=== PATIENT | female | born 1965 | race Two or more races ===

== ENCOUNTER 2023-08-13 15:07 | Inpatient (IN) | payer MEDICAID ==
[~2023-08-13] VITALS: Ht 162.6 cm; Wt 101.8 kg
[2023-08-13 15:40] VITALS: PULSE 57; RESP 10; O2SAT 96
[2023-08-13 16:00] LABS: Basophils # (auto) 0.1 10 ^3/uL (0-0.2); Eosinophils # (auto) 0.3 10 ^3/uL (0-0.8); Eosinophils % (auto) 2.2 % (0.0-7.0); Hemoglobin 11.3 g/dL (12.2-16.2); Lymphocytes # (auto) 1.8 10 ^3/uL (0.4-5.4); Neutrophils # (auto) 8.6 10 ^3/uL (1.6-8.6); White Blood Cell 11.7 10^3/uL (4.4-10.8)
[2023-08-13 16:01] LABS: Basophils % (auto) 0.9 % (0.0-2.0); Hematocrit 36.9 % (36.0-46.0); Mean Corpuscular Hemoglobin 19.3 pg (28.0-32.0); Mean Corpuscular Hgb Conc. 30.7 g/dL (32.0-36.0); Mean Corpuscular Volume 63.1 fL (80.0-100.0); Monocytes % (auto) 8.8 % (0.0-12.0); Neutrophils % (auto) 73.1 % (37.0-80.0); Red Blood Cells 5.85 10^6/uL (4.0-5.20)
[2023-08-13 16:02] LABS: Red Cell Distribution Width 24.6 % (11.8-14.3)
[2023-08-13 16:11] LABS: Alanine Aminotransferase 12 U/L (7-40); Albumin 4.1 g/dL (3.2-4.8); Alkaline Phosphatase 108 U/L (46-116); Anion Gap 8 (5-15); Aspartate Aminotransferase 16 U/L (13-40); BUN/Creatinine Ratio 25.6 (10.0-20.0); Bilirubin, Total 0.2 mg/dL (0.2-1.0); Blood Urea Nitrogen 40 mg/dL (9-23); Calcium 9.6 mg/dL (8.5-10.1); Carbon Dioxide 28 mmol/L (20-30); Chloride 103 mmol/L (98-107); Glucose 162 mg/dL (74-106); Potassium 3.9 mmol/L (3.5-5.1); Sodium 139 mmol/L (136-145); Total Protein 6.8 g/dL (5.7-8.2)
[2023-08-13 16:20] LABS: Anisocytosis Moderate; Hypochromia Marked; Large Platelets FEW; Platelet Estimate Adequate; Tear Drop Cells FEW
[2023-08-13] MEDS ORDERED: DEXTROSE (50%) 50ML SYRG IV PRN (19:30)
[2023-08-13] MEDS ORDERED: PREG200C36 PO (19:45)
[2023-08-13] MEDS ORDERED: DULO1CAP6 PO (19:45)
[2023-08-13] MEDS ORDERED: NITROGLYCERIN 0.4 MG SL TAB SL PRN (19:45)
[2023-08-13] MEDS ORDERED: FURO40TA4 PO (19:45)
[2023-08-13] MEDS ORDERED: ASPI81CH49 PO (19:45)
[2023-08-13] MEDS ORDERED: AMIO200T13 PO (19:45)
[2023-08-13] MEDS ORDERED: CYCL-611 PO (19:45)
[2023-08-13] MEDS ORDERED: ACETAMINOPHEN 325 MG TAB PO PRN (19:45)
[2023-08-13] MEDS ORDERED: FENO145T27 PO (19:45)
[2023-08-13] MEDS ORDERED: FAMO-12 PO (19:45)
[2023-08-13] MEDS ORDERED: APIX5TAB PO (19:45)
[2023-08-13] MEDS ORDERED: MORPHINE SULFATE INJ 2 MG/ml SYRG IV PRN (19:45)
[2023-08-13] MEDS ORDERED: ATOR40TA52 PO (19:45)
[2023-08-13] MEDS ORDERED: HYDR1TAB97 PO (19:45)
[2023-08-13] MEDS ORDERED: LISI2.5T47 PO (19:45)
[2023-08-13 19:52] LABS: Triglycerides 224 mg/dL (< 150)
[2023-08-13 19:53] LABS: LDL Cholesterol 83 mg/dL (< 100)
[2023-08-13 19:54] LABS: Cholesterol 152 mg/dL (< 200); HDL Cholesterol 41 mg/dL (40-59)
[2023-08-13 20:32] VITALS: PULSE 54; RESP 11; O2SAT 95
[2023-08-13 20:49] VITALS: PULSE 67; RESP 16; O2SAT 100
[2023-08-13 21:20] LABS: Amphetamine Screen, Urine Neg (NEGATIVE); Barbiturate Scree,Urine Neg (NEGATIVE); Benzodiazephine Screen, Urine Neg (NEGATIVE); Cocaine Screen, Urine Neg (NEGATIVE)
[2023-08-13 21:21] LABS: Cannabinoid Screen, Urine Neg (NEGATIVE); Opiate Scree,Urine Neg (NEGATIVE); Phencyclidine Screen, Urine Neg (NEGATIVE)
[2023-08-13] MEDS: SODIUM CHLORIDE 0.9% 1,000 ML IV ONE (21:51)
[2023-08-13] MEDS: SODIUM CHLORIDE 0.9% 1,000 ML IV SCH (21:59)
[2023-08-13] MEDS: PREGABALIN 25 MG CAP PO SCH (22:16)
[2023-08-13] MEDS: PREGABALIN CAPSULE 75 MG CAP PO SCH (22:16)
[2023-08-13] MEDS: AMIODARONE HCL 200 MG TAB PO SCH (22:17)
[2023-08-13] MEDS: APIXABAN 5 MG TAB PO SCH (22:17)
[2023-08-13] MEDS: ACCU-CHEK COMFORT CURVE STRIP VI SCH (22:17)
[2023-08-13] MEDS: InsuLIN REG 1unit/0.01ml Soln (100units/ml) SC SCH (22:18)
[2023-08-13 22:40] VITALS: BP 120/64; PULSE 63; RESP 17; TEMP 97.7; O2SAT 98
[2023-08-14] VITALS (8 sets, daily range): BP systolic 118–152; BP diastolic 70–85; PULSE 61–73; RESP 16–20; TEMP 97.8–98.2; O2SAT 94–97
[2023-08-14 07:12] LABS: Basophils # (auto) 0.1 10 ^3/uL (0-0.2); Eosinophils # (auto) 0.2 10 ^3/uL (0-0.8); Eosinophils % (auto) 2.8 % (0.0-7.0); Hemoglobin 11.1 g/dL (12.2-16.2); Lymphocytes # (auto) 1.3 10 ^3/uL (0.4-5.4); Neutrophils # (auto) 5.1 10 ^3/uL (1.6-8.6)
[2023-08-14 07:14] LABS: Basophils % (auto) 1.2 % (0.0-2.0); Hematocrit 36.4 % (36.0-46.0); Lymphocytes % (auto) 17.6 % (10.0-50.0); Mean Corpuscular Hemoglobin 19.4 pg (28.0-32.0); Mean Corpuscular Hgb Conc. 30.4 g/dL (32.0-36.0); Mean Corpuscular Volume 63.7 fL (80.0-100.0); Monocytes # (auto) 0.6 10 ^3/uL (0-1.3); Monocytes % (auto) 8.7 % (0.0-12.0); Neutrophils % (auto) 69.7 % (37.0-80.0); Nucleated Red Blood Cells % 0.1 %; Red Blood Cells 5.72 10^6/uL (4.0-5.20); White Blood Cell 7.4 10^3/uL (4.4-10.8)
[2023-08-14 07:19] LABS: Alkaline Phosphatase 100 U/L (46-116); Anion Gap 9 (5-15); Aspartate Aminotransferase 18 U/L (13-40); BUN/Creatinine Ratio 19.1 (10.0-20.0); Calcium 9.4 mg/dL (8.5-10.1); Carbon Dioxide 25 mmol/L (20-30); Chloride 106 mmol/L (98-107); Glucose 192 mg/dL (74-106); Potassium 4.2 mmol/L (3.5-5.1); Sodium 140 mmol/L (136-145)
[2023-08-14 07:20] LABS: Bilirubin, Total 0.3 mg/dL (0.2-1.0); Total Protein 6.9 g/dL (5.7-8.2)
[2023-08-14 07:22] LABS: Alanine Aminotransferase 9 U/L (7-40); Blood Urea Nitrogen 25 mg/dL (9-23)
[2023-08-14 07:25] LABS: Red Cell Distribution Width 24.7 % (11.8-14.3)
[2023-08-14] MEDS: ATORVASTATIN 20 MG TAB PO SCH (10:46)
[2023-08-14] MEDS: ASPirin 81 mg TAB PO SCH (10:46)
[2023-08-15] VITALS (9 sets, daily range): BP systolic 126–168; BP diastolic 57–89; PULSE 60–86; RESP 14–20; TEMP 36.8; O2SAT 96–98
[2023-08-15] MEDS: FLECAINIDE ACETATE 50 MG TAB PO ONE (10:31)
[2023-08-15] MEDS ORDERED: FLE50T PO (17:17)
[2023-08-15] MEDS ORDERED: FLECAINIDE ACETATE 50 MG TAB PO SCH (22:00)
== END 2023-08-15 18:40 | disposition home or self-care (01) | DRG 204 ==
LOC: EDBD 15:07 → ER 15:07 → TELE-WESTW 19:43 → TELE 19:43 → TELE-WESTW 23:19
PROVIDERS: ADMIT Nurse Practitioner Family; ATTEND Nurse Practitioner Acute Care
DX: I95.1 Orthostatic hypotension (principal); J96.01 Acute respiratory failure with hypoxia; N17.9 Acute kidney failure, unspecified; I49.5 Sick sinus syndrome; I24.9 Acute ischemic heart disease, unspecified; I48.0 Paroxysmal atrial fibrillation; E11.22 Type 2 diabetes mellitus with diabetic chronic kidney disease; E11.65 Type 2 diabetes mellitus with hyperglycemia; E66.01 Morbid (severe) obesity due to excess calories; E78.5 Hyperlipidemia, unspecified; N18.31 Chronic kidney disease, stage 3a; F17.210 Nicotine dependence, cigarettes, uncomplicated; I12.9 Hypertensive chronic kidney disease with stage 1 through stage 4 chronic kidney disease, or unspecified chronic kidney disease; Z79.4 Long term (current) use of insulin; Z79.82 Long term (current) use of aspirin; Z82.49 Family history of ischemic heart disease and other diseases of the circulatory system; Z86.711 Personal history of pulmonary embolism; Z88.0 Allergy status to penicillin; Z68.38 Body mass index [BMI] 38.0-38.9, adult
CPT/HCPCS: 36415; 71045; 80053; 80061; 80307; 82962; 83036; 83880; 83930; 84443; 84484; 85025; 85379; 86701; 86703; 93005; 93306; 93886; 99291; G0378; J1815

== ENCOUNTER 2023-08-21 19:47 | Emergency (ER) | payer MEDICAID ==
[~2023-08-21] VITALS: Ht 162.6 cm; Wt 100.0 kg
[~2023-08-21 19:47] MED LIST: APIX5TAB PO; ASPI81CH49 PO; ATOR40TA52 PO; CYCL-611 PO; DULO1CAP6 PO; FAMO-12 PO; FENO145T27 PO; FLE50T PO; FURO40TA4 PO; HYDR1TAB97 PO; LISI2.5T47 PO; PREG200C36 PO
[2023-08-21 21:33] LABS: Alanine Aminotransferase 19 U/L (7-40); Albumin 3.9 g/dL (3.2-4.8); Alkaline Phosphatase 108 U/L (46-116); Anion Gap 6 (5-15); Aspartate Aminotransferase 26 U/L (13-40); BUN/Creatinine Ratio 12.9 (10.0-20.0); Blood Urea Nitrogen 22 mg/dL (9-23); Calcium 9.4 mg/dL (8.7-10.4); Carbon Dioxide 31 mmol/L (20-30); Chloride 102 mmol/L (98-107); Glucose 174 mg/dL (74-106); Potassium 3.7 mmol/L (3.5-5.1); Sodium 139 mmol/L (136-145)
[2023-08-21 21:34] LABS: Bilirubin, Total 0.2 mg/dL (0.2-1.0); Total Protein 6.8 g/dL (5.7-8.2)
[2023-08-21 21:41] LABS: Basophils # (auto) 0.1 10 ^3/uL (0-0.2); Eosinophils # (auto) 0.2 10 ^3/uL (0-0.8); Hemoglobin 11.3 g/dL (12.2-16.2); Lymphocytes # (auto) 1.5 10 ^3/uL (0.4-5.4); Mean Corpuscular Volume 64.5 fL (80.0-100.0); White Blood Cell 9.6 10^3/uL (4.4-10.8)
[2023-08-21 21:43] LABS: Basophils % (auto) 1.2 % (0.0-2.0); Lymphocytes % (auto) 15.3 % (10.0-50.0); Mean Corpuscular Hemoglobin 20.2 pg (28.0-32.0); Mean Corpuscular Hgb Conc. 31.3 g/dL (32.0-36.0); Monocytes # (auto) 0.8 10 ^3/uL (0-1.3); Monocytes % (auto) 8.8 % (0.0-12.0); Neutrophils % (auto) 72.7 % (37.0-80.0); Red Blood Cells 5.58 10^6/uL (4.0-5.20)
[2023-08-21 21:49] LABS: Red Cell Distribution Width 25.4 % (11.8-14.3)
[2023-08-21 22:19] LABS: Anisocytosis Moderate; Platelet Estimate Adequate
[2023-08-21 22:20] LABS: Hypochromia Moderate; Ovalocytes FEW
[2023-08-21] MEDS: IOHEXOL 350 MG/ML 100ML IJ ONE (23:47)
[2023-08-22 00:01] VITALS: BP 126/59; PULSE 60; RESP 18; TEMP 98.4; O2SAT 99
== END 2023-08-22 00:05 | disposition home or self-care (01) ==
LOC: ER 19:47
DX: R53.1 Weakness (principal); R06.02 Shortness of breath; R55 Syncope and collapse; E11.22 Type 2 diabetes mellitus with diabetic chronic kidney disease; I12.9 Hypertensive chronic kidney disease with stage 1 through stage 4 chronic kidney disease, or unspecified chronic kidney disease; N18.9 Chronic kidney disease, unspecified; E78.5 Hyperlipidemia, unspecified; F17.210 Nicotine dependence, cigarettes, uncomplicated; F12.10 Cannabis abuse, uncomplicated; Z90.49 Acquired absence of other specified parts of digestive tract; Z88.0 Allergy status to penicillin; Z88.6 Allergy status to analgesic agent
CPT/HCPCS: 36415; 70450; 71045; 71275; 80053; 84484; 85025; 85379; 93005; 99285; Q9967

== ENCOUNTER 2024-06-05 18:18 | Inpatient (IN) | payer MEDICAID ==
[~2024-06-05] VITALS: Ht 193 cm; Wt 100.0 kg
[2024-06-05 19:02] LABS: Basophils # (auto) 0.1 10 ^3/uL (0-0.2); Eosinophils # (auto) 0.4 10 ^3/uL (0-0.8); Eosinophils % (auto) 4.8 % (0.0-7.0); Hemoglobin 12.9 g/dL (12.2-16.2); Lymphocytes % (auto) 13.1 % (10.0-50.0); Mean Corpuscular Hemoglobin 28.1 pg (28.0-32.0); Mean Corpuscular Hgb Conc. 33.1 g/dL (32.0-36.0); Monocytes % (auto) 13.2 % (0.0-12.0); Neutrophils # (auto) 5.2 10 ^3/uL (1.6-8.6); Neutrophils % (auto) 67.9 % (37.0-80.0); Nucleated Red Blood Cells % 0.1 %; Platelet Count (auto) 88 10^3/uL (140-450); Red Blood Cells 4.59 10^6/uL (4.0-5.20); White Blood Cell 7.6 10^3/uL (4.4-10.8)
--- NOTE | 2024-06-05 19:05 | ED.PDOC ---
HPI Comments 58-year-old female that came to the ER for chest pains. Patient has history of hypertension, diabetes, dyslipidemia, chronic kidney failure, CHF, AFib and HIV. Patient is on blood thinners, Eliquis. Patient discharged yesterday at [facility] for left-sided epistaxis. At the both 3:00 a.m. this morning, patient started experiencing sharp, sudden left-sided chest pains, nonradiating with shortness of breath. Upon arrival of paramedics, noted blood pressure of 86/5 mmHg. Saturating 96% on room air. Patient was given IV fluids while en route to the ER. Chief Complaint: Chest Pain Time Seen by MD: 19:05 Primary Care Provider: CANDICE Reviewed Notes: Wheel Blocker Notes Allergies: Coded Allergies: Loperamide (Verified Allergy, Severe, 08/13/23) Nystatin (Verified Allergy, Severe, 08/13/23) Penicillins (Verified Allergy, Severe, 08/13/23) Home Meds Active Scripts Flecainide Acetate (TAMBOCOR TABLET) 50 Mg Tb, 50 MG PO Q12HR for 30 Days, #60 TAB Prov:RAINER DIAZ EMOTIONAL SUPPORT TEACHER 08/15/23 Reported Medications Cyclobenzaprine HCl (Cyclobenzaprine Hydrochlo) 10 Mg Tab, 1 TAB PO BIDPRN PRN 08/13/23 Famotidine (Famotidine) 20 Mg Tab, 1 TAB PO BIDPRN PRN 08/13/23 Furosemide (Furosemide) 40 Mg Tab, 1 TAB PO DAILY 08/13/23 Hydrocodone-Acetaminophen (Hydrocodone/Acetaminophen 5-325 mg) 1 Tab Tab, 2 TAB PO BID 08/13/23 Duloxetine HCl (Duloxetine HCl) 60 Mg Cap, CAP PO 08/13/23 Pregabalin (Pregabalin) 200 Mg Cap, 1 CAP PO TID 08/13/23 Fenofibrate (FENOFIBRATE) 145 Mg Tab, 1 TAB PO 08/13/23 Lisinopril (Lisinopril) 2.5 Mg Tab, 1 TAB PO DAILY 08/13/23 Apixaban Base (ELIQUIS) 5 Mg Tab, 1 TAB PO BID 08/13/23 Aspirin (Aspirin) 81 Mg Chw, 1 TAB PO DAILY 08/13/23 Atorvastatin Calcium (ATORVASTATIN CALCIUM) 40 Mg Tab, 1 TAB PO DAILY 08/13/23 Information Source: Patient, Emergency Med Personnel Mode of Arrival: EMS Severity: Moderate Timing: Hours Duration: Intermittent Prehospital treatment: 12 Lead EKG, IVF, Oxygen Location: Chest (L) Radiation: No Radiation Quality: Sharp Onset: At Rest Cardiac Risk Factors: Hyperlipidemia, HTN, Diabetes PE Risk Factors: None History of: Similar pain in past Modifying Factors: Nothing Associated Signs and Symptoms: SOB Past Medical History PAST MEDICAL HISTORY: AFIB, CKF, DM, High Lipids, HIV, HTN Surgical History: Cholecystectomy, Hernia Repair 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 Pertinent GRADING MACHINE FEEDER History Family History Family History: Family hx of heart shanta Social History Smoker: Non-Smoker Alcohol: Occasionally Drugs: Marijuana Lives In: Home Constitutional: denies: chills, diaphoresis, fatigue, fever, malaise, sweats, weakness, others EENTM: reports: nose bleeding (Left-sided epistaxis); denies: blurred vision, double vision, ear bleeding, ear discharge, ear drainage, ear pain, ear ringing, eye pain, eye redness, hearing loss, mouth pain, mouth swelling, nasal discharge, nose congestion, nose pain, photophobia, tearing, throat pain, throat swelling, voice changes, others Respiratory: reports: shortness of breath; denies: cough, hemoptysis, orthopnea, SOB at rest, SOB with excertion, stridor, wheezing, others Cardiovascular: reports: chest pain Gastrointestinal: denies: abdomen distended, abdominal pain, blood streaked bowels, constipated, diarrhea, dysphagia, difficulty swallowing, hematemesis, melena, nausea, poor appetite, poor fluid intake, rectal bleeding, rectal pain, vomiting, others Genitourinary: denies: abnormal vagina bleeding, burning, dyspareunia, dysuria, flank pain, frequency, hematuria, incontinence, pain, , vagina discharge, urgency, others Neurological: denies: dizziness, fainting, headache, left sided numbness, left sided weakness, numbness, paresthesia, pre-existing deficit, right sided numbness, right sided weakness, seizure, speech problems, tingling, tremors, weakness, others Musculoskeletal: denies: back pain, gout, joint pain, joint swelling, muscle p ain, muscle stiffness, neck pain, others Integumetry: denies: bruises, change in color, change in hair/nails, dryness, laceration, lesions, lumps, rash, wounds, others Allergic/Immunocompromised: denies: Difficulty Healing, Frequent Infections, Hives, Itching, others Hematologic/Lymphatic: denies: anemia, blood clots, easy bleeding, easy bruising, swollen glands, others Endocrine: denies: excessive hunger, excessive sweating, excessive thirst, excessive urination, flushing, intolerance to cold, intolerance to heat, unexplained weight gain, unexplained weight loss, others Psychiatric: denies: anxiety, bipolar disorder, depression, hopeless, panic disorder, schizophrenia, sleepless, suicidal, others Physical Exam General Appearance: Obese HEENT: Normal ENT Inspection, Pharynx Normal, TMs Normal Neck: Full Range of Motion, Non-Tender, Normal, Normal Inspection Respiratory: Chest Non-Tender, Lungs Clear, No Accessory Muscle Use, No Respiratory Distress, Normal Breath Sounds Cardiovascular: No Edema, No JVD, No Murmur, No Gallop, Normal Peripheral Pulses, Regular Rate/Rhythm Breast Exam: Deferred Gastrointestinal: No Organomegaly, Non Tender, No Pulsatile Mass, Normal Bowel Sounds, Soft Genitalia: Deferred Pelvic: Deferred Rectal: Deferred Extremities: No calf tenderness, Normal capillary refill, Normal inspection, Normal range of motion, Non-tender, No pedal edema Musculoskeletal : Apperance: Normal Neurologic: Alert, preflight inspector II-XII nml as Tested, No Motor Deficits, Normal Affect, Normal Mood, No Sensory Deficits Cerebellar Function: Normal Reflexes: Normal Skin: Dry, Normal Color, Warm Lymphatic: No Adenopathy Was a procedure done? Was a procedure done?: No CP Differential Dx Differential Diagnosis: Angina, Anxiety / Panic Attack Differential Diagnosis: CHF Differential Diagnosis: Angina, Chest Wall Pain, Costochondritis, Esophageal reflux/spasm, Gastritis, Myocardial Infarction X-Ray, Labs, Meds, VS Vital Signs Date Time Temp Pulse Resp B/P (MAP) Pulse Ox O2 Delivery O2 Flow Rate FiO2 06/05/24 19:15 53 06/05/24 18:45 53 14 92/48 (63) 94 06/05/24 18:30 99.2 59 18 112/89 (97) 96 06/05/24 18:18 55 Lab Test 06/05/24 19:56 06/05/24 18:58 06/05/24 18:44 Range/Units Troponin I High Sensitivity Pending Pending 4 </=34 ng/L White Blood Count 7.6 4.4-10.8 10^3/uL Red Blood Count 4.59 4.0-5.20 10^6/uL Hemoglobin 12.9 12.2-16.2 g/dL Hematocrit 39.0 36.0-46.0 % Mean Corpuscular Volume 85.0 80.0-100.0 fL Mean Corpuscular Hemoglobin 28.1 28.0-32.0 pg Mean Corpuscular Hemoglobin Concent 33.1 32.0-36.0 g/dL Red Cell Distribution Width 20.3 H 11.8-14.3 % Platelet Count 88 L 140-450 10^3/uL Mean Platelet Volume 10.2 6.9-10.8 fL Neutrophils (%) (Auto) 67.9 37.0-80.0 % Lymphocytes (%) (Auto) 13.1 10.0-50.0 % Monocytes (%) (Auto) 13.2 H 0.0-12.0 % Eosinophils (%) (Auto) 4.8 0.0-7.0 % Basophils (%) (Auto) 1.0 0.0-2.0 % Neutrophils # (Auto) 5.2 1.6-8.6 10 ^3/uL Lymphocytes # (Auto) 1.0 0.4-5.4 10 ^3/uL Monocytes # (Auto) 1.0 0-1.3 10 ^3/uL Eosinophils # (Auto) 0.4 0-0.8 10 ^3/uL Basophils # (Auto) 0.1 0-0.2 10 ^3/uL Nucleated Red Blood Cells 0.1 % Platelet Estimate Decreased Large Platelets Few Anisocytosis (manual) Slight Sodium Level 140 136-145 mmol/L Potassium Level 4.0 3.5-5.1 mmol/L Chloride Level 109 H 98-107 mmol/L Carbon Dioxide Level 25 20-31 mmol/L Anion Gap 6 5-15 Blood Urea Nitrogen 23 9-23 mg/dL Creatinine 1.51 H 0.550-1.02 mg/dL Glomerular Filtration Rate Calc 40 >90 mL/min BUN/Creatinine Ratio 15.2 10.0-20.0 Serum Glucose 59 L 74-106 mg/dL Calcium Level 9.9 8.7-10.4 mg/dL B-Type Natriuretic Peptide 29.91 0-100 pg/mL Current Medications Medications (Trade) Dose Ordered Sig/Uyen Route Start Time Stop Time Status Last Admin Sodium Chloride 1,000 ml @ 1,000 mls/hr Q1H ONCE IV 06/05/24 19:45 06/05/24 20:44 06/05/24 19:58 CHEST RADIOGRAPH Indication: chest pain Technique: Frontal and lateral view of the chest was obtained Comparison: None FINDINGS: Lines and Tubes: None Lungs: Clear Pleura: No effusion. No pneumothorax. Cardiomediastinal contours: Unremarkable Bones: Unremarkable IMPRESSION: 1. No evidence of acute disease. Time of 1ST Reevaluation: 18:58 Reevaluation 1ST: Unchanged Patient Education/Counseling: Diagnosis, Treatment Family Education/Counseling: No Family Present Departure 1 Departure Time of Disposition: 20:18 (Patient presented with chest pain that was conc erning for possible STEMI, ACS, PE, Pneumonia, Muscle Strain, COPD, Dissection. Data: 1. I ordered and reviewed the result of at least 3 labs including a CBC, BMP, and Troponin. 2. I independently interpreted the following tests: EKG which shows atrial fibrillation and Chest X-ray which shows benign chest.Risk:This patient has a high risk of morbidity due to further diagnostic testing or treatment and may suffer from an acute cardiac or respiratory disorder. Workup reveals concern for ACS and patient should be admitted for further workup and possible expert consultation. ) Impression: Primary Impression: Acute chest pain Additional Impressions: Generalized weakness Epistaxis Disposition: ADMITTED INPATIENT Admit to: Med Surg Condition: Serious Critical Care Note Critical Care Time?: Yes Critical care comment: Acute chest pain Authorized and Performed by: Ashwin Griffiths MD Total critical care time: Approximately 34 minutes Due to a high probability of clinically significant, life threatening deterioration, the patient required my highest level of preparedness to intervene emergently and I personally spent this critical care time directly and personally managing the patient. This critical care time included obtaining a history; examining the patient; pulse oximetry; ordering and review of studies; arranging urgent treatment with development of a management plan; evaluation of patient's response to treatment; frequent reassessment; and, discussions with other providers. This critical care time was performed to assess and manage the high probability of imminent, life-threatening deterioration that could result in multi-organ failure. It was exclusive of separately billable procedures and treating other patients and teaching time. Please see my other sections and the rest of the note for further information on patient assessment and treatment. Stability Stability form required: No Heart Score Heart Score: Heart Score Response (Comments) Value History Moderate Suspicious 1 EKG Repolarization Disturb 1 Age 45-64 1 Risk Factors >3 or Hx ASHD 2 Troponin Normal limit 0 Total 5 I personally scribed for ASHWIN GRIFFITHS MD ([facility]IST [facility]) on 06/05/24 at 19:05. Electronically submitted by Adan Arguello ([facility]). I personally scribed for ASHWIN GRIFFITHS MD ([email or web address]) on 06/05/24 at 20:18. Electronically submitted by Adan Arguello ([facility]). ASHWIN GRIFFITHS MD Jun 05, 2024 19:05
[2024-06-05 19:15] LABS: Sodium 140 mmol/L (136-145)
[2024-06-05 19:16] LABS: Anion Gap 6 (5-15); Calcium 9.9 mg/dL (8.7-10.4); Carbon Dioxide 25 mmol/L (20-31)
[2024-06-05 19:20] LABS: Red Cell Distribution Width 20.3 % (11.8-14.3)
[2024-06-05 19:21] LABS: Anisocytosis Slight; BUN/Creatinine Ratio 15.2 (10.0-20.0); Platelet Estimate Decreased
[2024-06-05 19:22] LABS: Blood Urea Nitrogen 23 mg/dL (9-23); Chloride 109 mmol/L (98-107); Glucose 59 mg/dL (74-106); Large Platelets FEW
[2024-06-05] MEDS: SODIUM CHLORIDE 0.9% 1,000 ML IV ONE ×2 (19:58→21:30)
[2024-06-05] MEDS: ASPirin 325 MG TAB PO ONE (19:59)
[2024-06-05 20:00] VITALS: RESP 18; O2SAT 96
--- NOTE | 2024-06-05 20:09 | DVH ---
CHEST RADIOGRAPH Indication: chest pain Technique: Frontal and lateral view of the chest was obtained Comparison: None FINDINGS: Lines and Tubes: None Lungs: Clear Pleura: No effusion. No pneumothorax. Cardiomediastinal contours: Unremarkable Bones: Unremarkable IMPRESSION: 1. No evidence of acute disease.
[2024-06-05] MEDS: ACETAMINOPHEN 325 MG TAB PO ONE (20:36)
[2024-06-05] MEDS: ATROPINE SULF 1 MG/10ml SYR IV ONE (23:30)
[2024-06-05] MEDS: ATROPINE SULF 1 MG/10ml SYR ONE (23:37)
--- NOTE | 2024-06-05 23:42 | DVHHPRES ---
History of Present Illness Resident Creating Document: KAILEE RENTERIA RESIDENT History of Present Illness Patient is a 58-year-old female with past medical history of HIV diagnosed 35 years ago, atrial fibrillation diagnosed 7 months ago, ? CHF, diabetes, CKD 3, hypertension, pulmonary embolism, orthostatic hypotension, who came in due to chest pain. According to the patient, yesterday on 06/05/2024 at 3:00 a.m. she started experiencing a midepigastric chest pain which was sharp and stabbing in character, 10/10 in intensity and constant in nature. Patient notes that she had similar pain symptoms in the past but workup did not reveal anything. Of note, patient sustained a fall few days ago and hurt her left hip. Patient is somnolent and nodded off multiple times during this interview. On review of systems she is complaining of fatigue, fever, dry cough, dyspnea, shortness of breath, palpitations and vomiting. Serial troponins were 4, 4, 4. Chest x-ray showed no acute disease. EKG showed sinus bradycardia. Past Medical History HIV diagnosed 35 years ago, atrial fibrillation diagnosed 7 months ago, ? CHF, diabetes, CKD 3, hypertension, pulmonary embolism, orthostatic hypotension Past Surgical History Right ovarian cyst removal, hernia repair surgery, cholecystectomy Past Social History Smoking: Smokes 5-6 cigarettes per day for the last 45 years Alcohol: rarely Drugs: denies. Review of Systems Constitutional: Yes: Fever, Chills, Weakness, Malaise; No: Sweats, Other Eyes: No: Pain, Vision change, Conjunctivae inflammation, Eyelid inflammation, Other, Redness ENT: Nose discharge; No: Ear pain, Ear discharge, Nose pain, Nose congestion, Mouth pain, Mouth swelling, Throat pain, Throat swelling, Other Respiratory: Cough, Dry, Shortness of breath, Wheezing; No: SOB with excertion, Hemoptysis, Pleuritic Pain, Sputum, Wheezing, Other Cardiovascular: Chest Pain, Palpitations; No: Orthopnea, Paroxysmal Noc. Dyspnea, Edema, Lt Headedness, Other Gastrointestinal: Vomiting, Abdominal Pain; No: Nausea, Diarrhea, Constipation, Melena, Hematochezia, Other Genitourinary: No Dysuria, No Frequency, No Incontinence, No Hematuria, No Retention, No Other Musculoskeletal: No: other, neck pain, shoulder pain, arm pain, back pain, hand pain, leg pain, foot pain Skin: No: Rash, Lesions, Jaundice, Bruising, Other Neurological: No: Weakness, Numbness, Incoordination, Change in speech, Confusion, Seizures, Other Allergies: Coded Allergies: Loperamide (Verified Allergy, Severe, 08/13/23) Nystatin (Verified Allergy, Severe, 08/13/23) Penicillins (Verified Allergy, Severe, 08/13/23) Exam Vital Signs Vital Signs Date Time Temp Pulse Resp B/P (MAP) Pulse Ox O2 Delivery O2 Flow Rate FiO2 06/05/24 21:05 53 06/05/24 18:45 14 92/48 (63) 94 06/05/24 18:30 99.2 Exam Psoriatic patchy rash noted on left elbow General Appearance: Alert, Oriented X3 (Somnolent) HEENT: Atraumatic, PERRLA, EOMI, Mucous membr. moist/pink Respiratory: Other (Trace wheezes) Cardiovascular: Other (Bradycardic) Abdominal: Normal bowel sounds, Other (Generalized tenderness to palpation) Extremities: Other (Stasis dermatitis noted on bilateral lower extremities) Neuro: Normal speech, Strength at 5/5 X4 ext Psych/Mental Status: Mental status NL, Mood NL Labs/Xrays Labs Test 06/05/24 21:40 06/05/24 18:44 Range/Units Troponin I High Sensitivity 5 </=34 ng/L White Blood Count 7.6 4.4-10.8 10^3/uL Red Blood Count 4.59 4.0-5.20 10^6/uL Hemoglobin 12.9 12.2-16.2 g/dL Hematocrit 39.0 36.0-46.0 % Mean Corpuscular Volume 85.0 80.0-100.0 fL Mean Corpuscular Hemoglobin 28.1 28.0-32.0 pg Mean Corpuscular Hemoglobin Concent 33.1 32.0-36.0 g/dL Red Cell Distribution Width 20.3 H 11.8-14.3 % Platelet Count 88 L 140-450 10^3/uL Mean Platelet Volume 10.2 6.9-10.8 fL Neutrophils (%) (Auto) 67.9 37.0-80.0 % Lymphocytes (%) (Auto) 13.1 10.0-50.0 % Monocytes (%) (Auto) 13.2 H 0.0-12.0 % Eosinophils (%) (Auto) 4.8 0.0-7.0 % Basophils (%) (Auto) 1.0 0.0-2.0 % Neutrophils # (Auto) 5.2 1.6-8.6 10 ^3/uL Lymphocytes # (Auto) 1.0 0.4-5.4 10 ^3/uL Monocytes # (Auto) 1.0 0-1.3 10 ^3/uL Eosinophils # (Auto) 0.4 0-0.8 10 ^3/uL Basophils # (Auto) 0.1 0-0.2 10 ^3/uL Nucleated Red Blood Cells 0.1 % Platelet Estimate Decreased Large Platelets Few Anisocytosis (manual) Slight Sodium Level 140 136-145 mmol/L Potassium Level 4.0 3.5-5.1 mmol/L Chloride Level 109 H 98-107 mmol/L Carbon Dioxide Level 25 20-31 mmol/L Anion Gap 6 5-15 Blood Urea Nitrogen 23 9-23 mg/dL Creatinine 1.51 H 0.550-1.02 mg/dL Glomerular Filtration Rate Calc 40 >90 mL/min BUN/Creatinine Ratio 15.2 10.0-20.0 Serum Glucose 59 L 74-106 mg/dL Calcium Level 9.9 8.7-10.4 mg/dL B-Type Natriuretic Peptide 29.91 0-100 pg/mL Assessment/Plan Assessment/Plan Questionable cardiogenic shock Sinus bradycardia Chest pain Atrial fibrillation diagnosed 7 months ago, on amiodarone at home - patient received IV NS 2 L - atropine 1 mg - started on norepinephrine drip, currently on 4 mcg - aspirin 325 mg once - atorvastatin 40 mg - IV Protonix 40 mg once - Carafate 1 g q.i.d. - cardiology consulted s/p mechanical fall - Head CT: No acute intracranial abnormality. Left maxillary sinusitis. - L hip xray: There is no evidence of acute fracture or dislocation. Soft tissues are unremarkable. History of HIV diagnosed 35 years ago - resumed home medication triumeq (abacavir, dolutegravir, lamivudine) TOÑA on CKD stage 3 - monitor Acute intractable abdominal pain - CTAP: 3 mm nonobstructing calculi is seen in the midpole of the right kidney. No hydronephrosis. Normal appendix - CXR: No evidence of acute disease Secondary hypercoagulable state, history of pulmonary embolism and atrial fibrillation - resumed home medication Eliquis 5 mg b.i.d. Goals of care: Full code, discussed for >16 minutes on 11/27/23 Plan discussed with patient Plan discussed with Dr. Sanchez Plan discussed with: Patient, Other (RN) Date of Service: Jun 05, 2024 Billing Provider: EDUARDO SANCHEZ MD Common Visit Codes: [id number] INP/OBS CARE (HIGH) KAILEE RENTERIA RESIDENT Jun 05, 2024 23:42 EDUARDO SANCHEZ MD Jun 06, 2024 09:01
[2024-06-06 00:06] LABS: INR 1.07 (0.9-1.15); Partial Thromboplastin Time 26.8 SEC (24.5-34.5); Prothrombin Time 11.3 sec (9.3-11.8)
[2024-06-06] MEDS: PANTOPRAZOLE 40 MG/10 ML VIAL INJ IV ONE (00:27)
--- NOTE | 2024-06-06 00:27 | DVH ---
CLINICAL INDICATION: s/p fall TECHNIQUE: 4 views of the pelvis and left hip. Comparison: None FINDINGS/IMPRESSION: There is no evidence of acute fracture or dislocation. Soft tissues are unremarkable.
--- NOTE | 2024-06-06 00:29 | DVH ---
EXAM: CT HEAD WITHOUT CONTRAST INDICATION: s/p fall TECHNIQUE: CT of the head without intravenous contrast. Radiation Dose : 1. Head: CT Dose: CTDI volume is 64 mGy. Dose-length product is 1268 mGy*cm The dose indicators for CT are the volume Computed Tomography (CT) Dose Index (CTDIvol) and the Dose Length Product (DLP), and are measured in units of mGy and mGy-cm, respectively. These indicators are not patient dose, but values generated from the CT scanner acquisition factors. The report includes radiation exposure data for exposures received during this examination. COMPARISON: CT HEAD WITHOUT CONTRAST on DOS: 08/21/23 FINDINGS: There is no evidence of acute intracranial hemorrhage, extra-axial collection, mass effect, midline s hift, herniation or hydrocephalus. The ventricles, sulci and cisterns are age appropriate. The jackson-white differentiation is intact. Patchy periventricular and subcortical white matter hypoattenuation is nonspecific but may be related to small vessel ischemic disease. Extensive mucosal thickening of the left maxillary sinus. The surrounding soft tissues and osseous structures are unremarkable. IMPRESSION: 1. No acute intracranial abnormality. 2. Left maxillary sinusitis. Radiation optimization: All CT scans at this facility use at least one of these dose optimization fany hniques: automated exposure control mA and/or kV adjustment per patient size (includes targeted exam s where dose is matched to clinical indication) or iterative reconstruction.
--- NOTE | 2024-06-06 00:43 | DVH ---
Exam: CT CT AB PEL WO CON-NO ORAL OR IV History: acute intractable abdominal pain Comparison Study: None Technique: Multidetector spiral CT of the abdomen was performed from lung bases to pubic symphysis. Imaging was performed without IV contrast. Axial, coronal and sagittal multiplanar reformats were ob tained from the axial data set by the technologist. Radiation Dose : 1. Abdomen/Pelvis: CTDIvol 24 mGy, DLP 1537 mGy*cm. Findings: Evaluation of solid organs is limited due to lack of intravenous contrast use. Lung Bases: No acute or significant lung base finding. Normal heart size. No pleural or pericardial effusion. Liver: The liver is normal in size. No focal lesions. Gallbladder and Biliary Tree: Gallbladder is surgically absent. Spleen: Unremarkable Pancreas: The pancreas is grossly normal in appearance. Adrenal Glands: Unremarkable Kidneys: 3 mm nonobstructing calculi seen in the midpole of the right kidney. No hydronephrosis. Bladder: Grossly unremarkable for degree of distention. Bowel: The stomach is grossly normal in appearance. Small bowel and colon are normal in caliber and d istribution. Normal appendix is visualized in the right lower quadrant without findings of appendici tis. Ascites: Absent Lymphadenopathy: No mesenteric, retroperitoneal or periportal lymphadenopathy. Abdominal Wall and Mesentery: Unremarkable. Vasculature: The visualized abdominal aorta is normal in size and caliber. Evaluation of abdominal a nd pelvic vessels is limited due to lack of intravenous contrast. Pelvic Organs: Unremarkable Musculoskeletal: No aggressive focal bony lesions, acute fractures or dislocation. IMPRESSION: 1. 3 mm nonobstructing calculi is seen in the midpole of the right kidney. No hydronephrosis 2. Normal appendix Radiation optimization: All CT scans at this facility use at least one of these dose optimization fany hniques: automated exposure control mA and/or kV adjustment per patient size (includes targeted exam s where dose is matched to clinical indication) or iterative reconstruction.
[2024-06-06 00:49] LABS: Erythrocyte Sedimentation Rate 25 mm/hr (0-20)
[2024-06-06] MEDS: NOREPINEPHRINE 8 MG/250ML KIT 250 ML IV SCH (01:15)
[2024-06-06 01:16] LABS: Urine Bacteria FEW /hpf (None Seen); Urine Blood 2+ /uL (Negative); Urine Clarity Clear (Clear); Urine Color Light-Yellow (Yellow); Urine Protein, UAD Negative (Negative); Urine Squamous Epithelial Cell FEW /hpf (<5); Urine Urobilinogen Normal (Negative); Urine WBC 2 /hpf (0 - 5); Urine pH 5.5 (5.0-9.0)
[2024-06-06] MEDS: NOREPINEPHRINE 8 MG/250ML KIT 250 ML IV ONE (01:20)
[2024-06-06] MEDS: SUCRALFATE 1 GM/10 ML ORAL SUSP PO SCH (06:22)
--- NOTE | 2024-06-06 07:01 | ECG ---
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
--- NOTE | 2024-06-06 07:01 | ECG ---
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
[2024-06-06 08:07] LABS: Amphetamine Screen, Urine Neg (NEGATIVE); Barbiturate Scree,Urine Neg (NEGATIVE); Benzodiazephine Screen, Urine Neg (NEGATIVE); Cannabinoid Screen, Urine Neg (NEGATIVE); Cocaine Screen, Urine Neg (NEGATIVE); Opiate Scree,Urine Neg (NEGATIVE); Phencyclidine Screen, Urine Neg (NEGATIVE)
[2024-06-06] MEDS: APIXABAN 5 MG TAB PO SCH (10:04)
[2024-06-06] MEDS: TRIUMEQ PO SCH (10:05)
[2024-06-06 10:55] LABS: Basophils # (auto) 0 10 ^3/uL (0-0.2); Basophils % (auto) 0.8 % (0.0-2.0); Eosinophils # (auto) 0.3 10 ^3/uL (0-0.8); Eosinophils % (auto) 4.7 % (0.0-7.0); Hematocrit 38.1 % (36.0-46.0); Hemoglobin 12.6 g/dL (12.2-16.2); Lymphocytes # (auto) 0.6 10 ^3/uL (0.4-5.4); Lymphocytes % (auto) 10.8 % (10.0-50.0); Mean Corpuscular Hemoglobin 28.4 pg (28.0-32.0); Mean Corpuscular Hgb Conc. 32.9 g/dL (32.0-36.0); Mean Corpuscular Volume 86.2 fL (80.0-100.0); Monocytes # (auto) 0.4 10 ^3/uL (0-1.3); Monocytes % (auto) 7.8 % (0.0-12.0); Neutrophils # (auto) 4.2 10 ^3/uL (1.6-8.6); Neutrophils % (auto) 75.9 % (37.0-80.0); Nucleated Red Blood Cells % 0.1 %; Platelet Count (auto) 77 10^3/uL (140-450); Red Blood Cells 4.42 10^6/uL (4.0-5.20); Red Cell Distribution Width 20.7 % (11.8-14.3); White Blood Cell 5.5 10^3/uL (4.4-10.8)
[2024-06-06] MEDS ORDERED: DEXTROSE (50%) 50ML SYRG IV PRN (11:00)
[2024-06-06 11:14] LABS: Alanine Aminotransferase 24 U/L (7-40); Albumin 4.2 g/dL (3.2-4.8); Alkaline Phosphatase 61 U/L (46-116); Anion Gap 6 (5-15); BUN/Creatinine Ratio 15.4 (10.0-20.0); Bilirubin, Total 0.3 mg/dL (0.2-1.0); Blood Urea Nitrogen 22 mg/dL (9-23); Calcium 9.4 mg/dL (8.7-10.4); Carbon Dioxide 26 mmol/L (20-31); Potassium 3.7 mmol/L (3.5-5.1); Sodium 142 mmol/L (136-145); Total Protein 6.8 g/dL (5.7-8.2)
[2024-06-06 11:18] LABS: Aspartate Aminotransferase 42 U/L (13-40); Blood Alcohol < 3.0 mg/dL (<10); Chloride 110 mmol/L (98-107); Glucose 234 mg/dL (74-106)
[2024-06-06] MEDS: ACCU-CHEK COMFORT CURVE STRIP VI SCH (12:20)
[2024-06-06] MEDS: InsuLIN REG 1unit/0.01ml Soln (100units/ml) SC SCH (12:25)
--- NOTE | 2024-06-06 13:09 | DVHINCON2 ---
Date Seen: Jun 06, 2024 Referring Physician MD Denice Reason for Consultation Sinus bradycardia History of Present Illness This is a 58-year-old female who presented to the emergency room via EMS with a chief complaint of chest pain since 299. Describes the chest pain as intermittent, localized to the right inframammary area and radiating to the left-side, sharp/stabbing in nature, worse with inhalation/movement/cough, and associated with SOB, GUILLORY, and PND. Three hundred admission last night the patient developed a systolic blood pressure in the 70s mmHg and a heart rate as low as 37 bpm for which she was medicated with atropine 1 mg IV x1 and placed on a Levophed drip which was turned off earlier today. She underwent multiple 12 lead electrocardiogram revealing a sinus bradycardia rhythm with no evidence of ischemia. Serial troponin levels are negative. 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 Denies undergoing cardiac catheterizations in the past. Significant medical history includes paroxysmal atrial fibrillation on Eliquis and amiodarone therapy, congestive heart failure, history of PE, orthostatic hypotension, chronic kidney disease, insulin-dependent diabetes mellitus, hypertension, dyslipidemia, HIV diagnosed 35 years ago, carpal tunnel syndrome, tobacco use, and morbid obesity. Past Medical History Past medical history reviewed. No other significant than mentioned above. Past Surgical History Right ovarian cyst removal Hernia repair Cholecystectomy Family History: Diabetes mellitus G8 FATHER G8 SISTER Suicide G8 BROTHER Family History Family history reviewed. Social History Denies the use of illicit drugs. Admits to occasional alcohol use. Smokes 5-6 cigarettes per day. Allergies: Coded Allergies: Loperamide (Verified Allergy, Severe, 08/13/23) Nystatin (Verified Allergy, Severe, 08/13/23) Penicillins (Verified Allergy, Severe, 08/13/23) Home Meds Active Scripts Flecainide Acetate (TAMBOCOR TABLET) 50 Mg Tb, 50 MG PO Q12HR for 30 Days, #60 TAB Prov:RAINER DIAZ DOPE SPRAYER 08/15/23 Reported Medications Cyclobenzaprine HCl (Cyclobenzaprine Hydrochlo) 10 Mg Tab, 1 TAB PO BIDPRN PRN 08/13/23 Famotidine (Famotidine) 20 Mg Tab, 1 TAB PO BIDPRN PRN 08/13/23 Furosemide (Furosemide) 40 Mg Tab, 1 TAB PO DAILY 08/13/23 Hydrocodone-Acetaminophen (Hydrocodone/Acetaminophen 5-325 mg) 1 Tab Tab, 2 TAB PO BID 08/13/23 Duloxetine HCl (Duloxetine HCl) 60 Mg Cap, CAP PO 08/13/23 Pregabalin (Pregabalin) 200 Mg Cap, 1 CAP PO TID 08/13/23 Fenofibrate (FENOFIBRATE) 145 Mg Tab, 1 TAB PO 08/13/23 Lisinopril (Lisinopril) 2.5 Mg Tab, 1 TAB PO DAILY 08/13/23 Apixaban Base (ELIQUIS) 5 Mg Tab, 1 TAB PO BID 08/13/23 Aspirin (Aspirin) 81 Mg Chw, 1 TAB PO DAILY 08/13/23 Atorvastatin Calcium (ATORVASTATIN CALCIUM) 40 Mg Tab, 1 TAB PO DAILY 08/13/23 Home Meds Home medications reviewed. Current Medications Current Medications Medications (Trade) Dose Ordered Sig/Uyen Route PRN Reason Start Time Stop Time Status Last Admin Sucralfate (Carafate Susp) 1 gm QID@0600,1130,1700,2200 PO 06/06/24 06:00 06/06/24 11:30 Atorvastatin Calcium (Lipitor) 40 mg HS PO 06/06/24 22:00 Norepinephrine Bitartrate 250 ml @ 3.75 mls/hr Q24H IV 06/06/24 01:00 06/06/24 01:15 Patient Own Medication 1 DAILY PO 06/06/24 10:00 06/06/24 10:05 Apixaban (Eliquis) 5 mg BID PO 06/06/24 10:00 06/06/24 10:04 Diagnostic Test (Pha) (Accu-Chek Comfort Curve T) 1 strip IQ4HR 06/06/24 12:00 06/06/24 12:20 Insulin Human Regular (InsuLIN R) IQ4HR SC 06/06/24 12:00 06/06/24 12:25 Dextrose 50 ml UD PRN IV Blood Sugar LESS THAN 60 06/06/24 11:00 Review of Systems Constitutional: No symptom reported Ears, Nose, & Throat: No symptom reported Eyes: No symptom reported Neurological: No symptoms reported Pulmonary/Respiratory: SOB Cardiovascular: Chest pain Gastrointestinal: No symptom reported Genitourinary: No symptom reported Musculoskeletal: No symptom reported Skin: No symptom reported Psychiatric: No symptom reported Endocrine: No symptom reported Hemotologic/Lymphatic: No symptom reported Vital Signs Vital Signs Date Time Temp Pulse Resp B/P (MAP) Pulse Ox O2 Delivery O2 Flow Rate FiO2 06/06/24 10:45 60 18 109/63 (78) 97 06/05/24 20:00 Room Air* 0 21 06/05/24 18:30 99.2 Physical Exam General Appearance: Cooperative. Well developed. Morbidly obese. In no acute distress Head Exam: Normal inspection Neck Exam: Normal inspection. Non-tender. Normal alignment Pulmonary/Respiratory: Chest tender. Clear bilateral breath sounds Cardiovascular/Chest: Regular rate and rhythm. S1, S2. Sinus bradycardia. No murmurs. No JVD. Peripheral Pulses: 2+ Radial (R). 2+ Radial (L). 2+ Pedal (R). 2+ Pedal (L) Abdominal Exam: Normal bowel sounds. Soft. Ankle Exam: Positive ankle edema, 2+ Lower extremities: Positive lower extremity edema, 2+ Neuro/Mental Status: A&O x3. Coherent but somewhat poor historian Thoughts/Psych: Normal thought pattern. Appropriate mood and affect. Inpatient Appearance: In no acute distress Skin Exam: Normal inspection. Normal color. Warm. Dry Labs/Diagnostic Data Labs Test 06/06/24 12:19 06/06/24 10:35 06/06/24 00:43 06/05/24 21:40 Range/Units POC Glucose 216 H 70-106 mg/dl White Blood Count 5.5 # 4.4-10.8 10^3/uL Red Blood Count 4.42 4.0-5.20 10^6/uL Hemoglobin 12.6 12.2-16.2 g/dL Hematocrit 38.1 36.0-46.0 % Mean Corpuscular Volume 86.2 80.0-100.0 fL Mean Corpuscular Hemoglobin 28.4 28.0-32.0 pg Mean Corpuscular Hemoglobin Concent 32.9 32.0-36.0 g/dL Red Cell Distribution Width 20.7 H 11.8-14.3 % Platelet Count 77 L 140-450 10^3/uL Mean Platelet Volume 10.1 6.9-10.8 fL Neutrophils (%) (Auto) 75.9 37.0-80.0 % Lymphocytes (%) (Auto) 10.8 10.0-50.0 % Monocytes (%) (Auto) 7.8 0.0-12.0 % Eosinophils (%) (Auto) 4.7 0.0-7.0 % Basophils (%) (Auto) 0.8 0.0-2.0 % Neutrophils # (Auto) 4.2 1.6-8.6 10 ^3/uL Lymphocytes # (Auto) 0.6 0.4-5.4 10 ^3/uL Monocytes # (Auto) 0.4 0-1.3 10 ^3/uL Eosinophils # (Auto) 0.3 0-0.8 10 ^3/uL Basophils # (Auto) 0 0-0.2 10 ^3/uL Nucleated Red Blood Cells 0.1 % Sodium Level 142 136-145 mmol/L Potassium Level 3.7 3.5-5.1 mmol/L Chloride Level 110 H 98-107 mmol/L Carbon Dioxide Level 26 20-31 mmol/L Anion Gap 6 5-15 Blood Urea Nitrogen 22 9-23 mg/dL Creatinine 1.43 H 0.550-1.02 mg/dL Glomerular Filtration Rate Calc 42 >90 mL/min BUN/Creatinine Ratio 15.4 10.0-20.0 Serum Glucose 234 H 74-106 mg/dL Hemoglobin A1c 8.5 H <5.7 % A1C Calcium Level 9.4 8.7-10.4 mg/dL Magnesium Level 2.0 1.6-2.6 mg/dL Total Bilirubin 0.3 0.2-1.0 mg/dL Aspartate Amino Transferase (AST) 42 H 13-40 U/L Alanine Aminotransferase (ALT) 24 7-40 U/L Alkaline Phosphatase 61 46-116 U/L Total Protein 6.8 5.7-8.2 g/dL Albumin 4.2 3.2-4.8 g/dL Vitamin B12 Level 334 211-911 pg/mL Thyroid Stimulating Hormone (TSH) 2.09 0.55-4.78 uIU/mL Plasma/Serum Blood Alcohol < 3.0 <10 mg/dL Urine Color Light-yellow Yellow Urine Clarity Clear Clear Urine pH 5.5 5.0-9.0 Urine Specific [place] 1.010 1.001-1.035 Urine Protein Negative Negative Urine Ketones Negative Negative Urine Blood 2+ H Negative /uL Urine Nitrite Negative Negative Urine Bilirubin Negative Negative Urine Urobilinogen Normal Negative mg/dL Urine Leukocyte Esterase Trace Negative /uL Urine RBC 1 0 - 4 /hpf Urine WBC 2 0 - 5 /hpf Urine Squamous Epithelial Cells Few <5 /hpf Urine Bacteria Few H None Seen /hpf Urine Glucose 2+ H Normal mg/dL Urine Opiates Screen Neg NEGATIVE Urine Fentanyl Screen Neg NEGATIVE Urine Barbiturates Screen Neg NEGATIVE Urine Phencyclidine Screen Neg NEGATIVE Urine Amphetamines Screen Neg NEGATIVE Urine Benzodiazepines Screen Neg NEGATIVE Urine Cocaine Screen Neg NEGATIVE Urine Cannabinoids Screen Neg NEGATIVE Prothrombin Time 11.3 9.3-11.8 sec Prothrombin Time INR 1.07 0.9-1.15 Activated Partial Thromboplast Time 26.8 24.5-34.5 SEC Troponin I High Sensitivity 5 </=34 ng/L C-Reactive Protein High Sensitivity 4.75 H <1.0 mg/dL Test 06/05/24 18:44 Range/Units Platelet Estimate Decreased Large Platelets Few Anisocytosis (manual) Slight Erythrocyte Sedimentation Rate 25 H 0-20 mm/hr B-Type Natriuretic Peptide 29.91 0-100 pg/mL Assessment Acute on chronic decompensated HFpEF, NYHA Class III Paroxysmal atrial fibrillation with slow ventricular rate, on Eliquis and amiodarone therapy Insulin-dependent diabetes mellitus Hypertension Dyslipidemia TOÑA on CKD stage 3 Hx of PE + HIV status Tobacco use Morbid obesity Plan/Recommendation (Dr. Guerrero) The patient presents with an acute exacerbation of CHF. We will continue further cardiac evaluation with a transthoracic echocardiogram. Initiate preload reduction at this time and afterload reduction with optimal blood pressures. In the meantime, continue low-dose antiarrhythmic and Eliquis therapy ([id number] VASc score: 5 points). Avoid any other AV larissa blocking agents given transient bradycardia. The patient can benefit from an outpatient event monitor to rule out tachy-ray arrhythmias and need for a possible permanent pacemaker implantation. Highly suspected for hypoxia induced bradycardia as worsening events mostly occur while the patient is asleep. She can benefit from an sleep study and/or CPAP HS per primary care team discretion. Monitor ECG changes closely and notify. Monitor ECG changes and notify. Thank you for allowing us to participate in this patient's care. Please call if you have any questions or concerns. This medical document was created using an electronic medical record system with voice recognition software and computerized dictation system. Although this document has been carefully reviewed, there might still be some phonetic and typographical errors. Occasional wrong-word or ``sound-alike substitutions may have occurred due to the inherent limitations of voice recognition software. These areas are purely typographical due to imperfections of the software programs and do not reflect any compromise in the patient's medical care. Please read the chart carefully and recognize, using context, where these substitutions have occurred. Plan discussed with: Patient, Other NYHA Physical activity limitations: Class3(Marked) ordinary (activity causes symtoms) Date of Service: Jun 06, 2024 Billing Provider: TRISH GUERRERO MD Cardiology Common Codes: [id number] INP/OBS CARE (High) ALBER RUBY RUBBER BLOCK LAYER Jun 06, 2024 13:09
[2024-06-06] MEDS: FUROSEMIDE 20 MG/2 ML VIAL IV ONE (13:40)
[2024-06-06] MEDS: AMIODARONE HCL 200 MG TAB PO ONE (13:41)
[2024-06-06 14:33] LABS: COVID19 ANTIGEN SOFIA FIA NEGATIVE (NEGATIVE); Rapid Influenza A Negative (Negative); Rapid Influenza B Negative (Negative)
--- NOTE | 2024-06-06 16:00 | DVHSR ---
APPROVED REPORT EXAM: Two-dimensional and M-mode echocardiogram with Doppler and color Doppler. Blood Pressure: 99/48 mmHg INDICATION bradycardia RISK FACTORS Obesity: Height: 5'4, Weight: 224 DIMENSIONS LVDd5.1 (3.8-5.7cm)LA (2D)3.8 (1.9-4.0cm)Aortic Root3.8 (2.0-3.7cm) LVDs3.5 (2.5-4.0cm)LA (MM) (1.9-4.0cm)Aortic Cusp Exc2.0 (1.5-2.0cm) EF (%) 60.0 (55-70%)Rt. Atrium2.6 (1.9-4.0cm)Asc. Aorta3.5 cm IVSd1.3 (0.7-1.1cm)RV (D) (1.8-2.4cm) PWd1.0 (0.7-1.1cm) Mitral Valve MitralMitral Stenosis E wave0.77m/sMV Mean GR.mmHg A wave0.93m/sMV Peak GR.mmHg E/A ratio0.82D MVAcm2 DECEL [id number] 1/2 Timems Aortic Valve Aortic ValveAortic Stenosis V11.43m/Amaury Mean GR.9mmHg V21.95m/Amaury Peak GR.15mmHg LVOT Diameter2.5 (1.8-2.4cm)Doppler AVA3.60cm2 Pulmonic Valve V21.37m/s Conclusion lvef 60% normal lv function, grade 1 diastolic dysfunction mild RV enlargement, normal function left atrium enlarged mild no severe valve abnormalities noted trivial pericardial effusion noted
[2024-06-06] MEDS: MORPHINE SULFATE INJ 2 MG/ml SYRG IV ONE (16:10)
--- NOTE | 2024-06-06 16:26 | DVHPNRES ---
Progress Note Date Seen: Jun 06, 2024 Resident Creating Document: SHEILA AVILEZ RESIDENT Medical Necessity Reason Pt with a Central, PICC or Fol: No Subjective Review of Systems Bhargavi Lezama is a 58-year-old female with a PMH of HIV, AFib, CHF, type 2 DM, CKD 3, HTN, PE, orthostatic hypotension presented to the ED with the chief complaints of dizziness and chest pain for past 2 days prior to admission. Per patient yesterday 3:00 a.m. she started having a midepigastric chest pain which was sharp and stabbing in character, 10/10 in intensity and constant in nature. Patient notes that she had similar pain symptoms in the past but workup did not reveal anything. Of note, patient sustained a fall few days ago and hurt her left hip. Patient is somnolent and nodded off multiple times during this interview. On review of systems she is complaining of fatigue, fever, dry cough, dyspnea, shortness of breath, palpitations and vomiting. PMH: HIV diagnosed 35 years ago, atrial fibrillation diagnosed 7 months ago, CHF, type 2 DM, CKD 3, HTN, PE, orthostatic hypotension PSH: Right ovarian cyst removal, hernia repair surgery, cholecystectomy Family history: Reviewed, noncontributory Social History: Lives alone. Smokes 5-6 cigarettes per day for 45 years, social drinker but denies other drug abuse Allergies: loperamide, nystatin, penicillins Patient seen and examined at the bedside. Patient reported improvement in her symptoms, reported no new complaints. Due to low blood pressure patient was on Levophed initially but discontinued after some time. EKG showed sinus bradycardia, no trops elevated.Patient is currently on 2 L oxygen NC Objective vital signs Vital Sign Date Time Temp Pulse Resp B/P (MAP) Pulse Ox O2 Delivery O2 Flow Rate FiO2 06/06/24 14:34 54 18 123/68 (86) 98 06/05/24 20:00 Room Air* 0 21 06/05/24 18:30 99.2 Total Intake and Output 06/05/24 06/05/24 06/06/24 15:00 23:00 07:00 Intake Total 37.5 ml Balance 37.5 ml medications Current Medications Medications Dose Ordered Sig/Uyen Route Start Time Stop Time Status Last Admin Dose Admin Sucralfate 1 gm QID@0600,1130,1700,2200 PO 06/06/24 06:00 06/06/24 11:30 1 GM Atorvastatin Calcium 40 mg HS PO 06/06/24 22:00 Patient Own Medication 1 DAILY PO 06/06/24 10:00 06/06/24 10:05 1 Apixaban 5 mg BID PO 06/06/24 10:00 06/06/24 10:04 5 MG Diagnostic Test (Pha) 1 strip IQ4HR 06/06/24 12:00 06/06/24 12:20 1 STRIP Insulin Human Regular IQ4HR SC 06/06/24 12:00 06/06/24 12:25 4 UNITS Dextrose 50 ml UD PRN IV 06/06/24 11:00 Amiodarone HCl 100 mg DAILY PO 06/07/24 10:00 Furosemide 20 mg BIDD IV 06/06/24 18:00 Examination Pt is lying on bed General Appearance: Alert, Oriented X3, Cooperative, Not in acute distress HEENT: Atraumatic, Mucous membranes moist/pink Respiratory: Clear to auscultation, Normal air movement, No added sounds Cardiovascular: Regular rate, Normal S1, Normal S2, No murmurs, bradycardia Abdominal: Active bowel sounds, Soft, no distention, no tenderness Extremities: No edema, Normal pulses, No tenderness/swelling Skin: Psoriatic patchy rash noted on left elbow, Stasis dermatitis Neuro: Normal speech, sensorimotor deficits none Psych/Mental Status: Mental status NL, Mood NL Nurse was there as sharperone during examination laboratory and microbiology Laboratory Tests 06/06/24 10:35 Test 06/06/24 10:35 Range/Units Serum Glucose 234 H 74-106 mg/dL Labs and/or images reviewed: Labs reviewed by me, Image(s) reviewed by me Problem List/Assessment/Plan Problem List/Assessment/Plan # Rule out ACS # ?? Cardiogenic shock # Afib secondary hypercoagulable state # orthostatic hypotension # ?? acute on chronic HFpEF - EKG showed sinus bradycardia - troponins x3 were negative - patient initially received IVF - patient initially on Levophed but discontinued - atropine for bradycardia, discontinued - currently on amiodarone,Eliquis for AFib, - echocardiogram showed LVEF 60% with grade 1 diastolic dysfunction - currently on Lasix 20 mg - monitor on telemetry unit - pending cardiology evaluation # status post mechanical fall without LOC - head CT no acute abnormalities - left hip x-ray no evidence of fracture # HIV - Resumed home medication triumeq (abacavir, dolutegravir, lamivudine) # controlled type 2 DM with HbA1c 8.5 -continuously monitored and Accu-Cheks # TOÑA on CKD 3 - monitor lab # H/O PE -Continue Eliquis 5mg Protonix for now Eliquis for VTE PPX Cardiac diet Reconciled home meds Goals of care discussed with the patient for more than 21 minutes: Full code status Case discussed with Dr. Contreras, patient and nurse Plan discussed with: Patient My Orders My Orders Orders - SHEILA AVILEZ Procedure Category Date Status Time Pt Request For Service PT 06/06/24 Logged 16:16 Sequential SANJU 06/06/24 In Process Compression Device 16:16 SHEILA AVILEZ RESIDENT Jun 06, 2024 16:26
[2024-06-06] MEDS: FUROSEMIDE 20 MG/2 ML VIAL IV SCH (17:25)
[2024-06-06 20:32] VITALS: RESP 17; O2SAT 100
[2024-06-06] MEDS: ATORVASTATIN 20 MG TAB PO SCH (22:42)
[2024-06-06 22:58] VITALS: BP 119/60; PULSE 64; RESP 18; TEMP 97.9; O2SAT 94
[2024-06-06] MEDS ORDERED: FAMO20TA10 PO (23:24)
[2024-06-06] MEDS ORDERED: CETI10TA2 PO (23:24)
[2024-06-06] MEDS ORDERED: POTA-36 PO (23:24)
[2024-06-06] MEDS ORDERED: CYCL-839 PO (23:24)
[2024-06-06] MEDS ORDERED: FENO145T27 PO (23:24)
[2024-06-06] MEDS ORDERED: DAPA1TAB4 PO (23:24)
[2024-06-06] MEDS ORDERED: METO25TA5 PO (23:24)
[2024-06-07] VITALS (8 sets, daily range): BP systolic 93–116; BP diastolic 44–74; PULSE 50–59; RESP 18–20; TEMP 97.4–98.3; O2SAT 95–100
[2024-06-07 05:00] LABS: Basophils # (auto) 0.1 10 ^3/uL (0-0.2); Eosinophils # (auto) 0.4 10 ^3/uL (0-0.8); Eosinophils % (auto) 7.4 % (0.0-7.0); Hematocrit 37.4 % (36.0-46.0); Hemoglobin 12.3 g/dL (12.2-16.2); Lymphocytes # (auto) 1.1 10 ^3/uL (0.4-5.4); Mean Corpuscular Hemoglobin 28.2 pg (28.0-32.0); Mean Corpuscular Hgb Conc. 32.9 g/dL (32.0-36.0); Mean Corpuscular Volume 85.8 fL (80.0-100.0); Monocytes # (auto) 0.9 10 ^3/uL (0-1.3); Monocytes % (auto) 15.4 % (0.0-12.0); Neutrophils # (auto) 3.3 10 ^3/uL (1.6-8.6); Neutrophils % (auto) 57.2 % (37.0-80.0); Nucleated Red Blood Cells % 0.2 %; Platelet Count (auto) 77 10^3/uL (140-450); Red Blood Cells 4.36 10^6/uL (4.0-5.20); Red Cell Distribution Width 20.4 % (11.8-14.3); White Blood Cell 5.7 10^3/uL (4.4-10.8)
[2024-06-07 05:31] LABS: Anion Gap 6 (5-15); Carbon Dioxide 27 mmol/L (20-31); Chloride 106 mmol/L (98-107); Potassium 3.6 mmol/L (3.5-5.1); Sodium 139 mmol/L (136-145)
[2024-06-07 05:37] LABS: BUN/Creatinine Ratio 13.2 (10.0-20.0); Blood Urea Nitrogen 22 mg/dL (9-23)
[2024-06-07 05:38] LABS: Glucose 161 mg/dL (74-106)
[2024-06-07 07:45] LABS: Anisocytosis Slight; Platelet Estimate Decreased
[2024-06-07] MEDS: AMIODARONE HCL 200 MG TAB PO SCH (11:32)
--- NOTE | 2024-06-07 20:25 | DVHPN2 ---
Changes from previous H/P or p: No Changes Eyes: No Pain, No Vision change, No Conjunctivae inflammation, No Eyelid inflammation, No Other, No Redness ENT: No Ear pain, No Ear discharge, No Nose pain; Nose discharge; No Nose congestion, No Mouth pain, No Mouth swelling, No Throat pain, No Throat swelling, No Other Cardiovascular: Chest Pain, Palpitations; No Orthopnea, No Paroxysmal Noc. Dyspnea, No Edema, No Lt Headedness, No Other Respiratory: Cough, Dry, Shortness of breath; No SOB with excertion; Wheezing; No Hemoptysis, No Pleuritic Pain, No Sputum, No Other Gastrointestinal: No Nausea; Vomiting, Abdominal Pain; No Diarrhea, No Constipation, No Melena, No Hematochezia, No Other Genitourinary: No Dysuria, No Frequency, No Incontinence, No Hematuria, No Retention, No Other Musculoskeletal: No other, No neck pain, No shoulder pain, No arm pain, No back pain, No hand pain, No leg pain, No foot pain Skin: No Rash, No Lesions, No Jaundice, No Bruising, No Other Objective Vitals Vital Signs Date Time Temp Pulse Resp B/P (MAP) Pulse Ox O2 Delivery O2 Flow Rate FiO2 06/07/24 17:43 114/71 06/07/24 16:58 98.3 53 18 95 98.3 06/07/24 08:00 Room Air* 0 21 Intake/Output Intake and Output 06/07/24 05:00 Intake Total 818.75 ml Balance 818.75 ml Intake Oral 800 ml IV Total 18.75 ml # Voids 1 General Appearance: Oriented X3 HEENT: Atraumatic Cardiovascular: Regular rate Medications Current Medications Medications Dose Ordered Sig/Uyen Route Start Time Stop Time Status Last Admin Dose Admin Sucralfate 1 gm QID@0600,1130,1700,2200 PO 06/06/24 06:00 06/07/24 17:43 1 GM Atorvastatin Calcium 40 mg HS PO 06/06/24 22:00 06/06/24 22:42 40 MG Patient Own Medication 1 DAILY PO 06/06/24 10:00 06/06/24 10:05 1 Apixaban 5 mg BID PO 06/06/24 10:00 06/07/24 11:21 5 MG Diagnostic Test (Pha) 1 strip IQ4HR 06/06/24 12:00 06/07/24 20:05 1 STRIP Insulin Human Regular IQ4HR SC 06/06/24 12:00 06/07/24 20:14 3 UNITS Dextrose 50 ml UD PRN IV 06/06/24 11:00 Amiodarone HCl 100 mg DAILY PO 06/07/24 10:00 06/07/24 11:32 100 MG Furosemide 20 mg BIDD IV 06/06/24 18:00 06/07/24 17:43 20 MG Laboratory Results Laboratory Tests 06/07/24 04:33 Chemistry Test 06/07/24 04:33 Calcium Level 10.0 mg/dL (8.7-10.4) Urinalysis Test 06/06/24 00:43 Urine Color Light-yellow (Yellow) Urine Clarity Clear (Clear) Urine pH 5.5 (5.0-9.0) Urine Specific [place] 1.010 (1.001-1.035) Urine Protein Negative (Negative) Urine Ketones Negative (Negative) Urine Blood 2+ /uL (Negative) H Urine Nitrite Negative (Negative) Urine Bilirubin Negative (Negative) Urine Urobilinogen Normal mg/dL (Negative) Urine Leukocyte Esterase Trace /uL (Negative) Urine RBC 1 /hpf (0 - 4) Urine WBC 2 /hpf (0 - 5) Urine Squamous Epithelial Cells Few /hpf (<5) Urine Bacteria Few /hpf (None Seen) H Urine Glucose 2+ mg/dL (Normal) H Assessment/Plan Assessment/Plan # Rule out ACS # ?? Cardiogenic shock # Afib secondary hypercoagulable state # orthostatic hypotension # ?? acute on chronic HFpEF - EKG showed sinus bradycardia - troponins x3 were negative - patient initially received IVF - patient initially on Levophed but discontinued - atropine for bradycardia, discontinued - currently on amiodarone,Eliquis for AFib, - echocardiogram showed LVEF 60% with grade 1 diastolic dysfunction - currently on Lasix 20 mg - monitor on telemetry unit - pending cardiology evaluation # status post mechanical fall without LOC - head CT no acute abnormalities - left hip x-ray no evidence of fracture # HIV - Resumed home medication triumeq (abacavir, dolutegravir, lamivudine) # controlled type 2 DM with HbA1c 8.5 -continuously monitored and Accu-Cheks # TOÑA on CKD 3 - monitor lab # H/O PE -Continue Eliquis 5mg Protonix for now Eliquis for VTE PPX Cardiac diet Reconciled home meds Plan discussed with: Patient Date of Service: Jun 07, 2024 Billing Provider: JOSE MACK MD Common Visit Codes: [id number] INP/OBS CARE(HIGH) JOSE MACK MD Jun 07, 2024 20:25
[2024-06-07] MEDS: ACETAMINOPHEN 325 MG TAB PO PRN (22:42)
[2024-06-07] MEDS: PREGABALIN 25 MG CAP PO ONE (22:43)
[2024-06-08] MEDS: PREGABALIN CAPSULE 75 MG CAP PO ONE (04:04)
[2024-06-08 05:08] VITALS: BP 115/54; PULSE 47; RESP 19; TEMP 97.8; O2SAT 97
[2024-06-08 08:00] VITALS: PULSE 44; PULSE 54; RESP 18
[2024-06-08 09:00] VITALS: BP 125/50; PULSE 54; RESP 18; TEMP 97.5; O2SAT 99
[2024-06-08] MEDS ORDERED: FERR325T20 PO (09:16)
[2024-06-08] MEDS ORDERED: ABAC1TAB3 (09:16)
[2024-06-08] MEDS ORDERED: SITA100T7 (09:16)
[2024-06-08 13:00] VITALS: BP 115/71; PULSE 63; RESP 18; TEMP 97.7; O2SAT 98
[2024-06-08 14:10] VITALS: BP 115/71; PULSE 63; RESP 18; TEMP 97.7; O2SAT 98
--- NOTE | 2024-06-09 09:32 | ECG ---
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
[2024-06-09 10:08] LABS: Hepatitis B Surface Antigen Negative (Negative); Hepatitis C Antibody Negative (Negative)
== END 2024-06-08 15:10 | disposition home or self-care (01) | DRG 194 ==
LOC: EDBD 18:18 → EDUNIT# 18:18 → ER 18:18 → TELE 23:37 → TELE-E-ADS 06-06 21:28
PROVIDERS: ADMIT Hospitalist; ATTEND Hospitalist
DX: I13.0 Hypertensive heart and chronic kidney disease with heart failure and stage 1 through stage 4 chronic kidney disease, or unspecified chronic kidney disease (principal); R57.0 Cardiogenic shock; D68.69 Other thrombophilia; I50.33 Acute on chronic diastolic (congestive) heart failure; N17.9 Acute kidney failure, unspecified; E11.22 Type 2 diabetes mellitus with diabetic chronic kidney disease; R04.0 Epistaxis; Z20.822 Contact with and (suspected) exposure to COVID-19; E78.5 Hyperlipidemia, unspecified; N18.30 Chronic kidney disease, stage 3 unspecified; F17.210 Nicotine dependence, cigarettes, uncomplicated; I95.1 Orthostatic hypotension; E66.01 Morbid (severe) obesity due to excess calories; I48.0 Paroxysmal atrial fibrillation; I25.10 Atherosclerotic heart disease of native coronary artery without angina pectoris; Z90.49 Acquired absence of other specified parts of digestive tract; Z79.01 Long term (current) use of anticoagulants; Z79.4 Long term (current) use of insulin; Z86.711 Personal history of pulmonary embolism; Z83.3 Family history of diabetes mellitus; Z68.26 Body mass index [BMI] 26.0-26.9, adult
CPT/HCPCS: 36415; 70450; 71046; 73502; 74176; 80048; 80053; 80307; 80320; 81001; 82607; 82962; 83036; 83735; 83880; 84443; 84484; 85025; 85610; 85652; 85730; 86141; 86803; 87340; 87426; 87804; 93005; 93306; 97110; 97116; 97163; 97530; 99291; G0378; J1815; J2470

== ENCOUNTER 2024-08-14 01:50 | Emergency (ER) | payer MEDICAID ==
[~2024-08-14] VITALS: Ht 162.6 cm; Wt 95.0 kg
[~2024-08-14 01:50] MED LIST changes: +ABAC1TAB3 PO; +AMIO200T13 PO; +CETI-120 PO; +CETI10TA2 PO; +DAPA1TAB4 PO; +DAPA5TAB2 PO; -DULO1CAP6 PO; +FERR325T20 PO; +INSU100I54 SC; +INSU1INJ19 SC; +METO25TA5 PO; +POTA-36 PO; +SITA100T7
[2024-08-14 02:30] VITALS: PULSE 58; RESP 14; O2SAT 96
--- NOTE | 2024-08-14 02:37 | ED.PDOC ---
History of Present Illness HPI Comments 59 year old female brought in by EMS presents to the ED with a chief complaint of LT arm pain s/p fall. Patient states she was in the shower when she slipped, landed on LT arm. Patient is also experiencing pain on side of tongue s/p bite, wounds on LT great toe and RT heel. EMS states patient's primary complain was hyperglycemia and chest pain. She denies any CP at time of assessment. PMHx HTN, DM, HLD, a-fib, CKF, HIV. Denies LOC, head injury, chest pain, shortness of breath, nausea, vomiting, diarrhea, headache, dizziness. No other symptoms or modifying factors present at this time. 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 SIGNAL REPAIRER 08/15/23 Reported Medications Ferrous Sulfate (Ferosul) 325 Mg Tab, 1 TAB PO DAILY for anemia 06/08/24 Kaipqzgu-Dvljqmuxydrv-Zmywkqzy (Triumeq 600-50-300 mg) 1 Tab Tab, 1 DAILY 06/08/24 Sitagliptin Phosphate (Januvia) 100 Mg Tab, 1 DAILY 06/08/24 Cetirizine Hcl (Kls Aller-Karla) 10 Mg Tab, 10 MG PO DAILY, TAB 06/06/24 Metoprolol Tartrate (Metoprolol Tartrate) 25 Mg Tab, 25 MG PO DAILY for 30 Days, MG 06/06/24 Dapagliflozin Propanediol (Farxiga) 10 Mg Tab, 5 MG PO DAILY, TAB 06/06/24 Fenofibrate (FENOFIBRATE) 145 Mg Tab, 1 TAB PO DAILY, #30 TAB 5 Refills 06/06/24 Potassium Chloride (POTASSIUM CHLORIDE CR) 10 Meq Tb, 1 TAB PO DAILY, #30 TAB 5 Refills 06/06/24 Cyclobenzaprine HCl (Cyclobenzaprine Hydrochlo) 10 Mg Tab, 1 TAB PO BIDPRN PRN 08/13/23 Famotidine (Famotidine) 20 Mg Tab, 1 TAB PO BIDPRN PRN 08/13/23 Furosemide (Furosemide) 40 Mg Tab, 1 TAB PO DAILY 08/13/23 Hydrocodone-Acetaminophen (Hydrocodone/Acetaminophen 5-325 mg) 1 Tab Tab, 2 TAB PO BID 08/13/23 Pregabalin (Pregabalin) 200 Mg Cap, 1 CAP PO TID 08/13/23 Lisinopril (Lisinopril) 2.5 Mg Tab, 1 TAB PO DAILY 08/13/23 Apixaban Base (ELIQUIS) 5 Mg Tab, 1 TAB PO BID 08/13/23 Aspirin (Aspirin) 81 Mg Chw, 1 TAB PO DAILY 08/13/23 Atorvastatin Calcium (ATORVASTATIN CALCIUM) 40 Mg Tab, 1 TAB PO DAILY 08/13/23 Information Source: Patient, Emergency Med Personnel Mode of Arrival: EMS Severity: Moderate Timing: Minutes Duration: Since onset Prehospital treatment: None Past Medical History PAST MEDICAL HISTORY: AFIB, CKF, DM, High Lipids, HIV, HTN Surgical History: Cholecystectomy, Hernia Repair CHEMICAL PROCESS PROJECT ENGINEER History: No Pertinent CHEMICAL PROCESS PROJECT ENGINEER History Family History Family History: Family hx of heart shanta Social History Smoker: Non-Smoker Alcohol: Occasionally Drugs: Marijuana Lives In: Home Constitutional: denies: chills, diaphoresis, fatigue, fever, malaise, sweats, weakness, others EENTM: denies: blurred vision, double vision, ear bleeding, ear discharge, ear drainage, ear pain, ear ringing, eye pain, eye redness, hearing loss, mouth pain, mouth swelling, nasal discharge, nose bleeding, nose congestion, nose pain, photophobia, tearing, throat pain, throat swelling, voice changes, others Respiratory: denies: cough, hemoptysis, orthopnea, SOB at rest, shortness of breath, SOB with excertion, stridor, wheezing, others Cardiovascular: denies: chest pain, dizzy spells, diaphoresis, Dyspnea on exertion, edema, irregular heart beat, left arm pain, lightheadedness, palpitations, PND, syncope, others Gastrointestinal: denies: abdomen distended, abdominal pain, blood streaked bowels, constipated, diarrhea, dysphagia, difficulty swallowing, hematemesis, melena, nausea, poor appetite, poor fluid intake, rectal bleeding, rectal pain, vomiting, others Genitourinary: denies: abnormal vagina bleeding, burning, dyspareunia, dysuria, flank pain, frequency, hematuria, incontinence, pain, , vagina discharge, urgency, others Neurological: denies: dizziness, fainting, headache, left sided numbness, left sided weakness, numbness, paresthesia, pre-existing deficit, right sided numbness, right sided weakness, seizure, speech problems, tingling, tremors, weakness, others Musculoskeletal: reports: others (LT arm pain); denies: back pain, gout, joint pain, joint swelling, muscle pain, muscle stiffness, neck pain Integumetry: reports: wounds (LT toe, RT heel); denies: bruises, change in color, change in hair/nails, dryness, laceration, lesions, lumps, rash, others Allergic/Immunocompromised: denies: Difficulty Healing, Frequent Infections, Hives, Itching, others Hematologic/Lymphatic: denies: anemia, blood clots, easy bleeding, easy bruising, swollen glands, others Endocrine: denies: excessive hunger, excessive sweating, excessive thirst, excessive urination, flushing, intolerance to cold, intolerance to heat, unexplained weight gain, unexplained weight loss, others Psychiatric: denies: anxiety, bipolar disorder, depression, hopeless, panic disorder, schizophrenia, sleepless, suicidal, others All Other Systems: Reviewed and Negative Physical Exam General Appearance: No Apparent Distress, Normal HEENT: Normal ENT Inspection, Pharynx Normal, TMs Normal Neck: Full Range of Motion, Non-Tender, Normal, Normal Inspection Respiratory: Chest Non-Tender, Lungs Clear, No Accessory Muscle Use, No Respiratory Distress, Normal Breath Sounds Cardiovascular: No Edema, No JVD, No Murmur, No Gallop, Normal Peripheral Pulses, Regular Rate/Rhythm Breast Exam: Deferred Gastrointestinal: No Organomegaly, Non Tender, No Pulsatile Mass, Normal Bowel Sounds, Soft Genitalia: Deferred Pelvic: Deferred Rectal: Deferred Extremities: No calf tenderness, Normal capillary refill, Normal inspection, Normal range of motion, Non-tender, No pedal edema Musculoskeletal : Apperance: Normal Neurologic: Alert, platform loader II-XII nml as Tested, No Motor Deficits, Normal Affect, Normal Mood, No Sensory Deficits Cerebellar Function: Normal Reflexes: Normal Skin: Dry, Normal Color, Warm Lymphatic: No Adenopathy Was a procedure done? Was a procedure done?: No Differential Dx Considerations may include: ACS, uncontrolled diabetes, CVA, cellulitis X-Ray, Labs, Meds, VS Vital Signs Date Time Temp Pulse Resp B/P (MAP) Pulse Ox O2 Delivery O2 Flow Rate FiO2 08/14/24 02:30 97.8 58 14 122/68 (86) 96 97.8 08/14/24 02:30 58 14 96 Room Air* 0 21 08/14/24 02:02 56 08/14/24 01:50 98.1 60 18 155/109 (124) 100 98.1 Lab Test 08/14/24 03:41 08/14/24 02:46 Range/Units Troponin I High Sensitivity Pending 4 </=34 ng/L White Blood Count 5.5 4.4-10.8 10^3/uL Red Blood Count 4.29 4.0-5.20 10^6/uL Hemoglobin 11.5 L 12.2-16.2 g/dL Hematocrit 35.1 L 36.0-46.0 % Mean Corpuscular Volume 81.8 80.0-100.0 fL Mean Corpuscular Hemoglobin 26.7 L 28.0-32.0 pg Mean Corpuscular Hemoglobin Concent 32.7 32.0-36.0 g/dL Red Cell Distribution Width 17.3 H 11.8-14.3 % Platelet Count 114 L 140-450 10^3/uL Mean Platelet Volume 9.0 6.9-10.8 fL Neutrophils (%) (Auto) 64.0 37.0-80.0 % Lymphocytes (%) (Auto) 19.6 10.0-50.0 % Monocytes (%) (Auto) 10.5 0.0-12.0 % Eosinophils (%) (Auto) 4.6 0.0-7.0 % Basophils (%) (Auto) 1.3 0.0-2.0 % Neutrophils # (Auto) 3.5 1.6-8.6 10 ^3/uL Lymphocytes # (Auto) 1.1 0.4-5.4 10 ^3/uL Monocytes # (Auto) 0.6 0-1.3 10 ^3/uL Eosinophils # (Auto) 0.3 0-0.8 10 ^3/uL Basophils # (Auto) 0.1 0-0.2 10 ^3/uL Nucleated Red Blood Cells 0.1 % Sodium Level 139 136-145 mmol/L Potassium Level 3.5 3.5-5.1 mmol/L Chloride Level 110 H 98-107 mmol/L Carbon Dioxide Level 22 20-31 mmol/L Anion Gap 7 5-15 Blood Urea Nitrogen 12 9-23 mg/dL Creatinine 1.31 H 0.550-1.02 mg/dL Glomerular Filtration Rate Calc 47 >90 mL/min BUN/Creatinine Ratio 9.2 L 10.0-20.0 Serum Glucose 329 H 74-106 mg/dL Calcium Level 9.2 8.7-10.4 mg/dL Total Bilirubin 0.2 0.2-1.0 mg/dL Aspartate Amino Transferase (AST) 26 13-40 U/L Alanine Aminotransferase (ALT) 21 7-40 U/L Alkaline Phosphatase 69 46-116 U/L B-Type Natriuretic Peptide 38.21 0-100 pg/mL Total Protein 7.0 5.7-8.2 g/dL Albumin 4.2 3.2-4.8 g/dL Current Medications Medications (Trade) Dose Ordered Sig/Uyen Route Start Time Stop Time Status Last Admin Ketorolac Tromethamine (Toradol Injection) 30 mg ONCE ONCE IV 08/14/24 03:45 08/14/24 03:52 DC 08/14/24 04:00 Time of 1ST Reevaluation: 02:46 Reevaluation 1ST: Unchanged Patient Education/Counseling: Diagnosis, Treatment, Prognosis Family Education/Counseling: No Family Present Departure 1 Departure Time of Disposition: 04:04 (Patient presented with chest pain that was concerning for possible STEMI, ACS, PE, Pneumonia, Muscle Strain, COPD, Dissection. Data: 1. I ordered and reviewed the result of at least 3 labs including a CBC, BMP, and Troponin. 2. I independently interpreted the following tests: EKG which shows sinus arrhythmia and Chest X-ray which shows benign chest.Risk:This patient has a high risk of morbidity due to further diagnostic testing or treatment and may suffer from an acute cardiac or respiratory disorder. Workup reveals concern for ACS, uncontrolled diabetes, cellulitis of the lower extremities and patient should be admitted for further workup and possible expert consultation. ) Impression: Primary Impression: Acute chest pain Additional Impressions: Uncontrolled diabetes mellitus Qualified Codes: E11.65 - Type 2 diabetes mellitus with hyperglycemia Foot ulcer Qualified Codes: L97.511 - Non-pressure chronic ulcer of other part of right foot limited to breakdown of skin; L97.521 - Non-pressure chronic ulcer of other part of left foot limited to breakdown of skin Disposition: 09 ADMITTED INPATIENT Admit to: Med Surg Condition: Serious Critical Care Note Critical Care Time?: Yes Critical care comment: Acute chest pain Authorized and Performed by: Ashwin Griffiths MD Total critical care time: Approximately 38 minutes Due to a high probability of clinically significant, life threatening deterioration, the patient required my highest level of preparedness to intervene emergently and I personally spent this critical care time directly and personally managing the patient. This critical care time included obtaining a history; examining the patient; pulse oximetry; ordering and review of studies; arranging urgent treatment with development of a management plan; evaluation of patient's response to treatment; frequent reassessment; and, discussions with other providers. This critical care time was performed to assess and manage the high probability of imminent, life-threatening deterioration that could result in multi-organ failure. It was exclusive of separately billable procedures and treating other patients and teaching time. Please see my other sections and the rest of the note for further information on patient assessment and treatment. Stability Stability form required: No I personally scribed for ASHWIN GRIFFITHS MD ([email or web address]) on 08/14/24 at 02:37. Electronically submitted by Celeste Zimmerman ([email or web address]). ASHWIN GRIFFITHS MD Aug 14, 2024 02:37
[2024-08-14 02:57] LABS: Hemoglobin 11.5 g/dL (12.2-16.2); Neutrophils # (auto) 3.5 10 ^3/uL (1.6-8.6); Nucleated Red Blood Cells % 0.1 %; Red Cell Distribution Width 17.3 % (11.8-14.3); White Blood Cell 5.5 10^3/uL (4.4-10.8)
[2024-08-14 02:59] LABS: Basophils # (auto) 0.1 10 ^3/uL (0-0.2); Basophils % (auto) 1.3 % (0.0-2.0); Eosinophils # (auto) 0.3 10 ^3/uL (0-0.8); Eosinophils % (auto) 4.6 % (0.0-7.0); Hematocrit 35.1 % (36.0-46.0); Lymphocytes # (auto) 1.1 10 ^3/uL (0.4-5.4); Lymphocytes % (auto) 19.6 % (10.0-50.0); Mean Corpuscular Hemoglobin 26.7 pg (28.0-32.0); Mean Corpuscular Hgb Conc. 32.7 g/dL (32.0-36.0); Mean Corpuscular Volume 81.8 fL (80.0-100.0); Monocytes # (auto) 0.6 10 ^3/uL (0-1.3); Monocytes % (auto) 10.5 % (0.0-12.0); Platelet Count (auto) 114 10^3/uL (140-450); Red Blood Cells 4.29 10^6/uL (4.0-5.20)
[2024-08-14 03:14] LABS: Alanine Aminotransferase 21 U/L (7-40); Albumin 4.2 g/dL (3.2-4.8); Alkaline Phosphatase 69 U/L (46-116); Anion Gap 7 (5-15); Aspartate Aminotransferase 26 U/L (13-40); BUN/Creatinine Ratio 9.2 (10.0-20.0); Blood Urea Nitrogen 12 mg/dL (9-23); Calcium 9.2 mg/dL (8.7-10.4); Carbon Dioxide 22 mmol/L (20-31); Sodium 139 mmol/L (136-145)
--- NOTE | 2024-08-14 03:24 | DVH ---
CLINICAL INDICATION: foot sores TECHNIQUE: Left XY L FOOT 2 VIEW XRAY Comparison: None FINDINGS/IMPRESSION: : There is no evidence of acute fracture or dislocation. Plantar and retrocalcaneal enthesopathy and mi ld hallux valgus. Soft tissues are unremarkable.
--- NOTE | 2024-08-14 03:24 | DVH ---
CLINICAL INDICATION: foot sores TECHNIQUE: Right XY R FOOT 2 VIEW XRAY Comparison: None FINDINGS/IMPRESSION: : There is no evidence of acute fracture or dislocation. Retrocalcaneal enthesopathy and mild hallux va lgus. Soft tissues are unremarkable.
--- NOTE | 2024-08-14 03:26 | DVH ---
CHEST RADIOGRAPH Indication: foot sores, weakness Technique: Single frontal view of the chest was obtained Comparison: XY CHEST PORTABLE on DOS: 08/21/23, XY CHEST PORTABLE on DOS: 08/13/23 IMPRESSION: Heart appears prominent in size. The lungs appear clear without focal airspace opacity, effusion, or pneumothorax
--- NOTE | 2024-08-14 03:27 | DVH ---
EXAM: XY L SHOULDER 2+ VIEW XRAY HISTORY: fall COMPARISON: None TECHNIQUE: 2 views of the left shoulder were performed. FINDINGS: No acute fracture or dislocation are identified about the left shoulder. No significant degenerative changes or loss of subacromial space. IMPRESSION: 1. Unremarkable radiographs of the left shoulder.
[2024-08-14 03:29] LABS: Bilirubin, Total 0.2 mg/dL (0.2-1.0); Chloride 110 mmol/L (98-107); Glucose 329 mg/dL (74-106); Potassium 3.5 mmol/L (3.5-5.1)
[2024-08-14] MEDS: KETOROLAC TROMETH 30 MG/ML 1ML VIAL IV ONE (04:00)
[2024-08-14 07:46] VITALS: BP 100/54; PULSE 50; RESP 12; TEMP 98; O2SAT 95
--- NOTE | 2024-08-14 09:13 | ECG ---
[facility] Test Date: 2024-08-14 Test Time: 02:02:43 Pat Name: FELICE COLE Department: ED Room: Gender: F Blueprint Clerk: ER : [id number] Requested By: ASHWIN WARD Order Number: [id number] Reading MD: Stephen Gomez Measurements Intervals [place] Rate: 56 P: 72 NE: 158 QRS: 136 QRSD: 107 T: 50 QT: 484 QTc: 468 Interpretive Statements Sinus rhythm Left posterior fascicular block Abnormal R-wave progression, late transition Baseline wander in lead(s) V6 Electronically Signed On 08-14-2024 14:13:06 PDT by Stephen Gomez Please click the below link to view image of tracing.
== END 2024-08-14 07:47 | disposition left against medical advice (07) ==
LOC: EDBD 01:50 → ER 01:50
DX: E11.65 Type 2 diabetes mellitus with hyperglycemia (principal); E11.621 Type 2 diabetes mellitus with foot ulcer; R07.9 Chest pain, unspecified; M79.602 Pain in left arm; I48.91 Unspecified atrial fibrillation; I10 Essential (primary) hypertension; E78.5 Hyperlipidemia, unspecified; F12.90 Cannabis use, unspecified, uncomplicated; Z79.01 Long term (current) use of anticoagulants; Z79.624 Long term (current) use of inhibitors of nucleotide synthesis; Z79.82 Long term (current) use of aspirin; Z79.84 Long term (current) use of oral hypoglycemic drugs; Z79.899 Other long term (current) drug therapy; Z90.49 Acquired absence of other specified parts of digestive tract; Z98.890 Other specified postprocedural states; Z88.0 Allergy status to penicillin; Z88.8 Allergy status to other drugs, medicaments and biological substances; W18.2XXA Fall in (into) shower or empty bathtub, initial encounter; Y93.E1 Activity, personal bathing and showering; Y92.89 Other specified places as the place of occurrence of the external cause; Y99.8 Other external cause status
CPT/HCPCS: 36415; 71045; 73030; 73620; 80053; 82947; 83880; 84484; 85025; 93005; 96374; 99285; J1885; 82962

== ENCOUNTER 2024-08-15 14:33 | Inpatient (IN) | payer MEDICAID ==
[~2024-08-15] VITALS: Ht 162.6 cm; Wt 101.1 kg
[2024-08-15] MEDS: cloNIDine HCL 0.1 MG TAB PO ONE (15:45)
[2024-08-15] MEDS: SODIUM CHLORIDE 0.9% 1,000 ML IV ONE (15:45)
--- NOTE | 2024-08-15 16:01 | ED.PDOC ---
History of Present Illness HPI Comments 59Y F with PMHx DM, HTN, HLD, CKF, Afib, HIV, and neuropathy presents to ED for chief complaint feet wounds. Pt presents with left great toe and right heel wounds. Additional symptom includes SOB. Pt denies headache and chest pain. Pt was seen at [facility] ER yesterday, 08/15/2024, and was meant to be admitted but pt stated she was unable to stay. No other symptoms/history reported. 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 08/15/23 Reported Medications Ferrous Sulfate (Ferosul) 325 Mg Tab, 1 TAB PO DAILY for anemia 06/08/24 Cgmkwsbr-Xwglziubphcj-Evcpbusk (Triumeq 600-50-300 mg) 1 Tab Tab, 1 DAILY 06/08/24 Sitagliptin Phosphate (Januvia) 100 Mg Tab, 1 DAILY 06/08/24 Cetirizine Hcl (Kls Aller-Karla) 10 Mg Tab, 10 MG PO DAILY, TAB 06/06/24 Metoprolol Tartrate (Metoprolol Tartrate) 25 Mg Tab, 25 MG PO DAILY for 30 Days, MG 06/06/24 Dapagliflozin Propanediol (Farxiga) 10 Mg Tab, 5 MG PO DAILY, TAB 06/06/24 Fenofibrate (FENOFIBRATE) 145 Mg Tab, 1 TAB PO DAILY, #30 TAB 5 Refills 06/06/24 Potassium Chloride (POTASSIUM CHLORIDE CR) 10 Meq Tb, 1 TAB PO DAILY, #30 TAB 5 Refills 06/06/24 Cyclobenzaprine HCl (Cyclobenzaprine Hydrochlo) 10 Mg Tab, 1 TAB PO BIDPRN PRN 08/13/23 Famotidine (Famotidine) 20 Mg Tab, 1 TAB PO BIDPRN PRN 08/13/23 Furosemide (Furosemide) 40 Mg Tab, 1 TAB PO DAILY 08/13/23 Hydrocodone-Acetaminophen (Hydrocodone/Acetaminophen 5-325 mg) 1 Tab Tab, 2 TAB PO BID 08/13/23 Pregabalin (Pregabalin) 200 Mg Cap, 1 CAP PO TID 08/13/23 Lisinopril (Lisinopril) 2.5 Mg Tab, 1 TAB PO DAILY 08/13/23 Apixaban Base (ELIQUIS) 5 Mg Tab, 1 TAB PO BID 08/13/23 Aspirin (Aspirin) 81 Mg Chw, 1 TAB PO DAILY 08/13/23 Atorvastatin Calcium (ATORVASTATIN CALCIUM) 40 Mg Tab, 1 TAB PO DAILY 08/13/23 Information Source: Patient Mode of Arrival: Ambulatory Severity: Mild Timing: Days Duration: Since onset Prehospital treatment: None Past Medical History PAST MEDICAL HISTORY: AFIB, CKF, DM, High Lipids, HIV, HTN Surgical History: Cholecystectomy, Hernia Repair OUTSOLE CASER History: No Pertinent OUTSOLE CASER History Family History Family History: Family hx of heart shanta Social History Smoker: Non-Smoker Alcohol: Occasionally Drugs: Marijuana Lives In: Home Constitutional: denies: chills, diaphoresis, fatigue, fever, malaise, sweats, weakness, others EENTM: denies: blurred vision, double vision, ear bleeding, ear discharge, ear drainage, ear pain, ear ringing, eye pain, eye redness, hearing loss, mouth pain, mouth swelling, nasal discharge, nose bleeding, nose congestion, nose pain , photophobia, tearing, throat pain, throat swelling, voice changes, others Respiratory: reports: shortness of breath; denies: cough, hemoptysis, orthopnea, SOB at rest, SOB with excertion, stridor, wheezing, others Cardiovascular: denies: chest pain, dizzy spells, diaphoresis, Dyspnea on exertion, edema, irregular heart beat, left arm pain, lightheadedness, palpitations, PND, syncope, others Gastrointestinal: denies: abdomen distended, abdominal pain, blood streaked bowels, constipated, diarrhea, dysphagia, difficulty swallowing, hematemesis, melena, nausea, poor appetite, poor fluid intake, rectal bleeding, rectal pain, vomiting, others Genitourinary: denies: abnormal vagina bleeding, burning, dyspareunia, dysuria, flank pain, frequency, hematuria, incontinence, pain, , vagina discharge, urgency, others Neurological: denies: dizziness, fainting, headache, left sided numbness, left sided weakness, numbness, paresthesia, pre-existing deficit, right sided numbness, right sided weakness, seizure, speech problems, tingling, tremors, weakness, others Musculoskeletal: denies: back pain, gout, joint pain, joint swelling, muscle pain, muscle stiffness, neck pain, others Integumetry: reports: wounds (lt great toe, rt heel); denies: bruises, change in color, change in hair/nails, dryness, laceration, lesions, lumps, rash, others Allergic/Immunocompromised: denies: Difficulty Healing, Frequent Infections, Hives, Itching, others Hematologic/Lymphatic: denies: anemia, blood clots, easy bleeding, easy bruising, swollen glands, others Endocrine: denies: excessive hunger, excessive sweating, excessive thirst, excessive urination, flushing, intolerance to cold, intolerance to heat, unexplained weight gain, unexplained weight loss, others Psychiatric: denies: anxiety, bipolar disorder, depression, hopeless, panic disorder, schizophrenia, sleepless, suicidal, others All Other Systems: Reviewed and Negative Physical Exam General Appearance: No Apparent Distress, Normal HEENT: Normal ENT Inspection, Pharynx Normal, TMs Normal Neck: Full Range of Motion, Non-Tender, Normal, Normal Inspection Respiratory: Chest Non-Tender, Lungs Clear, No Accessory Muscle Use, No Respiratory Distress, Normal Breath Sounds Cardiovascular: No Edema, No Murmur, No Gallop, Normal Peripheral Pulses, Regular Rate/Rhythm Breast Exam: Deferred Gastrointestinal: No Organomegaly, Non Tender, Normal Bowel Sounds, Soft Genitalia: Deferred Pelvic: Deferred Rectal: Deferred Extremities: No calf tenderness, Normal capillary refill, Normal inspection, Normal range of motion, Non-tender, No pedal edema Musculoskeletal : Apperance: Normal Neurologic: Alert, line builder II-XII nml as Tested, No Motor Deficits, Normal Affect, Normal Mood, No Sensory Deficits Cerebellar Function: NOT DONE Reflexes: NOT DONE Skin: Dry, Warm, Wounds (lt great toe, rt heel) Lymphatic: NOT DONE Was a procedure done? Was a procedure done?: No EKG EKG : Pulse Rate (adult): 56 Hypertrophy: LAE Comments sinus rhythm probable left atrial enlargement left posterior fascicular block Differential Dx Considerations may include: cellulitis X-Ray, Labs, Meds, VS Vital Signs Date Time Temp Pulse Resp B/P (MAP) Pulse Ox O2 Delivery O2 Flow Rate FiO2 08/15/24 16:10 60 16 108/61 (77) 98 08/15/24 16:08 97.7 57 16 109/57 (74) 98 97.7 08/15/24 16:08 57 16 98 Room Air* 0 21 08/15/24 16:02 56 08/15/24 15:45 109/57 08/15/24 15:20 97.3 60 20 163/141 (148) 100 97.3 188/155 (166) Lab Test 08/15/24 15:53 Range/Units White Blood Count 6.7 4.4-10.8 10^3/uL Red Blood Count 4.72 4.0-5.20 10^6/uL Hemoglobin 12.1 L 12.2-16.2 g/dL Hematocrit 37.9 36.0-46.0 % Mean Corpuscular Volume 80.4 80.0-100.0 fL Mean Corpuscular Hemoglobin 25.8 L 28.0-32.0 pg Mean Corpuscular Hemoglobin Concent 32.0 32.0-36.0 g/dL Red Cell Distribution Width 17.5 H 11.8-14.3 % Platelet Count 134 L 140-450 10^3/uL Mean Platelet Volume 9.4 6.9-10.8 fL Neutrophils (%) (Auto) 72.0 37.0-80.0 % Lymphocytes (%) (Auto) 15.5 10.0-50.0 % Monocytes (%) (Auto) 7.5 0.0-12.0 % Eosinophils (%) (Auto) 3.5 0.0-7.0 % Basophils (%) (Auto) 1.5 0.0-2.0 % Neutrophils # (Auto) 4.8 1.6-8.6 10 ^3/uL Lymphocytes # (Auto) 1.0 0.4-5.4 10 ^3/uL Monocytes # (Auto) 0.5 0-1.3 10 ^3/uL Eosinophils # (Auto) 0.2 0-0.8 10 ^3/uL Basophils # (Auto) 0.1 0-0.2 10 ^3/uL Nucleated Red Blood Cells 0.2 % D-Dimer, Quantitative 0.82 H 0.0-0.49 mg/L FEU Sodium Level 142 136-145 mmol/L Potassium Level 4.1 3.5-5.1 mmol/L Chloride Level 107 98-107 mmol/L Carbon Dioxide Level 27 20-31 mmol/L Anion Gap 8 5-15 Blood Urea Nitrogen 16 9-23 mg/dL Creatinine 1.57 H 0.550-1.02 mg/dL Glomerular Filtration Rate Calc 38 >90 mL/min BUN/Creatinine Ratio 10.2 10.0-20.0 Serum Glucose 134 H 74-106 mg/dL Lactic Acid Level 1.6 0.4-2.0 mmol/L Calcium Level 9.9 8.7-10.4 mg/dL Total Bilirubin 0.3 0.2-1.0 mg/dL Aspartate Amino Transferase (AST) 39 13-40 U/L Alanine Aminotransferase (ALT) 31 7-40 U/L Alkaline Phosphatase 76 46-116 U/L Troponin I High Sensitivity 3 L </=34 ng/L Total Protein 7.3 5.7-8.2 g/dL Albumin 4.5 3.2-4.8 g/dL X-Ray, Labs, Meds, VS Comment This 59-year-old female here for unclear reasons. She states she was going to be admitted yesterday secondary to infection of her toes. However, she does not have any severe lesions. Review of the previous charges there was a concern for ACS. Today, however, there is a he was seen for acute renal failure and elevated D-dimer. I will admit the patient for further workup management of her possible PE and acute renal failure.. Time of 1ST Reevaluation: 16:05 Reevaluation 1ST: Unchanged Patient Education/Counseling: Diagnosis, Treatment Family Education/Counseling: No Family Present Departure 1 Departure Time of Disposition: 17:14 Impression: Primary Impression: Acute chest pain Additional Impressions: Foot ulcer Acute coronary syndrome Uncontrolled diabetes mellitus Renal failure Elevated d-dimer Disposition: ADMITTED INPATIENT Admit to: [facility] Condition: Serious Critical Care Note Critical Care Time?: No Stability Stability form required: No Heart Score Heart Score: Heart Score Response (Comments) Value History N/A 0 EKG N/A 0 Age N/A 0 Risk Factors N/A 0 Troponin N/A 0 Total 0 I personally scribed for ALANNAH WARNER MD ([email or web address]) on 08/15/24 at 16:01. Electronically submitted by Lety Miguel ([email or web address]). I personally scribed for ALANNAH WARNER MD ([email or web address]) on 08/15/24 at 16:02. Electronically submitted by Lety Miguel ([email or web address]). ALANNAH WARNER MD Aug 15, 2024 16:01
[2024-08-15 16:08] VITALS: PULSE 57; RESP 16; O2SAT 98
[2024-08-15 16:37] LABS: Basophils # (auto) 0.1 10 ^3/uL (0-0.2); Basophils % (auto) 1.5 % (0.0-2.0); Eosinophils # (auto) 0.2 10 ^3/uL (0-0.8); Eosinophils % (auto) 3.5 % (0.0-7.0); Hematocrit 37.9 % (36.0-46.0); Hemoglobin 12.1 g/dL (12.2-16.2); Lymphocytes % (auto) 15.5 % (10.0-50.0); Mean Corpuscular Hemoglobin 25.8 pg (28.0-32.0); Mean Corpuscular Volume 80.4 fL (80.0-100.0); Monocytes # (auto) 0.5 10 ^3/uL (0-1.3); Monocytes % (auto) 7.5 % (0.0-12.0); Neutrophils # (auto) 4.8 10 ^3/uL (1.6-8.6); Nucleated Red Blood Cells % 0.2 %; Platelet Count (auto) 134 10^3/uL (140-450); Red Blood Cells 4.72 10^6/uL (4.0-5.20); Red Cell Distribution Width 17.5 % (11.8-14.3); White Blood Cell 6.7 10^3/uL (4.4-10.8)
[2024-08-15 16:58] LABS: Alanine Aminotransferase 31 U/L (7-40); Albumin 4.5 g/dL (3.2-4.8); Alkaline Phosphatase 76 U/L (46-116); Anion Gap 8 (5-15); Aspartate Aminotransferase 39 U/L (13-40); BUN/Creatinine Ratio 10.2 (10.0-20.0); Blood Urea Nitrogen 16 mg/dL (9-23); Calcium 9.9 mg/dL (8.7-10.4); Carbon Dioxide 27 mmol/L (20-31); Potassium 4.1 mmol/L (3.5-5.1); Sodium 142 mmol/L (136-145); Total Protein 7.3 g/dL (5.7-8.2)
[2024-08-15 17:02] LABS: Bilirubin, Total 0.3 mg/dL (0.2-1.0); Chloride 107 mmol/L (98-107); Glucose 134 mg/dL (74-106)
[2024-08-15 18:38] LABS: Urine Bacteria None Seen /hpf (None Seen)
[2024-08-15 18:53] LABS: Urine Blood 2+ /uL (Negative); Urine Clarity Clear (Clear); Urine Color Light-Yellow (Yellow); Urine Protein, UAD Negative (Negative); Urine Specific Gravity 1.012 (1.001-1.035); Urine Squamous Epithelial Cell None Seen /hpf (<5); Urine Urobilinogen Normal (Negative); Urine WBC < 1 /HPF (0-5); Urine pH 5.5 (5.0-9.0)
[2024-08-15] MEDS: HYDROcodone-ACET 5/325MG TAB PO ONE (19:25)
[2024-08-15] MEDS: DEXTROSE (50%) 50ML SYRG IV ONE (23:45)
[2024-08-15] MEDS ORDERED: ACETAMINOPHEN 325 MG TAB PO PRN (23:45)
[2024-08-15] MEDS: InsuLIN REG 1unit/0.01ml Soln (100units/ml) SC ONE (23:45)
[2024-08-15] MEDS: ACCU-CHEK COMFORT CURVE STRIP VI ONE (23:45)
--- NOTE | 2024-08-15 23:45 | DVHHPRES ---
History of Present Illness Resident Creating Document: MARA DACOSTA RESIDENT Reason for Visit: BILATERAL FOOT PAIN AND ULCER History of Present Illness This is a 59-year-old female with significant past medical history which include DM, HTN, HLD, CDK 3 Afib, HIV, and neuropathy presented to the ED with bilateral foot wound. According to the patient, over the past 3 weeks, she has noticed a wound on her left big toe that has been causing her an excruciating whenever she wears her shoes or walks on it. She also has another wound on the right right heel. Patient mentioned that she is sort of homeless. She lives in a hotel where she need to change location every 21 days. Because of this living arrangement, she has not been compliant with her medications. Patient is diabetic does no know her A1c. Patient has subjective fever and chills. She denies chest pain, nausea, vomiting or shortness of breaths. Patient also mentioned that on Sunday ( 08/12/2024) after taking her bath, she accidentally fell on the floor landing on her left side. But she did not hit her head. She complained of left should pain. PMHx:DM, HTN, HLD, CDK 3 Afib, HIV, and neuropathy Past surgical history: Patient had hernia repair and also cholecystectomy Family history noncontributory to her current state Social history: patient is disable, smokes drinks occasionally lives in a hotel Medications : Farxiga, lisinopril,Triumeq ( vexfzbod-Vgjfjtuzptle-Yzsaoqgkus), aspirin Review of Systems Review of Systems Constitutional: Denies fever no chills no feeling of malaise HEENT: Denies headache, ear pain, ear discharges, conjunctivitis, nasal discharge throat pain Cardiovascular: Denies chest pain, palpitation, orthopnea, PND, or pedal edema Respiratory: Denies shortness of breath, cough, sputum production, hemoptysis, GI: Denies abdominal pain, nausea, vomiting, diarrhea, hematemesis, hematochezia, : Denies frequency, urgency, hematuria, Endocrine: Denies unintentional weight gain or weight loss, feeling of hot flashes, Zhao: Denies easy bruising, bleeding disorders, epistaxis Musculoskeletal: Denies joint pains, muscle aches; bilateral leg pains, left sided shoulder pain Psych: No evidence of depression, clayton, suicidal ideation Constitutional: Yes: Fever, Chills Allergies: Coded Allergies: Loperamide (Verified Allergy, Severe, 08/13/23) Nystatin (Verified Allergy, Severe, 08/13/23) Penicillins (Verified Allergy, Severe, 08/13/23) Exam Vital Signs Vital Signs Date Time Temp Pulse Resp B/P (MAP) Pulse Ox O2 Delivery O2 Flow Rate FiO2 08/15/24 21:54 98.3 56 16 116/78 (91) 95 98.3 08/15/24 16:08 Room Air* 0 21 Exam General Appearance: Alert, Oriented X3, Cooperative, No acute distress HEENT: Atraumatic, PERRLA, EOMI, Mucous membrane moist/pink Respiratory: Clear to auscultation, Normal air movement Cardiovascular: Regular rate, Normal S1, Normal S2, No murmurs, no chest wall tenderness Abdominal: Distention, no tenderness, bowel sounds present, no scars noted Extremities: No clubbing, No cyanosis, No edema, Normal pulses, No tenderness/swelling Skin: evidence of stasis dermatitis with possible superimposed cellulitis Neuro: Normal gait, Normal speech, Strength at 5/5 X4 ext, Normal tone, Sensation intact, Cranial nerves 3-12 NL, Reflexes 2+ Psych/Mental Status: Mental status NL, Mood NL Labs/Xrays Labs Test 08/15/24 18:42 08/15/24 17:37 08/15/24 16:26 08/15/24 15:53 Range/Units POC Glucose 117 H 70-106 mg/dl Troponin I High Sensitivity 4 </=34 ng/L Urine Color Light-yellow Yellow Urine Clarity Clear Clear Urine pH 5.5 5.0-9.0 Urine Specific [place] 1.012 1.001-1.035 Urine Protein Negative Negative Urine Ketones Negative Negative Urine Blood 2+ H Negative /uL Urine Nitrite Negative Negative Urine Bilirubin Negative Negative Urine Urobilinogen Normal Negative mg/dL Urine Leukocyte Esterase Negative Negative /uL Urine RBC 1 0 - 4 /hpf Urine Microscopic WBC < 1 0-5 /HPF Urine Squamous Epithelial Cells None seen <5 /hpf Urine Bacteria None seen None Seen /hpf Urine Glucose 3+ H Normal mg/dL White Blood Count 6.7 4.4-10.8 10^3/uL Red Blood Count 4.72 4.0-5.20 10^6/uL Hemoglobin 12.1 L 12.2-16.2 g/dL Hematocrit 37.9 36.0-46.0 % Mean Corpuscular Volume 80.4 80.0-100.0 fL Mean Corpuscular Hemoglobin 25.8 L 28.0-32.0 pg Mean Corpuscular Hemoglobin Concent 32.0 32.0-36.0 g/dL Red Cell Distribution Width 17.5 H 11.8-14.3 % Platelet Count 134 L 140-450 10^3/uL Mean Platelet Volume 9.4 6.9-10.8 fL Neutrophils (%) (Auto) 72.0 37.0-80.0 % Lymphocytes (%) (Auto) 15.5 10.0-50.0 % Monocytes (%) (Auto) 7.5 0.0-12.0 % Eosinophils (%) (Auto) 3.5 0.0-7.0 % Basophils (%) (Auto) 1.5 0.0-2.0 % Neutrophils # (Auto) 4.8 1.6-8.6 10 ^3/uL Lymphocytes # (Auto) 1.0 0.4-5.4 10 ^3/uL Monocytes # (Auto) 0.5 0-1.3 10 ^3/uL Eosinophils # (Auto) 0.2 0-0.8 10 ^3/uL Basophils # (Auto) 0.1 0-0.2 10 ^3/uL Nucleated Red Blood Cells 0.2 % D-Dimer, Quantitative 0.82 H 0.0-0.49 mg/L FEU Sodium Level 142 136-145 mmol/L Potassium Level 4.1 3.5-5.1 mmol/L Chloride Level 107 98-107 mmol/L Carbon Dioxide Level 27 20-31 mmol/L Anion Gap 8 5-15 Blood Urea Nitrogen 16 9-23 mg/dL Creatinine 1.57 H 0.550-1.02 mg/dL Glomerular Filtration Rate Calc 38 >90 mL/min BUN/Creatinine Ratio 10.2 10.0-20.0 Serum Glucose 134 H 74-106 mg/dL Lactic Acid Level 1.6 0.4-2.0 mmol/L Calcium Level 9.9 8.7-10.4 mg/dL Total Bilirubin 0.3 0.2-1.0 mg/dL Aspartate Amino Transferase (AST) 39 13-40 U/L Alanine Aminotransferase (ALT) 31 7-40 U/L Alkaline Phosphatase 76 46-116 U/L Total Protein 7.3 5.7-8.2 g/dL Albumin 4.5 3.2-4.8 g/dL Assessment/Plan Assessment/Plan ASSESSMENT Bilateral venous stasis with superimposed cellulitis Diabetes Mellitus A1C: 8.5 ( 05/2024) HIV Neuropathy Iron deficiency anemia Grade II obesity HFpEF ( Echo 60 % 05/2024) : resume home medication( Farxiga, lasix, lisinopril) CAD TOÑA due to VMN CKD Hyperlipidemia Chronic thrombocytopenia Subacute appearing minimally displaced comminuted fracture of the base of the 3rd proximal phalanx with intra-articular extension to the MTP joint. Polyarticular arthropathy plantar and retrocalcaneal enthesopathy. Mild hallux valgus. Plan Start Vancomycin per pharmacy continue Tirumaq Mild sliding scale pregabalin Morphine for pain relieve Medication non adherence ? Orthopedic consult Physical Therapy Follow up on BMP Prophylaxis: takes eliquis Diet: Diabetic/ renal diet Of care discussed for more than 35 minute: Full code Case and plan discussed with Dr. Cazares Plan discussed with: Patient My Orders Orders - MARA DACOSTA RESIDENT Procedure Category Date Status Time Admit ADMIT 08/15/24 Verified 23:37 Code Status CODE 08/15/24 Verified 23:37 Vital Signs BANNER 08/15/24 Verified 23:37 Review Orders With BANNER 08/15/24 Verified Adm. 23:37 Consistent DIET 08/16/24 Verified Carb(Ccho)Diabetes Breakfast Acetaminophen Tablet PHA 08/15/24 Verified (Tylenol Tablet) 23:45 Notify Of Changes BANNER 08/15/24 Verified From Base 23:37 Advance Directive BANNER 08/15/24 Verified 23:37 Patient Condition ORDERS 08/15/24 Verified 23:37 Allergies BANNER 08/15/24 Verified 23:37 Drug Screen LAB 08/15/24 Verified 23:37 Hemoglobin A1c LAB 08/15/24 Verified 23:37 Morphine 2mg Iv Q4hprn PHA 08/15/24 Verified 23:45 Lizet Taveras Of Changes BANNER 08/15/24 Verified From Base 23:37 Ct R Foot Wo Contrast CT 08/15/24 Verified 23:37 Ct L Foot Wo Contrast CT 08/15/24 Verified 23:37 Glucose Blood PHA 08/15/24 Verified (Accu-Chek Comfort 23:45 Mild Insulin Ss Achs PHA 08/15/24 Verified 23:45 Date of Service: Aug 15, 2024 Billing Provider: EDUARDO CAZARES MD Common Visit Codes: [id number] INP/OBS CARE (HIGH) MARA DACOSTA RESIDENT Aug 15, 2024 23:45 EDUARDO CAZARES MD Aug 17, 2024 09:05
[2024-08-16] VITALS (9 sets, daily range): BP systolic 101–153; BP diastolic 34–85; PULSE 50–63; RESP 12–18; TEMP 97.5–98.1; O2SAT 92–98
[2024-08-16] MEDS: MORPHINE SULFATE INJ 2 MG/ml SYRG IV PRN (00:21)
--- NOTE | 2024-08-16 01:39 | DVH ---
INDICATION: PAIN AND NUMBNESS COMPARISON: None TECHNIQUE: CT of the left foot was performed without contrast. Volume transverse images were obtained and reconstructed in multiple planes using bone and soft tissue algorithms. Radiation Dose Information: CT Dose: CTDI volume is 7.89 mGy. Dose-length product is 174.11 mGy*cm FINDINGS: Mild hallux valgus. The alignment is otherwise normal. Moderate degenerative changes are noted at the posterior talocalcaneal joint, where there is moderate osteophytosis, as well as throughout the midfoot. Plantar and retrocalcaneal enthesopathy noted. Subacute appearing minimally displaced comminuted fracture of the base of the 3rd proximal phalanx wi th intra-articular extension and sclerotic change. No other fractures are identified There is no joint effusion. The soft tissues are normal. IMPRESSION: 1. Subacute appearing minimally displaced comminuted fracture of the base of the 3rd proximal phalanx with intra-articular extension to the MTP joint. 2. Polyarticular arthropathy and plantar and retrocalcaneal enthesopathy. 3. Mild hallux valgus. 4. All CT scans at this medical facility are performed using dose modulation techniques as appropriat e to a performed exam including the following: Automated exposure control was utilized; adjustment of the MA and/or KV according to patient size; and use of iterative reconstruction technique.
[2024-08-16] MEDS ORDERED: VANCOMYCIN PER PHARMACY 0 MG IV SCH ×2 (02:00→06:30)
[2024-08-16] MEDS ORDERED: DEXTROSE (50%) 50ML SYRG IV PRN (02:15)
[2024-08-16] MEDS: VANCOMYCIN 1.5GM/250ML 250 ML IV ONE ×2 (02:30→06:46)
--- NOTE | 2024-08-16 04:21 | DVH ---
INDICATION: PAIN AND NUMBNESS COMPARISON: None TECHNIQUE: CT of the right foot was performed without contrast. Volume transverse images were obtaine d and reconstructed in multiple planes using bone and soft tissue algorithms. Radiation Dose Information: CT Dose: CTDI volume is 7.89 mGy. Dose-length product is 174.11 mGy*cm FINDINGS: The alignment is normal. Degenerative changes at the posterior talocalcaneal joint include marginal osteophytosis. Retrocalcan eal enthesopathy noted. Small cortical fragment noted laterally and inferiorly adjacent to the cuboid, possibly representing an avulsion fracture. There is otherwise no fracture, dislocation or aggressive osseous lesion. There is no joint effusion. The soft tissues are normal. IMPRESSION: 1. Possible small avulsion fracture along the inferolateral margin of the cuboid. 2. Degenerative change. 3. All CT scans at this medical facility are performed using dose modulation techniques as appropriat e to a performed exam including the following: Automated exposure control was utilized; adjustment of the MA and/or KV according to patient size; and use of iterative reconstruction technique.
[2024-08-16] MEDS: InsuLIN REG 1unit/0.01ml Soln (100units/ml) SC SCH (06:23)
[2024-08-16] MEDS: ACCU-CHEK COMFORT CURVE STRIP VI SCH (06:24)
[2024-08-16 06:50] LABS: INR 1.06 (0.9-1.15); Prothrombin Time 11.2 sec (9.3-11.8)
[2024-08-16 06:52] LABS: CRP High Sensitivity 0.75 mg/dL (<1.0)
[2024-08-16 07:01] LABS: Basophils # (auto) 0.1 10 ^3/uL (0-0.2); Eosinophils # (auto) 0.3 10 ^3/uL (0-0.8); Hemoglobin 11.4 g/dL (12.2-16.2); Monocytes # (auto) 0.6 10 ^3/uL (0-1.3); Nucleated Red Blood Cells % 0.1 %; White Blood Cell 5.6 10^3/uL (4.4-10.8)
[2024-08-16 07:02] LABS: Eosinophils % (auto) 5.9 % (0.0-7.0); Hematocrit 35.2 % (36.0-46.0); Lymphocytes # (auto) 1.3 10 ^3/uL (0.4-5.4); Lymphocytes % (auto) 22.8 % (10.0-50.0); Mean Corpuscular Hemoglobin 26.3 pg (28.0-32.0); Mean Corpuscular Hgb Conc. 32.5 g/dL (32.0-36.0); Monocytes % (auto) 9.9 % (0.0-12.0); Neutrophils # (auto) 3.3 10 ^3/uL (1.6-8.6); Neutrophils % (auto) 59.4 % (37.0-80.0); Platelet Count (auto) 114 10^3/uL (140-450); Red Blood Cells 4.34 10^6/uL (4.0-5.20); Red Cell Distribution Width 16.9 % (11.8-14.3)
[2024-08-16 07:14] LABS: Erythrocyte Sedimentation Rate 14 mm/hr (0-20)
[2024-08-16 08:03] LABS: Alanine Aminotransferase 26 U/L (7-40); Albumin 4.1 g/dL (3.2-4.8); Alkaline Phosphatase 70 U/L (46-116); Anion Gap 10 (5-15); BUN/Creatinine Ratio 10.3 (10.0-20.0); Bilirubin, Total 0.3 mg/dL (0.2-1.0); Blood Urea Nitrogen 13 mg/dL (9-23); Calcium 9.5 mg/dL (8.7-10.4); Carbon Dioxide 22 mmol/L (20-31); Potassium 3.5 mmol/L (3.5-5.1); Sodium 141 mmol/L (136-145)
[2024-08-16 08:12] LABS: Aspartate Aminotransferase 42 U/L (13-40); Chloride 109 mmol/L (98-107); Glucose 134 mg/dL (74-106)
[2024-08-16] MEDS: FUROSEMIDE 20 MG/2 ML VIAL IV SCH (10:00)
[2024-08-16] MEDS: PREGABALIN 25 MG CAP PO SCH (14:00)
[2024-08-16] MEDS: SODIUM CHLORIDE 0.9% 1,000 ML IV SCH (16:05)
[2024-08-16] MEDS: DOXYCYCLINE 100MG/100ML 100 ML IV SCH (16:10)
--- NOTE | 2024-08-16 16:14 | DVHPN2 ---
Subjective Feels better. Some shortness of breath Reviewed: Care Plan, H&P, Labs, Medications, Previous Orders, Radiology Changes from previous H/P or p: No Changes Objective Vitals Vital Signs Date Time Temp Pulse Resp B/P (MAP) Pulse Ox O2 Delivery O2 Flow Rate FiO2 08/16/24 13:00 97.8 58 16 101/34 (56) 98 97.8 08/16/24 08:05 Room Air* 0 21 Intake/Output Intake and Output 08/16/24 07:00 Intake Total 600 ml Balance 600 ml Intake Oral 600 ml General Appearance: Alert, Oriented X3, Cooperative, No acute distress HEENT: Atraumatic Lungs: Clear to auscultation Cardiovascular: Regular rate Abdomen: Normal bowel sounds, Soft, No tenderness Extremities: Other (Mild swelling and tenderness in the left 3rd toe. Minimal redness bilateral lower extremity/feet) Medications Current Medications Medications Dose Ordered Sig/Uyen Route Start Time Stop Time Status Last Admin Dose Admin Acetaminophen 650 mg Q6HP PRN PO 08/15/24 23:45 Morphine Sulfate 2 mg Q4HPRN PRN IV 08/15/24 23:45 08/16/24 11:11 2 MG Diagnostic Test (Pha) 1 strip ACHS 08/16/24 07:00 08/16/24 11:25 1 STRIP Insulin Human Regular ACHS SC 08/16/24 07:00 08/16/24 06:23 2 UNITS Dextrose 50 ml UD PRN IV 08/16/24 02:15 Patient Own Medication 1 DAILY PO 08/16/24 10:00 Pregabalin 100 mg TID PO 08/16/24 14:00 Clindamycin Phosphate 50 ml @ 50 mls/hr Q8HR IV 08/16/24 14:00 Doxycycline Hyclate 100 ml @ 50 mls/hr Q12H IV 08/16/24 13:00 Sodium Chloride 1,000 ml @ 100 mls/hr Q10H IV 08/16/24 13:00 Tramadol HCl 50 mg Q6HP PRN PO 08/16/24 13:45 Laboratory Results Laboratory Tests 08/16/24 05:50 Chemistry Test 08/16/24 05:50 Albumin 4.1 g/dL (3.2-4.8) Calcium Level 9.5 mg/dL (8.7-10.4) Total Protein 7.0 g/dL (5.7-8.2) Coagulation Test 08/16/24 05:50 Prothrombin Time 11.2 sec (9.3-11.8) Prothrombin Time INR 1.06 (0.9-1.15) LFT Test 08/16/24 05:50 Alanine Aminotransferase (ALT) 26 U/L (7-40) Alkaline Phosphatase 70 U/L (46-116) Aspartate Amino Transferase (AST) 42 U/L (13-40) H Total Bilirubin 0.3 mg/dL (0.2-1.0) Urinalysis Test 08/15/24 16:26 Urine Color Light-yellow (Yellow) Urine Clarity Clear (Clear) Urine pH 5.5 (5.0-9.0) Urine Specific [place] 1.012 (1.001-1.035) Urine Protein Negative (Negative) Urine Ketones Negative (Negative) Urine Blood 2+ /uL (Negative) H Urine Nitrite Negative (Negative) Urine Bilirubin Negative (Negative) Urine Urobilinogen Normal mg/dL (Negative) Urine Leukocyte Esterase Negative /uL (Negative) Urine RBC 1 /hpf (0 - 4) Urine Microscopic WBC < 1 /HPF (0-5) Urine Squamous Epithelial Cells None seen /hpf (<5) Urine Bacteria None seen /hpf (None Seen) Urine Glucose 3+ mg/dL (Normal) H Microbiology Microbiology Date/Time Source Procedure Growth Status 08/16/24 04:15 Nose MRSA Screen - Final Complete Assessment/Plan Assessment/Plan Left 3rd toe proximal phalanx fracture Mild cellulitis bilateral lower extremities Rhabdomyolysis Questionable right cuboid avulsion fracture Diabetes Diabetic neuropathy Anemia of chronic disease Thrombocytopenia Chronic kidney disease stage 3 Dyslipidemia AFib HIV Polyarthropathy in the feet Shortness of breaths/minimal/we will obtain x-ray Plan: Recheck CPK. Repeat labs CBC and CMP sed rate. Discontinue vancomycin due to the kidney function tests. Start clindamycin and doxycycline. Podiatry consult. Chest x-ray. Further plan per orders Plan discussed with: Patient, Other (Nursing) My Orders Orders - BENIGNO ALAN MD Procedure Category Date Status Time Clindamycin 600mg Iv PHA 08/16/24 In Process (Cleocin Iv) 14:00 Doxycycline PHA 08/16/24 In Process 100mg/100ml 13:00 Sodium Chloride 0.9% PHA 08/16/24 In Process 13:00 Creatine Kinase LAB 08/17/24 Verified 00:57 Creatine Kinase LAB 08/17/24 Verified 12:57 C-Reactive Protein LAB 08/17/24 Verified 05:00 Erythrocyte LAB 08/17/24 Verified Sedimentation Rate 05:00 Comprehensive LAB 08/17/24 Verified Metabolic Panel 06:00 Tramadol Hcl (Ultram) PHA 08/16/24 In Process 13:45 Apply: SANJU 08/16/24 In Process 13:58 Chest Xray 1 View XY 08/16/24 Logged 14:42 Date of Service: Aug 16, 2024 Billing Provider: BENIGNO ALAN MD Common Visit Codes: [id number] INP/OBS CARE(HIGH) BENIGNO ALAN MD Aug 16, 2024 16:14
[2024-08-16] MEDS: traMADol HCL 50 MG TAB PO PRN (16:35)
--- NOTE | 2024-08-16 16:58 | DVH ---
EXAM: XY CHEST XRAY 1 VIEW TECHNIQUE: Single frontal chest radiograph CLINICAL HISTORY: shortnes of breath COMPARISON: XY CHEST PORTABLE on DOS: 08/14/24, XY CHEST PORTABLE on DOS: 08/21/23, XY CHEST PORTABLE on DOS: 08/13/23 Findings/Impression: Frontal chest radiograph demonstrates the patient is rotated to the right. No acute osseous or superf icial soft tissue abnormalities. The trachea is midline. The cardiac silhouette and mediastinum are within normal limits. No pneumothorax, pleural effusions, or consolidations.
[2024-08-16] MEDS: CLINDAMYCIN 600MG IV 50 ML IV SCH (18:34)
[2024-08-16] MEDS ORDERED: VANCOMYCIN 1GM/200ML PM 250 ML IV SCH (20:00)
[2024-08-17] VITALS (9 sets, daily range): BP systolic 122–159; BP diastolic 62–75; PULSE 55–69; RESP 12–19; TEMP 97.5–98.2; O2SAT 92–96
[2024-08-17 06:06] LABS: Basophils # (auto) 0.1 10 ^3/uL (0-0.2); Eosinophils # (auto) 0.2 10 ^3/uL (0-0.8); Eosinophils % (auto) 5.1 % (0.0-7.0); Hematocrit 36.1 % (36.0-46.0); Hemoglobin 11.7 g/dL (12.2-16.2); Lymphocytes # (auto) 0.9 10 ^3/uL (0.4-5.4); Lymphocytes % (auto) 21.9 % (10.0-50.0); Mean Corpuscular Hemoglobin 27.7 pg (28.0-32.0); Mean Corpuscular Hgb Conc. 32.4 g/dL (32.0-36.0); Mean Corpuscular Volume 85.4 fL (80.0-100.0); Monocytes # (auto) 0.5 10 ^3/uL (0-1.3); Monocytes % (auto) 12.3 % (0.0-12.0); Neutrophils # (auto) 2.5 10 ^3/uL (1.6-8.6); Neutrophils % (auto) 58.7 % (37.0-80.0); Nucleated Red Blood Cells % 0.1 %; Platelet Count (auto) 106 10^3/uL (140-450); Red Blood Cells 4.23 10^6/uL (4.0-5.20); Red Cell Distribution Width 17.3 % (11.8-14.3); White Blood Cell 4.2 10^3/uL (4.4-10.8)
[2024-08-17 06:19] LABS: Alanine Aminotransferase 32 U/L (7-40); Albumin 4.1 g/dL (3.2-4.8); Alkaline Phosphatase 71 U/L (46-116); Anion Gap 6 (5-15); BUN/Creatinine Ratio 10.2 (10.0-20.0); Blood Urea Nitrogen 13 mg/dL (9-23); Carbon Dioxide 25 mmol/L (20-31); Chloride 106 mmol/L (98-107); Potassium 4.5 mmol/L (3.5-5.1); Sodium 137 mmol/L (136-145)
[2024-08-17 06:44] LABS: Aspartate Aminotransferase 72 U/L (13-40); Bilirubin, Total 0.3 mg/dL (0.2-1.0); CRP High Sensitivity 1.31 mg/dL (<1.0); Glucose 203 mg/dL (74-106)
--- NOTE | 2024-08-17 10:49 | DVHPN2 ---
Subjective Feels better. Some shortness of breath Reviewed: Care Plan, H&P, Labs, Medications, Previous Orders, Radiology Changes from previous H/P or p: No Changes Objective Vitals Vital Signs Date Time Temp Pulse Resp B/P (MAP) Pulse Ox O2 Delivery O2 Flow Rate FiO2 08/17/24 08:56 97.5 59 19 122/74 (90) 93 97.5 08/16/24 20:00 Room Air* 0 21 Intake/Output Intake and Output 08/17/24 06:59 Intake Total 3640 ml Output Total 2 ml Balance 3638 ml Intake Oral 1940 ml IV Total 1700 ml Output Urine Total 2 ml # Voids 3 # Bowel Movements 1 General Appearance: Alert, Oriented X3, Cooperative, No acute distress HEENT: Atraumatic Lungs: Clear to auscultation Cardiovascular: Regular rate Abdomen: Normal bowel sounds, Soft, No tenderness Extremities: Other (No open wounds in the feet. There is tenderness in the left 1st MTP. No more swelling in the left 3rd toe.) Medications Current Medications Medications Dose Ordered Sig/Uyen Route Start Time Stop Time Status Last Admin Dose Admin Acetaminophen 650 mg Q6HP PRN PO 08/15/24 23:45 Morphine Sulfate 2 mg Q4HPRN PRN IV 08/15/24 23:45 08/16/24 11:11 2 MG Diagnostic Test (Pha) 1 strip ACHS 08/16/24 07:00 08/17/24 05:30 1 STRIP Insulin Human Regular ACHS SC 08/16/24 07:00 08/16/24 06:23 2 UNITS Dextrose 50 ml UD PRN IV 08/16/24 02:15 Patient Own Medication 1 DAILY PO 08/16/24 10:00 Pregabalin 100 mg TID PO 08/16/24 14:00 08/17/24 05:28 100 MG Clindamycin Phosphate 50 ml @ 50 mls/hr Q8HR IV 08/16/24 14:00 08/17/24 05:17 50 MLS/HR Doxycycline Hyclate 100 ml @ 50 mls/hr Q12H IV 08/16/24 13:00 08/17/24 01:00 50 MLS/HR Sodium Chloride 1,000 ml @ 100 mls/hr Q10H IV 08/16/24 13:00 08/17/24 09:18 100 MLS/HR Tramadol HCl 50 mg Q6HP PRN PO 08/16/24 13:45 08/17/24 09:19 50 MG Laboratory Results Laboratory Tests 08/17/24 05:33 Chemistry Test 08/17/24 05:33 Albumin 4.1 g/dL (3.2-4.8) Calcium Level 10.0 mg/dL (8.7-10.4) Total Protein 7.0 g/dL (5.7-8.2) LFT Test 08/17/24 05:33 Alanine Aminotransferase (ALT) 32 U/L (7-40) Alkaline Phosphatase 71 U/L (46-116) Aspartate Amino Transferase (AST) 72 U/L (13-40) H Total Bilirubin 0.3 mg/dL (0.2-1.0) Urinalysis Test 08/15/24 16:26 Urine Color Light-yellow (Yellow) Urine Clarity Clear (Clear) Urine pH 5.5 (5.0-9.0) Urine Specific [place] 1.012 (1.001-1.035) Urine Protein Negative (Negative) Urine Ketones Negative (Negative) Urine Blood 2+ /uL (Negative) H Urine Nitrite Negative (Negative) Urine Bilirubin Negative (Negative) Urine Urobilinogen Normal mg/dL (Negative) Urine Leukocyte Esterase Negative /uL (Negative) Urine RBC 1 /hpf (0 - 4) Urine Microscopic WBC < 1 /HPF (0-5) Urine Squamous Epithelial Cells None seen /hpf (<5) Urine Bacteria None seen /hpf (None Seen) Urine Glucose 3+ mg/dL (Normal) H Microbiology Microbiology Date/Time Source Procedure Growth Status 08/16/24 05:50 Blood Blood Culture - Preliminary NO GROWTH AFTER 24 HOURS OF INCUBATION. Resulted 08/16/24 04:15 Nose MRSA Screen - Final Complete Assessment/Plan Assessment/Plan Left 3rd toe proximal phalanx fracture Mild cellulitis bilateral lower extremities Rhabdomyolysis Questionable right cuboid avulsion fracture Diabetes Diabetic neuropathy Anemia of chronic disease Thrombocytopenia Chronic kidney disease stage 3 Dyslipidemia AFib HIV Polyarthropathy in the feet Shortness of breaths/minimal/we will obtain x-ray Plan: MRI ordered by Podiatry pending. Recheck labs. Further plan per orders Plan discussed with: Patient, Other (Nursing) My Orders Orders - BENIGNO ALAN MD Procedure Category Date Status Time Clindamycin 600mg Iv PHA 08/16/24 In Process (Cleocin Iv) 14:00 Doxycycline PHA 08/16/24 In Process 100mg/100ml 13:00 Sodium Chloride 0.9% PHA 08/16/24 In Process 13:00 Creatine Kinase LAB 08/17/24 Logged 12:57 Erythrocyte LAB 08/17/24 In Process Sedimentation Rate 05:00 Tramadol Hcl (Ultram) PHA 08/16/24 In Process 13:45 Apply: SANJU 08/16/24 In Process 13:58 Chest Xray 1 View XY 08/16/24 Resulted 14:42 Date of Service: Aug 17, 2024 Billing Provider: BENIGNO ALAN MD Common Visit Codes: [id number] INP/OBS CARE(HIGH) BENIGNO ALAN MD Aug 17, 2024 10:49
[2024-08-17 11:10] LABS: Erythrocyte Sedimentation Rate 18 mm/hr (0-20)
--- NOTE | 2024-08-17 14:26 | DVH ---
EXAMINATION: MRI MRI R FOOT WO CONTRAST TECHNIQUE: MRI of the right foot was performed. The following sequences were obtained without contra st: Sagittal PD Sagittal T2 FS Coronal T1 Coronal PD FS Axial PD FS Oblique ACL view HISTORY: R/O OSTEO COMPARISON: CT CT R FOOT WO CONTRAST on DOS: 08/16/24, CT CT L FOOT WO CONTRAST on DOS: 08/16/24 FINDINGS: Markedly abnormal signal is seen in the distal tibial diaphyseal shaft. STIR sagittal images demonstr ate areas of both increased and decreased signal, best seen on image 11, series 8. The CT study of does not demonstrate cortical destructive changes of the distal tibial diaphyseal shaft. Fin dings are most likely related to a bone infarct moderately large. There is a 1 cm cyst in the calcaneus, image 9, series 8. There is mild thinning of the cartilage ove rlying the talar dome . 2 mm subchondral degenerative cystic changes seen of the talar dome slightly medial to midline, image 13, series 8. Mild edematous changes of the tarsal tunnel as well as soft tissues plantar and medial consistent wit h cellulitis. There is an accessory ossicle adjacent to the cuboid. No fracture identified. Retrocalcaneal enthesop athy noted consistent with the prior CT. Degenerative changes of the posterior talocalcaneal joint wi th marginal osteophytosis. No osteomyelitis. No soft tissue abscess. 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
--- NOTE | 2024-08-17 14:58 | DVH ---
EXAMINATION: MRI MRI L FOOT WO CONTRAST TECHNIQUE: MRI of the left foot was performed. The following sequences were obtained without contra st: Axial PD Axial PD FS Coronal T1 Coronal PD FS Coronal Oblique PD FS Sagittal T1 Sagittal T2 HISTORY: R/O OSTEO COMPARISON: CT CT R FOOT WO CONTRAST on DOS: 08/16/24, CT CT L FOOT WO CONTRAST on DOS: 08/16/24 FINDINGS: 1.4 cm cyst seen in the calcaneus. Old fracture seen of the base of the 3rd proximal phalanx with int ra-articular extension into the metatarsophalangeal joint better visualized on the previous CT study. Abnormal signal seen in the distal tibial diaphyseal shaft consistent with old bone infarct. Edematous changes seen in the plantar soft tissues compatible with cellulitis. No osteomyelitis. No a cute fracture. No soft tissue abscess. Moderate degenerative changes seen of the midfoot. IMPRESSION: Cellulitis No osteomyelitis Old fracture seen of the 3rd proximal phalanx consistent with prior CT study. Moderate degenerative changes of the midfoot.
--- NOTE | 2024-08-17 17:19 | MEDREC ---
[facility] Intervention Section I [facility] Intervention: Duplication of therapy (PLEASE CONSIDER D/C CLINDAMYCIN OR DOXYCYCLINE (POTENTIAL DUPLICATE THERAPY) ) BRUNO CORTEZ PHARMACIST Aug 17, 2024 17:19
[2024-08-18] VITALS (8 sets, daily range): BP systolic 125–150; BP diastolic 50–78; PULSE 56–77; RESP 15–20; TEMP 97.9–98.7; O2SAT 93–97
[2024-08-18 06:35] LABS: Basophils # (auto) 0.1 10 ^3/uL (0-0.2); Basophils % (auto) 1.4 % (0.0-2.0); Eosinophils # (auto) 0.2 10 ^3/uL (0-0.8); Eosinophils % (auto) 5.8 % (0.0-7.0); Hematocrit 37.3 % (36.0-46.0); Hemoglobin 11.9 g/dL (12.2-16.2); Lymphocytes # (auto) 0.7 10 ^3/uL (0.4-5.4); Lymphocytes % (auto) 15.7 % (10.0-50.0); Mean Corpuscular Hemoglobin 25.5 pg (28.0-32.0); Mean Corpuscular Hgb Conc. 31.9 g/dL (32.0-36.0); Monocytes # (auto) 0.4 10 ^3/uL (0-1.3); Monocytes % (auto) 10.4 % (0.0-12.0); Neutrophils # (auto) 2.9 10 ^3/uL (1.6-8.6); Neutrophils % (auto) 66.7 % (37.0-80.0); Nucleated Red Blood Cells % 0.1 %; Platelet Count (auto) 103 10^3/uL (140-450); Red Blood Cells 4.66 10^6/uL (4.0-5.20); Red Cell Distribution Width 17.5 % (11.8-14.3); White Blood Cell 4.3 10^3/uL (4.4-10.8)
[2024-08-18 06:52] LABS: Alanine Aminotransferase 38 U/L (7-40); Albumin 4.2 g/dL (3.2-4.8); Alkaline Phosphatase 72 U/L (46-116); Anion Gap 6 (5-15); Blood Urea Nitrogen 14 mg/dL (9-23); Calcium 9.9 mg/dL (8.7-10.4); Carbon Dioxide 24 mmol/L (20-31); Creatine Kinase IFCC 171 U/L (34-145); Potassium 4.3 mmol/L (3.5-5.1); Sodium 140 mmol/L (136-145)
[2024-08-18 06:53] LABS: Aspartate Aminotransferase 78 U/L (13-40); Bilirubin, Total 0.3 mg/dL (0.2-1.0); Chloride 110 mmol/L (98-107); Glucose 210 mg/dL (74-106)
--- NOTE | 2024-08-18 14:45 | DVHPN2 ---
Subjective Patient continues to report having bilateral foot pain Reviewed: Care Plan, H&P, Labs, Medications, Previous Orders, Radiology Changes from previous H/P or p: No Changes General: Per HPI Objective Vitals Vital Signs Date Time Temp Pulse Resp B/P (MAP) Pulse Ox O2 Delivery O2 Flow Rate FiO2 08/18/24 13:00 98.1 65 20 125/77 (93) 97 98.1 08/18/24 08:00 Room Air* 0 21 Intake/Output Intake and Output 08/18/24 07:00 Intake Total 1650 ml Balance 1650 ml Intake Oral 500 ml IV Total 1150 ml # Voids 4 # Bowel Movements 1 General Appearance: Alert, Oriented X3, Cooperative, No acute distress HEENT: Atraumatic Lungs: Clear to auscultation Cardiovascular: Regular rate Abdomen: Normal bowel sounds, Soft, No tenderness Extremities: Other (No open wounds in the feet. There is tenderness in the left 1st MTP. No more swelling in the left 3rd toe.) Skin: Dry, Intact Psych/Mental Status: Mental status NL, Mood NL Medications Current Medications Medications Dose Ordered Sig/Uyen Route Start Time Stop Time Status Last Admin Dose Admin Acetaminophen 650 mg Q6HP PRN PO 08/15/24 23:45 Morphine Sulfate 2 mg Q4HPRN PRN IV 08/15/24 23:45 08/16/24 11:11 2 MG Diagnostic Test (Pha) 1 strip ACHS 08/16/24 07:00 08/18/24 11:32 1 STRIP Insulin Human Regular ACHS SC 08/16/24 07:00 08/16/24 06:23 2 UNITS Dextrose 50 ml UD PRN IV 08/16/24 02:15 Patient Own Medication 1 DAILY PO 08/16/24 10:00 Pregabalin 100 mg TID PO 08/16/24 14:00 08/18/24 14:28 100 MG Clindamycin Phosphate 50 ml @ 50 mls/hr Q8HR IV 08/16/24 14:00 08/18/24 14:28 50 MLS/HR Doxycycline Hyclate 100 ml @ 50 mls/hr Q12H IV 08/16/24 13:00 08/18/24 01:00 50 MLS/HR Sodium Chloride 1,000 ml @ 100 mls/hr Q10H IV 08/16/24 13:00 08/18/24 05:28 100 MLS/HR Tramadol HCl 50 mg Q6HP PRN PO 08/16/24 13:45 08/17/24 09:19 50 MG Laboratory Results Laboratory Tests 08/18/24 06:06 Chemistry Test 08/18/24 06:06 Albumin 4.2 g/dL (3.2-4.8) Calcium Level 9.9 mg/dL (8.7-10.4) Total Protein 7.0 g/dL (5.7-8.2) LFT Test 08/18/24 06:06 Alanine Aminotransferase (ALT) 38 U/L (7-40) Alkaline Phosphatase 72 U/L (46-116) Aspartate Amino Transferase (AST) 78 U/L (13-40) H Total Bilirubin 0.3 mg/dL (0.2-1.0) Urinalysis Test 08/15/24 16:26 Urine Color Light-yellow (Yellow) Urine Clarity Clear (Clear) Urine pH 5.5 (5.0-9.0) Urine Specific [place] 1.012 (1.001-1.035) Urine Protein Negative (Negative) Urine Ketones Negative (Negative) Urine Blood 2+ /uL (Negative) H Urine Nitrite Negative (Negative) Urine Bilirubin Negative (Negative) Urine Urobilinogen Normal mg/dL (Negative) Urine Leukocyte Esterase Negative /uL (Negative) Urine RBC 1 /hpf (0 - 4) Urine Microscopic WBC < 1 /HPF (0-5) Urine Squamous Epithelial Cells None seen /hpf (<5) Urine Bacteria None seen /hpf (None Seen) Urine Glucose 3+ mg/dL (Normal) H Microbiology Microbiology Date/Time Source Procedure Growth Status 08/16/24 05:50 Blood Blood Culture - Preliminary NO GROWTH AFTER 48 HOURS OF INCUBATION. Resulted 08/16/24 04:15 Nose MRSA Screen - Final Complete Labs and/or images reviewed: Labs reviewed by me, Image(s) reviewed by me Assessment/Plan Assessment/Plan Impression: -rule out right foot distal tibial infarct -HIV -obesity -AFib -diabetes mellitus -diabetic nephropathy Plan: -podiatry consultation -continue antibiotic therapy -regular insulin sliding scale -restart antiviral medication -continue anticoagulation Total time spent with patient discussing and formulating plan of care: 35 minutes. This medical document was created using an electronic medical record system with [employer] system. Although this document has been carefully reviewed, there may still be some phonetic and typographical errors. These areas are purely typographical due to imperfections of the software programs, and do not reflect any compromise in the patient's medical care. Plan discussed with: Patient, Other (RN) My Orders Orders - RAINER DIAZ NP Procedure Category Date Status Time *Podiatry Consult CONS 08/18/24 Verified [facility]) 14:39 Lactate Dehydrogenase LAB 08/18/24 Verified 14:39 Date of Service: Aug 18, 2024 Billing Provider: RAINER DIAZ NP Common Visit Codes: [id number] INP/OBS CARE(HIGH) RAINER DIAZ NP Aug 18, 2024 14:45
--- NOTE | 2024-08-18 15:55 | DVHINCON2 ---
Date Seen: Aug 18, 2024 Reason for Consultation Bilateral foot wounds History of Present Illness This is a 59-year-old female with significant past medical history which include DM, HTN, HLD, CDK 3 Afib, HIV, and neuropathy presented to the ED with bilateral foot wound. According to the patient, over the past 3 weeks, she has noticed a wound on her left big toe that has been causing her an excruciating whenever she wears her shoes or walks on it. She also has another wound on the right right heel. Patient mentioned that she is sort of homeless. She lives in a hotel where she need to change location every 21 days. Because of this living arrangement, she has not been compliant with her medications. Patient is diabetic does no know her A1c. Patient has subjective fever and chills. She denies chest pain, nausea, vomiting or shortness of breaths. Patient also mentioned that on Sunday ( 08/12/2024) after taking her bath, she accidentally fell on the floor landing on her left side. But she did not hit her head. She complained of left should pain. 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 08/15/23 Reported Medications Amiodarone HCl (Amiodarone HCl) 200 Mg Tab, 1 TAB PO BID for 90 Days, #180 08/18/24 Insulin Glargine (Basaglar Kwikpen) 100 Unit/Ml Inj, 100 UNITS SC BID for 30 Days, #60 08/18/24 Insulin Lispro (Insulin Lispro Kwikpen) 100 Unit/Ml Inj, 10 UNITS SC DAILY for 100 Days, #15 08/18/24 Cetirizine HCl (Cetirizine Hydrochloride) 10 Mg Tab, 1 TAB PO DAILY for 90 Days, #90 08/18/24 Dapagliflozin Propanediol (Dapagliflozin Propanediol) 5 Mg Tab, 1 TAB PO DAILY for 100 Days, #100 08/18/24 Ferrous Sulfate (Ferosul) 325 Mg Tab, 1 TAB PO DAILY for anemia 06/08/24 Ctjrmggl-Vajryteztoja-Zxeussqm (Triumeq 600-50-300 mg) 1 Tab Tab, 1 TAB PO DAILY for 30 Days, #30 06/08/24 Sitagliptin Phosphate (Januvia) 100 Mg Tab, 1 DAILY for 90 Days, #90 06/08/24 Metoprolol Tartrate (Metoprolol Tartrate) 25 Mg Tab, 25 MG PO DAILY for 90 Days, #90 06/06/24 Fenofibrate (FENOFIBRATE) 145 Mg Tab, 1 TAB PO DAILY for 90 Days, #90 06/06/24 Potassium Chloride (POTASSIUM CHLORIDE CR) 10 Meq Tb, 1 TAB PO DAILY for 30 Days, #30 06/06/24 Cyclobenzaprine HCl (Cyclobenzaprine Hydrochlo) 10 Mg Tab, 1 TAB PO BID PRN for PAIN FOR MUSCLE SPASMS for 30 Days, #15 08/13/23 Famotidine (Famotidine) 20 Mg Tab, 1 TAB PO BID PRN for ACID REFLUX AND ABDOMINAL PAIN for 90 Days, #180 08/13/23 Furosemide (Furosemide) 40 Mg Tab, 1 TAB PO DAILY for 90 Days, #90 08/13/23 Hydrocodone-Acetaminophen (Hydrocodone/Acetaminophen 5-325 mg) 1 Tab Tab, 2 TAB PO BID 08/13/23 Pregabalin (Pregabalin) 200 Mg Cap, 1 CAP PO TID for 30 Days, #90 08/13/23 Lisinopril (Lisinopril) 2.5 Mg Tab, 1 TAB PO DAILY for 90 Days, #90 08/13/23 Apixaban Base (ELIQUIS) 5 Mg Tab, 1 TAB PO BID for 45 Days, #90 08/13/23 Aspirin (Aspirin) 81 Mg Chw, 1 TAB PO DAILY for 90 Days, #90 08/13/23 Atorvastatin Calcium (ATORVASTATIN CALCIUM) 40 Mg Tab, 1 TAB PO DAILY for 90 Days, #90 08/13/23 Discontinued Reported Medications Dapagliflozin Propanediol (Farxiga) 10 Mg Tab, 5 MG PO DAILY, TAB 06/06/24 Vital Signs Vital Signs Date Time Temp Pulse Resp B/P (MAP) Pulse Ox O2 Delivery O2 Flow Rate FiO2 08/18/24 13:00 98.1 65 20 125/77 (93) 97 98.1 08/18/24 08:00 Room Air* 0 21 Physical Exam DERMATOLOGIC EXAM: - Skin is dry and cool to the touch dry bilaterally. - Nails 1-5 of the bilateral foot are thickened, discolored, dystrophic, and tender to palpate with subungual debris - Hair loss noted to bilateral feet - dried callus on the left hallux VASCULAR EXAM: - DP and PT pulses are palpable bilaterally. - MONITORING SPECIALIST is brisk to all digits. - Feet are cool to touch compared to lower legs bilaterally. NEUROLOGIC EXAM: - Normal light touch sensation to the superficial peroneal, deep peroneal, sural, saphenous, and tibial nerve branches. - Protective sensation is diminished as tested with a 5.07 10g [place] bilaterally. MUSCULOSKELETAL EXAM: - No gross deformities - Muscle strength is 5/5 and active motion is pain-free and symmetrical bilaterally - No pain or crepitation with passive range of motion bilaterally to all major pedal joints Labs/Diagnostic Data Labs Test 08/18/24 11:24 08/18/24 06:06 08/17/24 09:29 08/17/24 05:33 Range/Units POC Glucose 296 H 70-106 mg/dl White Blood Count 4.3 L 4.4-10.8 10^3/uL Red Blood Count 4.66 4.0-5.20 10^6/uL Hemoglobin 11.9 L 12.2-16.2 g/dL Hematocrit 37.3 36.0-46.0 % Mean Corpuscular Volume 80.0 # 80.0-100.0 fL Mean Corpuscular Hemoglobin 25.5 L 28.0-32.0 pg Mean Corpuscular Hemoglobin Concent 31.9 L 32.0-36.0 g/dL Red Cell Distribution Width 17.5 H 11.8-14.3 % Platelet Count 103 L 140-450 10^3/uL Mean Platelet Volume 9.5 6.9-10.8 fL Neutrophils (%) (Auto) 66.7 37.0-80.0 % Lymphocytes (%) (Auto) 15.7 10.0-50.0 % Monocytes (%) (Auto) 10.4 0.0-12.0 % Eosinophils (%) (Auto) 5.8 0.0-7.0 % Basophils (%) (Auto) 1.4 0.0-2.0 % Neutrophils # (Auto) 2.9 1.6-8.6 10 ^3/uL Lymphocytes # (Auto) 0.7 0.4-5.4 10 ^3/uL Monocytes # (Auto) 0.4 0-1.3 10 ^3/uL Eosinophils # (Auto) 0.2 0-0.8 10 ^3/uL Basophils # (Auto) 0.1 0-0.2 10 ^3/uL Nucleated Red Blood Cells 0.1 % Sodium Level 140 136-145 mmol/L Potassium Level 4.3 3.5-5.1 mmol/L Chloride Level 110 H 98-107 mmol/L Carbon Dioxide Level 24 20-31 mmol/L Anion Gap 6 5-15 Blood Urea Nitrogen 14 9-23 mg/dL Creatinine 1.17 H 0.550-1.02 mg/dL Glomerular Filtration Rate Calc 53 >90 mL/min BUN/Creatinine Ratio 12.0 10.0-20.0 Serum Glucose 210 H 74-106 mg/dL Calcium Level 9.9 8.7-10.4 mg/dL Total Bilirubin 0.3 0.2-1.0 mg/dL Aspartate Amino Transferase (AST) 78 H 13-40 U/L Alanine Aminotransferase (ALT) 38 7-40 U/L Alkaline Phosphatase 72 46-116 U/L Lactate Dehydrogenase 213 120-246 U/L Creatine Kinase 171 H 34-145 U/L Total Protein 7.0 5.7-8.2 g/dL Albumin 4.2 3.2-4.8 g/dL Vancomycin Level Trough 3.1 L 5-10 ug/mL Erythrocyte Sedimentation Rate 18 0-20 mm/hr C-Reactive Protein High Sensitivity 1.31 H <1.0 mg/dL Test 08/16/24 10:17 08/16/24 05:50 08/15/24 17:37 08/15/24 16:26 Range/Units Prothrombin Time 11.2 9.3-11.8 sec Prothrombin Time INR 1.06 0.9-1.15 Vitamin B12 Level 344 211-911 pg/mL HIV (1&2) Antibody Deferred Negative Troponin I High Sensitivity 4 </=34 ng/L Urine Color Light-yellow Yellow Urine Clarity Clear Clear Urine pH 5.5 5.0-9.0 Urine Specific [place] 1.012 1.001-1.035 Urine Protein Negative Negative Urine Ketones Negative Negative Urine Blood 2+ H Negative /uL Urine Nitrite Negative Negative Urine Bilirubin Negative Negative Urine Urobilinogen Normal Negative mg/dL Urine Leukocyte Esterase Negative Negative /uL Urine RBC 1 0 - 4 /hpf Urine Microscopic WBC < 1 0-5 /HPF Urine Squamous Epithelial Cells None seen <5 /hpf Urine Bacteria None seen None Seen /hpf Urine Glucose 3+ H Normal mg/dL Test 08/15/24 15:53 Range/Units D-Dimer, Quantitative 0.82 H 0.0-0.49 mg/L FEU Lactic Acid Level 1.6 0.4-2.0 mmol/L Microbiology Date/Time Source Procedure Growth Status 08/16/24 05:50 Blood Blood Culture - Preliminary NO GROWTH AFTER 48 HOURS OF INCUBATION. Resulted 08/16/24 04:15 Nose MRSA Screen - Final Complete Problems(with codes): (1) Weakness (2) Epistaxis (3) Generalized weakness (4) Renal failure (5) Elevated d-dimer (6) Foot ulcer (7) Acute coronary syndrome (8) Uncontrolled diabetes mellitus (9) Acute chest pain Plan/Recommendation ASSESSMENT: Patient is a 59-year-old female seen for bilateral foot wounds PLAN: - The patients chart was reviewed, clinical findings were discussed with the patient, the etiologies of the conditions were discussed in detail, and a treatment plan was agreed to at this time, with both oral and written instructions provided. - reviewed advanced imaging - discussed that the wounds appear superficial at this point - patient just needs outpatient foot care - recommend getting an VAZQUEZ before DC - can follow up with me in a week or 2 after discharge - would hold off on treating tibial infarction All questions were answered and concerns addressed to the patient's satisfaction. The patient was given the phone number to the clinic and was told how to make contact with the clinic should any concerns or questions arise. Patient understands that if any questions or concerns arise prior to the next appointment, we should be contacted immediately. FOLLOW-UP: Continue to follow while inpatient Plan discussed with: Patient Date of Service: Aug 18, 2024 Billing Provider: JUAN BILLY DPM Common Visit Codes: CONSULT ONLY Consultation Codes: [id number] CONSULT <80MIN JUAN BILLY DPM Aug 18, 2024 15:55
--- NOTE | 2024-08-18 16:49 | DVH ---
BILATERAL Lower Extremity Arterial Duplex Date: 08/18/2024 04:07 PM Clinical History: BLOOD FLOW Comparison: None Technique: Duplex Doppler evaluation including color Doppler and spectral/pulsed waveform analysis of the lower extremity arteries was performed. Finding: RIGHT: Peak systolic velocities are as follows: EMERGING SOLUTIONS EXECUTIVE 142 cm/s Deep femoral 102 cm/s SFA proximal 165 cm/s SFA mid-portion 158 cm/s SFA distal 180 cm/s Popliteal 76 cm/s Posterior tibial 61 cm/s Anterior tibial : Not imaged Dorsalis pedis 115 cm/s The waveforms are triphasic with diastolic flow. LEFT: Peak systolic velocities are as follows: EMERGING SOLUTIONS EXECUTIVE 134 cm/s Deep femoral 100 cm/s SFA proximal 158 cm/s SFA mid-portion 151 cm/s SFA distal 151 cm/s Popliteal 80 cm/s Posterior tibial 60 cm/s Anterior tibial : Not imaged Dorsalis pedis 54 cm/s The waveforms are triphasic with diastolic flow. IMPRESSION: There is about 30-49% stenosis of bilateral superficial femoral arteries based on peak systolic veloc ities. Elevated velocity within the right dorsalis pedis artery with the right anterior tibial artery not im aged limiting evaluation for peak systolic velocity ratio in the right anterior tibial artery and rig ht dorsalis pedis artery. REFERENCE VALUES, [facility] ([facility]) vascular Imaging Lab Criteria: Peak systolic velocity ranges (in cm/sec) are as follows: <150 cm/s - <20 % stenosis 150-200 cm/s - 20-49% stenosis 200-300 cm/s - 50-75% stenosis >300 cm/s -> 75% stenosis
[2024-08-19 01:00] VITALS: BP 146/54; PULSE 68; RESP 20; TEMP 98.1; O2SAT 94
[2024-08-19 05:00] VITALS: BP 124/50; PULSE 59; RESP 20; TEMP 98.4; O2SAT 97
--- NOTE | 2024-08-19 07:09 | ECG ---
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
[2024-08-19 07:58] VITALS: RESP 19; O2SAT 93
[2024-08-19 09:00] VITALS: BP 130/51; PULSE 66; RESP 16; TEMP 98.6; O2SAT 95
--- NOTE | 2024-08-19 10:58 | DVHDS2 ---
Discharge Summary Date of Admission Aug 15, 2024 at 23:37 Date of Discharge: Aug 19, 2024 Admitting Diagnosis Bilateral foot pain with venous stasis ulcer Labs/Diagnostic Data: Laboratory Results Test 08/19/24 05:31 08/18/24 06:06 08/17/24 09:29 08/17/24 05:33 POC Glucose 203 mg/dl (70-106) White Blood Count 4.3 10^3/uL (4.4-10.8) Red Blood Count 4.66 10^6/uL (4.0-5.20) Hemoglobin 11.9 g/dL (12.2-16.2) Hematocrit 37.3 % (36.0-46.0) Mean Corpuscular Volume 80.0 fL (80.0-100.0) Mean Corpuscular Hemoglobin 25.5 pg (28.0-32.0) Mean Corpuscular Hemoglobin Concent 31.9 g/dL (32.0-36.0) Red Cell Distribution Width 17.5 % (11.8-14.3) Platelet Count 103 10^3/uL (140-450) Mean Platelet Volume 9.5 fL (6.9-10.8) Neutrophils (%) (Auto) 66.7 % (37.0-80.0) Lymphocytes (%) (Auto) 15.7 % (10.0-50.0) Monocytes (%) (Auto) 10.4 % (0.0-12.0) Eosinophils (%) (Auto) 5.8 % (0.0-7.0) Basophils (%) (Auto) 1.4 % (0.0-2.0) Neutrophils # (Auto) 2.9 10 ^3/uL (1.6-8.6) Lymphocytes # (Auto) 0.7 10 ^3/uL (0.4-5.4) Monocytes # (Auto) 0.4 10 ^3/uL (0-1.3) Eosinophils # (Auto) 0.2 10 ^3/uL (0-0.8) Basophils # (Auto) 0.1 10 ^3/uL (0-0.2) Nucleated Red Blood Cells 0.1 % Sodium Level 140 mmol/L (136-145) Potassium Level 4.3 mmol/L (3.5-5.1) Chloride Level 110 mmol/L (98-107) Carbon Dioxide Level 24 mmol/L (20-31) Anion Gap 6 (5-15) Blood Urea Nitrogen 14 mg/dL (9-23) Creatinine 1.17 mg/dL (0.550-1.02) Glomerular Filtration Rate Calc 53 mL/min (>90) BUN/Creatinine Ratio 12.0 (10.0-20.0) Serum Glucose 210 mg/dL (74-106) Calcium Level 9.9 mg/dL (8.7-10.4) Total Bilirubin 0.3 mg/dL (0.2-1.0) Aspartate Amino Transferase (AST) 78 U/L (13-40) Alanine Aminotransferase (ALT) 38 U/L (7-40) Alkaline Phosphatase 72 U/L (46-116) Lactate Dehydrogenase 213 U/L (120-246) Creatine Kinase 171 U/L (34-145) Total Protein 7.0 g/dL (5.7-8.2) Albumin 4.2 g/dL (3.2-4.8) Vancomycin Level Trough 3.1 ug/mL (5-10) Erythrocyte Sedimentation Rate 18 mm/hr (0-20) C-Reactive Protein High Sensitivity 1.31 mg/dL (<1.0) Test 08/16/24 10:17 08/16/24 05:50 08/15/24 17:37 08/15/24 16:26 Prothrombin Time 11.2 sec (9.3-11.8) Prothrombin Time INR 1.06 (0.9-1.15) Vitamin B12 Level 344 pg/mL (211-911) HIV (1&2) Antibody Deferred (Negative) Troponin I High Sensitivity 4 ng/L (</=34) Urine Color Light-yellow (Yellow) Urine Clarity Clear (Clear) Urine pH 5.5 (5.0-9.0) Urine Specific Rogers 1.012 (1.001-1.035) Urine Protein Negative (Negative) Urine Ketones Negative (Negative) Urine Blood 2+ /uL (Negative) Urine Nitrite Negative (Negative) Urine Bilirubin Negative (Negative) Urine Urobilinogen Normal mg/dL (Negative) Urine Leukocyte Esterase Negative /uL (Negative) Urine RBC 1 /hpf (0 - 4) Urine Microscopic WBC < 1 /HPF (0-5) Urine Squamous Epithelial Cells None seen /hpf (<5) Urine Bacteria None seen /hpf (None Seen) Urine Glucose 3+ mg/dL (Normal) Test 08/15/24 15:53 D-Dimer, Quantitative 0.82 mg/L FEU (0.0-0.49) Lactic Acid Level 1.6 mmol/L (0.4-2.0) Other Laboratory Tests 08/18/24 06:06 Brief Hx & Hospital Course: History of Present Illness This is a 59-year-old female with significant past medical history which include DM, HTN, HLD, CDK 3 Afib, HIV, and neuropathy presented to the ED with bilateral foot wound. According to the patient, over the past 3 weeks, she has noticed a wound on her left big toe that has been causing her an excruciating whenever she wears her shoes or walks on it. She also has another wound on the right right heel. Patient mentioned that she is sort of homeless. She lives in a hotel where she need to change location every 21 days. Because of this living arrangement, she has not been compliant with her medications. Patient is diabetic does no know her A1c. Patient has subjective fever and chills. She denies chest pain, nausea, vomiting or shortness of breaths. Patient also mentioned that on Sunday ( 08/12/2024) after taking her bath, she accidentally fell on the floor landing on her left side. But she did not hit her head. She complained of left should pain. Course of hospitalization: CT scans were performed of both feet. Patient also had MRI of both feet which found the following: PATIENT: FELICE COLE ACCT: [id number] UNIT: [id number] : 1965 LOC: CENTRAL ROOM / BED: 0215 / A AGE / SEX: 59 / F ADM STATUS: ADM IN SERVICE 29 ORDERING PHYSICIAN: JUAN BILLY DPM PROCEDURE(s): RFTMR - MRI R FOOT WO CONTRAST REASON: R/O OSTEO ORDER NUMBER(s): [id number], ACCESSION NUMBER(s): [id number] EXAMINATION: MRI MRI R FOOT WO CONTRAST TECHNIQUE: MRI of the right foot was performed. The following sequences were obtained without contrast: Sagittal PD Sagittal T2 FS Coronal T1 Coronal PD FS Axial PD FS Oblique ACL view HISTORY: R/O OSTEO COMPARISON: CT CT R FOOT WO CONTRAST on DOS: 08/16/24, CT CT L FOOT WO CONTRAST on DOS: 08/16/24 FINDINGS: Markedly abnormal signal is seen in the distal tibial diaphyseal shaft. STIR sagittal images demonstrate areas of both increased and decreased signal, best seen on image 11, series 8. The CT study of 08/16/2024 does not demonstrate cortical destructive changes of the distal tibial diaphyseal shaft. Findings are most likely related to a bone infarct moderately large. There is a 1 cm cyst in the calcaneus, image 9, series 8. There is mild thinning of the cartilage overlying the talar dome . 2 mm subchondral degenerative cystic changes seen of the talar dome slightly medial to midline, image 13, series 8. Mild edematous changes of the tarsal tunnel as well as soft tissues plantar and medial consistent with cellulitis. There is an accessory ossicle adjacent to the cuboid. No fracture identified. Retrocalcaneal enthesopathy noted consistent with the prior CT. Degenerative changes of the posterior talocalcaneal joint with marginal osteophytosis. No osteomyelitis. No soft tissue abscess. 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 Degenerative changes consistent with prior CT No osteomyelitis Cellulitis No soft tissue abscess ATED BY: JABARI MARTINEZ MD DICTATED DATE/TIME: 08/17/241423 SIGNED BY: JABARI MARTINEZ MD SIGNED DATE/TIME: 08/17/241423 PATIENT: FELICE COLE ACCT: [id number] UNIT: [id number] : 1965 LOC: CENTRAL ROOM / BED: [facility] / A AGE / SEX: 59 / F ADM STATUS: ADM IN SERVICE 29 ORDERING PHYSICIAN: JUAN BILLY DPM PROCEDURE(s): LFTMR - MRI L FOOT WO CONTRAST REASON: R/O OSTEO ORDER NUMBER(s): [id number], ACCESSION NUMBER(s): [id number] EXAMINATION: MRI MRI L FOOT WO CONTRAST TECHNIQUE: MRI of the left foot was performed. The following sequences were obtained without contrast: Axial PD Axial PD FS Coronal T1 Coronal PD FS Coronal Oblique PD FS Sagittal T1 Sagittal T2 HISTORY: R/O OSTEO COMPARISON: CT CT R FOOT WO CONTRAST on DOS: 08/16/24, CT CT L FOOT WO CONTRAST on DOS: 08/16/24 FINDINGS: 1.4 cm cyst seen in the calcaneus. Old fracture seen of the base of the 3rd proximal phalanx with intra-articular extension into the metatarsophalangeal joint better visualized on the previous CT study. Abnormal signal seen in the distal tibial diaphyseal shaft consistent with old bone infarct. Edematous changes seen in the plantar soft tissues compatible with cellulitis. No osteomyelitis. No acute fracture. No soft tissue abscess. Moderate degenerative changes seen of the midfoot. IMPRESSION: Cellulitis No osteomyelitis Old fracture seen of the 3rd proximal phalanx consistent with prior CT study. Moderate degenerative changes of the midfoot. ATED BY: JABARI MARTINEZ MD DICTATED DATE/TIME: 08/17/241454 SIGNED BY: JABARI MARTINEZ MD SIGNED DATE/TIME: 08/17/241454 Podiatry consultation was obtained. Recommendations reviewed. Given the patient was able to ambulate without any difficulty for the use of DME, patient will be discharged home. She was instructed to be more adherent to controlling her blood sugars, which she states is difficult given that she was homeless. Patient was state that she was living in a motel. Patient was agreeable to be discharged home. Antibiotics will be held given recommendations by Podiatry. She was instructed to off propofol monitor feet, provide follow up proper foot care as well as footing. She will continue all previous home medications. Appointment sodium made for the discharge Clinic as well as with Podiatry as an outpatient in 1-2 weeks. She was agreeable with discharge plan. All questions answered. Physical examination General: Alert and Oriented x3. No acute distress. Well-nourished. Eyes: EOMI. Anicteric. HENT: Moist mucous membranes. Lungs: Clear to auscultation bilaterally. No accessory muscle use. Cardiovascular: Regular rate and rhythm. No murmur. No JVD. Abdomen: Soft, non-tender and non-distended. No palpable masses. Extremities: No edema. Non-tender. Skin: No rashes or lesions. Warm. Neurologic: No focal neurological deficits. CN II-XII grossly intact, but not individually tested. Psychiatric: Cooperative. Appropriate mood and affect. Total time spent with patient discussing and formulating plan of care: 35 minutes. This medical document was created using an electronic medical record system with [employer] system. Although this document has been carefully reviewed, there may still be some phonetic and typographical errors. These areas are purely typographical due to imperfections of the software programs, and do not reflect any compromise in the patient's medical care. Consults/Reason for consult Podiatry: Right distal tibial infarct. Bilateral foot pain. Condition at Discharge: Guarded Final Diagnosis/Problems List Bilateral foot pain with cellulitis Secondary diagnosis: -right foot distal tibial infarct -HIV -obesity -AFib -diabetes mellitus -diabetic nephropathy Discharge Disposition: Home Discharge Instruct/Medications Diet: Consistent carbohydrate Activity: No Restrictions, As Tolerated Follow Up/Referral: Discharge Clinic in one week Podiatry clinic in two weeks Medications: Continue all previous home medications 36 Discharge Statement: "Patient was advised to return to the ER or call 911 if any headaches, dizziness, shortness of breath, chest pain, abdominal pain, bleeding, fevers, or worsening of medical condition. Patient was counseled about treatment plan, medications, possible side effects, patientverbalized understanding. All questions were answered to the best of my ability. This discharge took greater then 30 minutes in planning, reviewing documentation, counseling the patient, and discussing with other team members." ASSESSMENT ASSESSMENT Assessment Bilateral foot pain with cellulitis Date of Service: Aug 19, 2024 Billing Provider: RAINER DIAZ NP Common Visit Codes: 63961-YMA/OBS DISCH DAY >30min Secondary Visit Codes: 57771-[id number] CARE PLAN 30 MINUTES RAINER DIAZ NP Aug 19, 2024 10:58
[2024-08-19 12:35] VITALS: BP 109/57; TEMP 36.9
[2024-08-19 13:00] VITALS: BP 138/72; PULSE 63; RESP 18; TEMP 98.2; O2SAT 97
[2024-08-20 08:08] LABS: HIV 1 Antibody Reactive (Non Reactive); HIV 2 Antibody Non Reactive (Non Reactive); INTERPRETATION HIV-1 Positive (.)
== END 2024-08-19 13:35 | disposition home or self-care (01) | DRG 380 ==
LOC: ER 14:37 → OVERFLOW 23:37 → CENTRAL 08-16 01:26
PROVIDERS: ADMIT Nurse Practitioner Acute Care; ATTEND Nurse Practitioner Acute Care
DX: E11.621 Type 2 diabetes mellitus with foot ulcer (principal); L97.529 Non-pressure chronic ulcer of other part of left foot with unspecified severity; L97.519 Non-pressure chronic ulcer of other part of right foot with unspecified severity; N17.0 Acute kidney failure with tubular necrosis; D69.6 Thrombocytopenia, unspecified; I24.9 Acute ischemic heart disease, unspecified; I50.30 Unspecified diastolic (congestive) heart failure; D63.1 Anemia in chronic kidney disease; L03.115 Cellulitis of right lower limb; N18.30 Chronic kidney disease, stage 3 unspecified; E11.22 Type 2 diabetes mellitus with diabetic chronic kidney disease; D50.9 Iron deficiency anemia, unspecified; M62.82 Rhabdomyolysis; E11.40 Type 2 diabetes mellitus with diabetic neuropathy, unspecified; E78.5 Hyperlipidemia, unspecified; I12.9 Hypertensive chronic kidney disease with stage 1 through stage 4 chronic kidney disease, or unspecified chronic kidney disease; I48.91 Unspecified atrial fibrillation; I87.8 Other specified disorders of veins; S91.301A Unspecified open wound, right foot, initial encounter; S91.302A Unspecified open wound, left foot, initial encounter; X58.XXXA Exposure to other specified factors, initial encounter; L03.116 Cellulitis of left lower limb; M13.0 Polyarthritis, unspecified; E66.9 Obesity, unspecified; S92.512A Displaced fracture of proximal phalanx of left lesser toe(s), initial encounter for closed fracture; I25.10 Atherosclerotic heart disease of native coronary artery without angina pectoris; Z88.0 Allergy status to penicillin; Z88.8 Allergy status to other drugs, medicaments and biological substances; Z79.899 Other long term (current) drug therapy; Z79.1 Long term (current) use of non-steroidal anti-inflammatories (NSAID); Z79.891 Long term (current) use of opiate analgesic; Z79.82 Long term (current) use of aspirin; Z79.01 Long term (current) use of anticoagulants; Z90.49 Acquired absence of other specified parts of digestive tract; Z59.01 Sheltered homelessness; Z91.148 Patient's other noncompliance with medication regimen for other reason; Z83.3 Family history of diabetes mellitus; Y93.89 Activity, other specified; Y92.89 Other specified places as the place of occurrence of the external cause; Y99.8 Other external cause status
CPT/HCPCS: 36415; 71045; 73700; 73718; 80053; 80202; 81001; 82550; 82607; 82962; 83605; 83615; 84484; 85025; 85379; 85610; 85652; 86141; 86703; 87040; 87081; 87389; 93005; 93925; 97110; 97116; 97163; 97530; G0378; J1815; J3490

== ENCOUNTER 2024-09-16 15:22 | Emergency (ER) | payer MEDICAID ==
[~2024-09-16] VITALS: Ht 162.6 cm; Wt 98.4 kg
[~2024-09-16 15:22] MED LIST changes: -CETI10TA2 PO; -DAPA1TAB4 PO
[2024-09-16 16:00] VITALS: BP 120/54; PULSE 102; RESP 16; TEMP 97.8; O2SAT 97
--- NOTE | 2024-09-16 16:24 | ED.PDOC ---
History of Present Illness(SKN HPI Comments 59-year-old female presents to the ER with prior history of HTN, DM, HIV, AFIB, high lipids, neuropathy, and stage III-CKF; SHx of cholecystectomy, hernia repair which all may be associated to the chief complaint of contusion on the left biceps. Patient uses a walker, and reports that she fell in the tub three weeks ago and she left a contusion on her left biceps. Chief Complaint: Fall Injury Time Seen by MD: 16:30 Primary Care Provider: [facility] History of Present Illness: Nurses Notes, Medications, Allergies Allergies: Coded Allergies: Loperamide (Verified Allergy, Severe, 08/13/23) Nystatin (Verified Allergy, Severe, 08/13/23) Penicillins (Verified Allergy, Severe, 08/13/23) Home Meds Active Scripts Flecainide Acetate (TAMBOCOR TABLET) 50 Mg Tb, 50 MG PO Q12HR for 30 Days, #60 TAB Prov:RAINER DIAZ GEOLOGICAL ENGINEER 08/15/23 Reported Medications Amiodarone HCl (Amiodarone HCl) 200 Mg Tab, 1 TAB PO BID for 90 Days, #180 08/18/24 Insulin Glargine (Basaglar Kwikpen) 100 Unit/Ml Inj, 100 UNITS SC BID for 30 Days, #60 08/18/24 Insulin Lispro (Insulin Lispro Kwikpen) 100 Unit/Ml Inj, 10 UNITS SC DAILY for 100 Days, #15 08/18/24 Cetirizine HCl (Cetirizine Hydrochloride) 10 Mg Tab, 1 TAB PO DAILY for 90 Days, #90 08/18/24 Dapagliflozin Propanediol (Dapagliflozin Propanediol) 5 Mg Tab, 1 TAB PO DAILY for 100 Days, #100 08/18/24 Ferrous Sulfate (Ferosul) 325 Mg Tab, 1 TAB PO DAILY for anemia 06/08/24 Xyzrosne-Krqpscilpfwz-Gygfixnd (Triumeq 600-50-300 mg) 1 Tab Tab, 1 TAB PO DAILY for 30 Days, #30 06/08/24 Sitagliptin Phosphate (Januvia) 100 Mg Tab, 1 DAILY for 90 Days, #90 06/08/24 Metoprolol Tartrate (Metoprolol Tartrate) 25 Mg Tab, 25 MG PO DAILY for 90 Days, #90 06/06/24 Fenofibrate (FENOFIBRATE) 145 Mg Tab, 1 TAB PO DAILY for 90 Days, #90 06/06/24 Potassium Chloride (POTASSIUM CHLORIDE CR) 10 Meq Tb, 1 TAB PO DAILY for 30 Days, #30 06/06/24 Cyclobenzaprine HCl (Cyclobenzaprine Hydrochlo) 10 Mg Tab, 1 TAB PO BID PRN for PAIN FOR MUSCLE SPASMS for 30 Days, #15 08/13/23 Famotidine (Famotidine) 20 Mg Tab, 1 TAB PO BID PRN for ACID REFLUX AND ABDOMINAL PAIN for 90 Days, #180 08/13/23 Furosemide (Furosemide) 40 Mg Tab, 1 TAB PO DAILY for 90 Days, #90 08/13/23 Hydrocodone-Acetaminophen (Hydrocodone/Acetaminophen 5-325 mg) 1 Tab Tab, 2 TAB PO BID 08/13/23 Pregabalin (Pregabalin) 200 Mg Cap, 1 CAP PO TID for 30 Days, #90 08/13/23 Lisinopril (Lisinopril) 2.5 Mg Tab, 1 TAB PO DAILY for 90 Days, #90 08/13/23 Apixaban Base (ELIQUIS) 5 Mg Tab, 1 TAB PO BID for 45 Days, #90 08/13/23 Aspirin (Aspirin) 81 Mg Chw, 1 TAB PO DAILY for 90 Days, #90 08/13/23 Atorvastatin Calcium (ATORVASTATIN CALCIUM) 40 Mg Tab, 1 TAB PO DAILY for 90 Days, #90 08/13/23 Information Source: Patient Mode of Arrival: Ambulatory Severity: Moderate Timing: Days Duration: Since onset, Days Prehospital treatment: None Location: Arm (Left biceps) Mechanism: Preceding Wound Object: None Condition of Object: None Retained Foreign Body: No Wound Type: Other (Contusion) History of: HIV Associated Signs and Symptoms: Numbness Past Medical History PAST MEDICAL HISTORY: AFIB, CKF (Stage III), DM, High Lipids, HIV, HTN Past Medical History (Other): Neuropathy Surgical History: Cholecystectomy, Hernia Repair [place] History: No Pertinent [place] History Family History Family History: Reviewed,noncontributory to illness, Unknown, Family hx of heart shanta Social History Smoker: Cigarettes Alcohol: Denies ETOH Use Drugs: Denies Drug Use Lives In: Home Constitutional: denies: chills, diaphoresis, fatigue, fever, malaise, sweats, weakness, others EENTM: denies: blurred vision, double vision, ear bleeding, ear discharge, ear drainage, ear pain, ear ringing, eye pain, eye redness, hearing loss, mouth pain, mouth swelling, nasal discharge, nose bleeding, nose congestion, nose pain, photophobia, tearing, throat pain, throat swelling, voice changes, others Respiratory: denies: cough, hemoptysis, orthopnea, SOB at rest, shortness of breath, SOB with excertion, stridor, wheezing, others Cardiovascular: denies: chest pain, dizzy spells, diaphoresis, Dyspnea on exertion, edema, irregular heart beat, left arm pain, lightheadedness, palpitations, PND, syncope, others Gastrointestinal: denies: abdomen distended, abdominal pain, blood streaked bowels, constipated, diarrhea, dysphagia, difficulty swallowing, hematemesis, melena, nausea, poor appetite, poor fluid intake, rectal bleeding, rectal pain, vomiting, others Genitourinary: denies: abnormal vagina bleeding, burning, dyspareunia, dysuria, flank pain, frequency, hematuria, incontinence, pain, , vagina discharge, urgency, others Neurological: denies: dizziness, fainting, headache, left sided numbness, left sided weakness, numbness, paresthesia, pre-existing deficit, right sided numbness, right sided weakness, seizure, speech problems, tingling, tremors, weakness, others Musculoskeletal: denies: back pain, gout, joint pain, joint swelling, muscle pain, muscle stiffness, neck pain, others Integumetry: reports: bruises, change in color (Purple in color); denies: change in hair/nails, dryness, laceration, lesions, lumps, rash, wounds, others Allergic/Immunocompromised: denies: Difficulty Healing, Frequent Infections, Hives, Itching, others Hematologic/Lymphatic: denies: anemia, blood clots, easy bleeding, easy bruising, swollen glands, others Endocrine: denies: excessive hunger, excessive sweating, excessive thirst, excessive urination, flushing, intolerance to cold, intolerance to heat, unexplained weight gain, unexplained weight loss, others Psychiatric: denies: anxiety, bipolar disorder, depression, hopeless, panic disorder, schizophrenia, sleepless, suicidal, others All Other Systems: Reviewed and Negative Physical Exam General Appearance: No Apparent Distress, Normal HEENT: Normal ENT Inspection, Pharynx Normal, TMs Normal Neck: Full Range of Motion, Non-Tender, Normal, Normal Inspection Respiratory: Chest Non-Tender, Lungs Clear, No Accessory Muscle Use, No Respiratory Distress, Normal Breath Sounds Cardiovascular: No Edema, No JVD, No Murmur, No Gallop, Normal Peripheral Pulses, Regular Rate/Rhythm Breast Exam: Deferred Gastrointestinal: No Organomegaly, Non Tender, No Pulsatile Mass, Normal Bowel Sounds, Soft Genitalia: Deferred Pelvic: Deferred Rectal: Deferred Extremities: No calf tenderness, Normal capillary refill, Normal inspection, Normal range of motion, Non-tender, No pedal edema Musculoskeletal : Apperance: Normal Neurologic: Alert, director account management II-XII nml as Tested, No Motor Deficits, Normal Affect, Normal Mood, No Sensory Deficits Cerebellar Function: Normal Reflexes: Normal Skin: Dry, Normal Color, Warm Lymphatic: No Adenopathy Was a procedure done? Was a procedure done?: No Images 1 - 3 x 3 contusion. No swelling. No TTP. Full ROM of the shoulder and elbow. Differential Diagnosis (INTG) Differential Diagnosis: Contusion X-Ray, Labs, Meds, VS Vital Signs Date Time Temp Pulse Resp B/P (MAP) Pulse Ox O2 Delivery O2 Flow Rate FiO2 09/16/24 16:00 97.8 102 17 120/54 (76) 97 97.8 09/16/24 16:00 102 16 97 Room Air 09/16/24 15:47 98.0 75 18 128/67 (87) 97 98.0 X-Ray, Labs, Meds, VS Comment 59-year-old female presents to the ER with prior history of HTN, DM, HIV, AFIB, high lipids, neuropathy, and stage III-CKF; SHx of cholecystectomy, hernia repair which all may be associated to the chief complaint of contusion on the left biceps. Patient arrives alert and oriented, ABC's intact, afebrile, vital signs stable, saturating well in room air After ROS and physical examination, differentials considered but not limited to: Contusion, sprain Reassurance provided. Return precautions discussed Additional MDM Review of External, Non-ED records: External records reviewed. August 15, 2024 Discussion with independent historian (EMS, family) history obtained from the patient at bedside Chronic conditions affecting care: HTN, HIV, AFib, high lipids, DM, CKF of stage III, neuropathy, cholecystectomy, hernia repair Social determinants of health affecting care: Tobacco use Consideration of admission (observation or admission): I considered escalation of care to admission for this patient, however given the reassuring workup, the patient is safe for outpatient management. Discussion with the Radiology: No Time of 1ST Reevaluation: 16:15 Reevaluation 1ST: Improved Patient Education/Counseling: Diagnosis, Treatment Family Education/Counseling: Diagnosis, Treatment Departure 1 Departure Time of Disposition: 16:24 Impression: Primary Impression: Contusion of upper arm, left Qualified Codes: S40.022A - Contusion of left upper arm, initial encounter Additional Impression: Encounter for smoking cessation counseling Disposition: HOME / SELF CARE / HOMELESS Condition: Stable Critical Care Note Critical Care Time?: No Stability Stability form required: No Heart Score Heart Score: Heart Score Response (Comments) Value History N/A 0 EKG N/A 0 Age N/A 0 Risk Factors N/A 0 Troponin N/A 0 Total 0 I personally scribed for BRANDON GOLDMAN NP ([facility]) on 09/16/24 at 16:24. Electronically submitted by Bob Almeida ([employer]). I personally scribed for BRANDON GOLDMAN NP (GRECIAOMA) on 09/16/24 at 16:33. Electronically submitted by Bob Almeida ([employer]). BRANDON GOLDMAN NP Sep 16, 2024 16:24
== END 2024-09-16 16:30 | disposition home or self-care (01) ==
LOC: ER 15:26
DX: S40.022A Contusion of left upper arm, initial encounter (principal); I12.9 Hypertensive chronic kidney disease with stage 1 through stage 4 chronic kidney disease, or unspecified chronic kidney disease; E11.22 Type 2 diabetes mellitus with diabetic chronic kidney disease; N18.30 Chronic kidney disease, stage 3 unspecified; I48.91 Unspecified atrial fibrillation; F17.210 Nicotine dependence, cigarettes, uncomplicated; Z98.890 Other specified postprocedural states; Z90.49 Acquired absence of other specified parts of digestive tract; Z88.0 Allergy status to penicillin; Z71.6 Tobacco abuse counseling; Z79.899 Other long term (current) drug therapy; Z88.1 Allergy status to other antibiotic agents; Z79.84 Long term (current) use of oral hypoglycemic drugs; Z79.82 Long term (current) use of aspirin; Z79.4 Long term (current) use of insulin; Z79.01 Long term (current) use of anticoagulants; W18.2XXA Fall in (into) shower or empty bathtub, initial encounter; Y93.89 Activity, other specified; Y92.89 Other specified places as the place of occurrence of the external cause; Y99.8 Other external cause status

== ENCOUNTER 2024-09-23 18:26 | Emergency (ER) | payer MEDICAID ==
[~2024-09-23] VITALS: Ht 162.6 cm; Wt 81.8 kg
--- NOTE | 2024-09-23 19:20 | ED.PDOC ---
History of Present Illness HPI Comments 59-year-old female patient ARIC came in due to tremors x today. Patient reports she has feeling "shakey" all day and does "not feel like herself". No visible tremors during triage and assessment. Patient was seen at her primary care provider's office yesterday for itchy skin. Chief Complaint: Tremors Time Seen by MD: 18:57 Primary Care Provider: UNKNOWN Reviewed Notes: Medications, Allergies Allergies: Coded Allergies: Loperamide (Verified Allergy, Severe, 08/13/23) Nystatin (Verified Allergy, Severe, 08/13/23) Penicillins (Verified Allergy, Severe, 08/13/23) Diphenhydramine (Verified Allergy, Unknown, 09/23/24) Home Meds Active Scripts Flecainide Acetate (TAMBOCOR TABLET) 50 Mg Tb, 50 MG PO Q12HR for 30 Days, #60 TAB Prov:RAINER DIAZ [employer]ATE 08/15/23 Reported Medications Amiodarone HCl (Amiodarone HCl) 200 Mg Tab, 1 TAB PO BID for 90 Days, #180 08/18/24 Insulin Glargine (Basaglar Kwikpen) 100 Unit/Ml Inj, 100 UNITS SC BID for 30 Days, #60 08/18/24 Insulin Lispro (Insulin Lispro Kwikpen) 100 Unit/Ml Inj, 10 UNITS SC DAILY for 100 Days, #15 08/18/24 Cetirizine HCl (Cetirizine Hydrochloride) 10 Mg Tab, 1 TAB PO DAILY for 90 Days, #90 08/18/24 Dapagliflozin Propanediol (Dapagliflozin Propanediol) 5 Mg Tab, 1 TAB PO DAILY for 100 Days, #100 08/18/24 Ferrous Sulfate (Ferosul) 325 Mg Tab, 1 TAB PO DAILY for anemia 06/08/24 Xzzibnyy-Riytfunoeurg-Ailwtwnm (Triumeq 600-50-300 mg) 1 Tab Tab, 1 TAB PO DAILY for 30 Days, #30 06/08/24 Sitagliptin Phosphate (Januvia) 100 Mg Tab, 1 DAILY for 90 Days, #90 06/08/24 Metoprolol Tartrate (Metoprolol Tartrate) 25 Mg Tab, 25 MG PO DAILY for 90 Days, #90 06/06/24 Fenofibrate (FENOFIBRATE) 145 Mg Tab, 1 TAB PO DAILY for 90 Days, #90 06/06/24 Potassium Chloride (POTASSIUM CHLORIDE CR) 10 Meq Tb, 1 TAB PO DAILY for 30 Days, #30 06/06/24 Cyclobenzaprine HCl (Cyclobenzaprine Hydrochlo) 10 Mg Tab, 1 TAB PO BID PRN for PAIN FOR MUSCLE SPASMS for 30 Days, #15 08/13/23 Famotidine (Famotidine) 20 Mg Tab, 1 TAB PO BID PRN for ACID REFLUX AND ABDOMINAL PAIN for 90 Days, #180 08/13/23 Furosemide (Furosemide) 40 Mg Tab, 1 TAB PO DAILY for 90 Days, #90 08/13/23 Hydrocodone-Acetaminophen (Hydrocodone/Acetaminophen 5-325 mg) 1 Tab Tab, 2 TAB PO BID 08/13/23 Pregabalin (Pregabalin) 200 Mg Cap, 1 CAP PO TID for 30 Days, #90 08/13/23 Lisinopril (Lisinopril) 2.5 Mg Tab, 1 TAB PO DAILY for 90 Days, #90 08/13/23 Apixaban Base (ELIQUIS) 5 Mg Tab, 1 TAB PO BID for 45 Days, #90 08/13/23 Aspirin (Aspirin) 81 Mg Chw, 1 TAB PO DAILY for 90 Days, #90 08/13/23 Atorvastatin Calcium (ATORVASTATIN CALCIUM) 40 Mg Tab, 1 TAB PO DAILY for 90 Days, #90 08/13/23 Information Source: Patient Mode of Arrival: EMS Severity: Moderate Timing: Hours Duration: Since onset Prehospital treatment: Senior Vice President Vital Signs Vital Signs Date Time Temp Pulse Resp B/P (MAP) Pulse Ox O2 Delivery O2 Flow Rate FiO2 09/24/24 00:07 71 20 97 Room Air 09/23/24 23:10 99.3 106/60 (75) 99.3 Physical Exam General: Awake, alert and oriented. No acute distress. Skin: Skin in warm, dry and intact. Appropriate color for ethnicity. HEENT: The head is normocephalic and atraumatic. Conjunctivae are clear without exudates or hemorrhage. Sclera is non-icteric. EOM are intact. No signs of nystagmus. Eyelids are normal in appearance without swelling or lesions. Oral mucosa is pink and moist Neck: The neck is supple with normal range of motion. No JVD. Cardiac: Heart rate and rhythm are normal. No murmurs, gallops, or rubs are auscultated. Respiratory: No signs of respiratory distress. Lung sounds are clear in all lobes bilaterally without rales, rhonchi, or wheezes. Abdominal: Abdomen is soft, non-tender without distention. Bowel sounds are present and normoactive in all four quadrants. Extremities: Upper and lower extremities are atraumatic in appearance without deformity or edema. Neurological: The patient is awake, alert and oriented to person, place, and time with normal speech. Speech is clear. There is no facial asymmetry. Normal pusvpf-ch-ansh test. No upper or lower extremity drift. Psychiatric: Appropriate mood and affect. Good judgement and insight. Review of Systems: REVIEW OF SYSTEMS: Positive fever, no chills, or fatigue HEENT: No sore throat, no earache, no congestion, no neck pain. Chronic dysphagia, positive rhinorrhea Cardiac: Positive chest pain. Positive palpitations. Lungs: Positive shortness of breath, no cough. GI: Positive nausea, no vomiting, no diarrhea, no positive constipation, positive abdominal pain : No dysuria, frequency, or urgency. No hematuria. Musculoskeletal: Positive joint pain , cause joint swelling, no extremity edema. Positive body aches, positive back pain Skin: No rash, positive itching. 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 Was a procedure done?: No EKG EKG : Pulse Rate (adult): 76 [place]: Normal Cardiac Rhythm: NSR Block: None Hypertrophy: RVH ST: Normal Comments No STEMI Differential Dx Considerations may include: Electrolyte imbalance, essential tremor, dehydration, urinary tract infection, other infection, brain mass, other X-Ray, Labs, Meds, VS Vital Signs Date Time Temp Pulse Resp B/P (MAP) Pulse Ox O2 Delivery O2 Flow Rate FiO2 09/24/24 00:07 71 20 97 Room Air 09/23/24 23:10 99.3 71 16 106/60 (75) 97 99.3 09/23/24 22:32 76 09/23/24 22:10 76 09/23/24 18:39 100.0 78 16 130/79 (96) 99 100.0 Lab Test 09/24/24 02:23 09/23/24 23:33 09/23/24 20:50 09/23/24 19:56 Range/Units Urine Color Light-yellow Yellow Urine Clarity Clear Clear Urine pH 5.5 5.0-9.0 Urine Specific [place] 1.023 1.001-1.035 Urine Protein Trace H Negative Urine Ketones Negative Negative Urine Blood Negative Negative /uL Urine Nitrite Negative Negative Urine Bilirubin Negative Negative Urine Urobilinogen Normal Negative mg/dL Urine Leukocyte Esterase Negative Negative /uL Urine RBC 1 0 - 4 /hpf Urine Microscopic WBC 2 0-5 /HPF Urine Squamous Epithelial Cells Few <5 /hpf Urine Bacteria Few H None Seen /hpf Urine Glucose 4+ H Normal mg/dL Urine Opiates Screen Neg NEGATIVE Urine Fentanyl Screen Neg NEGATIVE Urine Barbiturates Screen Neg NEGATIVE Urine Phencyclidine Screen Neg NEGATIVE Urine Amphetamines Screen Neg NEGATIVE Urine Benzodiazepines Screen Neg NEGATIVE Urine Cocaine Screen Neg NEGATIVE Urine Cannabinoids Screen Neg NEGATIVE Influenza Type A Antigen Negative Negative Influenza Type B Antigen Negative Negative SARS-CoV-2 Antigen (Rapid) Negative NEGATIVE Troponin I High Sensitivity 4 5 </=34 ng/L White Blood Count 7.2 4.4-10.8 10^3/uL Red Blood Count 5.23 H 4.0-5.20 10^6/uL Hemoglobin 12.7 12.2-16.2 g/dL Hematocrit 39.0 36.0-46.0 % Mean Corpuscular Volume 74.5 L 80.0-100.0 fL Mean Corpuscular Hemoglobin 24.3 L 28.0-32.0 pg Mean Corpuscular Hemoglobin Concent 32.6 32.0-36.0 g/dL Red Cell Distribution Width 17.6 H 11.8-14.3 % Platelet Count 179 140-450 10^3/uL Mean Platelet Volume 9.0 6.9-10.8 fL Neutrophils (%) (Auto) 71.4 37.0-80.0 % Lymphocytes (%) (Auto) 10.9 10.0-50.0 % Monocytes (%) (Auto) 14.5 H 0.0-12.0 % Eosinophils (%) (Auto) 1.9 0.0-7.0 % Basophils (%) (Auto) 1.3 0.0-2.0 % Neutrophils # (Auto) 5.1 1.6-8.6 10 ^3/uL Lymphocytes # (Auto) 0.8 0.4-5.4 10 ^3/uL Monocytes # (Auto) 1.0 0-1.3 10 ^3/uL Eosinophils # (Auto) 0.1 0-0.8 10 ^3/uL Basophils # (Auto) 0.1 0-0.2 10 ^3/uL Nucleated Red Blood Cells 0.2 % Sodium Level 140 136-145 mmol/L Potassium Level 4.3 3.5-5.1 mmol/L Chloride Level 109 H 98-107 mmol/L Carbon Dioxide Level 26 20-31 mmol/L Anion Gap 5 5-15 Blood Urea Nitrogen 20 9-23 mg/dL Creatinine 1.48 H 0.550-1.02 mg/dL Glomerular Filtration Rate Calc 40 >90 mL/min BUN/Creatinine Ratio 13.5 10.0-20.0 Serum Glucose 182 H 74-106 mg/dL Lactic Acid Level 1.9 0.4-2.0 mmol/L Calcium Level 10.1 8.7-10.4 mg/dL Magnesium Level 2.4 1.6-2.6 mg/dL Total Bilirubin 0.3 0.2-1.0 mg/dL Aspartate Amino Transferase (AST) 50 H 13-40 U/L Alanine Aminotransferase (ALT) 32 7-40 U/L Alkaline Phosphatase 72 46-116 U/L B-Type Natriuretic Peptide 53.01 0-100 pg/mL Total Protein 7.3 5.7-8.2 g/dL Albumin 4.5 3.2-4.8 g/dL Lipase 86 H 12-53 U/L Thyroid Stimulating Hormone (TSH) 1.15 0.55-4.78 uIU/mL Plasma/Serum Blood Alcohol 3.7 <10 mg/dL Current Medications Medications (Trade) Dose Ordered Sig/Uyen Route Start Time Stop Time Status Last Admin Sodium Chloride 1,000 ml @ 1,000 mls/hr Q1H ONCE IV 09/23/24 19:30 09/23/24 20:29 DC 09/24/24 00:45 PATIENT: KELSEYFELICE ACCT: [id number] UNIT: [id number] : 1965 LOC: ER ROOM / BED: / AGE / SEX: 59 / F ADM STATUS: REG ER SERVICE 18 ORDERING PHYSICIAN: DESIRAE WAYNE MD PROCEDURE(s): CXR1 - CHEST XRAY 1 VIEW REASON: Chest pain, shortness of breath ORDER NUMBER(s): [id number], ACCESSION NUMBER(s): [id number] EXAM: XY CHEST XRAY 1 VIEW REASON FOR EXAM: Chest pain, shortness of breath TECHNIQUE: 1 view of the chest COMPARISON: XY CHEST XRAY 1 VIEW on DOS: 08/16/24 FINDINGS/IMPRESSION: LUNGS: No pleural effusion, consolidation, or pneumothorax MEDIASTINUM: Unremarkable BONES: No acute osseous abnormality OTHER: None ATED BY: MELISSA MCKINLEY MD DICTATED DATE/TIME: 09/23/242035 SIGNED BY: MELISSA MCKINLEY MD SIGNED DATE/TIME: 09/23/242035 CC: PATIENT: FELICE COLE ACCT: [id number] UNIT: [id number] : 1965 LOC: ER ROOM / BED: / AGE / SEX: 59 / F ADM STATUS: REG ER SERVICE 18 ORDERING PHYSICIAN: DESIRAE WAYNE MD PROCEDURE(s): HWOCT - HEAD WITHOUT CONTRAST REASON: Tremor, headache ORDER NUMBER(s): [id number], ACCESSION NUMBER(s): [id number] CT HEAD WITHOUT CONTRAST INDICATION: Tremor, headache COMPARISON: CT HEAD WITHOUT CONTRAST on DOS: 06/06/24 TECHNIQUE: CT of the head without intravenous contrast. RADIATION DOSE: CTDIvol: 58.55 mGy, DLP: 1036.68 mGy*cm FINDINGS: There is no evidence of hemorrhage, acute infarct, extra-axial collection, mass effect, midline shift, herniation or hydrocephalus. Very small old infract noted in right posteromedial cerebellum and mild chronic white matter microvascular ischemic change. The ventricles, sulci and cisterns are normal. T he jackson-white differentiation is intact. Visualized paranasal sinuses and mastoid air cells are clear. Soft tissues and osseous structures are unremarkable. IMPRESSION: No acute intracranial abnormality identified. No appreciable change compared to the prior CT scan from May 2024. ATED BY: JASON RICHARDSON MD DICTATED DATE/TIME: 09/23/242013 SIGNED BY: JASON RICHARDSON MD SIGNED DATE/TIME: 09/23/242013 CC: Time of 1ST Reevaluation: 19:27 Reevaluation 1ST: Unchanged Patient Education/Counseling: Need For Follow Up Family Education/Counseling: No Family Present Departure 1 Departure Time of Disposition: 21:47 Impression: Primary Impression: Occasional tremors Disposition: HOME / SELF CARE / HOMELESS Condition: Stable Additional Instructions: ED DISCHARGE INSTRUCTIONS Instructions: Please read all instructions provided in this packet carefully. Although you have been discharged from the Emergency Department, this does not mean that you have a "clean bill of health". No definitive diagnosis for your symptoms has been made today. It is possible that you are in the process of developing a serious illness. This is why you must return to the ED without fail if any new or worsening symptoms (especially if your symptoms include chest pain, trouble breathing, abdominal pain, fever, headache, confusion, trouble seeing, or trouble walking) It is also very important that you see a primary care doctor within the next 3-5 days to follow up. If you are unable to get an appointment, return to the ED for re-evaluation. Comments 59-year-old female who presented to the emergency department with tremors and headache. Patient is well-appearing, nontoxic. No focal neuro deficit, no tremor noted during the ED observation. Patient's symptoms improved during the ED observation. Vital signs stable. Lab and imaging results reviewed and are not urgently actionable. Patient is felt stable for discharge home. Patient advised to follow up with primary care provider promptly and return to the emergency department with any new, worsening or concerning symptoms. - I reviewed the following notes from the pt's past medical encounters: 09/16/2024 for contusion of the arm The following tests were ordered, and results were reviewed by me: (See diagnostic results section) The following test were independently interpreted by me: EKG Additional information was gathered from interviewing the following independent historians: N/A I reviewed and agreed with the following test results read by other providers: N/A I discussed treatments and results with patient Decision regarding hospitalization or escalation of hospital level of care: Risks and benefits of admission for further treatment of patient's condition was considered however due to patient's stable condition patient will be discharged to follow up closely or return to care for worsening of condition or inability to follow up. Critical Care Note Critical Care Time?: No Stability Stability form required: No Heart Score Heart Score: Heart Score Response (Comments) Value History N/A 0 EKG N/A 0 Age N/A 0 Risk Factors N/A 0 Troponin N/A 0 Total 0 I personally scribed for DESIRAE WAYNE MD ([email or web address]) on 09/23/24 at 19:20. Electronically submitted by Tre Yoon ([email or web address]). I personally scribed for DESIRAE WAYNE MD ([email or web address]) on 09/23/24 at 22:32. Electronically submitted by Tre Yoon ([email or web address]). DESIRAE WAYNE MD September 23, 2024 19:20
[2024-09-23 20:05] LABS: Basophils # (auto) 0.1 10 ^3/uL (0-0.2); Basophils % (auto) 1.3 % (0.0-2.0); Eosinophils # (auto) 0.1 10 ^3/uL (0-0.8); Eosinophils % (auto) 1.9 % (0.0-7.0); Hemoglobin 12.7 g/dL (12.2-16.2); Lymphocytes # (auto) 0.8 10 ^3/uL (0.4-5.4); Lymphocytes % (auto) 10.9 % (10.0-50.0); Mean Corpuscular Hemoglobin 24.3 pg (28.0-32.0); Mean Corpuscular Hgb Conc. 32.6 g/dL (32.0-36.0); Mean Corpuscular Volume 74.5 fL (80.0-100.0); Monocytes % (auto) 14.5 % (0.0-12.0); Neutrophils # (auto) 5.1 10 ^3/uL (1.6-8.6); Neutrophils % (auto) 71.4 % (37.0-80.0); Nucleated Red Blood Cells % 0.2 %; Platelet Count (auto) 179 10^3/uL (140-450); Red Blood Cells 5.23 10^6/uL (4.0-5.20); Red Cell Distribution Width 17.6 % (11.8-14.3); White Blood Cell 7.2 10^3/uL (4.4-10.8)
--- NOTE | 2024-09-23 20:16 | DVH ---
CT HEAD WITHOUT CONTRAST INDICATION: Tremor, headache COMPARISON: CT HEAD WITHOUT CONTRAST on DOS: 06/06/24 TECHNIQUE: CT of the head without intravenous contrast. RADIATION DOSE: CTDIvol: 58.55 mGy, DLP: 1036.68 mGy*cm FINDINGS: There is no evidence of hemorrhage, acute infarct, extra-axial collection, mass effect, midline patrick ft, herniation or hydrocephalus. Very small old infract noted in right posteromedial cerebellum and m ild chronic white matter microvascular ischemic change. The ventricles, sulci and cisterns are normal . The jackson-white differentiation is intact. Visualized paranasal sinuses and mastoid air cells are cl ear. Soft tissues and osseous structures are unremarkable. IMPRESSION: No acute intracranial abnormality identified. No appreciable change compared to the prior CT scan from May 2024.
[2024-09-23 20:35] LABS: Alanine Aminotransferase 32 U/L (7-40); Albumin 4.5 g/dL (3.2-4.8); Alkaline Phosphatase 72 U/L (46-116); Anion Gap 5 (5-15); BUN/Creatinine Ratio 13.5 (10.0-20.0); Bilirubin, Total 0.3 mg/dL (0.2-1.0); Blood Alcohol 3.7 mg/dL (<10); Blood Urea Nitrogen 20 mg/dL (9-23); Calcium 10.1 mg/dL (8.7-10.4); Carbon Dioxide 26 mmol/L (20-31); Magnesium 2.4 mg/dL (1.6-2.6); Potassium 4.3 mmol/L (3.5-5.1); Sodium 140 mmol/L (136-145); Total Protein 7.3 g/dL (5.7-8.2)
--- NOTE | 2024-09-23 20:38 | DVH ---
EXAM: XY CHEST XRAY 1 VIEW REASON FOR EXAM: Chest pain, shortness of breath TECHNIQUE: 1 view of the chest COMPARISON: XY CHEST XRAY 1 VIEW on DOS: 08/16/24 FINDINGS/IMPRESSION: LUNGS: No pleural effusion, consolidation, or pneumothorax MEDIASTINUM: Unremarkable BONES: No acute osseous abnormality OTHER: None
[2024-09-23 21:07] LABS: Aspartate Aminotransferase 50 U/L (13-40); Chloride 109 mmol/L (98-107); Glucose 182 mg/dL (74-106)
[2024-09-23 21:10] LABS: Lipase 86 U/L (12-53)
--- NOTE | 2024-09-23 22:11 | ECG ---
[facility] Test Date: 2024-09-23 Test Time: 22:10:20 Pat Name: FELICE COLE Department: ED Room: Gender: F Clinical Trials Data Coordinator: RADHA : 1965 Requested By: DESIRAE WAYNE Order Number: [id number] Reading MD: Stephen Gomez Measurements Intervals [place] Rate: 76 P: 66 RI: 150 QRS: 162 QRSD: 96 T: 36 QT: 418 QTc: 471 Interpretive Statements Sinus rhythm Consider right ventricular hypertrophy Electronically Signed On 09-25-2024 21:14:06 PDT by Stephen Gomez Please click the below link to view image of tracing.
[2024-09-23 23:10] VITALS: BP 106/60; TEMP 99.3
[2024-09-24 00:07] VITALS: PULSE 71; RESP 20; O2SAT 97
[2024-09-24 00:21] LABS: COVID19 ANTIGEN SOFIA FIA NEGATIVE (NEGATIVE); Rapid Influenza A Negative (Negative); Rapid Influenza B Negative (Negative)
[2024-09-24] MEDS: SODIUM CHLORIDE 0.9% 1,000 ML IV ONE (00:45)
[2024-09-24 02:37] LABS: Urine Bacteria FEW /hpf (None Seen); Urine Blood Negative /uL (Negative); Urine Clarity Clear (Clear); Urine Color Light-Yellow (Yellow); Urine Protein, UAD TRACE (Negative); Urine Specific Gravity 1.023 (1.001-1.035); Urine Squamous Epithelial Cell FEW /hpf (<5); Urine Urobilinogen Normal (Negative); Urine WBC 2 /HPF (0-5); Urine pH 5.5 (5.0-9.0)
[2024-09-24 03:32] LABS: Amphetamine Screen, Urine Neg (NEGATIVE); Barbiturate Scree,Urine Neg (NEGATIVE); Benzodiazephine Screen, Urine Neg (NEGATIVE); Cannabinoid Screen, Urine Neg (NEGATIVE); Cocaine Screen, Urine Neg (NEGATIVE); Opiate Scree,Urine Neg (NEGATIVE); Phencyclidine Screen, Urine Neg (NEGATIVE)
== END 2024-09-24 02:08 | disposition home or self-care (01) ==
LOC: ER 18:26 → EDBD 18:26 → ER 09-24 02:08
DX: R25.1 Tremor, unspecified (principal); I12.9 Hypertensive chronic kidney disease with stage 1 through stage 4 chronic kidney disease, or unspecified chronic kidney disease; E11.22 Type 2 diabetes mellitus with diabetic chronic kidney disease; N18.9 Chronic kidney disease, unspecified; F17.210 Nicotine dependence, cigarettes, uncomplicated; I48.91 Unspecified atrial fibrillation; R06.02 Shortness of breath; Z20.822 Contact with and (suspected) exposure to COVID-19; Z79.82 Long term (current) use of aspirin; Z79.84 Long term (current) use of oral hypoglycemic drugs; Z79.899 Other long term (current) drug therapy; Z90.49 Acquired absence of other specified parts of digestive tract; Z98.890 Other specified postprocedural states; Z88.0 Allergy status to penicillin; Z88.1 Allergy status to other antibiotic agents
CPT/HCPCS: 36415; 70450; 71045; 80053; 80307; 80320; 81001; 83605; 83690; 83735; 83880; 84443; 84484; 85025; 87426; 87804; 93005; 96360; 99285; J7030

== ENCOUNTER 2024-10-17 12:36 | Inpatient (IN) | payer MEDICAID ==
[~2024-10-17] VITALS: Ht 162.6 cm; Wt 107.6 kg
[2024-10-17 14:15] LABS: Basophils # (auto) 0.1 10 ^3/uL (0-0.2); Basophils % (auto) 1.3 % (0.0-2.0); Eosinophils # (auto) 0.3 10 ^3/uL (0-0.8); Eosinophils % (auto) 3.6 % (0.0-7.0); Hematocrit 37.1 % (36.0-46.0); Hemoglobin 11.8 g/dL (12.2-16.2); Lymphocytes # (auto) 1.1 10 ^3/uL (0.4-5.4); Lymphocytes % (auto) 13.2 % (10.0-50.0); Mean Corpuscular Hemoglobin 23.2 pg (28.0-32.0); Mean Corpuscular Hgb Conc. 31.8 g/dL (32.0-36.0); Mean Corpuscular Volume 73.1 fL (80.0-100.0); Monocytes # (auto) 0.6 10 ^3/uL (0-1.3); Monocytes % (auto) 6.9 % (0.0-12.0); Neutrophils # (auto) 6.2 10 ^3/uL (1.6-8.6); Nucleated Red Blood Cells % 0.1 %; Platelet Count (auto) 135 10^3/uL (140-450); Red Blood Cells 5.08 10^6/uL (4.0-5.20); Red Cell Distribution Width 18.2 % (11.8-14.3); White Blood Cell 8.3 10^3/uL (4.4-10.8)
--- NOTE | 2024-10-17 14:22 | DVH ---
INDICATION: Gangrenous 2nd toe COMPARISON: MRI MRI R FOOT WO CONTRAST on DOS: 08/17/24, MRI MRI L FOOT WO CONTRAST on DOS: 08/17/24, C T CT R FOOT WO CONTRAST on DOS: 08/16/24 TECHNIQUE: CT of the right was performed without contrast. Volume transverse images were obtained and reconstructed in multiple planes using bone and soft tissue algorithms. CONTRAST: None Radiation Dose Information: CT Dose: CTDI volume is 7.75 mGy. Dose-length product is 205.11 mGy*cm FINDINGS: The alignment is normal. The joint spaces are normal. There is no fracture, dislocation, or focal osseous lesions. 11-12 mm cystic area in the calcaneus The soft tissues are normal. IMPRESSION: 1. No lytic bony lesions. 2. No gas in the soft tissues. 3. All CT scans at this medical facility are performed using dose modulation techniques as appropriat e to a performed exam including the following: Automated exposure control was utilized; adjustment of the MA and/or KV according to patient size; and use of iterative reconstruction technique.
[2024-10-17 14:33] LABS: Alanine Aminotransferase 40 U/L (7-40); Alkaline Phosphatase 76 U/L (46-116); Anion Gap 7 (5-15); BUN/Creatinine Ratio 13.7 (10.0-20.0); Blood Urea Nitrogen 22 mg/dL (9-23); Calcium 9.9 mg/dL (8.7-10.4); Carbon Dioxide 27 mmol/L (20-31); Magnesium 2.1 mg/dL (1.6-2.6); Potassium 4.1 mmol/L (3.5-5.1); Sodium 142 mmol/L (136-145); Total Protein 7.4 g/dL (5.7-8.2)
[2024-10-17 14:34] LABS: Albumin 4.5 g/dL (3.2-4.8); Aspartate Aminotransferase 56 U/L (13-40); Bilirubin, Total 0.4 mg/dL (0.2-1.0); Chloride 108 mmol/L (98-107); Glucose 143 mg/dL (74-106)
--- NOTE | 2024-10-17 14:37 | ED.PDOC ---
Musculoskeletal HPI Comments 59F BIBA w/ prior MHx of HIV, DM, Kidney Failure Stage 3, Sz;Cholecystectomy, Carpal tunnel, Hernia repair, Eyes Sx, Thyroidectomy and the c/c of Toe Piain. EMS reports on the pt having right 2nd toe pain w/ ecchymosis for the past 3 days. Pt reports that she bent down to pcik something up when she heard and felt a "pop". Denies chills, fever, N/V/D, SOB, CP. Denies any other associated symptom's, modifiers, or recent injuries or sick contact at this time. 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 CONSTRUCTION RIGGER 08/15/23 Reported Medications Amiodarone HCl (Amiodarone HCl) 200 Mg Tab, 1 TAB PO BID for 90 Days, #180 08/18/24 Insulin Glargine (Basaglar Kwikpen) 100 Unit/Ml Inj, 100 UNITS SC BID for 30 Days, #60 08/18/24 Insulin Lispro (Insulin Lispro Kwikpen) 100 Unit/Ml Inj, 10 UNITS SC DAILY for 100 Days, #15 08/18/24 Cetirizine HCl (Cetirizine Hydrochloride) 10 Mg Tab, 1 TAB PO DAILY for 90 Days, #90 08/18/24 Dapagliflozin Propanediol (Dapagliflozin Propanediol) 5 Mg Tab, 1 TAB PO DAILY for 100 Days, #100 08/18/24 Ferrous Sulfate (Ferosul) 325 Mg Tab, 1 TAB PO DAILY for anemia 06/08/24 Iehrxjfs-Wvtyqcdwsikb-Jzgksfte (Triumeq 600-50-300 mg) 1 Tab Tab, 1 TAB PO DAILY for 30 Days, #30 06/08/24 Sitagliptin Phosphate (Januvia) 100 Mg Tab, 1 DAILY for 90 Days, #90 06/08/24 Metoprolol Tartrate (Metoprolol Tartrate) 25 Mg Tab, 25 MG PO DAILY for 90 Days, #90 06/06/24 Fenofibrate (FENOFIBRATE) 145 Mg Tab, 1 TAB PO DAILY for 90 Days, #90 06/06/24 Potassium Chloride (POTASSIUM CHLORIDE CR) 10 Meq Tb, 1 TAB PO DAILY for 30 Days, #30 06/06/24 Cyclobenzaprine HCl (Cyclobenzaprine Hydrochlo) 10 Mg Tab, 1 TAB PO BID PRN for PAIN FOR MUSCLE SPASMS for 30 Days, #15 08/13/23 Famotidine (Famotidine) 20 Mg Tab, 1 TAB PO BID PRN for ACID REFLUX AND ABDOMINAL PAIN for 90 Days, #180 08/13/23 Furosemide (Furosemide) 40 Mg Tab, 1 TAB PO DAILY for 90 Days, #90 08/13/23 Hydrocodone-Acetaminophen (Hydrocodone/Acetaminophen 5-325 mg) 1 Tab Tab, 2 TAB PO BID 08/13/23 Pregabalin (Pregabalin) 200 Mg Cap, 1 CAP PO TID for 30 Days, #90 08/13/23 Lisinopril (Lisinopril) 2.5 Mg Tab, 1 TAB PO DAILY for 90 Days, #90 08/13/23 Apixaban Base (ELIQUIS) 5 Mg Tab, 1 TAB PO BID for 45 Days, #90 08/13/23 Aspirin (Aspirin) 81 Mg Chw, 1 TAB PO DAILY for 90 Days, #90 08/13/23 Atorvastatin Calcium (ATORVASTATIN CALCIUM) 40 Mg Tab, 1 TAB PO DAILY for 90 Days, #90 08/13/23 Information Source: Patient, Emergency Med Personnel Mode of Arrival: EMS Location: Right Extremity Location: Toe 2 Timing: Days Prehospital treatment: None Severity: Moderate Able to Move Extremity: Yes Bear Weight: Limited Pain: Moderate Hand Dominance: Right Mechanism: Spontaneous Circumstances: Spontaneous Onset of Symptoms: Spontaneous Symptoms: Pain DVT Risk Factors: NONE Last Tetanus: Unknown Associated signs and symptoms: None Past Medical History PAST MEDICAL HISTORY: CKF (stage 3), DM, HIV, Seizures Surgical History: Cholecystectomy, Hernia Repair, Thyroidectomy Surgical History (Other): eye sx, carpal tunnel MOUNTER History: No Pertinent MOUNTER History Family History Family History: Reviewed,noncontributory to illness, Unknown Social History Smoker: Cigarettes Alcohol: Denies ETOH Use Drugs: Denies Drug Use Lives In: Home Constitutional: reports: others (toe pain); denies: chills, diaphoresis, fatigue, fever, malaise, sweats, weakness EENTM: denies: blurred vision, double vision, ear bleeding, ear discharge, ear drainage, ear pain, ear ringing, eye pain, eye redness, hearing loss, mouth pain , mouth swelling, nasal discharge, nose bleeding, nose congestion, nose pain, photophobia, tearing, throat pain, throat swelling, voice changes, others Respiratory: denies: cough, hemoptysis, orthopnea, SOB at rest, shortness of breath, SOB with excertion, stridor, wheezing, others Cardiovascular: denies: chest pain, dizzy spells, diaphoresis, Dyspnea on exertion, edema, irregular heart beat, left arm pain, lightheadedness, palpitations, PND, syncope, others Gastrointestinal: denies: abdomen distended, abdominal pain, blood streaked bowels, constipated, diarrhea, dysphagia, difficulty swallowing, hematemesis, melena, nausea, poor appetite, poor fluid intake, rectal bleeding, rectal pain, vomiting, others Genitourinary: denies: abnormal vagina bleeding, burning, dyspareunia, dysuria, flank pain, frequency, hematuria, incontinence, pain, , vagina discharge, urgency, others Neurological: denies: dizziness, fainting, headache, left sided numbness, left sided weakness, numbness, paresthesia, pre-existing deficit, right sided numbness, right sided weakness, seizure, speech problems, tingling, tremors, weakness, others Musculoskeletal: denies: back pain, gout, joint pain, joint swelling, muscle pain, muscle stiffness, neck pain, others Integumetry: denies: bruises, change in color, change in hair/nails, dryness, laceration, lesions, lumps, rash, wounds, others Allergic/Immunocompromised: denies: Difficulty Healing, Frequent Infections, Hives, Itching, others Hematologic/Lymphatic: denies: anemia, blood clots, easy bleeding, easy bruising, swollen glands, others Endocrine: denies: excessive hunger, excessive sweating, excessive thirst, excessive urination, flushing, intolerance to cold, intolerance to heat, unexplained weight gain, unexplained weight loss, others Psychiatric: denies: anxiety, bipolar disorder, depression, hopeless, panic disorder, schizophrenia, sleepless, suicidal, others All Other Systems: Reviewed and Negative Physical Exam General Appearance: Moderate Distress, Obese HEENT: Normal ENT Inspection, PERRL/EOMI, Pharynx Normal, TMs Normal Neck: Full Range of Motion, Non-Tender, Normal, Normal Inspection Respiratory: Chest Non-Tender, Lungs Clear, No Accessory Muscle Use, No Respiratory Distress, Normal Breath Sounds Cardiovascular: No Edema, No JVD, No Murmur, No Gallop, Normal Peripheral Pulses, Regular Rate/Rhythm Breast Exam: Deferred Gastrointestinal: No Organomegaly, Non Tender, No Pulsatile Mass, Normal Bowel Sounds, Soft, Tenderness (Morbid obesity) Genitalia: Deferred Pelvic: Deferred Rectal: Deferred Extremities: No calf tenderness, Normal capillary refill, Normal inspection, Normal range of motion, Non-tender, No pedal edema Musculoskeletal : Location: Right Extremity Location: Toe 2 Apperance: Swelling, Limited ROM, Tenderness: Moderate, Other (Early gangrene) Neurologic: Alert, hand inserter operator II-XII nml as Tested, No Motor Deficits, Normal Affect, Normal Mood, No Sensory Deficits, Speech Problem Cerebellar Function: NOT DONE Reflexes: NOT DONE Skin: Dry, Normal Color, Warm Peripheral Pulses: 1+ carotid (R), 1+ carotid (L) Lymphatic: No Adenopathy Was a procedure done? Was a procedure done?: No Differential Diagnosis EXT Differential Diagnosis: Cellulitis, Septic, Other (Early gangrene) X-Ray, Labs, Meds, VS Vital Signs Date Time Temp Pulse Resp B/P (MAP) Pulse Ox O2 Delivery O2 Flow Rate FiO2 10/17/24 12:47 98.6 77 18 113/64 (80) 95 98.6 Lab Test 10/17/24 14:04 Range/Units White Blood Count 8.3 4.4-10.8 10^3/uL Red Blood Count 5.08 4.0-5.20 10^6/uL Hemoglobin 11.8 L 12.2-16.2 g/dL Hematocrit 37.1 36.0-46.0 % Mean Corpuscular Volume 73.1 L 80.0-100.0 fL Mean Corpuscular Hemoglobin 23.2 L 28.0-32.0 pg Mean Corpuscular Hemoglobin Concent 31.8 L 32.0-36.0 g/dL Red Cell Distribution Width 18.2 H 11.8-14.3 % Platelet Count 135 L 140-450 10^3/uL Mean Platelet Volume 9.8 6.9-10.8 fL Neutrophils (%) (Auto) 75.0 37.0-80.0 % Lymphocytes (%) (Auto) 13.2 10.0-50.0 % Monocytes (%) (Auto) 6.9 0.0-12.0 % Eosinophils (%) (Auto) 3.6 0.0-7.0 % Basophils (%) (Auto) 1.3 0.0-2.0 % Neutrophils # (Auto) 6.2 1.6-8.6 10 ^3/uL Lymphocytes # (Auto) 1.1 0.4-5.4 10 ^3/uL Monocytes # (Auto) 0.6 0-1.3 10 ^3/uL Eosinophils # (Auto) 0.3 0-0.8 10 ^3/uL Basophils # (Auto) 0.1 0-0.2 10 ^3/uL Nucleated Red Blood Cells 0.1 % Sodium Level 142 136-145 mmol/L Potassium Level 4.1 3.5-5.1 mmol/L Chloride Level 108 H 98-107 mmol/L Carbon Dioxide Level 27 20-31 mmol/L Anion Gap 7 5-15 Blood Urea Nitrogen 22 9-23 mg/dL Creatinine 1.61 H 0.550-1.02 mg/dL Glomerular Filtration Rate Calc 36 >90 mL/min BUN/Creatinine Ratio 13.7 10.0-20.0 Serum Glucose 143 H 74-106 mg/dL Calcium Level 9.9 8.7-10.4 mg/dL Magnesium Level 2.1 1.6-2.6 mg/dL Total Bilirubin 0.4 0.2-1.0 mg/dL Aspartate Amino Transferase (AST) 56 H 13-40 U/L Alanine Aminotransferase (ALT) 40 7-40 U/L Alkaline Phosphatase 76 46-116 U/L Total Protein 7.4 5.7-8.2 g/dL Albumin 4.5 3.2-4.8 g/dL X-Ray, Labs, Meds, VS Comment Course in the emergency department eventful patient came in complaining of pain to his to her 2nd toe on the right side patient has a history of hypertension GERD diameter insulin dependent she is on Eliquis The CT of the foot shows no gas in the soft tissue and no lytic lesion in the bones CBC 8300 with 75% neutrophils H&H 11.8 and 37 with a microcytosis CMP GFR is at 36 blood sugar 143 Magnesium 2.1 Patient will be admitted for IV antibiotics Time of 1ST Reevaluation: 14:00 Reevaluation 1ST: Unchanged Patient Education/Counseling: Diagnosis, Treatment, Prognosis Family Education/Counseling: No Family Present Departure 1 Departure Time of Disposition: 15:49 Impression: Primary Impression: Generalized weakness Additional Impressions: Cellulitis of second toe, right Diabetic nephropathy associated with diabetes mellitus due to underlying condition Anemia in chronic kidney disease (CKD) Disposition: ADMITTED INPATIENT Admit to: Med Surg Condition: Serious Critical Care Note Critical Care Time?: No Stability Stability form required: Yes Unstable for transfer: Requires medication (Requires Med for stabilization) Heart Score Heart Score: Heart Score Response (Comments) Value History N/A 0 EKG N/A 0 Age 45-64 1 Risk Factors 1 or 2 risk factors 1 Troponin N/A 0 Total 2 I personally scribed for J CARLOS WRIGHT MD ([email or web address]) on 10/17/24 at 14:37. Electronically submitted by Bob Almeida ([email or web address]). J CARLOS WRIGHT MD October 17, 2024 14:37
[2024-10-17] MEDS: CLINDAMYCIN 900MG IV 50 ML IV ONE (17:06)
[2024-10-17 17:25] VITALS: PULSE 61; RESP 14; O2SAT 97
[2024-10-17] MEDS: SODIUM CHLORIDE 0.9% 1,000 ML IV ONE (17:55)
[2024-10-17 19:01] LABS: Base Excess 2.3 mmol/L (-2.0-3.0)
[2024-10-17] MEDS ORDERED: DEXTROSE (50%) 50ML SYRG IV PRN (21:15)
[2024-10-17] MEDS ORDERED: ACETAMINOPHEN 325 MG TAB PO PRN (21:15)
[2024-10-17] MEDS ORDERED: ENOXAPARIN SOD 40 MG/0.4 ML SYRINGE SC SCH (22:00)
--- NOTE | 2024-10-17 22:06 | DVH ---
CHEST RADIOGRAPH Indication: chf Technique: Single frontal view of the chest was obtained Comparison: XY CHEST XRAY 1 VIEW on DOS: 09/23/24, XY CHEST XRAY 1 VIEW on DOS: 08/16/24, XY CHEST RAFA BLE on DOS: 08/14/24 FINDINGS: Lines and Tubes: None Lungs: Mildly prominent pulmonary vascularity Pleura: No effusion. No pneumothorax. Cardiomediastinal contours: Cardiac size is at the upper limits of normal Bones: No acute osseous abnormality. IMPRESSION: 1. Questionable radiographic findings suggesting congestive failure correlate with the clinical setti ng.
[2024-10-17] MEDS: ACCU-CHEK COMFORT CURVE STRIP VI SCH (22:11)
[2024-10-17] MEDS: InsuLIN REG 1unit/0.01ml Soln (100units/ml) SC SCH (22:12)
[2024-10-17] MEDS: cefTRIAXone 1GM/50ML D5W 50 ML IV SCH (22:57)
[2024-10-17 23:29] VITALS: BP 113/52; PULSE 48; RESP 15; TEMP 96.5; O2SAT 98
[2024-10-18] VITALS (8 sets, daily range): BP systolic 104–143; BP diastolic 54–85; PULSE 47–62; RESP 15–18; TEMP 97.3–97.9; O2SAT 96–100
[2024-10-18] MEDS: SODIUM CHLORIDE 0.9% 250 ML IV ONE
[2024-10-18] MEDS: CLINDAMYCIN 600MG IV 50 ML IV SCH (00:03)
--- NOTE | 2024-10-18 05:56 | DVHHP2 ---
History of Present Illness Reason for Visit: cellulitis History of Present Illness 59-year-old female with past medical history of HIV (on antiretrovirals with undetectable viral load), DM type 2 insulin-dependent, CKD stage 3, hypertension, GERD, chronic respiratory failure, history of AFib on Eliquis,presents with right 2nd toe pain with associated ecchymosis for the past 3 days. She states she bent down to pick something up when she heard and felt a "pop" in the toe. She denies trauma, fever, chills, nausea, vomiting, shortness of breath, chest pain, recent illness, or sick contacts. Review of Systems: Negative for fever, chills, nausea, vomiting, diarrhea, cough, chest pain, shortness of breath, and urinary symptoms. Positive for localized toe pain. Review of Systems Allergies: Coded Allergies: Loperamide (Verified Allergy, Severe, 08/13/23) Nystatin (Verified Allergy, Severe, 08/13/23) Penicillins (Verified Allergy, Severe, 08/13/23) Diphenhydramine (Verified Allergy, Unknown, 09/23/24) Medications Current Medications Medications Dose Ordered Sig/Uyen Route Start Time Stop Time Status Last Admin Dose Admin Enoxaparin Sodium 80 mg BID SC 10/17/24 22:00 UNV Ceftriaxone Sodium 50 ml @ 100 mls/hr DAILY@09 IV 10/17/24 21:15 10/17/24 22:57 100 MLS/HR Clindamycin Phosphate 50 ml @ 50 mls/hr Q8H IV 10/18/24 00:00 10/18/24 00:03 50 MLS/HR Patient Own Medication 1 DAILY PO 10/18/24 10:00 UNV Diagnostic Test (Pha) 1 strip ACHS 10/17/24 22:00 10/17/24 22:11 1 STRIP Insulin Human Regular ACHS SC 10/17/24 22:00 10/17/24 22:12 4 UNITS Dextrose 50 ml UD PRN IV 10/17/24 21:15 Acetaminophen/ Hydrocodone Bitart 1 tab Q4HPRN PRN PO 10/17/24 21:15 Acetaminophen 325 mg Q4HP PRN PO 10/17/24 21:15 Exam Vital Signs Vital Signs Date Time Temp Pulse Resp B/P (MAP) Pulse Ox O2 Delivery O2 Flow Rate FiO2 10/18/24 05:00 97.8 47 17 136/74 (94) 100 97.8 10/17/24 23:29 Nasal Cannula* 2 28 Exam General: Obese female, in no acute distress Vitals: Stable on admission Cardiovascular: RRR, no murmur Pulmonary: Clear to auscultation bilaterally GI: Soft, non-tender Neuro: Grossly intact Extremities: Right 2nd toe with tenderness and ecchymosis; no open wounds or purulence Skin: No rashes or ulcers noted except at affected toe Labs/Xrays Labs Test 10/17/24 20:27 10/17/24 18:56 10/17/24 14:04 Range/Units POC Glucose 152 H 70-106 mg/dl Blood Gas Specimen Type Arterial Blood Gas Sample Site Right radial Blood Gas Patient Temperature 37.0 Arterial Blood Date Drawn [id number] Arterial Blood pH 7.472 H 7.350-7.450 Arterial Blood Partial Pressure CO2 36.0 32.0-45.0 mmHg Arterial Blood Partial Pressure O2 94.1 83.0-108.0 mmHg Arterial Blood HCO3 25.7 21.0-28.0 mmol/L Arterial Blood Oxygen Saturation 97.3 94.0-98.0 % Arterial Blood Base Excess 2.3 -2.0-3.0 mmol/L Arterial Blood Oxyhemoglobin 93.6 L 94.0-98.0 % Arterial Blood Carboxyhemoglobin 3.4 H 0.5-1.5 % Arterial Blood Methemoglobin 0.4 0.0-1.5 % Anish Test Yes Blood Gas Total Hemoglobin 12.00 12.0-16.0 g/dL Blood Gas Liter Flow 2.00 Blood Gas Modality Nasal cannula FiO2 % 28.0 White Blood Count 8.3 4.4-10.8 10^3/uL Red Blood Count 5.08 4.0-5.20 10^6/uL Hemoglobin 11.8 L 12.2-16.2 g/dL Hematocrit 37.1 36.0-46.0 % Mean Corpuscular Volume 73.1 L 80.0-100.0 fL Mean Corpuscular Hemoglobin 23.2 L 28.0-32.0 pg Mean Corpuscular Hemoglobin Concent 31.8 L 32.0-36.0 g/dL Red Cell Distribution Width 18.2 H 11.8-14.3 % Platelet Count 135 L 140-450 10^3/uL Mean Platelet Volume 9.8 6.9-10.8 fL Neutrophils (%) (Auto) 75.0 37.0-80.0 % Lymphocytes (%) (Auto) 13.2 10.0-50.0 % Monocytes (%) (Auto) 6.9 0.0-12.0 % Eosinophils (%) (Auto) 3.6 0.0-7.0 % Basophils (%) (Auto) 1.3 0.0-2.0 % Neutrophils # (Auto) 6.2 1.6-8.6 10 ^3/uL Lymphocytes # (Auto) 1.1 0.4-5.4 10 ^3/uL Monocytes # (Auto) 0.6 0-1.3 10 ^3/uL Eosinophils # (Auto) 0.3 0-0.8 10 ^3/uL Basophils # (Auto) 0.1 0-0.2 10 ^3/uL Nucleated Red Blood Cells 0.1 % Sodium Level 142 136-145 mmol/L Potassium Level 4.1 3.5-5.1 mmol/L Chloride Level 108 H 98-107 mmol/L Carbon Dioxide Level 27 20-31 mmol/L Anion Gap 7 5-15 Blood Urea Nitrogen 22 9-23 mg/dL Creatinine 1.61 H 0.550-1.02 mg/dL Glomerular Filtration Rate Calc 36 >90 mL/min BUN/Creatinine Ratio 13.7 10.0-20.0 Serum Glucose 143 H 74-106 mg/dL Calcium Level 9.9 8.7-10.4 mg/dL Magnesium Level 2.1 1.6-2.6 mg/dL Total Bilirubin 0.4 0.2-1.0 mg/dL Aspartate Amino Transferase (AST) 56 H 13-40 U/L Alanine Aminotransferase (ALT) 40 7-40 U/L Alkaline Phosphatase 76 46-116 U/L B-Type Natriuretic Peptide 42.15 0-100 pg/mL Total Protein 7.4 5.7-8.2 g/dL Albumin 4.5 3.2-4.8 g/dL Assessment/Plan Assessment/Plan #sp mechanical fall #Sepsis? #cellulitis in the 2 toe of right foot #Fracture ruled out #HIV on antiretrovirals #Undetectable viral load #TOÑA due to VMN on CKD stage 3 #H/o of Atrial fibrillation on eliquis #Diabetes mellitus type 2 #Chronic respiratory failure #Hyperintensive heart disease with diastolic dysfunction, stable #Peripheral arterial disease Admit Telemetry Diabetic diet Ceftriaxone + Clindamycin [place] PRN for pain Protonix IV Enoxaparin 80 mg BID SC Hold on BPs meds, amiodarone and BB due to possible sepsis and low HR Wound culture and wound consult IV fluids given conservative due to HF Mild ISS Triumeq POM (antiretroviral) daily Case discussed with Dr Sanchez Full code Plan discussed with: Patient, Other My Orders Orders - FELICE BELL RESIDENT Procedure Category Date Status Time Admit ADMIT 10/17/24 Transmitted 21:15 Code Status CODE 10/17/24 Transmitted 21:15 Vital Signs SANJU 10/17/24 In Process 21:15 Review Orders With SANJU 10/17/24 In Process Adm. 21:15 Consistent DIET 10/18/24 Transmitted Carb(Ccho)Diabetes Breakfast Notify Md Of Changes SANJU 10/17/24 In Process From Base 21:15 Advance Directive SANJU 10/17/24 In Process 21:15 Patient Condition ORDERS 10/17/24 Transmitted 21:15 Allergies SANJU 10/17/24 In Process 21:15 Enoxaparin Sodium PHA 10/17/24 Pending (Lovenox) 22:00 Ceftriaxone 1gm/50ml PHA 10/17/24 In Process D5w (Rocephin) 21:15 Chest Xray 1 View XY 10/17/24 Resulted 21:15 Patients Own PHA 10/18/24 Pending Medication 10:00 Glucose Blood PHA 10/17/24 In Process (Accu-Chek Comfort 22:00 Insulin R (Human) PHA 10/17/24 In Process (Insulin R) 22:00 Dextrose 50% Syringe PHA 10/17/24 In Process 21:15 Hydrocodone-Acet PHA 10/17/24 In Process 5/325mg Tab ([place] 21:15 Acetaminophen Tablet PHA 10/17/24 In Process (Tylenol Tablet) 21:15 * Wound Consult CONS 10/17/24 Transmitted Wound Culture W/ Gs CRISTIAN 10/17/24 Logged 21:15 Urinalysis LAB 10/17/24 Logged 21:22 Drug Screen LAB 10/17/24 Logged 21:22 Blood Culture CRISTIAN 10/17/24 In Process 21:59 Bilat Low Ext Art US 10/17/24 Taken Duplex 21:59 Clindamycin 600mg Iv PHA 10/18/24 In Process (Cleocin Iv) 00:00 Hepatitis B Surface LAB 10/18/24 Logged Antigen 04:00 Hepatitis C Antibody LAB 10/18/24 Logged 04:00 * Raw Hide Trimmer CONS 10/17/24 Transmitted Consult Education - Smoking SANJU 10/17/24 In Process Cessation 23:42 Mrsa Screen CRISTIAN 10/17/24 Uncollected 23:42 Complete Blood Count LAB 10/18/24 Logged 05:07 Comprehensive LAB 10/18/24 Logged Metabolic Panel 05:07 Thyroid Stimulating LAB 10/18/24 Logged Hormone 05:07 Hemoglobin A1c LAB 10/18/24 Logged 05:07 Date of Service: October 17, 2024 Billing Provider: EDUARDO SANCHEZ MD Common Visit Codes: 88713-LYZUNRE INP/OBS CARE (HIGH) Secondary Visit Codes: 81479-BKHLSTOL CARE PLAN 30 MINUTES FELICE BELL RESIDENT October 18, 2024 05:56
[2024-10-18 06:42] LABS: Basophils # (auto) 0.1 10 ^3/uL (0-0.2); Eosinophils # (auto) 0.3 10 ^3/uL (0-0.8); Hemoglobin 10.6 g/dL (12.2-16.2); Lymphocytes # (auto) 0.9 10 ^3/uL (0.4-5.4); Nucleated Red Blood Cells % 0.1 %; White Blood Cell 4.8 10^3/uL (4.4-10.8)
[2024-10-18 06:45] LABS: Basophils % (auto) 1.8 % (0.0-2.0); Eosinophils % (auto) 5.4 % (0.0-7.0); Hematocrit 33.5 % (36.0-46.0); Lymphocytes % (auto) 18.8 % (10.0-50.0); Mean Corpuscular Hgb Conc. 31.7 g/dL (32.0-36.0); Mean Corpuscular Volume 72.7 fL (80.0-100.0); Monocytes # (auto) 0.6 10 ^3/uL (0-1.3); Monocytes % (auto) 12.2 % (0.0-12.0); Neutrophils % (auto) 61.8 % (37.0-80.0); Platelet Count (auto) 97 10^3/uL (140-450); Red Blood Cells 4.61 10^6/uL (4.0-5.20); Red Cell Distribution Width 18.4 % (11.8-14.3)
[2024-10-18 07:02] LABS: Alanine Aminotransferase 32 U/L (7-40); Alkaline Phosphatase 68 U/L (46-116); Anion Gap 6 (5-15); BUN/Creatinine Ratio 11.4 (10.0-20.0); Blood Urea Nitrogen 19 mg/dL (9-23); Calcium 9.8 mg/dL (8.7-10.4); Carbon Dioxide 30 mmol/L (20-31); Potassium 3.8 mmol/L (3.5-5.1); Sodium 143 mmol/L (136-145)
[2024-10-18 07:03] LABS: Albumin 4.1 g/dL (3.2-4.8); Aspartate Aminotransferase 38 U/L (13-40); Bilirubin, Total 0.3 mg/dL (0.2-1.0)
[2024-10-18 07:04] LABS: Chloride 107 mmol/L (98-107); Glucose 196 mg/dL (74-106)
--- NOTE | 2024-10-18 07:53 | DVH ---
CLINICAL HISTORY: Peripheral arterial disease. TECHNIQUE: Bilateral lower extremity arterial duplex exam was performed. Grayscale, color Doppler, an d spectral waveform analysis was performed. COMPARISON: US BILAT LOW EXT ART DUPLEX on DOS: 08/18/24 FINDINGS: Right Lower Extremity: Scattered moderate atherosclerotic plaque. Biphasic waveforms seen in the righ t posterior tibial artery. Otherwise triphasic waveforms throughout the right lower extremity. [place] cristopher peak systolic velocity in the distal right SFA as described below, corresponding to the 50-75% st enosis category. There is a fluid collection in the right popliteal fossa measuring up to 5 cm, likely popliteal cyst. Left Lower Extremity: Scattered moderate atherosclerotic plaque. There are biphasic waveforms through out the left lower extremity. There is elevated peak systolic velocity in the mid SFA corresponding t o the 30-49% stenosis category. EXAMINATION DATA: RIGHT PSV (cm/sec) SKATING RINK ICE MAKER 133 Profunda 125 SFA Prox 107 SFA Mid 147 SFA Dist 247 POP A 91 JUNIOR JAVA DEVELOPER 66 DPA 78 LEFT PSV (cm/sec) SKATING RINK ICE MAKER 116 Profunda 148 SFA Prox 87 SFA Mid 173 SFA Dist 67 POP A 71 JUNIOR JAVA DEVELOPER 57 DPA 34 IMPRESSION: 1. Peripheral arterial disease with stenoses in the distal right SFA and mid left SFA as described a blanca. 2. Fluid collection in the right popliteal fossa, likely popliteal cyst.
[2024-10-18] MEDS: TRIUMEQ PO SCH (10:00)
[2024-10-18 14:27] LABS: Urine Bacteria FEW /hpf (None Seen); Urine Blood Negative /uL (Negative); Urine Clarity Clear (Clear); Urine Color Light-Yellow (Yellow); Urine Protein, UAD Negative (Negative); Urine Squamous Epithelial Cell FEW /hpf (<5); Urine Urobilinogen Normal (Negative); Urine WBC 1 /HPF (0-5); Urine pH 6.5 (5.0-9.0)
[2024-10-18 14:39] LABS: Amphetamine Screen, Urine Neg (NEGATIVE); Barbiturate Scree,Urine Neg (NEGATIVE); Benzodiazephine Screen, Urine Neg (NEGATIVE); Cannabinoid Screen, Urine Neg (NEGATIVE); Cocaine Screen, Urine Neg (NEGATIVE); Opiate Scree,Urine Neg (NEGATIVE); Phencyclidine Screen, Urine Neg (NEGATIVE)
[2024-10-18] MEDS ORDERED: METOPROLOL TARTRATE 25 MG TAB PO ONE (14:45)
[2024-10-18] MEDS: INSULIN LANTUS (GLARGINE) 1 /0.01ml (100units/ml) SC ONE (15:00)
--- NOTE | 2024-10-18 15:15 | DVHPNRES ---
Progress Note Date Seen: October 18, 2024 Resident Creating Document: ROGERIO BRYANT RESIDENT Medical Necessity Reason Pt with a Central, PICC or Fol: No Subjective Review of Systems HPI 59-year-old female with past medical history of HIV (on antiretrovirals with undetectable viral load), DM type 2 insulin-dependent, CKD stage 3, hypertension, GERD, chronic respiratory failure, history of AFib on Eliquis,presents with right 2nd toe pain with associated ecchymosis for the past 3 days. She states she bent down to pick something up when she heard and felt a "pop" in the toe. She denies trauma, fever, chills, nausea, vomiting, shortness of breath, chest pain, recent illness, or sick contacts. Review of Systems: Negative for fever, chills, nausea, vomiting, diarrhea, cough, chest pain, shortness of breath, and urinary symptoms. Positive for localized toe pain. Objective vital signs Vital Sign Date Time Temp Pulse Resp B/P (MAP) Pulse Ox O2 Delivery O2 Flow Rate FiO2 10/18/24 13:28 97.3 61 18 137/66 (89) 99 97.3 10/18/24 08:00 Nasal Cannula* 2 28 Total Intake and Output 10/17/24 10/17/24 10/18/24 15:00 23:00 07:00 Intake Total 750 ml 50 ml Balance 750 ml 50 ml medications Current Medications Medications Dose Ordered Sig/Uyen Route Start Time Stop Time Status Last Admin Dose Admin Enoxaparin Sodium 80 mg BID SC 10/17/24 22:00 UNV Ceftriaxone Sodium 50 ml @ 100 mls/hr DAILY@09 IV 10/17/24 21:15 10/18/24 10:04 100 MLS/HR Clindamycin Phosphate 50 ml @ 50 mls/hr Q8H IV 10/18/24 00:00 10/18/24 08:30 50 MLS/HR Patient Own Medication 1 DAILY PO 10/18/24 10:00 Diagnostic Test (Pha) 1 strip ACHS 10/17/24 22:00 10/18/24 06:19 1 STRIP Insulin Human Regular ACHS SC 10/17/24 22:00 10/18/24 06:16 3 UNITS Dextrose 50 ml UD PRN IV 10/17/24 21:15 Acetaminophen/ Hydrocodone Bitart 1 tab Q4HPRN PRN PO 10/17/24 21:15 Acetaminophen 325 mg Q4HP PRN PO 10/17/24 21:15 Apixaban 5 mg BID PO 10/18/24 22:00 Examination Gen - no pallor, no icterus, no cyanosis, no clubbing, no LAD, no edema . Morbidly obese Skin - Patients skin is warm and dry. HEENT - normocephalic, atraumatic, moist mucous membranes. Neck - full ROM, no LAD, no JVD Pulmonary - B/L equal breath sounds, no crackles, no wheezing, no stridor. cardiovascular - S1,S2 heard, no added sounds, no murmurs heard. peripheral pulses normal radial 2+, pedal 2+. capillary refill normal <2 secs. GI - soft, nontender abdomen. no hepatosplenomegaly. Bowel sounds normoactive Extremities- right 2nd toe swollen and tender to touch Neurological - Patient is A/O X 3 . Bilateral upper extremity strength 5/5, bilateral lower extremity strength 5/5, no facial droop, normal speech, no tremor, no focal deficits. laboratory and microbiology Laboratory Tests 10/18/24 05:56 Test 10/18/24 05:56 Range/Units Serum Glucose 196 H 74-106 mg/dL Microbiology Date/Time Source Procedure Growth Status 10/18/24 06:15 Nose MRSA Screen - Final Complete Labs and/or images reviewed: Labs reviewed by me, Image(s) reviewed by me Problem List/Assessment/Plan Problem List/Assessment/Plan Cellulitis of right 2nd toe Bilateral superficial femoral artery stenosis - foot CT showed no acute fracture, dislocation, no lytic bony lesions and no gas in the soft tissues - IV antibiotics clindamycin and ceftriaxone - podiatry consulted - wound culture pending - aspirin Paroxysmal atrial fibrillation Hypertensive heart disease with diastolic dysfunction - continued on Eliquis 5 mg b.i.d. and amiodarone 200 mg b.i.d. - Lasix 40 mg daily, - lisinopril and metoprolol tartrate Uncontrolled Insulin dependent Type 2 diabetes mellitus - HbA1c 9.3% - insulin Lantus 25 b.i.d. ( at home patient is on insulin Lantus 40 units b.i.d.) HIV - continued on Triumeq PUD prophylaxis: Famotidine DVT prophylaxis: On Eliquis Goals of care discussed with the patient for 20 minutes. Full code Plan discussed with Dr. Bajwa Plan discussed with: Patient, Other (RN) My Orders My Orders Orders - ROGERIO BRYANT RESIDENT Procedure Category Date Status Time *Podiatry Consult CONS 10/18/24 Transmitted Latoyaon([facility]) 12:02 Apply: SANJU 10/18/24 In Process 14:25 Addendum Addendum Addendum I was physically present for the johnston portions of the service provided to patient by THE RESIDENT. I have reviewed the documentation, discussed the case with resident and agree with the resident's documentation except as noted. Also the patient's clinical case was discussed with the patient's nurse. This medical document was created using an electronic medical record system with computerized dictation system. Although this document has been carefully reviewed, there might still be some phonetic and typographical errors. These areas are purely typographical due to imperfections of the software programs, and do not reflect any compromise in the patient's medical care. Late signature. Date of Service: October 18, 2024 Billing Provider: SUNI BAJWA MD Common Visit Codes: [id number] INP/OBS CARE(HIGH) Secondary Visit Codes: [id number] CARE PLAN 30 MINUTES (20 minutes) ROGERIO BRYANT RESIDENT October 18, 2024 15:15 SUNI BAJWA MD Oct 19, 2024 11:27
[2024-10-18] MEDS: APIXABAN 5 MG TAB PO ONE (17:12)
[2024-10-18] MEDS: HYDROcodone-ACET 5/325MG TAB PO PRN (17:13)
[2024-10-18] MEDS: PREGABALIN 25 MG CAP PO SCH (21:02)
[2024-10-18] MEDS: ATORVASTATIN 20 MG TAB PO SCH (21:02)
[2024-10-18] MEDS: APIXABAN 5 MG TAB PO SCH (21:03)
[2024-10-18] MEDS: AMIODARONE HCL 200 MG TAB PO SCH (21:03)
[2024-10-18] MEDS: METOPROLOL TARTRATE 25 MG TAB PO SCH (21:04)
[2024-10-18] MEDS: CYCLOBENZAPRINE HCL 10 MG TAB PO SCH (21:06)
[2024-10-18] MEDS: INSULIN LANTUS (GLARGINE) 1 /0.01ml (100units/ml) SC SCH (21:08)
[2024-10-19] VITALS (8 sets, daily range): BP systolic 113–133; BP diastolic 60–80; PULSE 56–64; RESP 15–18; TEMP 97.6–98.2; O2SAT 96–98
[2024-10-19 06:24] LABS: Basophils # (auto) 0.1 10 ^3/uL (0-0.2); Basophils % (auto) 1.4 % (0.0-2.0); Eosinophils # (auto) 0.3 10 ^3/uL (0-0.8); Eosinophils % (auto) 6.8 % (0.0-7.0); Hematocrit 33.3 % (36.0-46.0); Hemoglobin 10.5 g/dL (12.2-16.2); Lymphocytes # (auto) 0.7 10 ^3/uL (0.4-5.4); Lymphocytes % (auto) 15.8 % (10.0-50.0); Mean Corpuscular Hemoglobin 22.9 pg (28.0-32.0); Mean Corpuscular Hgb Conc. 31.6 g/dL (32.0-36.0); Mean Corpuscular Volume 72.4 fL (80.0-100.0); Monocytes # (auto) 0.4 10 ^3/uL (0-1.3); Monocytes % (auto) 8.7 % (0.0-12.0); Neutrophils % (auto) 67.3 % (37.0-80.0); Platelet Count (auto) 95 10^3/uL (140-450); Red Blood Cells 4.59 10^6/uL (4.0-5.20); Red Cell Distribution Width 18.5 % (11.8-14.3); White Blood Cell 4.4 10^3/uL (4.4-10.8)
[2024-10-19 06:26] LABS: Anion Gap 6 (5-15); Carbon Dioxide 27 mmol/L (20-31); Potassium 3.7 mmol/L (3.5-5.1); Sodium 142 mmol/L (136-145)
[2024-10-19 06:32] LABS: BUN/Creatinine Ratio 13.3 (10.0-20.0); Blood Urea Nitrogen 17 mg/dL (9-23); Chloride 109 mmol/L (98-107); Glucose 166 mg/dL (74-106)
[2024-10-19] MEDS: JANUVIA 100MG TABLET PO SCH (09:58)
[2024-10-19] MEDS: FAMOTIDINE 20 MG TAB PO SCH (09:59)
[2024-10-19] MEDS: FUROSEMIDE 20 MG TAB PO SCH (09:59)
[2024-10-19] MEDS: ASPirin 81 mg TAB PO SCH (10:00)
--- NOTE | 2024-10-19 19:10 | DVHPNRES ---
Progress Note Date Seen: Oct 19, 2024 Resident Creating Document: CECI ACOSTA RESIDENT Medical Necessity Reason Pt with a Central, PICC or Fol: No Subjective Review of Systems Patient seen and examined at bedside Continued to have right toe erythema and swelling with pain Generalized weakness On oxygen via nasal cannula 2-3 L / min No any other new complaints Objective vital signs Vital Sign Date Time Temp Pulse Resp B/P (MAP) Pulse Ox O2 Delivery O2 Flow Rate FiO2 10/19/24 16:49 97.9 58 18 133/75 (94) 98 97.9 10/19/24 08:00 Nasal Cannula* 2 28 Total Intake and Output 10/18/24 10/18/24 10/19/24 15:00 23:00 07:00 Intake Total 100 ml 1440 ml 350 ml Balance 100 ml 1440 ml 350 ml medications Current Medications Medications Dose Ordered Sig/Uyen Route Start Time Stop Time Status Last Admin Dose Admin Enoxaparin Sodium 80 mg BID SC 10/17/24 22:00 UNV Ceftriaxone Sodium 50 ml @ 100 mls/hr DAILY@09 IV 10/17/24 21:15 10/19/24 09:57 100 MLS/HR Clindamycin Phosphate 50 ml @ 50 mls/hr Q8H IV 10/18/24 00:00 10/19/24 16:15 50 MLS/HR Patient Own Medication 1 DAILY PO 10/18/24 10:00 10/19/24 09:57 1 Diagnostic Test (Pha) 1 strip ACHS 10/17/24 22:00 10/19/24 17:00 1 STRIP Insulin Human Regular ACHS SC 10/17/24 22:00 10/18/24 06:16 3 UNITS Dextrose 50 ml UD PRN IV 10/17/24 21:15 Acetaminophen/ Hydrocodone Bitart 1 tab Q4HPRN PRN PO 10/17/24 21:15 10/19/24 10:13 1 TAB Acetaminophen 325 mg Q4HP PRN PO 10/17/24 21:15 Apixaban 5 mg BID PO 10/18/24 22:00 10/19/24 09:59 5 MG Patient Own Medication 1 DAILY PO 10/19/24 10:00 10/19/24 09:58 1 Famotidine 20 mg DAILY PO 10/19/24 10:00 10/19/24 09:59 20 MG Furosemide 40 mg DAILY PO 10/19/24 10:00 10/19/24 09:59 40 MG Cyclobenzaprine HCl 10 mg BID PO 10/18/24 22:00 10/19/24 09:59 10 MG Amiodarone HCl 200 mg Q12HR PO 10/18/24 22:00 10/19/24 09:59 200 MG Patient Own Medication 1 DAILY PO 10/19/24 10:00 10/19/24 09:57 1 Aspirin 81 mg DAILY PO 10/19/24 10:00 Atorvastatin Calcium 40 mg HS PO 10/18/24 22:00 10/18/24 21:02 40 MG Pregabalin 100 mg TID PO 10/18/24 22:00 10/19/24 14:41 100 MG Lisinopril 2.5 mg DAILY PO 10/19/24 22:00 Insulin Glargine 25 units HS SC 10/18/24 22:00 10/18/24 21:08 25 UNITS Examination Gen - no pallor, no icterus, no cyanosis, no clubbing, no LAD, no edema . Morbidly obese Skin - Patients skin is warm and dry. HEENT - normocephalic, atraumatic, moist mucous membranes. Neck - full ROM, no LAD, no JVD Pulmonary - B/L equal breath sounds, no crackles, no wheezing, no stridor. cardiovascular - S1,S2 heard, no added sounds, no murmurs heard. peripheral pulses normal radial 2+, pedal 2+. capillary refill normal <2 secs. GI - soft, nontender abdomen. no hepatosplenomegaly. Bowel sounds normoactive Extremities- right 2nd toe swollen and tender to touch Neurological - Patient is A/O X 3 . Bilateral upper extremity strength 5/5, bilateral lower extremity strength 5/5, no facial droop, normal speech, no tremor, no focal deficits. laboratory and microbiology Laboratory Tests 10/19/24 05:33 Test 10/19/24 05:33 Range/Units Serum Glucose 166 H 74-106 mg/dL Microbiology Date/Time Source Procedure Growth Status 10/18/24 06:15 Nose MRSA Screen - Final Complete 10/17/24 22:49 Blood Blood Culture - Preliminary NO GROWTH AFTER 24 HOURS OF INCUBATION. Resulted Labs and/or images reviewed: Labs reviewed by me, Image(s) reviewed by me Problem List/Assessment/Plan Problem List/Assessment/Plan Cellulitis of right 2nd toe Bilateral superficial femoral artery stenosis - foot CT showed no acute fracture, dislocation, no lytic bony lesions and no gas in the soft tissues - IV antibiotics clindamycin - podiatry consulted - wound culture pending - aspirin Paroxysmal atrial fibrillation Hypertensive heart disease with diastolic dysfunction - continued on Eliquis 5 mg b.i.d. and amiodarone 200 mg b.i.d. - Lasix 40 mg daily, - lisinopril and metoprolol tartrate Uncontrolled Insulin dependent Type 2 diabetes mellitus - HbA1c 9.3% - insulin Lantus 25 b.i.d. ( at home patient is on insulin Lantus 40 units b.i.d.) HIV - continued on Triumeq PUD prophylaxis: Famotidine DVT prophylaxis: On Eliquis Full code Plan discussed with Dr. Bajwa Plan discussed with: Patient, Other (RN) Addendum Addendum Addendum I was physically present for the johnston portions of the service provided to patient by THE RESIDENT. I have reviewed the documentation, discussed the case with resident and agree with the resident's documentation except as noted. Also the patient's clinical case was discussed with the patient's nurse. This medical document was created using an electronic medical record system with computerized dictation system. Although this document has been carefully reviewed, there might still be some phonetic and typographical errors. These areas are purely typographical due to imperfections of the software programs, and do not reflect any compromise in the patient's medical care. Late signature. Date of Service: Oct 19, 2024 Billing Provider: SUNI BAJWA MD Common Visit Codes: [id number] INP/OBS CARE(HIGH) CECI ACOSTA RESIDENT Oct 19, 2024 19:10 SUNI BAJWA MD Oct 20, 2024 05:42
[2024-10-19] MEDS: LISINOPRIL 5 MG TAB PO SCH (22:26)
[2024-10-20 01:00] VITALS: BP 124/72; PULSE 56; RESP 15; TEMP 98; O2SAT 98
[2024-10-20 05:00] VITALS: BP 151/80; PULSE 58; RESP 16; TEMP 98.1; O2SAT 100
[2024-10-20 08:43] VITALS: BP 120/75; PULSE 60; RESP 17; TEMP 97; O2SAT 100
[2024-10-20 11:59] LABS: Hepatitis B Surface Antigen Negative (Negative); Hepatitis C Antibody Negative (Negative)
[2024-10-20 13:00] VITALS: BP 102/56; PULSE 64; RESP 18; TEMP 96.3; O2SAT 97
--- NOTE | 2024-10-20 15:17 | DVHINCON2 ---
Date Seen: Oct 20, 2024 Reason for Consultation Right 2nd toe pain History of Present Illness 59-year-old female with past medical history of HIV (on antiretrovirals with undetectable viral load), DM type 2 insulin-dependent, CKD stage 3, hypertension, GERD, chronic respiratory failure, history of AFib on Eliquis,pres ents with right 2nd toe pain with associated ecchymosis for the past 3 days. She states she bent down to pick something up when she heard and felt a "pop" in the toe. She denies trauma, fever, chills, nausea, vomiting, shortness of breath, chest pain, recent illness, or sick contacts. Past Medical History See H&P Past Surgical History See H&P Family History: Cardiovascular disease G8 FATHER Diabetes mellitus G8 SISTER Suicide G8 BROTHER Allergies: Coded Allergies: Loperamide (Verified Allergy, Severe, 08/13/23) Nystatin (Verified Allergy, Severe, 08/13/23) Penicillins (Verified Allergy, Severe, 08/13/23) Diphenhydramine (Verified Allergy, Unknown, 09/23/24) Home Meds Active Scripts Flecainide Acetate (TAMBOCOR TABLET) 50 Mg Tb, 50 MG PO Q12HR for 30 Days, #60 TAB Prov:RAINER DIAZ WIRE BENDER 08/15/23 Reported Medications Amiodarone HCl (Amiodarone HCl) 200 Mg Tab, 1 TAB PO BID for 90 Days, #180 08/18/24 Insulin Glargine (Basaglar Kwikpen) 100 Unit/Ml Inj, 100 UNITS SC BID for 30 Days, #60 08/18/24 Insulin Lispro (Insulin Lispro Kwikpen) 100 Unit/Ml Inj, 10 UNITS SC DAILY for 100 Days, #15 08/18/24 Cetirizine HCl (Cetirizine Hydrochloride) 10 Mg Tab, 1 TAB PO DAILY for 90 Days, #90 08/18/24 Dapagliflozin Propanediol (Dapagliflozin Propanediol) 5 Mg Tab, 1 TAB PO DAILY for 100 Days, #100 08/18/24 Ferrous Sulfate (Ferosul) 325 Mg Tab, 1 TAB PO DAILY for anemia 06/08/24 Pjvjstra-Jvceyszicsxc-Gjdaacjk (Triumeq 600-50-300 mg) 1 Tab Tab, 1 TAB PO DAILY for 30 Days, #30 06/08/24 Sitagliptin Phosphate (Januvia) 100 Mg Tab, 1 DAILY for 90 Days, #90 06/08/24 Metoprolol Tartrate (Metoprolol Tartrate) 25 Mg Tab, 25 MG PO DAILY for 90 Days, #90 06/06/24 Fenofibrate (FENOFIBRATE) 145 Mg Tab, 1 TAB PO DAILY for 90 Days, #90 06/06/24 Potassium Chloride (POTASSIUM CHLORIDE CR) 10 Meq Tb, 1 TAB PO DAILY for 30 Days, #30 06/06/24 Cyclobenzaprine HCl (Cyclobenzaprine Hydrochlo) 10 Mg Tab, 1 TAB PO BID PRN for PAIN FOR MUSCLE SPASMS for 30 Days, #15 08/13/23 Famotidine (Famotidine) 20 Mg Tab, 1 TAB PO BID PRN for ACID REFLUX AND ABDOMINAL PAIN for 90 Days, #180 08/13/23 Furosemide (Furosemide) 40 Mg Tab, 1 TAB PO DAILY for 90 Days, #90 08/13/23 Hydrocodone-Acetaminophen (Hydrocodone/Acetaminophen 5-325 mg) 1 Tab Tab, 2 TAB PO BID 08/13/23 Pregabalin (Pregabalin) 200 Mg Cap, 1 CAP PO TID for 30 Days, #90 08/13/23 Lisinopril (Lisinopril) 2.5 Mg Tab, 1 TAB PO DAILY for 90 Days, #90 08/13/23 Apixaban Base (ELIQUIS) 5 Mg Tab, 1 TAB PO BID for 45 Days, #90 08/13/23 Aspirin (Aspirin) 81 Mg Chw, 1 TAB PO DAILY for 90 Days, #90 08/13/23 Atorvastatin Calcium (ATORVASTATIN CALCIUM) 40 Mg Tab, 1 TAB PO DAILY for 90 Days, #90 08/13/23 Current Medications Current Medications Medications (Trade) Dose Ordered Sig/Uyen Route PRN Reason Start Time Stop Time Status Last Admin Lisinopril (Zestril Tablet) 2.5 mg DAILY PO 10/19/24 22:00 10/20/24 09:07 Vital Signs Vital Signs Date Time Temp Pulse Resp B/P (MAP) Pulse Ox O2 Delivery O2 Flow Rate FiO2 10/20/24 09:07 116/69 10/20/24 08:43 97.0 60 17 100 97.0 10/20/24 08:00 Room Air* 0 21 Physical Exam Dermatological: Skin is dry with mild erythema and some maceration around the wound site No gross deformities noted Mild non-pitting edema present bilaterally Blister right 2nd toe Vascular: Dorsalis pedis and posterior tibial pulses are 1+ bilaterally Capillary refill is under 2 seconds Skin temperature is warm bilaterally Neurologic: Protective sensation is absent on the plantar forefoot bilaterally Monofilament testing reveals decreased sensation in multiple plantar sites Musculoskeletal: Range of motion at the ankle and MTP joints is within normal limits. Strength is 5/5 in all tested muscle groups. Gait is antalgic due to offloading of the affected limb. Labs/Diagnostic Data Labs Test 10/20/24 12:08 10/19/24 05:33 10/18/24 14:15 10/18/24 05:56 Range/Units POC Glucose 152 H 70-106 mg/dl White Blood Count 4.4 4.4-10.8 10^3/uL Red Blood Count 4.59 4.0-5.20 10^6/uL Hemoglobin 10.5 L 12.2-16.2 g/dL Hematocrit 33.3 L 36.0-46.0 % Mean Corpuscular Volume 72.4 L 80.0-100.0 fL Mean Corpuscular Hemoglobin 22.9 L 28.0-32.0 pg Mean Corpuscular Hemoglobin Concent 31.6 L 32.0-36.0 g/dL Red Cell Distribution Width 18.5 H 11.8-14.3 % Platelet Count 95 L 140-450 10^3/uL Mean Platelet Volume 10.3 6.9-10.8 fL Neutrophils (%) (Auto) 67.3 37.0-80.0 % Lymphocytes (%) (Auto) 15.8 10.0-50.0 % Monocytes (%) (Auto) 8.7 0.0-12.0 % Eosinophils (%) (Auto) 6.8 0.0-7.0 % Basophils (%) (Auto) 1.4 0.0-2.0 % Neutrophils # (Auto) 3.0 1.6-8.6 10 ^3/uL Lymphocytes # (Auto) 0.7 0.4-5.4 10 ^3/uL Monocytes # (Auto) 0.4 0-1.3 10 ^3/uL Eosinophils # (Auto) 0.3 0-0.8 10 ^3/uL Basophils # (Auto) 0.1 0-0.2 10 ^3/uL Nucleated Red Blood Cells 0.0 % Sodium Level 142 136-145 mmol/L Potassium Level 3.7 3.5-5.1 mmol/L Chloride Level 109 H 98-107 mmol/L Carbon Dioxide Level 27 20-31 mmol/L Anion Gap 6 5-15 Blood Urea Nitrogen 17 9-23 mg/dL Creatinine 1.28 H 0.550-1.02 mg/dL Glomerular Filtration Rate Calc 48 >90 mL/min BUN/Creatinine Ratio 13.3 10.0-20.0 Serum Glucose 166 H 74-106 mg/dL Calcium Level 10.0 8.7-10.4 mg/dL Urine Color Light-yellow Yellow Urine Clarity Clear Clear Urine pH 6.5 5.0-9.0 Urine Specific [place] 1.020 1.001-1.035 Urine Protein Negative Negative Urine Ketones Negative Negative Urine Blood Negative Negative /uL Urine Nitrite Negative Negative Urine Bilirubin Negative Negative Urine Urobilinogen Normal Negative mg/dL Urine Leukocyte Esterase Negative Negative /uL Urine RBC <1 0 - 4 /hpf Urine Microscopic WBC 1 0-5 /HPF Urine Squamous Epithelial Cells Few <5 /hpf Urine Bacteria Few H None Seen /hpf Urine Glucose 4+ H Normal mg/dL Urine Opiates Screen Neg NEGATIVE Urine Fentanyl Screen Neg NEGATIVE Urine Barbiturates Screen Neg NEGATIVE Urine Phencyclidine Screen Neg NEGATIVE Urine Amphetamines Screen Neg NEGATIVE Urine Benzodiazepines Screen Neg NEGATIVE Urine Cocaine Screen Neg NEGATIVE Urine Cannabinoids Screen Neg NEGATIVE Hemoglobin A1c 9.3 H <5.7 % A1C Total Bilirubin 0.3 0.2-1.0 mg/dL Aspartate Amino Transferase (AST) 38 13-40 U/L Alanine Aminotransferase (ALT) 32 7-40 U/L Alkaline Phosphatase 68 46-116 U/L Total Protein 7.0 5.7-8.2 g/dL Albumin 4.1 3.2-4.8 g/dL Thyroid Stimulating Hormone (TSH) 1.19 0.55-4.78 uIU/mL Hepatitis B Surface Antigen Negative Negative Hepatitis C Antibody Negative Negative Test 10/17/24 18:56 10/17/24 14:04 Range/Units Blood Gas Specimen Type Arterial Blood Gas Sample Site Right radial Blood Gas Patient Temperature 37.0 Arterial Blood Date Drawn [id number] Arterial Blood pH 7.472 H 7.350-7.450 Arterial Blood Partial Pressure CO2 36.0 32.0-45.0 mmHg Arterial Blood Partial Pressure O2 94.1 83.0-108.0 mmHg Arterial Blood HCO3 25.7 21.0-28.0 mmol/L Arterial Blood Oxygen Saturation 97.3 94.0-98.0 % Arterial Blood Base Excess 2.3 -2.0-3.0 mmol/L Arterial Blood Oxyhemoglobin 93.6 L 94.0-98.0 % Arterial Blood Carboxyhemoglobin 3.4 H 0.5-1.5 % Arterial Blood Methemoglobin 0.4 0.0-1.5 % Anish Test Yes Blood Gas Total Hemoglobin 12.00 12.0-16.0 g/dL Blood Gas Liter Flow 2.00 Blood Gas Modality Nasal cannula FiO2 % 28.0 Magnesium Level 2.1 1.6-2.6 mg/dL B-Type Natriuretic Peptide 42.15 0-100 pg/mL Microbiology Date/Time Source Procedure Growth Status 10/18/24 06:15 Nose MRSA Screen - Final Complete 10/17/24 22:49 Blood Blood Culture - Preliminary NO GROWTH AFTER 48 HOURS OF INCUBATION. Resulted Problems(with codes): (1) Renal failure (2) Elevated d-dimer (3) Foot ulcer (4) Acute coronary syndrome (5) Uncontrolled diabetes mellitus (6) Acute chest pain (7) Epistaxis (8) Weakness (9) Encounter for smoking cessation counseling (10) Contusion of upper arm, left (11) Occasional tremors (12) Cellulitis of second toe, right (13) Anemia in chronic kidney disease (CKD) (14) Diabetic nephropathy associated with diabetes mellitus due to underlying condition (15) Generalized weakness Plan/Recommendation ASSESSMENT: Patient is a 5-year-old seen for a right 2nd toe blister PLAN: - The patients chart was reviewed, clinical findings were discussed with the patient, the etiologies of the conditions were discussed in detail, and a treatment plan was agreed to at this time, with both oral and written instructions provided. - reviewed advanced imaging - discussed it appears to be a fracture blister - discussed no need to be on antibiotics or to pop the blister - no dressings needed at this point - can follow up with me as an outpatient in 1-2 weeks All questions were answered and concerns addressed to the patient's satisfaction. The patient was given the phone number to the clinic and was told how to make contact with the clinic should any concerns or questions arise. Patient understands that if any questions or concerns arise prior to the next appointment, we should be contacted immediately. FOLLOW-UP: Continue to follow while inpatient Plan discussed with: Patient Date of Service: Oct 20, 2024 Billing Provider: JUAN BILLY DPM Common Visit Codes: CONSULT ONLY Consultation Codes: [id number] CONSULT <80MIN JUAN BILLY DPM Oct 20, 2024 15:17
[2024-10-20 16:16] VITALS: BP 102/56; PULSE 64; RESP 18; TEMP 96.3; O2SAT 97
--- NOTE | 2024-10-20 23:48 | DVHDSRES ---
Discharge Summary Date of Admission Resident Creating Document: FELICE BELL RESIDENT October 17, 2024 at 21:15 Date of Discharge: Oct 20, 2024 Admitting Diagnosis #sp mechanical fall Labs/Diagnostic Data: Laboratory Results Test 10/20/24 12:08 10/19/24 05:33 10/18/24 14:15 10/18/24 05:56 POC Glucose 152 mg/dl (70-106) White Blood Count 4.4 10^3/uL (4.4-10.8) Red Blood Count 4.59 10^6/uL (4.0-5.20) Hemoglobin 10.5 g/dL (12.2-16.2) Hematocrit 33.3 % (36.0-46.0) Mean Corpuscular Volume 72.4 fL (80.0-100.0) Mean Corpuscular Hemoglobin 22.9 pg (28.0-32.0) Mean Corpuscular Hemoglobin Concent 31.6 g/dL (32.0-36.0) Red Cell Distribution Width 18.5 % (11.8-14.3) Platelet Count 95 10^3/uL (140-450) Mean Platelet Volume 10.3 fL (6.9-10.8) Neutrophils (%) (Auto) 67.3 % (37.0-80.0) Lymphocytes (%) (Auto) 15.8 % (10.0-50.0) Monocytes (%) (Auto) 8.7 % (0.0-12.0) Eosinophils (%) (Auto) 6.8 % (0.0-7.0) Basophils (%) (Auto) 1.4 % (0.0-2.0) Neutrophils # (Auto) 3.0 10 ^3/uL (1.6-8.6) Lymphocytes # (Auto) 0.7 10 ^3/uL (0.4-5.4) Monocytes # (Auto) 0.4 10 ^3/uL (0-1.3) Eosinophils # (Auto) 0.3 10 ^3/uL (0-0.8) Basophils # (Auto) 0.1 10 ^3/uL (0-0.2) Nucleated Red Blood Cells 0.0 % Sodium Level 142 mmol/L (136-145) Potassium Level 3.7 mmol/L (3.5-5.1) Chloride Level 109 mmol/L (98-107) Carbon Dioxide Level 27 mmol/L (20-31) Anion Gap 6 (5-15) Blood Urea Nitrogen 17 mg/dL (9-23) Creatinine 1.28 mg/dL (0.550-1.02) Glomerular Filtration Rate Calc 48 mL/min (>90) BUN/Creatinine Ratio 13.3 (10.0-20.0) Serum Glucose 166 mg/dL (74-106) Calcium Level 10.0 mg/dL (8.7-10.4) Urine Color Light-yellow (Yellow) Urine Clarity Clear (Clear) Urine pH 6.5 (5.0-9.0) Urine Specific [place] 1.020 (1.001-1.035) Urine Protein Negative (Negative) Urine Ketones Negative (Negative) Urine Blood Negative /uL (Negative) Urine Nitrite Negative (Negative) Urine Bilirubin Negative (Negative) Urine Urobilinogen Normal mg/dL (Negative) Urine Leukocyte Esterase Negative /uL (Negative) Urine RBC <1 /hpf (0 - 4) Urine Microscopic WBC 1 /HPF (0-5) Urine Squamous Epithelial Cells Few /hpf (<5) Urine Bacteria Few /hpf (None Seen) Urine Glucose 4+ mg/dL (Normal) Urine Opiates Screen Neg (NEGATIVE) Urine Fentanyl Screen Neg (NEGATIVE) Urine Barbiturates Screen Neg (NEGATIVE) Urine Phencyclidine Screen Neg (NEGATIVE) Urine Amphetamines Screen Neg (NEGATIVE) Urine Benzodiazepines Screen Neg (NEGATIVE) Urine Cocaine Screen Neg (NEGATIVE) Urine Cannabinoids Screen Neg (NEGATIVE) Hemoglobin A1c 9.3 % A1C (<5.7) Total Bilirubin 0.3 mg/dL (0.2-1.0) Aspartate Amino Transferase (AST) 38 U/L (13-40) Alanine Aminotransferase (ALT) 32 U/L (7-40) Alkaline Phosphatase 68 U/L (46-116) Total Protein 7.0 g/dL (5.7-8.2) Albumin 4.1 g/dL (3.2-4.8) Thyroid Stimulating Hormone (TSH) 1.19 uIU/mL (0.55-4.78) Hepatitis B Surface Antigen Negative (Negative) Hepatitis C Antibody Negative (Negative) Test 10/17/24 18:56 10/17/24 14:04 Blood Gas Specimen Type Arterial Blood Gas Sample Site Right radial Blood Gas Patient Temperature 37.0 Arterial Blood Date Drawn [id number] Arterial Blood pH 7.472 (7.350-7.450) Arterial Blood Partial Pressure CO2 36.0 mmHg (32.0-45.0) Arterial Blood Partial Pressure O2 94.1 mmHg (83.0-108.0) Arterial Blood HCO3 25.7 mmol/L (21.0-28.0) Arterial Blood Oxygen Saturation 97.3 % (94.0-98.0) Arterial Blood Base Excess 2.3 mmol/L (-2.0-3.0) Arterial Blood Oxyhemoglobin 93.6 % (94.0-98.0) Arterial Blood Carboxyhemoglobin 3.4 % (0.5-1.5) Arterial Blood Methemoglobin 0.4 % (0.0-1.5) Anish Test Yes Blood Gas Total Hemoglobin 12.00 g/dL (12.0-16.0) Blood Gas Liter Flow 2.00 Blood Gas Modality Nasal cannula FiO2 % 28.0 Magnesium Level 2.1 mg/dL (1.6-2.6) B-Type Natriuretic Peptide 42.15 pg/mL (0-100) Other Laboratory Tests 10/19/24 05:33 Brief Hx & Hospital Course: Reason for Admission: Right second toe pain with ecchymosis and concern for cellulitis in the setting of multiple comorbidities. History of Present Illness: 59-year-old female with a history of HIV on antiretrovirals with undetectable viral load, DM type 2 insulin-dependent, CKD stage 3, hypertension, chronic respiratory failure, GERD, atrial fibrillation on Eliquis, and heart failure with preserved EF presented with 3-day history of right second toe pain with associated ecchymosis. She reported stepping down and hearing a pop before the onset of pain. She denied trauma, fever, or systemic symptoms. Hospital Course: Patient was admitted for suspected cellulitis. She was started on Ceftriaxone and Clindamycin with improvement. Sepsis and fracture were ruled out. Toe was evaluated by podiatry, who assessed the lesion as a fracture blister requiring no antibiotics or wound care. No debridement was needed. Patient remained afebrile, hemodynamically stable, and oxygen requirements remained stable on nasal cannula at 2L. Enoxaparin was held during initial days due to concern for low HR and sepsis but was later resumed. Blood pressure medications were held initially and then resumed as tolerated. Glycemic control was managed with sliding scale insulin. Renal function remained stable. No signs of heart failure exacerbation were noted. Patient tolerated oral intake and ambulated with assistance. Discharge Condition: Stable. Tolerating oral intake. Pain controlled. No signs of active infection or systemic symptoms. Gen - no pallor, no icterus, no cyanosis, no clubbing, no LAD, no edema . Morbidly obese Skin - Patients skin is warm and dry. HEENT - normocephalic, atraumatic, moist mucous membranes. Neck - full ROM, no LAD, no JVD Pulmonary - B/L equal breath sounds, no crackles, no wheezing, no stridor. cardiovascular - S1,S2 heard, no added sounds, no murmurs heard. peripheral pulses normal radial 2+, pedal 2+. capillary refill normal <2 secs. GI - soft, nontender abdomen. no hepatosplenomegaly. Bowel sounds normoactive Extremities- right 2nd toe swollen and tender to touch Neurological - Patient is A/O X 3 . Bilateral upper extremity strength 5/5, bilateral lower extremity strength 5/5, no facial droop, normal speech, no tremor, no focal deficits. Case discussed with Dr Henson full code Consults/Reason for consult warp hanger due to toe trauma Condition at Discharge: Stable Final Diagnosis/Problems List #sp mechanical fall #Sepsis? #cellulitis in the 2 toe of right foot #Fracture blister, stable #Fracture ruled out #HIV on antiretrovirals #Undetectable viral load #TOÑA due to VMN on CKD stage 3 #H/o of Atrial fibrillation on eliquis #Diabetes mellitus type 2 #Chronic respiratory failure #Hyperintensive heart disease with diastolic dysfunction, stable #Peripheral arterial disease Discharge Disposition: Home Discharge Instruct/Medications Diet: Consistent carbohydrate Activity: Light activity Follow Up/Referral: fu with pcp in 1 week, fu with Dr Kirby warp hanger in 1 week Medications: resume home meds Discharge Statement: "Patient was advised to return to the ER or call 911 if any headaches, dizziness, shortness of breath, chest pain, abdominal pain, bleeding, fevers, or worsening of medical condition. Patient was counseled about treatment plan, medications, possible side effects, patientverbalized understanding. All questions were answered to the best of my ability. This discharge took greater then 30 minutes in planning, reviewing documentation, counseling the patient, and discussing with other team members." ASSESSMENT ASSESSMENT Assessment leg foot trauma Date of Service: Oct 20, 2024 Billing Provider: LUCRECIA HENSON MD Common Visit Codes: 00617-SIC/OBS DISCH DAY >30min FELICE BELL RESIDENT Oct 20, 2024 23:48 LUCRECIA HENSON MD Oct 21, 2024 09:26
== END 2024-10-20 17:42 | disposition home or self-care (01) | DRG 720 ==
LOC: EDBD 12:36 → ER 12:39 → OVERFLOW 21:15 → WEST WING 21:22
PROVIDERS: ADMIT Student in an Organized Health Care Education/Training Program; ATTEND Emergency Medicine
DX: A41.9 Sepsis, unspecified organism (principal); N17.0 Acute kidney failure with tubular necrosis; J96.10 Chronic respiratory failure, unspecified whether with hypoxia or hypercapnia; D63.1 Anemia in chronic kidney disease; E11.22 Type 2 diabetes mellitus with diabetic chronic kidney disease; L03.031 Cellulitis of right toe; E11.51 Type 2 diabetes mellitus with diabetic peripheral angiopathy without gangrene; N18.30 Chronic kidney disease, stage 3 unspecified; I77.1 Stricture of artery; I12.9 Hypertensive chronic kidney disease with stage 1 through stage 4 chronic kidney disease, or unspecified chronic kidney disease; I48.91 Unspecified atrial fibrillation; F17.210 Nicotine dependence, cigarettes, uncomplicated; S90.424A Blister (nonthermal), right lesser toe(s), initial encounter; Z79.4 Long term (current) use of insulin; I48.0 Paroxysmal atrial fibrillation; I50.32 Chronic diastolic (congestive) heart failure; K21.9 Gastro-esophageal reflux disease without esophagitis; Z90.49 Acquired absence of other specified parts of digestive tract; Z83.3 Family history of diabetes mellitus; Z82.49 Family history of ischemic heart disease and other diseases of the circulatory system; Z79.899 Other long term (current) drug therapy; Z79.01 Long term (current) use of anticoagulants; Z88.0 Allergy status to penicillin; W18.39XA Other fall on same level, initial encounter; Y93.89 Activity, other specified; Y92.89 Other specified places as the place of occurrence of the external cause; Y99.8 Other external cause status
CPT/HCPCS: 36415; 36600; 71045; 73700; 80048; 80053; 80307; 81001; 82805; 82962; 83036; 83735; 83880; 84443; 85025; 86803; 87040; 87081; 87340; 93925; 96365; G0378; J1815; J3490

== ENCOUNTER 2024-11-08 21:10 | Inpatient (IN) | payer MEDICAID ==
[~2024-11-08] VITALS: Ht 160 cm; Wt 106.0 kg
[~2024-11-08 21:10] MED LIST changes: -FLE50T PO
--- NOTE | 2024-11-08 21:31 | ED.PDOC ---
History of Present Illness HPI Comments 59-year-old female comes to ER by EMS with shortness of breath and chest pain concerns since yesterday. Patient has multiple comorbidities including a history of HIV on antiretrovirals with undetectable viral load, DM type 2 insulin-dependent, CKD stage 3, hypertension, chronic respiratory failure, GERD, atrial fibrillation on Eliquis, and congestive heart failure. Complaining of dizziness, chest discomfort and shortness a breath for the past hour prior to coming here. Patient is a very poor historian. Vital signs were stable on arrival. Chief Complaint: Shortness of Breath Time Seen by MD: 21:30 Primary Care Provider: unknown Reviewed Notes: Nurses Notes, Bell [employer]inner Sousaphones Notes Allergies: Coded Allergies: Loperamide (Verified Allergy, Severe, 08/13/23) Nystatin (Verified Allergy, Severe, 08/13/23) Penicillins (Verified Allergy, Severe, 08/13/23) Diphenhydramine (Verified Allergy, Unknown, 09/23/24) Home Meds Reported Medications Amiodarone HCl (Amiodarone HCl) 200 Mg Tab, 1 TAB PO BID for 90 Days, #180 08/18/24 Insulin Glargine (Basaglar Kwikpen) 100 Unit/Ml Inj, 100 UNITS SC BID for 30 Days, #60 08/18/24 Insulin Lispro (Insulin Lispro Kwikpen) 100 Unit/Ml Inj, 10 UNITS SC DAILY for 100 Days, #15 08/18/24 Cetirizine HCl (Cetirizine Hydrochloride) 10 Mg Tab, 1 TAB PO DAILY for 90 Days, #90 08/18/24 Dapagliflozin Propanediol (Dapagliflozin Propanediol) 5 Mg Tab, 1 TAB PO DAILY for 100 Days, #100 08/18/24 Ferrous Sulfate (Ferosul) 325 Mg Tab, 1 TAB PO DAILY for anemia 06/08/24 Hiscbwpg-Ehdwqrwwtgki-Jgwrbtqg (Triumeq 600-50-300 mg) 1 Tab Tab, 1 TAB PO DAILY for 30 Days, #30 06/08/24 Sitagliptin Phosphate (Januvia) 100 Mg Tab, 1 DAILY for 90 Days, #90 06/08/24 Metoprolol Tartrate (Metoprolol Tartrate) 25 Mg Tab, 25 MG PO DAILY for 90 Days, #90 06/06/24 Fenofibrate (FENOFIBRATE) 145 Mg Tab, 1 TAB PO DAILY for 90 Days, #90 06/06/24 Potassium Chloride (POTASSIUM CHLORIDE CR) 10 Meq Tb, 1 TAB PO DAILY for 30 Days, #30 06/06/24 Cyclobenzaprine HCl (Cyclobenzaprine Hydrochlo) 10 Mg Tab, 1 TAB PO BID PRN for PAIN FOR MUSCLE SPASMS for 30 Days, #15 08/13/23 Famotidine (Famotidine) 20 Mg Tab, 1 TAB PO BID PRN for ACID REFLUX AND ABDOMINAL PAIN for 90 Days, #180 08/13/23 Furosemide (Furosemide) 40 Mg Tab, 1 TAB PO DAILY for 90 Days, #90 08/13/23 Hydrocodone-Acetaminophen (Hydrocodone/Acetaminophen 5-325 mg) 1 Tab Tab, 2 TAB PO BID 08/13/23 Pregabalin (Pregabalin) 200 Mg Cap, 1 CAP PO TID for 30 Days, #90 08/13/23 Lisinopril (Lisinopril) 2.5 Mg Tab, 1 TAB PO DAILY for 90 Days, #90 08/13/23 Apixaban Base (ELIQUIS) 5 Mg Tab, 1 TAB PO BID for 45 Days, #90 08/13/23 Aspirin (Aspirin) 81 Mg Chw, 1 TAB PO DAILY for 90 Days, #90 08/13/23 Atorvastatin Calcium (ATORVASTATIN CALCIUM) 40 Mg Tab, 1 TAB PO DAILY for 90 Days, #90 08/13/23 Information Source: Patient, Emergency Med Personnel Mode of Arrival: EMS Severity: Moderate Timing: Hours Duration: Since onset Prehospital treatment: Oxygen Past Medical History PAST MEDICAL HISTORY: CHF, CKF, DM, HIV, HTN, Seizures Surgical History: Cholecystectomy, Hernia Repair, Thyroidectomy PATHOLOGY SPECIALIST History: No Pertinent PATHOLOGY SPECIALIST History Family History Family History: Reviewed,noncontributory to illness, Unknown Social History Smoker: Cigarettes Alcohol: Denies ETOH Use Drugs: Denies Drug Use Lives In: Home Constitutional: reports: weakness; denies: chills, diaphoresis, fatigue, fever, malaise, sweats, others EENTM: denies: blurred vision, double vision, ear bleeding, ear discharge, ear drainage, ear pain, ear ringing, eye pain, eye redness, hearing loss, mouth pain, mouth swelling, nasal discharge, nose bleeding, nose congestion, nose pain, photophobia, tearing, throat pain, throat swelling, voice changes, others Respiratory: reports: SOB at rest, shortness of breath; denies: cough, h emoptysis, orthopnea, SOB with excertion, stridor, wheezing, others Cardiovascular: reports: chest pain; denies: dizzy spells, diaphoresis, Dyspnea on exertion, edema, irregular heart beat, left arm pain, lightheadedness, palpitations, PND, syncope, others Gastrointestinal: denies: abdomen distended, abdominal pain, blood streaked bowels, constipated, diarrhea, dysphagia, difficulty swallowing, hematemesis, melena, nausea, poor appetite, poor fluid intake, rectal bleeding, rectal pain, vomiting, others Genitourinary: denies: abnormal vagina bleeding, burning, dyspareunia, dysuria, flank pain, frequency, hematuria, incontinence, pain, , vagina discharge, urgency, others Neurological: denies: dizziness, fainting, headache, left sided numbness, left sided weakness, numbness, paresthesia, pre-existing deficit, right sided numbness, right sided weakness, seizure, speech problems, tingling, tremors, weakness, others Musculoskeletal: denies: back pain, gout, joint pain, joint swelling, muscle pain, muscle stiffness, neck pain, others Integumetry: denies: bruises, change in color, change in hair/nails, dryness, laceration, lesions, lumps, rash, wounds, others Allergic/Immunocompromised: denies: Difficulty Healing, Frequent Infections, Hives, Itching, others Hematologic/Lymphatic: denies: anemia, blood clots, easy bleeding, easy bruising, swollen glands, others Endocrine: denies: excessive hunger, excessive sweating, excessive thirst, excessive urination, flushing, intolerance to cold, intolerance to heat, unexplained weight gain, unexplained weight loss, others Psychiatric: denies: anxiety, bipolar disorder, depression, hopeless, panic disorder, schizophrenia, sleepless, suicidal, others Physical Exam General Appearance: Moderate Distress (Moderate distress due to chest pain and shortness a breath concerns.), Normal HEENT: Normal ENT Inspection, Pharynx Normal, TMs Normal Neck: Full Range of Motion, Non-Tender, Normal, Normal Inspection Respiratory: No Accessory Muscle Use, No Respiratory Distress, Other (Patchy rhonchi appreciated in bilateral lung porter. No accessory muscle use. Patient complains of tenderness to palpation in the inferior substernal region. No signs of trauma.) Cardiovascular: No Edema, No JVD, No Murmur, No Gallop, Normal Peripheral Pulses, Regular Rate/Rhythm Breast Exam: Deferred Gastrointestinal: No Organomegaly, Non Tender, No Pulsatile Mass, Normal Bowel Sounds, Soft Genitalia: Deferred Pelvic: Deferred Rectal: Deferred Extremities: No calf tenderness, Normal capillary refill, Normal inspection, Normal range of motion, Non-tender, No pedal edema Musculoskeletal : Apperance: Normal Neurologic: Alert, No Motor Deficits, Normal Affect, Normal Mood, No Sensory Deficits Cerebellar Function: Normal Reflexes: Normal Skin: Dry, Normal Color, Warm Lymphatic: No Adenopathy Was a procedure done? Was a procedure done?: No Differential Dx Considerations may include: Anemia, electrolyte imbalance, CHF, COPD, pneumonia, HIV, sepsis, acute coronary syndrome, lung neoplasm, anxiety X-Ray, Labs, Meds, VS Vital Signs Date Time Temp Pulse Resp B/P (MAP) Pulse Ox O2 Delivery O2 Flow Rate FiO2 11/08/24 23:26 55 20 100 Room Air 11/08/24 23:26 98.0 55 20 100/64 (76) 100 98.0 11/08/24 21:26 98.0 62 20 115/73 (87) 99 98.0 11/08/24 21:13 62 Lab Test 11/08/24 23:20 11/08/24 22:10 11/08/24 21:20 Range/Units Lactic Acid Level 2.4 *H 3.9 *H 0.4-2.0 mmol/L Troponin I High Sensitivity 3 L 3 L </=34 ng/L White Blood Count 6.7 4.4-10.8 10^3/uL Red Blood Count 5.38 H 4.0-5.20 10^6/uL Hemoglobin 13.0 12.2-16.2 g/dL Hematocrit 40.1 36.0-46.0 % Mean Corpuscular Volume 74.6 L 80.0-100.0 fL Mean Corpuscular Hemoglobin 24.1 L 28.0-32.0 pg Mean Corpuscular Hemoglobin Concent 32.4 32.0-36.0 g/dL Red Cell Distribution Width 22.4 H 11.8-14.3 % Platelet Count 142 140-450 10^3/uL Mean Platelet Volume 9.6 6.9-10.8 fL Neutrophils (%) (Auto) 78.3 37.0-80.0 % Lymphocytes (%) (Auto) 11.2 10.0-50.0 % Monocytes (%) (Auto) 5.9 0.0-12.0 % Eosinophils (%) (Auto) 3.3 0.0-7.0 % Basophils (%) (Auto) 1.3 0.0-2.0 % Neutrophils # (Auto) 5.2 1.6-8.6 10 ^3/uL Lymphocytes # (Auto) 0.8 0.4-5.4 10 ^3/uL Monocytes # (Auto) 0.4 0-1.3 10 ^3/uL Eosinophils # (Auto) 0.2 0-0.8 10 ^3/uL Basophils # (Auto) 0.1 0-0.2 10 ^3/uL Nucleated Red Blood Cells 0.1 % Sodium Level 137 136-145 mmol/L Potassium Level 3.2 L 3.5-5.1 mmol/L Chloride Level 102 98-107 mmol/L Carbon Dioxide Level 22 20-31 mmol/L Anion Gap 13 5-15 Blood Urea Nitrogen 20 9-23 mg/dL Creatinine 1.51 H 0.550-1.02 mg/dL Glomerular Filtration Rate Calc 39 >90 mL/min BUN/Creatinine Ratio 13.2 10.0-20.0 Serum Glucose 291 H 74-106 mg/dL Calcium Level 9.5 8.7-10.4 mg/dL Total Bilirubin 0.3 0.2-1.0 mg/dL Aspartate Amino Transferase (AST) 55 H <34 U/L Alanine Aminotransferase (ALT) 44 H 7-40 U/L Alkaline Phosphatase 78 46-116 U/L Total Protein 7.5 5.7-8.2 g/dL Albumin 4.6 3.2-4.8 g/dL Lipase 87 H 12-53 U/L Current Medications Medications (Trade) Dose Ordered Sig/Uyen Route Start Time Stop Time Status Last Admin Meclizine HCl (Antivert Tablet) 25 mg ONCE ONCE PO 11/08/24 21:30 11/08/24 21:31 DC 11/08/24 23:30 Ketorolac Tromethamine (Toradol Injection) 30 mg ONCE ONCE IV 11/08/24 21:30 11/08/24 21:31 DC 11/08/24 23:31 Ondansetron HCl (Zofran) 4 mg ONCE ONCE IV 11/08/24 21:30 11/08/24 21:31 DC 11/08/24 23:31 Potassium Bicarbonate (Klor-Con/Ef) 25 meq ONCE ONCE PO 11/08/24 22:30 11/08/24 22:31 DC 11/08/24 23:31 Sodium Chloride 1,000 ml @ 1,000 mls/hr Q1H ONCE IV 11/08/24 22:30 11/08/24 23:29 DC 11/08/24 23:30 X-Ray, Labs, Meds, VS Comment All studies performed the ED were evaluated by me personally. Serum studies revealed an elevated lipase indicative of a pancreatitis, transaminitis, elevated lactic acid, hyperglycemia and hypokalemia. EKG was remarkable for a sinus rhythm with a rate of 62. Possible posterior fascicular block, abnormal R-wave progression and minimal ST elevation in anterior leads. WA interval of 170 and QT interval of 452. Chest x-ray revealed an increased bronchovascular markings in both lungs indicative of her COPD condition. Patient will be admitted for management of her pancreatitis as well as possible cardiac evaluation as the patient continued to display bradycardia. Patient may have sick sinus syndrome and cardiac evaluation for possible pacemaker is needed. Time of 1ST Reevaluation: 00:18 Reevaluation 1ST: Improved Consultation: PCP Patient Education/Counseling: Diagnosis, Treatment Family Education/Counseling: Diagnosis, Treatment, No Family Present SEPSIS Sepsis Screen Recent Procedure: No On Antibiotic Therapy: No Respiratory Rate >20: No Heart Rate >90: No Temp<36 C (96.8 F) or >38.3 C: No SBP <90 or MAP <65 mmHG: No New Acute Mental Status Change: No Is the patient on CPAP, BIPAP,: No Physician Orders Heplock Iv (11/08/24 ) Blood Culture (11/08/24 21:18) Troponin-I Hs (11/09/24 00:18) Electrocardigram (11/08/24 21:18) Electrocardigram (11/08/24 22:18) Electrocardigram (11/09/24 00:18) Chest Portable (11/08/24 21:18) Heplock Iv (11/08/24 ) Potassium Chl 20meq/100ml (11/08/24 22:30) Vital Signs Date Time Temp Pulse Resp B/P (MAP) Pulse Ox O2 Delivery O2 Flow Rate FiO2 11/08/24 23:26 55 20 100 Room Air 11/08/24 23:26 98.0 55 20 100/64 (76) 100 98.0 11/08/24 21: 98.0 62 20 115/73 (87) 99 98.0 11/08/24 21:13 62 Laboratory Tests Test 11/08/24 21:20 11/08/24 23:20 Lactic Acid Level 3.9 mmol/L (0.4-2.0) *H 2.4 mmol/L (0.4-2.0) *H White Blood Count 6.7 10^3/uL (4.4-10.8) Medications Medications Dose Ordered Sig/Uyen Route Start Time Stop Time Status Last Admin Dose Admin Ketorolac Tromethamine 30 mg ONCE ONCE IV 11/08/24 21:30 11/08/24 21:31 DC 11/08/24 23:31 Meclizine HCl 25 mg ONCE ONCE PO 11/08/24 21:30 11/08/24 21:31 DC 11/08/24 23:30 Ondansetron HCl 4 mg ONCE ONCE IV 11/08/24 21:30 11/08/24 21:31 DC 11/08/24 23:31 Potassium Bicarbonate 25 meq ONCE ONCE PO 11/08/24 22:30 11/08/24 22:31 DC 11/08/24 23:31 Sodium Chloride 1,000 ml @ 1,000 mls/hr Q1H ONCE IV 11/08/24 22:30 11/08/24 23:29 DC 11/08/24 23:30 Departure 1 Departure Time of Disposition: 00:19 Impression: Primary Impression: Pancreatitis Additional Impressions: Transaminitis Elevated lactic acid level Hyperglycemia due to diabetes mellitus Hypokalemia Bradycardia Disposition: ADMITTED INPATIENT Condition: Fair Discharged With: Self Critical Care Note Critical Care Time?: No Stability Stability form required: No Heart Score Heart Score: Heart Score Response (Comments) Value History Slightly Suspicious 0 EKG Repolarization Disturb 1 Age 45-64 1 Risk Factors >3 or Hx ASHD 2 Troponin Normal limit 0 Total 4 I personally scribed for NI,NATALEE B PAC ([email or web address]) on 11/08/24 at 21:31. Electronically submitted by Adan Arguello ([facility]). NATALEE DAN PAC Nov 08, 2024 21:31
[2024-11-08 21:48] LABS: Eosinophils # (auto) 0.2 10 ^3/uL (0-0.8); Lymphocytes # (auto) 0.8 10 ^3/uL (0.4-5.4); Mean Corpuscular Volume 74.6 fL (80.0-100.0); Monocytes # (auto) 0.4 10 ^3/uL (0-1.3); Nucleated Red Blood Cells % 0.1 %
[2024-11-08 21:51] LABS: Basophils # (auto) 0.1 10 ^3/uL (0-0.2); Basophils % (auto) 1.3 % (0.0-2.0); Eosinophils % (auto) 3.3 % (0.0-7.0); Hematocrit 40.1 % (36.0-46.0); Lymphocytes % (auto) 11.2 % (10.0-50.0); Mean Corpuscular Hemoglobin 24.1 pg (28.0-32.0); Mean Corpuscular Hgb Conc. 32.4 g/dL (32.0-36.0); Monocytes % (auto) 5.9 % (0.0-12.0); Neutrophils # (auto) 5.2 10 ^3/uL (1.6-8.6); Neutrophils % (auto) 78.3 % (37.0-80.0); Platelet Count (auto) 142 10^3/uL (140-450); Red Blood Cells 5.38 10^6/uL (4.0-5.20); White Blood Cell 6.7 10^3/uL (4.4-10.8)
--- NOTE | 2024-11-08 21:59 | DVH ---
CHEST RADIOGRAPH Indication: Chest pain Technique: Single frontal view of the chest was obtained Comparison: XY CHEST XRAY 1 VIEW on DOS: 10/17/24, XY CHEST XRAY 1 VIEW on DOS: 09/23/24, XY CHEST XRAY 1 VIEW on DOS: 08/16/24 FINDINGS: Lines and Tubes: None Lungs: Prominent bronchovascular markings in both bases may represent atelectasis or developing infil trate Pleura: No effusion. No pneumothorax. Cardiomediastinal contours: Unremarkable Bones: No acute osseous abnormality. IMPRESSION: 1. Increased bronchovascular markings in both lung bases may represent atelectasis or developing airs pace disease. HS:Y
[2024-11-08 22:03] LABS: Albumin 4.6 g/dL (3.2-4.8); Alkaline Phosphatase 78 U/L (46-116); Anion Gap 13 (5-15); BUN/Creatinine Ratio 13.2 (10.0-20.0); Blood Urea Nitrogen 20 mg/dL (9-23); Calcium 9.5 mg/dL (8.7-10.4); Carbon Dioxide 22 mmol/L (20-31); Chloride 102 mmol/L (98-107); Sodium 137 mmol/L (136-145); Total Protein 7.5 g/dL (5.7-8.2)
[2024-11-08 22:07] LABS: Red Cell Distribution Width 22.4 % (11.8-14.3)
[2024-11-08 22:10] LABS: Alanine Aminotransferase 44 U/L (7-40); Aspartate Aminotransferase 55 U/L (<34); Bilirubin, Total 0.3 mg/dL (0.2-1.0); Glucose 291 mg/dL (74-106); Lipase 87 U/L (12-53); Potassium 3.2 mmol/L (3.5-5.1)
[2024-11-08 22:15] LABS: Lactic Acid w/Reflex 3.9 mmol/L (0.4-2.0)
[2024-11-08] MEDS: POTASSIUM CHL 20MEQ/100ML 100 ML IV SCH (23:29)
[2024-11-08] MEDS: MECLIZINE HCL 25 MG TAB PO ONE (23:30)
[2024-11-08] MEDS: SODIUM CHLORIDE 0.9% 1,000 ML IV ONE (23:30)
[2024-11-08] MEDS: KETOROLAC TROMETH 30 MG/ML 1ML VIAL IV ONE (23:31)
[2024-11-08] MEDS: POTASSIUM EFFERVESENT TAB 25 MEQ PO ONE (23:31)
[2024-11-08] MEDS: ONDANSETRON HCL 4 MG/2 ML VIAL IV ONE (23:31)
[2024-11-09] MEDS ORDERED: ACETAMINOPHEN 325 MG TAB PO PRN (06:45)
[2024-11-09] MEDS ORDERED: NITROGLYCERIN 0.4 MG SL TAB SL PRN (06:45)
--- NOTE | 2024-11-09 06:57 | DVHHP2 ---
History of Present Illness History of Present Illness 59-year-old female comes to ER by EMS with nausea, shortness of breath and chest pain concerns since yesterday. Patient has multiple comorbidities including a history of HIV on antiretrovirals with undetectable viral load, DM type 2 insulin-dependent, CKD stage 3, hypertension, chronic respiratory failure, GERD, atrial fibrillation on Eliquis, and congestive heart failure. Patient had recent onset nausea and then associated chest pain and shortness of breath. Chest pain localized to substernal retrosternal described as sharp. She has dry heaving but no vomiting. Complaining of dizziness, chest discomfort and shortness a breath for the past hour prior to coming here. Patient is a very poor historian. Vital signs were stable on arrival. Review of Systems Allergies: Coded Allergies: Loperamide (Verified Allergy, Severe, 08/13/23) Nystatin (Verified Allergy, Severe, 08/13/23) Penicillins (Verified Allergy, Severe, 08/13/23) Diphenhydramine (Verified Allergy, Unknown, 09/23/24) Medications Current Medications Medications Dose Ordered Sig/Uyen Route Start Time Stop Time Status Last Admin Dose Admin Acetaminophen/ Hydrocodone Bitart 1 tab Q4HP PRN PO 11/09/24 06:45 UNV Ondansetron HCl 4 mg Q4HP PRN IV 11/09/24 06:45 UNV Enoxaparin Sodium 40 mg DAILY SC 11/09/24 10:00 UNV Acetaminophen 650 mg Q6HP PRN PO 11/09/24 06:45 UNV Morphine Sulfate 2 mg Q4HPRN PRN IV 11/09/24 06:45 UNV Nitroglycerin 0.4 mg Q5MINP PRN SL 11/09/24 06:45 UNV Exam Vital Signs Vital Signs Date Time Temp Pulse Resp B/P (MAP) Pulse Ox O2 Delivery O2 Flow Rate FiO2 11/09/24 00:20 56 18 119/54 (75) 95 11/08/24 23:26 Room Air 11/08/24 23:26 98.0 98.0 Exam GEN: Healthy appearing, well-developed, NAD. HEENT: NC/AT; MMM. CV: RRR, no m/r/g. LUNGS: CTAB, no w/r/c. ABD: Tender epigastrium, no bowel sounds present, EXT: skin Warm, well perfused. no rashes. No clubbing, cyanosis, or edema. NEURO: Ambulating with no limitations. No focal deficits. Labs/Xrays Labs Test 11/09/24 00:15 11/08/24 23:20 11/08/24 21:20 Range/Units Troponin I High Sensitivity 5 </=34 ng/L Lactic Acid Level 2.4 *H 0.4-2.0 mmol/L White Blood Count 6.7 4.4-10.8 10^3/uL Red Blood Count 5.38 H 4.0-5.20 10^6/uL Hemoglobin 13.0 12.2-16.2 g/dL Hematocrit 40.1 36.0-46.0 % Mean Corpuscular Volume 74.6 L 80.0-100.0 fL Mean Corpuscular Hemoglobin 24.1 L 28.0-32.0 pg Mean Corpuscular Hemoglobin Concent 32.4 32.0-36.0 g/dL Red Cell Distribution Width 22.4 H 11.8-14.3 % Platelet Count 142 140-450 10^3/uL Mean Platelet Volume 9.6 6.9-10.8 fL Neutrophils (%) (Auto) 78.3 37.0-80.0 % Lymphocytes (%) (Auto) 11.2 10.0-50.0 % Monocytes (%) (Auto) 5.9 0.0-12.0 % Eosinophils (%) (Auto) 3.3 0.0-7.0 % Basophils (%) (Auto) 1.3 0.0-2.0 % Neutrophils # (Auto) 5.2 1.6-8.6 10 ^3/uL Lymphocytes # (Auto) 0.8 0.4-5.4 10 ^3/uL Monocytes # (Auto) 0.4 0-1.3 10 ^3/uL Eosinophils # (Auto) 0.2 0-0.8 10 ^3/uL Basophils # (Auto) 0.1 0-0.2 10 ^3/uL Nucleated Red Blood Cells 0.1 % Sodium Level 137 136-145 mmol/L Potassium Level 3.2 L 3.5-5.1 mmol/L Chloride Level 102 98-107 mmol/L Carbon Dioxide Level 22 20-31 mmol/L Anion Gap 13 5-15 Blood Urea Nitrogen 20 9-23 mg/dL Creatinine 1.51 H 0.550-1.02 mg/dL Glomerular Filtration Rate Calc 39 >90 mL/min BUN/Creatinine Ratio 13.2 10.0-20.0 Serum Glucose 291 H 74-106 mg/dL Calcium Level 9.5 8.7-10.4 mg/dL Total Bilirubin 0.3 0.2-1.0 mg/dL Aspartate Amino Transferase (AST) 55 H <34 U/L Alanine Aminotransferase (ALT) 44 H 7-40 U/L Alkaline Phosphatase 78 46-116 U/L Total Protein 7.5 5.7-8.2 g/dL Albumin 4.6 3.2-4.8 g/dL Lipase 87 H 12-53 U/L Assessment/Plan Assessment/Plan 59-year-old female comes to ER by EMS with nausea, shortness of breath and chest pain concerns since yesterday. Patient has multiple comorbidities including a history of HIV on antiretrovirals with undetectable viral load, DM type 2 insulin-dependent, CKD stage 3, hypertension, chronic respiratory failure, GERD, atrial fibrillation on Eliquis, and congestive heart failure. Patient had recent onset nausea and then associated chest pain and shortness of breath. Chest pain localized to substernal retrosternal described as sharp. She has dry heaving but no vomiting. Complaining of dizziness, chest discomfort and shortness a breath for the past hour prior to coming here. Patient is a very poor historian. Vital signs were stable on arrival. Under admission labs she has hyperkalemia, lactic acidosis, lipase elevated due to nausea and vomiting, mild transaminitis. This is possible gastroenteritis. She has no abdominal bowel sounds which could be from gastroenteritis but we will we will get CT abdomen to rule out SBO. Diagnosis: Gastroenteritis, infectious etiology likely Pneumonia possible, Gram-negative Gram-positive likely Rule out SBO Lactic acidosis Intractable nausea and vomiting Transaminitis Mild pancreatitis Hypokalemia Chest pain HIV on antiretrovirals with undetectable viral load DM type 2 insulin-dependent CKD stage 3 hypertension chronic respiratory failure GERD atrial fibrillation on Eliquis congestive heart failure Plan: - NPO - iv abx (anasyn, azithro) - p.r.n. antiemetics - Prn analgesia, Tylenol, [place], morphine - CT abdomen - rule out SBO - flu COVID ruled out - we will continue home meds amiodarone, Eliquis, metoprolol - replace HIV Triumeq, continue aspirin Lipitor, - hold lisinopril for patient dehydrated possible low BP, - patient hypokalemic we will continue daily potassium,, continue pregabalin home dose -hold oral diabetic medication and start SSI. NPO GI PPI IV daily DVT-Lovenox Tele Full code Plan discussed with: Patient My Orders Orders - MATILDA VILLA MD Procedure Category Date Status Time Admit ADMIT 11/09/24 Transmitted 06:35 Code Status CODE 11/09/24 Transmitted 06:35 Hydrocodone-Acet PHA 11/09/24 Transmitted 5/325mg Tab ([place] 06:45 Ondansetron Hcl PHA 11/09/24 Transmitted (Zofran) 06:45 Enoxaparin Sodium PHA 11/09/24 Transmitted (Lovenox) 10:00 Complete Blood Count LAB 11/10/24 Verified 04:00 Comprehensive LAB 11/10/24 Verified Metabolic Panel 04:00 Npo (Nothing By DIET 11/09/24 Transmitted Mouth) Diet Breakfast Acetaminophen Tablet PHA 11/09/24 Transmitted (Tylenol Tablet) 06:45 Morphine Sulfate PHA 11/09/24 Transmitted Injection 06:45 Nitroglycerin PHA 11/09/24 Transmitted Sublingual (Ntrostat 06:45 Stat Ekg For Chest SANJU 11/09/24 Transmitted Pain 06:35 Notify Md Of Changes [facility] 11/09/24 Transmitted From Base 06:35 Hotel Services Supervisor For [facility] 11/09/24 Transmitted 24 Hours 06:35 Emergency Dysrhythmia [facility] 11/09/24 Transmitted Protocol 06:35 Rhythm Strips Once SANJU 11/09/24 Transmitted Every Shift 06:35 Oxygen By Nasal RT 11/09/24 Transmitted Cannula 06:35 Date of Service: Nov 09, 2024 Billing Provider: MATILDA VILLA MD Common Visit Codes: [id number] INP/OBS CARE (HIGH) Secondary Visit Codes: [id number] CARE PLAN 30 MINUTES MATILDA VILLA MD Nov 09, 2024 06:57
[2024-11-09] MEDS ORDERED: AMPICILLIN & SULBACTAM SODIUM 3 GM in SODIUM CHL 0.9% 100 ML IV SCH (08:45)
--- NOTE | 2024-11-09 09:15 | DVH ---
Exam: CT CT AB PEL WO CON-NO ORAL OR IV History: intract abd pain. r/o sbo. r/o acute abdomen Comparison Study: CT CT AB PEL WO CON-NO ORAL OR IV on DOS: 06/06/24 Technique: Multidetector spiral CT of the abdomen was performed from lung bases to pubic symphysis. Imaging was performed without IV contrast. Axial, coronal and sagittal multiplanar reformats were ob tained from the axial data set by the technologist. Radiation Dose : 1. Abdomen/Pelvis: CTDIvol 24.63 mGy, DLP 1355.38 mGy*cm. Findings: Evaluation of solid organs is limited due to lack of intravenous contrast use. Lung Bases: No acute or significant lung base finding. Normal heart size. No pleural or pericardial effusion. Liver: The liver is normal in size. No focal lesions. Gallbladder and Biliary Tree: Gallbladder is surgically absent. Spleen: Unremarkable Pancreas: The pancreas is grossly normal in appearance. Adrenal Glands: Unremarkable Kidneys: Stable 3 mm nonobstructing calculi seen in the midpole of the right kidney. No significant h ydronephrosis. Bladder: Grossly unremarkable for degree of distention. Bowel: The stomach is grossly normal in appearance. Small bowel and colon are normal in caliber and d istribution. Normal appendix is visualized in the right lower quadrant without findings of appendici tis. Moderate colonic stool burden. Ascites: Absent Lymphadenopathy: No mesenteric, retroperitoneal or periportal lymphadenopathy. Abdominal Wall and Mesentery: Diastasis recti is seen in the lower abdomen.. Vasculature: The visualized abdominal aorta is normal in size and caliber. Evaluation of abdominal a nd pelvic vessels is limited due to lack of intravenous contrast. Pelvic Organs: Unremarkable Musculoskeletal: No aggressive focal bony lesions, acute fractures or dislocation. Degenerative reeder es are seen throughout the thoracic and lumbar spine. IMPRESSION: 1. No evidence of small-bowel obstruction. 2. Right renal nephrolithiasis without hydronephrosis. 3. Moderate colonic stool burden. Radiation optimization: All CT scans at this facility use at least one of these dose optimization fany hniques: automated exposure control mA and/or kV adjustment per patient size (includes targeted exam s where dose is matched to clinical indication) or iterative reconstruction.
[2024-11-09] MEDS ORDERED: AZITHROMYCIN 500MG/ 250ML 250 ML IV SCH (10:00)
[2024-11-09] MEDS: ASPirin 81 mg TAB PO SCH (10:00)
[2024-11-09] MEDS: AMIODARONE HCL 200 MG TAB PO SCH (10:00)
[2024-11-09] MEDS: APIXABAN 5 MG TAB PO SCH (10:00)
[2024-11-09] MEDS: ENOXAPARIN SOD 40 MG/0.4 ML SYRINGE SC SCH (10:00)
[2024-11-09] MEDS: METOPROLOL TARTRATE 25 MG TAB PO SCH (10:00)
[2024-11-09] MEDS: ABACAVIR DOLUTEGRAVIR LAMIVUDI PO SCH (10:00)
[2024-11-09] MEDS: POTASSIUM CHL 10 Meq TABLET PO SCH (10:00)
[2024-11-09 10:43] LABS: COVID19 ANTIGEN SOFIA FIA NEGATIVE (NEGATIVE)
[2024-11-09 10:44] LABS: Rapid Influenza A Negative (Negative); Rapid Influenza B Negative (Negative)
[2024-11-09 10:53] LABS: Urine Bacteria FEW /hpf (None Seen); Urine Blood Negative /uL (Negative); Urine Clarity Clear (Clear); Urine Color Light-Yellow (Yellow); Urine Protein, UAD Negative (Negative); Urine Squamous Epithelial Cell FEW /hpf (<5); Urine Urobilinogen Normal (Negative); Urine WBC 1 /HPF (0-5)
[2024-11-09] MEDS ORDERED: DEXTROSE (50%) 50ML SYRG IV PRN (12:00)
[2024-11-09 12:15] VITALS: BP 117/56; PULSE 53; RESP 18; TEMP 98.1; O2SAT 98
[2024-11-09 12:23] VITALS: BP 117/56; PULSE 53; RESP 18; TEMP 98.1; O2SAT 98
[2024-11-09] MEDS: MORPHINE SULFATE INJ 2 MG/ml SYRG IV PRN (13:18)
[2024-11-09] MEDS: PREGABALIN 25 MG CAP PO SCH (14:41)
[2024-11-09] MEDS: ACCU-CHEK COMFORT CURVE STRIP VI SCH (17:14)
[2024-11-09] MEDS: InsuLIN REG 1unit/0.01ml Soln (100units/ml) SC SCH (17:16)
[2024-11-09] MEDS ORDERED: levoFLOXacin 500MG 100 ML IV ONE (18:14)
[2024-11-09] MEDS ORDERED: metroNIDAZOLE 500MG/100ML 100 ML IV ONE (18:15)
[2024-11-09 20:00] VITALS: BP 119/75; PULSE 55; PULSE 56; RESP 17; RESP 18; TEMP 97.8; O2SAT 97
[2024-11-09] MEDS: levoFLOXacin 500MG 100 ML IV ONE (20:12)
[2024-11-09 21:00] VITALS: BP 119/75; PULSE 56; RESP 18; TEMP 97.8; O2SAT 97
[2024-11-09] MEDS: ATORVASTATIN 20 MG TAB PO SCH (22:00)
[2024-11-09] MEDS: metroNIDAZOLE 500MG/100ML 100 ML IV ONE (22:15)
[2024-11-10] VITALS (7 sets, daily range): BP systolic 131–142; BP diastolic 42–80; PULSE 50–65; RESP 16–19; TEMP 98.1–98.8; O2SAT 96–100
[2024-11-10] MEDS: metroNIDAZOLE 500MG/100ML 100 ML IV SCH (05:01)
[2024-11-10 06:49] LABS: Basophils # (auto) 0 10 ^3/uL (0-0.2); Basophils % (auto) 0.2 % (0.0-2.0); Eosinophils # (auto) 0.3 10 ^3/uL (0-0.8); Eosinophils % (auto) 6.1 % (0.0-7.0); Hemoglobin 11.9 g/dL (12.2-16.2); Lymphocytes # (auto) 0.7 10 ^3/uL (0.4-5.4); Mean Corpuscular Hemoglobin 24.2 pg (28.0-32.0); Mean Corpuscular Hgb Conc. 32.1 g/dL (32.0-36.0); Mean Corpuscular Volume 75.2 fL (80.0-100.0); Monocytes # (auto) 0.4 10 ^3/uL (0-1.3); Monocytes % (auto) 8.7 % (0.0-12.0); Neutrophils # (auto) 2.9 10 ^3/uL (1.6-8.6); Nucleated Red Blood Cells % 0.3 %; Platelet Count (auto) 112 10^3/uL (140-450); Red Blood Cells 4.92 10^6/uL (4.0-5.20); Red Cell Distribution Width 23.1 % (11.8-14.3); White Blood Cell 4.2 10^3/uL (4.4-10.8)
[2024-11-10 07:09] LABS: Alanine Aminotransferase 28 U/L (7-40); Alkaline Phosphatase 65 U/L (46-116); Anion Gap 9 (5-15); BUN/Creatinine Ratio 14.9 (10.0-20.0); Blood Urea Nitrogen 20 mg/dL (9-23); Calcium 9.8 mg/dL (8.7-10.4); Carbon Dioxide 27 mmol/L (20-31); Chloride 106 mmol/L (98-107); Potassium 4.6 mmol/L (3.5-5.1); Sodium 142 mmol/L (136-145); Total Protein 6.3 g/dL (5.7-8.2)
[2024-11-10 07:12] LABS: Aspartate Aminotransferase 42 U/L (<34); Bilirubin, Total 0.2 mg/dL (0.2-1.0); Glucose 260 mg/dL (74-106)
--- NOTE | 2024-11-10 13:36 | DVHPN2 ---
Reviewed: Care Plan, H&P, Labs, Medications, Previous Orders Changes from previous H/P or p: No Changes General: Per HPI Objective Vitals Vital Signs Date Time Temp Pulse Resp B/P (MAP) Pulse Ox O2 Delivery O2 Flow Rate FiO2 11/10/24 10:00 56 142/72 11/10/24 09:00 98.1 18 100 98.1 11/10/24 08:10 Room Air* 0 21 Intake/Output Intake and Output 11/10/24 07:00 Intake Total 580 ml Balance 580 ml Intake Oral 480 ml IV Total 100 ml # Voids 6 General Appearance: Alert, Oriented X3, Cooperative Cardiovascular: Regular rate, Normal S1, Normal S2 Neuro: Normal gait, Normal speech Medications Current Medications Medications Dose Ordered Sig/Uyen Route Start Time Stop Time Status Last Admin Dose Admin Acetaminophen/ Hydrocodone Bitart 1 tab Q4HP PRN PO 11/09/24 06:45 Ondansetron HCl 4 mg Q4HP PRN IV 11/09/24 06:45 Enoxaparin Sodium 40 mg DAILY SC 11/09/24 10:00 Hold Acetaminophen 650 mg Q6HP PRN PO 11/09/24 06:45 Morphine Sulfate 2 mg Q4HPRN PRN IV 11/09/24 06:45 11/09/24 17:01 2 MG Nitroglycerin 0.4 mg Q5MINP PRN SL 11/09/24 06:45 Amiodarone HCl 200 mg BID PO 11/09/24 10:00 Apixaban 5 mg BID PO 11/09/24 10:00 11/10/24 10:29 5 MG Metoprolol Tartrate 25 mg DAILY PO 11/09/24 10:00 Patient Own Medication 1 tab DAILY PO 11/09/24 10:00 11/10/24 10:00 1 TAB Aspirin 81 mg DAILY PO 11/09/24 10:00 11/10/24 10:29 81 MG Atorvastatin Calcium 40 mg HS PO 11/09/24 22:00 Potassium Chloride 10 meq DAILY PO 11/09/24 10:00 Pregabalin 200 mg TID PO 11/09/24 14:00 11/09/24 14:41 200 MG Ampicillin Sodium/ Sulbactam Sodium 3 gm/Sodium Chloride 100 ml @ 100 mls/hr Q6H IV 11/09/24 08:45 UNV Azithromycin 250 ml @ 125 mls/hr DAILY IV 11/09/24 10:00 UNV Diagnostic Test (Pha) 1 strip ACHS 11/09/24 17:00 11/10/24 12:07 1 STRIP Insulin Human Regular ACHS SC 11/09/24 17:00 11/10/24 12:07 4 UNITS Dextrose 50 ml UD PRN IV 11/09/24 12:00 Metronidazole 100 ml @ 100 mls/hr Q8HR IV 11/10/24 06:00 11/10/24 05:01 100 MLS/HR Levofloxacin/ Dextrose 100 ml @ 100 mls/hr Q48H IV 11/10/24 18:00 Laboratory Results Laboratory Tests 11/10/24 06:28 Chemistry Test 11/10/24 06:28 Albumin 4.0 g/dL (3.2-4.8) Calcium Level 9.8 mg/dL (8.7-10.4) Total Protein 6.3 g/dL (5.7-8.2) LFT Test 11/10/24 06:28 Alanine Aminotransferase (ALT) 28 U/L (7-40) Alkaline Phosphatase 65 U/L (46-116) Aspartate Amino Transferase (AST) 42 U/L (<34) H Total Bilirubin 0.2 mg/dL (0.2-1.0) Urinalysis Test 11/09/24 10:12 Urine Color Light-yellow (Yellow) Urine Clarity Clear (Clear) Urine pH 5.0 (5.0-9.0) Urine Specific [place] 1.030 (1.001-1.035) Urine Protein Negative (Negative) Urine Ketones Negative (Negative) Urine Blood Negative /uL (Negative) Urine Nitrite Negative (Negative) Urine Bilirubin Negative (Negative) Urine Urobilinogen Normal mg/dL (Negative) Urine Leukocyte Esterase Negative /uL (Negative) Urine RBC <1 /hpf (0 - 4) Urine Microscopic WBC 1 /HPF (0-5) Urine Squamous Epithelial Cells Few /hpf (<5) Urine Bacteria Few /hpf (None Seen) H Urine Glucose 4+ mg/dL (Normal) H Microbiology Microbiology Date/Time Source Procedure Growth Status 11/08/24 21:25 Blood Blood Culture - Preliminary NO GROWTH AFTER 24 HOURS OF INCUBATION. Resulted Assessment/Plan Assessment/Plan 59-year-old female comes to ER by EMS with nausea, shortness of breath and chest pain concerns since yesterday. Patient has multiple comorbidities including a history of HIV on antiretrovirals with undetectable viral load, DM type 2 insulin-dependent, CKD stage 3, hypertension, chronic respiratory failure, GERD, atrial fibrillation on Eliquis, and congestive heart failure. Patient had recent onset nausea and then associated chest pain and shortness of breath. Chest pain localized to substernal retrosternal described as sharp. She has dry heaving but no vomiting. Complaining of dizziness, chest discomfort and shortness a breath for the past hour prior to coming here. Patient is a very poor historian. Vital signs were stable on arrival. Gastroenteritis, infectious etiology likely Pneumonia possible, Gram-negative Gram-positive likely Rule out SBO Lactic acidosis Intractable nausea and vomiting Transaminitis Mild pancreatitis, ruled in Hypokalemia Chest pain HIV on antiretrovirals with undetectable viral load DM type 2 insulin-dependent TOÑA/CKD stage 3 (vasomotor neprhopathy) hypertension chronic respiratory failure GERD atrial fibrillation on Eliquis congestive heart failure DM type II with hyperglycemia Plan discussed with: Patient Date of Service: Nov 10, 2024 Billing Provider: BETHANY JEFF DO Common Visit Codes: [id number] INP/OBS CARE(HIGH) BETHANY JEFF DO Nov 10, 2024 13:36
[2024-11-10] MEDS: levoFLOXacin 500MG 100 ML IV SCH (17:53)
[2024-11-11] VITALS (7 sets, daily range): BP systolic 119–158; BP diastolic 55–85; PULSE 51–64; RESP 16–20; TEMP 97.7–98.4; O2SAT 95–100
[2024-11-11] MEDS: HYDROcodone-ACET 5/325MG TAB PO PRN (03:02)
[2024-11-11] MEDS: MORPHINE SULFATE 4 MG/ML SYR/VIAL IV PRN (08:26)
--- NOTE | 2024-11-11 11:57 | ECG ---
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
--- NOTE | 2024-11-11 13:56 | ECG ---
[facility] Test Date: 2024-11-08 Test Time: 21:13:17 Pat Name: FELICE COLE [facility] F Oil Tester: MAGALI : 1965 Requested By: NATALEE DAN Order Number: [id number] Reading MD: Stephen Gomez Measurements Intervals [place] Rate: 62 P: 67 ID: [id number] QRS: 132 QRSD: 104 T: 43 QT: 452 QTc: 459 Interpretive Statements Sinus rhythm Left posterior fascicular block Abnormal R-wave progression, late transition Minimal ST elevation, anterior leads Electronically Signed On 11-11-2024 22:44:36 PDT by Stephen Gomez Please click the below link to view image of tracing.
[2024-11-11] MEDS ORDERED: DEXTROSE (50%) 50ML SYRG IV PRN (14:30)
[2024-11-11] MEDS ORDERED: MORPHINE SULFATE INJ 2 MG/ml SYRG IV PRN (14:30)
--- NOTE | 2024-11-11 14:31 | DVHPN2 ---
Reviewed: Care Plan, H&P, Labs, Medications, Previous Orders Changes from previous H/P or p: No Changes General: Per HPI Objective Vitals Vital Signs Date Time Temp Pulse Resp B/P (MAP) Pulse Ox O2 Delivery O2 Flow Rate FiO2 11/11/24 11:21 66 146/82 11/11/24 08:56 18 11/11/24 08:30 97.7 99 97.7 11/11/24 08:10 Room Air* 0 21 Intake/Output Intake and Output 11/11/24 06:59 Intake Total 2380 ml Balance 2380 ml Intake Oral 2180 ml IV Total 200 ml # Voids 3 General Appearance: Alert, Cooperative HEENT: Atraumatic Cardiovascular: Regular rate, Normal S1, Normal S2 Abdomen: Normal bowel sounds, Soft Extremities: No clubbing, No cyanosis Medications Current Medications Medications Dose Ordered Sig/Uyen Route Start Time Stop Time Status Last Admin Dose Admin Acetaminophen/ Hydrocodone Bitart 1 tab Q4HP PRN PO 11/09/24 06:45 11/11/24 03:02 1 TAB Ondansetron HCl 4 mg Q4HP PRN IV 11/09/24 06:45 Enoxaparin Sodium 40 mg DAILY SC 11/09/24 10:00 Hold Acetaminophen 650 mg Q6HP PRN PO 11/09/24 06:45 Nitroglycerin 0.4 mg Q5MINP PRN SL 11/09/24 06:45 Amiodarone HCl 200 mg BID PO 11/09/24 10:00 11/11/24 10:22 200 MG Apixaban 5 mg BID PO 11/09/24 10:00 11/11/24 10:21 5 MG Metoprolol Tartrate 25 mg DAILY PO 11/09/24 10:00 11/11/24 10:21 25 MG Patient Own Medication 1 tab DAILY PO 11/09/24 10:00 11/11/24 10:22 1 TAB Aspirin 81 mg DAILY PO 11/09/24 10:00 11/11/24 10:22 81 MG Atorvastatin Calcium 40 mg HS PO 11/09/24 22:00 11/10/24 22:05 40 MG Potassium Chloride 10 meq DAILY PO 11/09/24 10:00 Pregabalin 200 mg TID PO 11/09/24 14:00 11/11/24 13:56 200 MG Ampicillin Sodium/ Sulbactam Sodium 3 gm/Sodium Chloride 100 ml @ 100 mls/hr Q6H IV 11/09/24 08:45 UNV Azithromycin 250 ml @ 125 mls/hr DAILY IV 11/09/24 10:00 UNV Diagnostic Test (Pha) 1 strip ACHS 11/09/24 17:00 11/11/24 11:30 1 STRIP Insulin Human Regular ACHS SC 11/09/24 17:00 11/11/24 11:36 10 UNITS Dextrose 50 ml UD PRN IV 11/09/24 12:00 Metronidazole 100 ml @ 100 mls/hr Q8HR IV 11/10/24 06:00 11/11/24 13:56 100 MLS/HR Levofloxacin/ Dextrose 100 ml @ 100 mls/hr DAILY@1800 IV 11/10/24 18:00 11/10/24 17:53 100 MLS/HR Morphine Sulfate 2 mg Q4HPRN PRN IV 11/11/24 08:15 11/11/24 08:26 2 MG Laboratory Results Laboratory Tests 11/10/24 06:28 Urinalysis Test 11/09/24 10:12 Urine Color Light-yellow (Yellow) Urine Clarity Clear (Clear) Urine pH 5.0 (5.0-9.0) Urine Specific [place] 1.030 (1.001-1.035) Urine Protein Negative (Negative) Urine Ketones Negative (Negative) Urine Blood Negative /uL (Negative) Urine Nitrite Negative (Negative) Urine Bilirubin Negative (Negative) Urine Urobilinogen Normal mg/dL (Negative) Urine Leukocyte Esterase Negative /uL (Negative) Urine RBC <1 /hpf (0 - 4) Urine Microscopic WBC 1 /HPF (0-5) Urine Squamous Epithelial Cells Few /hpf (<5) Urine Bacteria Few /hpf (None Seen) H Urine Glucose 4+ mg/dL (Normal) H Microbiology Microbiology Date/Time Source Procedure Growth Status 11/08/24 21:25 Blood Blood Culture - Preliminary NO GROWTH AFTER 48 HOURS OF INCUBATION. Resulted Labs and/or images reviewed: Labs reviewed by me, Image(s) reviewed by me Assessment/Plan Assessment/Plan 59-year-old female comes to ER by EMS with nausea, shortness of breath and chest pain concerns since yesterday. Patient has multiple comorbidities including a history of HIV on antiretrovirals with undetectable viral load, DM type 2 insulin-dependent, CKD stage 3, hypertension, chronic respiratory failure, GERD, atrial fibrillation on Eliquis, and congestive heart failure. Patient had recent onset nausea and then associated chest pain and shortness of breath. Chest pain localized to substernal retrosternal described as sharp. She has dry heaving but no vomiting. Complaining of dizziness, chest discomfort and shortness a breath for the past hour prior to coming here. Patient is a very poor historian. Vital signs were stable on arrival. Gastroenteritis, infectious etiology likely Pneumonia possible, Gram-negative Gram-positive likely Rule out SBO Lactic acidosis Intractable nausea and vomiting Transaminitis Mild pancreatitis, ruled in Hypokalemia Chest pain HIV on antiretrovirals with undetectable viral load DM type 2 insulin-dependent TOÑA/CKD stage 3 (vasomotor neprhopathy) hypertension chronic respiratory failure GERD atrial fibrillation on Eliquis congestive heart failure DM type II with hyperglycemia -- pt is homeless -- requested case management to assist with finding placement Plan discussed with: Patient My Orders Orders - BETHANY JEFF DO Procedure Category Date Status Time Morphine Sulfate PHA 11/11/24 Verified Injection 14:30 Lactulose Oral PHA 11/11/24 Verified 14:30 Glucose Blood PHA 11/11/24 Verified (Accu-Chek Comfort 18:00 Moderate Insulin Ss PHA 11/11/24 Verified 18:00 Dextrose 50% Syringe PHA 11/11/24 Verified 14:30 Date of Service: Nov 11, 2024 Billing Provider: BETHANY JEFF DO Common Visit Codes: [id number] INP/OBS CARE(HIGH) BETHANY JEFF DO Nov 11, 2024 14:31
[2024-11-11] MEDS: InsuLIN REG 1unit/0.01ml Soln (100units/ml) SC SCH (17:55)
[2024-11-11] MEDS: ACCU-CHEK COMFORT CURVE STRIP VI SCH (17:56)
[2024-11-11] MEDS: LACTULOSE 20Gm/30ML SOLN PO PRN (18:45)
[2024-11-12] VITALS (8 sets, daily range): BP systolic 118–151; BP diastolic 48–79; PULSE 49–65; RESP 18–20; TEMP 97.7–98.4; O2SAT 93–100
[2024-11-13] VITALS (8 sets, daily range): BP systolic 103–144; BP diastolic 44–84; PULSE 48–60; RESP 17–20; TEMP 97.8–98.8; O2SAT 95–100
[2024-11-13] MEDS ORDERED: DEXTROSE (50%) 50ML SYRG IV PRN
[2024-11-13] MEDS: InsuLIN REG 1unit/0.01ml Soln (100units/ml) SC SCH
[2024-11-13] MEDS: ACCU-CHEK COMFORT CURVE STRIP VI SCH (00:42)
[2024-11-13] MEDS: PREGABALIN 25 MG CAP PO SCH (08:35)
[2024-11-13] MEDS: INSULIN LANTUS (GLARGINE) 1 /0.01ml (100units/ml) SC SCH (21:27)
[2024-11-14] VITALS (9 sets, daily range): BP systolic 105–147; BP diastolic 50–79; PULSE 48–60; RESP 16–19; TEMP 97.6–99.2; O2SAT 96–100
--- NOTE | 2024-11-14 11:45 | DVHPN2 ---
Reviewed: Care Plan, H&P, Labs, Medications, Previous Orders Changes from previous H/P or p: No Changes General: Per HPI Objective Vitals Vital Signs Date Time Temp Pulse Resp B/P (MAP) Pulse Ox O2 Delivery O2 Flow Rate FiO2 11/14/24 09:10 60 147/69 11/14/24 09:00 99.2 18 98 99.2 11/14/24 07:50 Room Air* 0 21 Intake/Output Intake and Output 11/14/24 07:00 Intake Total 2140 ml Balance 2140 ml Intake Oral 1940 ml IV Total 200 ml # Voids 4 # Bowel Movements 2 General Appearance: Alert, Oriented X3, Cooperative HEENT: Atraumatic Lungs: Clear to auscultation Cardiovascular: Regular rate, Normal S1, Normal S2 Neuro: Normal gait, Normal speech Medications Current Medications Medications Dose Ordered Sig/Uyen Route Start Time Stop Time Status Last Admin Dose Admin Acetaminophen/ Hydrocodone Bitart 1 tab Q4HP PRN PO 11/09/24 06:45 11/13/24 20:01 1 TAB Ondansetron HCl 4 mg Q4HP PRN IV 11/09/24 06:45 Enoxaparin Sodium 40 mg DAILY SC 11/09/24 10:00 Hold Acetaminophen 650 mg Q6HP PRN PO 11/09/24 06:45 Nitroglycerin 0.4 mg Q5MINP PRN SL 11/09/24 06:45 Amiodarone HCl 200 mg BID PO 11/09/24 10:00 11/14/24 09:04 200 MG Apixaban 5 mg BID PO 11/09/24 10:00 11/14/24 09:04 5 MG Metoprolol Tartrate 25 mg DAILY PO 11/09/24 10:00 11/14/24 09:10 25 MG Patient Own Medication 1 tab DAILY PO 11/09/24 10:00 11/14/24 09:11 1 TAB Aspirin 81 mg DAILY PO 11/09/24 10:00 11/14/24 09:04 81 MG Atorvastatin Calcium 40 mg HS PO 11/09/24 22:00 11/13/24 21:21 40 MG Potassium Chloride 10 meq DAILY PO 11/09/24 10:00 Ampicillin Sodium/ Sulbactam Sodium 3 gm/Sodium Chloride 100 ml @ 100 mls/hr Q6H IV 11/09/24 08:45 UNV Azithromycin 250 ml @ 125 mls/hr DAILY IV 11/09/24 10:00 UNV Metronidazole 100 ml @ 100 mls/hr Q8HR IV 11/10/24 06:00 11/14/24 05:29 100 MLS/HR Levofloxacin/ Dextrose 100 ml @ 100 mls/hr DAILY@1800 IV 11/10/24 18:00 11/13/24 16:57 100 MLS/HR Morphine Sulfate 2 mg Q4HPRN PRN IV 11/11/24 08:15 11/13/24 01:04 2 MG Morphine Sulfate 1 mg Q4HP PRN IV 11/11/24 14:30 Lactulose 30 ml Q6HPRN PRN PO 11/11/24 14:30 11/11/24 18:45 30 ML Diagnostic Test (Pha) 1 strip IQ4HR 11/13/24 00:00 11/14/24 09:05 1 STRIP Insulin Human Regular IQ4HR SC 11/13/24 00:00 11/14/24 09:17 6 UNITS Dextrose 50 ml UD PRN IV 11/13/24 00:00 Pregabalin 200 mg TID PO 11/13/24 08:00 11/14/24 05:37 200 MG Insulin Glargine 10 units BID@0700,2200 SC 11/13/24 22:00 11/14/24 05:37 10 UNITS Laboratory Results Laboratory Tests 11/10/24 06:28 Urinalysis Test 11/09/24 10:12 Urine Color Light-yellow (Yellow) Urine Clarity Clear (Clear) Urine pH 5.0 (5.0-9.0) Urine Specific [place] 1.030 (1.001-1.035) Urine Protein Negative (Negative) Urine Ketones Negative (Negative) Urine Blood Negative /uL (Negative) Urine Nitrite Negative (Negative) Urine Bilirubin Negative (Negative) Urine Urobilinogen Normal mg/dL (Negative) Urine Leukocyte Esterase Negative /uL (Negative) Urine RBC <1 /hpf (0 - 4) Urine Microscopic WBC 1 /HPF (0-5) Urine Squamous Epithelial Cells Few /hpf (<5) Urine Bacteria Few /hpf (None Seen) H Urine Glucose 4+ mg/dL (Normal) H Microbiology Microbiology Date/Time Source Procedure Growth Status 11/08/24 21:25 Blood Blood Culture - Final NO GROWTH AFTER 5 DAYS OF INCUBATION. Complete Labs and/or images reviewed: Labs reviewed by me, Image(s) reviewed by me Assessment/Plan Assessment/Plan 59-year-old female comes to ER by EMS with nausea, shortness of breath and chest pain concerns since yesterday. Patient has multiple comorbidities including a history of HIV on antiretrovirals with undetectable viral load, DM type 2 insulin-dependent, CKD stage 3, hypertension, chronic respiratory failure, GERD, atrial fibrillation on Eliquis, and congestive heart failure. Patient had recent onset nausea and then associated chest pain and shortness of breath. Chest pain localized to substernal retrosternal described as sharp. She has dry heaving but no vomiting. Complaining of dizziness, chest discomfort and shortness a breath for the past hour prior to coming here. Patient is a very poor historian. Vital signs were stable on arrival. Gastroenteritis, infectious etiology likely Pneumonia possible, Gram-negative Gram-positive likely Rule out SBO Lactic acidosis Intractable nausea and vomiting Transaminitis Mild pancreatitis, ruled in Hypokalemia Chest pain HIV on antiretrovirals with undetectable viral load DM type 2 insulin-dependent TOÑA/CKD stage 3 (vasomotor neprhopathy) hypertension chronic respiratory failure GERD atrial fibrillation on Eliquis congestive heart failure DM type II with hyperglycemia -- pt is homeless -- requested case management to assist with finding placement Plan discussed with: Patient My Orders Orders - BETHANY JEFF DO Procedure Category Date Status Time Insulin Lantus PHA 11/13/24 In Process (Glargine) (Lantus) 22:00 Pt Request For Service PT 11/13/24 Logged 23:40 Podiatry Consult CONS 11/14/24 Verified 11:44 Date of Service: Nov 12, 2024 Billing Provider: BETHANY JEFF DO Common Visit Codes: [id number] INP/OBS CARE(HIGH) BETHANY JEFF DO Nov 14, 2024 11:45
--- NOTE | 2024-11-14 11:46 | DVHPN2 ---
Reviewed: Care Plan, H&P, Labs, Medications, Previous Orders General: Per HPI Objective Vitals Vital Signs Date Time Temp Pulse Resp B/P (MAP) Pulse Ox O2 Delivery O2 Flow Rate FiO2 11/14/24 09:10 60 147/69 11/14/24 09:00 99.2 18 98 99.2 11/14/24 07:50 Room Air* 0 21 Intake/Output Intake and Output 11/14/24 07:00 Intake Total 2140 ml Balance 2140 ml Intake Oral 1940 ml IV Total 200 ml # Voids 4 # Bowel Movements 2 Medications Current Medications Medications Dose Ordered Sig/Uyen Route Start Time Stop Time Status Last Admin Dose Admin Acetaminophen/ Hydrocodone Bitart 1 tab Q4HP PRN PO 11/09/24 06:45 11/13/24 20:01 1 TAB Ondansetron HCl 4 mg Q4HP PRN IV 11/09/24 06:45 Enoxaparin Sodium 40 mg DAILY SC 11/09/24 10:00 Hold Acetaminophen 650 mg Q6HP PRN PO 11/09/24 06:45 Nitroglycerin 0.4 mg Q5MINP PRN SL 11/09/24 06:45 Amiodarone HCl 200 mg BID PO 11/09/24 10:00 11/14/24 09:04 200 MG Apixaban 5 mg BID PO 11/09/24 10:00 11/14/24 09:04 5 MG Metoprolol Tartrate 25 mg DAILY PO 11/09/24 10:00 11/14/24 09:10 25 MG Patient Own Medication 1 tab DAILY PO 11/09/24 10:00 11/14/24 09:11 1 TAB Aspirin 81 mg DAILY PO 11/09/24 10:00 11/14/24 09:04 81 MG Atorvastatin Calcium 40 mg HS PO 11/09/24 22:00 11/13/24 21:21 40 MG Potassium Chloride 10 meq DAILY PO 11/09/24 10:00 Ampicillin Sodium/ Sulbactam Sodium 3 gm/Sodium Chloride 100 ml @ 100 mls/hr Q6H IV 11/09/24 08:45 UNV Azithromycin 250 ml @ 125 mls/hr DAILY IV 11/09/24 10:00 UNV Metronidazole 100 ml @ 100 mls/hr Q8HR IV 11/10/24 06:00 11/14/24 05:29 100 MLS/HR Levofloxacin/ Dextrose 100 ml @ 100 mls/hr DAILY@1800 IV 11/10/24 18:00 11/13/24 16:57 100 MLS/HR Morphine Sulfate 2 mg Q4HPRN PRN IV 11/11/24 08:15 11/13/24 01:04 2 MG Morphine Sulfate 1 mg Q4HP PRN IV 11/11/24 14:30 Lactulose 30 ml Q6HPRN PRN PO 11/11/24 14:30 11/11/24 18:45 30 ML Diagnostic Test (Pha) 1 strip IQ4HR 11/13/24 00:00 11/14/24 09:05 1 STRIP Insulin Human Regular IQ4HR SC 11/13/24 00:00 11/14/24 09:17 6 UNITS Dextrose 50 ml UD PRN IV 11/13/24 00:00 Pregabalin 200 mg TID PO 11/13/24 08:00 11/14/24 05:37 200 MG Insulin Glargine 10 units BID@0700,2200 SC 11/13/24 22:00 11/14/24 05:37 10 UNITS Laboratory Results Laboratory Tests 11/10/24 06:28 Urinalysis Test 11/09/24 10:12 Urine Color Light-yellow (Yellow) Urine Clarity Clear (Clear) Urine pH 5.0 (5.0-9.0) Urine Specific [place] 1.030 (1.001-1.035) Urine Protein Negative (Negative) Urine Ketones Negative (Negative) Urine Blood Negative /uL (Negative) Urine Nitrite Negative (Negative) Urine Bilirubin Negative (Negative) Urine Urobilinogen Normal mg/dL (Negative) Urine Leukocyte Esterase Negative /uL (Negative) Urine RBC <1 /hpf (0 - 4) Urine Microscopic WBC 1 /HPF (0-5) Urine Squamous Epithelial Cells Few /hpf (<5) Urine Bacteria Few /hpf (None Seen) H Urine Glucose 4+ mg/dL (Normal) H Microbiology Microbiology Date/Time Source Procedure Growth Status 11/08/24 21:25 Blood Blood Culture - Final NO GROWTH AFTER 5 DAYS OF INCUBATION. Complete Assessment/Plan Assessment/Plan 59-year-old female comes to ER by EMS with nausea, shortness of breath and chest pain concerns since yesterday. Patient has multiple comorbidities including a history of HIV on antiretrovirals with undetectable viral load, DM type 2 insulin-dependent, CKD stage 3, hypertension, chronic respiratory failure, GERD, atrial fibrillation on Eliquis, and congestive heart failure. Patient had recent onset nausea and then associated chest pain and shortness of breath. Chest pain localized to substernal retrosternal described as sharp. She has dry heaving but no vomiting. Complaining of dizziness, chest discomfort and shortness a breath for the past hour prior to coming here. Patient is a very poor historian. Vital signs were stable on arrival. My Orders Orders - BETHANY JEFF DO Procedure Category Date Status Time Insulin Lantus PHA 11/13/24 In Process (Glargine) (Lantus) 22:00 Pt Request For Service PT 11/13/24 Logged 23:40 Podiatry Consult CONS 11/14/24 Verified 11:44 Date of Service: Nov 14, 2024 Billing Provider: BETHANY JEFF DO Common Visit Codes: [id number] INP/OBS CARE(HIGH) BETHANY JEFF DO Nov 14, 2024 11:46
--- NOTE | 2024-11-14 12:23 | DVHINCON2 ---
Date Seen: Nov 14, 2024 Reason for Consultation It 2nd toe wound History of Present Illness 59-year-old female comes to ER by EMS with nausea, shortness of breath and chest pain concerns since yesterday. Patient has multiple comorbidities including a history of HIV on antiretrovirals with undetectable viral load, DM type 2 insulin-dependent, CKD stage 3, hypertension, chronic respiratory failure, GERD, atrial fibrillation on Eliquis, and congestive heart failure. Patient had recent onset nausea and then associated chest pain and shortness of breath. Chest pain localized to substernal retrosternal described as sharp. She has dry heaving but no vomiting. Complaining of dizziness, chest discomfort and shortness a breath for the past hour prior to coming here. Patient is a very poor historian. Vital signs were stable on arrival. Past Medical History See H&P Past Surgical History See H&P Family History: Cardiovascular disease G8 FATHER Diabetes mellitus G8 SISTER Suicide G8 BROTHER Allergies: Coded Allergies: Loperamide (Verified Allergy, Severe, 08/13/23) Nystatin (Verified Allergy, Severe, 08/13/23) Penicillins (Verified Allergy, Severe, 08/13/23) Diphenhydramine (Verified Allergy, Unknown, 09/23/24) Home Meds Reported Medications Amiodarone HCl (Amiodarone HCl) 200 Mg Tab, 1 TAB PO BID for 90 Days, #180 08/18/24 Insulin Glargine (Basaglar Kwikpen) 100 Unit/Ml Inj, 100 UNITS SC BID for 30 Days, #60 08/18/24 Insulin Lispro (Insulin Lispro Kwikpen) 100 Unit/Ml Inj, 10 UNITS SC DAILY for 100 Days, #15 08/18/24 Cetirizine HCl (Cetirizine Hydrochloride) 10 Mg Tab, 1 TAB PO DAILY for 90 Days, #90 08/18/24 Dapagliflozin Propanediol (Dapagliflozin Propanediol) 5 Mg Tab, 1 TAB PO DAILY for 100 Days, #100 08/18/24 Ferrous Sulfate (Ferosul) 325 Mg Tab, 1 TAB PO DAILY for anemia 06/08/24 Nvrzbbjv-Hwtxvmnvgjfy-Ibwrlwkj (Triumeq 600-50-300 mg) 1 Tab Tab, 1 TAB PO DAILY for 30 Days, #30 06/08/24 Sitagliptin Phosphate (Januvia) 100 Mg Tab, 1 DAILY for 90 Days, #90 06/08/24 Metoprolol Tartrate (Metoprolol Tartrate) 25 Mg Tab, 25 MG PO DAILY for 90 Days, #90 06/06/24 Fenofibrate (FENOFIBRATE) 145 Mg Tab, 1 TAB PO DAILY for 90 Days, #90 06/06/24 Potassium Chloride (POTASSIUM CHLORIDE CR) 10 Meq Tb, 1 TAB PO DAILY for 30 Days, #30 06/06/24 Cyclobenzaprine HCl (Cyclobenzaprine Hydrochlo) 10 Mg Tab, 1 TAB PO BID PRN for PAIN FOR MUSCLE SPASMS for 30 Days, #15 08/13/23 Famotidine (Famotidine) 20 Mg Tab, 1 TAB PO BID PRN for ACID REFLUX AND ABDOMINAL PAIN for 90 Days, #180 08/13/23 Furosemide (Furosemide) 40 Mg Tab, 1 TAB PO DAILY for 90 Days, #90 08/13/23 Hydrocodone-Acetaminophen (Hydrocodone/Acetaminophen 5-325 mg) 1 Tab Tab, 2 TAB PO BID 08/13/23 Pregabalin (Pregabalin) 200 Mg Cap, 1 CAP PO TID for 30 Days, #90 08/13/23 Lisinopril (Lisinopril) 2.5 Mg Tab, 1 TAB PO DAILY for 90 Days, #90 08/13/23 Apixaban Base (ELIQUIS) 5 Mg Tab, 1 TAB PO BID for 45 Days, #90 08/13/23 Aspirin (Aspirin) 81 Mg Chw, 1 TAB PO DAILY for 90 Days, #90 08/13/23 Atorvastatin Calcium (ATORVASTATIN CALCIUM) 40 Mg Tab, 1 TAB PO DAILY for 90 Days, #90 08/13/23 Current Medications Current Medications Medications (Trade) Dose Ordered Sig/Uyen Route PRN Reason Start Time Stop Time Status Last Admin Insulin Glargine (Lantus) 10 units BID@0700,2200 SC 11/13/24 22:00 11/14/24 11:47 DC 11/14/24 05:37 Insulin Glargine (Lantus) 15 units BID@0700,2200 SC 11/14/24 12:00 UNV Vital Signs Vital Signs Date Time Temp Pulse Resp B/P (MAP) Pulse Ox O2 Delivery O2 Flow Rate FiO2 11/14/24 09:10 60 147/69 11/14/24 09:00 99.2 18 98 99.2 11/14/24 07:50 Room Air* 0 21 Physical Exam Dermatological: Skin is dry with mild erythema and some maceration around the wound site No gross deformities noted Mild non-pitting edema present bilaterally Right 2nd toe eschar Vascular: Dorsalis pedis and posterior tibial pulses are 1+ bilaterally Capillary refill is under 2 seconds Skin temperature is warm bilaterally Neurologic: Protective sensation is absent on the plantar forefoot bilaterally Monofilament testing reveals decreased sensation in multiple plantar sites Musculoskeletal: Range of motion at the ankle and MTP joints is within normal limits. Strength is 5/5 in all tested muscle groups. Gait is antalgic due to offloading of the affected limb. Labs/Diagnostic Data Labs Test 11/14/24 12:03 11/10/24 06:28 11/09/24 10:12 11/09/24 08:48 Range/Units POC Glucose 291 H 70-106 mg/dl White Blood Count 4.2 #L 4.4-10.8 10^3/uL Red Blood Count 4.92 4.0-5.20 10^6/uL Hemoglobin 11.9 L 12.2-16.2 g/dL Hematocrit 37.0 36.0-46.0 % Mean Corpuscular Volume 75.2 L 80.0-100.0 fL Mean Corpuscular Hemoglobin 24.2 L 28.0-32.0 pg Mean Corpuscular Hemoglobin Concent 32.1 32.0-36.0 g/dL Red Cell Distribution Width 23.1 H 11.8-14.3 % Platelet Count 112 L 140-450 10^3/uL Mean Platelet Volume 10.3 6.9-10.8 fL Neutrophils (%) (Auto) 69.0 37.0-80.0 % Lymphocytes (%) (Auto) 16.0 10.0-50.0 % Monocytes (%) (Auto) 8.7 0.0-12.0 % Eosinophils (%) (Auto) 6.1 0.0-7.0 % Basophils (%) (Auto) 0.2 0.0-2.0 % Neutrophils # (Auto) 2.9 1.6-8.6 10 ^3/uL Lymphocytes # (Auto) 0.7 0.4-5.4 10 ^3/uL Monocytes # (Auto) 0.4 0-1.3 10 ^3/uL Eosinophils # (Auto) 0.3 0-0.8 10 ^3/uL Basophils # (Auto) 0 0-0.2 10 ^3/uL Nucleated Red Blood Cells 0.3 % Sodium Level 142 # 136-145 mmol/L Potassium Level 4.6 3.5-5.1 mmol/L Chloride Level 106 98-107 mmol/L Carbon Dioxide Level 27 20-31 mmol/L Anion Gap 9 5-15 Blood Urea Nitrogen 20 9-23 mg/dL Creatinine 1.34 H 0.550-1.02 mg/dL Glomerular Filtration Rate Calc 45 >90 mL/min BUN/Creatinine Ratio 14.9 10.0-20.0 Serum Glucose 260 H 74-106 mg/dL Calcium Level 9.8 8.7-10.4 mg/dL Total Bilirubin 0.2 0.2-1.0 mg/dL Aspartate Amino Transferase (AST) 42 H <34 U/L Alanine Aminotransferase (ALT) 28 7-40 U/L Alkaline Phosphatase 65 46-116 U/L Total Protein 6.3 5.7-8.2 g/dL Albumin 4.0 3.2-4.8 g/dL Urine Color Light-yellow Yellow Urine Clarity Clear Clear Urine pH 5.0 5.0-9.0 Urine Specific [place] 1.030 1.001-1.035 Urine Protein Negative Negative Urine Ketones Negative Negative Urine Blood Negative Negative /uL Urine Nitrite Negative Negative Urine Bilirubin Negative Negative Urine Urobilinogen Normal Negative mg/dL Urine Leukocyte Esterase Negative Negative /uL Urine RBC <1 0 - 4 /hpf Urine Microscopic WBC 1 0-5 /HPF Urine Squamous Epithelial Cells Few <5 /hpf Urine Bacteria Few H None Seen /hpf Urine Glucose 4+ H Normal mg/dL Influenza Type A Antigen Negative Negative Influenza Type B Antigen Negative Negative SARS-CoV-2 Antigen (Rapid) Negative NEGATIVE Test 11/09/24 00:15 11/08/24 23:20 11/08/24 21:20 Range/Units Troponin I High Sensitivity 5 </=34 ng/L Lactic Acid Level 2.4 *H 0.4-2.0 mmol/L Lipase 87 H 12-53 U/L Microbiology Date/Time Source Procedure Growth Status 11/08/24 21:25 Blood Blood Culture - Final NO GROWTH AFTER 5 DAYS OF INCUBATION. Complete Problems(with codes): (1) Cellulitis of second toe, right (2) Anemia in chronic kidney disease (CKD) (3) Diabetic nephropathy associated with diabetes mellitus due to underlying condition (4) Generalized weakness (5) Epistaxis (6) Renal failure (7) Foot ulcer (8) Weakness (9) Acute coronary syndrome (10) Uncontrolled diabetes mellitus (11) Acute chest pain (12) Contusion of upper arm, left (13) Occasional tremors (14) Elevated d-dimer (15) Encounter for smoking cessation counseling (16) Hypokalemia (17) Bradycardia (18) Pancreatitis (19) Transaminitis (20) Elevated lactic acid level (21) Hyperglycemia due to diabetes mellitus Plan/Recommendation ASSESSMENT: Patient is a 59 year old seen on the floor for a worsening ulcer PLAN: - The patients chart was reviewed, clinical findings were discussed with the patient, the etiologies of the conditions were discussed in detail, and a treatment plan was agreed to at this time, with both oral and written instructi ons provided. - discussed that the wound appears to be stable - no advanced imaging required - no dressings at this time - allow eschar to heal - follow up with me after discharge All questions were answered and concerns addressed to the patient's satisfa ction. The patient was given the phone number to the clinic and was told how to make contact with the clinic should any concerns or questions arise. Patient understands that if any questions or concerns arise prior to the next appointment, we should be contacted immediately. FOLLOW-UP: Continue to follow while inpatient Plan discussed with: Patient Date of Service: Nov 14, 2024 Billing Provider: JUAN BILLY DPM Common Visit Codes: CONSULT ONLY Consultation Codes: [id number] CONSULT <80MIN JUAN BILLY DPM Nov 14, 2024 12:23
[2024-11-14] MEDS: INSULIN LANTUS (GLARGINE) 1 /0.01ml (100units/ml) SC ONE (14:12)
[2024-11-14] MEDS ORDERED: LORazepam 2MG/ML-1ML VIAL IV PRN (18:00)
[2024-11-14] MEDS: INSULIN LANTUS (GLARGINE) 1 /0.01ml (100units/ml) SC SCH (21:16)
[2024-11-15] VITALS (7 sets, daily range): BP systolic 119–140; BP diastolic 58–79; PULSE 52–66; RESP 18–20; TEMP 97.9–99.1; O2SAT 97–100
[2024-11-16] VITALS (8 sets, daily range): BP systolic 124–154; BP diastolic 55–85; PULSE 48–58; RESP 18–20; TEMP 97.1–98.7; O2SAT 97–100
[2024-11-17 01:00] VITALS: BP 120/63; PULSE 53; RESP 18; TEMP 97.9; O2SAT 95
[2024-11-17 05:00] VITALS: BP 156/80; PULSE 55; RESP 18; TEMP 98; O2SAT 98
[2024-11-17] MEDS: ONDANSETRON HCL 4 MG/2 ML VIAL IV PRN (06:35)
[2024-11-17 08:00] VITALS: PULSE 55; RESP 18; O2SAT 98
[2024-11-17 09:00] VITALS: BP 134/91; PULSE 55; RESP 17; TEMP 97.6; O2SAT 96
[2024-11-17 13:00] VITALS: BP 106/47; PULSE 57; RESP 18; TEMP 97.8; O2SAT 97
[2024-11-17] MEDS ORDERED: INSLANTI SC (13:33)
--- NOTE | 2024-11-17 13:34 | DVHPN2 ---
Reviewed: Care Plan, H&P, Labs, Medications, Previous Orders Changes from previous H/P or p: No Changes General: Per HPI Objective Vitals Vital Signs Date Time Temp Pulse Resp B/P (MAP) Pulse Ox O2 Delivery O2 Flow Rate FiO2 11/17/24 13:00 97.8 57 18 106/47 (66) 97 97.8 11/17/24 08:00 Room Air* 0 21 Intake/Output Intake and Output 11/17/24 07:00 Intake Total 1100 ml Balance 1100 ml Intake Oral 700 ml IV Total 400 ml # Voids 4 # Bowel Movements 1 Medications Current Medications Medications Dose Ordered Sig/Uyen Route Start Time Stop Time Status Last Admin Dose Admin Acetaminophen/ Hydrocodone Bitart 1 tab Q4HP PRN PO 11/09/24 06:45 11/16/24 15:51 1 TAB Ondansetron HCl 4 mg Q4HP PRN IV 11/09/24 06:45 11/17/24 06:35 4 MG Enoxaparin Sodium 40 mg DAILY SC 11/09/24 10:00 Hold Acetaminophen 650 mg Q6HP PRN PO 11/09/24 06:45 Nitroglycerin 0.4 mg Q5MINP PRN SL 11/09/24 06:45 Amiodarone HCl 200 mg BID PO 11/09/24 10:00 11/17/24 09:51 200 MG Apixaban 5 mg BID PO 11/09/24 10:00 11/17/24 09:52 5 MG Metoprolol Tartrate 25 mg DAILY PO 11/09/24 10:00 11/17/24 09:52 25 MG Patient Own Medication 1 tab DAILY PO 11/09/24 10:00 11/17/24 09:52 1 TAB Aspirin 81 mg DAILY PO 11/09/24 10:00 11/17/24 09:52 81 MG Atorvastatin Calcium 40 mg HS PO 11/09/24 22:00 11/16/24 21:57 40 MG Potassium Chloride 10 meq DAILY PO 11/09/24 10:00 11/17/24 09:51 10 MEQ Ampicillin Sodium/ Sulbactam Sodium 3 gm/Sodium Chloride 100 ml @ 100 mls/hr Q6H IV 11/09/24 08:45 UNV Azithromycin 250 ml @ 125 mls/hr DAILY IV 11/09/24 10:00 UNV Metronidazole 100 ml @ 100 mls/hr Q8HR IV 11/10/24 06:00 11/17/24 05:59 100 MLS/HR Levofloxacin/ Dextrose 100 ml @ 100 mls/hr DAILY@1800 IV 11/10/24 18:00 11/16/24 17:08 100 MLS/HR Morphine Sulfate 2 mg Q4HPRN PRN IV 11/11/24 08:15 11/13/24 01:04 2 MG Morphine Sulfate 1 mg Q4HP PRN IV 11/11/24 14:30 Lactulose 30 ml Q6HPRN PRN PO 11/11/24 14:30 11/11/24 18:45 30 ML Diagnostic Test (Pha) 1 strip IQ4HR 11/13/24 00:00 11/17/24 11:56 1 STRIP Insulin Human Regular IQ4HR SC 11/13/24 00:00 11/17/24 12:07 9 UNITS Dextrose 50 ml UD PRN IV 11/13/24 00:00 Pregabalin 200 mg TID PO 11/13/24 08:00 11/17/24 05:54 200 MG Insulin Glargine 15 units BID@0700,2200 SC 11/14/24 22:00 11/17/24 06:35 15 UNITS Lorazepam 2 mg Q5MINP PRN IV 11/14/24 18:00 Laboratory Results Laboratory Tests 11/10/24 06:28 Urinalysis Test 11/09/24 10:12 Urine Color Light-yellow (Yellow) Urine Clarity Clear (Clear) Urine pH 5.0 (5.0-9.0) Urine Specific [place] 1.030 (1.001-1.035) Urine Protein Negative (Negative) Urine Ketones Negative (Negative) Urine Blood Negative /uL (Negative) Urine Nitrite Negative (Negative) Urine Bilirubin Negative (Negative) Urine Urobilinogen Normal mg/dL (Negative) Urine Leukocyte Esterase Negative /uL (Negative) Urine RBC <1 /hpf (0 - 4) Urine Microscopic WBC 1 /HPF (0-5) Urine Squamous Epithelial Cells Few /hpf (<5) Urine Bacteria Few /hpf (None Seen) H Urine Glucose 4+ mg/dL (Normal) H Microbiology Microbiology Date/Time Source Procedure Growth Status 11/08/24 21:25 Blood Blood Culture - Final NO GROWTH AFTER 5 DAYS OF INCUBATION. Complete Assessment/Plan Assessment/Plan 59-year-old female comes to ER by EMS with nausea, shortness of breath and chest pain concerns since yesterday. Patient has multiple comorbidities including a history of HIV on antiretrovirals with undetectable viral load, DM type 2 insulin-dependent, CKD stage 3, hypertension, chronic respiratory failure, GERD, atrial fibrillation on Eliquis, and congestive heart failure. Patient had recent onset nausea and then associated chest pain and shortness of breath. Chest pain localized to substernal retrosternal described as sharp. She has dry heaving but no vomiting. Complaining of dizziness, chest discomfort and shortness a breath for the past hour prior to coming here. Patient is a very poor historian. Vital signs were stable on arrival. My Orders Orders - BETHANY JEFF DO Procedure Category Date Status Time Consistent DIET 11/16/24 Transmitted Carb(Ccho)Diabetes Dinner * Hand Ironer CONS 11/17/24 Transmitted Consult 09:48 Date of Service: Nov 16, 2024 Billing Provider: BETHANY JEFF DO Common Visit Codes: [id number] INP/OBS CARE(HIGH) BETHANY JEFF DO Nov 17, 2024 13:34
--- NOTE | 2024-11-17 13:34 | DVHDS2 ---
Discharge Summary Date of Admission Nov 09, 2024 at 06:35 Date of Discharge: Nov 17, 2024 Labs/Diagnostic Data: Laboratory Results Test 11/17/24 11:53 11/10/24 06:28 11/09/24 10:12 11/09/24 08:48 POC Glucose 259 mg/dl (70-106) White Blood Count 4.2 10^3/uL (4.4-10.8) Red Blood Count 4.92 10^6/uL (4.0-5.20) Hemoglobin 11.9 g/dL (12.2-16.2) Hematocrit 37.0 % (36.0-46.0) Mean Corpuscular Volume 75.2 fL (80.0-100.0) Mean Corpuscular Hemoglobin 24.2 pg (28.0-32.0) Mean Corpuscular Hemoglobin Concent 32.1 g/dL (32.0-36.0) Red Cell Distribution Width 23.1 % (11.8-14.3) Platelet Count 112 10^3/uL (140-450) Mean Platelet Volume 10.3 fL (6.9-10.8) Neutrophils (%) (Auto) 69.0 % (37.0-80.0) Lymphocytes (%) (Auto) 16.0 % (10.0-50.0) Monocytes (%) (Auto) 8.7 % (0.0-12.0) Eosinophils (%) (Auto) 6.1 % (0.0-7.0) Basophils (%) (Auto) 0.2 % (0.0-2.0) Neutrophils # (Auto) 2.9 10 ^3/uL (1.6-8.6) Lymphocytes # (Auto) 0.7 10 ^3/uL (0.4-5.4) Monocytes # (Auto) 0.4 10 ^3/uL (0-1.3) Eosinophils # (Auto) 0.3 10 ^3/uL (0-0.8) Basophils # (Auto) 0 10 ^3/uL (0-0.2) Nucleated Red Blood Cells 0.3 % Sodium Level 142 mmol/L (136-145) Potassium Level 4.6 mmol/L (3.5-5.1) Chloride Level 106 mmol/L (98-107) Carbon Dioxide Level 27 mmol/L (20-31) Anion Gap 9 (5-15) Blood Urea Nitrogen 20 mg/dL (9-23) Creatinine 1.34 mg/dL (0.550-1.02) Glomerular Filtration Rate Calc 45 mL/min (>90) BUN/Creatinine Ratio 14.9 (10.0-20.0) Serum Glucose 260 mg/dL (74-106) Calcium Level 9.8 mg/dL (8.7-10.4) Total Bilirubin 0.2 mg/dL (0.2-1.0) Aspartate Amino Transferase (AST) 42 U/L (<34) Alanine Aminotransferase (ALT) 28 U/L (7-40) Alkaline Phosphatase 65 U/L (46-116) Total Protein 6.3 g/dL (5.7-8.2) Albumin 4.0 g/dL (3.2-4.8) Urine Color Light-yellow (Yellow) Urine Clarity Clear (Clear) Urine pH 5.0 (5.0-9.0) Urine Specific [place] 1.030 (1.001-1.035) Urine Protein Negative (Negative) Urine Ketones Negative (Negative) Urine Blood Negative /uL (Negative) Urine Nitrite Negative (Negative) Urine Bilirubin Negative (Negative) Urine Urobilinogen Normal mg/dL (Negative) Urine Leukocyte Esterase Negative /uL (Negative) Urine RBC <1 /hpf (0 - 4) Urine Microscopic WBC 1 /HPF (0-5) Urine Squamous Epithelial Cells Few /hpf (<5) Urine Bacteria Few /hpf (None Seen) Urine Glucose 4+ mg/dL (Normal) Influenza Type A Antigen Negative (Negative) Influenza Type B Antigen Negative (Negative) SARS-CoV-2 Antigen (Rapid) Negative (NEGATIVE) Test 11/09/24 00:15 11/08/24 23:20 11/08/24 21:20 Troponin I High Sensitivity 5 ng/L (</=34) Lactic Acid Level 2.4 mmol/L (0.4-2.0) Lipase 87 U/L (12-53) Other Laboratory Tests 11/10/24 06:28 Discharge Disposition: Home with Health Services Discharge Instruct/Medications Diet: Cardiac 2g Na,low cholest Activity: No Restrictions, As Tolerated Discharge Statement: "Patient was advised to return to the ER or call 911 if any headaches, dizziness, shortness of breath, chest pain, abdominal pain, bleeding, fevers, or worsening of medical condition. Patient was counseled about treatment plan, medications, possible side effects, patientverbalized understanding. All questions were answered to the best of my ability. This discharge took greater then 30 minutes in planning, reviewing documentation, counseling the patient, and discussing with other team members." ASSESSMENT ASSESSMENT Assessment Date of Service: Nov 17, 2024 Billing Provider: BETHANY JEFF DO Common Visit Codes: 71724-FRI/OBS DISCH DAY >30min BETHANY JEFF DO Nov 17, 2024 13:34
--- NOTE | 2024-11-18 14:48 | DVHPN2 ---
Reviewed: Care Plan, H&P, Labs, Medications, Previous Orders Changes from previous H/P or p: No Changes General: Per HPI Objective Vitals Vital Signs Date Time Temp Pulse Resp B/P (MAP) Pulse Ox O2 Delivery O2 Flow Rate FiO2 11/17/24 13:00 97.8 57 18 106/47 (66) 97 97.8 11/17/24 08:00 Room Air* 0 21 Intake/Output Intake and Output 11/18/24 07:00 Intake Total 100 ml Balance 100 ml IV Total 100 ml General Appearance: Alert, Oriented X3, Cooperative HEENT: Atraumatic Lungs: Clear to auscultation Cardiovascular: Regular rate, Normal S1, Normal S2 Abdomen: Normal bowel sounds, Soft Extremities: No clubbing, No cyanosis Neuro: Normal gait, Normal speech Medications Current Medications Medications Dose Ordered Sig/Uyen Route Start Time Stop Time Status Last Admin Dose Admin Ampicillin Sodium/ Sulbactam Sodium 3 gm/Sodium Chloride 100 ml @ 100 mls/hr Q6H IV 11/09/24 08:45 UNV Azithromycin 250 ml @ 125 mls/hr DAILY IV 11/09/24 10:00 UNV Laboratory Results Laboratory Tests 11/10/24 06:28 Urinalysis Test 11/09/24 10:12 Urine Color Light-yellow (Yellow) Urine Clarity Clear (Clear) Urine pH 5.0 (5.0-9.0) Urine Specific [place] 1.030 (1.001-1.035) Urine Protein Negative (Negative) Urine Ketones Negative (Negative) Urine Blood Negative /uL (Negative) Urine Nitrite Negative (Negative) Urine Bilirubin Negative (Negative) Urine Urobilinogen Normal mg/dL (Negative) Urine Leukocyte Esterase Negative /uL (Negative) Urine RBC <1 /hpf (0 - 4) Urine Microscopic WBC 1 /HPF (0-5) Urine Squamous Epithelial Cells Few /hpf (<5) Urine Bacteria Few /hpf (None Seen) H Urine Glucose 4+ mg/dL (Normal) H Microbiology Microbiology Date/Time Source Procedure Growth Status 11/08/24 21:25 Blood Blood Culture - Final NO GROWTH AFTER 5 DAYS OF INCUBATION. Complete Assessment/Plan Assessment/Plan 59-year-old female comes to ER by EMS with nausea, shortness of breath and chest pain concerns since yesterday. Patient has multiple comorbidities including a history of HIV on antiretrovirals with undetectable viral load, DM type 2 insulin-dependent, CKD stage 3, hypertension, chronic respiratory failure, GERD, atrial fibrillation on Eliquis, and congestive heart failure. Patient had recent onset nausea and then associated chest pain and shortness of breath. Chest pain localized to substernal retrosternal described as sharp. She has dry heaving but no vomiting. Complaining of dizziness, chest discomfort and shortness a breath for the past hour prior to coming here. Patient is a very poor historian. Vital signs were stable on arrival. Gastroenteritis, infectious etiology likely Pneumonia possible, Gram-negative Gram-positive likely Rule out SBO Lactic acidosis Intractable nausea and vomiting Transaminitis Mild pancreatitis, ruled in Hypokalemia Chest pain HIV on antiretrovirals with undetectable viral load DM type 2 insulin-dependent TOÑA/CKD stage 3 (vasomotor neprhopathy) hypertension chronic respiratory failure GERD atrial fibrillation on Eliquis congestive heart failure DM type II with hyperglycemia -- pt is homeless -- requested case management to assist with finding placement Plan discussed with: Patient Date of Service: Nov 17, 2024 Billing Provider: BETHANY JEFF DO Common Visit Codes: [id number] INP/OBS CARE(HIGH) BETHANY JEFF DO Nov 18, 2024 14:48
== END 2024-11-17 16:34 | disposition home or self-care (01) | DRG 282 ==
LOC: ER 21:10 → EDBD 21:10 → OVERFLOW 11-09 06:35 → TELE-WESTW 11-09 18:57
PROVIDERS: ADMIT Internal Medicine; ATTEND Internal Medicine
DX: K85.90 Acute pancreatitis without necrosis or infection, unspecified (principal); J15.69 Pneumonia due to other Gram-negative bacteria; E87.20 Acidosis, unspecified; I13.0 Hypertensive heart and chronic kidney disease with heart failure and stage 1 through stage 4 chronic kidney disease, or unspecified chronic kidney disease; J15.9 Unspecified bacterial pneumonia; J96.10 Chronic respiratory failure, unspecified whether with hypoxia or hypercapnia; I50.9 Heart failure, unspecified; E11.22 Type 2 diabetes mellitus with diabetic chronic kidney disease; A09 Infectious gastroenteritis and colitis, unspecified; E89.0 Postprocedural hypothyroidism; E11.65 Type 2 diabetes mellitus with hyperglycemia; N18.30 Chronic kidney disease, stage 3 unspecified; Z20.822 Contact with and (suspected) exposure to COVID-19; K21.9 Gastro-esophageal reflux disease without esophagitis; E87.6 Hypokalemia; I48.91 Unspecified atrial fibrillation; F17.210 Nicotine dependence, cigarettes, uncomplicated; E87.5 Hyperkalemia; R00.1 Bradycardia, unspecified; R74.01 Elevation of levels of liver transaminase levels; Z88.0 Allergy status to penicillin; Z83.3 Family history of diabetes mellitus; Z82.49 Family history of ischemic heart disease and other diseases of the circulatory system; Z79.899 Other long term (current) drug therapy; Z79.4 Long term (current) use of insulin; Z79.01 Long term (current) use of anticoagulants
CPT/HCPCS: 36415; 71045; 74176; 80053; 81001; 82962; 83605; 83690; 84484; 85025; 87040; 87426; 87804; 93005; 96361; 96374; 96375; 97110; 97116; 97163; 97530; G0378; J1815; J1885; J1956; J2405; J3490

== ENCOUNTER 2024-12-03 23:45 | Inpatient (IN) | payer MEDICAID ==
[~2024-12-03] VITALS: Ht 165.1 cm; Wt 97.5 kg
[~2024-12-03 23:45] MED LIST changes: +INSLANTI SC
[2024-12-04] VITALS (7 sets, daily range): BP systolic 126–143; BP diastolic 71–89; PULSE 47–55; RESP 14–18; TEMP 97.6–97.7; O2SAT 97–100
--- NOTE | 2024-12-04 00:12 | ED.PDOC ---
History of Present Illness HPI Comments 59 year old female presents to the ED via EMS with a chief complaint of dizziness onset today (12/04/24). Per EMS, patient initially called 911 due to LT foot bleeding, upon EMS arrival, bleeding was controlled, dressing was changed. Right after EMS left patient began experiencing dizziness, called 911 requesting to be taken to a hospital. Patient is currently experiencing headache, chills, dizziness. Patient is currently on Eliquis. BS was 197, BP was 173/98. PMHx DM, a-fib, HTN, HIV, seizures, CKF. Denies fevers, chills, cough, congestion, chest pain, shortness of breath, dysuria, hematuria. No other symptoms or modifying factors present a this time. Patient's blood sugar noted to be low with EMS. Patient reports having just taken her insulin prior to arrival. Patient reports the bleeding in her foot has stopped. Patient does have discoloration of the right lower extremity ongoing for over a month secondary to foot injury 1 month ago. Chief Complaint: Dizziness Time Seen by MD: 00:00 Primary Care Provider: unknown Reviewed Notes: Medications, Allergies Allergies: Coded Allergies: Loperamide (Verified Allergy, Severe, 08/13/23) Nystatin (Verified Allergy, Severe, 08/13/23) Penicillins (Verified Allergy, Severe, 08/13/23) Diphenhydramine (Verified Allergy, Unknown, 09/23/24) Home Meds Active Scripts Insulin Glargine (Lantus) 100 Unit/Ml Inj, 15 UNITS SC BID@0700,2200 for 30 Days, #90 INJ 1 Refill Prov:BETHANY JEFF DO 11/17/24 Reported Medications Amiodarone HCl (Amiodarone HCl) 200 Mg Tab, 1 TAB PO BID for 90 Days, #180 08/18/24 Insulin Glargine (Basaglar Kwikpen) 100 Unit/Ml Inj, 100 UNITS SC BID for 30 Days, #60 08/18/24 Insulin Lispro (Insulin Lispro Kwikpen) 100 Unit/Ml Inj, 10 UNITS SC DAILY for 100 Days, #15 08/18/24 Cetirizine HCl (Cetirizine Hydrochloride) 10 Mg Tab, 1 TAB PO DAILY for 90 Days, #90 08/18/24 Dapagliflozin Propanediol (Dapagliflozin Propanediol) 5 Mg Tab, 1 TAB PO DAILY for 100 Days, #100 08/18/24 Ferrous Sulfate (Ferosul) 325 Mg Tab, 1 TAB PO DAILY for anemia 06/08/24 Jkvwltiq-Bvicafkfzggn-Sawmflja (Triumeq 600-50-300 mg) 1 Tab Tab, 1 TAB PO DAILY for 30 Days, #30 06/08/24 Sitagliptin Phosphate (Januvia) 100 Mg Tab, 1 DAILY for 90 Days, #90 06/08/24 Metoprolol Tartrate (Metoprolol Tartrate) 25 Mg Tab, 25 MG PO DAILY for 90 Days, #90 06/06/24 Fenofibrate (FENOFIBRATE) 145 Mg Tab, 1 TAB PO DAILY for 90 Days, #90 06/06/24 Potassium Chloride (POTASSIUM CHLORIDE CR) 10 Meq Tb, 1 TAB PO DAILY for 30 Days, #30 06/06/24 Cyclobenzaprine HCl (Cyclobenzaprine Hydrochlo) 10 Mg Tab, 1 TAB PO BID PRN for PAIN FOR MUSCLE SPASMS for 30 Days, #15 08/13/23 Famotidine (Famotidine) 20 Mg Tab, 1 TAB PO BID PRN for ACID REFLUX AND ABDOMINAL PAIN for 90 Days, #180 08/13/23 Furosemide (Furosemide) 40 Mg Tab, 1 TAB PO DAILY for 90 Days, #90 08/13/23 Hydrocodone-Acetaminophen (Hydrocodone/Acetaminophen 5-325 mg) 1 Tab Tab, 2 TAB PO BID 08/13/23 Pregabalin (Pregabalin) 200 Mg Cap, 1 CAP PO TID for 30 Days, #90 08/13/23 Lisinopril (Lisinopril) 2.5 Mg Tab, 1 TAB PO DAILY for 90 Days, #90 08/13/23 Apixaban Base (ELIQUIS) 5 Mg Tab, 1 TAB PO BID for 45 Days, #90 08/13/23 Aspirin (Aspirin) 81 Mg Chw, 1 TAB PO DAILY for 90 Days, #90 08/13/23 Atorvastatin Calcium (ATORVASTATIN CALCIUM) 40 Mg Tab, 1 TAB PO DAILY for 90 Days, #90 08/13/23 Information Source: Patient, Emergency Med Personnel Mode of Arrival: EMS Severity: Moderate Timing: Hours Duration: Since onset Prehospital treatment: None Vital Signs Vital Signs Date Time Temp Pulse Resp B/P (MAP) Pulse Ox O2 Delivery O2 Flow Rate FiO2 12/04/24 00:46 66 12/03/24 23:45 98.2 18 179/93 (121) 98 98.2 Physical Exam PHYSICAL EXAM: General: Awake, alert and oriented. No acute distress. Skin: Skin in warm, dry and intact. Appropriate color for ethnicity. HEENT: The head is normocephalic and atraumatic. Conjunctivae are clear without exudates or hemorrhage. Sclera is non-icteric. EOM are intact. No signs of nystagmus. Eyelids are normal in appearance without swelling or lesions. Oral mucosa is pink and moist Neck: The neck is supple with normal range of motion. No JVD. Cardiac: Heart rate and rhythm are normal. No murmurs, gallops, or rubs are auscultated. Respiratory: No signs of respiratory distress. Lung sounds are clear in all lobes bilaterally without rales, rhonchi, or wheezes. Abdominal: Abdomen is soft, with generalized tenderness without distention, guarding or rigidity. Bowel sounds are present and normoactive in all four quadrants. Extremities: Left lower extremity with dressing in place. Right lower extremity good DP pulse, positive varicose veins in purplish discoloration of the right foot. Neurological: The patient is awake, alert and oriented to person, place, and time with normal speech. Speech is clear. There is no facial asymmetry. Review of Systems: REVIEW OF SYSTEMS: General: No fever, no chills, or fatigue HEENT: No sore throat, no earache, no congestion, no neck pain. Cardiac: No chest pain. No palpitations. Lungs: No shortness of breath, no cough. GI: No nausea, no vomiting, no diarrhea, no constipation, no abdominal pain : No dysuria, frequency, or urgency. No hematuria. Musculoskeletal: No joint pain , no joint swelling, no extremity edema. Skin: No rash, no itching. Neuro: No headache, no dizziness, no weakness Past Medical History PAST MEDICAL HISTORY: CHF, CKF, DM, HIV, HTN, Seizures Surgical History: Cholecystectomy, Hernia Repair, Thyroidectomy [employer] DRUM CONTINUOUS PROCESS History: No Pertinent [employer]AN[employer]OT[employer] DRUM CONTINUOUS PROCESS History Family History Family History: Reviewed,noncontributory to illness, Unknown Social History Smoker: Cigarettes Alcohol: Denies ETOH Use Drugs: Denies Drug Use Lives In: Home Was a procedure done? Was a procedure done?: No EKG EKG : Pulse Rate (adult): 66 Cardiac Rhythm: NSR Comments No STEMI Differential Dx Considerations may include: Differential diagnoses considered include but are not limited to cardiac structural disease, arrhythmia, acute coronary syndrome, orthostasis, pulmonary embolism, dissection, seizure, basilar stroke, other. X-Ray, Labs, Meds, VS Vital Signs Date Time Temp Pulse Resp B/P (MAP) Pulse Ox O2 Delivery O2 Flow Rate FiO2 12/04/24 00:46 66 12/03/24 23:45 98.2 72 18 179/93 (121) 98 98.2 Lab Test 12/04/24 01:24 12/04/24 00:23 Range/Units Troponin I High Sensitivity 4 3 L </=34 ng/L White Blood Count 6.2 4.4-10.8 10^3/uL Red Blood Count 5.56 H 4.0-5.20 10^6/uL Hemoglobin 14.2 12.2-16.2 g/dL Hematocrit 43.8 36.0-46.0 % Mean Corpuscular Volume 78.7 L 80.0-100.0 fL Mean Corpuscular Hemoglobin 25.6 L 28.0-32.0 pg Mean Corpuscular Hemoglobin Concent 32.5 32.0-36.0 g/dL Red Cell Distribution Width 25.5 H 11.8-14.3 % Platelet Count 173 140-450 10^3/uL Mean Platelet Volume 9.0 6.9-10.8 fL Neutrophils (%) (Auto) 69.2 37.0-80.0 % Lymphocytes (%) (Auto) 16.9 10.0-50.0 % Monocytes (%) (Auto) 9.6 0.0-12.0 % Eosinophils (%) (Auto) 3.3 0.0-7.0 % Basophils (%) (Auto) 1.0 0.0-2.0 % Neutrophils # (Auto) 4.3 1.6-8.6 10 ^3/uL Lymphocytes # (Auto) 1.1 0.4-5.4 10 ^3/uL Monocytes # (Auto) 0.6 0-1.3 10 ^3/uL Eosinophils # (Auto) 0.2 0-0.8 10 ^3/uL Basophils # (Auto) 0.1 0-0.2 10 ^3/uL Nucleated Red Blood Cells 0.1 % Platelet Estimate Adequate Anisocytosis (manual) Slight Microcytosis Slight Sodium Level 143 136-145 mmol/L Potassium Level 3.0 L 3.5-5.1 mmol/L Chloride Level 108 H 98-107 mmol/L Carbon Dioxide Level 26 20-31 mmol/L Anion Gap 9 5-15 Blood Urea Nitrogen 21 9-23 mg/dL Creatinine 1.47 H 0.550-1.02 mg/dL Glomerular Filtration Rate Calc 41 >90 mL/min BUN/Creatinine Ratio 14.3 10.0-20.0 Serum Glucose 60 L 74-106 mg/dL Calcium Level 10.7 H 8.7-10.4 mg/dL B-Type Natriuretic Peptide 22.39 0-100 pg/mL CHEST RADIOGRAPH Indication: cp Technique: Single frontal view of the chest was obtained COMPARISON: XY CHEST PORTABLE on DOS: 11/08/24, XY CHEST XRAY 1 VIEW on DOS: 10/17/24, XY CHEST XRAY 1 VIEW on DOS: 09/23/24, XY CHEST XRAY 1 VIEW on DOS: 08/16/24, XY CHEST PORTABLE on DOS: 08/14/24 FINDINGS: Lines and Tubes: None Lungs: Clear Pleura: No effusion. No pneumothorax. Cardiomediastinal contours: Unremarkable Bones: Unremarkable IMPRESSION: 1. No acute disease. ATED BY: SABAS BARRERA MD DICTATED DATE/TIME: 12/04/24131 SIGNED BY: SABAS BARRERA MD SIGNED DATE/TIME: 12/04/24131 CC: Time of 1ST Reevaluation: 00:30 Reevaluation 1ST: Unchanged Patient Education/Counseling: Need For Follow Up Family Education/Counseling: No Family Present SEPSIS Sepsis Screen Date sepsis recognized/suspect: Dec 04, 2024 Time Sepsis recognized/suspect: 2344 Recent Procedure: No On Antibiotic Therapy: No Respiratory Rate >20: No Heart Rate >90: No Temp<36 C (96.8 F) or >38.3 C: No SBP <90 or MAP <65 mmHG: No New Acute Mental Status Change: No Is the patient on CPAP, BIPAP,: No Physician Orders Electrocardigram (12/04/24 00:16) Chest Xray 1 View (12/04/24 00:16) Vital Signs Q1HR (12/04/24 00:16) Electrocardigram (12/04/24 01:16) Electrocardigram (12/04/24 03:16) Blood Glucose Assessment (12/04/24 02:19) Saline Lock (12/04/24 02:43) Vital Signs Date Time Temp Pulse Resp B/P (MAP) Pulse Ox O2 Delivery O2 Flow Rate FiO2 12/04/24 00:46 66 12/03/24 23:45 98.2 72 18 179/93 (121) 98 98.2 Laboratory Tests Test 12/04/24 00:23 White Blood Count 6.2 10^3/uL (4.4-10.8) Departure 1 Departure Time of Disposition: 02:44 Impression: Primary Impression: Dizziness Additional Impressions: Hypokalemia Hypoglycemia Disposition: ADMITTED INPATIENT Condition: Stable Comments MDM: Patient admitted to hospitalist service for further treatment, evaluation and monitoring. Extensive evaluation was performed in attempt to identify or rule out: (See differential diagnosis section) The following tests were ordered, and results were reviewed by me and discussed with patient: (See diagnostic results section) The following test were independently interpreted by me: EKG I reviewed and agreed with the following test results read by other providers: Chest x-ray I reviewed the following notes from the pt's past medical encounters: N/A Additional information was gathered from interviewing the following independent historians: EMS personnel Discussion of management or test interpretation with external physician/other qualified health reservoir caretaker: N/A Addressed an acute or chronic illness that poses a threat to life or bodily function: Hyperglycemia, hypokalemia, dizziness Decision regarding hospitalization or escalation of hospital level of care: Risk and benefits of admission for further treatment of patient's condition was considered. Due to patient's current clinical condition, high risk of decline and poor outcome if discharged and need for further inpatient management and monitoring, patient will be admitted to the hospital. Critical Care Note Critical Care Time?: No Stability Stability form required: No I personally scribed for DESIRAE WAYNE MD ([email or web address]) on 12/04/24 at 00:12. Electronically submitted by Celeste Zimmerman ([email or web address]). I personally scribed for DESIRAE WAYNE MD ([email or web address]) on 12/04/24 at 00:46. Electronically submitted by Celeste Zimmerman ([email or web address]). DESIRAE WAYNE MD Dec 04, 2024 00:12
[2024-12-04 00:35] LABS: Nucleated Red Blood Cells % 0.1 %
[2024-12-04 00:37] LABS: Hematocrit 43.8 % (36.0-46.0); Hemoglobin 14.2 g/dL (12.2-16.2); Mean Corpuscular Hemoglobin 25.6 pg (28.0-32.0); Mean Corpuscular Volume 78.7 fL (80.0-100.0)
[2024-12-04 01:21] LABS: Anisocytosis Slight
--- NOTE | 2024-12-04 01:35 | DVH ---
CHEST RADIOGRAPH Indication: cp Technique: Single frontal view of the chest was obtained COMPARISON: XY CHEST PORTABLE on DOS: 11/08/24, XY CHEST XRAY 1 VIEW on DOS: 10/17/24, XY CHEST XRAY 1 VIEW on DOS: 09/23/24, XY CHEST XRAY 1 VIEW on DOS: 08/16/24, XY CHEST PORTABLE on DOS: 08/14/24 FINDINGS: Lines and Tubes: None Lungs: Clear Pleura: No effusion. No pneumothorax. Cardiomediastinal contours: Unremarkable Bones: Unremarkable IMPRESSION: 1. No acute disease.
[2024-12-04 02:00] LABS: Sodium 143 mmol/L (136-145)
[2024-12-04 02:01] LABS: Anion Gap 9 (5-15); Carbon Dioxide 26 mmol/L (20-31)
[2024-12-04 02:02] LABS: Calcium 10.7 mg/dL (8.7-10.4); Chloride 108 mmol/L (98-107); Potassium 3.0 mmol/L (3.5-5.1)
[2024-12-04 02:06] LABS: BUN/Creatinine Ratio 14.3 (10.0-20.0); Blood Urea Nitrogen 21 mg/dL (9-23)
[2024-12-04 02:08] LABS: Glucose 60 mg/dL (74-106)
[2024-12-04] MEDS: GLUCAGON EMERG KIT 1mg/1ml IM ONE (02:53)
[2024-12-04] MEDS: POTASSIUM CHL 20 Meq TABLET PO ONE (03:04)
[2024-12-04] MEDS: SODIUM CHLORIDE 0.9% 500 ML IV ONE (04:37)
[2024-12-04] MEDS: ACETAMINOPHEN 500 MG TAB or CAP PO ONE (05:50)
[2024-12-04] MEDS ORDERED: MORPHINE SULFATE INJ 2 MG/ml SYRG IV PRN (08:30)
[2024-12-04] MEDS ORDERED: NITROGLYCERIN 0.4 MG SL TAB SL PRN ×2 (08:30)
[2024-12-04] MEDS ORDERED: ACETAMINOPHEN 325 MG TAB PO PRN (08:30)
--- NOTE | 2024-12-04 08:39 | DVHHP2 ---
History of Present Illness Reason for Visit: Chest pain with dizziness and left lower extremity bleeding History of Present Illness Bhargavi Lezama is a 59-year-old female with past medical history of seizures, CHF, AFib on Eliquis, diabetes, HIV on Triumeq, CKD 3, respiratory failure, GERD, obesity, cholecystectomy, hernia repair, thyroidectomy, right foot surgery, and bilateral carpal tunnel surgery who presents to the ED with chest pain that started yesterday and left lower extremity bleeding. Patient states that she was perked yesterday when she was using her wheelchair. She points to the medial aspect of her ankle on the left side. She also complains that her pain in her chest is 10/10 stabbing like and constant. She states that there are no triggering or alleviating factors. Patient was called initially and saw her outside smoking. Patient denies shortness of breath, fever, chills, lightheadedness, weakness, dizziness, abdominal pain, nausea, vomiting, diarrhea, urinary symptoms, recent sick contacts, recent travels, or recent ingestion of spoiled food. Patient reports that she is compliant with her medications. 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: Seizure GI: GERD Infectious disease: HIV Renal/: Chronic renal insuff Endocrine: Diabetes Past Medical History Respiratory failure Past Surgical History: Cholecystectomy, Hernia Repair, Other (Thyroidectomy, right foot surgery, and bilateral carpal tunnel surgery) Family History: None Smoke: <1 pack per day ALCOHOL: none Drugs: None Lives: Other Domestic Violence: Neg Review of Systems Skin: Other (Left lower extremity bleeding) Allergies: Coded Allergies: Loperamide (Verified Allergy, Severe, 08/13/23) Nystatin (Verified Allergy, Severe, 08/13/23) Penicillins (Verified Allergy, Severe, 08/13/23) Diphenhydramine (Verified Allergy, Unknown, 09/23/24) Medications Current Medications Medications Dose Ordered Sig/Uyen Route Start Time Stop Time Status Last Admin Dose Admin Aspirin 81 mg DAILY PO 12/04/24 10:00 UNV Atorvastatin Calcium 40 mg HS PO 12/04/24 22:00 UNV Morphine Sulfate 2 mg Q30MP PRN IV 12/04/24 08:30 UNV Acetaminophen 650 mg Q6HP PRN PO 12/04/24 08:30 UNV Nitroglycerin 0.4 mg Q5MINP PRN SL 12/04/24 08:30 UNV Nitroglycerin 0.4 mg Q5MINP PRN SL 12/04/24 08:30 UNV Morphine Sulfate 2 mg Q30M PRN IV 12/04/24 08:30 UNV Amiodarone HCl 200 mg BID PO 12/04/24 10:00 UNV Apixaban 5 mg BID PO 12/04/24 10:00 UNV Metoprolol Tartrate 25 mg DAILY PO 12/04/24 10:00 UNV Patient Own Medication 1 tab DAILY PO 12/04/24 10:00 UNV Patient Own Medication 1 tab DAILY PO 12/04/24 10:00 UNV Patient Own Medication 1 tab DAILY PO 12/04/24 10:00 UNV Patient Own Medication 1 tab DAILY PO 12/04/24 10:00 UNV Patient Own Medication 1 tab DAILY PO 12/04/24 10:00 UNV Patient Own Medication 1 cap TID PO 12/04/24 14:00 UNV Exam Vital Signs Vital Signs Date Time Temp Pulse Resp B/P (MAP) Pulse Ox O2 Delivery O2 Flow Rate FiO2 12/04/24 05:31 55 13 125/55 (78) 98 12/04/24 04:10 97.5 97.5 General Appearance: Alert, Oriented X3, Cooperative, No acute distress HEENT: Atraumatic, PERRLA, EOMI, Mucous membr. moist/pink Respiratory: Normal air movement Cardiovascular: Normal S1, Normal S2 Abdominal: Normal bowel sounds, Soft Extremities: No cyanosis Neuro: Normal speech, Normal tone, Sensation intact Psych/Mental Status: Mental status NL, Mood NL Labs/Xrays Labs Test 12/04/24 06:57 12/04/24 05:18 12/04/24 00:23 Range/Units Troponin I High Sensitivity 4 </=34 ng/L POC Glucose 135 H 70-106 mg/dl White Blood Count 6.2 4.4-10.8 10^3/uL Red Blood Count 5.56 H 4.0-5.20 10^6/uL Hemoglobin 14.2 12.2-16.2 g/dL Hematocrit 43.8 36.0-46.0 % Mean Corpuscular Volume 78.7 L 80.0-100.0 fL Mean Corpuscular Hemoglobin 25.6 L 28.0-32.0 pg Mean Corpuscular Hemoglobin Concent 32.5 32.0-36.0 g/dL Red Cell Distribution Width 25.5 H 11.8-14.3 % Platelet Count 173 140-450 10^3/uL Mean Platelet Volume 9.0 6.9-10.8 fL Neutrophils (%) (Auto) 69.2 37.0-80.0 % Lymphocytes (%) (Auto) 16.9 10.0-50.0 % Monocytes (%) (Auto) 9.6 0.0-12.0 % Eosinophils (%) (Auto) 3.3 0.0-7.0 % Basophils (%) (Auto) 1.0 0.0-2.0 % Neutrophils # (Auto) 4.3 1.6-8.6 10 ^3/uL Lymphocytes # (Auto) 1.1 0.4-5.4 10 ^3/uL Monocytes # (Auto) 0.6 0-1.3 10 ^3/uL Eosinophils # (Auto) 0.2 0-0.8 10 ^3/uL Basophils # (Auto) 0.1 0-0.2 10 ^3/uL Nucleated Red Blood Cells 0.1 % Platelet Estimate Adequate Anisocytosis (manual) Slight Microcytosis Slight Sodium Level 143 136-145 mmol/L Potassium Level 3.0 L 3.5-5.1 mmol/L Chloride Level 108 H 98-107 mmol/L Carbon Dioxide Level 26 20-31 mmol/L Anion Gap 9 5-15 Blood Urea Nitrogen 21 9-23 mg/dL Creatinine 1.47 H 0.550-1.02 mg/dL Glomerular Filtration Rate Calc 41 >90 mL/min BUN/Creatinine Ratio 14.3 10.0-20.0 Serum Glucose 60 L 74-106 mg/dL Calcium Level 10.7 H 8.7-10.4 mg/dL B-Type Natriuretic Peptide 22.39 0-100 pg/mL CHEST RADIOGRAPH Indication: cp Technique: Single frontal view of the chest was obtained COMPARISON: XY CHEST PORTABLE on DOS: 11/08/24, XY CHEST XRAY 1 VIEW on DOS: 10/17/24, XY CHEST XRAY 1 VIEW on DOS: 09/23/24, XY CHEST XRAY 1 VIEW on DOS: 08/16/24, XY CHEST PORTABLE on DOS: 08/14/24 FINDINGS: Lines and Tubes: None Lungs: Clear Pleura: No effusion. No pneumothorax. Cardiomediastinal contours: Unremarkable Bones: Unremarkable IMPRESSION: 1. No acute disease. SEPSIS Sepsis Screen Date sepsis recognized/suspect: Dec 04, 2024 Time Sepsis recognized/suspect: 2344 Recent Procedure: No On Antibiotic Therapy: No Respiratory Rate >20: No Heart Rate >90: No Temp<36 C (96.8 F) or >38.3 C: No SBP <90 or MAP <65 mmHG: No New Acute Mental Status Change: No Is the patient on CPAP, BIPAP,: No Physician Orders Blood Glucose Assessment (12/04/24 02:19) Saline Lock (12/04/24 02:43) Stat Ekg For Chest Pain (12/04/24 04:48) Admit (12/04/24 08:23) Code Status (12/04/24 08:23) Physical Science Aide (12/04/24 08:23) Cardiac Diet-2gna,Lofat,Lochol (12/04/24 Breakfast) Aspirin Tablet (12/04/24 10:00) Atorvastatin (Lipitor) (12/04/24 22:00) Morphine Sulfate Injection (12/04/24 08:30) Acetaminophen Tablet (Tylenol Tablet) (12/04/24 08:30) Complete Blood Count (12/05/24 04:00) Basic Metabolic Panel (12/05/24 04:00) Magnesium (12/05/24 04:00) Lipid Panel (12/05/24 04:00) Echo 2d Mode Cardiac Dop (12/04/24 08:23) Nitroglycerin Sublingual (Ntrostat Subli (12/04/24 08:30) Electrocardigram (12/05/24 04:00) Troponin-I Hs (12/04/24 08:23) Cardiac Rehabilitation - Outpa (12/04/24 ) Nitroglycerin Sublingual (Ntrostat Subli (12/04/24 08:30) Morphine Sulfate Injection (12/04/24 08:30) Notify Of Changes From Base (12/04/24 08:23) Steward/Stewardess Wine For 24 Hours (12/04/24 08:23) Emergency Dysrhythmia Protocol (12/04/24 08:23) Rhythm Strips Once Every Shift (12/04/24 08:23) Oxygen By Nasal Cannula (12/04/24 08:23) Urinalysis (12/04/24 08:23) Drug Screen (12/04/24 08:23) * Wound Consult (12/04/24 ) Free T4 (Free Thyroxine) (12/04/24 08:23) Thyroid Stimulating Hormone (12/04/24 08:23) Amiodarone Tablet (Cordarone Tablet) (12/04/24 10:00) Apixaban (Eliquis) (12/04/24 10:00) Metoprolol Tartrate Tablet (Lopressor Ta (12/04/24 10:00) (Nf) Qyhixtfk-Jrchptxgefrc-Rnykkpeq (Tri (12/04/24 10:00) (Nf) Aspirin (12/04/24 10:00) (Nf) Atorvastatin Calcium (12/04/24 10:00) (Nf) Fenofibrate (12/04/24 10:00) (Nf) Ferrous Sulfate (Ferosul) (12/04/24 10:00) (Nf) Pregabalin (12/04/24 14:00) * Tail Trimmer Consult (12/04/24 ) Glucose Blood (Accu-Chek Comfort Curve T (12/04/24 11:30) Mild Sliding Scale (12/04/24 11:30) Dextrose 50% Syringe (12/04/24 08:45) Hemoglobin A1c (12/04/24 08:37) Vital Signs Date Time Temp Pulse Resp B/P (MAP) Pulse Ox O2 Delivery O2 Flow Rate FiO2 12/04/24 05:31 55 13 125/55 (78) 98 12/04/24 04:55 52 12/04/24 04:10 97.5 55 16 102/52 (69) 98 97.5 12/04/24 00:46 66 Laboratory Tests Test 12/04/24 00:23 White Blood Count 6.2 10^3/uL (4.4-10.8) Medications Medications Dose Ordered Sig/Uyen Route Start Time Stop Time Status Last Admin Dose Admin Aspirin 324 mg ONCE ONCE PO 12/04/24 05:30 12/04/24 05:31 DC 12/04/24 05:50 324 MG Potassium Chloride 40 meq ONCE ONCE PO 12/04/24 02:30 12/04/24 02:31 DC 12/04/24 03:04 40 MEQ Sodium Chloride 500 ml @ 500 mls/hr Q1H ONCE IV 12/04/24 04:30 12/04/24 05:29 DC 12/04/24 04:37 500 MLS/HR Assessment/Plan Assessment/Plan Assessment Chest pain rule out ACS Left lower extremity bleeding likely due to trauma Autonomic imbalance Hypokalemia Hypertension TOÑA Obesity ?PVD Tobacco use History of AFib on Eliquis History of CHF History of diabetes History of HIV on Triumeq History of CKD 3 History of respiratory failure History of GERD History of cholecystectomy History of hernia repair History of thyroidectomy History of right foot surgery History of bilateral carpal tunnel surgery History of seizures Plan Admit to tele Antiemetics Pain management Aspirin +statin Replete lytes Troponin noted Strict I&Os Daily weight EKG Chest x-ray BNP UA UDS Mag level Lipid Echo ordered Free T4 TSH Wound consult Hemoglobin A1c ISS and Accu-Cheks Bilateral extremity venous ultrasound ordered to rule out DVT Orthostatics Diet Home medications reconciled DVT prophylaxis-patient on Eliquis PUD prophylaxis-PPIs Discussed plan of care with patient nurse Social work-patient from recuperative care Counseled patient on lifestyle modifications, diet, and exercise Counseled patient on cessation of tobacco use [id number] Behavior change smoking greater than 10 minutes about use of other options also gave option of nicotine patch [id number] Preventive counseling healthy eating habits, physical activity, and regular checkups Plan discussed with: Patient My Orders Orders - 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 Procedure Category Date Status Time Admit ADMIT 12/04/24 Transmitted 08:23 Code Status CODE 12/04/24 Transmitted 08:23 Physical Science Aide SANJU 12/04/24 In Process 08:23 Cardiac DIET 12/04/24 Transmitted Diet-2gna,Lofat,Lochol Breakfast Aspirin Tablet PHA 12/04/24 Logged 10:00 Atorvastatin (Lipitor) PHA 12/04/24 Logged 22:00 Morphine Sulfate PHA 12/04/24 Logged Injection 08:30 Acetaminophen Tablet PHA 12/04/24 Logged (Tylenol Tablet) 08:30 Complete Blood Count LAB 12/05/24 Verified 04:00 Basic Metabolic Panel LAB 12/05/24 Verified 04:00 Magnesium LAB 12/05/24 Verified 04:00 Lipid Panel LAB 12/05/24 Verified 04:00 Echo 2d Mode Cardiac US 12/04/24 Logged DOP 08:23 Nitroglycerin PHA 12/04/24 Logged Sublingual (Ntrostat 08:30 Electrocardigram EKG 12/05/24 Logged 04:00 Troponin-I Hs LAB 12/04/24 Logged 08:23 Cardiac [facility] 12/04/24 In Process Rehabilitation - Outpa Nitroglycerin PHA 12/04/24 Logged Sublingual (Ntrostat 08:30 Morphine Sulfate PHA 12/04/24 Logged Injection 08:30 Notify Of Changes [facility] 12/04/24 In Process From Base 08:23 Steward/Stewardess Wine For [facility] 12/04/24 In Process 24 Hours 08:23 Emergency Dysrhythmia [facility] 12/04/24 In Process Protocol 08:23 Rhythm Strips Once [facility] 12/04/24 In Process Every Shift 08:23 Oxygen By Nasal RT 12/04/24 Transmitted Cannula 08:23 Urinalysis LAB 12/04/24 Logged 08:23 Drug Screen LAB 12/04/24 Logged 08:23 * Wound Consult CONS 12/04/24 Transmitted Free T4 (Free LAB 12/04/24 Logged Thyroxine) 08:23 Thyroid Stimulating LAB 12/04/24 Logged Hormone 08:23 Amiodarone Tablet PHA 12/04/24 Logged (Cordarone Tablet) 10:00 Apixaban (Eliquis) PHA 12/04/24 Logged 10:00 Metoprolol Tartrate PHA 12/04/24 Logged Tablet (Lopressor Ta 10:00 (NF) PHA 12/04/24 Logged Gxawsupe-Apeidmvacoqv-Nxhnkstp 10:00 (Nf) Aspirin PHA 12/04/24 Logged 10:00 (Nf) Atorvastatin PHA 12/04/24 Logged Calcium 10:00 (Nf) Fenofibrate PHA 12/04/24 Logged 10:00 (Nf) Ferrous Sulfate PHA 12/04/24 Logged (Ferosul) 10:00 (Nf) Pregabalin PHA 12/04/24 Logged 14:00 * Tail Trimmer CONS 12/04/24 Transmitted Consult Glucose Blood PHA 12/04/24 Transmitted (Accu-Chek Comfort 11:30 Mild Sliding Scale PHA 12/04/24 Transmitted 11:30 Dextrose 50% Syringe PHA 12/04/24 Transmitted 08:45 Hemoglobin A1c LAB 12/04/24 Transmitted 08:37 Date of Service: Dec 04, 2024 Billing Provider: BEAU JOSHI Common Visit Codes: 11332-[id number] INP/OBS CARE (HIGH) Secondary Visit Codes: 78968-[id number] COUNSELING IND, 05501-UWLND CHNG SMOKING >10MIN BEAU JOSHI Dec 04, 2024 08:39
[2024-12-04] MEDS ORDERED: DEXTROSE (50%) 50ML SYRG IV PRN (08:45)
[2024-12-04 09:22] LABS: Urine Protein, UAD TRACE (Negative)
[2024-12-04] MEDS: APIXABAN 5 MG TAB PO SCH (09:30)
[2024-12-04] MEDS: FERROUS SULFATE 325mg EC TAB PO SCH (09:30)
[2024-12-04] MEDS: METOPROLOL TARTRATE 25 MG TAB PO SCH (09:30)
[2024-12-04] MEDS: ONDANSETRON HCL 4 MG/2 ML VIAL IV PRN (09:38)
[2024-12-04] MEDS: MORPHINE SULFATE 4 MG/ML SYR/VIAL IV PRN (09:39)
[2024-12-04 09:42] LABS: Amphetamine Screen, Urine Neg (NEGATIVE); Barbiturate Scree,Urine Neg (NEGATIVE); Benzodiazephine Screen, Urine Neg (NEGATIVE); Cannabinoid Screen, Urine Neg (NEGATIVE); Cocaine Screen, Urine Neg (NEGATIVE); Opiate Scree,Urine Neg (NEGATIVE); Phencyclidine Screen, Urine Neg (NEGATIVE)
--- NOTE | 2024-12-04 09:55 | ECG ---
[facility] Test Date: 2024-12-04 Test Time: 00:01:51 Pat Name: FELICE COLE Department: ED Room: 0290T Gender: F Pole Framer Machine: ANAHY : 1965 Requested By: DESIRAE WAYNE Order Number: [id number] Reading MD: Stephen Gomez Measurements Intervals [place] Rate: 66 P: 49 MN: 162 QRS: 167 QRSD: 107 T: 34 QT: 489 QTc: 513 Interpretive Statements Sinus rhythm Probable left atrial enlargement Left posterior fascicular block Abnormal R-wave progression, late transition Prolonged QT interval Electronically Signed On 12-10-2024 15:33:56 PDT by Stephen Gomez Please click the below link to view image of tracing.
[2024-12-04] MEDS ORDERED: PATIENTS OWN MEDICATION (Aspirin 1 TAB) PO SCH (10:00)
[2024-12-04] MEDS: ABACAVIR DOLUTEGRAVIR LAMIVUDI PO SCH (10:00)
[2024-12-04] MEDS ORDERED: PATIENTS OWN MEDICATION (Atorvastatin Calcium 1 TAB) PO SCH (10:00)
[2024-12-04] MEDS: AMIODARONE HCL 200 MG TAB PO SCH (10:00)
[2024-12-04] MEDS: InsuLIN REG 1unit/0.01ml Soln (100units/ml) SC SCH (11:45)
[2024-12-04] MEDS: ACCU-CHEK COMFORT CURVE STRIP VI SCH (11:51)
[2024-12-04] MEDS ORDERED: PREGABALIN 25 MG CAP PO SCH (14:00)
[2024-12-04] MEDS: PREGABALIN CAPSULE 75 MG CAP PO SCH (14:45)
[2024-12-04] MEDS: PREGABALIN 25 MG CAP PO SCH (14:45)
[2024-12-04] MEDS: PANTOPRAZOLE 40 MG/10 ML VIAL INJ IV SCH (17:41)
--- NOTE | 2024-12-04 17:48 | DVH ---
EXAM: US BILAT LOWER DVT Clinical History: r/o dvt Comparison: None Technique: Duplex Doppler evaluation of the deep venous systems of both lower extremities from the common femora l veins to the popliteal veins including color Doppler and spectral/pulsed waveform analysis was perf ormed. Findings: No visible intraluminal venous thrombus. No evidence of incompressibility or abnormal color or spectr al Doppler flow visualized in the deep bilateral lower extremity veins. Proximal greater saphenous ve ins are grossly unremarkable. 4.8 cm right Monae's cyst. 3.6 cm benign-appearing lymph node in the left groin. Impression: 1. No sonographic evidence of deep venous thrombosis throughout the bilateral lower extremities from the popliteal veins to the common femoral veins.
[2024-12-04] MEDS ORDERED: ATORVASTATIN 20 MG TAB PO SCH (22:00)
[2024-12-05 01:00] VITALS: BP 123/70; PULSE 49; RESP 18; TEMP 97.8; O2SAT 97
[2024-12-05 05:00] VITALS: BP_SYST 101; BP_SYST 111; BP_SYST 118; BP_DIAS 46; BP_DIAS 68; BP_DIAS 73; PULSE 49; PULSE 54; PULSE 56; RESP 18; TEMP 97.6; O2SAT 94; O2SAT 96; O2SAT 98
[2024-12-05 06:18] LABS: Hematocrit 41.2 % (36.0-46.0); Hemoglobin 13.5 g/dL (12.2-16.2); Mean Corpuscular Hemoglobin 25.8 pg (28.0-32.0); Mean Corpuscular Volume 78.7 fL (80.0-100.0); Nucleated Red Blood Cells % 0.2 %
[2024-12-05 06:24] LABS: Anion Gap 6 (5-15); Carbon Dioxide 26 mmol/L (20-31); Potassium 4.4 mmol/L (3.5-5.1); Sodium 140 mmol/L (136-145)
[2024-12-05 06:30] LABS: BUN/Creatinine Ratio 13.7 (10.0-20.0); Blood Urea Nitrogen 19 mg/dL (9-23); Magnesium 2.3 mg/dL (1.6-2.6)
[2024-12-05 06:32] LABS: Cholesterol 155 mg/dL (< 200)
[2024-12-05 06:37] LABS: Calcium 10.6 mg/dL (8.7-10.4); Chloride 108 mmol/L (98-107); Glucose 169 mg/dL (74-106); HDL Cholesterol 38 mg/dL (40-59); Triglycerides 282 mg/dL (< 150)
[2024-12-05 08:00] VITALS: PULSE 50
[2024-12-05 09:00] VITALS: BP 124/60; PULSE 49; RESP 19; TEMP 97.5; O2SAT 92
[2024-12-05 13:00] VITALS: BP 127/74; PULSE 56; RESP 18; TEMP 97; O2SAT 97
[2024-12-05 17:07] VITALS: BP 134/74; PULSE 60; RESP 18; TEMP 98.4; O2SAT 95
--- NOTE | 2024-12-06 15:45 | DVHSR ---
APPROVED REPORT EXAM: Two-dimensional and M-mode echocardiogram with Doppler and color Doppler. Blood Pressure: 125/55 mmHg INDICATION Chest Pain RISK FACTORS Obesity: Height: 5'5", Weight: 209 DIMENSIONS LVDd4.6 (3.8-5.7cm)LA (2D)4.7 (1.9-4.0cm)Aortic Root3.6 (2.0-3.7cm) LVDs3.1 (2.5-4.0cm)LA (MM) (1.9-4.0cm)Aortic Cusp Exc1.9 (1.5-2.0cm) EF (%) 60.0 (55-70%)Rt. Atrium3.9 (1.9-4.0cm)Asc. Aorta cm IVSd1.2 (0.7-1.1cm)RV (D) (1.8-2.4cm) PWd1.2 (0.7-1.1cm) Mitral Valve MitralMitral Stenosis E wave0.78m/sMV Mean GR.mmHg A wave0.97m/sMV Peak GR.mmHg E/A ratio0.82D MVAcm2 DECEL [id number] 1/2 [place] Aortic Valve Aortic ValveAortic Stenosis V11.22m/[place] Mean GR.4mmHg V21.46m/[place] Peak GR.9mmHg LVOT Diameter2.3 (1.8-2.4cm)Doppler AVA3.47cm2 Pulmonic Valve V20.81m/s Other Information Quality : Technically LimitedRhythm : Technically limited study due to body habitus. Conclusion LVEF 55-60%, mild LVH, diastolic dysfunction RV size and function normal Left atrium mildly dilated
--- NOTE | 2024-12-10 15:39 | ECG ---
[facility] Test Date: 2024-12-04 Test Time: 04:55:02 Pat Name: FELICE COLE Department: ED Room: 0290T Gender: F Psych Specialist: andrea : 1965 Requested By: BEAU JOSHI Order Number: [id number] Reading MD: Stephen Gomez Measurements Intervals [place] Rate: 52 P: 51 TN: 163 QRS: 136 QRSD: 101 T: 60 QT: 531 QTc: 494 Interpretive Statements Sinus rhythm Left posterior fascicular block Abnormal R-wave progression, late transition Borderline prolonged QT interval Electronically Signed On 12-10-2024 15:38:59 PDT by Stephen Gomez Please click the below link to view image of tracing.
== END 2024-12-05 17:00 | disposition home or self-care (01) | DRG 198 ==
LOC: ER 23:45 → EDUNIT# 23:45 → OVERFLOW 12-04 08:23 → TELE-WESTW 12-04 15:24
PROVIDERS: ADMIT Hospitalist; ATTEND Hospitalist
DX: I24.9 Acute ischemic heart disease, unspecified (principal); G90.89 Other disorders of autonomic nervous system; N17.9 Acute kidney failure, unspecified; E11.51 Type 2 diabetes mellitus with diabetic peripheral angiopathy without gangrene; E11.22 Type 2 diabetes mellitus with diabetic chronic kidney disease; I48.91 Unspecified atrial fibrillation; E66.9 Obesity, unspecified; E87.6 Hypokalemia; K21.9 Gastro-esophageal reflux disease without esophagitis; I50.9 Heart failure, unspecified; E89.0 Postprocedural hypothyroidism; I13.0 Hypertensive heart and chronic kidney disease with heart failure and stage 1 through stage 4 chronic kidney disease, or unspecified chronic kidney disease; Z68.34 Body mass index [BMI] 34.0-34.9, adult; G56.03 Carpal tunnel syndrome, bilateral upper limbs; F17.210 Nicotine dependence, cigarettes, uncomplicated; R42 Dizziness and giddiness; N18.30 Chronic kidney disease, stage 3 unspecified; Z90.49 Acquired absence of other specified parts of digestive tract; Z88.0 Allergy status to penicillin; Z88.8 Allergy status to other drugs, medicaments and biological substances; Z79.01 Long term (current) use of anticoagulants; Z79.899 Other long term (current) drug therapy; Z79.4 Long term (current) use of insulin; Z79.82 Long term (current) use of aspirin; Z79.02 Long term (current) use of antithrombotics/antiplatelets
CPT/HCPCS: 36415; 71045; 80048; 80061; 80307; 81001; 82962; 83036; 83735; 83880; 84439; 84443; 84484; 85025; 87081; 93005; 93306; 93970; 96374; 96375; G0378; J1815; J2405; J2470

== ENCOUNTER 2024-12-21 20:50 | Emergency (ER) | payer MEDICAID ==
[~2024-12-21] VITALS: Ht 170.2 cm; Wt 90.7 kg
[2024-12-21 21:03] VITALS: BP 131/63; PULSE 65; RESP 17; TEMP 97.6; O2SAT 98
--- NOTE | 2024-12-21 23:26 | DVH ---
COMPUTERIZED TOMOGRAPHY OF THE HEAD WITHOUT CONTRAST REASON FOR STUDY: Left-sided trauma COMPARISON: CT HEAD WITHOUT CONTRAST on DOS: 09/23/24, CT HEAD WITHOUT CONTRAST on DOS: 06/06/24, CT HEA D WITHOUT CONTRAST on DOS: 08/21/23, US CAROTID DUPLX W COLOR DOP on DOS: 08/14/23 TECHNIQUE: Helical tomographic scans were obtained through the brain. 2-D coronal and sagittal refor matted images are provided. Radiation optimization: All CT scans at this facility use at least one of these dose optimization techniques: Automated exposure control mA and/or kV adjustment per patient s ize (includes targeted exams where dose is matched to clinical indication) or iterative reconstructio n. RADIATION DOSE: CTDI: 54.74 mGy DLP: 877.58 mGy-cm FINDINGS: No suspicious intracranial hyperdensity to suggest acute blood. There is no mass effect n or midline shift. There is no hydrocephalus. The suprasellar cistern is intact. The calvarium is inta ct. The visualized paranasal sinuses are clear. There is trace fluid in the right mastoid. The left mastoid is clear. IMPRESSION: No acute intracranial abnormality. Trace fluid in the right mastoid. Correlate clinically for acute mastoiditis.
--- NOTE | 2024-12-22 00:23 | ED.PDOC ---
History of Present Illness HPI Comments Patient is a morbidly obese 59-year-old female who arrives to the ED today via EMS for evaluation of left-sided head pain and blurred vision status post head trauma three days ago. Patient states at that time she fell off her bed and landed on the left side of her head. Patient denies any loss of consciousness or blood loss. Patient states that subsequent to that time, she has a fullness feeling in her head as well as some blurred vision. Patient denies any fever nausea or vomiting. Vital signs were stable at arrival. Chief Complaint: Headache Time Seen by MD: 22:49 Primary Care Provider: unknown Reviewed Notes: Nurses Notes Allergies: Coded Allergies: Loperamide (Verified Allergy, Severe, 08/13/23) Nystatin (Verified Allergy, Severe, 08/13/23) Penicillins (Verified Allergy, Severe, 08/13/23) Diphenhydramine (Verified Allergy, Unknown, 09/23/24) Home Meds Active Scripts Insulin Glargine (Lantus) 100 Unit/Ml Inj, 15 UNITS SC BID@0700,2200 for 30 Days, #90 INJ 1 Refill Prov:BETHANY JEFF DO 11/17/24 Reported Medications Amiodarone HCl (Amiodarone HCl) 200 Mg Tab, 1 TAB PO BID for 90 Days, #180 08/18/24 Insulin Glargine (Basaglar Kwikpen) 100 Unit/Ml Inj, 100 UNITS SC BID for 30 Days, #60 08/18/24 Insulin Lispro (Insulin Lispro Kwikpen) 100 Unit/Ml Inj, 10 UNITS SC DAILY for 100 Days, #15 08/18/24 Cetirizine HCl (Cetirizine Hydrochloride) 10 Mg Tab, 1 TAB PO DAILY for 90 Days, #90 08/18/24 Dapagliflozin Propanediol (Dapagliflozin Propanediol) 5 Mg Tab, 1 TAB PO DAILY for 100 Days, #100 08/18/24 Ferrous Sulfate (Ferosul) 325 Mg Tab, 1 TAB PO DAILY for anemia 06/08/24 Ebpkaaid-Loregqmjfdtc-Atnvwdvk (Triumeq 600-50-300 mg) 1 Tab Tab, 1 TAB PO DAILY for 30 Days, #30 06/08/24 Sitagliptin Phosphate (Januvia) 100 Mg Tab, 1 DAILY for 90 Days, #90 06/08/24 Metoprolol Tartrate (Metoprolol Tartrate) 25 Mg Tab, 25 MG PO DAILY for 90 Days, #90 06/06/24 Fenofibrate (FENOFIBRATE) 145 Mg Tab, 1 TAB PO DAILY for 90 Days, #90 06/06/24 Potassium Chloride (POTASSIUM CHLORIDE CR) 10 Meq Tb, 1 TAB PO DAILY for 30 Days, #30 06/06/24 Cyclobenzaprine HCl (Cyclobenzaprine Hydrochlo) 10 Mg Tab, 1 TAB PO BID PRN for PAIN FOR MUSCLE SPASMS for 30 Days, #15 08/13/23 Famotidine (Famotidine) 20 Mg Tab, 1 TAB PO BID PRN for ACID REFLUX AND ABDOMINAL PAIN for 90 Days, #180 08/13/23 Furosemide (Furosemide) 40 Mg Tab, 1 TAB PO DAILY for 90 Days, #90 08/13/23 Hydrocodone-Acetaminophen (Hydrocodone/Acetaminophen 5-325 mg) 1 Tab Tab, 2 TAB PO BID 08/13/23 Pregabalin (Pregabalin) 200 Mg Cap, 1 CAP PO TID for 30 Days, #90 08/13/23 Lisinopril (Lisinopril) 2.5 Mg Tab, 1 TAB PO DAILY for 90 Days, #90 08/13/23 Apixaban Base (ELIQUIS) 5 Mg Tab, 1 TAB PO BID for 45 Days, #90 08/13/23 Aspirin (Aspirin) 81 Mg Chw, 1 TAB PO DAILY for 90 Days, #90 08/13/23 Atorvastatin Calcium (ATORVASTATIN CALCIUM) 40 Mg Tab, 1 TAB PO DAILY for 90 Days, #90 08/13/23 Information Source: Patient Mode of Arrival: EMS Severity: Moderate Timing: Days Duration: Since onset Prehospital treatment: Pain Meds Past Medical History PAST MEDICAL HISTORY: CHF, CKF, DM, HIV, HTN, Seizures Surgical History: Cholecystectomy, Hernia Repair, Thyroidectomy 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 History Family History Family History: Reviewed,noncontributory to illness, Unknown Social History Smoker: Cigarettes Alcohol: Denies ETOH Use Drugs: Denies Drug Use Lives In: Home Constitutional: denies: chills, diaphoresis, fatigue, fever, malaise, sweats, weakness, others EENTM: reports: others (Left-sided head pain with blurred vision); denies: blurred vision, double vision, ear bleeding, ear discharge, ear drainage, ear pain, ear ringing, eye pain, eye redness, hearing loss, mouth pain, mouth swelling, nasal discharge, nose bleeding, nose congestion, nose pain, photophobia, tearing, throat pain, throat swelling, voice changes Respiratory: denies: cough, hemoptysis, orthopnea, SOB at rest, shortness of breath, SOB with excertion, stridor, wheezing, others Cardiovascular: denies: chest pain, dizzy spells, diaphoresis, Dyspnea on exertion, edema, irregular heart beat, left arm pain, lightheadedness, palpitations, PND, syncope, others Gastrointestinal: denies: abdomen distended, abdominal pain, blood streaked bowels, constipated, diarrhea, dysphagia, difficulty swallowing, hematemesis, melena, nausea, poor appetite, poor fluid intake, rectal bleeding, rectal pain, vomiting, others Genitourinary: denies: abnormal vagina bleeding, burning, dyspareunia, dysuria, flank pain, frequency, hematuria, incontinence, pain, , vagina discharge, urgency, others Neurological: denies: dizziness, fainting, headache, left sided numbness, left sided weakness, numbness, paresthesia, pre-existing deficit, right sided numbness, right sided weakness, seizure, speech problems, tingling, tremors, weakness, others Musculoskeletal: denies: back pain, gout, joint pain, joint swelling, muscle pain, muscle stiffness, neck pain, others Integumetry: denies: bruises, change in color, change in hair/nails, dryness, laceration, lesions, lumps, rash, wounds, others Allergic/Immunocompromised: denies: Difficulty Healing, Frequent Infections, Hives, Itching, others Hematologic/Lymphatic: denies: anemia, blood clots, easy bleeding, easy bruising, swollen glands, others Endocrine: denies: excessive hunger, excessive sweating, excessive thirst, excessive urination, flushing, intolerance to cold, intolerance to heat, unexplained weight gain, unexplained weight loss, others Psychiatric: denies: anxiety, bipolar disorder, depression, hopeless, panic disorder, schizophrenia, sleepless, suicidal, others Physical Exam General Appearance: Moderate Distress (Npxj-yr-mzvzejkq distress pain and vision concerns.), Obese HEENT: Head (Diffuse left-sided tenderness to palpation. No skull depressions or deformity. No signs of trauma.), Normal ENT Inspection, Pharynx Normal, TMs Normal, Other (Unremarkable evaluation of bilateral globes. Unable to appreciate any trauma or unusual anatomy.) Neck: Full Range of Motion, Non-Tender, Normal, Normal Inspection Respiratory: Chest Non-Tender, Lungs Clear, No Accessory Muscle Use, No Respiratory Distress, Normal Breath Sounds Cardiovascular: No Edema, No JVD, No Murmur, No Gallop, Normal Peripheral Pulses, Regular Rate/Rhythm Breast Exam: Deferred Gastrointestinal: No Organomegaly, Non Tender, No Pulsatile Mass, Normal Bowel Sounds, Soft Genitalia: Deferred Pelvic: Deferred Rectal: Deferred Extremities: Normal capillary refill, No pedal edema Neurologic: Alert Cerebellar Function: NOT DONE Reflexes: NOT DONE Skin: Dry, Normal Color, Warm Lymphatic: No Adenopathy Was a procedure done? Was a procedure done?: No Differential Dx Considerations may include: Subarachnoid hemorrhage, subdural hematoma, skull fracture, blurred vision X-Ray, Labs, Meds, VS Vital Signs Date Time Temp Pulse Resp B/P (MAP) Pulse Ox O2 Delivery O2 Flow Rate FiO2 12/21/24 21:03 97.6 65 17 131/63 98 97.6 X-Ray, Labs, Meds, VS Comment All studies performed the ED were evaluated by me personally. CT studies of the head was unremarkable for any acute intracranial concerns. Advised patient to findings and additionally, advised patient follow up with primary care provider and senior systems administrator for evaluation of blurred vision concerns. Time of 1ST Reevaluation: 00:21 Reevaluation 1ST: Improved Consultation: PCP Patient Education/Counseling: Diagnosis, Treatment Family Education/Counseling: Diagnosis, Treatment SEPSIS Sepsis Screen Date sepsis recognized/suspect: Dec 21, 2024 Time Sepsis recognized/suspect: 2104 Recent Procedure: No On Antibiotic Therapy: No Respiratory Rate >20: No Heart Rate >90: No Temp<36 C (96.8 F) or >38.3 C: No SBP <90 or MAP <65 mmHG: No New Acute Mental Status Change: No Is the patient on CPAP, BIPAP,: No Physician Orders Head Without Contrast (12/21/24 22:52) Vital Signs Date Time Temp Pulse Resp B/P (MAP) Pulse Ox O2 Delivery O2 Flow Rate FiO2 12/21/24 21:03 97.6 65 17 131/63 98 97.6 Departure 1 Departure Time of Disposition: 00:25 Impression: Primary Impression: Head trauma Additional Impression: Headache Disposition: HOME / SELF CARE / HOMELESS Condition: Stable Additional Instructions: Advised patient utilize Tylenol and or Motrin as needed for pain relief. If symptoms continue, patient will need to follow up with the primary care provider for continued evaluation and management. Discharged With: Self, Friend Critical Care Note Critical Care Time?: No Stability Stability form required: No Heart Score Heart Score: Heart Score Response (Comments) Value History N/A 0 EKG N/A 0 Age N/A 0 Risk Factors N/A 0 Troponin N/A 0 Total 0 NATALEE DAN PAC Dec 22, 2024 00:23
[2024-12-22] MEDS: HYDROcodone-ACET 10/325MG TAB PO ONE (01:59)
== END 2024-12-22 02:00 | disposition home or self-care (01) ==
LOC: EDBD 20:50 → ER 20:50
DX: S09.90XA Unspecified injury of head, initial encounter (principal); R51.9 Headache, unspecified; Z98.890 Other specified postprocedural states; E11.9 Type 2 diabetes mellitus without complications; F17.210 Nicotine dependence, cigarettes, uncomplicated; I11.0 Hypertensive heart disease with heart failure; I50.9 Heart failure, unspecified; Z88.1 Allergy status to other antibiotic agents; Z88.0 Allergy status to penicillin; Z79.899 Other long term (current) drug therapy; Z90.49 Acquired absence of other specified parts of digestive tract; Z90.89 Acquired absence of other organs; W06.XXXA Fall from bed, initial encounter; Y93.89 Activity, other specified; Y92.89 Other specified places as the place of occurrence of the external cause; Y99.8 Other external cause status
CPT/HCPCS: 70450

== ENCOUNTER 2024-12-28 12:59 | Inpatient (IN) | payer MEDICAID ==
[~2024-12-28] VITALS: Ht 162.6 cm; Wt 96.2 kg
--- NOTE | 2024-12-28 13:34 | ECG ---
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
[2024-12-28 14:21] VITALS: PULSE 51; RESP 17; O2SAT 97
--- NOTE | 2024-12-28 16:52 | ED.PDOC ---
History of Present Illness HPI Comments 59-year-old female brought by paramedics because of syncope witnessed by family member. He went to the bathroom this morning when he passed out later again an hour later he passed out nares bed. Two syncopal episodes prior to coming to the ER. His heart rate was 52 on arrival blood sugar 119. Does have a history of CVA atrial fibrillation seizure. Denies any other symptoms. Chief Complaint: General Weakness Time Seen by MD: 13:26 Primary Care Provider: unknown Reviewed Notes: Nurses Notes, Medications, Allergies Allergies: Coded Allergies: Loperamide (Verified Allergy, Severe, 08/13/23) Nystatin (Verified Allergy, Severe, 08/13/23) Penicillins (Verified Allergy, Severe, 08/13/23) Diphenhydramine (Verified Allergy, Unknown, 09/23/24) Home Meds Active Scripts Insulin Glargine (Lantus) 100 Unit/Ml Inj, 15 UNITS SC BID@0700,2200 for 30 Days, #90 INJ 1 Refill Prov:BETHANY JEFF DO 11/17/24 Reported Medications Amiodarone HCl (Amiodarone HCl) 200 Mg Tab, 1 TAB PO BID for 90 Days, #180 08/18/24 Insulin Glargine (Basaglar Kwikpen) 100 Unit/Ml Inj, 100 UNITS SC BID for 30 Days, #60 08/18/24 Insulin Lispro (Insulin Lispro Kwikpen) 100 Unit/Ml Inj, 10 UNITS SC DAILY for 100 Days, #15 08/18/24 Cetirizine HCl (Cetirizine Hydrochloride) 10 Mg Tab, 1 TAB PO DAILY for 90 Days, #90 08/18/24 Dapagliflozin Propanediol (Dapagliflozin Propanediol) 5 Mg Tab, 1 TAB PO DAILY for 100 Days, #100 08/18/24 Ferrous Sulfate (Ferosul) 325 Mg Tab, 1 TAB PO DAILY for anemia 06/08/24 Fplhethq-Xuhjwemtayif-Fjvdvofg (Triumeq 600-50-300 mg) 1 Tab Tab, 1 TAB PO DAILY for 30 Days, #30 06/08/24 Sitagliptin Phosphate (Januvia) 100 Mg Tab, 1 DAILY for 90 Days, #90 06/08/24 Metoprolol Tartrate (Metoprolol Tartrate) 25 Mg Tab, 25 MG PO DAILY for 90 Days, #90 06/06/24 Fenofibrate (FENOFIBRATE) 145 Mg Tab, 1 TAB PO DAILY for 90 Days, #90 06/06/24 Potassium Chloride (POTASSIUM CHLORIDE CR) 10 Meq Tb, 1 TAB PO DAILY for 30 Days, #30 06/06/24 Cyclobenzaprine HCl (Cyclobenzaprine Hydrochlo) 10 Mg Tab, 1 TAB PO BID PRN for PAIN FOR MUSCLE SPASMS for 30 Days, #15 08/13/23 Famotidine (Famotidine) 20 Mg Tab, 1 TAB PO BID PRN for ACID REFLUX AND ABDOMINAL PAIN for 90 Days, #180 08/13/23 Furosemide (Furosemide) 40 Mg Tab, 1 TAB PO DAILY for 90 Days, #90 08/13/23 Hydrocodone-Acetaminophen (Hydrocodone/Acetaminophen 5-325 mg) 1 Tab Tab, 2 TAB PO BID 08/13/23 Pregabalin (Pregabalin) 200 Mg Cap, 1 CAP PO TID for 30 Days, #90 08/13/23 Lisinopril (Lisinopril) 2.5 Mg Tab, 1 TAB PO DAILY for 90 Days, #90 08/13/23 Apixaban Base (ELIQUIS) 5 Mg Tab, 1 TAB PO BID for 45 Days, #90 08/13/23 Aspirin (Aspirin) 81 Mg Chw, 1 TAB PO DAILY for 90 Days, #90 08/13/23 Atorvastatin Calcium (ATORVASTATIN CALCIUM) 40 Mg Tab, 1 TAB PO DAILY for 90 Days, #90 08/13/23 Information Source: Patient, Emergency Med Personnel Mode of Arrival: EMS Severity: Moderate Timing: Hours Duration: Since onset Past Medical History PAST MEDICAL HISTORY: AFIB, CHF, CKF, DM, HIV, HTN, Seizures Surgical History: Cholecystectomy, Hernia Repair, Thyroidectomy 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 History Family History Family History: Reviewed,noncontributory to illness, Unknown Social History Smoker: Cigarettes Alcohol: Denies ETOH Use Drugs: Denies Drug Use Lives In: Home Constitutional: denies: chills, diaphoresis, fatigue, fever, malaise, sweats, weakness, others Respiratory: denies: cough, hemoptysis, orthopnea, SOB at rest, shortness of breath, SOB with excertion, stridor, wheezing, others Cardiovascular: reports: syncope; denies: chest pain, dizzy spells, diaphoresis, Dyspnea on exertion, edema, irregular heart beat, left arm pain, lightheadedness, palpitations, PND, others Gastrointestinal: denies: abdomen distended, abdominal pain, blood streaked bowels, constipated, diarrhea, dysphagia, difficulty swallowing, hematemesis, melena, nausea, poor appetite, poor fluid intake, rectal bleeding, rectal pain, vomiting, others Genitourinary: denies: abnormal vagina bleeding, burning, dyspareunia, dysuria, flank pain, frequency, hematuria, incontinence, pain, , vagina discharge, urgency, others Neurological: denies: dizziness, fainting, headache, left sided numbness, left sided weakness, numbness, paresthesia, pre-existing deficit, right sided numbness, right sided weakness, seizure, speech problems, tingling, tremors, weakness, others Musculoskeletal: denies: back pain, gout, joint pain, joint swelling, muscle pain, muscle stiffness, neck pain, others Integumetry: denies: bruises, change in color, change in hair/nails, dryness, laceration, lesions, lumps, rash, wounds, others Allergic/Immunocompromised: denies: Difficulty Healing, Frequent Infections, Hives, Itching, others Hematologic/Lymphatic: denies: anemia, blood clots, easy bleeding, easy bruising, swollen glands, others Endocrine: denies: excessive hunger, excessive sweating, excessive thirst, excessive urination, flushing, intolerance to cold, intolerance to heat, unexplained weight gain, unexplained weight loss, others Psychiatric: denies: anxiety, bipolar disorder, depression, hopeless, panic disorder, schizophrenia, sleepless, suicidal, others Physical Exam General Appearance: Moderate Distress HEENT: Normal ENT Inspection, Pharynx Normal, TMs Normal Neck: Full Range of Motion, Non-Tender, Normal, Normal Inspection Respiratory: Chest Non-Tender, Lungs Clear, No Accessory Muscle Use, No Respiratory Distress, Normal Breath Sounds Cardiovascular: Bradycardia, No Edema, No JVD, No Murmur, No Gallop, Normal Peripheral Pulses Breast Exam: Deferred Gastrointestinal: No Organomegaly, Non Tender, No Pulsatile Mass, Normal Bowel Sounds, Soft Genitalia: Deferred Pelvic: Deferred Rectal: Deferred Extremities: No calf tenderness, Normal capillary refill, No pedal edema Musculoskeletal : Apperance: Normal Neurologic: Alert, stiff leg operator II-XII nml as Tested, No Motor Deficits, Normal Affect, Normal Mood, No Sensory Deficits Cerebellar Function: NOT DONE Reflexes: NOT DONE Skin: Dry, Normal Color, Warm Peripheral Pulses: 3+ Radial (R), 3+ Radial (L) Lymphatic: No Adenopathy Was a procedure done? Was a procedure done?: No Differential Dx Considerations may include: Syncope Electrolyte imbalance X-Ray, Labs, Meds, VS Vital Signs Date Time Temp Pulse Resp B/P (MAP) Pulse Ox O2 Delivery O2 Flow Rate FiO2 12/28/24 14:26 97 Room Air* 0 21 12/28/24 14:21 51 17 97 Room Air* 0 21 12/28/24 14:00 98.1 51 14 106/45 (65) 97 98.1 12/28/24 13:30 52 12/28/24 13:10 98.0 56 24 75/48 98 98.0 Lab Test 12/28/24 17:48 12/28/24 16:53 12/28/24 14:17 Range/Units Troponin I High Sensitivity Pending 3 L </=34 ng/L White Blood Count 8.9 4.4-10.8 10^3/uL Red Blood Count 5.12 4.0-5.20 10^6/uL Hemoglobin 13.9 12.2-16.2 g/dL Hematocrit 42.0 36.0-46.0 % Mean Corpuscular Volume 82.1 80.0-100.0 fL Mean Corpuscular Hemoglobin 27.2 L 28.0-32.0 pg Mean Corpuscular Hemoglobin Concent 33.1 32.0-36.0 g/dL Red Cell Distribution Width 24.4 H 11.8-14.3 % Platelet Count 138 L 140-450 10^3/uL Mean Platelet Volume 9.1 6.9-10.8 fL Neutrophils (%) (Auto) 75.1 37.0-80.0 % Lymphocytes (%) (Auto) 13.3 10.0-50.0 % Monocytes (%) (Auto) 9.3 0.0-12.0 % Eosinophils (%) (Auto) 1.6 0.0-7.0 % Basophils (%) (Auto) 0.7 0.0-2.0 % Neutrophils # (Auto) 6.7 1.6-8.6 10 ^3/uL Lymphocytes # (Auto) 1.2 0.4-5.4 10 ^3/uL Monocytes # (Auto) 0.8 0-1.3 10 ^3/uL Eosinophils # (Auto) 0.1 0-0.8 10 ^3/uL Basophils # (Auto) 0.1 0-0.2 10 ^3/uL Nucleated Red Blood Cells 0.0 % Sodium Level 146 H 136-145 mmol/L Potassium Level 4.1 3.5-5.1 mmol/L Chloride Level 110 H 98-107 mmol/L Carbon Dioxide Level 29 20-31 mmol/L Anion Gap 7 5-15 Blood Urea Nitrogen 23 9-23 mg/dL Creatinine 1.63 H 0.550-1.02 mg/dL Glomerular Filtration Rate Calc 36 >90 mL/min BUN/Creatinine Ratio 14.1 10.0-20.0 Serum Glucose 135 H 74-106 mg/dL Calcium Level 9.2 8.7-10.4 mg/dL POC Glucose 114 H 70-106 mg/dl Current Medications Medications (Trade) Dose Ordered Sig/Uyen Route Start Time Stop Time Status Last Admin Sodium Chloride 1,000 ml @ 1,000 mls/hr Q1H ONCE IV 12/28/24 17:00 12/28/24 17:59 12/28/24 17:27 Sodium Chloride 1,000 ml @ 150 mls/hr Q6H40M ONCE IV 12/28/24 17:00 12/28/24 23:39 12/28/24 17:27 Patient alert. Syncopal episode. Answering questions. Saturation pristine on room air. Blood pressure on the low side. Establish intravenous access. Was given fluids. EKG reviewed does show bradycardia. Possible urosepsis. Dunn catheter. Explained to the patient. Continue monitoring. Time of 1ST Reevaluation: 16:50 Reevaluation 1ST: Unchanged Patient Education/Counseling: Diagnosis, Treatment, Prognosis Family Education/Counseling: No Family Present SEPSIS Sepsis Screen Date sepsis recognized/suspect: Dec 28, 2024 Time Sepsis recognized/suspect: 1424 Recent Procedure: No On Antibiotic Therapy: No Respiratory Rate >20: No Heart Rate >90: No Temp<36 C (96.8 F) or >38.3 C: No SBP <90 or MAP <65 mmHG: No New Acute Mental Status Change: No Is the patient on CPAP, BIPAP,: No Physician Orders Chest Portable (12/28/24 16:47) Urinalysis (12/28/24 16:47) Sodium Chloride 0.9% (12/28/24 17:00) Sodium Chloride 0.9% (12/28/24 17:00) Troponin-I Hs (12/28/24 17:47) Troponin-I Hs (12/28/24 19:47) Head Without Contrast (12/28/24 16:52) Vital Signs Date Time Temp Pulse Resp B/P (MAP) Pulse Ox O2 Delivery O2 Flow Rate FiO2 12/28/24 14:26 97 Room Air* 0 21 12/28/24 14:21 51 17 97 Room Air* 0 21 12/28/24 14:00 98.1 51 14 106/45 (65) 97 98.1 12/28/24 13:30 52 12/28/24 13:10 98.0 56 24 75/48 98 98.0 Laboratory Tests Test 12/28/24 16:53 White Blood Count 8.9 10^3/uL (4.4-10.8) Medications Medications Dose Ordered Sig/Uyen Route Start Time Stop Time Status Last Admin Dose Admin Sodium Chloride 1,000 ml @ 150 mls/hr Q6H40M ONCE IV 12/28/24 17:00 12/28/24 23:39 12/28/24 17:27 Sodium Chloride 1,000 ml @ 1,000 mls/hr Q1H ONCE IV 12/28/24 17:00 12/28/24 17:59 12/28/24 17:27 Departure 1 Departure Time of Disposition: 16:51 Impression: Primary Impression: Symptomatic bradycardia Additional Impressions: Syncope Qualified Codes: R55 - Syncope and collapse Hypotension Qualified Codes: I95.9 - Hypotension, unspecified Disposition: 09 ADMITTED INPATIENT Admit to: Med Surg Condition: Guarded Critical Care Note Critical Care Time?: Yes (90 min-critical care time only) Stability Stability form required: No Heart Score Heart Score: Heart Score Response (Comments) Value History Slightly Suspicious 0 EKG Normal 0 Age 45-64 1 Risk Factors >3 or Hx ASHD 2 Troponin Normal limit 0 Total 3 BLAIR KOCH MD Dec 28, 2024 16:52
[2024-12-28 17:17] LABS: Potassium 4.1 mmol/L (3.5-5.1)
[2024-12-28 17:18] LABS: Anion Gap 7 (5-15); Calcium 9.2 mg/dL (8.7-10.4); Carbon Dioxide 29 mmol/L (20-31)
[2024-12-28 17:20] LABS: Chloride 110 mmol/L (98-107); Sodium 146 mmol/L (136-145)
[2024-12-28 17:23] LABS: BUN/Creatinine Ratio 14.1 (10.0-20.0); Blood Urea Nitrogen 23 mg/dL (9-23); Glucose 135 mg/dL (74-106)
[2024-12-28 17:25] LABS: Hematocrit 42.0 % (36.0-46.0); Hemoglobin 13.9 g/dL (12.2-16.2); Mean Corpuscular Hemoglobin 27.2 pg (28.0-32.0); Mean Corpuscular Volume 82.1 fL (80.0-100.0); Nucleated Red Blood Cells % 0.0 %
--- NOTE | 2024-12-28 17:25 | DVH ---
EXAM: CT HEAD WITHOUT CONTRAST INDICATION: syncope TECHNIQUE: CT of the head without intravenous contrast. Radiation Dose Information: CT Dose: CTDI volume is 62.96 mGy. Dose-length product is 1114.34 mGy*cm The dose indicators for CT are the volume Computed Tomography (CT) Dose Index (CTDIvol) and the Dose Length Product (DLP), and are measured in units of mGy and mGy-cm, respectively. These indicators are not patient dose, but values generated from the CT scanner acquisition factors. The report includes radiation exposure data for exposures received during this examination. COMPARISON: CT HEAD WITHOUT CONTRAST on DOS: 12/21/24, CT HEAD WITHOUT CONTRAST on DOS: 09/23/24, CT HEAD WITHOUT CONTRAST on DOS: 06/06/24 FINDINGS: There is no evidence of acute intracranial hemorrhage, extra-axial collection, mass effect, midline s hift, herniation or hydrocephalus. The ventricles, sulci and cisterns are age appropriate. The jackson-white differentiation is intact. Patchy periventricular and subcortical white matter hypoattenuation is nonspecific but may be related to small vessel ischemic disease. The visualized paranasal sinuses and mastoid air cells are clear. The surrounding soft tissues and osseous structures are unremarkable. IMPRESSION: 1. No acute intracranial abnormality.
[2024-12-28] MEDS: SODIUM CHLORIDE 0.9% 1,000 ML IV ONE ×2 (17:27)
--- NOTE | 2024-12-28 17:27 | DVH ---
CHEST RADIOGRAPH Indication: sob Technique: Single frontal view of the chest was obtained Comparison: XY CHEST XRAY 1 VIEW on DOS: 12/04/24, XY CHEST PORTABLE on DOS: 11/08/24, XY CHEST XRAY 1 VIEW on DOS: 10/17/24 FINDINGS: Lines and Tubes: None Lungs: Breast tissue versus airspace disease right lower lung field. Pleura: No effusion. No pneumothorax. Cardiomediastinal contours: Unremarkable Bones: No acute osseous abnormality. IMPRESSION: 1. Breast tissue density versus right lower lung airspace disease.
[2024-12-28] MEDS ORDERED: MORPHINE SULFATE INJ 2 MG/ml SYRG IV PRN (20:00)
[2024-12-28] MEDS ORDERED: DEXTROSE (50%) 50ML SYRG IV PRN (20:00)
[2024-12-28] MEDS ORDERED: ONDANSETRON HCL 4 MG/2 ML VIAL IV PRN (20:00)
[2024-12-28] MEDS ORDERED: NITROGLYCERIN 0.4 MG SL TAB SL PRN (20:00)
[2024-12-28] MEDS ORDERED: ACETAMINOPHEN 325 MG TAB PO PRN (20:00)
[2024-12-28 20:36] LABS: Urine Protein, UAD Negative (Negative)
[2024-12-28] MEDS: LISINOPRIL 5 MG TAB PO ONE (20:53)
[2024-12-28] MEDS: ACCU-CHEK COMFORT CURVE STRIP VI SCH (22:00)
[2024-12-28 23:39] VITALS: BP 125/75; PULSE 50; PULSE 52; RESP 18; RESP 19; TEMP 98.2; O2SAT 96
[2024-12-28] MEDS: APIXABAN 5 MG TAB PO SCH (23:55)
[2024-12-28] MEDS: ATORVASTATIN 20 MG TAB PO SCH (23:55)
[2024-12-29] VITALS (8 sets, daily range): BP systolic 106–140; BP diastolic 61–79; PULSE 19–64; RESP 17–19; TEMP 97.4–98.6; O2SAT 92–98
[2024-12-29] MEDS: InsuLIN REG 1unit/0.01ml Soln (100units/ml) SC SCH (00:13)
--- NOTE | 2024-12-29 04:28 | DVHHP2 ---
History of Present Illness Reason for Visit: Generalized weakness History of Present Illness 59-year-old female presents for evaluation of generalized weakness. Patient reports feeling fatigued with dizziness and having a near syncopal episode. On assessment patient was noted to be bradycardic with blood pressure in the 70s. Patient denies chest pain, palpitations or shortness for breath. Past Medical History Chronic kidney disease, diabetes mellitus, HIV, hypertension, atrial fibrillation, CHF Past Surgical History Hernia repair, thyroidectomy, cholecystectomy Family History Noncontributory Smoke: <1 pack per day ALCOHOL: none Drugs: None Review of Systems Review of Systems Review of systems are currently negative otherwise addressed in HPI. Allergies: Coded Allergies: Loperamide (Verified Allergy, Severe, 08/13/23) Nystatin (Verified Allergy, Severe, 08/13/23) Penicillins (Verified Allergy, Severe, 08/13/23) Diphenhydramine (Verified Allergy, Unknown, 09/23/24) Medications Current Medications Medications Dose Ordered Sig/Uyen Route Start Time Stop Time Status Last Admin Dose Admin Lisinopril 5 mg DAILY PO 12/29/24 10:00 Furosemide 40 mg DAILY PO 12/29/24 10:00 Apixaban 5 mg BID PO 12/28/24 22:00 12/28/24 23:55 5 MG Atorvastatin Calcium 40 mg HS PO 12/28/24 22:00 12/28/24 23:55 40 MG Patient Own Medication 1 tab DAILY PO 12/29/24 10:00 UNV Diagnostic Test (Pha) 1 strip ACHS 12/28/24 22:00 12/28/24 22:00 1 STRIP Insulin Human Regular ACHS SC 12/28/24 22:00 12/29/24 00:13 3 UNITS Dextrose 50 ml UD PRN IV 12/28/24 20:00 Ondansetron HCl 4 mg Q4HP PRN IV 12/28/24 20:00 Acetaminophen 650 mg Q6HP PRN PO 12/28/24 20:00 Nitroglycerin 0.4 mg Q5MINP PRN SL 12/28/24 20:00 Morphine Sulfate 2 mg Q30M PRN IV 12/28/24 20:00 Exam Vital Signs Vital Signs Date Time Temp Pulse Resp B/P (MAP) Pulse Ox O2 Delivery O2 Flow Rate FiO2 12/29/24 01:00 98.4 49 18 117/79 (92) 98 98.4 12/28/24 23:39 Room Air* 0 21 Exam Gen: 59-year-old female in mild distress. Skin: Warm, dry, normal color and texture, no rash. HEENT: Normocephalic atraumatic, mucous membranes moist and pink. Neck: Cervical and supraclavicular nodes normal without enlargement, trachea is midline, thyroid gland is normal without masses. Pulmonary: Clear to auscultation and percussion bilaterally. Cardiac: Regular rate and rhythm. No murmur Abdomen: Soft, nontender, nondistended, bowel sounds present all 4 quadrants, no guarding, no rigidity, no organomegaly. Extremities: No cyanosis, clubbing, no edema Neuro: Cranial nerves II through XII grossly intact, normal affect and speech, no focal motor deficits. Labs/Xrays ORDERING PHYSICIAN: BLAIR KOCH MD PROCEDURE(s): CXRP - CHEST PORTABLE REASON: sob ORDER NUMBER(s): [id number], ACCESSION NUMBER(s): [id number] CHEST RADIOGRAPH Indication: sob Technique: Single frontal view of the chest was obtained Comparison: XY CHEST XRAY 1 VIEW on DOS: 12/04/24, XY CHEST PORTABLE on DOS: 11/08/24, XY CHEST XRAY 1 VIEW on DOS: 10/17/24 FINDINGS: Lines and Tubes: None Lungs: Breast tissue versus airspace disease right lower lung field. Pleura: No effusion. No pneumothorax. Cardiomediastinal contours: Unremarkable Bones: No acute osseous abnormality. IMPRESSION: 1. Breast tissue density versus right lower lung airspace disease. RING PHYSICIAN: BLAIR KOCH MD PROCEDURE(s): HWOCT - HEAD WITHOUT CONTRAST REASON: syncope ORDER NUMBER(s): [id number], ACCESSION NUMBER(s): [id number] EXAM: CT HEAD WITHOUT CONTRAST INDICATION: syncope TECHNIQUE: CT of the head without intravenous contrast. Radiation Dose Information: CT Dose: CTDI volume is 62.96 mGy. Dose-length product is 1114.34 mGy*cm The dose indicators for CT are the volume Computed Tomography (CT) Dose Index (CTDIvol) and the Dose Length Product (DLP), and are measured in units of mGy and mGy-cm, respectively. These indicators are not patient dose, but values generated from the CT scanner acquisition factors. The report includes radiation exposure data for exposures received during this examination. COMPARISON: CT HEAD WITHOUT CONTRAST on DOS: 12/21/24, CT HEAD WITHOUT CONTRAST on DOS: 09/23/24, CT HEAD WITHOUT CONTRAST on DOS: 06/06/24 FINDINGS: There is no evidence of acute intracranial hemorrhage, extra-axial collection, mass effect, midline shift, herniation or hydrocephalus. The ventricles, sulci and cisterns are age appropriate. The jackson-white differentiation is intact. Patchy periventricular and subcortical white matter hypoattenuation is nonspecific but may be related to small vessel ischemic disease. The visualized paranasal sinuses and mastoid air cells are clear. The surrounding soft tissues and osseous structures are unremarkable. IMPRESSION: 1. No acute intracranial abnormality. Labs Test 12/29/24 00:03 12/28/24 19:35 12/28/24 17:48 12/28/24 16:53 Range/Units POC Glucose 176 H 70-106 mg/dl Urine Color Light-yellow Yellow Urine Clarity Turbid H Clear Urine pH 5.5 5.0-9.0 Urine Specific [place] 1.012 1.001-1.035 Urine Protein Negative Negative Urine Ketones Negative Negative Urine Blood Negative Negative /uL Urine Nitrite Negative Negative Urine Bilirubin Negative Negative Urine Urobilinogen Normal Negative mg/dL Urine Leukocyte Esterase 3+ Negative /uL Urine Glucose 3+ H Normal mg/dL Troponin I High Sensitivity 4 </=34 ng/L Thyroid Stimulating Hormone (TSH) 0.94 0.55-4.78 uIU/mL White Blood Count 8.9 4.4-10.8 10^3/uL Red Blood Count 5.12 4.0-5.20 10^6/uL Hemoglobin 13.9 12.2-16.2 g/dL Hematocrit 42.0 36.0-46.0 % Mean Corpuscular Volume 82.1 80.0-100.0 fL Mean Corpuscular Hemoglobin 27.2 L 28.0-32.0 pg Mean Corpuscular Hemoglobin Concent 33.1 32.0-36.0 g/dL Red Cell Distribution Width 24.4 H 11.8-14.3 % Platelet Count 138 L 140-450 10^3/uL Mean Platelet Volume 9.1 6.9-10.8 fL Neutrophils (%) (Auto) 75.1 37.0-80.0 % Lymphocytes (%) (Auto) 13.3 10.0-50.0 % Monocytes (%) (Auto) 9.3 0.0-12.0 % Eosinophils (%) (Auto) 1.6 0.0-7.0 % Basophils (%) (Auto) 0.7 0.0-2.0 % Neutrophils # (Auto) 6.7 1.6-8.6 10 ^3/uL Lymphocytes # (Auto) 1.2 0.4-5.4 10 ^3/uL Monocytes # (Auto) 0.8 0-1.3 10 ^3/uL Eosinophils # (Auto) 0.1 0-0.8 10 ^3/uL Basophils # (Auto) 0.1 0-0.2 10 ^3/uL Nucleated Red Blood Cells 0.0 % Sodium Level 146 H 136-145 mmol/L Potassium Level 4.1 3.5-5.1 mmol/L Chloride Level 110 H 98-107 mmol/L Carbon Dioxide Level 29 20-31 mmol/L Anion Gap 7 5-15 Blood Urea Nitrogen 23 9-23 mg/dL Creatinine 1.63 H 0.550-1.02 mg/dL Glomerular Filtration Rate Calc 36 >90 mL/min BUN/Creatinine Ratio 14.1 10.0-20.0 Serum Glucose 135 H 74-106 mg/dL Calcium Level 9.2 8.7-10.4 mg/dL SEPSIS Sepsis Screen Date sepsis recognized/suspect: Dec 28, 2024 Time Sepsis recognized/suspect: 1424 Recent Procedure: No On Antibiotic Therapy: No Respiratory Rate >20: No Heart Rate >90: No Temp<36 C (96.8 F) or >38.3 C: No SBP <90 or MAP <65 mmHG: No New Acute Mental Status Change: No Is the patient on CPAP, BIPAP,: No Physician Orders * Cardiology Consult (12/28/24 23:24) Vital Signs Date Time Temp Pulse Resp B/P (MAP) Pulse Ox O2 Delivery O2 Flow Rate FiO2 12/29/24 01:00 98.4 49 18 117/79 (92) 98 98.4 12/28/24 23:39 52 18 96 Room Air* 0 21 12/28/24 23:39 98.2 50 19 125/75 (92) 96 98.2 12/28/24 21:01 98.2 55 18 121/58 (79) 99 98.2 12/28/24 20:53 118/56 12/28/24 20:50 98.4 66 20 118/56 (76) 96 98.4 Laboratory Tests Test 12/28/24 16:53 White Blood Count 8.9 10^3/uL (4.4-10.8) Medications Medications Dose Ordered Sig/Uyen Route Start Time Stop Time Status Last Admin Dose Admin Apixaban 5 mg BID PO 12/28/24 22:00 12/28/24 23:55 5 MG Atorvastatin Calcium 40 mg HS PO 12/28/24 22:00 12/28/24 23:55 40 MG Diagnostic Test (Pha) 1 strip ACHS 12/28/24 22:00 12/28/24 22:00 1 STRIP Insulin Human Regular ACHS SC 12/28/24 22:00 12/29/24 00:13 3 UNITS Lisinopril 5 mg ONCE ONCE PO 12/28/24 20:00 12/28/24 20:03 DC 12/28/24 20:53 5 MG Sodium Chloride 1,000 ml @ 150 mls/hr Q6H40M ONCE IV 12/28/24 17:00 12/28/24 23:39 DC 12/28/24 17:27 150 MLS/HR Sodium Chloride 1,000 ml @ 1,000 mls/hr Q1H ONCE IV 12/28/24 17:00 12/28/24 17:59 DC 12/28/24 17:27 1,000 MLS/HR Assessment/Plan Assessment/Plan Assessment Symptomatic hypotension Bradycardia Diabetes mellitus HIV Plan Admit the patient to telemetry to the hospitalist Cardiology consultation Echocardiogram pending Resume home medications Hold metoprolol and amiodarone Continue treatment per orders. Plan discussed with: Patient My Orders Orders - MONICA WENCNHansel Procedure Category Date Status Time Lisinopril Tablet PHA 12/29/24 In Process (Zestril Tablet) 10:00 Furosemide Tablet PHA 12/29/24 In Process (Lasix Tablet) 10:00 Apixaban (Eliquis) PHA 12/28/24 In Process 22:00 Atorvastatin (Lipitor) PHA 12/28/24 In Process 22:00 (Nf) Triumeq 600-50-30 PHA 12/29/24 Pending 10:00 Basic Metabolic Panel LAB 12/29/24 Logged 04:00 Glucose Blood PHA 12/28/24 In Process (Accu-Chek Comfort 22:00 Insulin R (Human) PHA 12/28/24 In Process (Insulin R) 22:00 Dextrose 50% Syringe PHA 12/28/24 In Process 20:00 Admit ADMIT 12/28/24 Transmitted 19:46 Ondansetron Hcl PHA 12/28/24 In Process (Zofran) 20:00 Cardiac DIET 12/29/24 Transmitted Diet-2gna,Lofat,Lochol Breakfast Echo 2d Mode Cardiac US 12/28/24 Logged DOP 19:46 Condition: Fair SANJU 12/28/24 In Process 19:46 Acetaminophen Tablet PHA 12/28/24 In Process (Tylenol Tablet) 20:00 Bedrest With Bathroom SANJU 12/28/24 In Process Privileg 19:46 Nitroglycerin [facility] 12/28/24 In Process Sublingual (Ntrostat 20:00 Morphine Sulfate PHA 12/28/24 In Process Injection 20:00 Stat Ekg For Chest [facility] 12/28/24 In Process Pain 19:46 Notify Of Changes [facility] 12/28/24 In Process From Base 19:46 Pipe Line Gauger For [facility] 12/28/24 In Process 24 Hours 19:46 Emergency Dysrhythmia [facility] 12/28/24 In Process Protocol 19:46 Rhythm Strips Once [facility] 12/28/24 In Process Every Shift 19:46 Oxygen By Nasal RT 12/28/24 Transmitted Cannula 19:46 * Cardiology Consult CONS 12/28/24 Transmitted 23:24 Date of Service: Dec 28, 2024 Billing Provider: MONICA WEN Common Visit Codes: [id number] INP/OBS CARE (HIGH) MONICA WEN Dec 29, 2024 04:28
[2024-12-29 06:52] LABS: Anion Gap 8 (5-15); Carbon Dioxide 27 mmol/L (20-31); Potassium 3.8 mmol/L (3.5-5.1); Sodium 144 mmol/L (136-145)
[2024-12-29 06:53] LABS: Calcium 9.2 mg/dL (8.7-10.4)
[2024-12-29 06:58] LABS: BUN/Creatinine Ratio 16.0 (10.0-20.0); Blood Urea Nitrogen 20 mg/dL (9-23)
[2024-12-29 07:03] LABS: Chloride 109 mmol/L (98-107); Glucose 157 mg/dL (74-106)
[2024-12-29] MEDS: TRIUMEQ PO SCH (09:38)
[2024-12-29] MEDS: FUROSEMIDE 40 MG TAB PO SCH (09:38)
[2024-12-29] MEDS: LISINOPRIL 5 MG TAB PO SCH (09:38)
[2024-12-29 12:32] LABS: Alanine Aminotransferase 31.0 U/L (7-40); Albumin 4.3 g/dL (3.2-4.8); Alkaline Phosphatase 53.0 U/L (46-116); Bilirubin, Direct 0.1 mg/dL (<0.3); Bilirubin, Total 0.4 mg/dL (0.2-1.0); Cholesterol 188.0 mg/dL (< 200); HDL Cholesterol 46.0 mg/dL (40-59); Total Protein 6.8 g/dL (5.7-8.2); Triglycerides 292.0 mg/dL (< 150)
--- NOTE | 2024-12-29 14:47 | DVHINCON2 ---
[facility] 12/29/24 1447: Date Seen: Dec 29, 2024 Referring Physician BENJIE Del Rio Reason for Consultation Syncope, bradycardia History of Present Illness This is a 59-year-old female who presented to the emergency room via EMS with a chief complaint of a near-syncopal event as witnessed by a family member. Per patient she was in the bathroom when she felt a sudden onset of dizziness, generalized weakness and lightheadedness causing a fall injury onto her left- sided body. Upon EMS arrival she was found to be hypotensive undergoing a blood sugar level of 119 ng/L. Upon arrival to the emergency room she was found with a blood pressure of 75/48 mmHg with an associated heart rate of 56 bpm. She underwent a 12 lead electrocardiogram revealing a sinus bradycardia rhythm at 52 bpm and no evidence of ischemia. roofing layer reviewed revealing intermittent sinus bradycardia with a HR as low as 48 bpm mostly at rest and no evidence of sinus pauses, atrioventricular blocks, or cardiac arrhythmias. She takes amiodarone 200 mg b.i.d. and metoprolol 25 mg q.d.. States she is cardiac asymptomatic and is able to ambulate for smoke breaks without any symptoms. Denies following up in the outpatient setting with the primary wiring mechanic. Significant medical history includes paroxysmal atrial fibrillation on Eliquis/amiodarone/BB therapy, congestive heart failure with preserved LV function, history of PE, orthostatic hypotension, chronic kidney disease, insulin-dependent diabetes mellitus, hypertension, dyslipidemia, HIV diagnosed 35 years ago, carpal tunnel syndrome, tobacco use, and morbid obesity. Past Medical History Past medical history reviewed. No other significant than mentioned above. Past Surgical History Right ovarian cyst removal Hernia repair Cholecystectomy Family History: Cardiovascular disease G8 FATHER Diabetes mellitus G8 SISTER Suicide G8 BROTHER Family History Family history reviewed. Social History Admits to tobacco use, one pack q4d. She has a 24.5 pack-years history. Denies the use of illicit drugs or alcohol. Allergies: Coded Allergies: Loperamide (Verified Allergy, Severe, 08/13/23) Nystatin (Verified Allergy, Severe, 08/13/23) Penicillins (Verified Allergy, Severe, 08/13/23) Diphenhydramine (Verified Allergy, Unknown, 09/23/24) Home Meds Active Scripts Insulin Glargine (Lantus) 100 Unit/Ml Inj, 15 UNITS SC BID@0700,2200 for 30 Days, #90 INJ 1 Refill Prov:BETHANY JEFF DO 11/17/24 Reported Medications Amiodarone HCl (Amiodarone HCl) 200 Mg Tab, 1 TAB PO BID for 90 Days, #180 08/18/24 Insulin Glargine (Basaglar Kwikpen) 100 Unit/Ml Inj, 100 UNITS SC BID for 30 Days, #60 08/18/24 Insulin Lispro (Insulin Lispro Kwikpen) 100 Unit/Ml Inj, 10 UNITS SC DAILY for 100 Days, #15 08/18/24 Cetirizine HCl (Cetirizine Hydrochloride) 10 Mg Tab, 1 TAB PO DAILY for 90 Days, #90 08/18/24 Dapagliflozin Propanediol (Dapagliflozin Propanediol) 5 Mg Tab, 1 TAB PO DAILY for 100 Days, #100 08/18/24 Ferrous Sulfate (Ferosul) 325 Mg Tab, 1 TAB PO DAILY for anemia 06/08/24 Lrmymnlv-Aktskkwgnzwh-Bbvccusy (Triumeq 600-50-300 mg) 1 Tab Tab, 1 TAB PO DAILY for 30 Days, #30 06/08/24 Sitagliptin Phosphate (Januvia) 100 Mg Tab, 1 DAILY for 90 Days, #90 06/08/24 Metoprolol Tartrate (Metoprolol Tartrate) 25 Mg Tab, 25 MG PO DAILY for 90 Days, #90 06/06/24 Fenofibrate (FENOFIBRATE) 145 Mg Tab, 1 TAB PO DAILY for 90 Days, #90 06/06/24 Potassium Chloride (POTASSIUM CHLORIDE CR) 10 Meq Tb, 1 TAB PO DAILY for 30 Days, #30 06/06/24 Cyclobenzaprine HCl (Cyclobenzaprine Hydrochlo) 10 Mg Tab, 1 TAB PO BID PRN for PAIN FOR MUSCLE SPASMS for 30 Days, #15 08/13/23 Famotidine (Famotidine) 20 Mg Tab, 1 TAB PO BID PRN for ACID REFLUX AND ABDOMINAL PAIN for 90 Days, #180 08/13/23 Furosemide (Furosemide) 40 Mg Tab, 1 TAB PO DAILY for 90 Days, #90 08/13/23 Hydrocodone-Acetaminophen (Hydrocodone/Acetaminophen 5-325 mg) 1 Tab Tab, 2 TAB PO BID 08/13/23 Pregabalin (Pregabalin) 200 Mg Cap, 1 CAP PO TID for 30 Days, #90 08/13/23 Lisinopril (Lisinopril) 2.5 Mg Tab, 1 TAB PO DAILY for 90 Days, #90 08/13/23 Apixaban Base (ELIQUIS) 5 Mg Tab, 1 TAB PO BID for 45 Days, #90 08/13/23 Aspirin (Aspirin) 81 Mg Chw, 1 TAB PO DAILY for 90 Days, #90 08/13/23 Atorvastatin Calcium (ATORVASTATIN CALCIUM) 40 Mg Tab, 1 TAB PO DAILY for 90 Days, #90 08/13/23 Home Meds Home medications reviewed. Current Medications Current Medications Medications (Trade) Dose Ordered Sig/Uyen Route PRN Reason Start Time Stop Time Status Last Admin Lisinopril (Zestril Tablet) 5 mg DAILY PO 12/29/24 10:00 12/29/24 09:38 Furosemide (Lasix Tablet) 40 mg DAILY PO 12/29/24 10:00 12/29/24 09:38 Apixaban (Eliquis) 5 mg BID PO 12/28/24 22:00 12/29/24 09:38 Atorvastatin Calcium (Lipitor) 40 mg HS PO 12/28/24 22:00 12/28/24 23:55 Patient Own Medication 1 tab DAILY PO 12/29/24 10:00 Diagnostic Test (Pha) (Accu-Chek Comfort Curve T) 1 strip ACHS 12/28/24 22:00 12/29/24 11:35 Insulin Human Regular (InsuLIN R) ACHS SC 12/28/24 22:00 12/29/24 11:39 Dextrose 50 ml UD PRN IV Blood Sugar LESS THAN 60 12/28/24 20:00 Ondansetron HCl (Zofran) 4 mg Q4HP PRN IV NAUSEA / VOMITING 12/28/24 20:00 Acetaminophen (Tylenol Tablet) 650 mg Q6HP PRN PO PAIN SCALE 1-3 OR TEMP>100.4 12/28/24 20:00 Nitroglycerin (Ntrostat Sublingual) 0.4 mg Q5MINP PRN SL FOR CHEST PAIN 12/28/24 20:00 Morphine Sulfate 2 mg Q30M PRN IV FOR CHEST PAIN 12/28/24 20:00 Review of Systems Constitutional: No symptom reported Ears, Nose, & Throat: No symptom reported Eyes: No symptom reported Neurological: Dizziness, lightheadedness Pulmonary/Respiratory: No symptom reported Cardiovascular: No symptom reported Gastrointestinal: No symptom reported Genitourinary: No symptom reported Musculoskeletal: No symptom reported Skin: No symptom reported Psychiatric: No symptom reported Endocrine: No symptom reported Hemotologic/Lymphatic: No symptom reported Vital Signs Vital Signs Date Time Temp Pulse Resp B/P (MAP) Pulse Ox O2 Delivery O2 Flow Rate FiO2 12/29/24 13:14 98.2 53 19 118/70 (86) 96 98.2 60 140/68 (92) 64 106/69 (81) 12/29/24 08:00 Room Air* 0 21 Physical Exam General Appearance: Cooperative. Well developed. Obese. In no acute distress Head Exam: Normal inspection Neck Exam: Normal inspection. Non-tender. Normal alignment Pulmonary/Respiratory: Chest non-tender. Clear bilateral breath sounds Cardiovascular/Chest: Regular rate and rhythm. S1, S2. Sinus rhythm with intermittent bradycardia. No murmurs. No JVD. Peripheral Pulses: 2+ Radial (R). 2+ Radial (L). 1+ Pedal (R). 1+ Pedal (L) Abdominal Exam: Normal bowel sounds. Soft. Nontender. Ankle Exam: Negative ankle edema Lower extremities: Negative lower extremity edema Neuro/Mental Status: A&O x4. Coherent Thoughts/Psych: Normal thought pattern. Appropriate mood and affect. Good judgement and insight Appearance: In no acute distress Skin Exam: Hyperpigmentation to bilateral lower extremities Labs/Diagnostic Data Labs Test 12/29/24 11:52 12/29/24 11:34 12/29/24 05:42 12/28/24 19:35 Range/Units Lactic Acid Level 1.4 0.4-2.0 mmol/L Total Bilirubin 0.4 0.2-1.0 mg/dL Direct Bilirubin 0.1 <0.3 mg/dL Aspartate Amino Transferase (AST) 28 13-40 U/L Alanine Aminotransferase (ALT) 31 7-40 U/L Alkaline Phosphatase 53 46-116 U/L Total Protein 6.8 5.7-8.2 g/dL Albumin 4.3 3.2-4.8 g/dL Triglycerides Level 292 H < 150 mg/dL Cholesterol Level 188 < 200 mg/dL LDL Cholesterol 110 H < 100 mg/dL HDL Cholesterol 46 40-59 mg/dL POC Glucose 208 H 70-106 mg/dl Sodium Level 144 136-145 mmol/L Potassium Level 3.8 3.5-5.1 mmol/L Chloride Level 109 H 98-107 mmol/L Carbon Dioxide Level 27 20-31 mmol/L Anion Gap 8 5-15 Blood Urea Nitrogen 20 9-23 mg/dL Creatinine 1.25 H 0.550-1.02 mg/dL Glomerular Filtration Rate Calc 49 >90 mL/min BUN/Creatinine Ratio 16.0 10.0-20.0 Serum Glucose 157 H 74-106 mg/dL Calcium Level 9.2 8.7-10.4 mg/dL Urine Color Light-yellow Yellow Urine Clarity Turbid H Clear Urine pH 5.5 5.0-9.0 Urine Specific [place] 1.012 1.001-1.035 Urine Protein Negative Negative Urine Ketones Negative Negative Urine Blood Negative Negative /uL Urine Nitrite Negative Negative Urine Bilirubin Negative Negative Urine Urobilinogen Normal Negative mg/dL Urine Leukocyte Esterase 3+ Negative /uL Urine Glucose 3+ H Normal mg/dL Test 12/28/24 17:48 12/28/24 16:53 Range/Units Troponin I High Sensitivity 4 </=34 ng/L Thyroid Stimulating Hormone (TSH) 0.94 0.55-4.78 uIU/mL Mean Platelet Volume 9.1 6.9-10.8 fL Neutrophils # (Auto) 6.7 1.6-8.6 10 ^3/uL Lymphocytes # (Auto) 1.2 0.4-5.4 10 ^3/uL Monocytes # (Auto) 0.8 0-1.3 10 ^3/uL Eosinophils # (Auto) 0.1 0-0.8 10 ^3/uL Basophils # (Auto) 0.1 0-0.2 10 ^3/uL Assessment Near-syncope in the setting of hypotension (SBP 70s) Paroxysmal atrial fibrillation with intermittent slow ventricular rate (on amiodarone/Eliquis therapy) Chronic compensated HRpEF Hx of orthostatic hypotension Hypertension Hyperlipidemia History of pulmonary embolism Insulin-dependent type 2 diabetes mellitus + HIV status Tobacco use Morbid obesity Plan/Recommendation (Dr. Guerrero) A recent transthoracic echocardiogram revealed an LVEF of 55-60% with mild LVH and diastolic dysfunction. Syncopal event likely secondary to hypotension. The patient continues with intermittent episodes of sinus bradycardia and is cardiac asymptomatic. Continue low-dose antiarrhythmic at 100mg BID with parameters to hold if HR <60 bpm and Eliquis therapy ([id number] VASc score: 5 points). Avoid any other AV larissa blocking agents given transient bradycardic events. She can benefit from an outpatient event monitor as outpatient to rule out tachy-ray arrhythmias and need for a possible permanent pacemaker implantation. An event monitor has been recommended in the past, somehow the patient has failed to follow-up with a primary wiring mechanic in 4 years. Monitor ECG changes and notify. Initiate a blood pressure log at home. Kindly call if in need to re- consult. Thank you for allowing us to participate in this patient's care. This medical document was created using an electronic medical record system with voice recognition software and computerized dictation system. Although this document has been carefully reviewed, there might still be some phonetic and typographical errors. Occasional wrong-word or ``sound-alike substitutions may have occurred due to the inherent limitations of voice recognition software. These areas are purely typographical due to imperfections of the software programs and do not reflect any compromise in the patient's medical care. Please read the chart carefully and recognize, using context, where these substitutions have occurred. Plan discussed with: Patient, Other NYHA Physical activity limitations: NA Date of Service: Dec 29, 2024 Billing Provider: [facility] Cardiology Common Codes: [id number] INP/OBS CARE (High) TRISH GUERRERO MD 12/29/24 1839: Family History: Cardiovascular disease G8 FATHER Diabetes mellitus G8 SISTER Suicide G8 BROTHER Allergies: Coded Allergies: Loperamide (Verified Allergy, Severe, 08/13/23) Nystatin (Verified Allergy, Severe, 08/13/23) Penicillins (Verified Allergy, Severe, 08/13/23) Diphenhydramine (Verified Allergy, Unknown, 09/23/24) Home Meds Active Scripts Insulin Glargine (Lantus) 100 Unit/Ml Inj, 15 UNITS SC BID@0700,2200 for 30 Days, #90 INJ 1 Refill Prov:BETHANY JEFF DO 11/17/24 Reported Medications Amiodarone HCl (Amiodarone HCl) 200 Mg Tab, 1 TAB PO BID for 90 Days, #180 08/18/24 Insulin Glargine (Basaglar Kwikpen) 100 Unit/Ml Inj, 100 UNITS SC BID for 30 Days, #60 08/18/24 Insulin Lispro (Insulin Lispro Kwikpen) 100 Unit/Ml Inj, 10 UNITS SC DAILY for 100 Days, #15 08/18/24 Cetirizine HCl (Cetirizine Hydrochloride) 10 Mg Tab, 1 TAB PO DAILY for 90 Days, #90 08/18/24 Dapagliflozin Propanediol (Dapagliflozin Propanediol) 5 Mg Tab, 1 TAB PO DAILY for 100 Days, #100 08/18/24 Ferrous Sulfate (Ferosul) 325 Mg Tab, 1 TAB PO DAILY for anemia 06/08/24 Nlvccztp-Icplsdhsvlhr-Xhofrmrp (Triumeq 600-50-300 mg) 1 Tab Tab, 1 TAB PO DAILY for 30 Days, #30 06/08/24 Sitagliptin Phosphate (Januvia) 100 Mg Tab, 1 DAILY for 90 Days, #90 06/08/24 Metoprolol Tartrate (Metoprolol Tartrate) 25 Mg Tab, 25 MG PO DAILY for 90 Days, #90 06/06/24 Fenofibrate (FENOFIBRATE) 145 Mg Tab, 1 TAB PO DAILY for 90 Days, #90 06/06/24 Potassium Chloride (POTASSIUM CHLORIDE CR) 10 Meq Tb, 1 TAB PO DAILY for 30 Days, #30 06/06/24 Cyclobenzaprine HCl (Cyclobenzaprine Hydrochlo) 10 Mg Tab, 1 TAB PO BID PRN for PAIN FOR MUSCLE SPASMS for 30 Days, #15 08/13/23 Famotidine (Famotidine) 20 Mg Tab, 1 TAB PO BID PRN for ACID REFLUX AND ABDOMINAL PAIN for 90 Days, #180 08/13/23 Furosemide (Furosemide) 40 Mg Tab, 1 TAB PO DAILY for 90 Days, #90 08/13/23 Hydrocodone-Acetaminophen (Hydrocodone/Acetaminophen 5-325 mg) 1 Tab Tab, 2 TAB PO BID 08/13/23 Pregabalin (Pregabalin) 200 Mg Cap, 1 CAP PO TID for 30 Days, #90 08/13/23 Lisinopril (Lisinopril) 2.5 Mg Tab, 1 TAB PO DAILY for 90 Days, #90 08/13/23 Apixaban Base (ELIQUIS) 5 Mg Tab, 1 TAB PO BID for 45 Days, #90 08/13/23 Aspirin (Aspirin) 81 Mg Chw, 1 TAB PO DAILY for 90 Days, #90 08/13/23 Atorvastatin Calcium (ATORVASTATIN CALCIUM) 40 Mg Tab, 1 TAB PO DAILY for 90 Days, #90 08/13/23 Plan/Recommendation agree with FAMILY LAW LEGAL ASSISTANT assessment and plan cut down amio dose in fact, pt may not need it in future, she needs care home follow up with her MD to decide ongoing Sinus rhythm not folliwng up can lead to worsened outcome and toxicity pt is aware [facility] Dec 29, 2024 14:47 TRISH GUERRERO MD Dec 29, 2024 18:39
[2024-12-29] MEDS ORDERED: FAMOTIDINE 20 MG TAB PO PRN (15:30)
--- NOTE | 2024-12-29 16:06 | DVH ---
X-ray left hip Technique: AP and frog-leg views REASON FOR EXAM: hip pain chronic INDICATION: hip pain chronic FINDINGS: No fractures or dislocations. No erosions or periosteal reaction. Articular surfaces are sm ooth. IMPRESSION: 1. No acute bony pathology
--- NOTE | 2024-12-29 16:07 | DVH ---
X-ray right hip AP and frog-leg views REASON FOR EXAM: hip pain acute on chronic INDICATION: hip pain acute on chronic FINDINGS: Examination limited due to overlying hernia containing loops of bowel. No definite fracture s are present e smooth. IMPRESSION: 1. Limited exam due to overlying hernia containing bowel. No definite fracture.
--- NOTE | 2024-12-29 17:02 | DVHPNRES ---
Progress Note Date Seen: Dec 29, 2024 Resident Creating Document: BRENDON LAKHANI RESIDENT Medical Necessity Reason Pt with a Central, PICC or Fol: No Subjective Review of Systems A 59-year-old female with past medical history of stage 3 Chronic kidney disease (CKD),Type 2 Diabetes mellitus (DM),Human immunodeficiency virus (HIV), Hypertension (HTN), Atrial fibrillation (AFib),Congestive heart failure (CHF) was brought to the Emergency Department by paramedics after experiencing two witnessed syncopal episodes earlier in the day. The first occurred while she was in the bathroom, and the second approximately one hour later while she was in bed. Both episodes were witnessed by a family member. She also reported generalized weakness, fatigue, dizziness, and a near-syncopal episode prior to arrival. On initial evaluation, the patient was bradycardic with a heart rate of 52 bpm and hypotensive with blood pressure in the 70s. Blood glucose was 119 mg/dL. She denies chest pain, palpitations, shortness of breath, or other associated symptoms. PMHx:stage 3 Chronic kidney disease (CKD),Type 2 Diabetes mellitus (DM),Human immunodeficiency virus (HIV), Hypertension (HTN), Atrial fibrillation (AFib),Congestive heart failure (CHF) PSHx: Hernia repair, thyroidectomy, cholecystectomy, carpal tunnel surgery Family history: Noncontributory Social history: Smokes less than 1 pack of cigarettes per day for 50 years denies alcohol and drug abuse Home medication: Lisinopril, furosemide, apixaban, atorvastatin, amiodarone, aspirin, basaglar insulin, cetirizine, insulin lispro, cyclobenzaprine, famotidine, Forxiga, fenofibrate, Januvia, metoprolol, pregabalin, trumeq Allergic history: Loperamide, nystatin, penicillin, diphenhydramine General: patient denies fever, fatigue, weaknes, sweating, any recent changes in appetite and weight HEENT: No headaches, visiual changes, hearing loss, tinnitus, nasal congestion and discharge, and sore throat. Cardiovascular: Denies chest pain, palpitations, dyspnea on exertion, orthopnea, or claudication. Respiratory: No cough, and wheezing. Gastrointestinal: Denies nausea, vomiting, dysphagia, odynophagia, heartburn, abdominal pain, flatulence, bloating, diarrhea, constipation, change in stool, or blood in stool. Genitourinary: No dysuria, hematuria, discharge, frequency, urgency, nocturia, incontinence, and urinary retention. Endocrine: No heat or cold intolerance, polydipsia, polyuria, and polyphagia. Neurological: No dizziness, extremity weakness and numbness, tremors, gait disturbance, seizures, and memory impairment. Psychiatric: Denies depression, anxiety,or insomnia. Musculoskeletal: Complains of back pain, Denies neck pain, stiffness and swelling, muscle weakness, joint pain, stiffness, swelling, or limited range of motion. Skin: No rashes, itching, skin lesion, changes in hair, nail, skin texture and breast. Hematologic/Lymphatic: Denies easy bruising, bleeding tendencies, or lymph node enlargement. Objective vital signs Vital Sign Date Time Temp Pulse Resp B/P (MAP) Pulse Ox O2 Delivery O2 Flow Rate FiO2 12/29/24 13:14 98.2 53 19 118/70 (86) 96 98.2 60 140/68 (92) 64 106/69 (81) 12/29/24 08:00 Room Air* 0 21 Total Intake and Output 12/28/24 12/28/24 12/29/24 15:00 23:00 07:00 Intake Total 200 ml Balance 200 ml medications Current Medications Medications Dose Ordered Sig/Uyen Route Start Time Stop Time Status Last Admin Dose Admin Lisinopril 5 mg DAILY PO 12/29/24 10:00 12/29/24 09:38 5 MG Furosemide 40 mg DAILY PO 12/29/24 10:00 12/29/24 09:38 40 MG Apixaban 5 mg BID PO 12/28/24 22:00 12/29/24 09:38 5 MG Atorvastatin Calcium 40 mg HS PO 12/28/24 22:00 12/28/24 23:55 40 MG Patient Own Medication 1 tab DAILY PO 12/29/24 10:00 Diagnostic Test (Pha) 1 strip ACHS 12/28/24 22:00 12/29/24 11:35 1 STRIP Insulin Human Regular ACHS SC 12/28/24 22:00 12/29/24 11:39 4 UNITS Dextrose 50 ml UD PRN IV 12/28/24 20:00 Ondansetron HCl 4 mg Q4HP PRN IV 12/28/24 20:00 Acetaminophen 650 mg Q6HP PRN PO 12/28/24 20:00 Nitroglycerin 0.4 mg Q5MINP PRN SL 12/28/24 20:00 Morphine Sulfate 2 mg Q30M PRN IV 12/28/24 20:00 Examination General Appearance: Alert, Oriented X3, Cooperative, No acute distress HEENT: Atraumatic, PERRLA, EOMI, Mucous membrane moist/pink Respiratory: Clear to auscultation, Normal air movement Cardiovascular: Regular rate, Normal S1, Normal S2, No murmurs, no chest wall tenderness Abdominal: Normal bowel sounds, Soft, No tenderness, No hepatospenomegaly, No masses Extremities: Tenderness in the iliofemoral area, No clubbing, No cyanosis, No edema, Normal pulses, Skin: No rashes, No breakdown, No significant lesion Neuro: Normal gait, Normal speech, Strength at 5/5 X4 ext, Normal tone, Sensation intact, Cranial nerves 3-12 NL, Reflexes 2+ Psych/Mental Status: Mental status NL, Mood NL laboratory and microbiology Laboratory Tests 12/29/24 05:42 Test 12/29/24 05:42 Range/Units Serum Glucose 157 H 74-106 mg/dL Problem List/Assessment/Plan Problem List/Assessment/Plan Possible orthostatic hypotension due to hypovolemia Given IV fluids Essential hypertension Lisinopril, metoprolol To rule out other infections COVID-19 antigen, rapid influenza, urinalysis asymptomatic HIV On Trumeq CD4/CD8 ratio Type 2 Diabetes mellitus Insulin Basaglar, insulin lispro, Farxiga, Januvia Stage 3 chronic kidney disease Congestive heart failure- heart failure with preserved ejection fraction On furosemide Atrial fibrillation Apixaban DIET: Cardiac diet DVT PROPHYLAXIS: Eliquis CODE STATUS: Goal of care discussed for more than 21 minutes, DNI/DNR DISPOSITION: Med/surge RECONCILED HOME MEDS:Lisinopril, furosemide, apixaban, atorvastatin, amiodarone, aspirin, basaglar insulin, cetirizine, insulin lispro, cyclobenzaprine, famotidine, Forxiga, fenofibrate, Januvia, metoprolol, pregabalin, trumeq Patient's status and plan discussed with the patient. Case discussed with Dr. Henson Plan discussed with: Patient Date of Service: Dec 29, 2024 Billing Provider: LUCRECIA HENSON MD Common Visit Codes: [id number] INP/OBS CARE(HIGH) BRENDON LAKHANI RESIDENT Dec 29, 2024 14:39 LUCRECIA HENSON MD Jan 02, 2025 22:01
[2024-12-29] MEDS: CYCLOBENZAPRINE HCL 10 MG TAB PO PRN (17:42)
[2024-12-29 21:23] LABS: COVID19 ANTIGEN SOFIA FIA NEGATIVE (NEGATIVE)
[2024-12-29] MEDS: AMIODARONE HCL 200 MG TAB PO SCH (21:24)
[2024-12-29] MEDS: APIXABAN 5 MG TAB PO SCH (21:24)
[2024-12-29] MEDS: HYDROcodone-ACET 5/325MG TAB PO SCH (21:25)
[2024-12-30 01:00] VITALS: BP 115/69; PULSE 65; RESP 17; TEMP 98.2; O2SAT 96
[2024-12-30 05:00] VITALS: BP_SYST 103; BP_SYST 104; BP_SYST 119; BP_DIAS 59; BP_DIAS 62; PULSE 53; PULSE 55; PULSE 57; RESP 17; TEMP 98; O2SAT 95
[2024-12-30 07:35] LABS: Urine Protein, UAD Negative (Negative)
[2024-12-30 08:00] VITALS: PULSE 49
[2024-12-30] MEDS: FUROSEMIDE 40 MG TAB PO SCH (08:42)
[2024-12-30 09:10] VITALS: BP 101/63; PULSE 100; PULSE 51; RESP 18; TEMP 96.8; O2SAT 100
[2024-12-30 11:07] LABS: CD4/CD8 Ratio 2.34 (0.92-3.72)
[2024-12-30 12:07] LABS: Hematocrit 43.4 % (34.0-46.6); Hemoglobin 13.7 g/dL (11.1-15.9); MCH 27.6 pg (26.6-33.0); MCHC 31.6 g/dL (31.5-35.7); MCV 87 fL (79-97); RBC 4.97 x10E6/uL (3.77-5.28); RDW 22.1 % (11.7-15.4); WBC 7.6 x10E3/uL (3.4-10.8)
[2024-12-30 13:28] VITALS: BP 108/63; PULSE 61; RESP 18; TEMP 36; O2SAT 98
[2024-12-30 13:30] VITALS: BP 111/65; PULSE 51; RESP 19; TEMP 97.1; O2SAT 99
[2024-12-30] MEDS ORDERED: AMIO200T13 PO (13:47)
[2024-12-30] MEDS ORDERED: FURO1TAB33 PO (13:47)
--- NOTE | 2024-12-30 16:10 | DVHDSRES ---
Discharge Summary Date of Admission Resident Creating Document: BRENDON LAKHANI RESIDENT Dec 28, 2024 at 19:46 Date of Discharge: Dec 30, 2024 Admitting Diagnosis Hypotensive presyncope Labs/Diagnostic Data: Laboratory Results Test 12/30/24 07:14 12/30/24 05:18 12/29/24 20:00 12/29/24 11:52 Urine Color Light-yellow (Yellow) Urine Clarity Clear (Clear) Urine pH 5.5 (5.0-9.0) Urine Specific [place] 1.024 (1.001-1.035) Urine Protein Negative (Negative) Urine Ketones Negative (Negative) Urine Blood Negative /uL (Negative) Urine Nitrite Negative (Negative) Urine Bilirubin Negative (Negative) Urine Urobilinogen Normal mg/dL (Negative) Urine Leukocyte Esterase Negative /uL (Negative) Urine RBC 1 /hpf (0 - 4) Urine Microscopic WBC 2 /HPF (0-5) Urine Squamous Epithelial Cells Few /hpf (<5) Urine Bacteria Few /hpf (None Seen) Urine Hyaline Casts Few /lpf (0 - 2) Urine Glucose 4+ mg/dL (Normal) POC Glucose 189 mg/dl (70-106) Influenza Type A Antigen Negative (Negative) Influenza Type B Antigen Negative (Negative) SARS-CoV-2 Antigen (Rapid) Negative (NEGATIVE) White Blood Count 7.6 x10E3/uL (3.4-10.8) Red Blood Count 4.97 x10E6/uL (3.77-5.28) Hemoglobin 13.7 g/dL (11.1-15.9) Hematocrit 43.4 % (34.0-46.6) Mean Corpuscular Volume 87 fL (79-97) Mean Corpuscular Hemoglobin 27.6 pg (26.6-33.0) Mean Corpuscular Hemoglobin Concent 31.6 g/dL (31.5-35.7) Red Cell Distribution Width 22.1 % (11.7-15.4) Platelet Count 156 x10E3/uL (150-450) Neutrophils (%) (Auto) 75 % (Not Estab.) Lymphocytes (%) (Auto) 13 % (Not Estab.) Monocytes (%) (Auto) 9 % (Not Estab.) Eosinophils (%) (Auto) 1 % (Not Estab.) Basophils (%) (Auto) 1 % (Not Estab.) Absolute Neutrophils (auto) 5.7 x10E3/uL (1.4-7.0) Absolute Lymphocytes (auto) 1.0 x10E3/uL (0.7-3.1) Absolute Monocytes (auto) 0.7 x10E3/uL (0.1-0.9) Absolute Eosinophils (auto) 0.1 x10E3/uL (0.0-0.4) Absolute Basophils (auto) 0.1 x10E3/uL (0.0-0.2) Immature Granulocytes % 1 % (Not Estab.) Immature Granulocytes # 0.1 x10E3/uL (0.0-0.1) Nucleated Red Blood Cells (.) Immature Blood Cells (.) Hematology Comments Note: (.) Lactic Acid Level 1.4 mmol/L (0.4-2.0) Total Bilirubin 0.4 mg/dL (0.2-1.0) Direct Bilirubin 0.1 mg/dL (<0.3) Aspartate Amino Transferase (AST) 28 U/L (13-40) Alanine Aminotransferase (ALT) 31 U/L (7-40) Alkaline Phosphatase 53 U/L (46-116) Total Protein 6.8 g/dL (5.7-8.2) Albumin 4.3 g/dL (3.2-4.8) Triglycerides Level 292 mg/dL (< 150) Cholesterol Level 188 mg/dL (< 200) LDL Cholesterol 110 mg/dL (< 100) HDL Cholesterol 46 mg/dL (40-59) Percent CD4 Cells 53.2 % (30.8-58.5) Absolute CD4 Count 532 /uL (359-1519) T-Lymphocyte CD4/CD8 Ratio 2.34 (0.92-3.72) Percent CD8 Cells 22.7 % (12.0-35.5) Absolute CD8 Count 227 /uL (109-897) Test 12/29/24 05:42 12/28/24 17:48 12/28/24 16:53 Sodium Level 144 mmol/L (136-145) Potassium Level 3.8 mmol/L (3.5-5.1) Chloride Level 109 mmol/L (98-107) Carbon Dioxide Level 27 mmol/L (20-31) Anion Gap 8 (5-15) Blood Urea Nitrogen 20 mg/dL (9-23) Creatinine 1.25 mg/dL (0.550-1.02) Glomerular Filtration Rate Calc 49 mL/min (>90) BUN/Creatinine Ratio 16.0 (10.0-20.0) Serum Glucose 157 mg/dL (74-106) Calcium Level 9.2 mg/dL (8.7-10.4) Troponin I High Sensitivity 4 ng/L (</=34) Thyroid Stimulating Hormone (TSH) 0.94 uIU/mL (0.55-4.78) Mean Platelet Volume 9.1 fL (6.9-10.8) Neutrophils # (Auto) 6.7 10 ^3/uL (1.6-8.6) Lymphocytes # (Auto) 1.2 10 ^3/uL (0.4-5.4) Monocytes # (Auto) 0.8 10 ^3/uL (0-1.3) Eosinophils # (Auto) 0.1 10 ^3/uL (0-0.8) Basophils # (Auto) 0.1 10 ^3/uL (0-0.2) Other Laboratory Tests 12/29/24 11:52 12/29/24 05:42 Brief Hx & Hospital Course: The patient is a 59-year-old female with a complex medical history including stage 3 chronic kidney disease, type 2 diabetes mellitus, HIV, hypertension, atrial fibrillation, and congestive heart failure. She was brought to the Emergency Department by paramedics following two witnessed syncopal episodes earlier in the day. The first episode occurred while she was in the bathroom, and the second approximately one hour later while she was in bed. Both events were witnessed by a family member. Prior to arrival, she also reported generalized weakness, fatigue, dizziness, and a near-syncopal episode. On initial evaluation, she was found to be bradycardic with a heart rate of 52 beats per minute and hypotensive with systolic blood pressure in the 70s. Her blood glucose was 119 mg/dL. She denied chest pain, palpitations, shortness of breath, or other associated symptoms. Cardiology was consulted and reviewed a recent transthoracic echocardiogram, which showed a left ventricular ejection fraction of 5560% with mild left ventricular hypertrophy and diastolic dysfunction. Head CT showed no intracranial abnormalities. Bilateral hip x-rays were normal, done to rule out any fractures, since the patient complained of pain in the hip area The syncopal episodes were thought to be secondary to hypotension. During her hospital stay, the patient continued to experience intermittent episodes of sinus bradycardia but remained cardiac asymptomatic. She was monitored closely and remained hemodynamically stable. Condition at Discharge: Fair Final Diagnosis/Problems List Hypotensive presyncope due to hypovolemia HIV on chronic suppressive drugs A fib with rvr chronic HFpEF Essential HTN Grade II obesity Dyslipidemia Stage 3 CKD Discharge Disposition: Home Discharge Instruct/Medications Diet: Cardiac 2g Na,low cholest Activity: No Restrictions, As Tolerated Follow Up/Referral: Follow up with PCP in 7 days Follow up with discharge clinic within 14 days on Sunday AM with Dr Henson. Medications: As per EHR Stop lisinopril Change of dose Lasix now 20mg oral daily and Amiodarone 100 mg oral twice daily Scheduled Lbcdcztb-Reucqkqkypdm-Dzrsdgdp (Triumeq 600-50-300 mg), 1 TAB PO DAILY, (Reported) Amiodarone HCl (Amiodarone HCl), 100 MG PO BID Apixaban Base (Eliquis), 1 TAB PO BID, (Reported) Aspirin (Aspirin), 1 TAB PO DAILY, (Reported) Atorvastatin Calcium (Atorvastatin Calcium), 1 TAB PO DAILY, (Reported) Cetirizine HCl (Cetirizine Hydrochloride), 1 TAB PO DAILY, (Reported) Dapagliflozin Propanediol (Dapagliflozin Propanediol), 1 TAB PO DAILY, (Reported) Fenofibrate (Fenofibrate), 1 TAB PO DAILY, (Reported) Ferrous Sulfate (Ferosul), 1 TAB PO DAILY, (Reported) Furosemide (Lasix), 1 TAB PO DAILY Hydrocodone-Acetaminophen (Hydrocodone/Acetaminophen 5-325 mg), 2 TAB PO BID, (Reported) Insulin Glargine (Basaglar Kwikpen), 100 UNITS SC BID, (Reported) Insulin Glargine (Lantus), 15 UNITS SC BID@0700,2200 Insulin Lispro (Insulin Lispro Kwikpen), 10 UNITS SC DAILY, (Reported) Pregabalin (Pregabalin), 1 CAP PO TID, (Reported) Sitagliptin Phosphate (Januvia), 1 DAILY, (Reported) Scheduled PRN Cyclobenzaprine HCl (Cyclobenzaprine Hydrochlo), 1 TAB PO BID PRN for PAIN FOR MUSCLE SPASMS, (Reported) Famotidine (Famotidine), 1 TAB PO BID PRN for ACID REFLUX AND ABDOMINAL PAIN, (Reported) Discontinued Medications Amiodarone HCl (Amiodarone HCl), 1 TAB PO BID, (Reported) Furosemide (Furosemide), 1 TAB PO DAILY, (Reported) Lisinopril (Lisinopril), 1 TAB PO DAILY, (Reported) Metoprolol Tartrate (Metoprolol Tartrate), 25 MG PO DAILY, (Reported) Potassium Chloride (Potassium Chloride Cr), 1 TAB PO DAILY, (Reported) Discharge Statement: "Patient was advised to return to the ER or call 911 if any headaches, dizziness, shortness of breath, chest pain, abdominal pain, bleeding, fevers, or worsening of medical condition. Patient was counseled about treatment plan, medications, possible side effects, patientverbalized understanding. All questions were answered to the best of my ability. This discharge took greater then 30 minutes in planning, reviewing documentation, counseling the patient, and discussing with other team members." ASSESSMENT ASSESSMENT Assessment Hypotensive presyncope HIV on chronic suppressive drugs A fib with rvr HFpEF HTN Grade II obesity Dyslipidemia CKD Date of Service: Dec 30, 2024 Billing Provider: LUCRECIA HENSON MD Common Visit Codes: 63815-XTG/OBS DISCH DAY >30min BRENDON LAKHANI RESIDENT Dec 30, 2024 16:04 LUCRECIA HENSON MD Jan 02, 2025 22:18
== END 2024-12-30 14:30 | disposition home or self-care (01) | DRG 422 ==
LOC: EDBD 12:59 → ER 13:04 → OVERFLOW 19:46 → TELE-CENTR 23:26
PROVIDERS: ADMIT Student in an Organized Health Care Education/Training Program; ATTEND Student in an Organized Health Care Education/Training Program
DX: E86.1 Hypovolemia (principal); I13.0 Hypertensive heart and chronic kidney disease with heart failure and stage 1 through stage 4 chronic kidney disease, or unspecified chronic kidney disease; I95.9 Hypotension, unspecified; E11.22 Type 2 diabetes mellitus with diabetic chronic kidney disease; I50.42 Chronic combined systolic (congestive) and diastolic (congestive) heart failure; E78.5 Hyperlipidemia, unspecified; E66.01 Morbid (severe) obesity due to excess calories; I48.0 Paroxysmal atrial fibrillation; F17.210 Nicotine dependence, cigarettes, uncomplicated; N18.30 Chronic kidney disease, stage 3 unspecified; Z88.0 Allergy status to penicillin; Z88.8 Allergy status to other drugs, medicaments and biological substances; Z86.73 Personal history of transient ischemic attack (TIA), and cerebral infarction without residual deficits; Z79.4 Long term (current) use of insulin; Z79.899 Other long term (current) drug therapy; Z90.49 Acquired absence of other specified parts of digestive tract; Z83.3 Family history of diabetes mellitus; Z82.49 Family history of ischemic heart disease and other diseases of the circulatory system; Z86.711 Personal history of pulmonary embolism; Z79.01 Long term (current) use of anticoagulants; Z68.36 Body mass index [BMI] 36.0-36.9, adult; Z79.84 Long term (current) use of oral hypoglycemic drugs
CPT/HCPCS: 36415; 70450; 71045; 73502; 80048; 80061; 80076; 81001; 81003; 82962; 83605; 84443; 84484; 85025; 86360; 87426; 87804; 93005; 96360; 99291; 99292; G0378; J1815

== ENCOUNTER 2025-01-02 15:07 | Inpatient (IN) | payer MEDICAID ==
[~2025-01-02] VITALS: Ht 162.6 cm; Wt 100.0 kg
[~2025-01-02 15:07] MED LIST changes: +FURO1TAB33 PO; -FURO40TA4 PO; -LISI2.5T47 PO; -METO25TA5 PO; -POTA-36 PO
--- NOTE | 2025-01-02 15:44 | ED.PDOC ---
HPI Comments This is a 59 year old female SYMONEA presenting to the ED with chief complaint of chest pain. Patient reports that she has been experiencing left sided, stabbing chest pain with associated headache all day today. Patient relays that her BP was noted to be elevated at home. Patient is worried she may be having a stroke due to some left sided facial droop, however, she has has previous deficits due to a previous CVA in the past. Patient denies any SOB, dizziness, N/V, abdominal pain, or fever. Patient was hypotensive and bradycardic at arrival. Chief Complaint: General Weakness Time Seen by MD: 15:41 Primary Care Provider: unknown Reviewed Notes: Nurses Notes, Russian Language Professor Notes, Medications, Allergies Allergies: Coded Allergies: Loperamide (Verified Allergy, Severe, 08/13/23) Nystatin (Verified Allergy, Severe, 08/13/23) Penicillins (Verified Allergy, Severe, 08/13/23) Diphenhydramine (Verified Allergy, Unknown, 09/23/24) Home Meds Active Scripts Furosemide (Lasix) 20 Mg Tb, 1 TAB PO DAILY for 30 Days, #30 TAB 1 Refill Prov:LISA OAKES RESIDENT 12/30/24 Amiodarone HCl (Amiodarone HCl) 200 Mg Tab, 100 MG PO BID for 30 Days, #30 TAB please hold if heart rate remains below 50 / min Prov:LISA OAKES RESIDENT 12/30/24 Insulin Glargine (Lantus) 100 Unit/Ml Inj, 15 UNITS SC BID@0700,2200 for 30 Days, #90 INJ 1 Refill Prov:BETHANY JEFF DO 11/17/24 Reported Medications Insulin Glargine (Basaglar Kwikpen) 100 Unit/Ml Inj, 100 UNITS SC BID for 30 Days, #60 08/18/24 Insulin Lispro (Insulin Lispro Kwikpen) 100 Unit/Ml Inj, 10 UNITS SC DAILY for 100 Days, #15 08/18/24 Cetirizine HCl (Cetirizine Hydrochloride) 10 Mg Tab, 1 TAB PO DAILY for 90 Days, #90 08/18/24 Dapagliflozin Propanediol (Dapagliflozin Propanediol) 5 Mg Tab, 1 TAB PO DAILY for 100 Days, #100 08/18/24 Ferrous Sulfate (Ferosul) 325 Mg Tab, 1 TAB PO DAILY for anemia 06/08/24 Gbvjtbkm-Tzincralqgwn-Giglyhgn (Triumeq 600-50-300 mg) 1 Tab Tab, 1 TAB PO DAILY for 30 Days, #30 06/08/24 Sitagliptin Phosphate (Januvia) 100 Mg Tab, 1 DAILY for 90 Days, #90 06/08/24 Fenofibrate (FENOFIBRATE) 145 Mg Tab, 1 TAB PO DAILY for 90 Days, #90 06/06/24 Cyclobenzaprine HCl (Cyclobenzaprine Hydrochlo) 10 Mg Tab, 1 TAB PO BID PRN for PAIN FOR MUSCLE SPASMS for 30 Days, #15 08/13/23 Famotidine (Famotidine) 20 Mg Tab, 1 TAB PO BID PRN for ACID REFLUX AND ABDOMINAL PAIN for 90 Days, #180 08/13/23 Hydrocodone-Acetaminophen (Hydrocodone/Acetaminophen 5-325 mg) 1 Tab Tab, 2 TAB PO BID 08/13/23 Pregabalin (Pregabalin) 200 Mg Cap, 1 CAP PO TID for 30 Days, #90 08/13/23 Apixaban Base (ELIQUIS) 5 Mg Tab, 1 TAB PO BID for 45 Days, #90 08/13/23 Aspirin (Aspirin) 81 Mg Chw, 1 TAB PO DAILY for 90 Days, #90 08/13/23 Atorvastatin Calcium (ATORVASTATIN CALCIUM) 40 Mg Tab, 1 TAB PO DAILY for 90 Days, #90 08/13/23 Discontinued Reported Medications Amiodarone HCl (Amiodarone HCl) 200 Mg Tab, 1 TAB PO BID for 90 Days, #180 08/18/24 Metoprolol Tartrate (Metoprolol Tartrate) 25 Mg Tab, 25 MG PO DAILY for 90 Days, #90 06/06/24 Potassium Chloride (POTASSIUM CHLORIDE CR) 10 Meq Tb, 1 TAB PO DAILY for 30 Days, #30 06/06/24 Furosemide (Furosemide) 40 Mg Tab, 1 TAB PO DAILY for 90 Days, #90 08/13/23 Lisinopril (Lisinopril) 2.5 Mg Tab, 1 TAB PO DAILY for 90 Days, #90 08/13/23 Information Source: Patient, Emergency Med Personnel Mode of Arrival: EMS Severity: Moderate Timing: Hours Duration: Since onset Prehospital treatment: None Location: Chest (L) Radiation: No Radiation Quality: Stabbing Onset: At Rest Cardiac Risk Factors: HTN, Diabetes PE Risk Factors: None History of: Similar pain in past Past Medical History PAST MEDICAL HISTORY: AFIB, CHF, CKF, CVA, DM, HIV, HTN, Seizures Surgical History: Cholecystectomy, Hernia Repair, Thyroidectomy HAND [employer] CLE[employer]ER History: No Pertinent HAND [employer]ER History Family History Family History: Reviewed,noncontributory to illness, Unknown Social History Smoker: Cigarettes Alcohol: Denies ETOH Use Drugs: Denies Drug Use Lives In: Home Constitutional: reports: weakness; denies: chills, diaphoresis, fatigue, fever, malaise, sweats, others EENTM: denies: blurred vision, double vision, ear bleeding, ear discharge, ear drainage, ear pain, ear ringing, eye pain, eye redness, hearing loss, mouth pain, mouth swelling, nasal discharge, nose bleeding, nose congestion, nose pain, photophobia, tearing, throat pain, throat swelling, voice changes, others Respiratory: denies: cough, hemoptysis, orthopnea, SOB at rest, shortness of breath, SOB with excertion, stridor, wheezing, others Cardiovascular: reports: chest pain; denies: dizzy spells, diaphoresis, Dyspnea on exertion, edema, irregular heart beat, left arm pain, lightheadedness, palpitations, PND, syncope, others Gastrointestinal: denies: abdomen distended, abdominal pain, blood streaked bowels, constipated, diarrhea, dysphagia, difficulty swallowing, hematemesis, melena, nausea, poor appetite, poor fluid intake, rectal bleeding, rectal pain, vomiting, others Genitourinary: denies: abnormal vagina bleeding, burning, dyspareunia, dysuria, flank pain, frequency, hematuria, incontinence, pain, , vagina discharge, urgency, others Neurological: reports: headache; denies: dizziness, fainting, left sided nu mbness, left sided weakness, numbness, paresthesia, pre-existing deficit, right sided numbness, right sided weakness, seizure, speech problems, tingling, tremors, weakness, others Musculoskeletal: denies: back pain, gout, joint pain, joint swelling, muscle pain, muscle stiffness, neck pain, others Integumetry: denies: bruises, change in color, change in hair/nails, dryness, laceration, lesions, lumps, rash, wounds, others Allergic/Immunocompromised: denies: Difficulty Healing, Frequent Infections, Hives, Itching, others Hematologic/Lymphatic: denies: anemia, blood clots, easy bleeding, easy bruising, swollen glands, others Endocrine: denies: excessive hunger, excessive sweating, excessive thirst, excessive urination, flushing, intolerance to cold, intolerance to heat, unexpla ined weight gain, unexplained weight loss, others Psychiatric: denies: anxiety, bipolar disorder, depression, hopeless, panic disorder, schizophrenia, sleepless, suicidal, others All Other Systems: Reviewed and Negative Physical Exam General Appearance: Mild Distress (Patient is in mild distress due to some discomfort, but patient's speech pattern is unusual and she is slow to recall medical history. Patient appears to be in poor overall health.), Normal HEENT: Head (Unremarkable cranial evaluation. No signs of trauma. No skull depressions or deformities.), Normal ENT Inspection, Pharynx Normal, TMs Normal Neck: Full Range of Motion, Non-Tender, Normal, Normal Inspection Respiratory: Chest Non-Tender, Lungs Clear, No Accessory Muscle Use, No Respiratory Distress, Normal Breath Sounds Cardiovascular: Bradycardia, No JVD, No Murmur, No Gallop, Normal Peripheral Pulses Breast Exam: Deferred Gastrointestinal: No Organomegaly, Non Tender, No Pulsatile Mass, Normal Bowel Sounds, Soft Genitalia: Deferred Pelvic: Deferred Rectal: Deferred Extremities: Leg edema, Normal capillary refill, Normal range of motion Neurologic: Other (Patient is a alert and conversational, but I can not tell with the patient has worsening slurred speech and or worsening medical recall.) Cerebellar Function: NOT DONE Reflexes: NOT DONE Skin: Dry, Normal Color, Warm Lymphatic: No Adenopathy Was a procedure done? Was a procedure done?: No CP Differential Dx Differential Diagnosis: A-fib, Anxiety / Panic Attack, Atrial Dysrhythmia, SC Differential Diagnosis: CHF Differential Diagnosis: Angina, Chest Wall Pain, Pneumonia, Pulmonary Embolus X-Ray, Labs, Meds, VS Vital Signs Date Time Temp Pulse Resp B/P (MAP) Pulse Ox O2 Delivery O2 Flow Rate FiO2 01/02/25 18:00 48 10 107/70 (82) 92 01/02/25 16:21 52 52 94 Room Air* 0 21 01/02/25 15:38 97.5 92 14 98/52 (67) 92 97.5 01/02/25 15:30 98.4 53 55 100/62 100 98.4 01/02/25 15:13 52 Lab Test 01/02/25 17:56 01/02/25 16:21 Range/Units Troponin I High Sensitivity Pending < 3 L </=34 ng/L White Blood Count 7.2 4.4-10.8 10^3/uL Red Blood Count 5.09 4.0-5.20 10^6/uL Hemoglobin 14.2 12.2-16.2 g/dL Hematocrit 42.4 36.0-46.0 % Mean Corpuscular Volume 83.4 80.0-100.0 fL Mean Corpuscular Hemoglobin 27.8 L 28.0-32.0 pg Mean Corpuscular Hemoglobin Concent 33.4 32.0-36.0 g/dL Red Cell Distribution Width 23.9 H 11.8-14.3 % Platelet Count 141 140-450 10^3/uL Mean Platelet Volume 9.2 6.9-10.8 fL Neutrophils (%) (Auto) 69.3 37.0-80.0 % Lymphocytes (%) (Auto) 17.6 10.0-50.0 % Monocytes (%) (Auto) 9.5 0.0-12.0 % Eosinophils (%) (Auto) 2.6 0.0-7.0 % Basophils (%) (Auto) 1.0 0.0-2.0 % Neutrophils # (Auto) 5.0 1.6-8.6 10 ^3/uL Lymphocytes # (Auto) 1.3 0.4-5.4 10 ^3/uL Monocytes # (Auto) 0.7 0-1.3 10 ^3/uL Eosinophils # (Auto) 0.2 0-0.8 10 ^3/uL Basophils # (Auto) 0.1 0-0.2 10 ^3/uL Nucleated Red Blood Cells 0.3 % Prothrombin Time 10.5 9.3-11.8 sec Prothrombin Time INR 0.99 0.9-1.15 Activated Partial Thromboplast Time 27.0 24.5-34.5 SEC D-Dimer, Quantitative 1.06 H 0.0-0.49 mg/L FEU Sodium Level 138 # 136-145 mmol/L Potassium Level 3.9 3.5-5.1 mmol/L Chloride Level 105 98-107 mmol/L Carbon Dioxide Level 26 20-31 mmol/L Anion Gap 7 5-15 Blood Urea Nitrogen 27 H 9-23 mg/dL Creatinine 1.70 #H 0.550-1.02 mg/dL Glomerular Filtration Rate Calc 34 >90 mL/min BUN/Creatinine Ratio 15.9 10.0-20.0 Serum Glucose 246 H 74-106 mg/dL Calcium Level 8.9 8.7-10.4 mg/dL Total Bilirubin 0.2 0.2-1.0 mg/dL Aspartate Amino Transferase (AST) 36 13-40 U/L Alanine Aminotransferase (ALT) 33 7-40 U/L Alkaline Phosphatase 60 46-116 U/L B-Type Natriuretic Peptide 34.74 0-100 pg/mL Total Protein 6.4 5.7-8.2 g/dL Albumin 4.2 3.2-4.8 g/dL Current Medications Medications (Trade) Dose Ordered Sig/Uyen Route Start Time Stop Time Status Last Admin Aspirin 325 mg ONCE ONCE PO 01/02/25 15:45 01/02/25 15:46 DC 01/02/25 16:26 Acetaminophen/ Hydrocodone Bitart ([place] 10/325MG Tab) 1 tab ONCE ONCE PO 01/02/25 15:45 01/02/25 15:46 DC 01/02/25 16:26 X-Ray, Labs, Meds, VS Comment All studies performed the ED were evaluated by me personally. Serum laboratories revealed what appears to be an acute renal injury, moderate hyperglycemic state and elevated D-dimer. Due to renal disease, patient may require a V/Q scan tomorrow. Additionally, patient was hypotensive and bradycardic throughout her stay. EKG revealed a sinus rhythm of 52. Right axis deviation with low voltage in precordial leads and possible old inferior injury. KS interval 156 and QT interval 480. Cardiac markers were unremarkable for any acute concerns. Chest x-ray revealed a as increased interstitial prominence which may represent vascular congestion and or viral pneumonia. Patient will be admitted for neuro evaluation as well as possible nephrology evaluation. Additionally, patient will require a cardiology consult. Time of 1ST Reevaluation: 18:30 Reevaluation 1ST: Improved Consultation: PCP, Cardiology, Neurology Patient Education/Counseling: Diagnosis, Treatment Family Education/Counseling: Diagnosis, Treatment, No Family Present SEPSIS Sepsis Screen Recent Procedure: No On Antibiotic Therapy: No Respiratory Rate >20: Yes Heart Rate >90: No Temp<36 C (96.8 F) or >38.3 C: No SBP <90 or MAP <65 mmHG: No New Acute Mental Status Change: Yes Is the patient on CPAP, BIPAP,: No IV fluid challenge completed?: No Physician Orders Chest Portable (01/02/25 15:40) Urinalysis (01/02/25 15:40) Heplock Iv (01/02/25 15:40) Infection Preventionist (01/02/25 15:40) Electrocardigram (01/02/25 15:40) Troponin-I Hs (01/02/25 16:40) Troponin-I Hs (01/02/25 18:40) Head Without Contrast (01/02/25 15:40) Heplock Iv (01/02/25 ) *Consult Dr. Jane Bach (01/02/25 18:22) Vital Signs Date Time Temp Pulse Resp B/P (MAP) Pulse Ox O2 Delivery O2 Flow Rate FiO2 01/02/25 18:00 48 10 107/70 (82) 92 01/02/25 16:21 52 52 94 Room Air* 0 21 01/02/25 15:38 97.5 92 14 98/52 (67) 92 97.5 01/02/25 15:30 98.4 53 55 100/62 100 98.4 01/02/25 15:13 52 Laboratory Tests Test 01/02/25 16:21 White Blood Count 7.2 10^3/uL (4.4-10.8) Medications Medications Dose Ordered Sig/Uyen Route Start Time Stop Time Status Last Admin Dose Admin Acetaminophen/ Hydrocodone Bitart 1 tab ONCE ONCE PO 01/02/25 15:45 01/02/25 15:46 DC 01/02/25 16:26 Aspirin 325 mg ONCE ONCE PO 01/02/25 15:45 01/02/25 15:46 DC 01/02/25 16:26 Departure 1 Departure Time of Disposition: 18:32 Impression: Primary Impression: Hypotension Additional Impressions: Bradycardia Altered mental status Acute renal injury Hyperglycemia Elevated d-dimer Disposition: ADMITTED INPATIENT Condition: Fair Discharged With: Self Critical Care Note Critical Care Time?: No Stability Stability form required: No Heart Score Heart Score: Heart Score Response (Comments) Value History Slightly Suspicious 0 EKG Repolarization Disturb 1 Age 45-64 1 Risk Factors >3 or Hx ASHD 2 Troponin Normal limit 0 Total 4 I personally scribed for NATALEE DAN PAC ([email or web address]) on 01/02/25 at 15:44. Electronically submitted by Murali Moses ([email or web address]). NATALEE DAN PAC Jan 02, 2025 15:44
[2025-01-02 16:21] VITALS: PULSE 52; RESP 52; O2SAT 94
--- NOTE | 2025-01-02 16:25 | DVH ---
CHEST RADIOGRAPH Indication: Shortness of breath Technique: Single frontal view of the chest was obtained COMPARISON: XY CHEST PORTABLE on DOS: 12/28/24, XY CHEST XRAY 1 VIEW on DOS: 12/04/24, XY CHEST PORTABL E on DOS: 11/08/24, XY CHEST XRAY 1 VIEW on DOS: 10/17/24, XY CHEST XRAY 1 VIEW on DOS: 09/23/24 FINDINGS: Lines and Tubes: None Lungs: Congestion Pleura: No effusion. No pneumothorax. Cardiomediastinal contours: Cardiomegaly Bones: Unremarkable IMPRESSION: Increased interstital prominence. This may represent pulmonary vascular congestion and/or viral pneum onia. Clinical correlation advised.
[2025-01-02] MEDS: HYDROcodone-ACET 10/325MG TAB PO ONE (16:26)
--- NOTE | 2025-01-02 16:26 | DVH ---
EXAM: CT HEAD WITHOUT CONTRAST INDICATION: Altered mental status TECHNIQUE: CT of the head without intravenous contrast. Radiation Dose Information: CT Dose: CTDI volume is 51.77 mGy. Dose-length product is 863.9 mGy*cm The dose indicators for CT are the volume Computed Tomography (CT) Dose Index (CTDIvol) and the Dose Length Product (DLP), and are measured in units of mGy and mGy-cm, respectively. These indicators are not patient dose, but values generated from the CT scanner acquisition factors. The report includes radiation exposure data for exposures received during this examination. COMPARISON: CT HEAD WITHOUT CONTRAST on DOS: 12/28/24, CT HEAD WITHOUT CONTRAST on DOS: 12/21/24, CT HEA D WITHOUT CONTRAST on DOS: 09/23/24 FINDINGS: There is no evidence of acute intracranial hemorrhage, extra-axial collection, mass effect, midline s hift, herniation or hydrocephalus. The ventricles, sulci and cisterns are age appropriate. The jackson-white differentiation is intact. Patchy periventricular and subcortical white matter hypoattenuation is nonspecific but may be related to small vessel ischemic disease. The visualized paranasal sinuses and mastoid air cells are clear. The surrounding soft tissues and osseous structures are unremarkable. IMPRESSION: 1. No acute intracranial abnormality. HS:Y
[2025-01-02 16:39] LABS: Hematocrit 42.4 % (36.0-46.0); Hemoglobin 14.2 g/dL (12.2-16.2); Mean Corpuscular Hemoglobin 27.8 pg (28.0-32.0); Mean Corpuscular Volume 83.4 fL (80.0-100.0); Nucleated Red Blood Cells % 0.3 %
[2025-01-02 16:53] LABS: Alanine Aminotransferase 33 U/L (7-40); Albumin 4.2 g/dL (3.2-4.8); Alkaline Phosphatase 60 U/L (46-116); Anion Gap 7 (5-15); BUN/Creatinine Ratio 15.9 (10.0-20.0); Calcium 8.9 mg/dL (8.7-10.4); Carbon Dioxide 26 mmol/L (20-31); Chloride 105 mmol/L (98-107); Potassium 3.9 mmol/L (3.5-5.1); Sodium 138 mmol/L (136-145); Total Protein 6.4 g/dL (5.7-8.2)
[2025-01-02 16:58] LABS: Bilirubin, Total 0.2 mg/dL (0.2-1.0); Blood Urea Nitrogen 27 mg/dL (9-23); Glucose 246 mg/dL (74-106)
[2025-01-02 17:00] LABS: INR 0.99 (0.9-1.15); Partial Thromboplastin Time 27.0 SEC (24.5-34.5); Prothrombin Time 10.5 sec (9.3-11.8)
--- NOTE | 2025-01-02 19:10 | ECG ---
[facility] Test Date: 2025-01-02 Test Time: 15:13:41 Pat Name: FELICE COLE Department: ED Room: 0221T Gender: F [employer] Professional: SARAI : [id number] Requested By: NATALEE DAN Order Number: [id number] Reading MD: Stephen Gomez Measurements Intervals [place] Rate: 52 P: 63 RI: 156 QRS: 125 QRSD: 104 T: 70 QT: 480 QTc: 447 Interpretive Statements Sinus rhythm Right axis deviation Low voltage, precordial leads ST elevation, consider inferior injury Electronically Signed On 01-05-2025 22:50:51 PDT by Stephen Gomez Please click the below link to view image of tracing.
[2025-01-02 19:30] VITALS: PULSE 51; RESP 12; O2SAT 88
[2025-01-02] MEDS ORDERED: DEXTROSE (50%) 50ML SYRG IV PRN (21:00)
[2025-01-02] MEDS ORDERED: ACETAMINOPHEN 325 MG TAB PO PRN (21:00)
[2025-01-02] MEDS ORDERED: DOCUSATE SOD 100 MG CAP PO PRN (21:00)
[2025-01-02] MEDS ORDERED: ONDANSETRON HCL 4 MG/2 ML VIAL IV PRN (21:00)
[2025-01-02] MEDS ORDERED: NITROGLYCERIN 0.4 MG SL TAB SL PRN (21:45)
[2025-01-02] MEDS ORDERED: MORPHINE SULFATE INJ 2 MG/ml SYRG IV PRN (21:45)
--- NOTE | 2025-01-02 21:49 | DVHHP2 ---
History of Present Illness Reason for Visit: Generalized weakness History of Present Illness The patient is a 59-year-old female with multiple past medical history including AFib, CHF, seizures, and hypertension who presented to [facility] ED with complaint of chest pain. Patient reports she has been experiencing left- sided chest pain, stabbing in nature, associated with headache, left-sided facial droop, getting worse that prompted this visit. Patient has previous deficit due to previous CVA in the past. Patient was seen and evaluated in the ED, laboratory data shows WBC 7.2, platelets 141, sodium 138, potassium 3.9, BUN 27, creatinine 1.70, glucose 246, calcium 8.9, BNP 34.74, troponin three, D- dimer 1.06, blood pressure 109/70, heart rate 52, temperature 97.5 F, O2 saturation 97% on oxygen. CT Angiography showed no pulmonary emboli. Head CT showed no acute intracranial abnormality. Chest x-ray revealing increased interstitial prominence, this may represent pulmonary vascular congestion and/or viral pneumonia. Patient was started on IV antibiotic regimen azithromycin, please see medication orders section in the computer. On my assessment, patient denies chest pain at this moment, no headache, no dizziness, no diaphoresis, currently on oxygen, no abdominal pain, no nausea, no vomiting, no fever, no chills. Patient was admitted for further evaluation and medical management. Past Medical History AFIB, CHF, CKF, CVA, DM, HIV, HTN, Seizures Past Surgical History Cholecystectomy, Hernia Repair, Thyroidectomy Family History Reviewed, noncontributory to the management of this case. Past Social History The patient lives at home, denies smoking, alcohol or illicit drugs abuse. Review of Systems Constitutional: Yes: Weakness; No: Fever, Chills, Sweats, Malaise, Other Eyes: No: Pain, Vision change, Conjunctivae inflammation, Eyelid inflammation, Other, Redness ENT: No: Ear pain, Ear discharge, Nose pain, Nose discharge, Nose congestion, Mouth pain, Mouth swelling, Throat pain, Throat swelling, Other Respiratory: No: Cough, Dry, Shortness of breath, SOB with excertion, Wheezing, Hemoptysis, Pleuritic Pain, Sputum, Wheezing, Other Cardiovascular: Chest Pain; No: Palpitations, Orthopnea, Paroxysmal Noc. Dyspnea, Edema, Lt Headedness, Other Gastrointestinal: No: Nausea, Vomiting, Abdominal Pain, Diarrhea, Constipation, Melena, Hematochezia, Other Genitourinary: No Dysuria, No Frequency, No Incontinence, No Hematuria, No Retention, No Other Musculoskeletal: No: other, neck pain, shoulder pain, arm pain, back pain, hand pain, leg pain, foot pain Skin: No: Rash, Lesions, Jaundice, Bruising, Other Neurological: Numbness (Facial droops), Other (Headache); No: Weakness, Incoordination, Change in speech, Confusion, Seizures Allergies: Coded Allergies: Loperamide (Verified Allergy, Severe, 08/13/23) Nystatin (Verified Allergy, Severe, 08/13/23) Penicillins (Verified Allergy, Severe, 08/13/23) Diphenhydramine (Verified Allergy, Unknown, 09/23/24) Medications Current Medications Medications Dose Ordered Sig/Uyen Route Start Time Stop Time Status Last Admin Dose Admin Aspirin 81 mg DAILY PO 01/03/25 10:00 Atorvastatin Calcium 20 mg HS PO 01/02/25 22:00 Famotidine 20 mg Q12HR IV 01/02/25 22:00 Azithromycin 250 ml @ 125 mls/hr DAILY IV 01/03/25 10:00 Apixaban 5 mg BID PO 01/02/25 22:00 Diagnostic Test (Pha) 1 strip IQ4HR 01/03/25 00:00 Insulin Human Regular IQ4HR SC 01/03/25 00:00 Dextrose 50 ml UD PRN IV 01/02/25 21:00 Sodium Chloride 1,000 ml @ 60 mls/hr [id number] IV 01/02/25 21:00 Acetaminophen/ Hydrocodone Bitart 1 tab Q4HP PRN PO 01/02/25 21:00 Ondansetron HCl 4 mg Q4HP PRN IV 01/02/25 21:00 Docusate Sodium 100 mg BIDPRN PRN PO 01/02/25 21:00 Acetaminophen 650 mg Q6HP PRN PO 01/02/25 21:00 Exam Vital Signs Vital Signs Date Time Temp Pulse Resp B/P (MAP) Pulse Ox O2 Delivery O2 Flow Rate FiO2 01/02/25 19:30 98.0 51 12 95/63 (74) 88 98.0 01/02/25 19:30 Room Air* 0 21 General Appearance: Alert, Oriented X3, Cooperative, No acute distress HEENT: Atraumatic, PERRLA, EOMI, Mucous membr. moist/pink Respiratory: Normal air movement Cardiovascular: Normal S1, Normal S2, No murmurs, Other (Bradycardia) Abdominal: Normal bowel sounds, Soft, No tenderness, No hepatospenomegaly, No masses Extremities: No clubbing, No cyanosis, No edema, Normal pulses, No tenderness/swelling Skin: No rashes, No breakdown, No significant lesion Neuro: Normal speech, Normal tone, Sensation intact, Cranial nerves 3-12 NL, Reflexes 2+, Other (Generalized weakness) Psych/Mental Status: Mood NL, Other (Altered mental status) Labs/Xrays Labs Test 01/02/25 17:56 01/02/25 16:21 Range/Units Troponin I High Sensitivity 3 L </=34 ng/L White Blood Count 7.2 4.4-10.8 10^3/uL Red Blood Count 5.09 4.0-5.20 10^6/uL Hemoglobin 14.2 12.2-16.2 g/dL Hematocrit 42.4 36.0-46.0 % Mean Corpuscular Volume 83.4 80.0-100.0 fL Mean Corpuscular Hemoglobin 27.8 L 28.0-32.0 pg Mean Corpuscular Hemoglobin Concent 33.4 32.0-36.0 g/dL Red Cell Distribution Width 23.9 H 11.8-14.3 % Platelet Count 141 140-450 10^3/uL Mean Platelet Volume 9.2 6.9-10.8 fL Neutrophils (%) (Auto) 69.3 37.0-80.0 % Lymphocytes (%) (Auto) 17.6 10.0-50.0 % Monocytes (%) (Auto) 9.5 0.0-12.0 % Eosinophils (%) (Auto) 2.6 0.0-7.0 % Basophils (%) (Auto) 1.0 0.0-2.0 % Neutrophils # (Auto) 5.0 1.6-8.6 10 ^3/uL Lymphocytes # (Auto) 1.3 0.4-5.4 10 ^3/uL Monocytes # (Auto) 0.7 0-1.3 10 ^3/uL Eosinophils # (Auto) 0.2 0-0.8 10 ^3/uL Basophils # (Auto) 0.1 0-0.2 10 ^3/uL Nucleated Red Blood Cells 0.3 % Prothrombin Time 10.5 9.3-11.8 sec Prothrombin Time INR 0.99 0.9-1.15 Activated Partial Thromboplast Time 27.0 24.5-34.5 SEC D-Dimer, Quantitative 1.06 H 0.0-0.49 mg/L FEU Sodium Level 138 # 136-145 mmol/L Potassium Level 3.9 3.5-5.1 mmol/L Chloride Level 105 98-107 mmol/L Carbon Dioxide Level 26 20-31 mmol/L Anion Gap 7 5-15 Blood Urea Nitrogen 27 H 9-23 mg/dL Creatinine 1.70 #H 0.550-1.02 mg/dL Glomerular Filtration Rate Calc 34 >90 mL/min BUN/Creatinine Ratio 15.9 10.0-20.0 Serum Glucose 246 H 74-106 mg/dL Calcium Level 8.9 8.7-10.4 mg/dL Total Bilirubin 0.2 0.2-1.0 mg/dL Aspartate Amino Transferase (AST) 36 13-40 U/L Alanine Aminotransferase (ALT) 33 7-40 U/L Alkaline Phosphatase 60 46-116 U/L B-Type Natriuretic Peptide 34.74 0-100 pg/mL Total Protein 6.4 5.7-8.2 g/dL Albumin 4.2 3.2-4.8 g/dL PATIENT: FELICE COLEINEACCT: [id number] UNIT: [id number] : 1965 LOC: ER ROOM / BED: / AGE / SEX: 59 / F ADM STATUS: REG ER SERVICE 1540 ORDERING PHYSICIAN: NATALEE DAN PAC PROCEDURE(s): HWOCT - HEAD WITHOUT CONTRAST REASON: Altered mental status ORDER NUMBER(s): [id number], ACCESSION NUMBER(s): [id number] EXAM: CT HEAD WITHOUT CONTRAST INDICATION: Altered mental status TECHNIQUE: CT of the head without intravenous contrast. Radiation Dose Information: CT Dose: CTDI volume is 51.77 mGy. Dose-length product is 863.9 mGy*cm The dose indicators for CT are the volume Computed Tomography (CT) Dose Index (CTDIvol) and the Dose Length Product (DLP), and are measured in units of mGy and mGy-cm, respectively. These indicators are not patient dose, but values generated from the CT scanner acquisition factors. The report includes radiation exposure data for exposures received during this examination. COMPARISON: CT HEAD WITHOUT CONTRAST on DOS: 12/28/24, CT HEAD WITHOUT CONTRAST on DOS: 12/21/24, CT HEAD WITHOUT CONTRAST on DOS: 09/23/24 FINDINGS: There is no evidence of acute intracranial hemorrhage, extra-axial collection, mass effect, midline shift, herniation or hydrocephalus. The ventricles, sulci and cisterns are age appropriate. The jackson-white differentiation is intact. Patchy periventricular and subcortical white matter hypoattenuation is nonspecific but may be related to small vessel ischemic disease. The visualized paranasal sinuses and mastoid air cells are clear. The surrounding soft tissues and osseous structures are unremarkable. IMPRESSION: 1. No acute intracranial abnormality. ORDERING PHYSICIAN: NATALEE DAN PAC PROCEDURE(s): CXRP - CHEST PORTABLE REASON: Shortness of breath ORDER NUMBER(s): [id number], ACCESSION NUMBER(s): [id number] CHEST RADIOGRAPH Indication: Shortness of breath Technique: Single frontal view of the chest was obtained COMPARISON: XY CHEST PORTABLE on DOS: 12/28/24, XY CHEST XRAY 1 VIEW on DOS: 12/04/24, XY CHEST PORTABLE on DOS: 11/08/24, XY CHEST XRAY 1 VIEW on DOS: 10/17/24, XY CHEST XRAY 1 VIEW on DOS: 09/23/24 FINDINGS: Lines and Tubes: None Lungs: Congestion Pleura: No effusion. No pneumothorax. Cardiomediastinal contours: Cardiomegaly Bones: Unremarkable IMPRESSION: Increased interstital prominence. This may represent pulmonary vascular congestion and/or viral pneumonia. Clinical correlation advised. ORDERING PHYSICIAN: NOVA HERNÁNDEZ [facility] PROCEDURE(s): CTACH - CT ANGIO CHEST CONTRAST REASON: Rule out pulmonary embolism ORDER NUMBER(s): [id number], ACCESSION NUMBER(s): [id number] STUDY: CT CT ANGIO CHEST CONTRAST Indication: Rule out pulmonary embolism TECHNIQUE: Axial images were obtained through the chest with reformat images post intravenous contrast. Reconstruction processing of 3D angiographic images of the vessels was obtained. 80 mL of omnipaque 35mg/dl was administered. DLP: 2452 FINDINGS: PULMONARY ARTERIES: No evidence of pulmonary embolism. LUNGS AND PLEURA: No focal consolidations. mild pulmonary edema. No mass or nodule. No pleural effusion. No pneumothorax. MEDIASTINUM: No lymphadenopathy or mass. mild cardiomegaly. mild coronary atherosclerosis. The aorta shows no acute findings. The pulmonary trunk, and branches of the vessels in the mediastinum are within normal limits. SUPRACLAVICULAR AND AXILLARY: No abnormalities seen in these regions. No mass or significant lymphadenopathy. UPPER ABDOMEN: gallbladder is surgically removed. BONES AND SOFT TISSUES: The ribs are unremarkable. The visualized spine shows no significant acute findings. No focal bony mass lesions noted. The subcutaneous soft tissues are unremarkable. left thyroid not well seen. IMPRESSION: 1. No acute pulmonary emboli. 2. No focal consolidations. 3. mild pulmonary edema. SEPSIS Sepsis Screen Date sepsis recognized/suspect: Jan 02, 2025 Time Sepsis recognized/suspect: 1902 Recent Procedure: No On Antibiotic Therapy: No Respiratory Rate >20: No Heart Rate >90: No Temp<36 C (96.8 F) or >38.3 C: No SBP <90 or MAP <65 mmHG: No New Acute Mental Status Change: No Is the patient on CPAP, BIPAP,: No IV fluid challenge completed?: No Physician Orders Chest Portable (01/02/25 15:40) Urinalysis (01/02/25 15:40) Heplock Iv (01/02/25 15:40) Corporate Compliance Manager (01/02/25 15:40) Head Without Contrast (01/02/25 15:40) Heplock Iv (01/02/25 ) *Consult Dr. Jane Bach (01/02/25 18:22) Aspirin Tablet (01/03/25 10:00) Atorvastatin (Lipitor) (01/02/25 22:00) Famotidine Injection (Pepcid Injection) (01/02/25 22:00) Azithromycin 500mg/ 250ml (Zithromax 50 (01/03/25 10:00) Azithromycin 500mg/ 250ml (Zithromax 50 (01/02/25 20:45) Apixaban (Eliquis) (01/02/25 22:00) Glucose Blood (Accu-Chek Comfort Curve T (01/03/25 00:00) Insulin R (Human) (Insulin R) (01/03/25 00:00) Dextrose 50% Syringe (01/02/25 21:00) Allergies (01/02/25 20:50) Code Status (01/02/25 20:50) Sodium Chloride 0.9% (01/02/25 21:00) Oxygen Per Hour (01/02/25 20:50) Hydrocodone-Acet 5/325mg Tab ([place] 5/32 (01/02/25 21:00) Ondansetron Hcl (Zofran) (01/02/25 21:00) Docusate Sodium Capsule (Colace Capsule) (01/02/25 21:00) Complete Blood Count (01/03/25 04:00) Comprehensive Metabolic Panel (01/03/25 04:00) Condition: Serious (01/02/25 20:50) Acetaminophen Tablet (Tylenol Tablet) (01/02/25 21:00) Bedrest With Bathroom Privileg (01/02/25 20:50) Sequential Compression Device (01/02/25 ) Consistent Carb(Ccho)Diabetes (01/03/25 Breakfast) Ct Angio Chest Contrast (01/02/25 20:50) Admit (01/02/25 21:38) Nitroglycerin Sublingual (Ntrostat Subli (01/02/25 21:45) Morphine Sulfate Injection (01/02/25 21:45) Stat Ekg For Chest Pain (01/02/25 21:38) Notify Md Of Changes From Base (01/02/25 21:38) Sausage Cooker For 24 Hours (01/02/25 21:38) Emergency Dysrhythmia Protocol (01/02/25 21:38) Rhythm Strips Once Every Shift (01/02/25 21:38) Oxygen By Nasal Cannula (01/02/25 21:38) Vital Signs Date Time Temp Pulse Resp B/P (MAP) Pulse Ox O2 Delivery O2 Flow Rate FiO2 01/02/25 19:30 98.0 51 12 95/63 (74) 88 98.0 01/02/25 19:30 51 12 88 Room Air* 0 21 01/02/25 18:49 97 Nasal Cannula* 2 28 01/02/25 18:00 48 10 107/70 (82) 92 01/02/25 16:21 52 52 94 Room Air* 0 21 01/02/25 15:38 97.5 92 14 98/52 (67) 92 97.5 01/02/25 15:30 98.4 53 55 100/62 100 98.4 01/02/25 15:13 52 Laboratory Tests Test 01/02/25 16:21 White Blood Count 7.2 10^3/uL (4.4-10.8) Medications Medications Dose Ordered Sig/Uyen Route Start Time Stop Time Status Last Admin Dose Admin Acetaminophen/ Hydrocodone Bitart 1 tab ONCE ONCE PO 01/02/25 15:45 01/02/25 15:46 DC 01/02/25 16:26 1 TAB Aspirin 325 mg ONCE ONCE PO 01/02/25 15:45 01/02/25 15:46 DC 01/02/25 16:26 325 MG Assessment/Plan Assessment/Plan Hypotension Bradycardia Altered mental status Acute renal injury Elevated d-dimer Diabetes mellitus with hyperglycemia Pneumonia, unspecified organism Plan 1. Admit to telemetry unit 2. Breathing treatment 3. Pain control management 4. IV antibiotic management 5. Management of fluids and electrolytes 6. Consultation for Cardiology/neurology 7. Diagnostic test CT angiography 8. DVT prophylaxis-on aspirin 9. Repeat labs CBC, CMP in a.m. 10. Home medication reviewed and reconciled 11. Continue with current medical management 12. Treatment plan discussed with patient and RN. Patient verbalized understanding. Plan discussed with: Patient, Other (RN) My Orders Orders - NOVA HERNÁNDEZ DNP Procedure Category Date Status Time Aspirin Tablet PHA 01/03/25 In Process 10:00 Atorvastatin (Lipitor) PHA 01/02/25 In Process 22:00 Famotidine Injection PHA 01/02/25 In Process (Pepcid Injection) 22:00 Azithromycin 500mg/ PHA 01/03/25 In Process 250ml (Zithromax 50 10:00 Azithromycin 500mg/ PHA 01/02/25 In Process 250ml (Zithromax 50 20:45 Apixaban (Eliquis) PHA 01/02/25 In Process 22:00 Glucose Blood PHA 01/03/25 In Process (Accu-Chek Comfort 00:00 Insulin R (Human) PHA 01/03/25 In Process (Insulin R) 00:00 Dextrose 50% Syringe PHA 01/02/25 In Process 21:00 Allergies SANJU 01/02/25 Transmitted 20:50 Code Status CODE 01/02/25 Transmitted 20:50 Sodium Chloride 0.9% PHA 01/02/25 In Process 21:00 Oxygen Per Hour RT 01/02/25 Transmitted 20:50 Hydrocodone-Acet PHA 01/02/25 In Process 5/325mg Tab ([place] 21:00 Ondansetron Hcl PHA 01/02/25 In Process (Zofran) 21:00 Docusate Sodium PHA 01/02/25 In Process Capsule (Colace 21:00 Complete Blood Count LAB 01/03/25 Verified 04:00 Comprehensive LAB 01/03/25 Verified Metabolic Panel 04:00 Condition: Serious SANJU 01/02/25 In Process 20:50 Acetaminophen Tablet PHA 01/02/25 In Process (Tylenol Tablet) 21:00 Bedrest With Bathroom SANJU 01/02/25 In Process Privileg 20:50 Sequential SANJU 01/02/25 In Process Compression Device Consistent DIET 01/03/25 Transmitted Carb(Ccho)Diabetes Breakfast Ct Angio Chest CT 01/02/25 Logged Contrast 20:50 Admit ADMIT 01/02/25 Transmitted 21:38 Nitroglycerin PHA 01/02/25 Logged Sublingual (Ntrostat 21:45 Morphine Sulfate PHA 01/02/25 Logged Injection 21:45 Stat Ekg For Chest SANJU 01/02/25 In Process Pain 21:38 Notify Of Changes SANJU 01/02/25 In Process From Base 21:38 Sausage Cooker For [facility] 01/02/25 In Process 24 Hours 21:38 Emergency Dysrhythmia [facility] 01/02/25 In Process Protocol 21:38 Rhythm Strips Once [facility] 01/02/25 In Process Every Shift 21:38 Oxygen By Nasal RT 01/02/25 Transmitted Cannula 21:38 Problem List: (1) Hypotension (2) Bradycardia (3) Altered mental status (4) Elevated d-dimer (5) Acute renal injury (6) Diabetes mellitus with hyperglycemia (7) Pneumonia, unspecified organism Date of Service: Jan 02, 2025 Billing Provider: NOVA HERNÁNDEZ DNP Common Visit Codes: [id number] INP/OBS CARE (HIGH) NOVA HERNNÁDEZ DNP Jan 02, 2025 21:49
[2025-01-02] MEDS: AZITHROMYCIN 500MG/ 250ML 250 ML IV ONE (22:28)
[2025-01-02] MEDS: APIXABAN 5 MG TAB PO SCH (22:37)
[2025-01-02] MEDS: ATORVASTATIN 20 MG TAB PO SCH (22:37)
[2025-01-02] MEDS: FAMOTIDINE (10MG/ML) 2ML VL IV SCH (22:45)
[2025-01-02] MEDS: IOHEXOL 350 MG/ML 100ML IJ ONE (22:45)
[2025-01-02] MEDS: SODIUM CHLORIDE 0.9% 1,000 ML IV SCH (22:47)
--- NOTE | 2025-01-02 23:12 | DVH ---
STUDY: CT CT ANGIO CHEST CONTRAST Indication: Rule out pulmonary embolism TECHNIQUE: Axial images were obtained through the chest with reformat images post intravenous contr ast. Reconstruction processing of 3D angiographic images of the vessels was obtained. 80 mL of omnipaque 35mg/dl was administered. DLP: 2452 FINDINGS: PULMONARY ARTERIES: No evidence of pulmonary embolism. LUNGS AND PLEURA: No focal consolidations. mild pulmonary edema. No mass or nodule. No pleural effusion. No pneumothora x. MEDIASTINUM: No lymphadenopathy or mass. mild cardiomegaly. mild coronary atherosclerosis. The aorta shows no acute findings. The pulmonary trunk, and branches of the vessels in the mediastinu m are within normal limits. SUPRACLAVICULAR AND AXILLARY: No abnormalities seen in these regions. No mass or significant lymphadenopathy. UPPER ABDOMEN: gallbladder is surgically removed. BONES AND SOFT TISSUES: The ribs are unremarkable. The visualized spine shows no significant acute findings. No focal bony mass lesions noted. The subcutaneous soft tissues are unremarkable. left thyroid not well seen. IMPRESSION: 1. No acute pulmonary emboli. 2. No focal consolidations. 3. mild pulmonary edema.
[2025-01-02 23:33] VITALS: BP 135/75; PULSE 47; RESP 16; TEMP 97.9; O2SAT 96
[2025-01-02 23:34] VITALS: BP 135/75; PULSE 47; RESP 16; TEMP 97.9; O2SAT 96
[2025-01-03] VITALS (9 sets, daily range): BP systolic 106–154; BP diastolic 50–84; PULSE 46–56; RESP 16–18; TEMP 96.4–98; O2SAT 95–99
[2025-01-03 00:33] LABS: Urine Protein, UAD Negative (Negative)
[2025-01-03] MEDS: ACCU-CHEK COMFORT CURVE STRIP VI SCH (00:42)
[2025-01-03] MEDS: InsuLIN REG 1unit/0.01ml Soln (100units/ml) SC SCH (00:48)
[2025-01-03 06:50] LABS: Hematocrit 39.2 % (36.0-46.0); Hemoglobin 13.2 g/dL (12.2-16.2); Mean Corpuscular Hemoglobin 28.1 pg (28.0-32.0); Mean Corpuscular Volume 83.3 fL (80.0-100.0); Nucleated Red Blood Cells % 0.2 %
[2025-01-03 07:09] LABS: Alanine Aminotransferase 35 U/L (7-40); Alkaline Phosphatase 55 U/L (46-116); Anion Gap 6 (5-15); BUN/Creatinine Ratio 13.9 (10.0-20.0); Blood Urea Nitrogen 22 mg/dL (9-23); Calcium 9.0 mg/dL (8.7-10.4); Carbon Dioxide 28 mmol/L (20-31); Chloride 106 mmol/L (98-107); Potassium 3.9 mmol/L (3.5-5.1); Sodium 140 mmol/L (136-145); Total Protein 6.6 g/dL (5.7-8.2)
[2025-01-03 07:10] LABS: Albumin 4.1 g/dL (3.2-4.8)
[2025-01-03 07:15] LABS: Bilirubin, Total 0.3 mg/dL (0.2-1.0); Glucose 152 mg/dL (74-106)
[2025-01-03] MEDS: AZITHROMYCIN 500MG/ 250ML 250 ML IV SCH (08:50)
--- NOTE | 2025-01-03 10:24 | DVHPN2 ---
Reviewed: Care Plan, H&P, Labs, Medications, Previous Orders, Radiology Changes from previous H/P or p: No Changes Eyes: No Pain, No Vision change, No Conjunctivae inflammation, No Eyelid inflammation, No Other, No Redness ENT: No Ear pain, No Ear discharge, No Nose pain, No Nose discharge, No Nose congestion, No Mouth pain, No Mouth swelling, No Throat pain, No Throat swelling, No Other Cardiovascular: Chest Pain; No Palpitations, No Orthopnea, No Paroxysmal Noc. Dyspnea, No Edema, No Lt Headedness, No Other Respiratory: No Cough, No Dry, No Shortness of breath, No SOB with excertion, No Wheezing, No Hemoptysis, No Pleuritic Pain, No Sputum, No Other Gastrointestinal: No Nausea, No Vomiting, No Abdominal Pain, No Diarrhea, No Constipation, No Melena, No Hematochezia, No Other Genitourinary: No Dysuria, No Frequency, No Incontinence, No Hematuria, No Retention, No Other Musculoskeletal: No other, No neck pain, No shoulder pain, No arm pain, No back pain, No hand pain, No leg pain, No foot pain Skin: No Rash, No Lesions, No Jaundice, No Bruising, No Other Objective Vitals Vital Signs Date Time Temp Pulse Resp B/P (MAP) Pulse Ox O2 Delivery O2 Flow Rate FiO2 01/03/25 08:42 96.4 46 18 138/69 (92) 95 96.4 01/03/25 08:00 Nasal Cannula* 2 28 Intake/Output Intake and Output 01/03/25 07:00 Intake Total 800 ml Balance 800 ml Intake Oral 800 ml Medications Current Medications Medications Dose Ordered Sig/Uyen Route Start Time Stop Time Status Last Admin Dose Admin Aspirin 81 mg DAILY PO 01/03/25 10:00 01/03/25 08:52 81 MG Atorvastatin Calcium 20 mg HS PO 01/02/25 22:00 01/02/25 22:37 20 MG Famotidine 20 mg Q12HR IV 01/02/25 22:00 01/03/25 08:50 20 MG Azithromycin 250 ml @ 125 mls/hr DAILY IV 01/03/25 10:00 01/03/25 08:50 125 MLS/HR Apixaban 5 mg BID PO 01/02/25 22:00 01/03/25 08:50 5 MG Diagnostic Test (Pha) 1 strip IQ4HR 01/03/25 00:00 01/03/25 08:00 1 STRIP Insulin Human Regular IQ4HR SC 01/03/25 00:00 01/03/25 08:50 2 UNITS Dextrose 50 ml UD PRN IV 01/02/25 21:00 Sodium Chloride 1,000 ml @ 60 mls/hr [id number] IV 01/02/25 21:00 01/03/25 09:11 60 MLS/HR Acetaminophen/ Hydrocodone Bitart 1 tab Q4HP PRN PO 01/02/25 21:00 Ondansetron HCl 4 mg Q4HP PRN IV 01/02/25 21:00 Docusate Sodium 100 mg BIDPRN PRN PO 01/02/25 21:00 Acetaminophen 650 mg Q6HP PRN PO 01/02/25 21:00 Nitroglycerin 0.4 mg Q5MINP PRN SL 01/02/25 21:45 Morphine Sulfate 2 mg Q30M PRN IV 01/02/25 21:45 Laboratory Results Laboratory Tests 01/03/25 06:10 Chemistry Test 01/02/25 16:21 01/03/25 06:10 Albumin 4.2 g/dL (3.2-4.8) 4.1 g/dL (3.2-4.8) Calcium Level 8.9 mg/dL (8.7-10.4) 9.0 mg/dL (8.7-10.4) Total Protein 6.4 g/dL (5.7-8.2) 6.6 g/dL (5.7-8.2) Coagulation Test 01/02/25 16: Prothrombin Time 10.5 sec (9.3-11.8) Prothrombin Time INR 0.99 (0.9-1.15) Activated Partial Thromboplast Time 27.0 SEC (24.5-34.5) D-Dimer, Quantitative 1.06 mg/L FEU (0.0-0.49) H Cardiac Markers Test 01/02/25 16:21 B-Type Natriuretic Peptide 34.74 pg/mL (0-100) LFT Test 01/02/25 16:21 01/03/25 06:10 Alanine Aminotransferase (ALT) 33 U/L (7-40) 35 U/L (7-40) Alkaline Phosphatase 60 U/L (46-116) 55 U/L (46-116) Aspartate Amino Transferase (AST) 36 U/L (13-40) 64 U/L (13-40) H Total Bilirubin 0.2 mg/dL (0.2-1.0) 0.3 mg/dL (0.2-1.0) Urinalysis Test 01/03/25 00:00 Urine Color Light-yellow (Yellow) Urine Clarity Turbid (Clear) H Urine pH 5.5 (5.0-9.0) Urine Specific [place] 1.040 (1.001-1.035) Urine Protein Negative (Negative) Urine Ketones Negative (Negative) Urine Blood Negative /uL (Negative) Urine Nitrite Negative (Negative) Urine Bilirubin Negative (Negative) Urine Urobilinogen Normal mg/dL (Negative) Urine Leukocyte Esterase Trace /uL (Negative) Urine RBC 2 /hpf (0 - 4) Urine Microscopic WBC 11 /HPF (0-5) H Urine Squamous Epithelial Cells Mod /hpf (<5) Urine Bacteria Few /hpf (None Seen) H Urine Glucose 4+ mg/dL (Normal) H Labs and/or images reviewed: Labs reviewed by me, Image(s) reviewed by me Assessment/Plan Assessment/Plan Acute chest pain troponin negative, cardiology consult for Dr. Chaves Possible community-acquired pneumonia Gram-positive versus Gram-negative Azithromycin, Thu test and rapid flu test pending Acute Hypotension: IV fluids Bradycardia Altered mental status Acute kidney injury Elevated d-dimer PE ruled out Diabetes mellitus with hyperglycemia Pneumonia, unspecified organism AFib on Eliquis Acute on chronic CHF exacerbation History of CVA Diabetes HIV Hypertension History of seizures Time spent 70 minutes Advanced care planning time 20 minutes Patient is full code Plan discussed with: Patient Date of Service: Jan 03, 2025 Billing Provider: VERITO MORENO MD Common Visit Codes: [id number] CARE 30-74 MIN VERITO MORENO MD Jan 03, 2025 10:24
--- NOTE | 2025-01-03 11:54 | DVHINCON2 ---
Date Seen: Jan 03, 2025 Referring Physician BENJIE Ordaz Reason for Consultation Bradycardia History of Present Illness A 59-year-old female with history of paroxysmal AFib on Eliquis (CHADS-VASc score 5), CHF with preserved EF, prior PE, orthostatic hypotension, CKD, DM two, hypertension, dyslipidemia, HIV, tobacco use, and morbid obesity, presents to the ED via EMS for evaluation of chest pain. The patient reports that yesterday she developed slurred speech followed by sharp vimug-elw-zvsw sided chest pain, worse with exertion and deep inspiration. In the ED, she was noted to have hypotension, acute renal failure, pneumonia, elevated D-dimer, and bradycardia. Initial 12 lead ECG revealed sinus bradycardia without acute ischemic changes. Serial troponins were negative. CT chest showed pulmonary edema, negative for PE. Overnight telemetry reviewed: Sinus bradycardia in 40-50s, no pauses, av blocks, or tachyarrhythmias noted. Patient was admitted last week for near- syncope and bradycardia, at which time she was advised outpatient cardiology follow-up with event monitoring to rule out tachy-ray syndrome. Recent echocardiogram: EF 55-60%, Mild LVH, diastolic dysfunction. Past Medical History As stated in HPI Past Surgical History Denies Family History: Cardiovascular disease G8 FATHER Diabetes mellitus G8 SISTER Suicide G8 BROTHER Family History Reviewed, non-contributory to the management of this case. Social History The patient lives at home, denies smoking, alcohol or illicit drugs abuse. Allergies: Coded Allergies: Loperamide (Verified Allergy, Severe, 08/13/23) Nystatin (Verified Allergy, Severe, 08/13/23) Penicillins (Verified Allergy, Severe, 08/13/23) Diphenhydramine (Verified Allergy, Unknown, 09/23/24) Home Meds Active Scripts Furosemide (Lasix) 20 Mg Tb, 1 TAB PO DAILY for 30 Days, #30 TAB 1 Refill Prov:LISA OAKES RESIDENT 12/30/24 Amiodarone HCl (Amiodarone HCl) 200 Mg Tab, 100 MG PO BID for 30 Days, #30 TAB please hold if heart rate remains below 50 / min Prov:LISA OAKES RESIDENT 12/30/24 Insulin Glargine (Lantus) 100 Unit/Ml Inj, 15 UNITS SC BID@0700,2200 for 30 Days, #90 INJ 1 Refill Prov:BETHANY JEFF DO 11/17/24 Reported Medications Insulin Glargine (Basaglar Kwikpen) 100 Unit/Ml Inj, 100 UNITS SC BID for 30 Days, #60 08/18/24 Insulin Lispro (Insulin Lispro Kwikpen) 100 Unit/Ml Inj, 10 UNITS SC DAILY for 100 Days, #15 08/18/24 Cetirizine HCl (Cetirizine Hydrochloride) 10 Mg Tab, 1 TAB PO DAILY for 90 Days, #90 08/18/24 Dapagliflozin Propanediol (Dapagliflozin Propanediol) 5 Mg Tab, 1 TAB PO DAILY for 100 Days, #100 08/18/24 Ferrous Sulfate (Ferosul) 325 Mg Tab, 1 TAB PO DAILY for anemia 06/08/24 Sitagliptin Phosphate (Januvia) 100 Mg Tab, 1 DAILY for 90 Days, #90 06/08/24 Fenofibrate (FENOFIBRATE) 145 Mg Tab, 1 TAB PO DAILY for 90 Days, #90 06/06/24 Cyclobenzaprine HCl (Cyclobenzaprine Hydrochlo) 10 Mg Tab, 1 TAB PO BID PRN for PAIN FOR MUSCLE SPASMS for 30 Days, #15 08/13/23 Famotidine (Famotidine) 20 Mg Tab, 1 TAB PO BID PRN for ACID REFLUX AND ABDOMINA L PAIN for 90 Days, #180 08/13/23 Hydrocodone-Acetaminophen (Hydrocodone/Acetaminophen 5-325 mg) 1 Tab Tab, 2 TAB PO BID 08/13/23 Pregabalin (Pregabalin) 200 Mg Cap, 1 CAP PO TID for 30 Days, #90 08/13/23 Apixaban Base (ELIQUIS) 5 Mg Tab, 1 TAB PO BID for 45 Days, #90 08/13/23 Aspirin (Aspirin) 81 Mg Chw, 1 TAB PO DAILY for 90 Days, #90 08/13/23 Atorvastatin Calcium (ATORVASTATIN CALCIUM) 40 Mg Tab, 1 TAB PO DAILY for 90 Days, #90 08/13/23 Discontinued Reported Medications Amiodarone HCl (Amiodarone HCl) 200 Mg Tab, 1 TAB PO BID for 90 Days, #180 08/18/24 Metoprolol Tartrate (Metoprolol Tartrate) 25 Mg Tab, 25 MG PO DAILY for 90 Days, #90 06/06/24 Potassium Chloride (POTASSIUM CHLORIDE CR) 10 Meq Tb, 1 TAB PO DAILY for 30 Days, #30 06/06/24 Furosemide (Furosemide) 40 Mg Tab, 1 TAB PO DAILY for 90 Days, #90 08/13/23 Lisinopril (Lisinopril) 2.5 Mg Tab, 1 TAB PO DAILY for 90 Days, #90 08/13/23 Current Medications Current Medications Medications (Trade) Dose Ordered Sig/Uyen Route PRN Reason Start Time Stop Time Status Last Admin Aspirin 81 mg DAILY PO 01/03/25 10:00 01/03/25 08:52 Atorvastatin Calcium (Lipitor) 20 mg HS PO 01/02/25 22:00 01/02/25 22:37 Famotidine (Pepcid Injection) 20 mg Q12HR IV 01/02/25 22:00 01/03/25 08:50 Azithromycin 250 ml @ 125 mls/hr DAILY IV 01/03/25 10:00 01/03/25 08:50 Apixaban (Eliquis) 5 mg BID PO 01/02/25 22:00 01/03/25 08:50 Diagnostic Test (Pha) (Accu-Chek Comfort Curve T) 1 strip IQ4HR 01/03/25 00:00 01/03/25 08:00 Insulin Human Regular (InsuLIN R) IQ4HR SC 01/03/25 00:00 01/03/25 08:50 Dextrose 50 ml UD PRN IV Blood Sugar LESS THAN 60 01/02/25 21:00 Sodium Chloride 1,000 ml @ 60 mls/hr [id number] IV 01/02/25 21:00 01/03/25 09:11 Acetaminophen/ Hydrocodone Bitart ([place] 5/325MG Tab) 1 tab Q4HP PRN PO MODERATE PAIN (4-6 PAIN SCALE) 01/02/25 21:00 Ondansetron HCl (Zofran) 4 mg Q4HP PRN IV NAUSEA / VOMITING 01/02/25 21:00 Docusate Sodium (Colace Capsule) 100 mg BIDPRN PRN PO FOR CONSTIPATION 01/02/25 21:00 Acetaminophen (Tylenol Tablet) 650 mg Q6HP PRN PO PAIN SCALE 1-3 OR TEMP>100.4 01/02/25 21:00 Nitroglycerin (Ntrostat Sublingual) 0.4 mg Q5MINP PRN SL FOR CHEST PAIN 01/02/25 21:45 Morphine Sulfate 2 mg Q30M PRN IV FOR CHEST PAIN 01/02/25 21:45 Review of Systems Constitutional: No symptom reported Ears, Nose, & Throat: No symptom reported Eyes: No symptom reported Neurological: Slurred speech reported yesterday, no focal weakness Pulmonary/Respiratory: No symptom reported Cardiovascular: Reports chest pain, denies palpitation or syncope Gastrointestinal: No symptom reported Genitourinary: No symptom reported Musculoskeletal: No symptom reported Skin: No symptom reported Psychiatric: No symptom reported Endocrine: No symptom reported Hematologic/Lymphatic: No symptom reported Vital Signs Vital Signs Date Time Temp Pulse Resp B/P (MAP) Pulse Ox O2 Delivery O2 Flow Rate FiO2 01/03/25 08:42 96.4 46 18 138/69 (92) 95 96.4 01/03/25 08:00 Nasal Cannula* 2 28 Physical Exam INITIAL VITAL SIGNS: Reviewed by me GENERAL: Alert and interactive. No acute distress. HEAD: Head is normocephalic and atraumatic. EYES: EOMI, PERRL. No scleral icterus. No conjunctival injection. ENT: Moist mucous membranes. NECK: Supple, No masses, Full range of motion. RESPIRATORY: Diminished breath sounds, scattered crackles consistent with pulmonary edema CV: Bradycardic, regular rhythm, no murmurs. No edema GI/: Active bowel sounds, soft, nondistended, nontender. No guarding. No rebound. No masses. No CVA tenderness. INTEGUMENTARY: Warm and dry. No obvious rashes. NEUROLOGIC: Alert and oriented. Face is symmetric. Speech is normal. Moves all extremities equally. Labs/Diagnostic Data Labs Test 01/03/25 08:38 01/03/25 06:10 01/03/25 00:00 01/02/25 17:56 Range/Units POC Glucose 148 H 70-106 mg/dl White Blood Count 7.0 4.4-10.8 10^3/uL Red Blood Count 4.70 4.0-5.20 10^6/uL Hemoglobin 13.2 12.2-16.2 g/dL Hematocrit 39.2 36.0-46.0 % Mean Corpuscular Volume 83.3 80.0-100.0 fL Mean Corpuscular Hemoglobin 28.1 28.0-32.0 pg Mean Corpuscular Hemoglobin Concent 33.7 32.0-36.0 g/dL Red Cell Distribution Width 23.2 H 11.8-14.3 % Platelet Count 116 L 140-450 10^3/uL Mean Platelet Volume 9.9 6.9-10.8 fL Neutrophils (%) (Auto) 72.4 37.0-80.0 % Lymphocytes (%) (Auto) 11.8 10.0-50.0 % Monocytes (%) (Auto) 12.1 H 0.0-12.0 % Eosinophils (%) (Auto) 2.6 0.0-7.0 % Basophils (%) (Auto) 1.1 0.0-2.0 % Neutrophils # (Auto) 5.0 1.6-8.6 10 ^3/uL Lymphocytes # (Auto) 0.8 0.4-5.4 10 ^3/uL Monocytes # (Auto) 0.8 0-1.3 10 ^3/uL Eosinophils # (Auto) 0.2 0-0.8 10 ^3/uL Basophils # (Auto) 0.1 0-0.2 10 ^3/uL Nucleated Red Blood Cells 0.2 % Sodium Level 140 136-145 mmol/L Potassium Level 3.9 3.5-5.1 mmol/L Chloride Level 106 98-107 mmol/L Carbon Dioxide Level 28 20-31 mmol/L Anion Gap 6 5-15 Blood Urea Nitrogen 22 9-23 mg/dL Creatinine 1.58 H 0.550-1.02 mg/dL Glomerular Filtration Rate Calc 37 >90 mL/min BUN/Creatinine Ratio 13.9 10.0-20.0 Serum Glucose 152 H 74-106 mg/dL Calcium Level 9.0 8.7-10.4 mg/dL Total Bilirubin 0.3 0.2-1.0 mg/dL Aspartate Amino Transferase (AST) 64 H 13-40 U/L Alanine Aminotransferase (ALT) 35 7-40 U/L Alkaline Phosphatase 55 46-116 U/L Total Protein 6.6 5.7-8.2 g/dL Albumin 4.1 3.2-4.8 g/dL Urine Color Light-yellow Yellow Urine Clarity Turbid H Clear Urine pH 5.5 5.0-9.0 Urine Specific [place] 1.040 H 1.001-1.035 Urine Protein Negative Negative Urine Ketones Negative Negative Urine Blood Negative Negative /uL Urine Nitrite Negative Negative Urine Bilirubin Negative Negative Urine Urobilinogen Normal Negative mg/dL Urine Leukocyte Esterase Trace Negative /uL Urine RBC 2 0 - 4 /hpf Urine Microscopic WBC 11 H 0-5 /HPF Urine Squamous Epithelial Cells Mod <5 /hpf Urine Bacteria Few H None Seen /hpf Urine Glucose 4+ H Normal mg/dL Troponin I High Sensitivity 3 L </=34 ng/L Test 01/02/25 16:21 Range/Units Prothrombin Time 10.5 9.3-11.8 sec Prothrombin Time INR 0.99 0.9-1.15 Activated Partial Thromboplast Time 27.0 24.5-34.5 SEC D-Dimer, Quantitative 1.06 H 0.0-0.49 mg/L FEU B-Type Natriuretic Peptide 34.74 0-100 pg/mL PROCEDURE(s): CTACH - CT ANGIO CHEST CONTRAST REASON: Rule out pulmonary embolism ORDER NUMBER(s): [id number], ACCESSION NUMBER(s): [id number] STUDY: CT CT ANGIO CHEST CONTRAST Indication: Rule out pulmonary embolism TECHNIQUE: Axial images were obtained through the chest with reformat images post intravenous contrast. Reconstruction processing of 3D angiographic images of the vessels was obtained. 80 mL of omnipaque 35mg/dl was administered. DLP: [id number] FINDINGS: PULMONARY ARTERIES: No evidence of pulmonary embolism. LUNGS AND PLEURA: No focal consolidations. mild pulmonary edema. No mass or nodule. No pleural effusion. No pneumothorax. MEDIASTINUM: No lymphadenopathy or mass. mild cardiomegaly. mild coronary atherosclerosis. The aorta shows no acute findings. The pulmonary trunk, and branches of the vessels in the mediastinum are within normal limits. SUPRACLAVICULAR AND AXILLARY: No abnormalities seen in these regions. No mass or significant lymphadenopathy. UPPER ABDOMEN: gallbladder is surgically removed. BONES AND SOFT TISSUES: The ribs are unremarkable. The visualized spine shows no significant acute findings. No focal bony mass lesions noted. The subcutaneous soft tissues are unremarkable. left thyroid not well seen. IMPRESSION: 1. No acute pulmonary emboli. 2. No focal consolidations. 3. mild pulmonary edema. Assessment Sinus bradycardia, possible tachy-ray syndrome Paroxysmal atrial fibrillation with intermittent slow ventricular rate (on Eliquis therapy) Chest pain, to rule out CAD Chronic compensated HRpEF Mild Pulmonary edema Elevated DDimer- PE ruled out TOÑA on CKD Hx of orthostatic hypotension Hypertension Hyperlipidemia History of pulmonary embolism Insulin-dependent type 2 diabetes mellitus + HIV status Tobacco use Morbid obesity Plan/Recommendation (Dr. Chaves ): Multiple comorbidities admitted for hypotension, TOÑA, pneumonia, pulmonary edema, and sinus bradycardia. No evidence of acute coronary syndrome, negative troponins, no acute ischemia on ECG, but given episodes of Chest pain with comorbidities, we will schedule the patient for adenosine stress test . Telemetry shows persistent sinus bradycardia 40-50s without pauses or AV block. Given history of paroxysmal AFib, prior near-syncope, and current bradycardia, possible tachy-ray syndrome remains a concern. Recent echo with preserved EF. * Continue to monitor on telemetry * Adenosine stress test * No indication for pacing at this time as patient is hemodynamically stable and no significant pauses/blocks noted * Avoid AV larissa blocking agents given bradycardia * Ordered magnesium. Monitor electrolytes and replete as needed * Continue with anticoagulation with Eliquis (CHADS-VASc score 5, HAS-BLED score 1) * Arrange outpatient event monitoring to evaluate for tachy-ray syndrome once acute illness resolves * Continue management of sepsis/pneumonia per primary team * Optimize comorbid conditions * Cardiology to follow and Close cardiac monitoring This medical document was created using an electronic medical record system with voice recognition software and computerized dictation system. Although this document has been carefully reviewed, there might still be some phonetic and typographical errors. Occasional wrong-word or ``sound-alike substitutions may have occurred due to the inherent limitations of voice recognition software. These areas are purely typographical due to imperfections of the software programs and do not reflect any compromise in the patient's medical care. Please read the chart carefully and recognize, using context, where these substitutions have occurred. Plan discussed with: Patient Plan discussed with: Patient NYHA Physical activity limitations: Class1(None)absent sob, Date of Service: Jan 03, 2025 Billing Provider: DARRELL CHAVES MD Cardiology Common Codes: CONSULT ONLY Cardiology Consultation Codes: [id number] CONSULT <45MIN [facility] Jan 03, 2025 11:54
[2025-01-03 13:00] LABS: COVID19 ANTIGEN SOFIA FIA NEGATIVE (NEGATIVE)
[2025-01-03] MEDS: HYDROcodone-ACET 5/325MG TAB PO PRN (16:23)
--- NOTE | 2025-01-03 23:26 | DVHINCON2 ---
Date Seen: Jan 03, 2025 Referring Physician BENJIE Ordaz Reason for Consultation Bradycardia History of Present Illness This is a 59-year-old female with a history of paroxysmal AFib on Eliquis (CHADS-VASc score 5), CHF with preserved EF, prior PE, orthostatic hypotension, CKD, DM two, hypertension, dyslipidemia, HIV, tobacco use, and morbid obesity, presents to the ED via EMS for a complaint of chest pain. The patient reports that yesterday she developed slurred speech followed by sharp flonx-kfu-rtwq sided chest pain, worse with exertion and deep inspiration. In the ED, she was noted to have hypotension, acute renal failure, pneumonia, elevated D-dimer, and bradycardia. Initial 12 lead ECG revealed sinus bradycardia without acute ischemic changes. Serial troponins were negative. CT chest showed pulmonary edema, negative for PE. Overnight telemetry reviewed: sinus bradycardia in 40- 50s, no pauses, av blocks, or tachyarrhythmias noted. Patient was admitted last week for near-syncope and bradycardia, at which time she was advised outpatient cardiology follow-up with event monitoring to rule out tachy-ray syndrome. Recent echocardiogram: EF 55-60%, Mild LVH, diastolic dysfunction. Patient was admitted to the hospital. I am asked to consult on this patient. Past Medical History As stated in HPI Past Surgical History Denies Family History: Cardiovascular disease G8 FATHER Diabetes mellitus G8 SISTER Suicide G8 BROTHER Allergies: Coded Allergies: Loperamide (Verified Allergy, Severe, 08/13/23) Nystatin (Verified Allergy, Severe, 08/13/23) Penicillins (Verified Allergy, Severe, 08/13/23) Diphenhydramine (Verified Allergy, Unknown, 09/23/24) Home Meds Active Scripts Furosemide (Lasix) 20 Mg Tb, 1 TAB PO DAILY for 30 Days, #30 TAB 1 Refill Prov:LISA OAKES RESIDENT 12/30/24 Amiodarone HCl (Amiodarone HCl) 200 Mg Tab, 100 MG PO BID for 30 Days, #30 TAB please hold if heart rate remains below 50 / min Prov:LISA OAKES RESIDENT 12/30/24 Insulin Glargine (Lantus) 100 Unit/Ml Inj, 15 UNITS SC BID@0700,2200 for 30 Days, #90 INJ 1 Refill Prov:BETHANY JEFF DO 11/17/24 Reported Medications Insulin Glargine (Basaglar Kwikpen) 100 Unit/Ml Inj, 100 UNITS SC BID for 30 Days, #60 08/18/24 Insulin Lispro (Insulin Lispro Kwikpen) 100 Unit/Ml Inj, 10 UNITS SC DAILY for 100 Days, #15 08/18/24 Cetirizine HCl (Cetirizine Hydrochloride) 10 Mg Tab, 1 TAB PO DAILY for 90 Days, #90 08/18/24 Dapagliflozin Propanediol (Dapagliflozin Propanediol) 5 Mg Tab, 1 TAB PO DAILY for 100 Days, #100 08/18/24 Ferrous Sulfate (Ferosul) 325 Mg Tab, 1 TAB PO DAILY for anemia 06/08/24 Sitagliptin Phosphate (Januvia) 100 Mg Tab, 1 DAILY for 90 Days, #90 06/08/24 Fenofibrate (FENOFIBRATE) 145 Mg Tab, 1 TAB PO DAILY for 90 Days, #90 06/06/24 Cyclobenzaprine HCl (Cyclobenzaprine Hydrochlo) 10 Mg Tab, 1 TAB PO BID PRN for PAIN FOR MUSCLE SPASMS for 30 Days, #15 08/13/23 Famotidine (Famotidine) 20 Mg Tab, 1 TAB PO BID PRN for ACID REFLUX AND ABDOMIN AL PAIN for 90 Days, #180 08/13/23 Hydrocodone-Acetaminophen (Hydrocodone/Acetaminophen 5-325 mg) 1 Tab Tab, 2 TAB PO BID 08/13/23 Pregabalin (Pregabalin) 200 Mg Cap, 1 CAP PO TID for 30 Days, #90 08/13/23 Apixaban Base (ELIQUIS) 5 Mg Tab, 1 TAB PO BID for 45 Days, #90 08/13/23 Aspirin (Aspirin) 81 Mg Chw, 1 TAB PO DAILY for 90 Days, #90 08/13/23 Atorvastatin Calcium (ATORVASTATIN CALCIUM) 40 Mg Tab, 1 TAB PO DAILY for 90 Days, #90 08/13/23 Discontinued Reported Medications Amiodarone HCl (Amiodarone HCl) 200 Mg Tab, 1 TAB PO BID for 90 Days, #180 08/18/24 Metoprolol Tartrate (Metoprolol Tartrate) 25 Mg Tab, 25 MG PO DAILY for 90 Days, #90 06/06/24 Potassium Chloride (POTASSIUM CHLORIDE CR) 10 Meq Tb, 1 TAB PO DAILY for 30 Days, #30 06/06/24 Furosemide (Furosemide) 40 Mg Tab, 1 TAB PO DAILY for 90 Days, #90 08/13/23 Lisinopril (Lisinopril) 2.5 Mg Tab, 1 TAB PO DAILY for 90 Days, #90 08/13/23 Current Medications Current Medications Medications (Trade) Dose Ordered Sig/Uyen Route PRN Reason Start Time Stop Time Status Last Admin Aspirin 81 mg DAILY PO 01/03/25 10:00 01/03/25 08:52 Atorvastatin Calcium (Lipitor) 20 mg HS PO 01/02/25 22:00 01/02/25 22:37 Famotidine (Pepcid Injection) 20 mg Q12HR IV 01/02/25 22:00 01/03/25 08:50 Azithromycin 250 ml @ 125 mls/hr DAILY IV 01/03/25 10:00 01/03/25 08:50 Apixaban (Eliquis) 5 mg BID PO 01/02/25 22:00 01/03/25 08:50 Diagnostic Test (Pha) (Accu-Chek Comfort Curve T) 1 strip IQ4HR 01/03/25 00:00 01/03/25 12:00 Insulin Human Regular (InsuLIN R) IQ4HR SC 01/03/25 00:00 01/03/25 12:36 Dextrose 50 ml UD PRN IV Blood Sugar LESS THAN 60 01/02/25 21:00 Sodium Chloride 1,000 ml @ 60 mls/hr [id number] IV 01/02/25 21:00 01/03/25 09:11 Acetaminophen/ Hydrocodone Bitart ([place] 5/325MG Tab) 1 tab Q4HP PRN PO MODERATE PAIN (4-6 PAIN SCALE) 01/02/25 21:00 Ondansetron HCl (Zofran) 4 mg Q4HP PRN IV NAUSEA / VOMITING 01/02/25 21:00 Docusate Sodium (Colace Capsule) 100 mg BIDPRN PRN PO FOR CONSTIPATION 01/02/25 21:00 Acetaminophen (Tylenol Tablet) 650 mg Q6HP PRN PO PAIN SCALE 1-3 OR TEMP>100.4 01/02/25 21:00 Nitroglycerin (Ntrostat Sublingual) 0.4 mg Q5MINP PRN SL FOR CHEST PAIN 01/02/25 21:45 Morphine Sulfate 2 mg Q30M PRN IV FOR CHEST PAIN 01/02/25 21:45 Review of Systems Constitutional: No symptom reported Ears, Nose, & Throat: No symptom reported Eyes: No symptom reported Neurological: Slurred speech reported yesterday, no focal weakness Pulmonary/Respiratory: No symptom reported Cardiovascular: Reports chest pain, denies palpitation or syncope Gastrointestinal: No symptom reported Genitourinary: No symptom reported Musculoskeletal: No symptom reported Skin: No symptom reported Psychiatric: No symptom reported Endocrine: No symptom reported Hematologic/Lymphatic: No symptom reported Vital Signs Vital Signs Date Time Temp Pulse Resp B/P (MAP) Pulse Ox O2 Delivery O2 Flow Rate FiO2 01/03/25 12:42 97.2 49 16 106/50 (68) 99 97.2 01/03/25 08:00 Nasal Cannula* 2 28 Physical Exam GENERAL: Alert and oriented x 3. No acute distress. EYES: PERRL, EOMI. Anicteric. HENT: Moist mucous membranes. LUNGS: Diminished breath sounds. CARDIOVASCULAR: Regular rate and rhythm. ABDOMEN: Soft, nontender and nondistended. EXTREMITIES: No edema. NEUROLOGIC: No focal neurological deficits. SKIN: Warm, dry. Labs/Diagnostic Data Labs Test 01/03/25 12:14 01/03/25 12:10 01/03/25 06:10 01/03/25 00:00 Range/Units POC Glucose 201 H 70-106 mg/dl Influenza Type A Antigen Negative Negative Influenza Type B Antigen Negative Negative SARS-CoV-2 Antigen (Rapid) Negative NEGATIVE White Blood Count 7.0 4.4-10.8 10^3/uL Red Blood Count 4.70 4.0-5.20 10^6/uL Hemoglobin 13.2 12.2-16.2 g/dL Hematocrit 39.2 36.0-46.0 % Mean Corpuscular Volume 83.3 80.0-100.0 fL Mean Corpuscular Hemoglobin 28.1 28.0-32.0 pg Mean Corpuscular Hemoglobin Concent 33.7 32.0-36.0 g/dL Red Cell Distribution Width 23.2 H 11.8-14.3 % Platelet Count 116 L 140-450 10^3/uL Mean Platelet Volume 9.9 6.9-10.8 fL Neutrophils (%) (Auto) 72.4 37.0-80.0 % Lymphocytes (%) (Auto) 11.8 10.0-50.0 % Monocytes (%) (Auto) 12.1 H 0.0-12.0 % Eosinophils (%) (Auto) 2.6 0.0-7.0 % Basophils (%) (Auto) 1.1 0.0-2.0 % Neutrophils # (Auto) 5.0 1.6-8.6 10 ^3/uL Lymphocytes # (Auto) 0.8 0.4-5.4 10 ^3/uL Monocytes # (Auto) 0.8 0-1.3 10 ^3/uL Eosinophils # (Auto) 0.2 0-0.8 10 ^3/uL Basophils # (Auto) 0.1 0-0.2 10 ^3/uL Nucleated Red Blood Cells 0.2 % Sodium Level 140 136-145 mmol/L Potassium Level 3.9 3.5-5.1 mmol/L Chloride Level 106 98-107 mmol/L Carbon Dioxide Level 28 20-31 mmol/L Anion Gap 6 5-15 Blood Urea Nitrogen 22 9-23 mg/dL Creatinine 1.58 H 0.550-1.02 mg/dL Glomerular Filtration Rate Calc 37 >90 mL/min BUN/Creatinine Ratio 13.9 10.0-20.0 Serum Glucose 152 H 74-106 mg/dL Calcium Level 9.0 8.7-10.4 mg/dL Magnesium Level 2.3 1.6-2.6 mg/dL Total Bilirubin 0.3 0.2-1.0 mg/dL Aspartate Amino Transferase (AST) 64 H 13-40 U/L Alanine Aminotransferase (ALT) 35 7-40 U/L Alkaline Phosphatase 55 46-116 U/L Total Protein 6.6 5.7-8.2 g/dL Albumin 4.1 3.2-4.8 g/dL Urine Color Light-yellow Yellow Urine Clarity Turbid H Clear Urine pH 5.5 5.0-9.0 Urine Specific [place] 1.040 H 1.001-1.035 Urine Protein Negative Negative Urine Ketones Negative Negative Urine Blood Negative Negative /uL Urine Nitrite Negative Negative Urine Bilirubin Negative Negative Urine Urobilinogen Normal Negative mg/dL Urine Leukocyte Esterase Trace Negative /uL Urine RBC 2 0 - 4 /hpf Urine Microscopic WBC 11 H 0-5 /HPF Urine Squamous Epithelial Cells Mod <5 /hpf Urine Bacteria Few H None Seen /hpf Urine Glucose 4+ H Normal mg/dL Test 01/02/25 17:56 01/02/25 16:21 Range/Units Troponin I High Sensitivity 3 L </=34 ng/L Prothrombin Time 10.5 9.3-11.8 sec Prothrombin Time INR 0.99 0.9-1.15 Activated Partial Thromboplast Time 27.0 24.5-34.5 SEC D-Dimer, Quantitative 1.06 H 0.0-0.49 mg/L FEU B-Type Natriuretic Peptide 34.74 0-100 pg/mL Assessment Sinus bradycardia, possible tachy-ray syndrome. Paroxysmal atrial fibrillation with intermittent slow ventricular rate (on Eliquis therapy). Chest pain, likely noncardiac negative troponins. Chronic compensated HRpEF. Mild Pulmonary edema. Elevated DDimer- PE ruled out. TOÑA on CKD. History of orthostatic hypotension. Hypertension. Hyperlipidemia. History of pulmonary embolism. Insulin-dependent type 2 diabetes mellitus. + HIV status. Tobacco use. Morbid obesity. Plan/Recommendation I agree with your ongoing assessment and care of plan. Patient has been seen by Dianna Jaimes NP on my behalf, her and I discussed the plan with the patient. Multiple comorbidities admitted for hypotension, TOÑA, pneumonia, pulmonary edema, and sinus bradycardia. No evidence of acute coronary syndrome (negative troponins, no acute ischemia on ECG). Telemetry shows persistent sinus bradycardia 40-50s without pauses or AV block. Given history of paroxysmal AFib, prior near-syncope, and current bradycardia, possible tachy-ray syndrome remains a concern. Recent echo with preserved EF. Continue to monitor on telemetry. No indication for pacing at this time as patient is hemodynamically stable and no significant pauses/blocks noted. Avoid AV larissa blocking agents given bradycardia. Ordered magnesium. Monitor electrolytes and replete as needed. Continue with anticoagulation with Eliquis (CHADS-VASc score 5, HAS-BLED score 1). Arrange outpatient event monitoring to evaluate for tachy-ray syndrome once acute illness resolves. Continue management of sepsis/pneumonia per primary team. Optimize comorbid conditions. Cardiology to follow and Close cardiac monitoring. Additional plan as per the hospital course. Plan discussed with: Patient NYHA Physical activity limitations: Class1(None)absent sob, Date of Service: Jan 03, 2025 Billing Provider: DARRELL SIN MD Cardiology Common Codes: 01064-[id number] INP/OBS CARE (High) Cardiology Consultation Codes: [id number] CONSULT <45MIN DARRELL SIN MD Jan 03, 2025 13:38
[2025-01-04] VITALS (8 sets, daily range): BP systolic 118–143; BP diastolic 55–81; PULSE 48–52; RESP 17–20; TEMP 97.4–98; O2SAT 94–100
--- NOTE | 2025-01-04 08:49 | DVHPN2 ---
Subjective No cardiac event reported Remained sinus rhythm sinus ray Reviewed: Care Plan, H&P, Labs, Medications, Previous Orders, Radiology Changes from previous H/P or p: No Changes Eyes: No Pain, No Vision change, No Conjunctivae inflammation, No Eyelid inflammation, No Other, No Redness ENT: No Ear pain, No Ear discharge, No Nose pain, No Nose discharge, No Nose congestion, No Mouth pain, No Mouth swelling, No Throat pain, No Throat swelling, No Other Cardiovascular: Chest Pain; No Palpitations, No Orthopnea, No Paroxysmal Noc. Dyspnea, No Edema, No Lt Headedness, No Other Respiratory: No Cough, No Dry, No Shortness of breath, No SOB with excertion, No Wheezing, No Hemoptysis, No Pleuritic Pain, No Sputum, No Other Gastrointestinal: No Nausea, No Vomiting, No Abdominal Pain, No Diarrhea, No Constipation, No Melena, No Hematochezia, No Other Genitourinary: No Dysuria, No Frequency, No Incontinence, No Hematuria, No Retention, No Other Musculoskeletal: No other, No neck pain, No shoulder pain, No arm pain, No back pain, No hand pain, No leg pain, No foot pain Skin: No Rash, No Lesions, No Jaundice, No Bruising, No Other Objective Vitals Vital Signs Date Time Temp Pulse Resp B/P (MAP) Pulse Ox O2 Delivery O2 Flow Rate FiO2 01/04/25 05:00 97.6 49 18 143/73 (96) 94 97.6 01/03/25 20:00 Room Air* 0 21 Intake/Output Intake and Output 01/04/25 07:00 Intake Total 2625 ml Output Total 600 ml Balance 2025 ml Intake Oral 1375 ml IV Total 1250 ml Output Urine Total 600 ml # Voids 1 Medications Current Medications Medications Dose Ordered Sig/Uyen Route Start Time Stop Time Status Last Admin Dose Admin Aspirin 81 mg DAILY PO 01/03/25 10:00 01/04/25 08:41 81 MG Atorvastatin Calcium 20 mg HS PO 01/02/25 22:00 01/03/25 21:40 20 MG Famotidine 20 mg Q12HR IV 01/02/25 22:00 01/04/25 08:41 20 MG Azithromycin 250 ml @ 125 mls/hr DAILY IV 01/03/25 10:00 01/04/25 08:41 125 MLS/HR Apixaban 5 mg BID PO 01/02/25 22:00 01/03/25 21:40 5 MG Diagnostic Test (Pha) 1 strip IQ4HR 01/03/25 00:00 01/04/25 08:26 1 STRIP Insulin Human Regular IQ4HR SC 01/03/25 00:00 01/04/25 08:41 3 UNITS Dextrose 50 ml UD PRN IV 01/02/25 21:00 Sodium Chloride 1,000 ml @ 60 mls/hr [id number] IV 01/02/25 21:00 01/03/25 09:11 60 MLS/HR Acetaminophen/ Hydrocodone Bitart 1 tab Q4HP PRN PO 01/02/25 21:00 01/03/25 21:41 1 TAB Ondansetron HCl 4 mg Q4HP PRN IV 01/02/25 21:00 Docusate Sodium 100 mg BIDPRN PRN PO 01/02/25 21:00 Acetaminophen 650 mg Q6HP PRN PO 01/02/25 21:00 Nitroglycerin 0.4 mg Q5MINP PRN SL 01/02/25 21:45 Morphine Sulfate 2 mg Q30M PRN IV 01/02/25 21:45 Laboratory Results Laboratory Tests 01/03/25 06:10 Urinalysis Test 01/03/25 00:00 Urine Color Light-yellow (Yellow) Urine Clarity Turbid (Clear) H Urine pH 5.5 (5.0-9.0) Urine Specific [place] 1.040 (1.001-1.035) Urine Protein Negative (Negative) Urine Ketones Negative (Negative) Urine Blood Negative /uL (Negative) Urine Nitrite Negative (Negative) Urine Bilirubin Negative (Negative) Urine Urobilinogen Normal mg/dL (Negative) Urine Leukocyte Esterase Trace /uL (Negative) Urine RBC 2 /hpf (0 - 4) Urine Microscopic WBC 11 /HPF (0-5) H Urine Squamous Epithelial Cells Mod /hpf (<5) Urine Bacteria Few /hpf (None Seen) H Urine Glucose 4+ mg/dL (Normal) H Microbiology Microbiology Date/Time Source Procedure Growth Status 01/03/25 01:35 Nose MRSA Screen - Final Complete Assessment/Plan Assessment/Plan Sinus bradycardia, possible tachy-ray syndrome Paroxysmal atrial fibrillation with intermittent slow ventricular rate (on Eliquis therapy) Chest pain, to rule out CAD Chronic compensated HRpEF Mild Pulmonary edema Elevated DDimer- PE ruled out TOÑA on CKD Hx of orthostatic hypotension Hypertension Hyperlipidemia History of pulmonary embolism Insulin-dependent type 2 diabetes mellitus + HIV status Tobacco use Morbid obesity Plan/Recommendation (Dr. Sin ): Multiple comorbidities admitted for hypotension, TOÑA, pneumonia, pulmonary edema, and sinus bradycardia. No evidence of acute coronary syndrome, negative troponins, no acute ischemia on ECG, but given episodes of Chest pain with comorbidities, we will schedule the patient for adenosine stress test . Telemetry shows persistent sinus bradycardia 40-50s without pauses or AV block. Given history of paroxysmal AFib, prior near-syncope, and current bradycardia, possible tachy-ray syndrome remains a concern. Recent echo with preserved EF. * Continue to monitor on telemetry * Adenosine stress test * No indication for pacing at this time as patient is hemodynamically stable and no significant pauses/blocks noted * Avoid AV larissa blocking agents given bradycardia * Ordered magnesium. Monitor electrolytes and replete as needed * Continue with anticoagulation with Eliquis (CHADS-VASc score 5, HAS-BLED score 1) * Arrange outpatient event monitoring to evaluate for tachy-ray syndrome once acute illness resolves * Continue management of sepsis/pneumonia per primary team * Optimize comorbid conditions Plan discussed with: Patient My Orders Orders - MICHELLE NEGRO Procedure Category Date Status Time Electrocardigram EKG 01/03/25 Logged 14:00 Cardiolite Multiple NM 01/03/25 Logged 17:42 Date of Service: Jan 04, 2025 Billing Provider: DARRELL SIN MD Common Visit Codes: CONSULT ONLY Consultation Codes: [id number] CONSULT <45MIN MICHELLE NEGRO Jan 04, 2025 08:49
--- NOTE | 2025-01-04 09:59 | DVHPN2 ---
Reviewed: Care Plan, H&P, Labs, Medications, Previous Orders, Radiology Changes from previous H/P or p: No Changes Eyes: No Pain, No Vision change, No Conjunctivae inflammation, No Eyelid inflammation, No Other, No Redness ENT: No Ear pain, No Ear discharge, No Nose pain, No Nose discharge, No Nose congestion, No Mouth pain, No Mouth swelling, No Throat pain, No Throat swelling, No Other Cardiovascular: Chest Pain; No Palpitations, No Orthopnea, No Paroxysmal Noc. Dyspnea, No Edema, No Lt Headedness, No Other Respiratory: No Cough, No Dry, No Shortness of breath, No SOB with excertion, No Wheezing, No Hemoptysis, No Pleuritic Pain, No Sputum, No Other Gastrointestinal: No Nausea, No Vomiting, No Abdominal Pain, No Diarrhea, No Constipation, No Melena, No Hematochezia, No Other Genitourinary: No Dysuria, No Frequency, No Incontinence, No Hematuria, No Retention, No Other Musculoskeletal: No other, No neck pain, No shoulder pain, No arm pain, No back pain, No hand pain, No leg pain, No foot pain Skin: No Rash, No Lesions, No Jaundice, No Bruising, No Other Objective Vitals Vital Signs Date Time Temp Pulse Resp B/P (MAP) Pulse Ox O2 Delivery O2 Flow Rate FiO2 01/04/25 09:00 98.0 49 18 126/55 (78) 97 98.0 01/03/25 20:00 Room Air* 0 21 Intake/Output Intake and Output 01/04/25 07:00 Intake Total 2625 ml Output Total 600 ml Balance 2025 ml Intake Oral 1375 ml IV Total 1250 ml Output Urine Total 600 ml # Voids 1 Medications Current Medications Medications Dose Ordered Sig/Uyen Route Start Time Stop Time Status Last Admin Dose Admin Aspirin 81 mg DAILY PO 01/03/25 10:00 01/04/25 08:41 81 MG Atorvastatin Calcium 20 mg HS PO 01/02/25 22:00 01/03/25 21:40 20 MG Famotidine 20 mg Q12HR IV 01/02/25 22:00 01/04/25 08:41 20 MG Azithromycin 250 ml @ 125 mls/hr DAILY IV 01/03/25 10:00 01/04/25 08:41 125 MLS/HR Diagnostic Test (Pha) 1 strip IQ4HR 01/03/25 00:00 01/04/25 08:26 1 STRIP Insulin Human Regular IQ4HR SC 01/03/25 00:00 01/04/25 08:41 3 UNITS Dextrose 50 ml UD PRN IV 01/02/25 21:00 Sodium Chloride 1,000 ml @ 60 mls/hr [id number] IV 01/02/25 21:00 01/03/25 09:11 60 MLS/HR Acetaminophen/ Hydrocodone Bitart 1 tab Q4HP PRN PO 01/02/25 21:00 01/03/25 21:41 1 TAB Ondansetron HCl 4 mg Q4HP PRN IV 01/02/25 21:00 Docusate Sodium 100 mg BIDPRN PRN PO 01/02/25 21:00 Acetaminophen 650 mg Q6HP PRN PO 01/02/25 21:00 Nitroglycerin 0.4 mg Q5MINP PRN SL 01/02/25 21:45 Morphine Sulfate 2 mg Q30M PRN IV 01/02/25 21:45 Enoxaparin Sodium 100 mg Q12HR SC 01/04/25 22:00 Laboratory Results Laboratory Tests 01/03/25 06:10 Urinalysis Test 01/03/25 00:00 Urine Color Light-yellow (Yellow) Urine Clarity Turbid (Clear) H Urine pH 5.5 (5.0-9.0) Urine Specific [place] 1.040 (1.001-1.035) Urine Protein Negative (Negative) Urine Ketones Negative (Negative) Urine Blood Negative /uL (Negative) Urine Nitrite Negative (Negative) Urine Bilirubin Negative (Negative) Urine Urobilinogen Normal mg/dL (Negative) Urine Leukocyte Esterase Trace /uL (Negative) Urine RBC 2 /hpf (0 - 4) Urine Microscopic WBC 11 /HPF (0-5) H Urine Squamous Epithelial Cells Mod /hpf (<5) Urine Bacteria Few /hpf (None Seen) H Urine Glucose 4+ mg/dL (Normal) H Microbiology Microbiology Date/Time Source Procedure Growth Status 01/03/25 01:35 Nose MRSA Screen - Final Complete Labs and/or images reviewed: Labs reviewed by me, Image(s) reviewed by me Assessment/Plan Assessment/Plan Acute chest pain troponin negative, cardiology consult for Dr. Chaves appreciated waiting for stress test Possible community-acquired pneumonia Gram-positive versus Gram-negative Azithromycin, Thu test negative, flu test negative Acute Hypotension: IV fluids Bradycardia Altered mental status Acute kidney injury Elevated d-dimer PE ruled out Diabetes mellitus with hyperglycemia Community-acquired Pneumonia, Gram-positive versus Gram-negative AFib on Eliquis Acute on chronic CHF exacerbation Chronic current smoker: Counseling 20 minutes History of CVA Diabetes HIV Hypertension History of seizures Time spent 65 minutes Advanced care planning time 20 minutes Patient is full code Plan discussed with: Patient My Orders Orders - VERITO MORENO MD Procedure Category Date Status Time * Cardiology Consult CONS 01/03/25 Transmitted 10:24 Date of Service: Jan 04, 2025 Billing Provider: VERITO MORENO MD Common Visit Codes: [id number] CARE 30-74 MIN Secondary Visit Codes: [id number] CHNG SMOKING >10MIN VERITO MORENO MD Jan 04, 2025 09:59
--- NOTE | 2025-01-04 10:56 | ECG ---
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
--- NOTE | 2025-01-04 20:58 | DVHINCON2 ---
Date of service: Jan 04, 2025 Referring Physician Henry Reason for Consultation Altered mental status History of Present Illness Ms. Lezama is a 59 years old right-handed female with a history of hypertension, diabetes, congestive heart failure, atrial fibrillation, chronic kidney failure, nonepileptic seizure, obesity, she was taken to the [facility] on 01/02/2025 with a chief complaint of general weakness, hypotension (she does not remember the reading) She denies, but ER note mentioned general weakness, slurred speech, left-sided weakness, history of stroke with left-sided weakness, She refused a gone in the ER, but this note also mentioned the patient was AO(4) (ER note 01/02/2025 1530) She does not know if he snores, her sleep is refreshing, and she has good energy throughout the day Since 2002, the patient has periodic event where she has shaking all over body, eyes rolling back, with altered loss of consciousness, the patient's have up to 20 seizures in the role, with the last attack in 11/2024, typically the events were triggered by stress, and 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 He denies a history of anxiety Her home medications may include: Lipitor 40 mg daily, aspirin 81 mg daily, Eliquis 5 mg b.i.d., Cymbalta, Flexeril, UDS, 01/03/2025: WBC: 11, urine leukocyte esterase: Trace CBC, 01/03/2025: Unremarkable CMP, 01/03/2025: Unremarkable Chest x-ray, 01/02/2025: 1. No acute pulmonary emboli. 2. No focal consolidations. 3. mild pulmonary edema. CT head, 01/02/2025: No acute intracranial abnormality CTA chest, 01/02/2025: 1. No acute pulmonary emboli. 2. No focal consolidations. 3. mild pulmonary edema MRI, right foot, 08/07/2024: Cellulitis No osteomyelitis Old fracture seen of the 3rd proximal phalanx consistent with prior CT study. Moderate degenerative changes of the midfoot. Past Medical History Hypertension, diabetes, congestive heart failure, AFib, chronic kidney failure, nonepileptic seizure, he denied a history of anxiety, stroke (ER note 01/02/2025 1530: PATIENT DOES HAVE PMHX OF CVA WITH LEFT SIDED DEFECITS) Past Surgical History Cholecystectomy, hernia repair, thyroidectomy Family History: Cardiovascular disease G8 FATHER Diabetes mellitus G8 SISTER Suicide G8 BROTHER Family History Hypertension, diabetes, heart disease, anxiety Social History She smokes, but no history of alcohol or drug abuse Allergies: Coded Allergies: Loperamide (Verified Allergy, Severe, 08/13/23) Nystatin (Verified Allergy, Severe, 08/13/23) Penicillins (Verified Allergy, Severe, 08/13/23) Diphenhydramine (Verified Allergy, Unknown, 09/23/24) Home Meds Active Scripts Furosemide (Lasix) 20 Mg Tb, 1 TAB PO DAILY for 30 Days, #30 TAB 1 Refill Prov:LISA OAKES 12/30/24 Amiodarone HCl (Amiodarone HCl) 200 Mg Tab, 100 MG PO BID for 30 Days, #30 TAB please hold if heart rate remains below 50 / min Prov:LISA OAKES 12/30/24 Insulin Glargine (Lantus) 100 Unit/Ml Inj, 15 UNITS SC BID@0700,2200 for 30 Days, #90 INJ 1 Refill Prov:BETHANY JEFF DO 11/17/24 Reported Medications Insulin Glargine (Basaglar Kwikpen) 100 Unit/Ml Inj, 100 UNITS SC BID for 30 Days, #60 08/18/24 Insulin Lispro (Insulin Lispro Kwikpen) 100 Unit/Ml Inj, 10 UNITS SC DAILY for 1 00 Days, #15 08/18/24 Cetirizine HCl (Cetirizine Hydrochloride) 10 Mg Tab, 1 TAB PO DAILY for 90 Days, #90 08/18/24 Dapagliflozin Propanediol (Dapagliflozin Propanediol) 5 Mg Tab, 1 TAB PO DAILY for 100 Days, #100 08/18/24 Ferrous Sulfate (Ferosul) 325 Mg Tab, 1 TAB PO DAILY for anemia 06/08/24 Sitagliptin Phosphate (Januvia) 100 Mg Tab, 1 DAILY for 90 Days, #90 06/08/24 Fenofibrate (FENOFIBRATE) 145 Mg Tab, 1 TAB PO DAILY for 90 Days, #90 06/06/24 Cyclobenzaprine HCl (Cyclobenzaprine Hydrochlo) 10 Mg Tab, 1 TAB PO BID PRN for PAIN FOR MUSCLE SPASMS for 30 Days, #15 08/13/23 Famotidine (Famotidine) 20 Mg Tab, 1 TAB PO BID PRN for ACID REFLUX AND ABDOMINAL PAIN for 90 Days, #180 08/13/23 Hydrocodone-Acetaminophen (Hydrocodone/Acetaminophen 5-325 mg) 1 Tab Tab, 2 TAB PO BID 08/13/23 Pregabalin (Pregabalin) 200 Mg Cap, 1 CAP PO TID for 30 Days, #90 08/13/23 Apixaban Base (ELIQUIS) 5 Mg Tab, 1 TAB PO BID for 45 Days, #90 08/13/23 Aspirin (Aspirin) 81 Mg Chw, 1 TAB PO DAILY for 90 Days, #90 08/13/23 Atorvastatin Calcium (ATORVASTATIN CALCIUM) 40 Mg Tab, 1 TAB PO DAILY for 90 Days, #90 08/13/23 Discontinued Reported Medications Amiodarone HCl (Amiodarone HCl) 200 Mg Tab, 1 TAB PO BID for 90 Days, #180 08/18/24 Metoprolol Tartrate (Metoprolol Tartrate) 25 Mg Tab, 25 MG PO DAILY for 90 Days, #90 06/06/24 Potassium Chloride (POTASSIUM CHLORIDE CR) 10 Meq Tb, 1 TAB PO DAILY for 30 Days, #30 06/06/24 Furosemide (Furosemide) 40 Mg Tab, 1 TAB PO DAILY for 90 Days, #90 08/13/23 Lisinopril (Lisinopril) 2.5 Mg Tab, 1 TAB PO DAILY for 90 Days, #90 08/13/23 Current Medications Current Medications Medications (Trade) Dose Ordered Sig/Uyen Route PRN Reason Start Time Stop Time Status Last Admin Enoxaparin Sodium (Lovenox) 100 mg Q12HR SC 01/04/25 22:00 Review of Systems As above, the other systems are negative Vital Signs Vital Signs Date Time Temp Pulse Resp B/P (MAP) Pulse Ox O2 Delivery O2 Flow Rate FiO2 01/04/25 17:00 97.8 52 18 123/58 (79) 98 97.8 01/04/25 08:00 Room Air* 0 21 Physical Exam GENERAL EXAM: General: the patient is well developed and nourished. No acute distress. HEENT: Normocephalic, neck is supple, no carotid bruits. No mass. The throat is Mallampati grade RESPIRATORY: Normal respiratory effort with symmetrical lung expansion. Lungs clear to auscultation. CARDIOVASCULAR: Regular rate and rhythm with no murmurs. S1, S2. ABDOMEN: Soft, nontender, normal bowel sound NEUROLOGICAL: MENTAL STATUS: Awake and alert. Oriented to person, place, time and general circumstances. Able to give personal history. SPEECH, LANGUAGE, HIGHER CORTICAL FUNCTION: no aphasia or dysathria. CRANIAL NERVES: #2: Intact visual porter to confrontation. The optic discs were sharp. #3,4,6: Pupils are equal, round and reactive. EOMs full and conjugate. #5: Facial sensation intact in all three divisions bilaterally. Mandibular strength intact. #7: Facial muscles symmetrical and strength intact. #8: Hearing grossly normal to voice. #9,10: Uvula and soft palate rise in the midline. Swallow and voice are normal. #11: Trapezius and sternomastoid strength intact bilaterally. #12: Tongue midline. No fasciculations or atrophy. SENSATION: Sensation to touch and pinprick is normal. MOTOR: Normal tone in the upper and lower extremity. Normal muscle bulk. No fasciculations. No abnormal movements or posturing. Muscle strength of the major groups in the upper extremities is 5/5. Muscle strength of the major groups in the lower extremities is 5/5. REFLEXES: Deep tendon reflexes are symmetrical. No pathological reflexes. CEREBELLAR/COORDINATION: Finger to nose and heel to lowry are normal bilaterally. GAIT/STATION: deferred Labs/Diagnostic Data Labs Test 01/04/25 20:12 01/03/25 12:10 01/03/25 06:10 01/03/25 00:00 Range/Units POC Glucose 211 H 70-106 mg/dl Influenza Type A Antigen Negative Negative Influenza Type B Antigen Negative Negative SARS-CoV-2 Antigen (Rapid) Negative NEGATIVE White Blood Count 7.0 4.4-10.8 10^3/uL Red Blood Count 4.70 4.0-5.20 10^6/uL Hemoglobin 13.2 12.2-16.2 g/dL Hematocrit 39.2 36.0-46.0 % Mean Corpuscular Volume 83.3 80.0-100.0 fL Mean Corpuscular Hemoglobin 28.1 28.0-32.0 pg Mean Corpuscular Hemoglobin Concent 33.7 32.0-36.0 g/dL Red Cell Distribution Width 23.2 H 11.8-14.3 % Platelet Count 116 L 140-450 10^3/uL Mean Platelet Volume 9.9 6.9-10.8 fL Neutrophils (%) (Auto) 72.4 37.0-80.0 % Lymphocytes (%) (Auto) 11.8 10.0-50.0 % Monocytes (%) (Auto) 12.1 H 0.0-12.0 % Eosinophils (%) (Auto) 2.6 0.0-7.0 % Basophils (%) (Auto) 1.1 0.0-2.0 % Neutrophils # (Auto) 5.0 1.6-8.6 10 ^3/uL Lymphocytes # (Auto) 0.8 0.4-5.4 10 ^3/uL Monocytes # (Auto) 0.8 0-1.3 10 ^3/uL Eosinophils # (Auto) 0.2 0-0.8 10 ^3/uL Basophils # (Auto) 0.1 0-0.2 10 ^3/uL Nucleated Red Blood Cells 0.2 % Sodium Level 140 136-145 mmol/L Potassium Level 3.9 3.5-5.1 mmol/L Chloride Level 106 98-107 mmol/L Carbon Dioxide Level 28 20-31 mmol/L Anion Gap 6 5-15 Blood Urea Nitrogen 22 9-23 mg/dL Creatinine 1.58 H 0.550-1.02 mg/dL Glomerular Filtration Rate Calc 37 >90 mL/min BUN/Creatinine Ratio 13.9 10.0-20.0 Serum Glucose 152 H 74-106 mg/dL Calcium Level 9.0 8.7-10.4 mg/dL Magnesium Level 2.3 1.6-2.6 mg/dL Total Bilirubin 0.3 0.2-1.0 mg/dL Aspartate Amino Transferase (AST) 64 H 13-40 U/L Alanine Aminotransferase (ALT) 35 7-40 U/L Alkaline Phosphatase 55 46-116 U/L Total Protein 6.6 5.7-8.2 g/dL Albumin 4.1 3.2-4.8 g/dL Urine Color Light-yellow Yellow Urine Clarity Turbid H Clear Urine pH 5.5 5.0-9.0 Urine Specific [place] 1.040 H 1.001-1.035 Urine Protein Negative Negative Urine Ketones Negative Negative Urine Blood Negative Negative /uL Urine Nitrite Negative Negative Urine Bilirubin Negative Negative Urine Urobilinogen Normal Negative mg/dL Urine Leukocyte Esterase Trace Negative /uL Urine RBC 2 0 - 4 /hpf Urine Microscopic WBC 11 H 0-5 /HPF Urine Squamous Epithelial Cells Mod <5 /hpf Urine Bacteria Few H None Seen /hpf Urine Glucose 4+ H Normal mg/dL Test 01/02/25 17:56 01/02/25 16:21 Range/Units Troponin I High Sensitivity 3 L </=34 ng/L Prothrombin Time 10.5 9.3-11.8 sec Prothrombin Time INR 0.99 0.9-1.15 Activated Partial Thromboplast Time 27.0 24.5-34.5 SEC D-Dimer, Quantitative 1.06 H 0.0-0.49 mg/L FEU B-Type Natriuretic Peptide 34.74 0-100 pg/mL Microbiology Date/Time Source Procedure Growth Status 01/03/25 01:35 Nose MRSA Screen - Final Complete Assessment Reported confusion/altered mental status in ER note Reported left-sided weakness in ER note Reported chronic stroke, but not confirmed with her Psychogenic seizure Atrial fibrillation Plan/Recommendation Monitoring Supportive treatment Telemetry MRI brain scan Lovenox 100 mg subQ b.i.d. Lipitor 20 mg q.d. She has been advised to monitor her sleep symptoms More recommendation per clinical course Prognosis: Poor This medical document was created using an electronic medical record system with [employer] dictation system. Although this document has been carefully reviewed, there may still be some phonetic and typographical errors. These areas are purely typographical due to imperfections of the software programs, and do not reflect any compromise in the patient's medical care. Plan discussed with: Patient, Other SHAN RUSSELL MD Jan 04, 2025 20:58
[2025-01-04] MEDS ORDERED: LORazepam 2MG/ML-1ML VIAL IV PRN (21:45)
[2025-01-04] MEDS: ENOXAPARIN SOD 100 MG/1 ML SYRINGE SC SCH (22:30)
--- NOTE | 2025-01-04 23:43 | DVHPN2 ---
Consult Progress Note Subjective Other Systems: Patient was seen and evaluated in follow up. No cardiac events reported. Patient remains in sinus rhythm/sinus bradycardia on the property assessment monitor. GLUC 239. Telemetry reviewed. Objective vital signs Vital Sign Date Time Temp Pulse Resp B/P (MAP) Pulse Ox O2 Delivery O2 Flow Rate FiO2 01/04/25 13:00 97.4 52 20 118/73 (88) 98 97.4 01/04/25 08:00 Room Air* 0 21 Total Intake and Output 01/03/25 01/03/25 01/04/25 15:00 23:00 07:00 Intake Total 1250 ml 650 ml 725 ml Output Total 600 ml Balance 1250 ml 50 ml 725 ml medications Current Medications Medications Dose Ordered Sig/Uyen Route Start Time Stop Time Status Last Admin Dose Admin Aspirin 81 mg DAILY PO 01/03/25 10:00 01/04/25 08:41 81 MG Atorvastatin Calcium 20 mg HS PO 01/02/25 22:00 01/03/25 21:40 20 MG Famotidine 20 mg Q12HR IV 01/02/25 22:00 01/04/25 08:41 20 MG Azithromycin 250 ml @ 125 mls/hr DAILY IV 01/03/25 10:00 01/04/25 08:41 125 MLS/HR Diagnostic Test (Pha) 1 strip IQ4HR 01/03/25 00:00 01/04/25 11:43 1 STRIP Insulin Human Regular IQ4HR SC 01/03/25 00:00 01/04/25 11:54 6 UNITS Dextrose 50 ml UD PRN IV 01/02/25 21:00 Sodium Chloride 1,000 ml @ 60 mls/hr [id number] IV 01/02/25 21:00 01/03/25 09:11 60 MLS/HR Acetaminophen/ Hydrocodone Bitart 1 tab Q4HP PRN PO 01/02/25 21:00 01/03/25 21:41 1 TAB Ondansetron HCl 4 mg Q4HP PRN IV 01/02/25 21:00 Docusate Sodium 100 mg BIDPRN PRN PO 01/02/25 21:00 Acetaminophen 650 mg Q6HP PRN PO 01/02/25 21:00 Nitroglycerin 0.4 mg Q5MINP PRN SL 01/02/25 21:45 Morphine Sulfate 2 mg Q30M PRN IV 01/02/25 21:45 Enoxaparin Sodium 100 mg Q12HR SC 01/04/25 22:00 Examination: GENERAL:Normal, HEENT:Normal, NECK:Normal, LUNGS:Normal, CVS:Normal, ABDOMEN:Normal, SKIN:Normal laboratory and microbiology Laboratory Tests 01/03/25 06:10 Test 01/03/25 06:10 Range/Units Serum Glucose 152 H 74-106 mg/dL Problem List/Assessment/Plan Problem List/Assessment/Plan Assessment Sinus bradycardia, possible tachy-ray syndrome. Paroxysmal atrial fibrillation with intermittent slow ventricular rate (on Eliquis therapy). Chest pain, to rule out CAD. Chronic compensated HRpEF. Mild Pulmonary edema. Elevated DDimer- PE ruled out. TOÑA on CKD. History of orthostatic hypotension. Hypertension. Hyperlipidemia. History of pulmonary embolism. Insulin-dependent type 2 diabetes mellitus. + HIV status. Tobacco use. Morbid obesity. Plan/Recommendation I agree with your ongoing assessment and care of plan. Patient has been seen by Dianna Jaimes NP on my behalf, her and I discussed the plan with the patient. Multiple comorbidities admitted for hypotension, TOÑA, pneumonia, pulmonary edema, and sinus bradycardia. No evidence of acute coronary syndrome, negative troponins, no acute ischemia on ECG, but given episodes of Chest pain with comorbidities, we will schedule the patient for adenosine stress test . Telemetry shows persistent sinus bradycardia 40-50s without pauses or AV block. Given history of paroxysmal AFib, prior near-syncope, and current bradycardia, possible tachy-ray syndrome remains a concern. Recent echo with preserved EF. Continue to monitor on telemetry. Adenosine stress test. No indication for pacing at this time as patient is hemodynamically stable and no significant pauses/blocks noted. Avoid AV larissa blocking agents given bradycardia. Ordered magnesium. Monitor electrolytes and replete as needed. Continue with anticoagulation with Eliquis (CHADS-VASc score 5, HAS-BLED score 1). Arrange outpatient event monitoring to evaluate for tachy-ray syndrome once acute illness resolves. Continue management of sepsis/pneumonia per primary team. Optimize comorbid conditions. Additional plan as per the hospital course. Plan discussed with: Patient Date of Service: Jan 04, 2025 Billing Provider: DARRELL SIN MD Cardiology Common Codes: [id number](High Cardiology Consultation Codes: [id number] CONSULT <45MIN DARRELL SIN MD Jan 04, 2025 13:56
[2025-01-05 01:00] VITALS: BP 142/69; PULSE 50; RESP 17; TEMP 97.8; O2SAT 97
[2025-01-05 05:00] VITALS: BP 154/58; PULSE 52; RESP 17; TEMP 98.4; O2SAT 96
[2025-01-05 08:00] VITALS: PULSE 55
--- NOTE | 2025-01-05 08:18 | DVH ---
MRI BRAIN HEAD WO CONTRAST INDICATION: CVA EXAM DATE: 01/05/2025 07:32 AM COMPARISON: CT HEAD WITHOUT CONTRAST on DOS: 01/02/25, CT HEAD WITHOUT CONTRAST on DOS: 12/28/24, CT HE AD WITHOUT CONTRAST on DOS: 12/21/24 PROCEDURE: Using a 1.5 Lulu scanner, multisequence multiplanar imaging of the brain was obtained. FINDINGS: The brainshows normal morphology and signal characteristics. No abnormal T2 hyperintensity, diffusion restriction, or susceptibility hypointensity is present. The ventricles are normal in size . The midline structures are intact. The major intracranial flow voids are present. The aerated space s are normal. The orbital contents and extracranial soft tissues appear normal. IMPRESSION: No acute abnormal MRI findings of the brain.
[2025-01-05 08:48] VITALS: BP 135/59; PULSE 52; RESP 19; TEMP 97.7; O2SAT 98
--- NOTE | 2025-01-05 09:36 | DVHPN2 ---
Reviewed: Care Plan, H&P, Labs, Medications, Previous Orders, Radiology Changes from previous H/P or p: No Changes Eyes: No Pain, No Vision change, No Conjunctivae inflammation, No Eyelid inflammation, No Other, No Redness ENT: No Ear pain, No Ear discharge, No Nose pain, No Nose discharge, No Nose congestion, No Mouth pain, No Mouth swelling, No Throat pain, No Throat swelling, No Other Cardiovascular: Chest Pain; No Palpitations, No Orthopnea, No Paroxysmal Noc. Dyspnea, No Edema, No Lt Headedness, No Other Respiratory: No Cough, No Dry, No Shortness of breath, No SOB with excertion, No Wheezing, No Hemoptysis, No Pleuritic Pain, No Sputum, No Other Gastrointestinal: No Nausea, No Vomiting, No Abdominal Pain, No Diarrhea, No Constipation, No Melena, No Hematochezia, No Other Genitourinary: No Dysuria, No Frequency, No Incontinence, No Hematuria, No Retention, No Other Musculoskeletal: No other, No neck pain, No shoulder pain, No arm pain, No back pain, No hand pain, No leg pain, No foot pain Skin: No Rash, No Lesions, No Jaundice, No Bruising, No Other Objective Vitals Vital Signs Date Time Temp Pulse Resp B/P (MAP) Pulse Ox O2 Delivery O2 Flow Rate FiO2 01/05/25 08:48 97.7 52 19 135/59 (84) 98 97.7 01/04/25 20:00 Room Air* 0 21 Intake/Output Intake and Output 01/05/25 07:00 Intake Total 2110 ml Balance 2110 ml Intake Oral 1860 ml IV Total 250 ml # Voids 5 Medications Current Medications Medications Dose Ordered Sig/Uyen Route Start Time Stop Time Status Last Admin Dose Admin Aspirin 81 mg DAILY PO 01/03/25 10:00 01/04/25 08:41 81 MG Atorvastatin Calcium 20 mg HS PO 01/02/25 22:00 01/04/25 22:29 20 MG Famotidine 20 mg Q12HR IV 01/02/25 22:00 01/04/25 22:30 20 MG Azithromycin 250 ml @ 125 mls/hr DAILY IV 01/03/25 10:00 01/04/25 08:41 125 MLS/HR Diagnostic Test (Pha) 1 strip IQ4HR 01/03/25 00:00 01/05/25 08:01 1 STRIP Insulin Human Regular IQ4HR SC 01/03/25 00:00 01/05/25 04:35 3 UNITS Dextrose 50 ml UD PRN IV 01/02/25 21:00 Sodium Chloride 1,000 ml @ 60 mls/hr [id number] IV 01/02/25 21:00 01/03/25 09:11 60 MLS/HR Acetaminophen/ Hydrocodone Bitart 1 tab Q4HP PRN PO 01/02/25 21:00 01/04/25 16:06 1 TAB Ondansetron HCl 4 mg Q4HP PRN IV 01/02/25 21:00 Docusate Sodium 100 mg BIDPRN PRN PO 01/02/25 21:00 Acetaminophen 650 mg Q6HP PRN PO 01/02/25 21:00 Nitroglycerin 0.4 mg Q5MINP PRN SL 01/02/25 21:45 Morphine Sulfate 2 mg Q30M PRN IV 01/02/25 21:45 Enoxaparin Sodium 100 mg Q12HR SC 01/04/25 22:00 01/04/25 22:30 100 MG Lorazepam 1 mg ONCE PRN IV 01/04/25 21:45 Laboratory Results Laboratory Tests 01/03/25 06:10 Urinalysis Test 01/03/25 00:00 Urine Color Light-yellow (Yellow) Urine Clarity Turbid (Clear) H Urine pH 5.5 (5.0-9.0) Urine Specific [place] 1.040 (1.001-1.035) Urine Protein Negative (Negative) Urine Ketones Negative (Negative) Urine Blood Negative /uL (Negative) Urine Nitrite Negative (Negative) Urine Bilirubin Negative (Negative) Urine Urobilinogen Normal mg/dL (Negative) Urine Leukocyte Esterase Trace /uL (Negative) Urine RBC 2 /hpf (0 - 4) Urine Microscopic WBC 11 /HPF (0-5) H Urine Squamous Epithelial Cells Mod /hpf (<5) Urine Bacteria Few /hpf (None Seen) H Urine Glucose 4+ mg/dL (Normal) H Microbiology Microbiology Date/Time Source Procedure Growth Status 01/03/25 01:35 Nose MRSA Screen - Final Complete Labs and/or images reviewed: Labs reviewed by me, Image(s) reviewed by me Assessment/Plan Assessment/Plan Acute chest pain troponin negative, cardiology consult for Dr. Chaves appreciated , patient getting stress test today Possible community-acquired pneumonia Gram-positive versus Gram-negative Azithromycin, Thu test negative, flu test negative Acute Hypotension: IV fluids Bradycardia Altered mental status Acute kidney injury Elevated d-dimer PE ruled out Diabetes mellitus with hyperglycemia Community-acquired Pneumonia, Gram-positive versus Gram-negative AFib on Eliquis Acute on chronic CHF exacerbation Chronic current smoker: Counseling 20 minutes History of CVA Diabetes HIV Hypertension History of seizures Time spent 65 minutes Advanced care planning time 20 minutes Patient is full code Plan discussed with: Patient Date of Service: Jan 05, 2025 Billing Provider: VERITO MORENO MD Common Visit Codes: [id number] INP/OBS CARE(HIGH) VERITO MORENO MD Jan 05, 2025 09:36
[2025-01-05] MEDS: REGADENOSON 0.4 MG/5 ML SYRG IV ONE ×2 (10:50)
[2025-01-05 12:49] VITALS: BP 149/48; PULSE 63; RESP 20; TEMP 97.8; O2SAT 99
--- NOTE | 2025-01-05 13:48 | DVHSR ---
APPROVED REPORT Exam: Nuclear Stress Test BMI: 0 Stress Test Details HR Max Heart Rate (APMHR): 160.818933 bpm Target HR (85% APMHR): 136.796457 bpm BP ECG Stress ECG Conclusion lvef 57% no severe stress induced ischemia noted NM EXAM: Myocardial Perfusion REST/STRESS Imaging Protocol: Rest Tc-99m/Stress Tc-99m 1 day Resting Data Rest SPECT myocardial perfusion imaging was performed in supine position 60 minutes following the int ravenous injection of 10.2 mCi of Tc-99m Sestamibi. Time of rest injection: 08:20 Date: 01/05/2025 Time of rest imagin:20 Date: 01/05/2025 Administration Route: IV Administration Site: Left Arm Pharmacologic Stress Pharmacologic stress test was performed by injecting Regadenoson 0.4 mg IV push followed by the intra venous injection of 33.0 mCi of Tc-99m Sestamibi. Time of stress injection: 10:48 Date: 01/05/2025 Time of stress imagin:48 Date: 01/05/2025 Gated Stress SPECT was performed 60 minutes after stress injection. The images were gated to evaluate regional wall motion and calculate left ventricular ejection fracti on. Stress only was performed in the Supine position. Nuclear Conclusion Nuclear Findings: negative for ischemia lvef 57% no severe stress induced ischemia noted
--- NOTE | 2025-01-05 15:33 | DVHPN2 ---
Consult Progress Note Date Seen: Jan 05, 2025 Subjective Review of Systems: CVS:Normal, RESPIRATORY:Normal, NEURO:Normal Objective vital signs Vital Sign Date Time Temp Pulse Resp B/P (MAP) Pulse Ox O2 Delivery O2 Flow Rate FiO2 01/05/25 12:49 97.8 63 20 149/48 (81) 99 97.8 01/05/25 08:00 Room Air* 0 21 Total Intake and Output 01/04/25 01/04/25 01/05/25 15:00 23:00 07:00 Intake Total 250 ml 1060 ml 800 ml Balance 250 ml 1060 ml 800 ml medications Current Medications Medications Dose Ordered Sig/Uyen Route Start Time Stop Time Status Last Admin Dose Admin Aspirin 81 mg DAILY PO 01/03/25 10:00 01/05/25 12:17 81 MG Atorvastatin Calcium 20 mg HS PO 01/02/25 22:00 01/04/25 22:29 20 MG Famotidine 20 mg Q12HR IV 01/02/25 22:00 01/05/25 12:16 20 MG Azithromycin 250 ml @ 125 mls/hr DAILY IV 01/03/25 10:00 01/05/25 12:17 125 MLS/HR Diagnostic Test (Pha) 1 strip IQ4HR 01/03/25 00:00 01/05/25 12:07 1 STRIP Insulin Human Regular IQ4HR SC 01/03/25 00:00 01/05/25 12:19 6 UNITS Dextrose 50 ml UD PRN IV 01/02/25 21:00 Sodium Chloride 1,000 ml @ 60 mls/hr [id number] IV 01/02/25 21:00 01/03/25 09:11 60 MLS/HR Acetaminophen/ Hydrocodone Bitart 1 tab Q4HP PRN PO 01/02/25 21:00 01/04/25 16:06 1 TAB Ondansetron HCl 4 mg Q4HP PRN IV 01/02/25 21:00 Docusate Sodium 100 mg BIDPRN PRN PO 01/02/25 21:00 Acetaminophen 650 mg Q6HP PRN PO 01/02/25 21:00 Nitroglycerin 0.4 mg Q5MINP PRN SL 01/02/25 21:45 Morphine Sulfate 2 mg Q30M PRN IV 01/02/25 21:45 Enoxaparin Sodium 100 mg Q12HR SC 01/04/25 22:00 01/05/25 12:17 100 MG Lorazepam 1 mg ONCE PRN IV 01/04/25 21:45 Examination: LUNGS:Normal, CVS:Normal, NEURO:Normal laboratory and microbiology Laboratory Tests 01/03/25 06:10 Test 01/03/25 06:10 Range/Units Serum Glucose 152 H 74-106 mg/dL Problem List/Assessment/Plan Problem List/Assessment/Plan Chest pain rule out coronary artery disease Sinus bradycardia, asymptomatic Paroxysmal atrial fibrillation with intermittent slow ventricular rate (on Eliquis therapy) Chronic compensated HRpEF TOÑA on CKD Hypertension Hyperlipidemia History of pulmonary embolism, PE ruled out Insulin-dependent type 2 diabetes mellitus + HIV status Tobacco use Morbid obesity Plan/Recommendation (Dr. Chaves ) * Recent transthoracic echocardiogram revealed an LVEF of 55-60% * Mild LVH and diastolic dysfunction * Non-ischemic cardiolite stress test * Avoid AV larissa blocking agents given bradycardia * Monitor electrolytes and replete as needed * Continue with anticoagulation with Eliquis * CHADS-VASc score 5, HAS-BLED score 1 * Outpatient event monitoring to evaluate for tachy-ray syndrome events Telemetry shows persistent sinus bradycardia 40-50s bpm without pauses or atrioventricular blocks. She has been recommended for an outpatient event monitor on multiple admissions as she reports a history of AF. ALL twelve lead ECGs from all admission reviewed revealing only a sinus rhythm and no evidence of atrial fibrillation. Highly suspected for transient atrial fibrillation in the past. She is strongly advised for an event monitor to rule out tachyarrhythmias with subsequent discontinuation of NOACs if unnecessary. We will sign off at this time. Kindly call with any questions or concerns. Thank you for allowing us to participate in this patient's care. This medical document was created using an electronic medical record system with voice recognition software and computerized dictation system. Although this document has been carefully reviewed, there might still be some phonetic and typographical errors. Occasional wrong-word or ``sound-alike substitutions may have occurred due to the inherent limitations of voice recognition software. These areas are purely typographical due to imperfections of the software programs and do not reflect any compromise in the patient's medical care. Please read the chart carefully and recognize, using context, where these substitutions have occurred. Plan discussed with: Patient, Other Date of Service: Jan 05, 2025 Billing Provider: ALBER RUBY Cardiology Common Codes: [id number] INP/OBS CARE(Mod) ALBER RUBY Jan 05, 2025 15:33
[2025-01-05 16:57] VITALS: BP 124/74; PULSE 63; RESP 19; TEMP 98.3; O2SAT 100
--- NOTE | 2025-01-05 20:48 | DVHPN2 ---
Progress Note - Dictate Date Seen: Jan 05, 2025 Medical Necessity Reason Pt with a Central, PICC or Fol: No Subjective Ms. Lezama is a 59 years old right-handed female with a history of hypertension, diabetes, congestive heart failure, atrial fibrillation, chronic kidney failure, nonepileptic seizure, obesity, she was taken to the [facility] on 01[facility]02[facility]2025 with a chief complaint of general weakness, hypotension (she does not remember the reading) I have seen and examined the patient, she reports doing fine, no new complaints, he is alert and oriented x4 He was about have stress tests, I have reviewed her MRI brain films UDS, 01/03/2025: WBC: 11, urine leukocyte esterase: Trace CBC, 01/03/2025: Unremarkable CMP, 01/03/2025: Unremarkable Chest x-ray, 01/02/2025: 1. No acute pulmonary emboli. 2. No focal consolidations. 3. mild pulmonary edema. CT head, 01/02/2025: No acute intracranial abnormality CTA chest, 01/02/2025: 1. No acute pulmonary emboli. 2. No focal consolidations. 3. mild pulmonary edema MRI, right foot, 08/07/2024: Cellulitis No osteomyelitis Old fracture seen of the 3rd proximal phalanx consistent with prior CT study. Moderate degenerative changes of the midfoot MRI head, 01/05/2025: No acute abnormal MRI findings of the brain vital signs Vital Sign Date Time Temp Pulse Resp B/P (MAP) Pulse Ox O2 Delivery O2 Flow Rate FiO2 01/05/25 16:57 98.3 63 19 124/74 (91) 100 98.3 01/05/25 08:00 Room Air* 0 21 Total Intake and Output 01/04/25 01/04/25 01/05/25 15:00 23:00 07:00 Intake Total 250 ml 1060 ml 800 ml Balance 250 ml 1060 ml 800 ml objective General: the patient is well developed and nourished. No acute distress. MENTAL STATUS: Awake and alert. Oriented to person, place, time and general circumstances. Able to give personal history. SPEECH, LANGUAGE, HIGHER CORTICAL FUNCTION: no aphasia or dysathria. CRANIAL NERVES: Pupils are equal, round and reactive. EOMs full and conjugate. Facial sensation intact in all three divisions bilaterally. Mandibular strength intact. Facial muscles symmetrical and strength intact. Tongue midline. No fasciculations or atrophy. SENSATION: Sensation to touch and pinprick is normal. MOTOR: Normal tone in the upper and lower extremity. Normal muscle bulk. No fasciculations. No abnormal movements or posturing. Muscle strength of the major groups in the extremities is 5/5. REFLEXES: Deep tendon reflexes are symmetrical. No pathological reflexes. CEREBELLAR/COORDINATION: Finger to nose and heel to lowry are normal bilaterally. GAIT/STATION: deferred laboratory and microbiology Laboratory Tests 01/03/25 06:10 Test 01/03/25 06:10 Range/Units Serum Glucose 152 H 74-106 mg/dL Problem List Reported confusion/altered mental status in ER note Reported left-sided weakness in ER note Reported chronic stroke, but not confirmed with her Psychogenic seizure Atrial fibrillation Assessment/Plan Monitoring Supportive treatment Telemetry MRI brain scan (seizure reports) Lovenox 100 mg subQ b.i.d. Lipitor 20 mg q.d. She has been advised to monitor her sleep symptoms More recommendation per clinical course This medical document was created using an electronic medical record system with Penana dictation system. Although this document has been carefully reviewed, there may still be some phonetic and typographical errors. These areas are purely typographical due to imperfections of the software programs, and do not reflect any compromise in the patient's medical care. Prognosis poor Dietary Evaluation Review Comments: CCHO-60 Cardiac Diet Wt management upon D/C Expected Outcomes/Goals: controlled DM, gradual wt loss Plan discussed with: Patient SHAN RUSSELL MD Jan 05, 2025 20:48
--- NOTE | 2025-01-05 23:39 | DVHPN2 ---
Consult Progress Note Date Seen: Jan 05, 2025 Subjective Other Systems: Patient was seen and evaluated in follow up. Telemetry shows persistent sinus bradycardia 40-50s bpm without pauses or atrioventricular blocks. She has been recommended for an outpatient event monitor on multiple admissions as she reports a history of AF. ALL twelve lead ECGs from all admission reviewed revealing only a sinus rhythm and no evidence of atrial fibrillation. Highly suspected for transient atrial fibrillation in the past. She is strongly advised for an event monitor to rule out tachyarrhythmias with subsequent discontinuation of NOACs if unnecessary. Telemetry reviewed. Objective vital signs Vital Sign Date Time Temp Pulse Resp B/P (MAP) Pulse Ox O2 Delivery O2 Flow Rate FiO2 01/05/25 16:57 98.3 63 19 124/74 (91) 100 98.3 01/05/25 08:00 Room Air* 0 21 Total Intake and Output 01/04/25 01/04/25 01/05/25 15:00 23:00 07:00 Intake Total 250 ml 1060 ml 800 ml Balance 250 ml 1060 ml 800 ml Examination: GENERAL:Normal, HEENT:Normal, NECK:Normal, LUNGS:Normal, CVS:Normal, ABDOMEN:Normal, MSK:Normal, SKIN:Normal, NEURO:Normal laboratory and microbiology Laboratory Tests 01/03/25 06:10 Test 01/03/25 06:10 Range/Units Serum Glucose 152 H 74-106 mg/dL Problem List/Assessment/Plan Problem List/Assessment/Plan Assessment Chest pain rule out coronary artery disease. Sinus bradycardia, asymptomatic. Paroxysmal atrial fibrillation with intermittent slow ventricular rate (on Eliquis therapy). Chronic compensated HRpEF. TOÑA on CKD. Hypertension. Hyperlipidemia. History of pulmonary embolism, PE ruled out. Insulin-dependent type 2 diabetes mellitus. + HIV status. Tobacco use. Morbid obesity. Plan/Recommendation Continued all current supportive medical care. Recent transthoracic echocardiogram revealed an LVEF of 55-60%. Mild LVH and diastolic dysfunction. Non-ischemic cardiolite stress test. Avoid AV larissa blocking agents given bradycardia. Monitor electrolytes and replete as needed. Continue with anticoagulation with Eliquis. CHADS-VASc score 5, HAS-BLED score 1. Outpatient event monitoring to evaluate for tachy-ray syndrome events. Additional plan as per the hospital course. Plan discussed with: Patient Dietary Evaluation Review Comments[facility] Wt management upon D/C Expected Outcomes/Goals: controlled DM, gradual wt loss Date of Service: Jan 05, 2025 Billing Provider: DARRELL SIN MD Cardiology Common Codes: [id number] HOSP CARE(High DARRELL SIN MD Jan 05, 2025 23:39
--- NOTE | 2025-01-06 08:35 | DVHDS2 ---
Discharge Summary Date of Admission Jan 02, 2025 at 21:38 Date of Discharge: Jan 05, 2025 Admitting Diagnosis Shortness of breath and bradycardia Wounds: Cardiolite stress test Labs/Diagnostic Data: Laboratory Results Test 01/05/25 16:31 01/03/25 12:10 01/03/25 06:10 01/03/25 00:00 POC Glucose 207 mg/dl (70-106) Influenza Type A Antigen Negative (Negative) Influenza Type B Antigen Negative (Negative) SARS-CoV-2 Antigen (Rapid) Negative (NEGATIVE) White Blood Count 7.0 10^3/uL (4.4-10.8) Red Blood Count 4.70 10^6/uL (4.0-5.20) Hemoglobin 13.2 g/dL (12.2-16.2) Hematocrit 39.2 % (36.0-46.0) Mean Corpuscular Volume 83.3 fL (80.0-100.0) Mean Corpuscular Hemoglobin 28.1 pg (28.0-32.0) Mean Corpuscular Hemoglobin Concent 33.7 g/dL (32.0-36.0) Red Cell Distribution Width 23.2 % (11.8-14.3) Platelet Count 116 10^3/uL (140-450) Mean Platelet Volume 9.9 fL (6.9-10.8) Neutrophils (%) (Auto) 72.4 % (37.0-80.0) Lymphocytes (%) (Auto) 11.8 % (10.0-50.0) Monocytes (%) (Auto) 12.1 % (0.0-12.0) Eosinophils (%) (Auto) 2.6 % (0.0-7.0) Basophils (%) (Auto) 1.1 % (0.0-2.0) Neutrophils # (Auto) 5.0 10 ^3/uL (1.6-8.6) Lymphocytes # (Auto) 0.8 10 ^3/uL (0.4-5.4) Monocytes # (Auto) 0.8 10 ^3/uL (0-1.3) Eosinophils # (Auto) 0.2 10 ^3/uL (0-0.8) Basophils # (Auto) 0.1 10 ^3/uL (0-0.2) Nucleated Red Blood Cells 0.2 % Sodium Level 140 mmol/L (136-145) Potassium Level 3.9 mmol/L (3.5-5.1) Chloride Level 106 mmol/L (98-107) Carbon Dioxide Level 28 mmol/L (20-31) Anion Gap 6 (5-15) Blood Urea Nitrogen 22 mg/dL (9-23) Creatinine 1.58 mg/dL (0.550-1.02) Glomerular Filtration Rate Calc 37 mL/min (>90) BUN/Creatinine Ratio 13.9 (10.0-20.0) Serum Glucose 152 mg/dL (74-106) Calcium Level 9.0 mg/dL (8.7-10.4) Magnesium Level 2.3 mg/dL (1.6-2.6) Total Bilirubin 0.3 mg/dL (0.2-1.0) Aspartate Amino Transferase (AST) 64 U/L (13-40) Alanine Aminotransferase (ALT) 35 U/L (7-40) Alkaline Phosphatase 55 U/L (46-116) Total Protein 6.6 g/dL (5.7-8.2) Albumin 4.1 g/dL (3.2-4.8) Urine Color Light-yellow (Yellow) Urine Clarity Turbid (Clear) Urine pH 5.5 (5.0-9.0) Urine Specific [place] 1.040 (1.001-1.035) Urine Protein Negative (Negative) Urine Ketones Negative (Negative) Urine Blood Negative /uL (Negative) Urine Nitrite Negative (Negative) Urine Bilirubin Negative (Negative) Urine Urobilinogen Normal mg/dL (Negative) Urine Leukocyte Esterase Trace /uL (Negative) Urine RBC 2 /hpf (0 - 4) Urine Microscopic WBC 11 /HPF (0-5) Urine Squamous Epithelial Cells Mod /hpf (<5) Urine Bacteria Few /hpf (None Seen) Urine Glucose 4+ mg/dL (Normal) Test 01/02/25 17:56 01/02/25 16:21 Troponin I High Sensitivity 3 ng/L (</=34) Prothrombin Time 10.5 sec (9.3-11.8) Prothrombin Time INR 0.99 (0.9-1.15) Activated Partial Thromboplast Time 27.0 SEC (24.5-34.5) D-Dimer, Quantitative 1.06 mg/L FEU (0.0-0.49) B-Type Natriuretic Peptide 34.74 pg/mL (0-100) Other Laboratory Tests 01/03/25 06:10 Brief Hx & Hospital Course: 59-year-old female with a multiple medical history including diabetes AFib on Eliquis CHF chronic current smoker history of CVA HIV hypertension history of seizures came in for altered mental status and confusion found to be in hypotension given IV fluids he was symptomatic bradycardia CT seen by Cardiology Dr. Chaves Cardiolite stress test negative community-acquired pneumonia treated with the azithromycin. Patient feels better and wants to go home as the stress test is negative. Discharged home and she will continue all her home medication follow up with the PCP and orthopedic rn Consults/Reason for consult Cardiology Dr. Chaves Operations or Procedures Cardiolite stress test Condition at Discharge: Fair Final Diagnosis/Problems List Acute chest pain troponin negative, cardiology consult for Dr. Chaves appreciated , Cardiolite stress test negative Possible community-acquired pneumonia Gram-positive versus Gram-negative Azithromycin, Thu test negative, flu test negative Acute Hypotension: IV fluids Bradycardia Altered mental status Acute kidney injury Elevated d-dimer PE ruled out Diabetes mellitus with hyperglycemia Community-acquired Pneumonia, Gram-positive versus Gram-negative AFib on Eliquis Acute on chronic CHF exacerbation Chronic current smoker: Counseling 20 minutes History of CVA Diabetes HIV Hypertension History of seizures Discharge Disposition: Home Discharge Instruct/Medications Diet: Consistent carbohydrate Activity: No Restrictions, As Tolerated Medications: continue all home medications. Follow -up with pcp in 1 week. Follow up with the Cardiology Dr. Chaves in two weeks Scheduled Amiodarone HCl (Amiodarone HCl), 100 MG PO BID Apixaban Base (Eliquis), 1 TAB PO BID, (Reported) Aspirin (Aspirin), 1 TAB PO DAILY, (Reported) Atorvastatin Calcium (Atorvastatin Calcium), 1 TAB PO DAILY, (Reported) Cetirizine HCl (Cetirizine Hydrochloride), 1 TAB PO DAILY, (Reported) Dapagliflozin Propanediol (Dapagliflozin Propanediol), 1 TAB PO DAILY, (Reported) Fenofibrate (Fenofibrate), 1 TAB PO DAILY, (Reported) Ferrous Sulfate (Ferosul), 1 TAB PO DAILY, (Reported) Furosemide (Lasix), 1 TAB PO DAILY Hydrocodone-Acetaminophen (Hydrocodone/Acetaminophen 5-325 mg), 2 TAB PO BID, (Reported) Insulin Glargine (Basaglar Kwikpen), 100 UNITS SC BID, (Reported) Insulin Glargine (Lantus), 15 UNITS SC BID@0700,2200 Insulin Lispro (Insulin Lispro Kwikpen), 10 UNITS SC DAILY, (Reported) Pregabalin (Pregabalin), 1 CAP PO TID, (Reported) Sitagliptin Phosphate (Januvia), 1 DAILY, (Reported) Scheduled PRN Cyclobenzaprine HCl (Cyclobenzaprine Hydrochlo), 1 TAB PO BID PRN for PAIN FOR MUSCLE SPASMS, (Reported) Famotidine (Famotidine), 1 TAB PO BID PRN for ACID REFLUX AND ABDOMINAL PAIN, (Reported) Discontinued Medications Amiodarone HCl (Amiodarone HCl), 1 TAB PO BID, (Reported) Furosemide (Furosemide), 1 TAB PO DAILY, (Reported) Lisinopril (Lisinopril), 1 TAB PO DAILY, (Reported) Metoprolol Tartrate (Metoprolol Tartrate), 25 MG PO DAILY, (Reported) Potassium Chloride (Potassium Chloride Cr), 1 TAB PO DAILY, (Reported) 35 (Time taken for discharge summary 35 minutes) Discharge Statement: "Patient was advised to return to the ER or call 911 if any headaches, dizziness, shortness of breath, chest pain, abdominal pain, bleeding, fevers, or worsening of medical condition. Patient was counseled about treatment plan, medications, possible side effects, patientverbalized understanding. All questions were answered to the best of my ability. This discharge took greater then 30 minutes in planning, reviewing documentation, counseling the patient, and discussing with other team members." ASSESSMENT ASSESSMENT Assessment Acute chest pain troponin negative, cardiology consult for Dr. Chaves appreciated , Cardiolite stress test negative Possible community-acquired pneumonia Gram-positive versus Gram-negative Azithromycin, Thu test negative, flu test negative Acute Hypotension: IV fluids Bradycardia Altered mental status Acute kidney injury Elevated d-dimer PE ruled out Diabetes mellitus with hyperglycemia Community-acquired Pneumonia, Gram-positive versus Gram-negative AFib on Eliquis Acute on chronic CHF exacerbation Chronic current smoker: Counseling 20 minutes History of CVA Diabetes HIV Hypertension History of seizures Date of Service: Jan 06, 2025 Billing Provider: VERITO MORENO MD Common Visit Codes: 50101-AVZ/OBS DISCH DAY >30min VERITO MORENO MD Jan 06, 2025 08:35
== END 2025-01-05 18:15 | disposition home or self-care (01) | DRG 137 ==
LOC: ER 15:07 → EDBD 15:07 → OVERFLOW 21:38 → TELE-CENTR 21:40
PROVIDERS: ADMIT Family Medicine; ATTEND Family Medicine
DX: J15.69 Pneumonia due to other Gram-negative bacteria (principal); I50.33 Acute on chronic diastolic (congestive) heart failure; G93.41 Metabolic encephalopathy; N17.9 Acute kidney failure, unspecified; I13.0 Hypertensive heart and chronic kidney disease with heart failure and stage 1 through stage 4 chronic kidney disease, or unspecified chronic kidney disease; I95.9 Hypotension, unspecified; I69.354 Hemiplegia and hemiparesis following cerebral infarction affecting left non-dominant side; E11.22 Type 2 diabetes mellitus with diabetic chronic kidney disease; Z20.822 Contact with and (suspected) exposure to COVID-19; E11.65 Type 2 diabetes mellitus with hyperglycemia; E66.01 Morbid (severe) obesity due to excess calories; E78.5 Hyperlipidemia, unspecified; N18.9 Chronic kidney disease, unspecified; I48.0 Paroxysmal atrial fibrillation; E89.0 Postprocedural hypothyroidism; J15.9 Unspecified bacterial pneumonia; F17.210 Nicotine dependence, cigarettes, uncomplicated; Z68.37 Body mass index [BMI] 37.0-37.9, adult; Z79.01 Long term (current) use of anticoagulants; Z88.0 Allergy status to penicillin; Z88.8 Allergy status to other drugs, medicaments and biological substances; Z90.49 Acquired absence of other specified parts of digestive tract; Z82.49 Family history of ischemic heart disease and other diseases of the circulatory system; Z83.3 Family history of diabetes mellitus; Z79.4 Long term (current) use of insulin; Z86.711 Personal history of pulmonary embolism; Z71.6 Tobacco abuse counseling
CPT/HCPCS: 36415; 70450; 70551; 71045; 71275; 78452; 80053; 81001; 82962; 83735; 83880; 84484; 85025; 85379; 85610; 85730; 87081; 87426; 87804; 93005; 93017; 96365; G0378; J1815; J3490

== ENCOUNTER 2025-01-08 19:18 | Inpatient (IN) | payer MEDICAID ==
[~2025-01-08] VITALS: Ht 162.6 cm; Wt 98.8 kg
[~2025-01-08 19:18] MED LIST changes: -ABAC1TAB3 PO
[2025-01-08 20:52] LABS: Hematocrit 42.3 % (36.0-46.0); Hemoglobin 13.9 g/dL (12.2-16.2); Mean Corpuscular Hemoglobin 27.5 pg (28.0-32.0); Mean Corpuscular Volume 83.8 fL (80.0-100.0); Nucleated Red Blood Cells % 0.0 %
[2025-01-08 21:03] LABS: Alanine Aminotransferase 36 U/L (7-40); Albumin 4.3 g/dL (3.2-4.8); Alkaline Phosphatase 68 U/L (46-116); Anion Gap 7 (5-15); BUN/Creatinine Ratio 19.8 (10.0-20.0); Calcium 9.3 mg/dL (8.7-10.4); Carbon Dioxide 28 mmol/L (20-31); Potassium 3.8 mmol/L (3.5-5.1); Sodium 143 mmol/L (136-145); Total Protein 6.6 g/dL (5.7-8.2)
--- NOTE | 2025-01-08 21:11 | ED.PDOC ---
Back pain HPI HPI Comments HPI: 59-year-old female came to ER via EMS due to fall injury. Patient has chronic left hip pain, had a ground level fall earlier, as her left leg gave way and she fell on her left hip. Claims her left hip hurts more now. Denies any head trauma or loss of consciousness. She does take Eliquis for her Afib Patient was discharged here last Jan 06 and with a Final Diagnosis/Problems List Acute chest pain troponin negative, cardiology consult for Dr. Chaves appreciated , Cardiolite stress test negative Possible community-acquired pneumonia Gram-positive versus Gram-negative Azithromycin, Thu test negative, flu test negative Acute Hypotension: IV fluids Bradycardia Altered mental status Acute kidney injury Elevated d-dimer PE ruled out Diabetes mellitus with hyperglycemia Community-acquired Pneumonia, Gram-positive versus Gram-negative AFib on Eliquis Acute on chronic CHF exacerbation Chronic current smoker: Counseling 20 minutes History of CVA Diabetes HIV Hypertension History of seizures Initial Vitals BP: 103/65 HR: 55 RR: 16 O2: 96 % Temp: 98.5 Past Medical History: Hypertension, diabetes, CVA, CHF, Afib, HIV Past Surgical History: Social History: Denies ETOH, (+)smoking, and drug use. Medications: Allergies: KELSEY: HPI: Poor Historian. Patient has chronic left hip pain. Patient has chronic weakness ambulates with a walker. She fell when she was standing without her walker because her leg gave out. She was unable to get up again because he said when she tried the floor was slippery. REVIEW OF SYSTEMS: CONSTITUTIONAL: Denies acute: fever, diaphoresis, chills, generalized weakness. HEAD: Denies acute: headache, photophobia Eyes: Denies acute: Double vision, vision loss, eye pain, eye discharge. EARS: Denies acute: tinnitus, hearing loss, ear discharge, ear pain, THROAT: Denies acute: sore throat, swelling, difficulty swallowing , pain with swa llowing, change in voice. NECK: Denies acute: neck pain, neck swelling, stiff neck. HEART: Denies acute : chest pain, palpitations, LUNGS: Denies acute: SOB, wheezing, cough, hemoptysis ABDOMEN: Denies acute: abdominal pain, Nausea, Vomiting, diarrhea, melena , hematemesis, hematochezia SKIN: Denies acute: rash, redness, lesions, itchiness. EXTREMITIES: Denies acute: calf pain, numbness, tingling, weakness, denies pain in extremity. Neuro: Denies acute: focal neurological deficit, motor or sensory focal neurological deficit, tremors, seizure like activity, confusion, dizziness, change in mental status, loss of bowel or bladder function, cauda equina like symptoms. : Denies acute: dysuria, hematuria, flank pain, increase in urinary frequency. PSYCH: Denies acute: hallucination, suicidal ideation, homicidal ideation. FEMALE: Denies acute: abnormal vaginal bleeding, foul odor, unusual discharge. PHYSICAL EXAM: General: ---mild-----acute distress, awake and alert. Head: normocephalic, atraumatic. Neck: supple, trachea is midline, no swelling. Throat: Normal phonation. Eyes:, no erythema, no purulent discharge, no proptosis, no icterus. Heart: regular rate, regular rhythm, no significant murmur appreciated. Lungs: no apparent respiratory distress, Able to speak in full sentences. No wheezing, no rhonchi, no crackles. No stridors Clear to auscultation bilaterally. Abdomen: non tender to palpation, non distended, soft, no guarding, no rebound, + bowel sounds. Obese Neuro: Awake, Alert, oriented to name, self, situation, follows commands GCS=15. Speech is normal. Skin: no petechia, no purpura, no cyanosis, non-pale, not jaundice. Lower extremities: --trace b/l- Pitting edema no deformity, no focal swelling, no calf TTP. Patient is neurovascularly intact in the affected left lower extremity where her left hip pain is. Makes eye contact. moves all four extremities. Face: no apparent facial droop. Evaluation of the area of complaint: Patient points to her acute on chronic pain on her left hip region involving the left buttock as well as the left iliac crest and left lumbosacral area. ED COURSE: DISCLAIMER: This medical document was created using an electronic medical record system with voice recognition software and computerized dictation system. Although this document has been carefully reviewed, there might still be some phonetic and typographical errors. Occasional wrong-word or "sound-alike" substitutions may have occurred due to the inherent limitations of voice recognition software. These areas are purely typographical due to imperfections of the software programs and do not reflect any compromise in the patient's medical care. Please read the chart carefully and recognize, using context, where these substitutions have occurred. Chief Complaint: Fall Injury Time Seen by MD: 21:10 Primary Care Provider: unknown Reviewed Notes: Manager Icu Notes Allergies: Coded Allergies: Loperamide (Verified Allergy, Severe, 08/13/23) Nystatin (Verified Allergy, Severe, 08/13/23) Penicillins (Verified Allergy, Severe, 08/13/23) Diphenhydramine (Verified Allergy, Unknown, 09/23/24) Home Meds Active Scripts Furosemide (Lasix) 20 Mg Tb, 1 TAB PO DAILY for 30 Days, #30 TAB 1 Refill Prov:LISA OAKES 12/30/24 Amiodarone HCl (Amiodarone HCl) 200 Mg Tab, 100 MG PO BID for 30 Days, #30 TAB please hold if heart rate remains below 50 / min Prov:LISA OAKES 12/30/24 Insulin Glargine (Lantus) 100 Unit/Ml Inj, 15 UNITS SC BID@0700,2200 for 30 Days, #90 INJ 1 Refill Prov:BETHANY JEFF DO 11/17/24 Reported Medications Insulin Glargine (Basaglar Kwikpen) 100 Unit/Ml Inj, 100 UNITS SC BID for 30 Days, #60 08/18/24 Insulin Lispro (Insulin Lispro Kwikpen) 100 Unit/Ml Inj, 10 UNITS SC DAILY for 100 Days, #15 08/18/24 Cetirizine HCl (Cetirizine Hydrochloride) 10 Mg Tab, 1 TAB PO DAILY for 90 Days, #90 08/18/24 Dapagliflozin Propanediol (Dapagliflozin Propanediol) 5 Mg Tab, 1 TAB PO DAILY for 100 Days, #100 08/18/24 Ferrous Sulfate (Ferosul) 325 Mg Tab, 1 TAB PO DAILY for anemia 06/08/24 Sitagliptin Phosphate (Januvia) 100 Mg Tab, 1 DAILY for 90 Days, #90 06/08/24 Fenofibrate (FENOFIBRATE) 145 Mg Tab, 1 TAB PO DAILY for 90 Days, #90 06/06/24 Cyclobenzaprine HCl (Cyclobenzaprine Hydrochlo) 10 Mg Tab, 1 TAB PO BID PRN for PAIN FOR MUSCLE SPASMS for 30 Days, #15 08/13/23 Famotidine (Famotidine) 20 Mg Tab, 1 TAB PO BID PRN for ACID REFLUX AND ABDOMINAL PAIN for 90 Days, #180 08/13/23 Hydrocodone-Acetaminophen (Hydrocodone/Acetaminophen 5-325 mg) 1 Tab Tab, 2 TAB PO BID 08/13/23 Pregabalin (Pregabalin) 200 Mg Cap, 1 CAP PO TID for 30 Days, #90 08/13/23 Apixaban Base (ELIQUIS) 5 Mg Tab, 1 TAB PO BID for 45 Days, #90 08/13/23 Aspirin (Aspirin) 81 Mg Chw, 1 TAB PO DAILY for 90 Days, #90 08/13/23 Atorvastatin Calcium (ATORVASTATIN CALCIUM) 40 Mg Tab, 1 TAB PO DAILY for 90 Days, #90 08/13/23 Information Source: Patient Mode of Arrival: EMS Past Medical History PAST MEDICAL HISTORY: AFIB, CHF, CKF, CVA, DM, HIV, HTN, Seizures Surgical History: Cholecystectomy, Hernia Repair, Thyroidectomy [employer] ADVIS[employer] History: No Pertinent [employer] History Family History Family History: Reviewed,noncontributory to illness, Unknown Social History Smoker: Cigarettes Alcohol: Denies ETOH Use Drugs: Denies Drug Use Lives In: Home Was a procedure done? Was a procedure done?: No X-Ray, Labs, Meds, VS Vital Signs Date Time Temp Pulse Resp B/P (MAP) Pulse Ox O2 Delivery O2 Flow Rate FiO2 01/08/25 19:39 52 01/08/25 19:25 98.5 55 16 103/65 96 98.5 Lab Test 01/08/25 20:29 Range/Units White Blood Count 7.7 4.4-10.8 10^3/uL Red Blood Count 5.05 4.0-5.20 10^6/uL Hemoglobin 13.9 12.2-16.2 g/dL Hematocrit 42.3 36.0-46.0 % Mean Corpuscular Volume 83.8 80.0-100.0 fL Mean Corpuscular Hemoglobin 27.5 L 28.0-32.0 pg Mean Corpuscular Hemoglobin Concent 32.8 32.0-36.0 g/dL Red Cell Distribution Width 22.6 H 11.8-14.3 % Platelet Count 134 L 140-450 10^3/uL Mean Platelet Volume 10.0 6.9-10.8 fL Neutrophils (%) (Auto) 73.6 37.0-80.0 % Lymphocytes (%) (Auto) 13.8 10.0-50.0 % Monocytes (%) (Auto) 8.6 0.0-12.0 % Eosinophils (%) (Auto) 3.0 0.0-7.0 % Basophils (%) (Auto) 1.0 0.0-2.0 % Neutrophils # (Auto) 5.7 1.6-8.6 10 ^3/uL Lymphocytes # (Auto) 1.1 0.4-5.4 10 ^3/uL Monocytes # (Auto) 0.7 0-1.3 10 ^3/uL Eosinophils # (Auto) 0.2 0-0.8 10 ^3/uL Basophils # (Auto) 0.1 0-0.2 10 ^3/uL Nucleated Red Blood Cells 0.0 % Sodium Level 143 136-145 mmol/L Potassium Level 3.8 3.5-5.1 mmol/L Chloride Level 108 H 98-107 mmol/L Carbon Dioxide Level 28 20-31 mmol/L Anion Gap 7 5-15 Blood Urea Nitrogen 33 H 9-23 mg/dL Creatinine 1.67 H 0.550-1.02 mg/dL Glomerular Filtration Rate Calc 35 >90 mL/min BUN/Creatinine Ratio 19.8 10.0-20.0 Serum Glucose 164 H 74-106 mg/dL Calcium Level 9.3 8.7-10.4 mg/dL Total Bilirubin 0.3 0.2-1.0 mg/dL Aspartate Amino Transferase (AST) 48 H 13-40 U/L Alanine Aminotransferase (ALT) 36 7-40 U/L Alkaline Phosphatase 68 46-116 U/L Total Protein 6.6 5.7-8.2 g/dL Albumin 4.3 3.2-4.8 g/dL [facility] [id number] [place] [id number] Ph: [phone] DIAGNOSTIC IMAGING Diagnostic Imaging Report : [id number] Signed PATIENT: [facility]EL[facility]LEAnders [facility] [id number] UNIT: [id number] : 1965 LOC: ER ROOM / BED: / AGE / SEX: 59 / F ADM STATUS: REG ER SERVICE 04 ORDERING PHYSICIAN: BRIANNA MASON DO PROCEDURE(s): ABPL - CT AB PEL WO CON-NO ORAL OR IV REASON: fall, hip pain ORDER NUMBER(s): [id number], ACCESSION NUMBER(s): [id number] Exam: CT CT AB PEL WO CON-NO ORAL OR IV History: fall, hip pain Comparison Study: CT CT AB PEL WO CON-NO ORAL OR IV on DOS: 11/09/24, CT CT AB PEL WO CON-NO ORAL OR IV on DOS: 06/06/24 TECHNIQUE: Multidetector CT of the abdomen and pelvis was performed from lung bases to pubic symphysis. Imaging was performed without IV contrast. Axial, coronal, and sagittal multiplanar reformats were obtained from the axial data set by the technologist. RADIATION DOSE: CTDI vol 26.25 mGy. DLP 1548.51 mGy.cm Findings: Limited evaluation of the solid organs in the absence of IV contrast. Liver: Unremarkable. Spleen: Unremarkable. Pancreas: Unremarkable. Gallbladder: Prior cholecystectomy. Adrenals: Unremarkable Kidneys: Bilateral nephrolithiasis. No hydronephrosis. Bilateral renal cortical scarring. Pelvic Viscera: Unremarkable. Vasculature: Mild atherosclerotic aortoiliac calcifications. Retroperitoneum: Shotty retroperitoneal nodes. No ascites. Bowel: Colonic diverticulosis without CT evidence of diverticulitis. No bowel obstruction. The appendix is normal. Musculoskeletal: Acute displaced fractures of the left L1 through L4 transverse processes. Possible acute nondisplaced fracture of the left posterior 12th rib. Mild scoliosis. Soft tissues: Unremarkable Lungs: The lung bases are clear. Impression: 1. Acute displaced fractures of the left L1 through L4 transverse processes. Possible acute nondisplaced fracture of the left posterior 12th rib. 2. Additional findings as detailed. ATED BY: MELISSA MCKINLEY MD DICTATED DATE/TIME: 01/08/252157 SIGNED BY: MELISSA MCKINLEY MD SIGNED DATE/TIME: 01/08/252157 CC: Time of 1ST Reevaluation: 21:10 Reevaluation 1ST: Unchanged Patient Education/Counseling: Diagnosis, Treatment Family Education/Counseling: No Family Present SEPSIS Sepsis Screen Date sepsis recognized/suspect: Jan 08, 2025 Time Sepsis recognized/suspect: 1924 Recent Procedure: No On Antibiotic Therapy: No Respiratory Rate >20: No Heart Rate >90: No Temp<36 C (96.8 F) or >38.3 C: No SBP <90 or MAP <65 mmHG: No New Acute Mental Status Change: No Is the patient on CPAP, BIPAP,: No Physician Orders Electrocardigram (01/08/25 19:53) Ct Ab Pel Wo Con-No Oral Or Iv (01/08/25 20:05) Vital Signs Date Time Temp Pulse Resp B/P (MAP) Pulse Ox O2 Delivery O2 Flow Rate FiO2 01/08/25 19:39 52 01/08/25 19:25 98.5 55 16 103/65 96 98.5 Laboratory Tests Test 01/08/25 20:29 White Blood Count 7.7 10^3/uL (4.4-10.8) Departure 1 Departure Time of Disposition: 22:29 Impression: Primary Impression: Lumbar transverse process fracture Additional Impressions: Rib fracture Fall Unsteady gait Disposition: ADMITTED INPATIENT Admit to: [facility] Condition: Guarded Discharged With: Self Critical Care Note Critical Care Time?: No I personally scribed for BRIANNA MASON DO ([email or web address]) on 01/08/25 at 21:11. Electronically submitted by Adan Arguello ([employer]). I personally scribed for BRIANNA MASON DO ([email or web address]) on 01/08/25 at 22:42. Electronically submitted by Adan Arguello ([employer]). I personally scribed for BRIANNA MASON DO ([email or web address]) on 01/09/25 at 00:45. Electronically submitted by Adan Arguello ([employer]). BRIANNA MASON DO Jan 08, 2025 21:11
[2025-01-08 21:57] LABS: Bilirubin, Total 0.3 mg/dL (0.2-1.0); Blood Urea Nitrogen 33 mg/dL (9-23); Chloride 108 mmol/L (98-107); Glucose 164 mg/dL (74-106)
--- NOTE | 2025-01-08 22:01 | DVH ---
Exam: CT CT AB PEL WO CON-NO ORAL OR IV History: fall, hip pain Comparison Study: CT CT AB PEL WO CON-NO ORAL OR IV on DOS: 11/09/24, CT CT AB PEL WO CON-NO ORAL OR I V on DOS: 06/06/24 TECHNIQUE: Multidetector CT of the abdomen and pelvis was performed from lung bases to pubic symphysi s. Imaging was performed without IV contrast. Axial, coronal, and sagittal multiplanar reformats were obtained from the axial data set by the technologist. RADIATION DOSE: CTDI vol 26.25 mGy. DLP 1548.51 mGy.cm Findings: Limited evaluation of the solid organs in the absence of IV contrast. Liver: Unremarkable. Spleen: Unremarkable. Pancreas: Unremarkable. Gallbladder: Prior cholecystectomy. Adrenals: Unremarkable Kidneys: Bilateral nephrolithiasis. No hydronephrosis. Bilateral renal cortical scarring. Pelvic Viscera: Unremarkable. Vasculature: Mild atherosclerotic aortoiliac calcifications. Retroperitoneum: Shotty retroperitoneal nodes. No ascites. Bowel: Colonic diverticulosis without CT evidence of diverticulitis. No bowel obstruction. The appen shanta is normal. Musculoskeletal: Acute displaced fractures of the left L1 through L4 transverse processes. Possible a cute nondisplaced fracture of the left posterior 12th rib. Mild scoliosis. Soft tissues: Unremarkable Lungs: The lung bases are clear. Impression: 1. Acute displaced fractures of the left L1 through L4 transverse processes. Possible acute nondispla elsa fracture of the left posterior 12th rib. 2. Additional findings as detailed.
[2025-01-09] MEDS ORDERED: MORPHINE SULFATE INJ 2 MG/ml SYRG IV PRN (05:00)
--- NOTE | 2025-01-09 05:19 | DVHHPRES ---
History of Present Illness Resident Creating Document: FELICE FIGUEREDO RESIDENT History of Present Illness 59-year-old female with previous history of type 2 diabetes mellitus, hypertension, AFib on apixaban presents to the ER with a history of fall. She reports standing by the patio door and she suddenly fell down. He did not lose consciousness or was not dizzy before the fall episode. She hit her head on the right side and she had a left-sided hip and back pain. Her right toes are also turning blue for 1 month which progressively increasing since 2 or 3 days. She also reports having a central chest pain, no relation with breathing or movement, 5/10 in intensity,not associated with diaphoresis or vomiting or nausea. The patient reports having reproducible exertional leg pain, which relieved by rest. She denies any shortness of breaths, fever, abdominal pain, vomiting, or any other complaints. Past medical history: Hypertension, diabetes mellitus, atrial fibrillation, questionable peripheral arterial disease Past surgical history: None Medications: Amiodarone, sitagliptin, apixaban, aspirin, atorvastatin Smoking history: 13 pack years. 5 cigarettes a day for last 50 years Allergies: Imodium, nystatin, Benadryl, penicillin PCP: None Code status: DNR DNI Review of Systems Cardiovascular: Chest Pain Musculoskeletal: other (Left hip pain), back pain Allergies: Coded Allergies: Loperamide (Verified Allergy, Severe, 08/13/23) Nystatin (Verified Allergy, Severe, 08/13/23) Penicillins (Verified Allergy, Severe, 08/13/23) Diphenhydramine (Verified Allergy, Unknown, 09/23/24) Medications Current Medications Medications Dose Ordered Sig/Uyen Route Start Time Stop Time Status Last Admin Dose Admin Sodium Chloride 1,000 ml @ 60 mls/hr [id number] IV 01/09/25 05:00 Morphine Sulfate 2 mg Q4HPRN PRN IV 01/09/25 05:00 Exam Vital Signs Vital Signs Date Time Temp Pulse Resp B/P (MAP) Pulse Ox O2 Delivery O2 Flow Rate FiO2 01/09/25 04:34 97.6 62 16 113/62 (79) 97 97.6 Exam Pt is lying on bed General Appearance: Alert, Oriented X3, Cooperative, Mild distress HEENT: Atraumatic, Mucous membranes moist/pink Respiratory: Clear to auscultation, Normal air movement, No added sounds Cardiovascular: Regular rate, Normal S1, Normal S2, No murmurs Abdominal/ : Active bowel sounds, Soft, no distention, mild tenderness in epigastric and periumbilical region Extremities: No edema, Normal pulses, arteria dorsalis pedis palpable, No tenderness/swelling Skin: No Significant rash, except past surgical scars Neuro: Normal speech, sensorimotor deficits none Psych/Mental Status: Mental status NL, Mood NL Nurse was there as operations mgr during examination Labs/Xrays Labs Test 01/08/25 20:29 Range/Units White Blood Count 7.7 4.4-10.8 10^3/uL Red Blood Count 5.05 4.0-5.20 10^6/uL Hemoglobin 13.9 12.2-16.2 g/dL Hematocrit 42.3 36.0-46.0 % Mean Corpuscular Volume 83.8 80.0-100.0 fL Mean Corpuscular Hemoglobin 27.5 L 28.0-32.0 pg Mean Corpuscular Hemoglobin Concent 32.8 32.0-36.0 g/dL Red Cell Distribution Width 22.6 H 11.8-14.3 % Platelet Count 134 L 140-450 10^3/uL Mean Platelet Volume 10.0 6.9-10.8 fL Neutrophils (%) (Auto) 73.6 37.0-80.0 % Lymphocytes (%) (Auto) 13.8 10.0-50.0 % Monocytes (%) (Auto) 8.6 0.0-12.0 % Eosinophils (%) (Auto) 3.0 0.0-7.0 % Basophils (%) (Auto) 1.0 0.0-2.0 % Neutrophils # (Auto) 5.7 1.6-8.6 10 ^3/uL Lymphocytes # (Auto) 1.1 0.4-5.4 10 ^3/uL Monocytes # (Auto) 0.7 0-1.3 10 ^3/uL Eosinophils # (Auto) 0.2 0-0.8 10 ^3/uL Basophils # (Auto) 0.1 0-0.2 10 ^3/uL Nucleated Red Blood Cells 0.0 % Sodium Level 143 136-145 mmol/L Potassium Level 3.8 3.5-5.1 mmol/L Chloride Level 108 H 98-107 mmol/L Carbon Dioxide Level 28 20-31 mmol/L Anion Gap 7 5-15 Blood Urea Nitrogen 33 H 9-23 mg/dL Creatinine 1.67 H 0.550-1.02 mg/dL Glomerular Filtration Rate Calc 35 >90 mL/min BUN/Creatinine Ratio 19.8 10.0-20.0 Serum Glucose 164 H 74-106 mg/dL Calcium Level 9.3 8.7-10.4 mg/dL Total Bilirubin 0.3 0.2-1.0 mg/dL Aspartate Amino Transferase (AST) 48 H 13-40 U/L Alanine Aminotransferase (ALT) 36 7-40 U/L Alkaline Phosphatase 68 46-116 U/L Total Protein 6.6 5.7-8.2 g/dL Albumin 4.3 3.2-4.8 g/dL SEPSIS Sepsis Screen Date sepsis recognized/suspect: Jan 08, 2025 Time Sepsis recognized/suspect: 1924 Recent Procedure: No On Antibiotic Therapy: No Respiratory Rate >20: No Heart Rate >90: No Temp<36 C (96.8 F) or >38.3 C: No SBP <90 or MAP <65 mmHG: No New Acute Mental Status Change: No Is the patient on CPAP, BIPAP,: No Physician Orders Allergies (01/09/25 04:46) Sodium Chloride 0.9% (01/09/25 05:00) Oxygen Per Hour (01/09/25 04:46) Complete Blood Count (01/10/25 04:00) Comprehensive Metabolic Panel (01/10/25 04:00) Npo (Nothing By Mouth) Diet (01/09/25 Breakfast) Morphine Sulfate Injection (01/09/25 05:00) Admit (01/09/25 04:46) Notify Of Changes From Base (01/09/25 04:46) Disintegrator Feeder For 24 Hours (01/09/25 04:46) Troponin-I Hs (01/09/25 04:53) Troponin-I Hs (01/09/25 05:53) Troponin-I Hs (01/09/25 07:53) * Orthopedic Consult (01/09/25 05:12) Vital Signs Date Time Temp Pulse Resp B/P (MAP) Pulse Ox O2 Delivery O2 Flow Rate FiO2 01/09/25 04:34 97.6 62 16 113/62 (79) 97 97.6 Laboratory Tests Test 01/08/25 20:29 White Blood Count 7.7 10^3/uL (4.4-10.8) Assessment/Plan Assessment/Plan Back pain left hip pain and headache followed by fall -CT abdomen and pelvis: Acute displaced fracture of the left L1 through L4 transverse processes, possible acute nondisplaced fracture of the left posterior 12th rib -pain management and IV fluid -orthopedics consult done TOÑA likely due to VMN Creatinine 1.67 BUN 33 IV fluids ? CAD Atrial fibrillation Apixaban 5 mg 1 tablet p.o. b.i.d. Amiodarone 200 mg p.o. b.i.d. Aspirin 81 mg daily ?PAD Atorvastatin 40 mg Diabetes mellitus Insulin glargine 100 units subcutaneous b.i.d. Sitagliptin 100 mg 1 daily Hypertension GI prophylaxis: Pantoprazole DVT prophylaxis: Apixaban Diet: NPO until orthopedics consult Goals of care discussed with the patient for more than 27 minutes: Full code status Case discussed with Dr. Sanchez, patient and RN Plan discussed with: Patient, Other (RN) My Orders Orders - FELICE FIGUEREDO RESIDENT Procedure Category Date Status Time Allergies SANJU 01/09/25 In Process 04:46 Sodium Chloride 0.9% PHA 01/09/25 In Process 05:00 Oxygen Per Hour RT 01/09/25 Transmitted 04:46 Complete Blood Count LAB 01/10/25 Verified 04:00 Comprehensive LAB 01/10/25 Verified Metabolic Panel 04:00 Npo (Nothing By DIET 01/09/25 Transmitted Mouth) Diet Breakfast Morphine Sulfate PHA 01/09/25 In Process Injection 05:00 Admit ADMIT 01/09/25 Transmitted 04:46 Notify Of Changes SANJU 01/09/25 In Process From Base 04:46 Disintegrator Feeder For SANJU 01/09/25 In Process 24 Hours 04:46 Troponin-I Hs LAB 01/09/25 Logged 04:53 Troponin-I Hs LAB 01/09/25 Logged 05:53 Troponin-I Hs LAB 01/09/25 Logged 07:53 * Orthopedic Consult CONS 01/09/25 Transmitted 05:12 Date of Service: Jan 09, 2025 Billing Provider: EDUARDO ASNCHEZ MD Common Visit Codes: [id number] INP/OBS CARE (HIGH) BEA,FELICE HEMPHILL Jan 09, 2025 05:19 EDUARDO SANCHEZ MD Jan 10, 2025 13:52
[2025-01-09] MEDS: SODIUM CHLORIDE 0.9% 1,000 ML IV SCH (05:53)
--- NOTE | 2025-01-09 06:47 | ECG ---
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
[2025-01-09] MEDS ORDERED: ACETAMINOPHEN 500 MG TAB or CAP PO PRN (08:15)
[2025-01-09] MEDS ORDERED: DEXTROSE (50%) 50ML SYRG IV PRN (08:15)
--- NOTE | 2025-01-09 09:17 | DVH ---
CHEST RADIOGRAPH Indication: pre op/pain Technique: Single frontal view of the chest was obtained Comparison: CT CT ANGIO CHEST CONTRAST on DOS: 01/02/25, XY CHEST PORTABLE on DOS: 01/02/25, XY CHEST P ORTABLE on DOS: 12/28/24, XY CHEST XRAY 1 VIEW on DOS: 12/04/24, XY CHEST PORTABLE on DOS: 11/08/24 FINDINGS: Lines and Tubes: None Lungs: No focal consolidation. Pleura: No effusion. No pneumothorax. Cardiomediastinal contours: Unremarkable Bones: No acute osseous abnormality. IMPRESSION: No acute cardiopulmonary disease.
[2025-01-09 09:39] LABS: Magnesium 2.2 mg/dL (1.6-2.6)
[2025-01-09 09:43] LABS: INR 1.0 (0.9-1.15); Partial Thromboplastin Time 24.5 SEC (24.5-34.5); Prothrombin Time 10.6 sec (9.3-11.8)
[2025-01-09 09:47] LABS: Creatine Kinase IFCC 684.0 U/L (34-145)
--- NOTE | 2025-01-09 11:10 | DVHPNRES ---
Progress Note Date Seen: Jan 09, 2025 Resident Creating Document: GERRI LINTON RESIDENT Has the PT tested + for MRSA If YES, has PT been informed?: No Medical Necessity Reason Pt with a Central, PICC or Fol: No Subjective Review of Systems Patient is a 59-year-old female with past history of insulin dependent type 2 diabetes, hypertension, AFib on apixaban, HIV diagnosed in 1997, CKD, history of fall, presented to the ED with a fall and left hip pain. She states that she was standing by the patio when she suddenly fell backward due to her left leg giving away. She states that she did not feel dizzy, did not lose consciousness, but did hit her head after she fell she developed left-sided 10/10 hip pain and back pain which is nonradiating. She also states she has stabbing, dull, pain in her chest, is not radiating She also states that she has hemorrhoids which bleed all the time, also states she intermittently chokes when drinking water or eating. Patient is shows her last seizure episode was 2 weeks ago but did not lose consciousness, or confused after and just felt tired. Surgical history: Hernia surgery, cholecystectomy, carpal tunnel surgery Personal history: Smokes cigarettes a day stairs, denies alcohol use or drug use Code status: DNR, DNI confirmed with patient 01/09/2025 Patient is seen in the ER. She is alert x3, in moderate distress, says she has 8/10 , constant pain in the left hip and lower back, nonradiating. She also states that she has a headache. Patient states that she has also bleeding from her hemorrhoids. She had past history of fall and broke her thumbs when she was with physical therapy. She lives in a facility, states that her left leg gave out due to peripheral neuropathy and she fell back in hit her head but did not lose consciousness. She denies any nausea, vomiting, dizziness, diarrhea. She does have constipation. Spinal surgeon was consulted. , denies fever pending CT abdomen and pelvis showed Acute displaced fracture of the left L1 through L4 transverse processes, possible acute nondisplaced fracture of the left posterior 12th rib. Left hip X-ray showed Moderate to severe degenerative changes of bilateral hips. Constitutional: Denies weight loss, fever and chills. HEENT: Denies changes in vision and hearing. Respiratory: Denies shortness of breath and cough Cardiovascular: Denies chest discomfort or palpitations GI: Mild abdominal distention, reports improvement on abdominal discomfort. : Denies dysuria and urinary frequency. Musculoskeletal: Denies myalgias and joint pain Skin: Denies rash and pruritus. Neurological: Denies dizziness, headache, vision or hearing problems Objective vital signs Vital Sign Date Time Temp Pulse Resp B/P (MAP) Pulse Ox O2 Delivery O2 Flow Rate FiO2 01/09/25 09:39 97.8 48 14 134/66 (88) 97 97.8 medications Current Medications Medications Dose Ordered Sig/Uyen Route Start Time Stop Time Status Last Admin Dose Admin Sodium Chloride 1,000 ml @ 60 mls/hr [id number] IV 01/09/25 05:00 Morphine Sulfate 2 mg Q4HPRN PRN IV 01/09/25 05:00 Diagnostic Test (Pha) 1 strip Q6HR 01/09/25 12:00 Insulin Human Regular Q6HR SC 01/09/25 12:00 Dextrose 50 ml UD PRN IV 01/09/25 08:15 Acetaminophen 500 mg Q4HPRN PRN PO 01/09/25 08:15 Acetaminophen/ Hydrocodone Bitart 1 tab Q4HPRN PRN PO 01/09/25 08:15 Examination General: Patient alert and oriented in person, place and time. Patient following commands. HEENT: Normocephalic, atraumatic, moist mucous membranes Respiratory/pulmonary: Clear lungs bilaterally, vesicular murmurs present in almost all lung porter, no associated crackles or wheezes. Cardiovascular: Normal heart sounds S1 and S2 with no associated murmurs Abdomen: Lower back tenderness, left hip tenderness Extremities: Mild Bilateral pitting edema Peripheral Pulses: 3+ Radial (R). 3+ Radial (L). 3+ Dorsalis pedis (R). 3+ Dorsalis pedis(L) Skin: No rashes or pruritus, there is no sacral edema present at this time. 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 - hip x-ray showed Moderate to severe degenerative changes of bilateral hips. - orthopedics consult done, pending #Likely rhabdomyolysis # TOÑA on CKD 3b likely due to VMN - IV fluids # Sinus bradycardia, asymptomatic #Paroxysmal atrial fibrillation with intermittent slow ventricular rate #Chronic compensated HRpEF - LVEF 55-60%, mild LVH, diastolic dysfunction on last echo - currently in sinus - resume amiodarone - switched apixaban to Lovenox 90 mg # Uncontrolled Diabetes mellitus [id number] - Insulin glargine 10units subcutaneous b.i.d. # history of HIV # Hypertension - continue home meds # hyperlipidemia - atorvastatin #Tobacco use # Vit.D deficiency - given vitamin-D 90402 units per week GI prophylaxis: Pantoprazole DVT prophylaxis: Lovenox Diet: Cardiac diet Goals of care addressed with the patient for more than 27 minutes: DNR/DNI confirmed with patient Case discussed with , patient and nurse Plan discussed with: Patient, Other (RN) My Orders My Orders Orders - GERRI LINTON RESIDENT Procedure Category Date Status Time Urinalysis LAB 01/09/25 Logged 07:57 Date of Service: Jan 09, 2025 Billing Provider: MATILDA VILLA MD Common Visit Codes: [id number] INP/OBS CARE(HIGH) GERRI LINTON Jan 09, 2025 11:10 MATILDA VILLA MD Jan 11, 2025 16:59
[2025-01-09 11:12] VITALS: PULSE 50; RESP 16; O2SAT 97
[2025-01-09] MEDS: ERGOCALCIFEROL 50,000 UNIT(1.25MG) CAP PO SCH (11:15)
[2025-01-09] MEDS: ACCU-CHEK COMFORT CURVE STRIP VI SCH (12:00)
[2025-01-09] MEDS: InsuLIN REG 1unit/0.01ml Soln (100units/ml) SC SCH (12:00)
--- NOTE | 2025-01-09 14:18 | DVH ---
CLINICAL INDICATION: fall and pain TECHNIQUE: XY L HIP COMPLETE XRAY, XY R HIP COMPLETE XRAY Comparison: XY L HIP COMPLETE XRAY on DOS: 12/29/24, XY R HIP COMPLETE XRAY on DOS: 12/29/24, XY L HIP COMPLETE XRAY on DOS: 06/06/24 FINDINGS/IMPRESSION: : There is no evidence of acute fracture or dislocation. Soft tissues are unremarkable. Moderate to severe degenerative changes of bilateral hips.
[2025-01-09 14:41] VITALS: BP 121/56; PULSE 50; RESP 20; TEMP 98; O2SAT 98
[2025-01-09] MEDS: HYDROcodone-ACET 10/325MG TAB PO PRN (15:44)
[2025-01-09 16:08] VITALS: PULSE 47; O2SAT 98
[2025-01-09 16:32] VITALS: BP 148/70; PULSE 50; RESP 20; TEMP 98.7; O2SAT 98
[2025-01-09 20:00] VITALS: PULSE 53; PULSE 56; RESP 18; O2SAT 99
[2025-01-09 21:00] VITALS: BP 119/67; PULSE 56; RESP 18; TEMP 97.6; O2SAT 99
[2025-01-09] MEDS: ATORVASTATIN 20 MG TAB PO SCH (21:31)
[2025-01-09] MEDS: ENOXAPARIN SOD 100 MG/1 ML SYRINGE SC SCH (21:32)
[2025-01-10] VITALS (8 sets, daily range): BP systolic 105–135; BP diastolic 47–82; PULSE 47–54; RESP 16–18; TEMP 96.3–97.7; O2SAT 97–100
[2025-01-10 07:31] LABS: Hematocrit 41.4 % (36.0-46.0); Hemoglobin 13.8 g/dL (12.2-16.2); Mean Corpuscular Hemoglobin 27.9 pg (28.0-32.0); Mean Corpuscular Volume 83.4 fL (80.0-100.0); Nucleated Red Blood Cells % 0.1 %
[2025-01-10 07:50] LABS: Alanine Aminotransferase 35 U/L (7-40); Albumin 4.1 g/dL (3.2-4.8); Alkaline Phosphatase 67 U/L (46-116); Anion Gap 8 (5-15); BUN/Creatinine Ratio 14.9 (10.0-20.0); Bilirubin, Total 0.4 mg/dL (0.2-1.0); Blood Urea Nitrogen 20 mg/dL (9-23); Calcium 9.5 mg/dL (8.7-10.4); Carbon Dioxide 27 mmol/L (20-31); Chloride 106 mmol/L (98-107); Potassium 3.7 mmol/L (3.5-5.1); Sodium 141 mmol/L (136-145); Total Protein 6.6 g/dL (5.7-8.2)
[2025-01-10 07:59] LABS: Glucose 128 mg/dL (74-106)
--- NOTE | 2025-01-10 10:23 | DVHPNRES ---
Progress Note Date Seen: Jan 10, 2025 Resident Creating Document: GERRI LINTON RESIDENT Has the PT tested + for MRSA If YES, has PT been informed?: No Medical Necessity Reason Pt with a Central, PICC or Fol: No Subjective Review of Systems Patient is a 59-year-old female with past history of insulin dependent type 2 diabetes, hypertension, AFib on apixaban, HIV diagnosed in 1997, CKD, history of fall, presented to the ED with a fall and left hip pain. She states that she was standing by the patio when she suddenly fell backward due to her left leg giving away. She states that she did not feel dizzy, did not lose consciousness, but did hit her head after she fell she developed left-sided 10/10 hip pain and back pain which is nonradiating. She also states she has stabbing, dull, pain in her chest, is not radiating She also states that she has hemorrhoids which bleed all the time, also states she intermittently chokes when drinking water or eating. Patient is shows her last seizure episode was 2 weeks ago but did not lose consciousness, or confused after and just felt tired. Surgical history: Hernia surgery, cholecystectomy, carpal tunnel surgery Personal history: Smokes cigarettes a day stairs, denies alcohol use or drug use Code status: DNR, DNI confirmed with patient 01/09/2025 Patient is seen in the ER. She is alert x3, in moderate distress, says she has 8/10 , constant pain in the left hip and lower back, nonradiating. She also states that she has a headache. Patient states that she has also bleeding from her hemorrhoids. She had past history of fall and broke her thumbs when she was with physical therapy. She lives in a facility, states that her left leg gave out due to peripheral neuropathy and she fell back in hit her head but did not lose consciousness. She denies any nausea, vomiting, dizziness, diarrhea. She does have constipation. Spinal surgeon was consulted. , pending. CT abdomen and pelvis showed Acute displaced fracture of the left L1 through L4 transverse processes, possible acute nondisplaced fracture of the left posterior 12th rib. Left hip X-ray showed Moderate to severe degenerative changes of bilateral hips. 01/10/2025 Patient seen at bedside she is alert x3, in moderate distress, says she has the same pain which is constant in the left hip and lower back. She also states a mild headache. Spinal surgeon consulted and stated for PT to evaluate and provide treatment recommendations for safe discharge and treatment recommendations, Muscle relaxers to reduce spasms to the fractured areas transverse process 1-4 in the left. There are no barriers to discharge from a spine surgery perspective. Patient given cyclobenzaprine 10 mg p.o. t.i.d. p ossible discharge tomorrow Objective vital signs Vital Sign Date Time Temp Pulse Resp B/P (MAP) Pulse Ox O2 Delivery O2 Flow Rate FiO2 01/10/25 08:11 96.5 50 16 135/73 (93) 100 96.5 01/10/25 08:00 Room Air* 0 21 Total Intake and Output 01/09/25 01/09/25 01/10/25 15:00 23:00 07:00 Intake Total 0 ml 250 ml 477 ml Balance 0 ml 250 ml 477 ml medications Current Medications Medications Dose Ordered Sig/Uyen Route Start Time Stop Time Status Last Admin Dose Admin Sodium Chloride 1,000 ml @ 60 mls/hr [id number] IV 01/09/25 05:00 Morphine Sulfate 2 mg Q4HPRN PRN IV 01/09/25 05:00 Diagnostic Test (Pha) 1 strip Q6HR 01/09/25 12:00 01/10/25 05:41 1 STRIP Insulin Human Regular Q6HR SC 01/09/25 12:00 01/10/25 05:41 2 UNITS Dextrose 50 ml UD PRN IV 01/09/25 08:15 Acetaminophen 500 mg Q4HPRN PRN PO 01/09/25 08:15 Acetaminophen/ Hydrocodone Bitart 1 tab Q4HPRN PRN PO 01/09/25 08:15 01/10/25 08:58 1 TAB Ergocalciferol 50,000 unit Q7D PO 01/09/25 11:15 Enoxaparin Sodium 90 mg BID SC 01/09/25 22:00 01/10/25 09:37 90 MG Atorvastatin Calcium 40 mg HS PO 01/09/25 22:00 01/09/25 21:31 40 MG Examination General: Patient alert and oriented in person, place and time. Patient following commands. HEENT: Normocephalic, atraumatic, moist mucous membranes Respiratory/pulmonary: Clear lungs bilaterally, vesicular murmurs present in almost all lung porter, no associated crackles or wheezes. Cardiovascular: Normal heart sounds S1 and S2 with no associated murmurs Abdomen: Lower back tenderness, left hip tenderness Extremities: Mild Bilateral pitting edema Peripheral Pulses: 3+ Radial (R). 3+ Radial (L). 3+ Dorsalis pedis (R). 3+ Dorsalis pedis(L) Skin: No rashes or pruritus, there is no sacral edema present at this time. 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 - hip x-ray showed Moderate to severe degenerative changes of bilateral hips. - orthopedics consult done, stated PT to evaluate and provide treatment recommendations for safe discharge and treatment recommendations, Muscle relaxers to reduce spasms #Likely rhabdomyolysis # TOÑA on CKD 3b likely due to VMN - IV fluids # Sinus bradycardia, asymptomatic #Paroxysmal atrial fibrillation with intermittent slow ventricular rate #Chronic compensated HRpEF - LVEF 55-60%, mild LVH, diastolic dysfunction on last echo - currently in sinus - resume amiodarone - switched apixaban to Lovenox 90 mg # Uncontrolled Diabetes mellitus [id number]-3.1 - Insulin glargine 10units subcutaneous b.i.d. # history of HIV # Hypertension - continue home meds # hyperlipidemia - atorvastatin #Tobacco use # Vit.D deficiency - given vitamin-D 60691 units per week GI prophylaxis: Pantoprazole DVT prophylaxis: Lovenox Diet: Cardiac diet Goals of care addressed with the patient for more than 27 minutes: DNR/DNI confirmed with patient Case discussed with , patient and nurse Plan discussed with: Patient My Orders My Orders Orders - GERRI LINTON RESIDENT Procedure Category Date Status Time Ergocalciferol PHA 01/09/25 In Process (Vitamin D 50,000 11:15 Dietary Evaluation Review Recommendations by RD: Dietary education by RD Comments: 1) Add 45g CCHO restriction to cardiac diet 2) Encourage optimal PO intake 3) Refer to outpatient RD/CD[facility] for diabetes education 4) Follow-up with cardiology 5) Continue to monitor I&O, labs, and skin integrity Expected Outcomes/Goals: 1) appetite and labs to improve 2) wound to improve 3) gradual wt loss 4) f/u in 3-5 days Date of Service: Jan 10, 2025 Billing Provider: JENNYFER MCDANIEL MD Common Visit Codes: [id number] INP/OBS CARE(HIGH) GERRI LINTON RESIDENT Jan 10, 2025 10:23 JENNYFER MCDANIEL MD Jan 11, 2025 21:05
--- NOTE | 2025-01-10 11:50 | DVHINCON2 ---
Consultation - Spinal Surgery Date Seen: Jan 10, 2025 Referring Physician Referring Physician Attending Doctor: Zhao Barboza Resident Reason for Consultation Acute TP fractures History of Present Illness History of Present Illness History of Present Illness 59-year-old female with previous history of type 2 diabetes mellitus, hypertension, AFib on apixaban presents to the ER with a history of fall. She reports standing by the patio door and she suddenly fell down. He did not lose consciousness or was not dizzy before the fall episode. She hit her head on the right side and she had a left-sided hip and back pain. Her right toes are also turning blue for 1 month which progressively increasing since 2 or 3 days. She also reports having a central chest pain, no relation with breathing or movement, 5/10 in intensity,not associated with diaphoresis or vomiting or nausea. The patient reports having reproducible exertional leg pain, which relieved by rest. She denies any shortness of breaths, fever, abdominal pain, vomiting, or any other complaints. Spine surgery H&P Patient has been having low back pain for a while, however she does get around with a walker and is considered very independent. She lost her footing when her left leg gave out on her while she was in the restroom causing her fall which br ought her into the emergency room. Patient does have diabetic neuropathies. However she is having left hip and low back pain. She has had no prior surgeries of the spine. Past Medical/Surgical History Past Medical/Surgical History Past medical history: Hypertension, diabetes mellitus, atrial fibrillation, questionable peripheral arterial disease Past surgical history: None Family and Social History Family and Social History Medications: Amiodarone, sitagliptin, apixaban, aspirin, atorvastatin Smoking history: 13 pack years. 5 cigarettes a day for last 50 years Allergies: Imodium, nystatin, Benadryl, penicillin PCP: None Code status: DNR DNI Allergies and medications Allergies: Coded Allergies: Loperamide (Verified Allergy, Severe, 08/13/23) Nystatin (Verified Allergy, Severe, 08/13/23) Penicillins (Verified Allergy, Severe, 08/13/23) Diphenhydramine (Verified Allergy, Unknown, 09/23/24) Home Meds Active Scripts Furosemide (Lasix) 20 Mg Tb, 1 TAB PO DAILY for 30 Days, #30 TAB 1 Refill Prov:LISA OAKES RESIDENT 12/30/24 Amiodarone HCl (Amiodarone HCl) 200 Mg Tab, 100 MG PO BID for 30 Days, #30 TAB please hold if heart rate remains below 50 / min Prov:LISA OAKES RESIDENT 12/30/24 Insulin Glargine (Lantus) 100 Unit/Ml Inj, 15 UNITS SC BID@0700,2200 for 30 Days, #90 INJ 1 Refill Prov:JEFFBETHANY Andersen Laura DO 11/17/24 Reported Medications Insulin Glargine (Basaglar Kwikpen) 100 Unit/Ml Inj, 100 UNITS SC BID for 30 Days, #60 08/18/24 Insulin Lispro (Insulin Lispro Kwikpen) 100 Unit/Ml Inj, 10 UNITS SC DAILY for 100 Days, #15 08/18/24 Cetirizine HCl (Cetirizine Hydrochloride) 10 Mg Tab, 1 TAB PO DAILY for 90 Days, #90 08/18/24 Dapagliflozin Propanediol (Dapagliflozin Propanediol) 5 Mg Tab, 1 TAB PO DAILY for 100 Days, #100 08/18/24 Ferrous Sulfate (Ferosul) 325 Mg Tab, 1 TAB PO DAILY for anemia 06/08/24 Sitagliptin Phosphate (Januvia) 100 Mg Tab, 1 DAILY for 90 Days, #90 06/08/24 Fenofibrate (FENOFIBRATE) 145 Mg Tab, 1 TAB PO DAILY for 90 Days, #90 06/06/24 Cyclobenzaprine HCl (Cyclobenzaprine Hydrochlo) 10 Mg Tab, 1 TAB PO BID PRN for PAIN FOR MUSCLE SPASMS for 30 Days, #15 08/13/23 Famotidine (Famotidine) 20 Mg Tab, 1 TAB PO BID PRN for ACID REFLUX AND ABDOMINAL PAIN for 90 Days, #180 08/13/23 Hydrocodone-Acetaminophen (Hydrocodone/Acetaminophen 5-325 mg) 1 Tab Tab, 2 TAB PO BID 08/13/23 Pregabalin (Pregabalin) 200 Mg Cap, 1 CAP PO TID for 30 Days, #90 08/13/23 Apixaban Base (ELIQUIS) 5 Mg Tab, 1 TAB PO BID for 45 Days, #90 08/13/23 Aspirin (Aspirin) 81 Mg Chw, 1 TAB PO DAILY for 90 Days, #90 08/13/23 Atorvastatin Calcium (ATORVASTATIN CALCIUM) 40 Mg Tab, 1 TAB PO DAILY for 90 Days, #90 08/13/23 Review of systems Review of Systems: MSK:Abnormal (low back pain ), NEURO:Normal (Sensation is intact to all extremities bilateral lower extremities are 5/5, she does have some mild pain generated with a left knee raise to resistance however still strong) Examination Vital signs imaging Exam: CT CT AB PEL WO CON-NO ORAL OR IV History: fall, hip pain Comparison Study: CT CT AB PEL WO CON-NO ORAL OR IV on DOS: 11/09/24, CT CT AB PEL WO CON-NO ORAL OR IV on DOS: 06/06/24 TECHNIQUE: Multidetector CT of the abdomen and pelvis was performed from lung bases to pubic symphysis. Imaging was performed without IV contrast. Axial, coronal, and sagittal multiplanar reformats were obtained from the axial data set by the technologist. RADIATION DOSE: CTDI vol 26.25 mGy. DLP 1548.51 mGy.cm Findings: Limited evaluation of the solid organs in the absence of IV contrast. Liver: Unremarkable. Spleen: Unremarkable. Pancreas: Unremarkable. Gallbladder: Prior cholecystectomy. Adrenals: Unremarkable Kidneys: Bilateral nephrolithiasis. No hydronephrosis. Bilateral renal cortical scarring. Pelvic Viscera: Unremarkable. Vasculature: Mild atherosclerotic aortoiliac calcifications. Retroperitoneum: Shotty retroperitoneal nodes. No ascites. Bowel: Colonic diverticulosis without CT evidence of diverticulitis. No bowel obstruction. The appendix is normal. Musculoskeletal: Acute displaced fractures of the left L1 through L4 transverse processes. Possible acute nondisplaced fracture of the left posterior 12th rib. Mild scoliosis. Soft tissues: Unremarkable Lungs: The lung bases are clear. Impression: 1. Acute displaced fractures of the left L1 through L4 transverse processes. Possible acute nondisplaced fracture of the left posterior 12th rib. 2. Additional findings as detailed. ATED BY: MELISSA MCKINLEY MD DICTATED DATE/TIME: 01/08/25 2158 Vital Signs Date Time Temp Pulse Resp B/P (MAP) Pulse Ox O2 Delivery O2 Flow Rate FiO2 01/10/25 08:11 96.5 50 16 135/73 (93) 100 96.5 01/10/25 08:00 Room Air* 0 21 Medications Current Medications Medications (Trade) Dose Ordered Sig/Uyen Route PRN Reason Start Time Stop Time Status Last Admin Diagnostic Test (Pha) (Accu-Chek Comfort Curve T) 1 strip Q6HR 01/09/25 12:00 01/10/25 05:41 Insulin Human Regular (InsuLIN R) Q6HR SC 01/09/25 12:00 01/10/25 05:41 Enoxaparin Sodium (Lovenox) 90 mg BID SC 01/09/25 22:00 01/10/25 09:37 Atorvastatin Calcium (Lipitor) 40 mg HS PO 01/09/25 22:00 01/09/25 21:31 Laboratory Labs Test 01/10/25 05:50 01/09/25 17:48 01/09/25 08:50 01/09/25 06:27 Range/Units White Blood Count 5.9 4.4-10.8 10^3/uL Red Blood Count 4.96 4.0-5.20 10^6/uL Hemoglobin 13.8 12.2-16.2 g/dL Hematocrit 41.4 36.0-46.0 % Mean Corpuscular Volume 83.4 80.0-100.0 fL Mean Corpuscular Hemoglobin 27.9 L 28.0-32.0 pg Mean Corpuscular Hemoglobin Concent 33.4 32.0-36.0 g/dL Red Cell Distribution Width 22.5 H 11.8-14.3 % Platelet Count 116 L 140-450 10^3/uL Mean Platelet Volume 10.2 6.9-10.8 fL Neutrophils (%) (Auto) 70.5 37.0-80.0 % Lymphocytes (%) (Auto) 16.0 10.0-50.0 % Monocytes (%) (Auto) 8.3 0.0-12.0 % Eosinophils (%) (Auto) 4.0 0.0-7.0 % Basophils (%) (Auto) 1.2 0.0-2.0 % Neutrophils # (Auto) 4.1 1.6-8.6 10 ^3/uL Lymphocytes # (Auto) 0.9 0.4-5.4 10 ^3/uL Monocytes # (Auto) 0.5 0-1.3 10 ^3/uL Eosinophils # (Auto) 0.2 0-0.8 10 ^3/uL Basophils # (Auto) 0.1 0-0.2 10 ^3/uL Nucleated Red Blood Cells 0.1 % Sodium Level 141 136-145 mmol/L Potassium Level 3.7 3.5-5.1 mmol/L Chloride Level 106 98-107 mmol/L Carbon Dioxide Level 27 20-31 mmol/L Anion Gap 8 5-15 Blood Urea Nitrogen 20 # 9-23 mg/dL Creatinine 1.34 H 0.550-1.02 mg/dL Glomerular Filtration Rate Calc 45 >90 mL/min BUN/Creatinine Ratio 14.9 10.0-20.0 Serum Glucose 128 H 74-106 mg/dL Calcium Level 9.5 8.7-10.4 mg/dL Total Bilirubin 0.4 0.2-1.0 mg/dL Aspartate Amino Transferase (AST) 48 H 13-40 U/L Alanine Aminotransferase (ALT) 35 7-40 U/L Alkaline Phosphatase 67 46-116 U/L Total Protein 6.6 5.7-8.2 g/dL Albumin 4.1 3.2-4.8 g/dL POC Glucose 188 H 70-106 mg/dl Prothrombin Time 10.6 9.3-11.8 sec Prothrombin Time INR 1.00 0.9-1.15 Activated Partial Thromboplast Time 24.5 24.5-34.5 SEC B-Type Natriuretic Peptide 7.84 0-100 pg/mL Vitamin B12 Level 395 211-911 pg/mL Vitamin D 25-Hydroxy 24.2 L 30.0-100 ng/mL Magnesium Level 2.2 1.6-2.6 mg/dL Troponin I High Sensitivity 3 L </=34 ng/L Thyroid Stimulating Hormone (TSH) 1.72 0.55-4.78 uIU/mL Test 01/08/25 20:29 Range/Units Hemoglobin A1c 8.1 H <5.7 % A1C Examination: GENERAL:Normal, HEENT:Normal, NECK:Normal, LUNGS:Normal, CVS:Normal (No complaints of chest pain), ABDOMEN:Normal (No nausea vomiting or diarrhea), MSK:Normal (5/5 to all extremities), SKIN:Normal (Multiple areas of discoloration to the lower extremities, shiny skin), NEURO:Normal (Sensation is intact range of motion to the left leg is limited due to pain), :Normal Problem List/Assessment/Plan Problems: (1) Lumbar transverse process fracture Assessment and Plan Acute displaced fractures of the left L1 through L4 transverse processes continue care per admitting team discretion PT to evaluate and provide treatment recommendations for safe discharge and treatment recommendations Muscle relaxers to reduce spasms to the fractured areas transverse process 1-4 in the left There are no barriers to discharge from a spine surgery perspective Patient can follow up with her primary care doctor for repeat CT scan in 6-12 weeks to check healing if she continues to have pain Patient would benefit from the MRI as an outpatient to evaluate some vacuum disc phenomenon present on her CT scan Call with questions Liu Talley [facility] Orthopaedic Spine Surgery nurse practitioner For Dr Heike Painter Patient was examined, chart reviewed, labs evaluated, and diagnostic studies and findings analyzed. Case was discussed with Dr. Jason Painter who formulated the plan of care. This medical document was created using an electronic medical record system with [email or web address] dictation system. Although this document has been carefully reviewed, there might still be some phonetic and typographical errors. These areas are purely typographical due to imperfections of the software programs, and do not reflect any compromise in the patient's medical care. Plan discussed with Plan discussed with: Patient, Other (Anjali gonzalez [id number]) MARCELA TALLEY NP Jan 10, 2025 11:50
[2025-01-10] MEDS: CYCLOBENZAPRINE HCL 10 MG TAB PO SCH (14:00)
[2025-01-11 01:00] VITALS: BP 116/71; PULSE 50; RESP 16; TEMP 98; O2SAT 96
[2025-01-11 05:00] VITALS: BP 118/58; PULSE 48; RESP 16; TEMP 97.9; O2SAT 97
[2025-01-11 08:00] VITALS: PULSE 50; PULSE 54; RESP 16; O2SAT 99
[2025-01-11 08:02] LABS: Hematocrit 39.5 % (36.0-46.0); Hemoglobin 13.3 g/dL (12.2-16.2); Mean Corpuscular Hemoglobin 28.0 pg (28.0-32.0); Mean Corpuscular Volume 82.8 fL (80.0-100.0); Nucleated Red Blood Cells % 0.1 %
[2025-01-11 08:16] LABS: Anion Gap 6 (5-15); Carbon Dioxide 28 mmol/L (20-31); Potassium 3.7 mmol/L (3.5-5.1); Sodium 142 mmol/L (136-145)
[2025-01-11 08:17] LABS: Calcium 9.6 mg/dL (8.7-10.4)
[2025-01-11 08:18] LABS: Chloride 108 mmol/L (98-107)
[2025-01-11 08:22] LABS: BUN/Creatinine Ratio 14.3 (10.0-20.0); Blood Urea Nitrogen 16 mg/dL (9-23)
[2025-01-11 08:26] LABS: Creatine Kinase IFCC 188 U/L (34-145); Glucose 147 mg/dL (74-106)
[2025-01-11 08:52] VITALS: BP 131/71; PULSE 53; RESP 16; TEMP 98; O2SAT 98
[2025-01-11 09:04] LABS: Anisocytosis Slight; Ovalocytes FEW
[2025-01-11] MEDS ORDERED: CYCL-611 PO (11:08)
[2025-01-11] MEDS ORDERED: HYDR-4902 PO (11:08)
[2025-01-11] MEDS ORDERED: CHOL1TAB42 PO (11:10)
[2025-01-11 12:17] VITALS: TEMP 36.7
[2025-01-11 13:00] VITALS: BP 143/90; PULSE 69; RESP 17; TEMP 97.6; O2SAT 99
--- NOTE | 2025-01-11 15:18 | DVHDSRES ---
Discharge Summary Date of Admission Resident Creating Document: JAY JAY TOLEDO RESIDENT Jan 09, 2025 at 04:46 Date of Discharge: Jan 11, 2025 Admitting Diagnosis back pain Labs/Diagnostic Data: Laboratory Results Test 01/11/25 12:13 01/11/25 06:50 01/10/25 05:50 01/09/25 08:50 POC Glucose 207 mg/dl (70-106) White Blood Count 4.0 10^3/uL (4.4-10.8) Red Blood Count 4.77 10^6/uL (4.0-5.20) Hemoglobin 13.3 g/dL (12.2-16.2) Hematocrit 39.5 % (36.0-46.0) Mean Corpuscular Volume 82.8 fL (80.0-100.0) Mean Corpuscular Hemoglobin 28.0 pg (28.0-32.0) Mean Corpuscular Hemoglobin Concent 33.8 g/dL (32.0-36.0) Red Cell Distribution Width 21.6 % (11.8-14.3) Platelet Count 100 10^3/uL (140-450) Mean Platelet Volume 9.8 fL (6.9-10.8) Neutrophils (%) (Auto) 64.3 % (37.0-80.0) Lymphocytes (%) (Auto) 20.6 % (10.0-50.0) Monocytes (%) (Auto) 9.9 % (0.0-12.0) Eosinophils (%) (Auto) 4.3 % (0.0-7.0) Basophils (%) (Auto) 0.9 % (0.0-2.0) Neutrophils # (Auto) 2.6 10 ^3/uL (1.6-8.6) Lymphocytes # (Auto) 0.8 10 ^3/uL (0.4-5.4) Monocytes # (Auto) 0.4 10 ^3/uL (0-1.3) Eosinophils # (Auto) 0.2 10 ^3/uL (0-0.8) Basophils # (Auto) 0 10 ^3/uL (0-0.2) Nucleated Red Blood Cells 0.1 % Platelet Estimate Decreased Anisocytosis (manual) Slight Ovalocytes Few Sodium Level 142 mmol/L (136-145) Potassium Level 3.7 mmol/L (3.5-5.1) Chloride Level 108 mmol/L (98-107) Carbon Dioxide Level 28 mmol/L (20-31) Anion Gap 6 (5-15) Blood Urea Nitrogen 16 mg/dL (9-23) Creatinine 1.12 mg/dL (0.550-1.02) Glomerular Filtration Rate Calc 56 mL/min (>90) BUN/Creatinine Ratio 14.3 (10.0-20.0) Serum Glucose 147 mg/dL (74-106) Calcium Level 9.6 mg/dL (8.7-10.4) Creatine Kinase 188 U/L (34-145) Total Bilirubin 0.4 mg/dL (0.2-1.0) Aspartate Amino Transferase (AST) 48 U/L (13-40) Alanine Aminotransferase (ALT) 35 U/L (7-40) Alkaline Phosphatase 67 U/L (46-116) Total Protein 6.6 g/dL (5.7-8.2) Albumin 4.1 g/dL (3.2-4.8) Prothrombin Time 10.6 sec (9.3-11.8) Prothrombin Time INR 1.00 (0.9-1.15) Activated Partial Thromboplast Time 24.5 SEC (24.5-34.5) B-Type Natriuretic Peptide 7.84 pg/mL (0-100) Vitamin B12 Level 395 pg/mL (211-911) Vitamin D 25-Hydroxy 24.2 ng/mL (30.0-100) Test 01/09/25 06:27 01/08/25 20:29 Magnesium Level 2.2 mg/dL (1.6-2.6) Troponin I High Sensitivity 3 ng/L (</=34) Thyroid Stimulating Hormone (TSH) 1.72 uIU/mL (0.55-4.78) Hemoglobin A1c 8.1 % A1C (<5.7) Other Laboratory Tests 01/11/25 06:50 Brief Hx & Hospital Course: Patient is a 59-year-old female with past history of insulin dependent type 2 diabetes, hypertension, AFib on apixaban, HIV diagnosed in 1997, CKD, history of fall, presented to the ED with a fall and left hip pain. She states that she was standing by the patio when she suddenly fell backward due to her left leg giving away. She states that she did not feel dizzy, did not lose consciousness, but did hit her head after she fell she developed left-sided 10/10 hip pain and back pain which is nonradiating. She also states she has stabbing, dull, pain in her chest, is not radiating She also states that she has hemorrhoids which bleed all the time, also states she intermittently chokes when drinking water or eating. Patient is shows her last seizure episode was 2 weeks ago but did not lose consciousness, or confused after and just felt tired. Surgical history: Hernia surgery, cholecystectomy, carpal tunnel surgery Personal history: Smokes cigarettes a day stairs, denies alcohol use or drug use Code status: DNR, DNI confirmed with patient Brief history of hospitalization: Patient came in with constant pain in the left hip and lower back which was nonradiating. She has a history of Mechanical fall. X-rays of the hip and CT abdomen pelvis was done. X-ray showed Moderate to severe degenerative changes of bilateral hips and CT showed Acute displaced fracture of the left L1 through L4 transverse processes, possible acute nondisplaced fracture of the left posterior 12th rib. an orthopedics consultation was done and PT evaluation was done. muscle relaxers were given to reduce spasm. Patient has stage III CKD and on labs we saw creatinine was slightly elevated. We gave her IV fluids for it. Patient also has sinus bradycardia which is asymptomatic, paroxysmal atrial fibrillation with intermittent slow ventricular rate and chronic compensated HFpEF 55-60%. Resumed her medication amiodarone and switched apixaban to Lovenox 90 mg. For patient's uncontrolled diabetes mellitus with an HbA1c of 8.1, insulin glargine 10 units subcutaneously b.i.d. was given. For patient's hypertension we have continued home medications and for hyperlipidemia we have given atorvastatin. Patient also uses tobacco and has been counseled regarding cessation and the dangers of continuing it. For patient's vitamin-D deficiency seen in labs we have repleted it. Patient has been counseled regarding her diagnosis and spinal surgeon consulted who stated patient is safe to discharge with muscle relaxants. Patient has been suggested to repeat a CT scan in 6-12 weeks to check for healing of her fractures and an MRI for vacuum disc phenomenon seen on CT. Patient has verbalized understanding and will be discharged on [facility] [place] for pain and vitamin-D supplementation. She has agreed to the discharge plan and we have discussed her diagnosis, tests done as well as home medications and it side effects. General: Patient alert and oriented in person, place and time. Patient following commands. HEENT: Normocephalic, atraumatic, moist mucous membranes Respiratory/pulmonary: Clear lungs bilaterally, vesicular murmurs present in almost all lung porter, no associated crackles or wheezes. Cardiovascular: Normal heart sounds S1 and S2 with no associated murmurs Abdomen: Lower back tenderness, left hip tenderness Extremities: Mild Bilateral pitting edema Peripheral Pulses: 3+ Radial (R). 3+ Radial (L). 3+ Dorsalis pedis (R). 3+ Dorsalis pedis(L) Skin: No rashes or pruritus, there is no sacral edema present at this time. Neurological: Intact cranial nerves with no focal neurologic deficits Operations or Procedures Exam: CT CT AB PEL WO CON-NO ORAL OR IV History: fall, hip pain Impression: 1. Acute displaced fractures of the left L1 through L4 transverse processes. Possible acute nondisplaced fracture of the left posterior 12th rib. 2. Additional findings as detailed. CHEST RADIOGRAPH Indication: pre op/pain IMPRESSION: No acute cardiopulmonary disease. XY L HIP COMPLETE XRAY, XY R HIP COMPLETE XRAY CLINICAL INDICATION: fall and pain FINDINGS/IMPRESSION: : There is no evidence of acute fracture or dislocation. Soft tissues are unremarkable. Moderate to severe degenerative changes of bilateral hips. 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 # Sinus bradycardia, asymptomatic #Paroxysmal atrial fibrillation with intermittent slow ventricular rate #Chronic compensated HRpEF # Uncontrolled Diabetes mellitus [id number] # history of HIV # Hypertension # hyperlipidemia # Tobacco use dependency # Vit.D deficiency Discharge Disposition: Home Discharge Instruct/Medications Diet: Consistent carbohydrate, Cardiac 2g Na,low cholest Activity: No Restrictions, As Tolerated Follow Up/Referral: Please follow up with PCP in 10 days Please repeat a CT in 6-12 weeks to check healing MRI suggested outpatient for vacuum disc phenomenon seen in CT Please follow up in discharge clinic within 7 days Medications: [place] 5/325 Q6 PRN Flexeril 10 mg Q 8 hours PRN Vitamin-D 2000 units every day for 30 days Resume all home medications Scheduled Amiodarone HCl (Amiodarone HCl), 100 MG PO BID Apixaban Base (Eliquis), 1 TAB PO BID, (Reported) Aspirin (Aspirin), 1 TAB PO DAILY, (Reported) Atorvastatin Calcium (Atorvastatin Calcium), 1 TAB PO DAILY, (Reported) Cetirizine HCl (Cetirizine Hydrochloride), 1 TAB PO DAILY, (Reported) Cholecalciferol (Vitamin D-3), 2,000 UNIT PO DAILY Cyclobenzaprine HCl (Cyclobenzaprine Hydrochlo), 10 MG PO TID Dapagliflozin Propanediol (Dapagliflozin Propanediol), 1 TAB PO DAILY, (Reported) Fenofibrate (Fenofibrate), 1 TAB PO DAILY, (Reported) Ferrous Sulfate (Ferosul), 1 TAB PO DAILY, (Reported) Furosemide (Lasix), 1 TAB PO DAILY Hydrocodone-Acetaminophen (Hydrocodone/Acetaminophen 5-325 mg), 2 TAB PO BID, (Reported) Insulin Glargine (Basaglar Kwikpen), 100 UNITS SC BID, (Reported) Insulin Glargine (Lantus), 15 UNITS SC BID@0700,2200 Insulin Lispro (Insulin Lispro Kwikpen), 10 UNITS SC DAILY, (Reported) Pregabalin (Pregabalin), 1 CAP PO TID, (Reported) Sitagliptin Phosphate (Januvia), 1 DAILY, (Reported) Scheduled PRN Cyclobenzaprine HCl (Cyclobenzaprine Hydrochlo), 1 TAB PO BID PRN for PAIN FOR MUSCLE SPASMS, (Reported) Famotidine (Famotidine), 1 TAB PO BID PRN for ACID REFLUX AND ABDOMINAL PAIN, (Reported) Hydrocodone-Acetaminophen (Hydrocodone Bitartrate/AC 5-325 mg), 1 TAB PO Q6HP PRN Discharge Statement: "Patient was advised to return to the ER or call 911 if any headaches, dizziness, shortness of breath, chest pain, abdominal pain, bleeding, fevers, or worsening of medical condition. Patient was counseled about treatment plan, medications, possible side effects, patientverbalized understanding. All questions were answered to the best of my ability. This discharge took greater then 30 minutes in planning, reviewing documentation, counseling the patient, and discussing with other team members." ASSESSMENT ASSESSMENT Assessment Acute displaced fracture of the left L1 through L4 transverse processes Intractable back pain due to mechanical fall Date of Service: Jan 11, 2025 Billing Provider: JENNYFER MCDANIEL MD Common Visit Codes: 46119-VWZ/OBS DISCH DAY >30min JAY JAY TOLEDO RESIDENT Jan 11, 2025 15:18 JENNYFER MCDANIEL MD Jan 11, 2025 21:06
== END 2025-01-11 16:15 | disposition home or self-care (01) | DRG 347 ==
LOC: EDBD 19:18 → EDUNIT# 19:18 → ER 19:18 → OVERFLOW 01-09 04:46 → CENTRAL 01-09 13:30 → TELE-CENTR 01-09 15:30
PROVIDERS: ADMIT Student in an Organized Health Care Education/Training Program; ATTEND Student in an Organized Health Care Education/Training Program
DX: S32.018A Other fracture of first lumbar vertebra, initial encounter for closed fracture (principal); N17.0 Acute kidney failure with tubular necrosis; M62.82 Rhabdomyolysis; S22.32XA Fracture of one rib, left side, initial encounter for closed fracture; I50.9 Heart failure, unspecified; Z66 Do not resuscitate; E11.22 Type 2 diabetes mellitus with diabetic chronic kidney disease; I48.0 Paroxysmal atrial fibrillation; E78.5 Hyperlipidemia, unspecified; M51.26 Other intervertebral disc displacement, lumbar region; I25.10 Atherosclerotic heart disease of native coronary artery without angina pectoris; I48.91 Unspecified atrial fibrillation; E55.9 Vitamin D deficiency, unspecified; F17.210 Nicotine dependence, cigarettes, uncomplicated; R26.81 Unsteadiness on feet; E11.40 Type 2 diabetes mellitus with diabetic neuropathy, unspecified; S32.048A Other fracture of fourth lumbar vertebra, initial encounter for closed fracture; N18.32 Chronic kidney disease, stage 3b; I13.0 Hypertensive heart and chronic kidney disease with heart failure and stage 1 through stage 4 chronic kidney disease, or unspecified chronic kidney disease; Z86.73 Personal history of transient ischemic attack (TIA), and cerebral infarction without residual deficits; Z79.01 Long term (current) use of anticoagulants; Z88.0 Allergy status to penicillin; Z88.8 Allergy status to other drugs, medicaments and biological substances; Z79.4 Long term (current) use of insulin; Z79.84 Long term (current) use of oral hypoglycemic drugs; Z79.82 Long term (current) use of aspirin; Z90.49 Acquired absence of other specified parts of digestive tract; W18.39XA Other fall on same level, initial encounter; Y93.89 Activity, other specified; Y92.89 Other specified places as the place of occurrence of the external cause; Y99.8 Other external cause status
CPT/HCPCS: 36415; 71045; 73502; 74176; 80048; 80053; 82306; 82550; 82607; 82962; 83036; 83735; 83880; 84443; 84484; 85025; 85610; 85730; 86850; 86900; 86901; 93005; 97163; G0378; J1815

== ENCOUNTER 2025-01-21 17:11 | Emergency (ER) | payer MEDICAID ==
[~2025-01-21] VITALS: Ht 162.6 cm; Wt 95.4 kg
[~2025-01-21 17:11] MED LIST changes: +CHOL1TAB42 PO; +HYDR-4902 PO
[2025-01-21 17:14] VITALS: BP 141/66; PULSE 70; RESP 16; TEMP 98.9; O2SAT 96
--- NOTE | 2025-01-21 18:56 | DVH ---
Date: 01/21/2025 06:38 PM Examination: XY KUB ABDOMEN SINGLE VIEW History: r/o insulin needle FB abdomen Comparison: None TECHNIQUE: Frontal views of the abdomen was obtained. FINDINGS: Bowel gas pattern is unremarkable. The lung bases are unremarkable. No acute osseous abnormality identified. IMPRESSION: 1. Nonobstructive bowel gas pattern. 2. Dextroscoliosis lumbar spine 3. Surgical clips right upper quadrant most likely from previous cholecystectomy. 4. Large stool burden throughout the colon.
--- NOTE | 2025-01-21 21:06 | ED.PDOC ---
History of Present Illness(SKN HPI Comments 59 year old female presents to ER with complaints of foreign body to abdomen x 2 days. Patient presents to ER with concern that an insulin needle broke off into her right periumbilical area during an insulin injection 2 days ago. She denies any pain and presents to ER in no distress, without any foreign body palpable/appreciated to abdomen. Denies fever, skin drainage/redness, n/v, abdominal pain or any further symptoms/complaints Chief Complaint: Puncture Wound Time Seen by MD: 18:18 Primary Care Provider: [facility] History of Present Illness: Nurses Notes, Medications, Allergies Allergies: Coded Allergies: Loperamide (Verified Allergy, Severe, 08/13/23) Nystatin (Verified Allergy, Severe, 08/13/23) Penicillins (Verified Allergy, Severe, 08/13/23) Diphenhydramine (Verified Allergy, Unknown, 09/23/24) Home Meds Active Scripts Cholecalciferol (VITAMIN D-3) 2,000 Unit Tab, 2000 UNIT PO DAILY, #30 TAB Prov:JENNYFER MCDANIEL MD 01/11/25 Hydrocodone-Acetaminophen (Hydrocodone Bitartrate/AC 5-325 mg) 1 Tab Tab, 1 TAB PO Q6HP PRN, #30 TAB Prov:JENNYFER MCDANIEL MD 01/11/25 Cyclobenzaprine HCl (Cyclobenzaprine Hydrochlo) 10 Mg Tab, 10 MG PO TID, #30 TAB Prov:JENNYFER MCDANIEL MD 01/11/25 Furosemide (Lasix) 20 Mg Tb, 1 TAB PO DAILY for 30 Days, #30 TAB 1 Refill Prov:LISA OAKES 12/30/24 Amiodarone HCl (Amiodarone HCl) 200 Mg Tab, 100 MG PO BID for 30 Days, #30 TAB please hold if heart rate remains below 50 / min Prov:LISA OAKES 12/30/24 Insulin Glargine (Lantus) 100 Unit/Ml Inj, 15 UNITS SC BID@0700,2200 for 30 Days, #90 INJ 1 Refill Prov:BETHANY EJFF DO 11/17/24 Reported Medications Insulin Glargine (Basaglar Kwikpen) 100 Unit/Ml Inj, 100 UNITS SC BID for 30 Days, #60 08/18/24 Insulin Lispro (Insulin Lispro Kwikpen) 100 Unit/Ml Inj, 10 UNITS SC DAILY for 100 Days, #15 08/18/24 Cetirizine HCl (Cetirizine Hydrochloride) 10 Mg Tab, 1 TAB PO DAILY for 90 Days, #90 08/18/24 Dapagliflozin Propanediol (Dapagliflozin Propanediol) 5 Mg Tab, 1 TAB PO DAILY for 100 Days, #100 08/18/24 Ferrous Sulfate (Ferosul) 325 Mg Tab, 1 TAB PO DAILY for anemia 06/08/24 Sitagliptin Phosphate (Januvia) 100 Mg Tab, 1 DAILY for 90 Days, #90 06/08/24 Fenofibrate (FENOFIBRATE) 145 Mg Tab, 1 TAB PO DAILY for 90 Days, #90 06/06/24 Cyclobenzaprine HCl (Cyclobenzaprine Hydrochlo) 10 Mg Tab, 1 TAB PO BID PRN for PAIN FOR MUSCLE SPASMS for 30 Days, #15 08/13/23 Famotidine (Famotidine) 20 Mg Tab, 1 TAB PO BID PRN for ACID REFLUX AND ABDOMINAL PAIN for 90 Days, #180 08/13/23 Hydrocodone-Acetaminophen (Hydrocodone/Acetaminophen 5-325 mg) 1 Tab Tab, 2 TAB PO BID 08/13/23 Pregabalin (Pregabalin) 200 Mg Cap, 1 CAP PO TID for 30 Days, #90 08/13/23 Apixaban Base (ELIQUIS) 5 Mg Tab, 1 TAB PO BID for 45 Days, #90 08/13/23 Aspirin (Aspirin) 81 Mg Chw, 1 TAB PO DAILY for 90 Days, #90 08/13/23 Atorvastatin Calcium (ATORVASTATIN CALCIUM) 40 Mg Tab, 1 TAB PO DAILY for 90 Days, #90 08/13/23 Information Source: Patient Mode of Arrival: Ambulatory Past Medical History PAST MEDICAL HISTORY: AFIB, CHF, CKF, CVA, DM, HIV, HTN, Seizures Surgical History: Cholecystectomy, Hernia Repair, Thyroidectomy APPLICATIONS SPECIALIST History: No Pertinent APPLICATIONS SPECIALIST History Family History Family History: Unknown Social History Smoker: Cigarettes, Less Than 1 Pack/Day Alcohol: Denies ETOH Use Drugs: Denies Drug Use Lives In: Home Constitutional: denies: chills, diaphoresis, fatigue, fever, malaise, sweats, weakness, others EENTM: denies: blurred vision, double vision, ear bleeding, ear discharge, ear drainage, ear pain, ear ringing, eye pain, eye redness, hearing loss, mouth pain, mouth swelling, nasal discharge, nose bleeding, nose congestion, nose pain, photophobia, tearing, throat pain, throat swelling, voice changes, others Respiratory: denies: cough, hemoptysis, orthopnea, SOB at rest, shortness of breath, SOB with excertion, stridor, wheezing, others Cardiovascular: denies: chest pain, dizzy spells, diaphoresis, Dyspnea on exertion, edema, irregular heart beat, left arm pain, lightheadedness, palpitations, PND, syncope, others Gastrointestinal: denies: abdomen distended, abdominal pain, blood streaked bowels, constipated, diarrhea, dysphagia, difficulty swallowing, hematemesis, melena, nausea, poor appetite, poor fluid intake, rectal bleeding, rectal pain, vomiting, others Genitourinary: denies: abnormal vagina bleeding, burning, dyspareunia, dysuria, flank pain, frequency, hematuria, incontinence, pain, , vagina discharge, urgency, others Neurological: denies: dizziness, fainting, headache, left sided numbness, left sided weakness, numbness, paresthesia, pre-existing deficit, right sided numbness, right sided weakness, seizure, speech problems, tingling, tremors, weakness, others Musculoskeletal: denies: back pain, gout, joint pain, joint swelling, muscle pain, muscle stiffness, neck pain, others Integumetry: reports: others (As stated in HPI) Allergic/Immunocompromised: denies: Difficulty Healing, Frequent Infections, Hives, Itching, others Hematologic/Lymphatic: denies: anemia, blood clots, easy bleeding, easy bruising, swollen glands, others Endocrine: denies: excessive hunger, excessive sweating, excessive thirst, excessive urination, flushing, intolerance to cold, intolerance to heat, u nexplained weight gain, unexplained weight loss, others Psychiatric: denies: anxiety, bipolar disorder, depression, hopeless, panic disorder, schizophrenia, sleepless, suicidal, others Physical Exam General Appearance: No Apparent Distress HEENT: PERRL/EOMI Neck: Full Range of Motion, Non-Tender, Normal Respiratory: Chest Non-Tender, Lungs Clear, No Accessory Muscle Use, No Respiratory Distress, Normal Breath Sounds Cardiovascular: No Murmur, No Gallop, Regular Rate/Rhythm Breast Exam: Deferred Gastrointestinal: No Organomegaly, Non Tender, No Pulsatile Mass, Normal Bowel Sounds, Soft, Other (No palpable/appreciable foreign body noted. No signs of infection to abdomen appreciated.) Genitalia: Deferred Pelvic: Deferred Rectal: Deferred Extremities: Normal capillary refill, Normal range of motion Neurologic: Alert, No Motor Deficits, Normal Affect, Normal Mood, No Sensory Deficits Cerebellar Function: Normal Reflexes: Normal Skin: Dry, Normal Color, Warm Lymphatic: No Adenopathy Was a procedure done? Was a procedure done?: No Sedation Sedation?: No Differential Diagnosis (INTG) Differential Diagnosis: Cellulitis Abscess: Abscess Differential Diagnosis: Retained Foreign Body X-Ray, Labs, Meds, VS Vital Signs Date Time Temp Pulse Resp B/P (MAP) Pulse Ox O2 Delivery O2 Flow Rate FiO2 01/21/25 17:14 98.9 70 16 141/66 96 98.9 [facility]: [id number]: [id number] : 1965 LOC: ER ROOM / BED: / AGE / SEX: 59 / F ADM STATUS: REG ER SERVICE 17 ORDERING PHYSICIAN: NUZHAT ONTIVEROS PROCEDURE(s): KUB - KUB ABDOMEN SINGLE VIEW REASON: r/o insulin needle FB abdomen ORDER NUMBER(s): [id number], ACCESSION NUMBER(s): [id number] Date: 01/21/2025 06:38 PM Examination: XY KUB ABDOMEN SINGLE VIEW History: r/o insulin needle FB abdomen Comparison: None TECHNIQUE: Frontal views of the abdomen was obtained. FINDINGS: Bowel gas pattern is unremarkable. The lung bases are unremarkable. No acute osseous abnormality identified. IMPRESSION: 1. Nonobstructive bowel gas pattern. 2. Dextroscoliosis lumbar spine 3. Surgical clips right upper quadrant most likely from previous cholecystectomy. 4. Large stool burden throughout the colon. ATED BY: JABARI FIGUEROA Jr., DO DICTATED DATE/TIME: 01/21/251852 SIGNED BY: JABARI FIGUEROA Jr., SIGNED DATE/TIME: 09/03/25 1853 CC: KUB abdomen reviewed No foreign body seen on physical exam and no foreign body identified on KUB Patient clinically well appearing with vitals stable Advised to monitor for redness/swelling/drainage or increasing pain/fever and was advised to return to ER immediately if any of these symptoms develop Discussed with patient that she may benefit for outpatient CT abdomen/pelvis for further evaluation Also discussed with patient that if retained foreign body is confirmed on future imaging that she may require general surgery consultation for evaluation and potential removal Advised PCP in 1-2 days Patient verbalized understanding and agreeable with current plan of care Advised to return to ER immediately if symptoms worsen Images Reviewed?: Images reviewed and evaluated by me Time of 1ST Reevaluation: 20:54 Reevaluation 1ST: N/A Patient Education/Counseling: Diagnosis, Treatment, Prognosis, Need For Follow Up Family Education/Counseling: No Family Present SEPSIS Sepsis Screen Date sepsis recognized/suspect: Jan 21, 2025 Time Sepsis recognized/suspect: 1716 Recent Procedure: No On Antibiotic Therapy: No Respiratory Rate >20: No Heart Rate >90: No Temp<36 C (96.8 F) or >38.3 C: No SBP <90 or MAP <65 mmHG: No New Acute Mental Status Change: No Is the patient on CPAP, BIPAP,: No Physician Orders Kub Abdomen Single View (01/21/25 18:18) Vital Signs Date Time Temp Pulse Resp B/P (MAP) Pulse Ox O2 Delivery O2 Flow Rate FiO2 01/21/25 17:14 98.9 70 16 141/66 96 98.9 Departure 1 Departure Time of Disposition: 21:14 Impression: Primary Impression: Foreign body of abdominal wall Qualified Codes: S30.851A - Superficial foreign body of abdominal wall, initial encounter Disposition: HOME / SELF CARE / HOMELESS Condition: Stable Discharged With: Friend Critical Care Note Critical Care Time?: No Stability Stability form required: No Heart Score Heart Score: Heart Score Response (Comments) Value History N/A 0 EKG N/A 0 Age N/A 0 Risk Factors N/A 0 Troponin N/A 0 Total 0 NUZHAT ONTIVEROS Jan 21, 2025 21:06
== END 2025-01-21 22:43 | disposition home or self-care (01) ==
LOC: ER 17:11
DX: T18.9XXA Foreign body of alimentary tract, part unspecified, initial encounter (principal); I11.0 Hypertensive heart disease with heart failure; I50.9 Heart failure, unspecified; Z90.89 Acquired absence of other organs; Z98.890 Other specified postprocedural states; Z90.49 Acquired absence of other specified parts of digestive tract; Z88.0 Allergy status to penicillin; Z88.1 Allergy status to other antibiotic agents; Z86.73 Personal history of transient ischemic attack (TIA), and cerebral infarction without residual deficits; Z79.899 Other long term (current) drug therapy; W44.8XXA Other foreign body entering into or through a natural orifice, initial encounter; Y93.89 Activity, other specified; Y92.89 Other specified places as the place of occurrence of the external cause; Y99.8 Other external cause status
CPT/HCPCS: 74018

== ENCOUNTER 2025-04-17 09:25 | Inpatient (IN) | payer MEDICAID ==
[~2025-04-17] VITALS: Ht 160 cm; Wt 70.0 kg
[2025-04-17 10:14] LABS: Hematocrit 45.2 % (36.0-46.0); Hemoglobin 15.4 g/dL (12.2-16.2); Mean Corpuscular Hemoglobin 30.3 pg (28.0-32.0); Mean Corpuscular Volume 89.1 fL (80.0-100.0); Nucleated Red Blood Cells % 0.1 %
--- NOTE | 2025-04-17 10:19 | DVH ---
XY CHEST PORTABLE, HISTORY: sob COMPARISON: XY CHEST PORTABLE on DOS: 01/24/25, XY CHEST XRAY 1 VIEW on DOS: 01/09/25, CT CT ANGIO CHEST CONTRAST on DOS: 01/02/25 XY CHEST PORTABLE on DOS: 01/24/25, XY CHEST XRAY 1 VIEW on DOS: 01/09/25, CT CT ANGIO CHEST CONTRAST on DOS: 01/02/25 TECHNICAL DATA: 1 view of the chest was obtained. FINDINGS: Lines and tubes: None Cardiomediastinal silhouette: normal Pulmonary vasculature: normal Lung expansion: normal Lung airspace: normal Lung interstitium: normal Pleura: normal Pneumothorax: no Bones: Unremarkable Other: no IMPRESSION: No acute intrathoracic abnormality.
[2025-04-17 10:21] LABS: Chloride 105 mmol/L (98-107); Potassium 4.5 mmol/L (3.5-5.1); Sodium 142 mmol/L (136-145)
[2025-04-17 10:22] LABS: Anion Gap 8 (5-15); Calcium 10.2 mg/dL (8.7-10.4); Carbon Dioxide 29 mmol/L (20-31)
[2025-04-17 10:27] LABS: BUN/Creatinine Ratio 16.4 (10.0-20.0); Blood Urea Nitrogen 22 mg/dL (9-23)
[2025-04-17 10:31] LABS: Glucose 283 mg/dL (74-106)
--- NOTE | 2025-04-17 11:07 | ED.PDOC ---
History of Present Illness HPI Comments 59-year-old female brought by paramedics from a residential home because of generalized weakness. Patient has been having a week for the past few weeks progressively getting worse. She has been frequently falling last fall being this morning. No loss of consciousness. She does have a history of CVA hypoten guido atrial fibrillation diabetes chronic kidney disease. Blood sugar on arrival was 334. Blood pressure 138/85. Denies any other symptoms. Chief Complaint: General Weakness Time Seen by MD: 09:42 Primary Care Provider: [facility] Reviewed Notes: Nurses Notes, Medications, Allergies Allergies: Coded Allergies: Loperamide (Verified Allergy, Severe, 08/13/23) Nystatin (Verified Allergy, Severe, 08/13/23) Penicillins (Verified Allergy, Severe, 08/13/23) Diphenhydramine (Verified Allergy, Unknown, 09/23/24) Home Meds Active Scripts Cholecalciferol (VITAMIN D-3) 2,000 Unit Tab, 2000 UNIT PO DAILY, #30 TAB Prov:JENNYFER MCDANIEL MD 01/11/25 Hydrocodone-Acetaminophen (Hydrocodone Bitartrate/AC 5-325 mg) 1 Tab Tab, 1 TAB PO Q6HP PRN, #30 TAB Prov:JENNYFER MCDANIEL MD 01/11/25 Cyclobenzaprine HCl (Cyclobenzaprine Hydrochlo) 10 Mg Tab, 10 MG PO TID, #30 TAB Prov:JENNYFER MCDANIEL MD 01/11/25 Furosemide (Lasix) 20 Mg Tb, 1 TAB PO DAILY for 30 Days, #30 TAB 1 Refill Prov:LISA OAKES 12/30/24 Amiodarone HCl (Amiodarone HCl) 200 Mg Tab, 100 MG PO BID for 30 Days, #30 TAB please hold if heart rate remains below 50 / min Prov:LISA OAKES 12/30/24 Insulin Glargine (Lantus) 100 Unit/Ml Inj, 15 UNITS SC BID@0700,2200 for 30 Days, #90 INJ 1 Refill Prov:BETHANY JEFF DO 11/17/24 Reported Medications Insulin Glargine (Basaglar Kwikpen) 100 Unit/Ml Inj, 100 UNITS SC BID for 30 Days, #60 08/18/24 Insulin Lispro (Insulin Lispro Kwikpen) 100 Unit/Ml Inj, 10 UNITS SC DAILY for 100 Days, #15 08/18/24 Cetirizine HCl (Cetirizine Hydrochloride) 10 Mg Tab, 1 TAB PO DAILY for 90 Days, #90 08/18/24 Dapagliflozin Propanediol (Dapagliflozin Propanediol) 5 Mg Tab, 1 TAB PO DAILY for 100 Days, #100 08/18/24 Ferrous Sulfate (Ferosul) 325 Mg Tab, 1 TAB PO DAILY for anemia 06/08/24 Sitagliptin Phosphate (Januvia) 100 Mg Tab, 1 DAILY for 90 Days, #90 06/08/24 Fenofibrate (FENOFIBRATE) 145 Mg Tab, 1 TAB PO DAILY for 90 Days, #90 06/06/24 Cyclobenzaprine HCl (Cyclobenzaprine Hydrochlo) 10 Mg Tab, 1 TAB PO BID PRN for PAIN FOR MUSCLE SPASMS for 30 Days, #15 08/13/23 Famotidine (Famotidine) 20 Mg Tab, 1 TAB PO BID PRN for ACID REFLUX AND ABDOMINAL PAIN for 90 Days, #180 08/13/23 Hydrocodone-Acetaminophen (Hydrocodone/Acetaminophen 5-325 mg) 1 Tab Tab, 2 TAB PO BID 08/13/23 Pregabalin (Pregabalin) 200 Mg Cap, 1 CAP PO TID for 30 Days, #90 08/13/23 Apixaban Base (ELIQUIS) 5 Mg Tab, 1 TAB PO BID for 45 Days, #90 08/13/23 Aspirin (Aspirin) 81 Mg Chw, 1 TAB PO DAILY for 90 Days, #90 08/13/23 Atorvastatin Calcium (ATORVASTATIN CALCIUM) 40 Mg Tab, 1 TAB PO DAILY for 90 Days, #90 08/13/23 Information Source: Patient, Emergency Med Personnel Mode of Arrival: EMS Severity: Moderate Timing: Days Duration: Since onset Past Medical History PAST MEDICAL HISTORY: AFIB, CHF, CKF, CVA, DM, HIV, HTN, Seizures Surgical History: Cholecystectomy, Hernia Repair, Thyroidectomy CUTTER FINISHER History: No Pertinent CUTTER FINISHER History Family History Family History: Reviewed,noncontributory to illness Social History Smoker: Cigarettes, Less Than 1 Pack/Day Alcohol: Denies ETOH Use Drugs: Denies Drug Use Lives In: Assisted Care Constitutional: reports: weakness; denies: chills, diaphoresis, fatigue, fever, malaise, sweats, others EENTM: denies: blurred vision, double vision, ear bleeding, ear discharge, ear drainage, ear pain, ear ringing, eye pain, eye redness, hearing loss, mouth pain, mouth swelling, nasal discharge, nose bleeding, nose congestion, nose pain, photophobia, tearing, throat pain, throat swelling, voice changes, others Respiratory: denies: cough, hemoptysis, orthopnea, SOB at rest, shortness of breath, SOB with excertion, stridor, wheezing, others Gastrointestinal: denies: abdomen distended, abdominal pain, blood streaked bowels, constipated, diarrhea, dysphagia, difficulty swallowing, hematemesis, melena, nausea, poor appetite, poor fluid intake, rectal bleeding, rectal pain, vomiting, others Genitourinary: denies: abnormal vagina bleeding, burning, dyspareunia, dysuria, flank pain, frequency, hematuria, incontinence, pain, , vagina discharge, urgency, others Neurological: denies: dizziness, fainting, headache, left sided numbness, left sided weakness, numbness, paresthesia, pre-existing deficit, right sided numbness, right sided weakness, seizure, speech problems, tingling, tremors, weakness, others Musculoskeletal: denies: back pain, gout, joint pain, joint swelling, muscle pain, muscle stiffness, neck pain, others Integumetry: denies: bruises, change in color, change in hair/nails, dryness, laceration, lesions, lumps, rash, wounds, others Allergic/Immunocompromised: denies: Difficulty Healing, Frequent Infections, Hives, Itching, others Hematologic/Lymphatic: denies: anemia, blood clots, easy bleeding, easy bruising, swollen glands, others Endocrine: denies: excessive hunger, excessive sweating, excessive thirst, excessive urination, flushing, intolerance to cold, intolerance to heat, unexplained weight gain, unexplained weight loss, others Psychiatric: denies: anxiety, bipolar disorder, depression, hopeless, panic disorder, schizophrenia, sleepless, suicidal, others Physical Exam General Appearance: Moderate Distress HEENT: Normal ENT Inspection, Pharynx Normal, TMs Normal Neck: Full Range of Motion, Non-Tender, Normal, Normal Inspection Respiratory: Chest Non-Tender, Lungs Clear, No Accessory Muscle Use, No Respiratory Distress, Normal Breath Sounds Cardiovascular: No Edema, No JVD, No Murmur, No Gallop, Normal Peripheral Pulses, Regular Rate/Rhythm Breast Exam: Deferred Gastrointestinal: No Organomegaly, Non Tender, No Pulsatile Mass, Normal Bowel Sounds, Soft Genitalia: Deferred Pelvic: Deferred Rectal: Deferred Extremities: No calf tenderness, No pedal edema Musculoskeletal : Apperance: Normal Neurologic: Alert, bacteriologist medical II-XII nml as Tested, No Motor Deficits, Normal Affect, Normal Mood, No Sensory Deficits Cerebellar Function: NOT DONE Reflexes: NOT DONE Skin: Dry, Normal Color, Warm Peripheral Pulses: 3+ Radial (R), 3+ Radial (L) Lymphatic: No Adenopathy Was a procedure done? Was a procedure done?: No Differential Dx Considerations may include: Anemia Electrolyte imbalance X-Ray, Labs, Meds, VS Vital Signs Date Time Temp Pulse Resp B/P (MAP) Pulse Ox O2 Delivery O2 Flow Rate FiO2 04/17/25 11:47 98.2 65 16 133/69 (90) 99 98.2 04/17/25 10:19 71 19 100 Room Air 04/17/25 10:19 97.9 71 19 130/75 (93) 100 97.9 04/17/25 09:29 98.0 75 22 138/85 99 98.0 04/17/25 09:29 98.0 75 22 138/85 (102) 99 98.0 Lab Test 04/17/25 09:59 04/17/25 09:43 Range/Units White Blood Count 6.3 4.4-10.8 10^3/uL Red Blood Count 5.08 4.0-5.20 10^6/uL Hemoglobin 15.4 12.2-16.2 g/dL Hematocrit 45.2 36.0-46.0 % Mean Corpuscular Volume 89.1 80.0-100.0 fL Mean Corpuscular Hemoglobin 30.3 28.0-32.0 pg Mean Corpuscular Hemoglobin Concent 34.0 32.0-36.0 g/dL Red Cell Distribution Width 16.6 H 11.8-14.3 % Platelet Count 146 140-450 10^3/uL Mean Platelet Volume 10.7 6.9-10.8 fL Neutrophils (%) (Auto) 74.8 37.0-80.0 % Lymphocytes (%) (Auto) 13.8 10.0-50.0 % Monocytes (%) (Auto) 8.0 0.0-12.0 % Eosinophils (%) (Auto) 2.1 0.0-7.0 % Basophils (%) (Auto) 1.3 0.0-2.0 % Neutrophils # (Auto) 4.7 1.6-8.6 10 ^3/uL Lymphocytes # (Auto) 0.9 0.4-5.4 10 ^3/uL Monocytes # (Auto) 0.5 0-1.3 10 ^3/uL Eosinophils # (Auto) 0.1 0-0.8 10 ^3/uL Basophils # (Auto) 0.1 0-0.2 10 ^3/uL Nucleated Red Blood Cells 0.1 % Sodium Level 142 136-145 mmol/L Potassium Level 4.5 3.5-5.1 mmol/L Chloride Level 105 98-107 mmol/L Carbon Dioxide Level 29 20-31 mmol/L Anion Gap 8 5-15 Blood Urea Nitrogen 22 9-23 mg/dL Creatinine 1.34 H 0.550-1.02 mg/dL Glomerular Filtration Rate Calc 45 >90 mL/min BUN/Creatinine Ratio 16.4 10.0-20.0 Serum Glucose 283 H 74-106 mg/dL Calcium Level 10.2 8.7-10.4 mg/dL Troponin I High Sensitivity 4 </=34 ng/L B-Type Natriuretic Peptide 27.98 0-100 pg/mL Urine Color Light-yellow Yellow Urine Clarity Clear Clear Urine pH 5.5 5.0-9.0 Urine Specific [place] 1.028 1.001-1.035 Urine Protein Negative Negative Urine Ketones Negative Negative Urine Blood Negative Negative /uL Urine Nitrite Negative Negative Urine Bilirubin Negative Negative Urine Urobilinogen Normal Negative mg/dL Urine Leukocyte Esterase Negative Negative /uL Urine RBC 1 0 - 4 /hpf Urine Microscopic WBC 3 0-5 /HPF Urine Squamous Epithelial Cells Few <5 /hpf Urine Bacteria Mod H None Seen /hpf Urine Glucose 4+ H Normal mg/dL Patient alert. Complaining of generalized weakness. Blood sugar elevated. Answering questions. History of CVA. Left-sided more weaker than the right. Establish intravenous access. Was given fluids. WBC within normal limits. Hemoglobin within normal limits. Was given insulin. Cardiac marker within normal limits. Explained to the patient. Continue monitoring. Time of 1ST Reevaluation: 11:04 Reevaluation 1ST: Unchanged Patient Education/Counseling: Diagnosis, Treatment, Prognosis Family Education/Counseling: No Family Present SEPSIS Sepsis Screen Date sepsis recognized/suspect: Apr 17, 2025 Time Sepsis recognized/suspect: 933 Recent Procedure: No On Antibiotic Therapy: No Respiratory Rate >20: Yes Heart Rate >90: No Temp<36 C (96.8 F) or >38.3 C: No SBP <90 or MAP <65 mmHG: No New Acute Mental Status Change: No Is the patient on CPAP, BIPAP,: No Physician Orders Chest Portable (04/17/25 09:43) Vital Signs Date Time Temp Pulse Resp B/P (MAP) Pulse Ox O2 Delivery O2 Flow Rate FiO2 04/17/25 11:47 98.2 65 16 133/69 (90) 99 98.2 04/17/25 10:19 71 19 100 Room Air 04/17/25 10:19 97.9 71 19 130/75 (93) 100 97.9 04/17/25 09:29 98.0 75 22 138/85 99 98.0 04/17/25 09:29 98.0 75 22 138/85 (102) 99 98.0 Laboratory Tests Test 04/17/25 09:59 White Blood Count 6.3 10^3/uL (4.4-10.8) Departure 1 Departure Time of Disposition: 11:06 Impression: Primary Impression: Uncontrolled diabetes mellitus Qualified Codes: E13.65 - Other specified diabetes mellitus with hyperglycemia Additional Impression: Chest pain of unknown etiology Disposition: ADMITTED INPATIENT Admit to: Med Surg Condition: Guarded Critical Care Note Critical Care Time?: No Stability Stability form required: No Heart Score Heart Score: Heart Score Response (Comments) Value History N/A 0 EKG N/A 0 Age N/A 0 Risk Factors N/A 0 Troponin N/A 0 Total 0 BLAIR KOCH MD Apr 17, 2025 11:07
[2025-04-17 11:34] LABS: Urine Protein, UAD Negative (Negative)
[2025-04-17] MEDS ORDERED: ACETAMINOPHEN 325 MG TAB PO PRN (15:00)
[2025-04-17] MEDS ORDERED: POLYETHYLENE GLYCOL 17 GM PWDR PO PRN (15:00)
[2025-04-17] MEDS ORDERED: DEXTROSE (50%) 50ML SYRG IV PRN (15:00)
--- NOTE | 2025-04-17 15:09 | DVHHPRES ---
History of Present Illness Resident Creating Document: JONATHONAndersNIRALINELAZOHAIB RESIDENT History of Present Illness Patient is a 59-year-old female presented to the ED with a chief complaint of generalized weakness and recurrent falls. Patient reported that she has been feeling weak, has dizziness with a sensation of room spinning which has been ongoing for last many months and she has been in and out of the hospital multiple times, she reports having dizziness when she gets up from sitting or lying down position and continues to have dizziness when she walks. Patient reports of pain in her right hip and is difficult for her to walk, uses walker. She also reported multiple falls in the last few months and last and also she fell down from the bed but did not hit her head. Patient denied any cough, phlegm, fever, chills, dysuria in the last few days Patient has been diagnosed with a HIV since 1997 and has been following up with the Infectious Disease specialist and is currently on Triumeq daily, last CD4 count in the hospital at 532. She is also reported of dysphagia and a feeling of choking when she eats food, and has a drink water to swallow the food. Medical history: atrial fibrillation, congestive heart failure, CVA, insulin- dependent type 2 diabetes mellitus, CKD, seizures, HIV, peripheral neuropathy Surgical history: Hernia repair, cholecystectomy, CTS Social history: Patient has a 25 pack year smoking history, denies alcohol or any other drug use Home medications: Amiodarone 200 mg daily, Eliquis 5 mg b.i.d., aspirin 81 mg, atorvastatin 40 mg, dapagliflozin 10 mg, insulin Lantus 50 units b.i.d., insulin lispro before meals, Lasix 40 mg daily, pregabalin 200 mg t.i.d. Review of Systems Review of Systems Patient reports of dizziness with a sensation of spinning whenever she walks Reports of right hip pain when she walks Reports diffuse abdominal pain but has constipation intermittently, denies nausea or vomiting Allergies: Coded Allergies: Loperamide (Verified Allergy, Severe, 08/13/23) Nystatin (Verified Allergy, Severe, 08/13/23) Penicillins (Verified Allergy, Severe, 08/13/23) Diphenhydramine (Verified Allergy, Unknown, 09/23/24) Medications Current Medications Medications Dose Ordered Sig/Uyen Route Start Time Stop Time Status Last Admin Dose Admin Amiodarone HCl 200 mg DAILY PO 04/18/25 10:00 UNV Enoxaparin Sodium 70 mg Q12HR SC 04/17/25 22:00 UNV Atorvastatin Calcium 40 mg HS PO 04/17/25 22:00 UNV Insulin Glargine 40 units BID@1000,2200 SC 04/17/25 22:00 UNV Diagnostic Test (Pha) 1 strip Q6HR 04/17/25 18:00 UNV Insulin Human Regular Q6HR SC 04/17/25 18:00 UNV Dextrose 50 ml UD PRN IV 04/17/25 15:00 UNV Polyethylene Glycol 17 gm DAILYPRN PRN PO 04/17/25 15:00 UNV Sennosides 8.6 mg HS PO 04/17/25 22:00 UNV Furosemide 40 mg DAILY PO 04/18/25 10:00 UNV Empaglifozin 10 mg DAILY PO 04/18/25 10:00 UNV Patient Own Medication 1 DAILY PO 04/18/25 10:00 UNV Pantoprazole Sodium 40 mg DAILY IV 04/18/25 10:00 UNV Sucralfate 1 gm BID@0600,2200 PO 04/17/25 22:00 UNV Acetaminophen 650 mg Q6HP PRN PO 04/17/25 15:00 UNV Ibuprofen 400 mg Q8HP PRN PO 04/17/25 15:00 UNV Exam Vital Signs Vital Signs Date Time Temp Pulse Resp B/P (MAP) Pulse Ox O2 Delivery O2 Flow Rate FiO2 04/17/25 11:47 98.2 65 16 133/69 (90) 99 98.2 04/17/25 10:19 Room Air Exam Skin - Patients skin is warm and dry. HEENT - normocephalic, atraumatic, moist mucous membranes, no scleral icterus, no conjunctival pallor Neck - full ROM, no LAD, no JVD Pulmonary - B/L decreased breath sounds without any wheezing or rales cardiovascular - regular S1,S2 heard, no added sounds, no murmurs heard. GI - soft, obese abdomen with a minimal tenderness to palpation diffusely. Bowel sounds normoactive Neurological - Patient is A/O X 4 . Bilateral upper extremity strength 5/5, bilateral lower extremity strength 5/5, no facial droop, normal speech, no tremor, no sensory deficiets. Labs/Xrays Labs Test 04/17/25 09:59 04/17/25 09:43 Range/Units White Blood Count 6.3 4.4-10.8 10^3/uL Red Blood Count 5.08 4.0-5.20 10^6/uL Hemoglobin 15.4 12.2-16.2 g/dL Hematocrit 45.2 36.0-46.0 % Mean Corpuscular Volume 89.1 80.0-100.0 fL Mean Corpuscular Hemoglobin 30.3 28.0-32.0 pg Mean Corpuscular Hemoglobin Concent 34.0 32.0-36.0 g/dL Red Cell Distribution Width 16.6 H 11.8-14.3 % Platelet Count 146 140-450 10^3/uL Mean Platelet Volume 10.7 6.9-10.8 fL Neutrophils (%) (Auto) 74.8 37.0-80.0 % Lymphocytes (%) (Auto) 13.8 10.0-50.0 % Monocytes (%) (Auto) 8.0 0.0-12.0 % Eosinophils (%) (Auto) 2.1 0.0-7.0 % Basophils (%) (Auto) 1.3 0.0-2.0 % Neutrophils # (Auto) 4.7 1.6-8.6 10 ^3/uL Lymphocytes # (Auto) 0.9 0.4-5.4 10 ^3/uL Monocytes # (Auto) 0.5 0-1.3 10 ^3/uL Eosinophils # (Auto) 0.1 0-0.8 10 ^3/uL Basophils # (Auto) 0.1 0-0.2 10 ^3/uL Nucleated Red Blood Cells 0.1 % Sodium Level 142 136-145 mmol/L Potassium Level 4.5 3.5-5.1 mmol/L Chloride Level 105 98-107 mmol/L Carbon Dioxide Level 29 20-31 mmol/L Anion Gap 8 5-15 Blood Urea Nitrogen 22 9-23 mg/dL Creatinine 1.34 H 0.550-1.02 mg/dL Glomerular Filtration Rate Calc 45 >90 mL/min BUN/Creatinine Ratio 16.4 10.0-20.0 Serum Glucose 283 H 74-106 mg/dL Calcium Level 10.2 8.7-10.4 mg/dL Troponin I High Sensitivity 4 </=34 ng/L B-Type Natriuretic Peptide 27.98 0-100 pg/mL Urine Color Light-yellow Yellow Urine Clarity Clear Clear Urine pH 5.5 5.0-9.0 Urine Specific [place] 1.028 1.001-1.035 Urine Protein Negative Negative Urine Ketones Negative Negative Urine Blood Negative Negative /uL Urine Nitrite Negative Negative Urine Bilirubin Negative Negative Urine Urobilinogen Normal Negative mg/dL Urine Leukocyte Esterase Negative Negative /uL Urine RBC 1 0 - 4 /hpf Urine Microscopic WBC 3 0-5 /HPF Urine Squamous Epithelial Cells Few <5 /hpf Urine Bacteria Mod H None Seen /hpf Urine Glucose 4+ H Normal mg/dL SEPSIS Sepsis Screen Date sepsis recognized/suspect: Apr 17, 2025 Time Sepsis recognized/suspect: 933 Recent Procedure: No On Antibiotic Therapy: No Respiratory Rate >20: Yes Heart Rate >90: No Temp<36 C (96.8 F) or >38.3 C: No SBP <90 or MAP <65 mmHG: No New Acute Mental Status Change: No Is the patient on CPAP, BIPAP,: No Physician Orders Chest Portable (04/17/25 09:43) Admit (04/17/25 14:52) Oxygen By Nasal Cannula (04/17/25 14:52) Stat Ekg For Chest Pain (04/17/25 14:52) Notify Md Of Changes From Base (04/17/25 14:52) Emergency Dysrhythmia Protocol (04/17/25 14:52) Amiodarone Tablet (Cordarone Tablet) (04/18/25 10:00) Enoxaparin Sodium (Lovenox) (04/17/25 22:00) Atorvastatin (Lipitor) (04/17/25 22:00) Thyroid Stimulating Hormone (04/17/25 14:52) Insulin Lantus (Glargine) (Lantus) (04/17/25 22:00) Glucose Blood (Accu-Chek Comfort Curve T (04/17/25 18:00) Insulin R (Human) (Insulin R) (04/17/25 18:00) Dextrose 50% Syringe (04/17/25 15:00) Cd4/Cd8 Ratio Profile (04/17/25 14:52) Polyethylene Glycol 17g Powder (Miralax (04/17/25 15:00) Senna Pod Tablet (Senokot Tablet) (04/17/25 22:00) Hepatic Panel (04/17/25 14:52) Furosemide Tablet (Lasix Tablet) (04/18/25 10:00) Empagliflozin (Jardiance) (04/18/25 10:00) Patients Own Medication (04/18/25 10:00) Pantoprazole (Protonix) (04/17/25 15:00) Pantoprazole (Protonix) (04/18/25 10:00) Sucralfate Susp (Carafate Susp) (04/17/25 22:00) Sucralfate Susp (Carafate Susp) (04/17/25 15:00) Acetaminophen Tablet (Tylenol Tablet) (04/17/25 15:00) Ibuprofen Tablet (Motrin Tablet) (04/17/25 15:00) Vital Signs Date Time Temp Pulse Resp B/P (MAP) Pulse Ox O2 Delivery O2 Flow Rate FiO2 04/17/25 11:47 98.2 65 16 133/69 (90) 99 98.2 04/17/25 10:19 71 19 100 Room Air 04/17/25 10:19 97.9 71 19 130/75 (93) 100 97.9 04/17/25 09:29 98.0 75 22 138/85 99 98.0 04/17/25 09:29 98.0 75 22 138/85 (102) 99 98.0 Laboratory Tests Test 04/17/25 09:59 White Blood Count 6.3 10^3/uL (4.4-10.8) Assessment/Plan Assessment/Plan Generalized weakness Right hip pain likely osteoarthritis Dizziness, ?Vertigo ?Orthostatic hypotension Dysphagia ?Esophageal candidiasis ?GERD Diffuse abdominal pain ?Constipation Paroxysmal atrial fibrillation Heart failure with preserved ejection fraction, no exacerbation Hypertensive heart disease with heart failure Uncontrolled Insulin-dependent type 2 diabetes mellitus HIV h/o seizures currently not on any medication CKD likely due to diabetic nephropathy Diabetic peripheral neuropathy Plan - vitamin B12, vitamin-D, folate pending - hip x-ray from December 2024 showed [id number] degenerative changes of bilateral hips - no neurological deficits on physical exam, head CT pending, orthostatic vitals pending - Protonix and Carafate for GERD, if dysphagia does not improve may try nystatin swish and swallow for possible candidal esophagitis since the patient has HIV - MiraLax and senna for constipation - continued on amiodarone, at home patient taking Eliquis switch to enoxaparin therapeutic dose while inpatient - for HFpEF, echo from November 2024 showed LVEF 50 50 60% with a mild LVH and diastolic dysfunction. since the patient is having dizziness, check for orthostatic vitals, reduced Lasix to 20 daily, continued on Jardiance 10 mg daily, lisinopril 2.5 mg daily - insulin Lantus 40 b.i.d., moderate insulin sliding scale - repeat CD4, continued on Triumeq - pregabalin 100 t.i.d. Goals of care discussed with the patient for over 90 minutes. DNR Time spent: 37 minutes Plan discussed with Dr. Clay Plan discussed with: Patient, Other (RN) My Orders Orders - ROGERIO BRYANT RESIDENT Procedure Category Date Status Time Admit ADMIT 04/17/25 Transmitted 14:52 Oxygen By Nasal RT 04/17/25 Transmitted Cannula 14:52 Stat Ekg For Chest SANJU 04/17/25 In Process Pain 14:52 Notify Md Of Changes SANJU 04/17/25 In Process From Base 14:52 Emergency Dysrhythmia SANJU 04/17/25 In Process Protocol 14:52 Amiodarone Tablet PHA 04/18/25 Logged (Cordarone Tablet) 10:00 Enoxaparin Sodium PHA 04/17/25 Logged (Lovenox) 22:00 Atorvastatin (Lipitor) PHA 04/17/25 Logged 22:00 Thyroid Stimulating LAB 04/17/25 Logged Hormone 14:52 Insulin Lantus PHA 04/17/25 Logged (Glargine) (Lantus) 22:00 Glucose Blood PHA 04/17/25 Logged (Accu-Chek Comfort 18:00 Insulin R (Human) PHA 04/17/25 Logged (Insulin R) 18:00 Dextrose 50% Syringe PHA 04/17/25 Logged 15:00 Cd4/Cd8 Ratio Profile LAB 04/17/25 Logged 14:52 Polyethylene Glycol PHA 04/17/25 Logged 17g Powder (Miralax 15:00 Senna Pod Tablet PHA 04/17/25 Logged (Senokot Tablet) 22:00 Hepatic Panel LAB 04/17/25 In Process 14:52 Furosemide Tablet PHA 04/18/25 Logged (Lasix Tablet) 10:00 Empagliflozin PHA 04/18/25 Logged (Jardiance) 10:00 Patients Own PHA 04/18/25 Logged Medication 10:00 Pantoprazole PHA 04/17/25 Logged (Protonix) 15:00 Pantoprazole PHA 04/18/25 Logged (Protonix) 10:00 Sucralfate Susp PHA 04/17/25 Logged (Carafate Susp) 22:00 Sucralfate Susp PHA 04/17/25 Logged (Carafate Susp) 15:00 Acetaminophen Tablet PHA 04/17/25 Logged (Tylenol Tablet) 15:00 Ibuprofen Tablet PHA 04/17/25 Logged (Motrin Tablet) 15:00 Date of Service: Apr 17, 2025 Billing Provider: DEANDRE CLAY MD Common Visit Codes: [id number] INP/OBS CARE (HIGH) Secondary Visit Codes: [id number] CARE PLAN 30 MINUTES ROGERIO BRYANT RESIDENT Apr 17, 2025 15:09
[2025-04-17 15:36] LABS: Albumin 4.3 g/dL (3.2-4.8); Alkaline Phosphatase 88 U/L (46-116); Total Protein 7.4 g/dL (5.7-8.2)
[2025-04-17 15:39] LABS: Alanine Aminotransferase 43 U/L (7-40); Bilirubin, Direct < 0.1 mg/dL (<0.3); Bilirubin, Total 0.2 mg/dL (0.2-1.0)
[2025-04-17] MEDS: PANTOPRAZOLE 40 MG/10 ML VIAL INJ IV ONE (16:09)
[2025-04-17] MEDS: SUCRALFATE 1 GM/10 ML ORAL SUSP PO ONE (16:10)
[2025-04-17 16:59] VITALS: BP 150/75; PULSE 61
[2025-04-17] MEDS ORDERED: POTA-36 PO (17:44)
[2025-04-17] MEDS ORDERED: ABAC1TAB3 PO (17:44)
[2025-04-17] MEDS ORDERED: FURO1TAB31 PO (17:44)
[2025-04-17] MEDS ORDERED: LISI2.5T47 PO (17:44)
[2025-04-17] MEDS ORDERED: DAPA1TAB4 PO (17:44)
[2025-04-17] MEDS ORDERED: ACET-1881 PO (17:44)
[2025-04-17] MEDS ORDERED: DULO60CA41 PO (17:44)
[2025-04-17] MEDS: InsuLIN REG 1unit/0.01ml Soln (100units/ml) SC SCH (18:00)
[2025-04-17] MEDS: ACCU-CHEK COMFORT CURVE STRIP VI SCH (19:05)
[2025-04-17] MEDS: LISINOPRIL 5 MG TAB PO ONE (19:10)
[2025-04-17 20:00] VITALS: PULSE 62; RESP 17
[2025-04-17 21:00] VITALS: BP 156/67; PULSE 62; RESP 17; TEMP 97.9; O2SAT 97
[2025-04-17] MEDS: SUCRALFATE 1 GM/10 ML ORAL SUSP PO SCH (21:45)
[2025-04-17] MEDS: ENOXAPARIN SOD 80 MG/0.8ML SYRINGE SC SCH (21:45)
[2025-04-17] MEDS: ATORVASTATIN 20 MG TAB PO SCH (21:45)
[2025-04-17] MEDS: SENNA 8.6 MG TAB PO SCH (21:46)
--- NOTE | 2025-04-17 21:48 | DVH ---
EXAM: CT HEAD WITHOUT CONTRAST INDICATION: recurrent falls, dizziness, diplopia, dyphagia TECHNIQUE: CT of the head without intravenous contrast. Radiation Dose Information: CT Dose: CTDI volume is 57.19 mGy. Dose-length product is 1029.41 mGy*cm The dose indicators for CT are the volume Computed Tomography (CT) Dose Index (CTDIvol) and the Dose Length Product (DLP), and are measured in units of mGy and mGy-cm, respectively. These indicators are not patient dose, but values generated from the CT scanner acquisition factors. The report includes radiation exposure data for exposures received during this examination. COMPARISON: CT HEAD WITHOUT CONTRAST on DOS: 01/24/25, MRI BRAIN HEAD WO CONTRAST on DOS: 01/05/25, CT HEAD WITHOUT CONTRAST on DOS: 01/02/25, CT HEAD WITHOUT CONTRAST on DOS: 12/28/24, CT HEAD WITHOUT CONTRAST on DOS: 12/21/24 FINDINGS: There is no evidence of acute intracranial hemorrhage, extra-axial collection, mass effect, midline shift, herniation or hydrocephalus. The ventricles, sulci and cisterns are age appropriate. The jackson-white differentiation is intact. Patchy periventricular and subcortical white matter hypoattenuation is nonspecific but may be related to small vessel ischemic disease. The visualized paranasal sinuses and mastoid air cells are clear. The surrounding soft tissues and osseous structures are unremarkable. IMPRESSION: No acute intracranial abnormality.
[2025-04-17] MEDS: PREGABALIN CAPSULE 75 MG CAP PO SCH (22:00)
[2025-04-17] MEDS ORDERED: SENNA 8.6 MG TAB PO SCH (22:00)
[2025-04-17] MEDS: INSULIN LANTUS (GLARGINE) 1 /0.01ml (100units/ml) SC SCH (22:00)
[2025-04-18] VITALS (8 sets, daily range): BP systolic 109–143; BP diastolic 47–78; PULSE 58–97; RESP 16–18; TEMP 97.1–97.9; O2SAT 94–98
[2025-04-18] MEDS: IBUPROFEN 400 MG TAB PO PRN (06:54)
[2025-04-18 06:56] LABS: Anion Gap 6 (5-15); Carbon Dioxide 29 mmol/L (20-31); Potassium 4.0 mmol/L (3.5-5.1); Sodium 144 mmol/L (136-145)
[2025-04-18 06:57] LABS: Calcium 9.8 mg/dL (8.7-10.4); Chloride 109 mmol/L (98-107)
[2025-04-18 07:02] LABS: BUN/Creatinine Ratio 16.2 (10.0-20.0); Blood Urea Nitrogen 19 mg/dL (9-23)
[2025-04-18 07:10] LABS: Glucose 152 mg/dL (74-106)
[2025-04-18] MEDS: FUROSEMIDE 20 MG TAB PO SCH (09:28)
[2025-04-18] MEDS: AMIODARONE HCL 200 MG TAB PO SCH (09:29)
[2025-04-18] MEDS: LISINOPRIL 5 MG TAB PO SCH (09:29)
[2025-04-18] MEDS: EMPAGLIFLOZIN 10 MG TAB PO SCH (09:29)
[2025-04-18] MEDS: PANTOPRAZOLE 40 MG/10 ML VIAL INJ IV SCH (09:30)
[2025-04-18] MEDS ORDERED: FUROSEMIDE 20 MG TAB PO SCH (10:00)
[2025-04-18] MEDS: PREGABALIN 25 MG CAP PO ONE (12:55)
--- NOTE | 2025-04-18 13:26 | DVHPN2 ---
Subjective The patient seen and examined at bedside.Complains of pain all over the body. Lyrica did help a little. Reviewed: Care Plan, H&P, Labs, Medications, Previous Orders, Radiology Changes from previous H/P or p: No Changes Objective Vitals Vital Signs Date Time Temp Pulse Resp B/P (MAP) Pulse Ox O2 Delivery O2 Flow Rate FiO2 04/18/25 13:00 97.9 58 17 121/55 (77) 97 97.9 04/17/25 20:00 Room Air* 0 21 Intake/Output Intake and Output 04/18/25 07:00 Intake Total 250 ml Output Total 800 ml Balance -550 ml Intake Oral 250 ml Output Urine Total 800 ml General Appearance: Alert, Oriented X3, mild distress HEENT: Atraumatic, PERRLA, EOMI, Mucous membr. moist/pink Neck: Supple Lungs: Clear to auscultation, Normal air movement Cardiovascular: Regular rate, Normal S1, Normal S2, No murmurs, Gallops, Rubs Abdomen: Normal bowel sounds, Soft, No tenderness Neuro: Cranial nerves 3-12 NL Psych/Mental Status: Mental status NL Medications Current Medications Medications Dose Ordered Sig/Uyen Route Start Time Stop Time Status Last Admin Dose Admin Amiodarone HCl 200 mg DAILY PO 04/18/25 10:00 04/18/25 09:29 200 MG Enoxaparin Sodium 70 mg Q12HR SC 04/17/25 22:00 04/18/25 09:27 70 MG Atorvastatin Calcium 40 mg HS PO 04/17/25 22:00 04/17/25 21:45 40 MG Insulin Glargine 40 units BID@1000,2200 SC 04/17/25 22:00 04/18/25 09:47 40 UNITS Diagnostic Test (Pha) 1 strip Q6HR 04/17/25 18:00 04/18/25 12:00 1 STRIP Insulin Human Regular Q6HR SC 04/17/25 18:00 04/18/25 12:56 2 UNITS Dextrose 50 ml UD PRN IV 04/17/25 15:00 Polyethylene Glycol 17 gm DAILYPRN PRN PO 04/17/25 15:00 Empaglifozin 10 mg DAILY PO 04/18/25 10:00 04/18/25 09:29 10 MG Patient Own Medication 1 DAILY PO 04/18/25 10:00 04/18/25 09:30 1 Pantoprazole Sodium 40 mg DAILY IV 04/18/25 10:00 04/18/25 09:30 40 MG Sucralfate 1 gm BID@0600,2200 PO 04/17/25 22:00 04/18/25 06:30 1 GM Acetaminophen 650 mg Q6HP PRN PO 04/17/25 15:00 Ibuprofen 400 mg Q8HP PRN PO 04/17/25 15:00 04/18/25 06:54 400 MG Lisinopril 2.5 mg DAILY PO 04/18/25 10:00 04/18/25 09:29 2.5 MG Sennosides 17.2 mg HS PO 04/17/25 22:00 04/17/25 21:46 17.2 MG Furosemide 20 mg DAILY PO 04/18/25 10:00 04/18/25 09:28 20 MG Pregabalin 100 mg BID PO 04/18/25 22:00 Laboratory Results Laboratory Tests 04/18/25 06:25 Chemistry Test 04/18/25 06:25 Calcium Level 9.8 mg/dL (8.7-10.4) Urinalysis Test 04/17/25 09:43 Urine Color Light-yellow (Yellow) Urine Clarity Clear (Clear) Urine pH 5.5 (5.0-9.0) Urine Specific [place] 1.028 (1.001-1.035) Urine Protein Negative (Negative) Urine Ketones Negative (Negative) Urine Blood Negative /uL (Negative) Urine Nitrite Negative (Negative) Urine Bilirubin Negative (Negative) Urine Urobilinogen Normal mg/dL (Negative) Urine Leukocyte Esterase Negative /uL (Negative) Urine RBC 1 /hpf (0 - 4) Urine Microscopic WBC 3 /HPF (0-5) Urine Squamous Epithelial Cells Few /hpf (<5) Urine Bacteria Mod /hpf (None Seen) H Urine Glucose 4+ mg/dL (Normal) H Labs and/or images reviewed: Labs reviewed by me Assessment/Plan Assessment/Plan Generalized weakness Right hip pain likely osteoarthritis Dizziness, ?Vertigo ?Orthostatic hypotension Dysphagia ?Esophageal candidiasis ?GERD Diffuse abdominal pain ?Constipation Paroxysmal atrial fibrillation Heart failure with preserved ejection fraction, no exacerbation Hypertensive heart disease with heart failure Uncontrolled Insulin-dependent type 2 diabetes mellitus HIV h/o seizures currently not on any medication CKD likely due to diabetic nephropathy Diabetic peripheral neuropathy Plan - vitamin B12, vitamin-D, folate pending - hip x-ray from December 2024 showed [id number] degenerative changes of bilateral hips - no neurological deficits on physical exam, head CT pending, orthostatic vitals pending - Protonix and Carafate for GERD, if dysphagia does not improve may try nystatin swish and swallow for possible candidal esophagitis since the patient has HIV - MiraLax and senna for constipation - continued on amiodarone, at home patient taking Eliquis switch to enoxaparin therapeutic dose while inpatient - for HFpEF, echo from November 2024 showed LVEF 50 50 60% with a mild LVH and diastolic dysfunction. since the patient is having dizziness, check for orthostatic vitals, reduced Lasix to 20 daily, continued on Jardiance 10 mg daily, lisinopril 2.5 mg daily - insulin Lantus 40 b.i.d., moderate insulin sliding scale - repeat CD4, continued on Triumeq - pregabalin 100 t.i.d. -PT consult for out of bed and ambulate. Goals of care discussed with the patient for over 90 minutes. DNR Plan discussed with: Patient Date of Service: Apr 18, 2025 Billing Provider: DEANDRE KINGSLEY MD Common Visit Codes: [id number] INP/OBS CARE(HIGH) DEANDRE KINGSLEY MD Apr 18, 2025 13:25
[2025-04-18] MEDS: PREGABALIN 25 MG CAP PO SCH (21:13)
[2025-04-19] VITALS (7 sets, daily range): BP systolic 119–141; BP diastolic 65–83; PULSE 53–92; RESP 16–20; TEMP 97.4–98.4; O2SAT 92–100
[2025-04-19 06:06] LABS: Hematocrit 48.6 % (34.0-46.6); Hemoglobin 15.8 g/dL (11.1-15.9); MCH 30.8 pg (26.6-33.0); MCHC 32.5 g/dL (31.5-35.7); MCV 95 fL (79-97); RBC 5.13 x10E6/uL (3.77-5.28); RDW 16.1 % (11.7-15.4); WBC 6.6 x10E3/uL (3.4-10.8)
--- NOTE | 2025-04-19 12:27 | DVHPN2 ---
Subjective The patient seen and examined at bedside. Still complains of pain all over the body. Lyrica did help a little. Remained very weak. Reviewed: Care Plan, H&P, Labs, Medications, Previous Orders, Radiology Changes from previous H/P or p: No Changes Objective Vitals Vital Signs Date Time Temp Pulse Resp B/P (MAP) Pulse Ox O2 Delivery O2 Flow Rate FiO2 04/19/25 12:25 97.9 66 18 119/74 (89) 95 97.9 04/18/25 20:00 Room Air* 0 21 Intake/Output Intake and Output 04/19/25 07:00 Intake Total 350 ml Balance 350 ml Intake Oral 350 ml # Voids 5 # Bowel Movements 2 General Appearance: Alert, Oriented X3, mild distress HEENT: Atraumatic, PERRLA, EOMI, Mucous membr. moist/pink Neck: Supple Lungs: Clear to auscultation, Normal air movement Cardiovascular: Regular rate, Normal S1, Normal S2, No murmurs, Gallops, Rubs Abdomen: Normal bowel sounds, Soft, No tenderness Neuro: Cranial nerves 3-12 NL Psych/Mental Status: Mental status NL Medications Current Medications Medications Dose Ordered Sig/Uyen Route Start Time Stop Time Status Last Admin Dose Admin Amiodarone HCl 200 mg DAILY PO 04/18/25 10:00 04/19/25 12:03 200 MG Enoxaparin Sodium 70 mg Q12HR SC 04/17/25 22:00 04/19/25 12:03 70 MG Atorvastatin Calcium 40 mg HS PO 04/17/25 22:00 04/18/25 21:13 40 MG Insulin Glargine 40 units BID@1000,2200 SC 04/17/25 22:00 04/19/25 10:00 40 UNITS Diagnostic Test (Pha) 1 strip Q6HR 04/17/25 18:00 04/19/25 12:08 1 STRIP Insulin Human Regular Q6HR SC 04/17/25 18:00 04/19/25 12:22 6 UNITS Dextrose 50 ml UD PRN IV 04/17/25 15:00 Polyethylene Glycol 17 gm DAILYPRN PRN PO 04/17/25 15:00 Empaglifozin 10 mg DAILY PO 04/18/25 10:00 04/19/25 12:02 10 MG Patient Own Medication 1 DAILY PO 04/18/25 10:00 04/19/25 10:00 1 Pantoprazole Sodium 40 mg DAILY IV 04/18/25 10:00 04/19/25 12:03 40 MG Sucralfate 1 gm BID@0600,2200 PO 04/17/25 22:00 04/19/25 05:40 1 GM Acetaminophen 650 mg Q6HP PRN PO 04/17/25 15:00 Ibuprofen 400 mg Q8HP PRN PO 04/17/25 15:00 04/18/25 21:12 400 MG Lisinopril 2.5 mg DAILY PO 04/18/25 10:00 04/18/25 09:29 2.5 MG Sennosides 17.2 mg HS PO 04/17/25 22:00 04/17/25 21:46 17.2 MG Furosemide 20 mg DAILY PO 04/18/25 10:00 04/19/25 10:00 20 MG Pregabalin 100 mg BID PO 04/18/25 22:00 04/19/25 12:02 100 MG Laboratory Results Laboratory Tests 04/17/25 15:48 04/18/25 06:25 Urinalysis Test 04/17/25 09:43 Urine Color Light-yellow (Yellow) Urine Clarity Clear (Clear) Urine pH 5.5 (5.0-9.0) Urine Specific [place] 1.028 (1.001-1.035) Urine Protein Negative (Negative) Urine Ketones Negative (Negative) Urine Blood Negative /uL (Negative) Urine Nitrite Negative (Negative) Urine Bilirubin Negative (Negative) Urine Urobilinogen Normal mg/dL (Negative) Urine Leukocyte Esterase Negative /uL (Negative) Urine RBC 1 /hpf (0 - 4) Urine Microscopic WBC 3 /HPF (0-5) Urine Squamous Epithelial Cells Few /hpf (<5) Urine Bacteria Mod /hpf (None Seen) H Urine Glucose 4+ mg/dL (Normal) H Labs and/or images reviewed: Labs reviewed by me Assessment/Plan Assessment/Plan Generalized weakness Right hip pain likely osteoarthritis Dizziness, ?Vertigo ?Orthostatic hypotension Dysphagia ?Esophageal candidiasis ?GERD Diffuse abdominal pain ?Constipation Paroxysmal atrial fibrillation Heart failure with preserved ejection fraction, no exacerbation Hypertensive heart disease with heart failure Uncontrolled Insulin-dependent type 2 diabetes mellitus HIV h/o seizures currently not on any medication CKD likely due to diabetic nephropathy Diabetic peripheral neuropathy Plan - vitamin B12, vitamin-D, folate pending - hip x-ray from December 2024 showed [id number] degenerative changes of bilateral hips - no neurological deficits on physical exam, head CT pending, orthostatic vitals pending - Protonix and Carafate for GERD, if dysphagia does not improve may try nystatin swish and swallow for possible candidal esophagitis since the patient has HIV - MiraLax and senna for constipation - continued on amiodarone, at home patient taking Eliquis switch to enoxaparin therapeutic dose while inpatient - for HFpEF, echo from November 2024 showed LVEF 50 50 60% with a mild LVH and diastolic dysfunction. since the patient is having dizziness, check for orthostatic vitals, reduced Lasix to 20 daily, continued on Jardiance 10 mg daily, lisinopril 2.5 mg daily - insulin Lantus 40 b.i.d., moderate insulin sliding scale - repeat CD4, continued on Triumeq - pregabalin 100 t.i.d. -PT consult for out of bed and ambulate. Per physical therapist, patient need rehab/SNF for physical therapy. DW patient, she agree to go to SNF. Goals of care discussed with the patient for over 90 minutes. DNR Plan discussed with: Patient My Orders Orders - DEANDRE KINGSLEY MD Procedure Category Date Status Time Pt Request For Service PT 04/18/25 Logged 21:10 Mrsa Screen CRISTIAN 04/19/25 In Process 05:48 Date of Service: Apr 19, 2025 Billing Provider: DEANDRE KINGSLEY MD Common Visit Codes: [id number] INP/OBS CARE(HIGH) DEANDRE KINGSLEY MD Apr 19, 2025 12:27
[2025-04-20] VITALS (7 sets, daily range): BP systolic 101–147; BP diastolic 67–84; PULSE 60–81; RESP 16–19; TEMP 97.2–98.5; O2SAT 94–98
[2025-04-20 08:07] LABS: CD4/CD8 Ratio 2.63 (0.92-3.72)
--- NOTE | 2025-04-20 22:47 | DVHPN2 ---
Subjective The patient seen and examined at bedside. Still complains of pain all over the body. Lyrica did help a little. Remained very weak. Reviewed: Care Plan, H&P, Labs, Medications, Previous Orders, Radiology Changes from previous H/P or p: No Changes Objective Vitals Vital Signs Date Time Temp Pulse Resp B/P (MAP) Pulse Ox O2 Delivery O2 Flow Rate FiO2 04/20/25 21:00 98.5 69 18 122/76 (91) 98 98.5 04/20/25 20:00 Room Air* 0 21 Intake/Output Intake and Output 04/20/25 07:00 Intake Total 2060 ml Balance 2060 ml Intake Oral 2060 ml # Voids 6 # Bowel Movements 2 General Appearance: Alert, Oriented X3, mild distress HEENT: Atraumatic, PERRLA, EOMI, Mucous membr. moist/pink Neck: Supple Lungs: Clear to auscultation, Normal air movement Cardiovascular: Regular rate, Normal S1, Normal S2, No murmurs, Gallops, Rubs Abdomen: Normal bowel sounds, Soft, No tenderness Neuro: Cranial nerves 3-12 NL Psych/Mental Status: Mental status NL Medications Current Medications Medications Dose Ordered Sig/Uyen Route Start Time Stop Time Status Last Admin Dose Admin Amiodarone HCl 200 mg DAILY PO 04/18/25 10:00 04/20/25 10:08 200 MG Enoxaparin Sodium 70 mg Q12HR SC 04/17/25 22:00 04/20/25 21:54 70 MG Atorvastatin Calcium 40 mg HS PO 04/17/25 22:00 04/20/25 21:55 40 MG Insulin Glargine 40 units BID@1000,2200 SC 04/17/25 22:00 04/20/25 10:10 40 UNITS Diagnostic Test (Pha) 1 strip Q6HR 04/17/25 18:00 04/20/25 17:39 1 STRIP Insulin Human Regular Q6HR SC 04/17/25 18:00 04/20/25 11:35 9 UNITS Dextrose 50 ml UD PRN IV 04/17/25 15:00 Polyethylene Glycol 17 gm DAILYPRN PRN PO 04/17/25 15:00 Empaglifozin 10 mg DAILY PO 04/18/25 10:00 04/20/25 10:08 10 MG Patient Own Medication 1 DAILY PO 04/18/25 10:00 04/20/25 10:00 1 Pantoprazole Sodium 40 mg DAILY IV 04/18/25 10:00 04/20/25 10:07 40 MG Sucralfate 1 gm BID@0600,2200 PO 04/17/25 22:00 04/20/25 21:54 1 GM Acetaminophen 650 mg Q6HP PRN PO 04/17/25 15:00 Ibuprofen 400 mg Q8HP PRN PO 04/17/25 15:00 04/20/25 21:55 400 MG Lisinopril 2.5 mg DAILY PO 04/18/25 10:00 04/20/25 10:09 2.5 MG Sennosides 17.2 mg HS PO 04/17/25 22:00 04/17/25 21:46 17.2 MG Furosemide 20 mg DAILY PO 04/18/25 10:00 04/20/25 10:08 20 MG Pregabalin 100 mg BID PO 04/18/25 22:00 04/20/25 21:54 100 MG Laboratory Results Laboratory Tests 04/17/25 15:48 04/18/25 06:25 Urinalysis Test 04/17/25 09:43 Urine Color Light-yellow (Yellow) Urine Clarity Clear (Clear) Urine pH 5.5 (5.0-9.0) Urine Specific [place] 1.028 (1.001-1.035) Urine Protein Negative (Negative) Urine Ketones Negative (Negative) Urine Blood Negative /uL (Negative) Urine Nitrite Negative (Negative) Urine Bilirubin Negative (Negative) Urine Urobilinogen Normal mg/dL (Negative) Urine Leukocyte Esterase Negative /uL (Negative) Urine RBC 1 /hpf (0 - 4) Urine Microscopic WBC 3 /HPF (0-5) Urine Squamous Epithelial Cells Few /hpf (<5) Urine Bacteria Mod /hpf (None Seen) H Urine Glucose 4+ mg/dL (Normal) H Microbiology Microbiology Date/Time Source Procedure Growth Status 04/19/25 05:48 Nose MRSA Screen - Final Complete Labs and/or images reviewed: Labs reviewed by me Assessment/Plan Assessment/Plan Generalized weakness Right hip pain likely osteoarthritis Dizziness, ?Vertigo ?Orthostatic hypotension Dysphagia ?Esophageal candidiasis ?GERD Diffuse abdominal pain ?Constipation Paroxysmal atrial fibrillation Heart failure with preserved ejection fraction, no exacerbation Hypertensive heart disease with heart failure Uncontrolled Insulin-dependent type 2 diabetes mellitus HIV h/o seizures currently not on any medication CKD likely due to diabetic nephropathy Diabetic peripheral neuropathy Plan - vitamin B12, vitamin-D, folate pending - hip x-ray from December 2024 showed [id number] degenerative changes of bilateral hips - no neurological deficits on physical exam, head CT pending, orthostatic vitals pending - Protonix and Carafate for GERD, if dysphagia does not improve may try nystatin swish and swallow for possible candidal esophagitis since the patient has HIV - MiraLax and senna for constipation - continued on amiodarone, at home patient taking Eliquis switch to enoxaparin therapeutic dose while inpatient - for HFpEF, echo from November 2024 showed LVEF 50 50 60% with a mild LVH and diastolic dysfunction. since the patient is having dizziness, check for orthostatic vitals, reduced Lasix to 20 daily, continued on Jardiance 10 mg daily, lisinopril 2.5 mg daily - insulin Lantus 40 b.i.d., moderate insulin sliding scale - repeat CD4, continued on Triumeq - pregabalin 100 t.i.d. -PT consult for out of bed and ambulate. Per physical therapist, patient need rehab/SNF for physical therapy. DW patient, she agree to go to SNF. DC to SNF when bed available. DNR Plan discussed with: Patient My Orders Orders - DEANDRE KINGSLEY MD Procedure Category Date Status Time Code Status CODE 04/20/25 Transmitted 07:37 Discharge DISCHARGE 04/20/25 Transmitted 12:14 Date of Service: Apr 20, 2025 Billing Provider: DEANDRE KINGSLEY MD Common Visit Codes: [id number] INP/OBS CARE(HIGH) DEANDRE KINGSLEY MD Apr 20, 2025 22:47
[2025-04-21 01:00] VITALS: BP 120/68; PULSE 55; RESP 18; TEMP 98.7; O2SAT 97
[2025-04-21 05:00] VITALS: BP 140/64; PULSE 58; RESP 18; TEMP 97.5; O2SAT 96
[2025-04-21 06:38] LABS: Hematocrit 45.6 % (36.0-46.0); Hemoglobin 15.2 g/dL (12.2-16.2); Mean Corpuscular Hemoglobin 29.8 pg (28.0-32.0); Mean Corpuscular Volume 89.6 fL (80.0-100.0); Nucleated Red Blood Cells % 0.1 %
[2025-04-21 06:58] LABS: Anion Gap 6 (5-15); Carbon Dioxide 30 mmol/L (20-31); Chloride 106 mmol/L (98-107); Potassium 3.7 mmol/L (3.5-5.1); Sodium 142 mmol/L (136-145)
[2025-04-21 07:00] LABS: Calcium 9.9 mg/dL (8.7-10.4)
[2025-04-21 07:04] LABS: BUN/Creatinine Ratio 18.7 (10.0-20.0)
[2025-04-21 07:17] LABS: Blood Urea Nitrogen 25 mg/dL (9-23); Glucose 126 mg/dL (74-106)
[2025-04-21 09:00] VITALS: BP 105/61; PULSE 60; RESP 16; TEMP 98.6; O2SAT 95
--- NOTE | 2025-04-21 10:19 | DVHPN2 ---
Assessment/Plan Assessment/Plan Progress note 59 F with HIV on triumeq (CD4 532), pafib on Eliquis, HFpEF 60%, hx of CVA, IDDM, CKD, ex smoker admitted for weakness and recurrent falls. 12 physical exam labs ekg imaging reviewed assessment and plan generalized weakness R hip pain 2/2 OA dizziness likely orthostatic hypotension HIV dysphagia likely GERD slow transit constipation pAfib on Eliquis HFpEF no exacerbation HTN IDDM uncontrolled hx of seizure? CKD stage 3b diabetic peripheral neuropathy frailty PT eval, rec SNF SS consult for placement c/w amio c/w asa, lipitor, dapaglifozin and lisinopril c/w Carafate and protonix c/w Lasix 20 lantus 40 BID CD4 719 c/w triumeq lyrica bowel reg diet DVT ppx Eliquis DNR Plan discussed with: Patient Date of Service: Apr 21, 2025 Billing Provider: LUCRECIA HENSON MD Common Visit Codes: [id number] INP/OBS CARE(MOD) LUCRECIA HENSON MD Apr 21, 2025 10:19
[2025-04-21 13:00] VITALS: BP 119/78; PULSE 74; RESP 18; TEMP 97.8; O2SAT 96
--- NOTE | 2025-04-21 16:30 | DVHDS2 ---
Discharge Summary Date of Admission Apr 17, 2025 at 14:52 Date of Discharge: Apr 20, 2025 Labs/Diagnostic Data: Laboratory Results Test 04/21/25 12:40 04/21/25 05:36 04/17/25 15:48 04/17/25 09:59 POC Glucose 226 mg/dl (70-106) White Blood Count 5.7 10^3/uL (4.4-10.8) Red Blood Count 5.09 10^6/uL (4.0-5.20) Hemoglobin 15.2 g/dL (12.2-16.2) Hematocrit 45.6 % (36.0-46.0) Mean Corpuscular Volume 89.6 fL (80.0-100.0) Mean Corpuscular Hemoglobin 29.8 pg (28.0-32.0) Mean Corpuscular Hemoglobin Concent 33.2 g/dL (32.0-36.0) Red Cell Distribution Width 16.4 % (11.8-14.3) Platelet Count 96 10^3/uL (140-450) Mean Platelet Volume 9.9 fL (6.9-10.8) Neutrophils (%) (Auto) 65.2 % (37.0-80.0) Lymphocytes (%) (Auto) 19.1 % (10.0-50.0) Monocytes (%) (Auto) 10.8 % (0.0-12.0) Eosinophils (%) (Auto) 4.0 % (0.0-7.0) Basophils (%) (Auto) 0.9 % (0.0-2.0) Neutrophils # (Auto) 3.7 10 ^3/uL (1.6-8.6) Lymphocytes # (Auto) 1.1 10 ^3/uL (0.4-5.4) Monocytes # (Auto) 0.6 10 ^3/uL (0-1.3) Eosinophils # (Auto) 0.2 10 ^3/uL (0-0.8) Basophils # (Auto) 0.1 10 ^3/uL (0-0.2) Nucleated Red Blood Cells 0.1 % Sodium Level 142 mmol/L (136-145) Potassium Level 3.7 mmol/L (3.5-5.1) Chloride Level 106 mmol/L (98-107) Carbon Dioxide Level 30 mmol/L (20-31) Anion Gap 6 (5-15) Blood Urea Nitrogen 25 mg/dL (9-23) Creatinine 1.34 mg/dL (0.550-1.02) Glomerular Filtration Rate Calc 45 mL/min (>90) BUN/Creatinine Ratio 18.7 (10.0-20.0) Serum Glucose 126 mg/dL (74-106) Calcium Level 9.9 mg/dL (8.7-10.4) Absolute Neutrophils (auto) 4.5 x10E3/uL (1.4-7.0) Absolute Lymphocytes (auto) 1.2 x10E3/uL (0.7-3.1) Absolute Monocytes (auto) 0.7 x10E3/uL (0.1-0.9) Absolute Eosinophils (auto) 0.1 x10E3/uL (0.0-0.4) Absolute Basophils (auto) 0.1 x10E3/uL (0.0-0.2) Immature Granulocytes % 0 % (Not Estab.) Immature Granulocytes # 0 x10E3/uL (0.0-0.1) Immature Blood Cells (.) Hematology Comments (.) Vitamin B12 Level 404 pg/mL (211-911) Vitamin D 25-Hydroxy 24.6 ng/mL (30.0-100) Folic Acid 11.21 ng/mL (>5.38) Percent CD4 Cells 59.9 % (30.8-58.5) Absolute CD4 Count 719 /uL (359-1519) T-Lymphocyte CD4/CD8 Ratio 2.63 (0.92-3.72) Percent CD8 Cells 22.8 % (12.0-35.5) Absolute CD8 Count 274 /uL (109-897) Total Bilirubin 0.2 mg/dL (0.2-1.0) Direct Bilirubin < 0.1 mg/dL (<0.3) Aspartate Amino Transferase (AST) 44 U/L (13-40) Alanine Aminotransferase (ALT) 43 U/L (7-40) Alkaline Phosphatase 88 U/L (46-116) Troponin I High Sensitivity 4 ng/L (</=34) B-Type Natriuretic Peptide 27.98 pg/mL (0-100) Total Protein 7.4 g/dL (5.7-8.2) Albumin 4.3 g/dL (3.2-4.8) Thyroid Stimulating Hormone (TSH) 3.37 uIU/mL (0.55-4.78) Test 04/17/25 09:43 Urine Color Light-yellow (Yellow) Urine Clarity Clear (Clear) Urine pH 5.5 (5.0-9.0) Urine Specific [place] 1.028 (1.001-1.035) Urine Protein Negative (Negative) Urine Ketones Negative (Negative) Urine Blood Negative /uL (Negative) Urine Nitrite Negative (Negative) Urine Bilirubin Negative (Negative) Urine Urobilinogen Normal mg/dL (Negative) Urine Leukocyte Esterase Negative /uL (Negative) Urine RBC 1 /hpf (0 - 4) Urine Microscopic WBC 3 /HPF (0-5) Urine Squamous Epithelial Cells Few /hpf (<5) Urine Bacteria Mod /hpf (None Seen) Urine Glucose 4+ mg/dL (Normal) Other Laboratory Tests 04/21/25 05:36 Brief Hx & Hospital Course: 59 F with HIV on triumeq (CD4 532), pafib on Eliquis, HFpEF 60%, hx of CVA, IDDM, CKD, ex smoker admitted for weakness and recurrent falls. patient had dizziness w/o LOC, and pain 2/2 fall. patient also had hip osteoarthritis and b/l peripheral neuropathy and chronic venous stasis with varicose veins contributing to the balance issue, will benefit from SNF. Pain management with kati, seen by PT, recommended SNF for rehab. stable to ut. meds sent. Condition at Discharge: Stable Final Diagnosis/Problems List deconditioning generalized weakness R hip pain 2/2 OA dizziness likely orthostatic hypotension HIV dysphagia likely GERD slow transit constipation pAfib on Eliquis HFpEF no exacerbation HTN IDDM uncontrolled hx of seizure? CKD stage 3b diabetic peripheral neuropathy frailty Discharge Disposition: [facility] Discharge Instruct/Medications Diet: Cardiac 2g Na,low cholest Activity: No Restrictions, As Tolerated Follow Up/Referral: pcp 1-2 weeks Scheduled Wdhtxkvm-Agcwdfykjcjq-Ivkmhwnh (Triumeq 600-50-300 mg), 1 TAB PO DAILY, (Reported) Amiodarone HCl (Amiodarone HCl), 100 MG PO BID Apixaban Base (Eliquis), 1 TAB PO BID, (Reported) Aspirin (Aspirin), 1 TAB PO DAILY, (Reported) Atorvastatin Calcium (Atorvastatin Calcium), 1 TAB PO DAILY, (Reported) Cetirizine HCl (Cetirizine Hydrochloride), 1 TAB PO DAILY, (Reported) Cholecalciferol (Vitamin D-3), 2,000 UNIT PO DAILY Cyclobenzaprine HCl (Cyclobenzaprine Hydrochlo), 10 MG PO TID Dapagliflozin Propanediol (Dapagliflozin Propanediol), 1 TAB PO DAILY, (Reported) Dapagliflozin Propanediol (Farxiga), 5 MG PO DAILY, (Reported) Duloxetine Hcl (Cymbalta), 1 CAP PO BID, (Reported) Ferrous Sulfate (Ferosul), 1 TAB PO DAILY, (Reported) Furosemide (Lasix), 40 MG PO DAILY, (Reported) Hydrocodone-Acetaminophen (Hydrocodone/Acetaminophen 5-325 mg), 2 TAB PO BID, (Reported) Insulin Glargine (Basaglar Kwikpen), 100 UNITS SC BID, (Reported) Insulin Lispro (Insulin Lispro Kwikpen), 10 UNITS SC DAILY, (Reported) Lisinopril (Lisinopril), 2.5 MG PO DAILY, (Reported) Potassium Chloride (Potassium Chloride Cr), 1 TAB PO DAILY, (Reported) Pregabalin (Pregabalin), 1 CAP PO TID, (Reported) Sitagliptin Phosphate (Januvia), 1 DAILY, (Reported) Scheduled PRN Acetaminophen (Acetaminophen), 500 MG PO Q8HPRN PRN for MILD PAIN, (Reported) Cyclobenzaprine HCl (Cyclobenzaprine Hydrochlo), 1 TAB PO BID PRN for PAIN FOR MUSCLE SPASMS, (Reported) Famotidine (Famotidine), 1 TAB PO BID PRN for ACID REFLUX AND ABDOMINAL PAIN, (Reported) Hydrocodone-Acetaminophen (Hydrocodone Bitartrate/AC 5-325 mg), 1 TAB PO Q6HP PRN Discharge Statement: "Patient was advised to return to the ER or call 911 if any headaches, dizziness, shortness of breath, chest pain, abdominal pain, bleeding, fevers, or worsening of medical condition. Patient was counseled about treatment plan, medications, possible side effects, patientverbalized understanding. All questions were answered to the best of my ability. This discharge took greater then 30 minutes in planning, reviewing documentation, counseling the patient, and discussing with other team members." ASSESSMENT ASSESSMENT Assessment deconditioning Date of Service: Apr 21, 2025 Billing Provider: LUCRECIA HENSON MD Common Visit Codes: [id number]-JBW/OBS DISCH DAY >30min LUCRECIA HENSON MD Apr 21, 2025 16:30
== END 2025-04-21 17:38 | DRG 204 ==
LOC: EDBD 09:25 → ER 09:25 → OVERFLOW 14:52 → CENTRAL 04-18 15:18
PROVIDERS: ADMIT Student in an Organized Health Care Education/Training Program; ATTEND Student in an Organized Health Care Education/Training Program
DX: I95.1 Orthostatic hypotension (principal); I13.0 Hypertensive heart and chronic kidney disease with heart failure and stage 1 through stage 4 chronic kidney disease, or unspecified chronic kidney disease; I50.30 Unspecified diastolic (congestive) heart failure; E11.22 Type 2 diabetes mellitus with diabetic chronic kidney disease; E89.0 Postprocedural hypothyroidism; N18.32 Chronic kidney disease, stage 3b; M16.11 Unilateral primary osteoarthritis, right hip; K21.9 Gastro-esophageal reflux disease without esophagitis; I48.0 Paroxysmal atrial fibrillation; E11.42 Type 2 diabetes mellitus with diabetic polyneuropathy; E11.65 Type 2 diabetes mellitus with hyperglycemia; K59.01 Slow transit constipation; F17.210 Nicotine dependence, cigarettes, uncomplicated; R54 Age-related physical debility; Z79.4 Long term (current) use of insulin; Z86.73 Personal history of transient ischemic attack (TIA), and cerebral infarction without residual deficits; Z88.0 Allergy status to penicillin; Z88.1 Allergy status to other antibiotic agents; Z90.49 Acquired absence of other specified parts of digestive tract
CPT/HCPCS: 36415; 70450; 71045; 80048; 80076; 81001; 82306; 82607; 82746; 82962; 83880; 84443; 84484; 85025; 86360; 87081; 97110; 97116; 97163; 97530; G0378; J1815; J2470

== ENCOUNTER 2025-04-22 03:10 | Emergency (ER) | payer MEDICAID ==
[~2025-04-22] VITALS: Ht 162.6 cm; Wt 95.4 kg
[~2025-04-22 03:10] MED LIST changes: +ABAC1TAB3 PO; +ACET-1881 PO; +DAPA1TAB4 PO; +DULO60CA41 PO; -FENO145T27 PO; +FURO1TAB31 PO; -FURO1TAB33 PO; -INSLANTI SC; +LISI2.5T47 PO; +POTA-36 PO
--- NOTE | 2025-04-22 04:00 | ED.PDOC ---
Back pain HPI HPI Comments Patient is a 59-year-old female with past medical history of HIV, AFib, diabetes, CHF, CKD, presenting with persistent right hip pain after mechanical trip and fall last week. Of note, patient was seen here last week and admitted for a syncope workup with fall. She states that her right hip pain was never addressed, so she was sent back home yesterday, she called EMS tonight for further evaluation of her right hip pain. She is still ambulating with her walker at baseline. She has not tried anything for his symptoms at home. She states nothing makes her symptoms better or worse. She denies any new falls or trauma to the area. She denies any chest pain, shortness of breath, nausea, vomiting, weakness, numbness. Chief Complaint: Back Pain Time Seen by MD: 03:54 Primary Care Provider: [facility] Allergies: Coded Allergies: Loperamide (Verified Allergy, Severe, 08/13/23) Nystatin (Verified Allergy, Severe, 08/13/23) Penicillins (Verified Allergy, Severe, 08/13/23) Diphenhydramine (Verified Allergy, Unknown, 09/23/24) Home Meds Active Scripts Cholecalciferol (VITAMIN D-3) 2,000 Unit Tab, 2000 UNIT PO DAILY, #30 TAB Prov:JENNYFER MCDANIEL MD 01/11/25 Hydrocodone-Acetaminophen (Hydrocodone Bitartrate/AC 5-325 mg) 1 Tab Tab, 1 TAB PO Q6HP PRN, #30 TAB Prov:JENNYFER MCDANIEL MD 01/11/25 Cyclobenzaprine HCl (Cyclobenzaprine Hydrochlo) 10 Mg Tab, 10 MG PO TID, #30 TAB Prov:JENNYFER MCDANIEL MD 01/11/25 Amiodarone HCl (Amiodarone HCl) 200 Mg Tab, 100 MG PO BID for 30 Days, #30 TAB please hold if heart rate remains below 50 / min Prov:LISA OAKES RESIDENT 12/30/24 Reported Medications Furosemide (Lasix) 40 Mg Tab, 40 MG PO DAILY, TAB 04/17/25 Lisinopril (Lisinopril) 2.5 Mg Tab, 2.5 MG PO DAILY for 30 Days, MG 04/17/25 Potassium Chloride (POTASSIUM CHLORIDE CR) 10 Meq Tb, 1 TAB PO DAILY, #30 TAB 5 Refills 04/17/25 Acetaminophen (Acetaminophen) 325 Mg Tab, 500 MG PO Q8HPRN PRN for MILD PAIN for 30 Days, MG 0 Refills 04/17/25 Sdnldqdm-Udfbtefdubbw-Hpriwlyz (Triumeq 600-50-300 mg) 1 Tab Tab, 1 TAB PO DAILY, TAB 04/17/25 Dapagliflozin Propanediol (Farxiga) 10 Mg Tab, 5 MG PO DAILY, TAB 04/17/25 Duloxetine Hcl (Cymbalta) 60 Mg Cap, 1 CAP PO BID, #90 CAP 3 Refills 04/17/25 Insulin Glargine (Basaglar Kwikpen) 100 Unit/Ml Inj, 100 UNITS SC BID for 30 Days, #60 08/18/24 Insulin Lispro (Insulin Lispro Kwikpen) 100 Unit/Ml Inj, 10 UNITS SC DAILY for 100 Days, #15 08/18/24 Cetirizine HCl (Cetirizine Hydrochloride) 10 Mg Tab, 1 TAB PO DAILY for 90 Days, #90 08/18/24 Dapagliflozin Propanediol (Dapagliflozin Propanediol) 5 Mg Tab, 1 TAB PO DAILY for 100 Days, #100 08/18/24 Ferrous Sulfate (Ferosul) 325 Mg Tab, 1 TAB PO DAILY for anemia 06/08/24 Sitagliptin Phosphate (Januvia) 100 Mg Tab, 1 DAILY for 90 Days, #90 06/08/24 Cyclobenzaprine HCl (Cyclobenzaprine Hydrochlo) 10 Mg Tab, 1 TAB PO BID PRN for PAIN FOR MUSCLE SPASMS for 30 Days, #15 08/13/23 Famotidine (Famotidine) 20 Mg Tab, 1 TAB PO BID PRN for ACID REFLUX AND ABDOMINAL PAIN for 90 Days, #180 08/13/23 Hydrocodone-Acetaminophen (Hydrocodone/Acetaminophen 5-325 mg) 1 Tab Tab, 2 TAB PO BID 08/13/23 Pregabalin (Pregabalin) 200 Mg Cap, 1 CAP PO TID for 30 Days, #90 08/13/23 Apixaban Base (ELIQUIS) 5 Mg Tab, 1 TAB PO BID for 45 Days, #90 08/13/23 Aspirin (Aspirin) 81 Mg Chw, 1 TAB PO DAILY for 90 Days, #90 08/13/23 Atorvastatin Calcium (ATORVASTATIN CALCIUM) 40 Mg Tab, 1 TAB PO DAILY for 90 Days, #90 08/13/23 Past Medical History PAST MEDICAL HISTORY: AFIB, CHF, CKF, CVA, DM, HIV, HTN, Seizures Surgical History: Cholecystectomy, Hernia Repair, Thyroidectomy REGISTRATION REP History: No Pertinent REGISTRATION REP History Family History Family History: Reviewed,noncontributory to illness Social History Smoker: Cigarettes, Less Than 1 Pack/Day Alcohol: Denies ETOH Use Drugs: Denies Drug Use Lives In: Assisted Care Constitutional: denies: chills, diaphoresis, fatigue, fever, malaise, sweats, weakness, others EENTM: denies: blurred vision, double vision, ear bleeding, ear discharge, ear drainage, ear pain, ear ringing, eye pain, eye redness, hearing loss, mouth pain, mouth swelling, nasal discharge, nose bleeding, nose congestion, nose pain, photophobia, tearing, throat pain, throat swelling, voice changes, others Respiratory: denies: cough, hemoptysis, orthopnea, SOB at rest, shortness of breath, SOB with excertion, stridor, wheezing, others Cardiovascular: denies: chest pain, dizzy spells, diaphoresis, Dyspnea on exertion, edema, irregular heart beat, left arm pain, lightheadedness, palpitations, PND, syncope, others Gastrointestinal: denies: abdomen distended, abdominal pain, blood streaked bowels, constipated, diarrhea, dysphagia, difficulty swallowing, hematemesis, melena, nausea, poor appetite, poor fluid intake, rectal bleeding, rectal pain, vomiting, others Genitourinary: denies: abnormal vagina bleeding, burning, dyspareunia, dysuria, flank pain, frequency, hematuria, incontinence, pain, , vagina discharge, urgency, others Neurological: denies: dizziness, fainting, headache, left sided numbness, left sided weakness, numbness, paresthesia, pre-existing deficit, right sided numbness, right sided weakness, seizure, speech problems, tingling, tremors, weakness, others Musculoskeletal: reports: joint pain; denies: back pain, gout, joint swelling, muscle pain, muscle stiffness, neck pain, others Integumetry: denies: bruises, change in color, change in hair/nails, dryness, laceration, lesions, lumps, rash, wounds, others Allergic/Immunocompromised: denies: Difficulty Healing, Frequent Infections, Hives, Itching, others Hematologic/Lymphatic: denies: anemia, blood clots, easy bleeding, easy bruising, swollen glands, others Endocrine: denies: excessive hunger, excessive sweating, excessive thirst, excessive urination, flushing, intolerance to cold, intolerance to heat, unexplained weight gain, unexplained weight loss, others Psychiatric: denies: anxiety, bipolar disorder, depression, hopeless, panic disorder, schizophrenia, sleepless, suicidal, others Physical Exam General Appearance: No Apparent Distress, Normal HEENT: Normal ENT Inspection, Pharynx Normal, TMs Normal Neck: Full Range of Motion, Non-Tender, Normal, Normal Inspection Respiratory: Chest Non-Tender, Lungs Clear, No Accessory Muscle Use, No Respiratory Distress, Normal Breath Sounds Cardiovascular: No Edema, No JVD, No Murmur, No Gallop, Normal Peripheral Pulses, Regular Rate/Rhythm Breast Exam: Deferred Gastrointestinal: No Organomegaly, Non Tender, No Pulsatile Mass, Normal Bowel Sounds, Soft Genitalia: Deferred Pelvic: Deferred Rectal: Deferred Extremities: No calf tenderness, Normal capillary refill, Normal inspection, Normal range of motion, Non-tender, No pedal edema, Other (Mild tenderness to palpation over right hip. No obvious deformity. Neurovascularly intact) Musculoskeletal : Apperance: Normal Neurologic: Alert, putty mixer and applier II-XII nml as Tested, No Motor Deficits, Normal Affect, Normal Mood, No Sensory Deficits Cerebellar Function: Normal Reflexes: Normal Skin: Dry, Normal Color, Warm Lymphatic: No Adenopathy Was a procedure done? Was a procedure done?: No Back Pain Differential Dx Differential Diagnosis: Fracture, Musculoskeletal Pain, Strain X-Ray, Labs, Meds, VS Vital Signs Date Time Temp Pulse Resp B/P (MAP) Pulse Ox O2 Delivery O2 Flow Rate FiO2 04/22/25 04:55 Room Air 0 04/22/25 04:48 98.0 62 17 129/78 (95) 98 98.0 04/22/25 03:19 98.0 70 20 126/82 99 98.0 Current Medications Medications (Trade) Dose Ordered Sig/Uyen Route Start Time Stop Time Status Last Admin Acetaminophen/ Hydrocodone Bitart ([place] 5/325MG Tab) 1 tab ONCE ONCE PO 04/22/25 04:00 04/22/25 04:01 DC 04/22/25 04:50 X-Ray, Labs, Meds, VS Comment Patient presenting with right hip pain status post mechanical trip and fall 1 week ago. Was already admitted to the hospital for 1 week for syncope evaluation and was discharged to a SNF, however is returning for persistent right hip pain as she states this was not interested in her admission. Patient is ambulating without difficulty at baseline, so low concern for fracture. Right hip x-ray to evaluate for fracture or Dislocation. P.o. Rusk Re-evaluate Social determinant surveillance affecting care: Social determinants of health that will affect the patient's care: Poor health literacy (additional time provided an explanation) Poor access to outpatient care/followup (provided outpatient resources) Time of 1ST Reevaluation: 05:33 Reevaluation 1ST: Improved Patient Education/Counseling: Diagnosis, Treatment Family Education/Counseling: No Family Present SEPSIS Sepsis Screen Physician Orders R Hip Complete Xray (04/22/25 03:55) Vital Signs Date Time Temp Pulse Resp B/P (MAP) Pulse Ox O2 Delivery O2 Flow Rate FiO2 04/22/25 04:55 Room Air 0 04/22/25 04:48 98.0 62 17 129/78 (95) 98 98.0 04/22/25 03:19 98.0 70 20 126/82 99 98.0 Medications Medications Dose Ordered Sig/Uyen Route Start Time Stop Time Status Last Admin Dose Admin Acetaminophen/ Hydrocodone Bitart 1 tab ONCE ONCE PO 04/22/25 04:00 04/22/25 04:01 DC 04/22/25 04:50 Departure 1 Departure Time of Disposition: 05:32 (On reassessment, patient's pain is improved. Imaging negative for fracture or dislocation, however does show severe ar thritis. Discussed with patient need for outpatient follow up with orthopedics and pain management. Patient ambulating at baseline. Given strict return precautions and PMD follow-up.) Impression: Primary Impression: Right hip pain Additional Impression: Accidental fall Qualified Codes: W19.XXXD - Unspecified fall, subsequent encounter Disposition: HOME / SELF CARE / HOMELESS Condition: Stable Discharged With: Self Critical Care Note Critical Care Time?: No Stability Stability form required: No FATUMA LEIJA MD Apr 22, 2025 04:00
[2025-04-22 04:48] VITALS: BP 129/78; PULSE 62; RESP 17; TEMP 98; O2SAT 98
[2025-04-22] MEDS: HYDROcodone-ACET 5/325MG TAB PO ONE (04:50)
--- NOTE | 2025-04-22 05:31 | DVH ---
CLINICAL INDICATION: fall, hip pin TECHNIQUE: XY R HIP COMPLETE XRAY Comparison: XY L HIP COMPLETE XRAY on DOS: 01/09/25, XY R HIP COMPLETE XRAY on DOS: 01/09/25, XY L HIP COMPLETE XRAY on DOS: 12/29/24, XY R HIP COMPLETE XRAY on DOS: 12/29/24, XY L HIP COMPLETE XRAY on DOS: 06/06/24 FINDINGS/IMPRESSION: : There is no evidence of acute fracture or dislocation. Soft tissues are unremarkable. Moderate to severe degenerative changes of bilateral hips. Sensitivity of the examination is limited secondary to patient body habitus.
== END 2025-04-22 05:55 | disposition home or self-care (01) ==
LOC: ER 03:10 → EDBD 03:10 → ER 05:55
DX: M25.551 Pain in right hip (principal); F17.210 Nicotine dependence, cigarettes, uncomplicated; I13.0 Hypertensive heart and chronic kidney disease with heart failure and stage 1 through stage 4 chronic kidney disease, or unspecified chronic kidney disease; E11.22 Type 2 diabetes mellitus with diabetic chronic kidney disease; N18.9 Chronic kidney disease, unspecified; I50.9 Heart failure, unspecified; I48.91 Unspecified atrial fibrillation; Z79.899 Other long term (current) drug therapy; Z98.890 Other specified postprocedural states; Z90.49 Acquired absence of other specified parts of digestive tract; Z88.0 Allergy status to penicillin; Z88.1 Allergy status to other antibiotic agents; Z86.73 Personal history of transient ischemic attack (TIA), and cerebral infarction without residual deficits; Z79.891 Long term (current) use of opiate analgesic; Z90.89 Acquired absence of other organs; Z79.84 Long term (current) use of oral hypoglycemic drugs; Z79.82 Long term (current) use of aspirin; Z79.624 Long term (current) use of inhibitors of nucleotide synthesis; Z79.4 Long term (current) use of insulin; Z79.01 Long term (current) use of anticoagulants; W01.0XXA Fall on same level from slipping, tripping and stumbling without subsequent striking against object, initial encounter; Y93.89 Activity, other specified; Y92.89 Other specified places as the place of occurrence of the external cause; Y99.8 Other external cause status
CPT/HCPCS: 73502

== ENCOUNTER 2025-04-22 07:39 | Emergency (ER) | payer MEDICAID ==
[~2025-04-22] VITALS: Ht 162.6 cm; Wt 100.0 kg
--- NOTE | 2025-04-22 08:12 | ED.PDOC ---
History of Present Illness HPI Comments A 59 YEAR OLD FEMALE PRESENTS TO THE ED WITH COMPLAINT OF WELL EXAMINATION. PT STATES SHE WAS AT LAST WEEK FOR CHEST PAIN AND SHORTNESS OF BREATH. PT STATES SHE WAS ADMITTED AND DISCHARGED A FEW DAYS PRIOR. PT STATES SHE CAME BACK TODAY BECAUSE SHE STATES SHE HAS HISTORY OF A FIB AND WANTS A EKG AND CHEST X-RAY. PT STATES SHE IS ALSO DISSATISFIED AT CURRENT LIVING SITUATION AT [facility] AND STATES SHE WANTS NEW LIVING ARRANGEMENT. PATIENT DENIES FEVER, CHILLS, SHORTNESS OF BREATH, CHEST PAIN, ABDOMINAL PAIN, NAUSEA, VOMITING, HEADACHE, OR OTHER COMPLAINTS. NO OTHER SYMPTOMS OR MODIFYING FACTORS AT THIS TIME. PATIENT IS ALERT, ORIENTED X 4, AND HAS STEADY GAIT. Chief Complaint: General Weakness Time Seen by MD: 08:16 Primary Care Provider: [facility] Reviewed Notes: Nurses Notes, Medications, Allergies Allergies: Coded Allergies: Loperamide (Verified Allergy, Severe, 08/13/23) Nystatin (Verified Allergy, Severe, 08/13/23) Penicillins (Verified Allergy, Severe, 08/13/23) Diphenhydramine (Verified Allergy, Unknown, 09/23/24) Home Meds Active Scripts Cholecalciferol (VITAMIN D-3) 2,000 Unit Tab, 2000 UNIT PO DAILY, #30 TAB Prov:JENNYFER MCDANIEL MD 01/11/25 Hydrocodone-Acetaminophen (Hydrocodone Bitartrate/AC 5-325 mg) 1 Tab Tab, 1 TAB PO Q6HP PRN, #30 TAB Prov:JENNYFER MCDANIEL MD 01/11/25 Cyclobenzaprine HCl (Cyclobenzaprine Hydrochlo) 10 Mg Tab, 10 MG PO TID, #30 TAB Prov:JENNYFER MCDANIEL MD 01/11/25 Amiodarone HCl (Amiodarone HCl) 200 Mg Tab, 100 MG PO BID for 30 Days, #30 TAB please hold if heart rate remains below 50 / min Prov:LISA OAKES RESIDENT 12/30/24 Reported Medications Furosemide (Lasix) 40 Mg Tab, 40 MG PO DAILY, TAB 04/17/25 Lisinopril (Lisinopril) 2.5 Mg Tab, 2.5 MG PO DAILY for 30 Days, MG 04/17/25 Potassium Chloride (POTASSIUM CHLORIDE CR) 10 Meq Tb, 1 TAB PO DAILY, #30 TAB 5 Refills 04/17/25 Acetaminophen (Acetaminophen) 325 Mg Tab, 500 MG PO Q8HPRN PRN for MILD PAIN for 30 Days, MG 0 Refills 04/17/25 Vhbulvcm-Yahanvppxqug-Jbknhgco (Triumeq 600-50-300 mg) 1 Tab Tab, 1 TAB PO DAILY, TAB 04/17/25 Dapagliflozin Propanediol (Farxiga) 10 Mg Tab, 5 MG PO DAILY, TAB 04/17/25 Duloxetine Hcl (Cymbalta) 60 Mg Cap, 1 CAP PO BID, #90 CAP 3 Refills 04/17/25 Insulin Glargine (Basaglar Kwikpen) 100 Unit/Ml Inj, 100 UNITS SC BID for 30 Days, #60 08/18/24 Insulin Lispro (Insulin Lispro Kwikpen) 100 Unit/Ml Inj, 10 UNITS SC DAILY for 100 Days, #15 08/18/24 Cetirizine HCl (Cetirizine Hydrochloride) 10 Mg Tab, 1 TAB PO DAILY for 90 Days, #90 08/18/24 Dapagliflozin Propanediol (Dapagliflozin Propanediol) 5 Mg Tab, 1 TAB PO DAILY for 100 Days, #100 08/18/24 Ferrous Sulfate (Ferosul) 325 Mg Tab, 1 TAB PO DAILY for anemia 06/08/24 Sitagliptin Phosphate (Januvia) 100 Mg Tab, 1 DAILY for 90 Days, #90 06/08/24 Cyclobenzaprine HCl (Cyclobenzaprine Hydrochlo) 10 Mg Tab, 1 TAB PO BID PRN for PAIN FOR MUSCLE SPASMS for 30 Days, #15 08/13/23 Famotidine (Famotidine) 20 Mg Tab, 1 TAB PO BID PRN for ACID REFLUX AND ABDOMINAL PAIN for 90 Days, #180 08/13/23 Hydrocodone-Acetaminophen (Hydrocodone/Acetaminophen 5-325 mg) 1 Tab Tab, 2 TAB PO BID 08/13/23 Pregabalin (Pregabalin) 200 Mg Cap, 1 CAP PO TID for 30 Days, #90 08/13/23 Apixaban Base (ELIQUIS) 5 Mg Tab, 1 TAB PO BID for 45 Days, #90 08/13/23 Aspirin (Aspirin) 81 Mg Chw, 1 TAB PO DAILY for 90 Days, #90 08/13/23 Atorvastatin Calcium (ATORVASTATIN CALCIUM) 40 Mg Tab, 1 TAB PO DAILY for 90 Days, #90 08/13/23 Information Source: Patient Mode of Arrival: Ambulatory Severity: Mild Timing: Days Duration: Days Prehospital treatment: None Medication Refill: For: Other (REQUESTS CHEST X-RAY AND EKG TEST, HOME PLACEMENT ) Past Medical History PAST MEDICAL HISTORY: AFIB, CHF, CKF, CVA, DM, HIV, HTN, Seizures Surgical History: Cholecystectomy, Hernia Repair, Thyroidectomy UNDERWRITING SALES REPRESENTATIVE History: No Pertinent UNDERWRITING SALES REPRESENTATIVE History Family History Family History: Reviewed,noncontributory to illness Social History Smoker: Cigarettes, Less Than 1 Pack/Day Alcohol: Denies ETOH Use Drugs: Denies Drug Use Lives In: Assisted Care Constitutional: denies: chills, diaphoresis, fatigue, fever, malaise, sweats, weakness, others EENTM: denies: blurred vision, double vision, ear bleeding, ear discharge, ear drainage, ear pain, ear ringing, eye pain, eye redness, hearing loss, mouth pain, mouth swelling, nasal discharge, nose bleeding, nose congestion, nose pain, photophobia, tearing, throat pain, throat swelling, voice changes, others Respiratory: denies: cough, hemoptysis, orthopnea, SOB at rest, shortness of breath, SOB with excertion, stridor, wheezing, others Cardiovascular: denies: chest pain, dizzy spells, diaphoresis, Dyspnea on exertion, edema, irregular heart beat, left arm pain, lightheadedness, palpitations, PND, syncope, others Gastrointestinal: denies: abdomen distended, abdominal pain, blood streaked bowels, constipated, diarrhea, dysphagia, difficulty swallowing, hematemesis, melena, nausea, poor appetite, poor fluid intake, rectal bleeding, rectal pain, vomiting, others Genitourinary: denies: abnormal vagina bleeding, burning, dyspareunia, dysuria, flank pain, frequency, hematuria, incontinence, pain, , vagina discharge, urgency, others Neurological: denies: dizziness, fainting, headache, left sided numbness, left sided weakness, numbness, paresthesia, pre-existing deficit, right sided numbness, right sided weakness, seizure, speech problems, tingling, tremors, weakness, others Musculoskeletal: denies: back pain, gout, joint pain, joint swelling, muscle pain, muscle stiffness, neck pain, others Integumetry: denies: bruises, change in color, change in hair/nails, dryness, laceration, lesions, lumps, rash, wounds, others Allergic/Immunocompromised: denies: Difficulty Healing, Frequent Infections, Hives, Itching, others Hematologic/Lymphatic: denies: anemia, blood clots, easy bleeding, easy bruising, swollen glands, others Endocrine: denies: excessive hunger, excessive sweating, excessive thirst, excessive urination, flushing, intolerance to cold, intolerance to heat, unexplained weight gain, unexplained weight loss, others Psychiatric: denies: anxiety, bipolar disorder, depression, hopeless, panic disorder, schizophrenia, sleepless, suicidal, others All Other Systems: Reviewed and Negative Physical Exam General Appearance: No Apparent Distress, Normal, Other (ANXIOUS ) HEENT: Normal ENT Inspection, PERRL/EOMI, Pharynx Normal, TMs Normal Neck: Full Range of Motion, Non-Tender, Normal, Normal Inspection Respiratory: Chest Non-Tender, Lungs Clear, No Accessory Muscle Use, No Respiratory Distress, Normal Breath Sounds Cardiovascular: No Edema, No JVD, No Murmur, No Gallop, Normal Peripheral Pulses, Regular Rate/Rhythm Breast Exam: Deferred Gastrointestinal: No Organomegaly, Non Tender, No Pulsatile Mass, Normal Bowel Sounds, Soft Genitalia: Deferred Pelvic: Deferred Rectal: Deferred Extremities: No calf tenderness, Normal capillary refill, Normal inspection, Normal range of motion, Non-tender, No pedal edema Musculoskeletal : Apperance: Normal Neurologic: Alert, mba intern II-XII nml as Tested, No Motor Deficits, Normal Affect, Normal Mood, No Sensory Deficits Cerebellar Function: Normal Reflexes: Normal Skin: Dry, Normal Color, Warm Peripheral Pulses: 2+ carotid (R), 2+ carotid (L) Lymphatic: No Adenopathy Was a procedure done? Was a procedure done?: No EKG EKG : Pulse Rate (adult): 65 [place]: Normal Block: None Hypertrophy: None ST: Normal Differential Dx Considerations may include: WELL EXAMINATION, REQUESTS CHEST X-RAY AND EKG X-Ray, Labs, Meds, VS Vital Signs Date Time Temp Pulse Resp B/P (MAP) Pulse Ox O2 Delivery O2 Flow Rate FiO2 04/22/25 10:10 98.2 76 18 193/83 (119) 97 98.2 04/22/25 08:46 65 04/22/25 08:10 65 04/22/25 08:05 97.6 67 16 134/81 (98) 95 97.6 04/22/25 08:05 67 16 95 Room Air 04/22/25 07:42 97.6 67 16 134/81 95 97.6 [facility] [address] [address] Ph: [phone] DIAGNOSTIC IMAGING Diagnostic Imaging Report : [id number] Signed PATIENT: [facility]CT: [id number] UNIT: [id number] : 1965 LOC: ER ROOM / BED: / AGE / SEX: 59 / F ADM STATUS: REG ER SERVICE 4 ORDERING PHYSICIAN: JEFF HUGO PROCEDURE(s): CXR1 - CHEST XRAY 1 VIEW REASON: pt requests x-ray ORDER NUMBER(s): [id number], ACCESSION NUMBER(s): [id number] CHEST RADIOGRAPH Indication: pt requests x-ray Technique: Single frontal view of the chest was obtained COMPARISON: XY CHEST PORTABLE on DOS: 04/17/25, XY CHEST PORTABLE on DOS: 01/24/25, XY CHEST XRAY 1 VIEW on DOS: 01/09/25, XY CHEST PORTABLE on DOS: 01/02/25, XY CHEST PORTABLE on DOS: 12/28/24 FINDINGS: Lines and Tubes: None Lungs: Clear Pleura: No effusion. No pneumothorax. Cardiomediastinal contours: Unremarkable Bones: Unremarkable IMPRESSION: No acute disease. ATED BY: ELGIN CHARLES MD DICTATED DATE/TIME: 04/22/25846 SIGNED BY: ELGIN CHARLES MD SIGNED DATE/TIME: 04/22/25846 CC: X-Ray, Labs, Meds, VS Comment COURSE: EXTERNAL MEDICAL RECORDS REVIEWED: [NONE] INDEPENDENT HISTORIANS: [NONE] SOCIAL DETERMINANTS OF HEALTH: [NONE] LABS ORDERED: NONE REVIEWED AND INTERPRETED RESULTS: NONE IMAGING ORDERED: CHEST X-RAY: NORMAL, NO ACUTE FINDING, READ BY ME, PENDING RADIOLOGIST READING. TREATMENTS ORDERED: ACCOUNT MANAGER FOREST SERVICE CONSULT PROCEDURES PERFORMED: NONE CRITICAL CARE TIME: NONE I HAVE DISCUSSED THE PATIENT WITH THE ATTENDING PHYSICIAN AND HE AGREES WITH THE PATIENT'S PLAN OF CARE AND DISPOSITION. BASED ON HISTORY OF PRESENT ILLNESS, AND PHYSICAL EXAM, PATIENT WILL BE DISCHARGED HOME. SHARED DECISION MAKING: DISCUSSED WITH PATIENT THAT THEIR WORKUP WAS NORMAL. PATIENT INSTRUCTED TO FOLLOW UP WITH PRIMARY CARE PROVIDER IN 1-2 DAYS FOR RE- EVALUATION OF SYMPTOMS. PATIENT VERBALIZES UNDERSTANDING TO RETURN TO ED FOR NEW OR WORSENING SYMPTOMS OR IF FOLLOW UP WITH PCP CANNOT BE OBTAINED. PATIENT FEELS COMFORTABLE GOING HOME AT THIS TIME. ALL QUESTIONS ADDRESSED AT TIME OF DISCHARGE. ALL PREVIOUS CHARTS FROM PREVIOUS VISITS TO DV WERE EVALUATED AND PT PLAN OF CARE UPDATED AT 0840 AM; PT IS MEDICALLY CLEARED; AWAITING ACCOUNT MANAGER FOREST SERVICE CONSULT FOR HOME PLACEMENT AT 1045 AM, ACCOUNT MANAGER FOREST SERVICE CONSULT WITH PT STATES: Provided patient with nursing home numbers and homeless resources provided by the [facility]. Patient will have to arrange placement using resources provided. Patient was provided with [employer] for Transportation. PT WILL BE DISCHARGED. Images Reviewed?: Images reviewed and evaluated by me Time of 1ST Reevaluation: 08:45 Reevaluation 1ST: Improved Time of 2ND Reevaluation: 11:01 Reevaluation 2ND: Improved Patient Education/Counseling: Diagnosis, Treatment, Need For Follow Up Family Education/Counseling: Diagnosis, Treatment, Need For Follow Up, No Family Present Medical Screening: No EMC Exist At This Time SEPSIS Sepsis Screen Date sepsis recognized/suspect: Apr 22, 2025 Time Sepsis recognized/suspect: 07 Recent Procedure: No On Antibiotic Therapy: No Respiratory Rate >20: No Heart Rate >90: No Temp<36 C (96.8 F) or >38.3 C: No SBP <90 or MAP <65 mmHG: No New Acute Mental Status Change: No Is the patient on CPAP, BIPAP,: No Physician Orders Electrocardigram (04/22/25 08:02) Chest Xray 1 View (04/22/25 08:05) * Bleacher Sulfite Pulp Consult (04/22/25 ) Vital Signs Date Time Temp Pulse Resp B/P (MAP) Pulse Ox O2 Delivery O2 Flow Rate FiO2 04/22/25 10:10 98.2 76 18 193/83 (119) 97 98.2 04/22/25 08:46 65 04/22/25 08:10 65 04/22/25 08:05 97.6 67 16 134/81 (98) 95 97.6 12/3/25 08:05 67 16 95 Room Air 04/22/25 07:42 97.6 67 16 134/81 95 97.6 Departure 1 Departure Time of Disposition: 11:01 Impression: Primary Impression: Wellness examination Additional Impressions: Chest x-ray requested Homeless Disposition: 01 HOME / SELF CARE / HOMELESS Condition: Stable Additional Instructions: INSTRUCTIONS: FOLLOW-UP WITH PCP IN 1 TO 2 DAYS. TAKE MEDICATIONS PRESCRIBED. RETURN TO ED FOR ANY NEW OR WORSENING SYMPTOMS. Discharged With: Self Critical Care Note Critical Care Time?: No Stability Stability form required: No Heart Score Heart Score: Heart Score Response (Comments) Value History N/A 0 EKG N/A 0 Age N/A 0 Risk Factors N/A 0 Troponin N/A 0 Total 0 I personally scribed for BETHELHASEEB MyersA PA ([email or web address]) on 04/22/25 at 08:12. Electronically submitted by Yaquelin Tadeo ([email or web address]). I personally scribed for BETHELJUANITAXIA PA ([email or web address]) on 04/22/25 at 08:23. Electronically submitted by Yaquelin Tadeo ([email or web address]). I personally scribed for BETHEL,YINXIA PA ([email or web address]) on 04/22/25 at 08:38. Electronically submitted by Yaquelin Tadeo ([email or web address]). I personally scribed for BETHEL,YINXIA PA ([email or web address]) on 04/22/25 at 09:33. Electronically submitted by Yaquelin Tadeo ([email or web address]). I personally scribed for BETHEL,YINXIA PA ([email or web address]) on 04/22/25 at 10:47. Electronically submitted by Yaquelin Tadeo ([email or web address]). HASEEB HUGOA PA Apr 22, 2025 08:12
--- NOTE | 2025-04-22 08:50 | DVH ---
CHEST RADIOGRAPH Indication: pt requests x-ray Technique: Single frontal view of the chest was obtained COMPARISON: XY CHEST PORTABLE on DOS: 04/17/25, XY CHEST PORTABLE on DOS: 01/24/25, XY CHEST XRAY 1 VIEW on DOS: 01/09/25, XY CHEST PORTABLE on DOS: 01/02/25, XY CHEST PORTABLE on DOS: 12/28/24 FINDINGS: Lines and Tubes: None Lungs: Clear Pleura: No effusion. No pneumothorax. Cardiomediastinal contours: Unremarkable Bones: Unremarkable IMPRESSION: No acute disease.
[2025-04-22 10:10] VITALS: BP 193/83; PULSE 76; RESP 18; TEMP 98.2; O2SAT 97
--- NOTE | 2025-04-24 09:59 | ECG ---
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
== END 2025-04-22 10:42 | disposition home or self-care (01) ==
LOC: ER 07:39
DX: Z00.00 Encounter for general adult medical examination without abnormal findings (principal); I13.0 Hypertensive heart and chronic kidney disease with heart failure and stage 1 through stage 4 chronic kidney disease, or unspecified chronic kidney disease; E11.22 Type 2 diabetes mellitus with diabetic chronic kidney disease; N18.9 Chronic kidney disease, unspecified; I50.9 Heart failure, unspecified; I48.91 Unspecified atrial fibrillation; F17.210 Nicotine dependence, cigarettes, uncomplicated; Z79.899 Other long term (current) drug therapy; Z88.1 Allergy status to other antibiotic agents; Z88.0 Allergy status to penicillin; Z90.89 Acquired absence of other organs; Z98.890 Other specified postprocedural states; Z86.73 Personal history of transient ischemic attack (TIA), and cerebral infarction without residual deficits; Z90.49 Acquired absence of other specified parts of digestive tract; Z79.84 Long term (current) use of oral hypoglycemic drugs; Z79.891 Long term (current) use of opiate analgesic; Z79.82 Long term (current) use of aspirin; Z79.624 Long term (current) use of inhibitors of nucleotide synthesis; Z79.4 Long term (current) use of insulin; Z79.01 Long term (current) use of anticoagulants; Z59.00 Homelessness unspecified
CPT/HCPCS: 71045; 93005

== ENCOUNTER 2025-05-14 22:21 | Inpatient (IN) | payer MEDICAID ==
[~2025-05-14] VITALS: Ht 162.6 cm; Wt 98.1 kg
[2025-05-14 22:49] LABS: Hematocrit 46.4 % (36.0-46.0); Hemoglobin 15.2 g/dL (12.2-16.2); Mean Corpuscular Hemoglobin 29.5 pg (28.0-32.0); Mean Corpuscular Volume 89.8 fL (80.0-100.0); Nucleated Red Blood Cells % 0.2 %
[2025-05-14 23:04] LABS: Alanine Aminotransferase 28 U/L (7-40); Albumin 4.2 g/dL (3.2-4.8); Alkaline Phosphatase 83 U/L (46-116); Anion Gap 7 (5-15); BUN/Creatinine Ratio 10.7 (10.0-20.0); Blood Urea Nitrogen 13 mg/dL (9-23); Calcium 9.6 mg/dL (8.7-10.4); Carbon Dioxide 27 mmol/L (20-31); Chloride 107 mmol/L (98-107); Potassium 3.9 mmol/L (3.5-5.1); Sodium 141 mmol/L (136-145); Total Protein 7.3 g/dL (5.7-8.2)
[2025-05-14 23:07] LABS: Bilirubin, Total 0.2 mg/dL (0.2-1.0); Glucose 227 mg/dL (74-106)
--- NOTE | 2025-05-14 23:22 | ED.PDOC ---
History of Present Illness HPI Comments 59-year-old female who came to ER for chest pains. Patient as history of hypertension, diabetes, AFib, chronic kidney failure, status post pacemaker insertion 2 weeks ago. Patient states that ever since she had the pacemaker insert then she has been having intermittent episodes of chest pains. She has not seen her project control manager regarding this issue yet. Two hours ago, patient states she felt her pacemaker fired 5 times. Noted also swelling at the pacemaker insertion site this morning. Currently feels weak dizzy and lightheaded REVIEW OF SYSTEMS: General: No fever, no chills, or fatigue HEENT: No sore throat, no earache, no congestion, no neck pain. Cardiac: (+) chest pain. No palpitations. Lungs: No shortness of breath, no cough. GI: No nausea, no vomiting, no diarrhea, no constipation, no abdominal pain : No dysuria, frequency, or urgency. No hematuria. Musculoskeletal: No joint pain , no joint swelling, no extremity edema. Skin: No rash, no itching. Neuro: No headache, no dizziness, no weakness EXAM: General: Awake, alert and oriented. No acute distress. Skin: Skin in warm, dry and intact. Appropriate color for ethnicity. HEENT: The head is normocephalic and atraumatic. Conjunctivae are clear without exudates or hemorrhage. Sclera is non-icteric. EOM are intact. No signs of nystagmus. Eyelids are normal in appearance without swelling or lesions. Oral mucosa is pink and moist Neck: The neck is supple with normal range of motion. No JVD. Chest: Fluctuance over pacemaker site. [place] still in place. Mild surrounding erythema over the incision. Cardiac: Heart rate and rhythm are normal. No murmurs, gallops, or rubs are auscultated. Fluctuance over pacemaker site. [place] still in place. Mild erythema over the incision. Respiratory: No signs of respiratory distress. Lung sounds are clear in all lobes bilaterally without rales, rhonchi, or wheezes. Abdominal: Abdomen is soft, non-tender without distention. Bowel sounds are present and normoactive in all four quadrants. Extremities: Upper and lower extremities are atraumatic in appearance without deformity or edema. Neurological: The patient is awake, alert and oriented to person, place, and time with normal speech. Speech is clear. There is no facial asymmetry. Psychiatric: Appropriate mood and affect. Good judgement and insight Chief Complaint: Chest Pain Time Seen by MD: 23:22 Primary Care Provider: [facility] Reviewed Notes: Nurses Notes Allergies: Coded Allergies: Loperamide (Verified Allergy, Severe, 08/13/23) Nystatin (Verified Allergy, Severe, 08/13/23) Penicillins (Verified Allergy, Severe, 08/13/23) Diphenhydramine (Verified Allergy, Unknown, 09/23/24) Home Meds Active Scripts Cholecalciferol (VITAMIN D-3) 2,000 Unit Tab, 2000 UNIT PO DAILY, #30 TAB Prov:JENNYFER MCDANIEL MD 01/11/25 Hydrocodone-Acetaminophen (Hydrocodone Bitartrate/AC 5-325 mg) 1 Tab Tab, 1 TAB PO Q6HP PRN, #30 TAB Prov:JENNYFER MCDANIEL MD 01/11/25 Cyclobenzaprine HCl (Cyclobenzaprine Hydrochlo) 10 Mg Tab, 10 MG PO TID, #30 TAB Prov:JENNYFER MCDANIEL MD 01/11/25 Amiodarone HCl (Amiodarone HCl) 200 Mg Tab, 100 MG PO BID for 30 Days, #30 TAB please hold if heart rate remains below 50 / min Prov:LISA OAKES RESIDENT 12/30/24 Reported Medications Furosemide (Lasix) 40 Mg Tab, 40 MG PO DAILY, TAB 04/17/25 Lisinopril (Lisinopril) 2.5 Mg Tab, 2.5 MG PO DAILY for 30 Days, MG 04/17/25 Potassium Chloride (POTASSIUM CHLORIDE CR) 10 Meq Tb, 1 TAB PO DAILY, #30 TAB 5 Refills 04/17/25 Acetaminophen (Acetaminophen) 325 Mg Tab, 500 MG PO Q8HPRN PRN for MILD PAIN for 30 Days, MG 0 Refills 04/17/25 Pvgpytvc-Vnfskkybutma-Qswlhthj (Triumeq 600-50-300 mg) 1 Tab Tab, 1 TAB PO DAILY, TAB 04/17/25 Dapagliflozin Propanediol (Farxiga) 10 Mg Tab, 5 MG PO DAILY, TAB 04/17/25 Duloxetine Hcl (Cymbalta) 60 Mg Cap, 1 CAP PO BID, #90 CAP 3 Refills 04/17/25 Insulin Glargine (Basaglar Kwikpen) 100 Unit/Ml Inj, 100 UNITS SC BID for 30 Days, #60 08/18/24 Insulin Lispro (Insulin Lispro Kwikpen) 100 Unit/Ml Inj, 10 UNITS SC DAILY for 100 Days, #15 08/18/24 Cetirizine HCl (Cetirizine Hydrochloride) 10 Mg Tab, 1 TAB PO DAILY for 90 Days, #90 08/18/24 Dapagliflozin Propanediol (Dapagliflozin Propanediol) 5 Mg Tab, 1 TAB PO DAILY for 100 Days, #100 08/18/24 Ferrous Sulfate (Ferosul) 325 Mg Tab, 1 TAB PO DAILY for anemia 06/08/24 Sitagliptin Phosphate (Januvia) 100 Mg Tab, 1 DAILY for 90 Days, #90 06/08/24 Cyclobenzaprine HCl (Cyclobenzaprine Hydrochlo) 10 Mg Tab, 1 TAB PO BID PRN for PAIN FOR MUSCLE SPASMS for 30 Days, #15 08/13/23 Famotidine (Famotidine) 20 Mg Tab, 1 TAB PO BID PRN for ACID REFLUX AND ABDOMINAL PAIN for 90 Days, #180 08/13/23 Hydrocodone-Acetaminophen (Hydrocodone/Acetaminophen 5-325 mg) 1 Tab Tab, 2 TAB PO BID 08/13/23 Pregabalin (Pregabalin) 200 Mg Cap, 1 CAP PO TID for 30 Days, #90 08/13/23 Apixaban Base (ELIQUIS) 5 Mg Tab, 1 TAB PO BID for 45 Days, #90 08/13/23 Aspirin (Aspirin) 81 Mg Chw, 1 TAB PO DAILY for 90 Days, #90 08/13/23 Atorvastatin Calcium (ATORVASTATIN CALCIUM) 40 Mg Tab, 1 TAB PO DAILY for 90 Days, #90 08/13/23 Information Source: Patient Mode of Arrival: EMS Past Medical History PAST MEDICAL HISTORY: AFIB, CHF, CKF, CVA, DM, HTN, Seizures Surgical History: Cholecystectomy, Hernia Repair, Pacemaker, Thyroidectomy HOME ENERGY CONSULTANT SUPERVISOR History: No Pertinent HOME ENERGY CONSULTANT SUPERVISOR History Family History Family History: Reviewed,noncontributory to illness Social History Smoker: Cigarettes, Less Than 1 Pack/Day Alcohol: Denies ETOH Use Drugs: Denies Drug Use Lives In: Assisted Care Was a procedure done? Was a procedure done?: No EKG EKG : Pulse Rate (adult): 60 Cardiac Rhythm: NSR Differential Dx Considerations may include: Anemia, electrolyte imbalance, chest pain, pacemaker malfunction X-Ray, Labs, Meds, VS Vital Signs Date Time Temp Pulse Resp B/P (MAP) Pulse Ox O2 Delivery O2 Flow Rate FiO2 05/15/25 03:33 97.7 62 19 145/77 (99) 97 97.7 05/15/25 03:33 62 20 97 Room Air 05/15/25 01:43 63 05/15/25 00:59 98.6 64 20 142/64 (90) 99 98.6 05/15/25 00:07 60 05/15/25 00:02 60 05/14/25 23:25 62 05/14/25 22:28 98.1 64 18 164/70 98 98.1 Lab Test 05/14/25 23:54 05/14/25 23:26 05/14/25 22:36 Range/Units Troponin I High Sensitivity 5 5 </=34 ng/L Urine Color Light-yellow Yellow Urine Clarity Clear Clear Urine pH 5.5 5.0-9.0 Urine Specific [place] 1.025 1.001-1.035 Urine Protein Trace H Negative Urine Ketones Negative Negative Urine Blood Negative Negative /uL Urine Nitrite Negative Negative Urine Bilirubin Negative Negative Urine Urobilinogen Normal Negative mg/dL Urine Leukocyte Esterase Trace Negative /uL Urine RBC 2 0 - 4 /hpf Urine Microscopic WBC 6 H 0-5 /HPF Urine Squamous Epithelial Cells Few <5 /hpf Urine Bacteria None seen None Seen /hpf Urine Glucose 4+ H Normal mg/dL White Blood Count 7.1 4.4-10.8 10^3/uL Red Blood Count 5.17 4.0-5.20 10^6/uL Hemoglobin 15.2 12.2-16.2 g/dL Hematocrit 46.4 H 36.0-46.0 % Mean Corpuscular Volume 89.8 80.0-100.0 fL Mean Corpuscular Hemoglobin 29.5 28.0-32.0 pg Mean Corpuscular Hemoglobin Concent 32.8 32.0-36.0 g/dL Red Cell Distribution Width 16.1 H 11.8-14.3 % Platelet Count 154 140-450 10^3/uL Mean Platelet Volume 9.8 6.9-10.8 fL Neutrophils (%) (Auto) 66.4 37.0-80.0 % Lymphocytes (%) (Auto) 19.3 10.0-50.0 % Monocytes (%) (Auto) 8.0 0.0-12.0 % Eosinophils (%) (Auto) 3.4 0.0-7.0 % Basophils (%) (Auto) 2.9 H 0.0-2.0 % Neutrophils # (Auto) 4.7 1.6-8.6 10 ^3/uL Lymphocytes # (Auto) 1.4 0.4-5.4 10 ^3/uL Monocytes # (Auto) 0.6 0-1.3 10 ^3/uL Eosinophils # (Auto) 0.2 0-0.8 10 ^3/uL Basophils # (Auto) 0.2 0-0.2 10 ^3/uL Nucleated Red Blood Cells 0.2 % Sodium Level 141 136-145 mmol/L Potassium Level 3.9 3.5-5.1 mmol/L Chloride Level 107 98-107 mmol/L Carbon Dioxide Level 27 20-31 mmol/L Anion Gap 7 5-15 Blood Urea Nitrogen 13 9-23 mg/dL Creatinine 1.22 H 0.550-1.02 mg/dL Glomerular Filtration Rate Calc 51 >90 mL/min BUN/Creatinine Ratio 10.7 10.0-20.0 Serum Glucose 227 H 74-106 mg/dL Calcium Level 9.6 8.7-10.4 mg/dL Total Bilirubin 0.2 0.2-1.0 mg/dL Aspartate Amino Transferase (AST) 30 13-40 U/L Alanine Aminotransferase (ALT) 28 7-40 U/L Alkaline Phosphatase 83 46-116 U/L B-Type Natriuretic Peptide 74.00 0-100 pg/mL Total Protein 7.3 5.7-8.2 g/dL Albumin 4.2 3.2-4.8 g/dL Current Medications Medications (Trade) Dose Ordered Sig/Uyen Route Start Time Stop Time Status Last Admin Acetaminophen/ Hydrocodone Bitart ([place] 5/325MG Tab) 1 tab Q4HP PRN PO 05/15/25 03:30 05/15/25 21:46 CHEST RADIOGRAPH REASON FOR EXAM: CHEST PAIN COMPARISON: XY CHEST XRAY 1 VIEW on DOS: 04/22/25, XY CHEST PORTABLE on DOS: 04/17/25, XY CHEST PORTABLE on DOS: 01/24/25, XY CHEST XRAY 1 VIEW on DOS: 01/09/25, CT CT ANGIO CHEST CONTRAST on DOS: 01/02/25 TECHNIQUE: One view of the chest is provided FINDINGS: The cardiomediastinal silhouette is stable. There is aortic atherosclerosis. There is a new 2 lead pacer projecting over the left chest. There is no pneumothorax. There is no definite airspace disease. There is diffuse interstitial prominence, likely chronic changes. There is no significant pleural effusion. No acute osseous abnormality is identified. IMPRESSION: New cardiac pacer. No pneumothorax. No definite acute cardiopulmonary process. Time of 1ST Reevaluation: 23:17 Reevaluation 1ST: Unchanged Patient Education/Counseling: Need For Follow Up Family Education/Counseling: No Family Present SEPSIS Sepsis Screen Date sepsis recognized/suspect: May 14, 2025 Time Sepsis recognized/suspect: 2224 Recent Procedure: No On Antibiotic Therapy: No Respiratory Rate >20: No Heart Rate >90: No Temp<36 C (96.8 F) or >38.3 C: No SBP <90 or MAP <65 mmHG: No New Acute Mental Status Change: No Is the patient on CPAP, BIPAP,: No Physician Orders Chest Portable (05/14/25 23:19) Electrocardigram (05/14/25 22:24) Electrocardigram (05/14/25 23:24) Chest Ultrasound (05/14/25 23:15) Consistent Carb(Ccho)Diabetes (05/15/25 Breakfast) Atorvastatin (Lipitor) (05/15/25 22:00) Famotidine Injection (Pepcid Injection) (05/15/25 10:00) Glucose Blood (Accu-Chek Comfort Curve T (05/15/25 07:00) Insulin R (Human) (Insulin R) (05/15/25 22:00) Insulin R (Human) (Insulin R) (05/15/25 07:00) Dextrose 50% Syringe (05/15/25 03:30) Allergies (05/15/25 03:27) Code Status (05/15/25 03:27) Sodium Chloride Lock (Saline Lock Ns) (05/15/25 06:00) Oxygen Per Hour (05/15/25 03:27) Hydrocodone-Acet 5/325mg Tab ([place] 5/32 (05/15/25 03:30) Ondansetron Hcl (Zofran) (05/15/25 03:30) Docusate Sodium Capsule (Colace Capsule) (05/15/25 03:30) Complete Blood Count (05/16/25 04:00) Comprehensive Metabolic Panel (05/16/25 04:00) Condition: Serious (05/15/25 03:27) Acetaminophen Tablet (Tylenol Tablet) (05/15/25 03:30) Bedrest With Bathroom Privileg (05/15/25 03:27) Maintain Bed Rest (05/15/25 03:27) Sequential Compression Device (05/15/25 ) Vital Signs Date Time Temp Pulse Resp B/P (MAP) Pulse Ox O2 Delivery O2 Flow Rate FiO2 05/15/25 03:33 97.7 62 19 145/77 (99) 97 97.7 05/15/25 03:33 62 20 97 Room Air 05/15/25 01:43 63 05/15/25 00:59 98.6 64 20 142/64 (90) 99 98.6 05/15/25 00:07 60 05/15/25 00:02 60 05/14/25 23:25 62 05/14/25 22:28 98.1 64 18 164/70 98 98.1 Laboratory Tests Test 05/14/25 22:36 White Blood Count 7.1 10^3/uL (4.4-10.8) Departure 1 Departure Time of Disposition: 02:18 Impression: Primary Impression: Pacemaker complications Disposition: ADMITTED INPATIENT Condition: Stable Comments [age] female presents to the emergency department with swelling over her pacemaker site, multiple shocks today. Patient reports she had a pacemaker placed here by Dr. Chaves 2-1/2 weeks ago. Ultrasound concerning for possible abscess over the pacemaker site. Patient admitted to hospitalist service for further treatment, evaluation and monitoring. Critical Care Note Critical Care Time?: No Stability Stability form required: No Heart Score Heart Score: Heart Score Response (Comments) Value History N/A 0 EKG N/A 0 Age N/A 0 Risk Factors N/A 0 Troponin N/A 0 Total 0 I personally scribed for DESIRAE WAYNE MD ([email or web address]) on 05/14/25 at 23:22. Electronically submitted by Adan Arguello ([email or web address]). I personally scribed for DESIRAE WAYNE MD ([email or web address]) on 05/15/25 at 00:07. Electronically submitted by Adan Arguello ([email or web address]). I personally scribed for DESIRAE WAYNE MD ([email or web address]) on 05/15/25 at 01:22. Electronically submitted by Adan Arguello ([email or web address]). DESIRAE WAYNE MD May 14, 2025 23:22
--- NOTE | 2025-05-14 23:56 | DVH ---
CHEST RADIOGRAPH REASON FOR EXAM: CHEST PAIN COMPARISON: XY CHEST XRAY 1 VIEW on DOS: 04/22/25, XY CHEST PORTABLE on DOS: 04/17/25, XY CHEST PORTABLE on DOS: 01/24/25, XY CHEST XRAY 1 VIEW on DOS: 01/09/25, CT CT ANGIO CHEST CONTRAST on DOS: 01/02/25 TECHNIQUE: One view of the chest is provided FINDINGS: The cardiomediastinal silhouette is stable. There is aortic atherosclerosis. There is a new 2 lead pacer projecting over the left chest. There is no pneumothorax. There is no definite airspace disease. There is diffuse interstitial prominence, likely chronic changes. There is no significan t pleural effusion. No acute osseous abnormality is identified. IMPRESSION: New cardiac pacer. No pneumothorax. No definite acute cardiopulmonary process.
--- NOTE | 2025-05-15 01:36 | DVH ---
Left Chest Sonogram Date: 05/14/2025 11:26 PM CLINICAL HISTORY: Ultrasound pacemaker site for abscess FINDINGS/IMPRESSION: Multiple images were obtained of the left chest wall. There is a complex region seen in the area of patient's palpable lump measuring 3.3 x 4.4 x 2.1 cm, an abscess cannot be excluded. Close clinical and sonographic follow-up is suggested.
[2025-05-15 01:52] LABS: Urine Protein, UAD TRACE (Negative)
[2025-05-15] MEDS ORDERED: ACETAMINOPHEN 325 MG TAB PO PRN (03:30)
[2025-05-15] MEDS ORDERED: ONDANSETRON HCL 4 MG/2 ML VIAL IV PRN (03:30)
[2025-05-15] MEDS ORDERED: DOCUSATE SOD 100 MG CAP PO PRN (03:30)
[2025-05-15] MEDS ORDERED: DEXTROSE (50%) 50ML SYRG IV PRN (03:30)
--- NOTE | 2025-05-15 05:11 | DVHHP2 ---
History of Present Illness Reason for Visit: Acute chest pain History of Present Illness The patient is a 59-year-old female with multiple past medical history including CHF, AFib, CVA, diabetes mellitus, and hypertension who presented to [facility] ED with complaint of chest pain. Patient reports had pacemaker insertion 2 weeks ago and has been having intermittent episode of chest pain since then. Patient states that she felt her pacemaker fired 5 times today. 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 Patient was seen and evaluated in the ED, laboratory data shows WBC 7.1, platelets 154, sodium 141, potassium 3.9, BUN 13, creatinine 1.22, GFR 51, glucose 227, calcium 9.6, t roponin 5, BNP 74.00, blood pressure 142/64, heart rate 64, temperature 98.6 F, O2 saturation 99% on room air. Chest x-ray revealing new cardiac pacer, no pneumothorax, no definite acute cardiopulmonary process. Please see medication orders section in the computer. On my assessment, patient denied chest pain at this moment, no headache, dizziness, diaphoresis, shortness of breaths, no diarrhea, nausea, vomiting, fever, no chills. Patient was admitted for further evaluation and medical management. Past Medical History AFIB, CHF, CKF, CVA, DM, HTN, Seizures Past Surgical History Cholecystectomy, Hernia Repair, Pacemaker, Thyroidectomy Family History Reviewed, noncontributory to the management of this case. Past Social History The patient lives at assisted care living, smokes cigarettes less than 1 pack per day, denies alcohol or illicit drugs abuse. Review of Systems Constitutional: Yes: Weakness; No: Fever, Chills, Sweats, Malaise, Other Eyes: No: Pain, Vision change, Conjunctivae inflammation, Eyelid inflammation, Other, Redness ENT: No: Ear pain, Ear discharge, Nose pain, Nose discharge, Nose congestion, Mouth pain, Mouth swelling, Throat pain, Throat swelling, Other Respiratory: No: Cough, Dry, Shortness of breath, SOB with excertion, Wheezing, Hemoptysis, Pleuritic Pain, Sputum, Wheezing, Other Cardiovascular: Chest Pain, Other (Pacemaker); No: Palpitations, Orthopnea, Paroxysmal Noc. Dyspnea, Edema, Lt Headedness Gastrointestinal: No: Nausea, Vomiting, Abdominal Pain, Diarrhea, Constipation, Melena, Hematochezia, Other Genitourinary: No Dysuria, No Frequency, No Incontinence, No Hematuria, No Re tention, No Other Musculoskeletal: No: other, neck pain, shoulder pain, arm pain, back pain, hand pain, leg pain, foot pain Skin: No: Rash, Lesions, Jaundice, Bruising, Other Neurological: No: Weakness, Numbness, Incoordination, Change in speech, Confusion, Seizures, Other Allergies: Coded Allergies: Loperamide (Verified Allergy, Severe, 08/13/23) Nystatin (Verified Allergy, Severe, 08/13/23) Penicillins (Verified Allergy, Severe, 08/13/23) Diphenhydramine (Verified Allergy, Unknown, 09/23/24) Medications Current Medications Medications Dose Ordered Sig/Uyen Route Start Time Stop Time Status Last Admin Dose Admin Atorvastatin Calcium 40 mg HS PO 05/15/25 22:00 Carvedilol 3.125 mg Q12HR PO 05/15/25 10:00 Famotidine 20 mg DAILY IV 05/15/25 10:00 Diagnostic Test (Pha) 1 strip ACHS 05/15/25 07:00 Insulin Human Regular HS SC 05/15/25 22:00 Insulin Human Regular AC SC 05/15/25 07:00 Dextrose 50 ml UD PRN IV 05/15/25 03:30 Sodium Chloride 10 ml Q8HR IV 05/15/25 06:00 Acetaminophen/ Hydrocodone Bitart 1 tab Q4HP PRN PO 05/15/25 03:30 Ondansetron HCl 4 mg Q4HP PRN IV 05/15/25 03:30 Docusate Sodium 100 mg BIDPRN PRN PO 05/15/25 03:30 Acetaminophen 650 mg Q6HP PRN PO 05/15/25 03:30 Apixaban 5 mg BID PO 05/15/25 10:00 Exam Vital Signs Vital Signs Date Time Temp Pulse Resp B/P (MAP) Pulse Ox O2 Delivery O2 Flow Rate FiO2 05/15/25 03:33 97.7 62 19 145/77 (99) 97 97.7 05/15/25 03:33 Room Air General Appearance: Alert, Oriented X3, Cooperative, No acute distress HEENT: Atraumatic, PERRLA, EOMI, Mucous membr. moist/pink Respiratory: Clear to auscultation, Normal air movement Cardiovascular: Regular rate, Normal S1, Normal S2, No murmurs Abdominal: Normal bowel sounds, Soft, No tenderness, No hepatospenomegaly, No masses Extremities: No clubbing, No cyanosis, No edema, Normal pulses, No tenderness/swelling Skin: No rashes, No significant lesion Neuro: Normal speech, Normal tone, Sensation intact, Cranial nerves 3-12 NL, Reflexes 2+, Other (Generalized weakness) Psych/Mental Status: Mental status NL, Mood NL Labs/Xrays Labs Test 05/14/25 23:54 05/14/25 23:26 05/14/25 22:36 Range/Units Troponin I High Sensitivity 5 </=34 ng/L Urine Color Light-yellow Yellow Urine Clarity Clear Clear Urine pH 5.5 5.0-9.0 Urine Specific [place] 1.025 1.001-1.035 Urine Protein Trace H Negative Urine Ketones Negative Negative Urine Blood Negative Negative /uL Urine Nitrite Negative Negative Urine Bilirubin Negative Negative Urine Urobilinogen Normal Negative mg/dL Urine Leukocyte Esterase Trace Negative /uL Urine RBC 2 0 - 4 /hpf Urine Microscopic WBC 6 H 0-5 /HPF Urine Squamous Epithelial Cells Few <5 /hpf Urine Bacteria None seen None Seen /hpf Urine Glucose 4+ H Normal mg/dL White Blood Count 7.1 4.4-10.8 10^3/uL Red Blood Count 5.17 4.0-5.20 10^6/uL Hemoglobin 15.2 12.2-16.2 g/dL Hematocrit 46.4 H 36.0-46.0 % Mean Corpuscular Volume 89.8 80.0-100.0 fL Mean Corpuscular Hemoglobin 29.5 28.0-32.0 pg Mean Corpuscular Hemoglobin Concent 32.8 32.0-36.0 g/dL Red Cell Distribution Width 16.1 H 11.8-14.3 % Platelet Count 154 140-450 10^3/uL Mean Platelet Volume 9.8 6.9-10.8 fL Neutrophils (%) (Auto) 66.4 37.0-80.0 % Lymphocytes (%) (Auto) 19.3 10.0-50.0 % Monocytes (%) (Auto) 8.0 0.0-12.0 % Eosinophils (%) (Auto) 3.4 0.0-7.0 % Basophils (%) (Auto) 2.9 H 0.0-2.0 % Neutrophils # (Auto) 4.7 1.6-8.6 10 ^3/uL Lymphocytes # (Auto) 1.4 0.4-5.4 10 ^3/uL Monocytes # (Auto) 0.6 0-1.3 10 ^3/uL Eosinophils # (Auto) 0.2 0-0.8 10 ^3/uL Basophils # (Auto) 0.2 0-0.2 10 ^3/uL Nucleated Red Blood Cells 0.2 % Sodium Level 141 136-145 mmol/L Potassium Level 3.9 3.5-5.1 mmol/L Chloride Level 107 98-107 mmol/L Carbon Dioxide Level 27 20-31 mmol/L Anion Gap 7 5-15 Blood Urea Nitrogen 13 9-23 mg/dL Creatinine 1.22 H 0.550-1.02 mg/dL Glomerular Filtration Rate Calc 51 >90 mL/min BUN/Creatinine Ratio 10.7 10.0-20.0 Serum Glucose 227 H 74-106 mg/dL Calcium Level 9.6 8.7-10.4 mg/dL Total Bilirubin 0.2 0.2-1.0 mg/dL Aspartate Amino Transferase (AST) 30 13-40 U/L Alanine Aminotransferase (ALT) 28 7-40 U/L Alkaline Phosphatase 83 46-116 U/L B-Type Natriuretic Peptide 74.00 0-100 pg/mL Total Protein 7.3 5.7-8.2 g/dL Albumin 4.2 3.2-4.8 g/dL [id number] UNIT: [id number] : 1965 LOC: ER ROOM / BED: / AGE / SEX: 59 / F ADM STATUS: REG ER SERVICE 2228 ORDERING PHYSICIAN: DESIRAE WAYNE MD PROCEDURE(s): CXRP - CHEST PORTABLE REASON: CHEST PAIN ORDER NUMBER(s): [id number], ACCESSION NUMBER(s): [id number] CHEST RADIOGRAPH REASON FOR EXAM: CHEST PAIN COMPARISON: XY CHEST XRAY 1 VIEW on DOS: 04/22/25, XY CHEST PORTABLE on DOS: 04/17/25, XY CHEST PORTABLE on DOS: 01/24/25, XY CHEST XRAY 1 VIEW on DOS: 01/09/25, CT CT ANGIO CHEST CONTRAST on DOS: 01/02/25 TECHNIQUE: One view of the chest is provided FINDINGS: The cardiomediastinal silhouette is stable. There is aortic atherosclerosis.There is a new 2 lead pacer projecting over the left chest. There is no pneumothorax. There is no definite airspace disease. There is diffuse interstitial prominence, likely chronic changes. There is no significant pleural effusion. No acute osseous abnormality is identified. IMPRESSION: New cardiac pacer. No pneumothorax. No definite acute cardiopulmonary process. SEPSIS Sepsis Screen Date sepsis recognized/suspect: May 15, 2025 Time Sepsis recognized/suspect: 332 Recent Procedure: No On Antibiotic Therapy: No Respiratory Rate >20: No Heart Rate >90: No Temp<36 C (96.8 F) or >38.3 C: No SBP <90 or MAP <65 mmHG: No New Acute Mental Status Change: No Is the patient on CPAP, BIPAP,: No Physician Orders Chest Portable (05/14/25 23:19) Electrocardigram (05/14/25 22:24) Electrocardigram (05/14/25 23:24) Electrocardigram (05/15/25 01:24) Chest Ultrasound (05/14/25 23:15) Ceftriaxone 1gm/50ml (Rocephin) (05/15/25 02:30) Complete Blood Count (05/15/25 04:00) Comprehensive Metabolic Panel (05/15/25 04:00) Consistent Carb(Ccho)Diabetes (05/15/25 Breakfast) Atorvastatin (Lipitor) (05/15/25 22:00) Carvedilol Tablet (Coreg Tablet) (05/15/25 10:00) Famotidine Injection (Pepcid Injection) (05/15/25 10:00) Glucose Blood (Accu-Chek Comfort Curve T (05/15/25 07:00) Insulin R (Human) (Insulin R) (05/15/25 22:00) Insulin R (Human) (Insulin R) (05/15/25 07:00) Dextrose 50% Syringe (05/15/25 03:30) Allergies (05/15/25 03:27) Code Status (05/15/25 03:27) Sodium Chloride Lock (Saline Lock Ns) (05/15/25 06:00) Oxygen Per Hour (05/15/25 03:27) Hydrocodone-Acet 5/325mg Tab ([place] 5/32 (05/15/25 03:30) Ondansetron Hcl (Zofran) (05/15/25 03:30) Docusate Sodium Capsule (Colace Capsule) (05/15/25 03:30) Complete Blood Count (05/16/25 04:00) Comprehensive Metabolic Panel (05/16/25 04:00) Condition: Serious (05/15/25 03:27) Acetaminophen Tablet (Tylenol Tablet) (05/15/25 03:30) Bedrest With Bathroom Privileg (05/15/25 03:27) Maintain Bed Rest (05/15/25 03:27) Sequential Compression Device (05/15/25 ) Apixaban (Eliquis) (05/15/25 10:00) Admit (05/15/25 05:10) Nitroglycerin Sublingual (Ntrostat Subli (05/15/25 05:15) Morphine Sulfate Injection (05/15/25 05:15) Stat Ekg For Chest Pain (05/15/25 05:10) Notify Md Of Changes From Base (05/15/25 05:10) Bulk Clerk For 24 Hours (05/15/25 05:10) Emergency Dysrhythmia Protocol (05/15/25 05:10) Vital Signs Date Time Temp Pulse Resp B/P (MAP) Pulse Ox O2 Delivery O2 Flow Rate FiO2 05/15/25 03:33 97.7 62 19 145/77 (99) 97 97.7 05/15/25 03:33 62 20 97 Room Air 05/15/25 00:59 98.6 64 20 142/64 (90) 99 98.6 05/15/25 00:07 60 05/15/25 00:02 60 05/14/25 23:25 62 05/14/25 22:28 98.1 64 18 164/70 98 98.1 Laboratory Tests Test 05/14/25 22:36 White Blood Count 7.1 10^3/uL (4.4-10.8) Assessment/Plan Assessment/Plan Chest pain Pacemaker complications Generalized weakness Plan 1. Admit to telemetry unit 2. Breathing treatment 3. Pain control management 4. Management of fluids and electrolytes 5. Consultation for Cardiology 6. Diagnostic tests chest x-ray 7. DVT prophylaxis-on Eliquis 8. Repeat labs CBC, CMP in a.m. 9. Continue with current medical management 10. Treatment plan discussed with patient and RN. Patient verbalized understanding. Plan discussed with: Patient, Other (RN) My Orders Orders - NOVA HERNÁNDEZ DNP Procedure Category Date Status Time Complete Blood Count LAB 05/15/25 Logged 04:00 Comprehensive LAB 05/15/25 Logged Metabolic Panel 04:00 Consistent DIET 05/15/25 Transmitted Carb(Ccho)Diabetes Breakfast Atorvastatin (Lipitor) PHA 05/15/25 In Process 22:00 Carvedilol Tablet PHA 05/15/25 In Process (Coreg Tablet) 10:00 Famotidine Injection PHA 05/15/25 In Process (Pepcid Injection) 10:00 Glucose Blood PHA 05/15/25 In Process (Accu-Chek Comfort 07:00 Insulin R (Human) PHA 05/15/25 In Process (Insulin R) 22:00 Insulin R (Human) PHA 05/15/25 In Process (Insulin R) 07:00 Dextrose 50% Syringe PHA 05/15/25 In Process 03:30 Allergies SANJU 05/15/25 In Process 03:27 Code Status CODE 05/15/25 Transmitted 03:27 Sodium Chloride Lock PHA 05/15/25 In Process (Saline Lock Ns) 06:00 Oxygen Per Hour RT 05/15/25 Transmitted 03:27 Hydrocodone-Acet PHA 05/15/25 In Process 5/325mg Tab ([place] 03:30 Ondansetron Hcl PHA 05/15/25 In Process (Zofran) 03:30 Docusate Sodium PHA 05/15/25 In Process Capsule (Colace 03:30 Complete Blood Count LAB 05/16/25 Verified 04:00 Comprehensive LAB 05/16/25 Verified Metabolic Panel 04:00 Condition: Serious SANJU 05/15/25 In Process 03:27 Acetaminophen Tablet PHA 05/15/25 In Process (Tylenol Tablet) 03:30 Bedrest With Bathroom SANJU 05/15/25 In Process Privileg 03:27 Maintain Bed Rest SANJU 05/15/25 In Process 03:27 Sequential SANJU 05/15/25 In Process Compression Device Apixaban (Eliquis) PHA 05/15/25 In Process 10:00 Admit ADMIT 05/15/25 Verified 05:10 Nitroglycerin [facility] 05/15/25 Verified Sublingual (Ntrostat 05:15 Morphine Sulfate [facility] 05/15/25 Verified Injection 05:15 Stat Ekg For Chest [facility] 05/15/25 Verified Pain 05:10 Notify Md Of Changes [facility] 05/15/25 Verified From Base 05:10 Bulk Clerk For [facility] 05/15/25 Verified 24 Hours 05:10 Emergency Dysrhythmia [facility] 05/15/25 Verified Protocol 05:10 Problem List: (1) Chest pain (2) Pacemaker complications (3) Generalized weakness Date of Service: May 15, 2025 Billing Provider: NOVA HERNÁNDEZ DNP Common Visit Codes: [id number] INP/OBS CARE (HIGH) NOVA HERNÁNDEZ DNP May 15, 2025 05:11
[2025-05-15] MEDS ORDERED: NITROGLYCERIN 0.4 MG SL TAB SL PRN (05:15)
[2025-05-15] MEDS: SODIUM CHLOR 0.9% PF (SALINE LOCK) 10ML VIAL/SYR IV SCH (05:55)
[2025-05-15 06:01] LABS: Hematocrit 45.1 % (36.0-46.0); Hemoglobin 15.2 g/dL (12.2-16.2); Mean Corpuscular Hemoglobin 30.1 pg (28.0-32.0); Mean Corpuscular Volume 89.3 fL (80.0-100.0); Nucleated Red Blood Cells % 0.1 %
[2025-05-15 06:19] LABS: Alanine Aminotransferase 29 U/L (7-40); Albumin 4.3 g/dL (3.2-4.8); Alkaline Phosphatase 83 U/L (46-116); Anion Gap 9 (5-15); BUN/Creatinine Ratio 15.5 (10.0-20.0); Blood Urea Nitrogen 16 mg/dL (9-23); Calcium 9.6 mg/dL (8.7-10.4); Carbon Dioxide 28 mmol/L (20-31); Chloride 105 mmol/L (98-107); Glucose 151 mg/dL (74-106); Potassium 3.8 mmol/L (3.5-5.1); Sodium 142 mmol/L (136-145); Total Protein 7.5 g/dL (5.7-8.2)
[2025-05-15 06:20] LABS: Bilirubin, Total 0.3 mg/dL (0.2-1.0)
[2025-05-15] MEDS: ACCU-CHEK COMFORT CURVE STRIP VI SCH (07:04)
[2025-05-15] MEDS: InsuLIN REG 1unit/0.01ml Soln (100units/ml) SC SCH ×2 (07:16→21:33)
[2025-05-15 07:27] VITALS: PULSE 61; RESP 10; O2SAT 93
--- NOTE | 2025-05-15 07:48 | ECG ---
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
[2025-05-15 07:56] LABS: INR 0.97 (0.9-1.15); Partial Thromboplastin Time 25.6 SEC (24.5-34.5); Prothrombin Time 10.3 sec (9.3-11.8)
[2025-05-15 07:57] LABS: Cholesterol 196 mg/dL (< 200); HDL Cholesterol 52 mg/dL (40-59); Triglycerides 329 mg/dL (< 150)
[2025-05-15 09:06] LABS: Magnesium 2.1 mg/dL (1.6-2.6)
[2025-05-15] MEDS ORDERED: APIXABAN 5 MG TAB PO SCH (10:00)
[2025-05-15] MEDS: FAMOTIDINE (10MG/ML) 2ML VL IV SCH (10:54)
[2025-05-15] MEDS: CARVEDILOL 3.125 MG TAB PO SCH (10:55)
[2025-05-15] MEDS: HYDROcodone-ACET 5/325MG TAB PO PRN (10:56)
--- NOTE | 2025-05-15 11:47 | DVHINCON2 ---
Date Seen: May 15, 2025 Referring Physician BENJIE Ordaz Reason for Consultation Pacemaker complications History of Present Illness Patient is a 59-year-old female came to the hospital with a chief complaint of chest pain in the left upper chest at the site of pacemaker implantation about 2 weeks ago. Patient reported tenderness, sharp, nonradiating chest pain occurring at rest in the left upper side of the chest associated with increased swelling around the site of a pacemaker implantation. Patient denied any fever, chills, palpitations. Was hospitalized again about a week ago after fall for which he was in the hospital with 3-4 days and was just recently discharged. No other acute complaints Medical history: atrial fibrillation, diastolic congestive heart failure, CVA, insulin-dependent type 2 diabetes mellitus, CKD, seizures, HIV, peripheral neuropathy Surgical history: Hernia repair, cholecystectomy, CTS, pacemaker implantation 2 weeks ago Social history: Patient has a 25 pack year smoking history, denies alcohol or any other drug use Home medications: Amiodarone 200 mg daily, Eliquis 5 mg b.i.d., aspirin 81 mg, atorvastatin 40 mg, dapagliflozin 10 mg, insulin Lantus 50 units b.i.d., insulin lispro before meals, Lasix 40 mg daily, pregabalin 200 mg t.i.d., metoprolol 25 daily, Triumeq for HIV, duloxetine 60 mg, Abilify 5 mg Past Medical History As per HPI Past Surgical History As per HPI Family History: Cardiovascular disease G8 FATHER Diabetes mellitus G8 SISTER Suicide G8 BROTHER Family History Nonsignificant Social History As per HPI Allergies: Coded Allergies: Loperamide (Verified Allergy, Severe, 08/13/23) Nystatin (Verified Allergy, Severe, 08/13/23) Penicillins (Verified Allergy, Severe, 08/13/23) Diphenhydramine (Verified Allergy, Unknown, 09/23/24) Home Meds Active Scripts Cholecalciferol (VITAMIN D-3) 2,000 Unit Tab, 2000 UNIT PO DAILY, #30 TAB Prov:JENNYFER MCDANIEL MD 01/11/25 Hydrocodone-Acetaminophen (Hydrocodone Bitartrate/AC 5-325 mg) 1 Tab Tab, 1 TAB PO Q6HP PRN, #30 TAB Prov:JENNYFER MCDANIEL MD 01/11/25 Cyclobenzaprine HCl (Cyclobenzaprine Hydrochlo) 10 Mg Tab, 10 MG PO TID, #30 TAB Prov:JENNYFER MCDANIEL MD 01/11/25 Amiodarone HCl (Amiodarone HCl) 200 Mg Tab, 100 MG PO BID for 30 Days, #30 TAB please hold if heart rate remains below 50 / min Prov:LISA OAKES RESIDENT 12/30/24 Reported Medications Furosemide (Lasix) 40 Mg Tab, 40 MG PO DAILY, TAB 04/17/25 Lisinopril (Lisinopril) 2.5 Mg Tab, 2.5 MG PO DAILY for 30 Days, MG 04/17/25 Potassium Chloride (POTASSIUM CHLORIDE CR) 10 Meq Tb, 1 TAB PO DAILY, #30 TAB 5 Refills 04/17/25 Acetaminophen (Acetaminophen) 325 Mg Tab, 500 MG PO Q8HPRN PRN for MILD PAIN for 30 Days, MG 0 Refills 04/17/25 Fkvwysaa-Qcmaxwklltuv-Zqryagmr (Triumeq 600-50-300 mg) 1 Tab Tab, 1 TAB PO DAILY, TAB 04/17/25 Dapagliflozin Propanediol (Farxiga) 10 Mg Tab, 5 MG PO DAILY, TAB 04/17/25 Duloxetine Hcl (Cymbalta) 60 Mg Cap, 1 CAP PO BID, #90 CAP 3 Refills 04/17/25 Insulin Glargine (Basaglar Kwikpen) 100 Unit/Ml Inj, 100 UNITS SC BID for 30 Days, #60 08/18/24 Insulin Lispro (Insulin Lispro Kwikpen) 100 Unit/Ml Inj, 10 UNITS SC DAILY for 100 Days, #15 08/18/24 Cetirizine HCl (Cetirizine Hydrochloride) 10 Mg Tab, 1 TAB PO DAILY for 90 Days, #90 08/18/24 Dapagliflozin Propanediol (Dapagliflozin Propanediol) 5 Mg Tab, 1 TAB PO DAILY for 100 Days, #100 08/18/24 Ferrous Sulfate (Ferosul) 325 Mg Tab, 1 TAB PO DAILY for anemia 06/08/24 Sitagliptin Phosphate (Januvia) 100 Mg Tab, 1 DAILY for 90 Days, #90 06/08/24 Cyclobenzaprine HCl (Cyclobenzaprine Hydrochlo) 10 Mg Tab, 1 TAB PO BID PRN for PAIN FOR MUSCLE SPASMS for 30 Days, #15 08/13/23 Famotidine (Famotidine) 20 Mg Tab, 1 TAB PO BID PRN for ACID REFLUX AND ABDOMINAL PAIN for 90 Days, #180 08/13/23 Hydrocodone-Acetaminophen (Hydrocodone/Acetaminophen 5-325 mg) 1 Tab Tab, 2 TAB PO BID 08/13/23 Pregabalin (Pregabalin) 200 Mg Cap, 1 CAP PO TID for 30 Days, #90 08/13/23 Apixaban Base (ELIQUIS) 5 Mg Tab, 1 TAB PO BID for 45 Days, #90 08/13/23 Aspirin (Aspirin) 81 Mg Chw, 1 TAB PO DAILY for 90 Days, #90 08/13/23 Atorvastatin Calcium (ATORVASTATIN CALCIUM) 40 Mg Tab, 1 TAB PO DAILY for 90 Days, #90 08/13/23 Current Medications Current Medications Medications (Trade) Dose Ordered Sig/Uyen Route PRN Reason Start Time Stop Time Status Last Admin Atorvastatin Calcium (Lipitor) 40 mg HS PO 05/15/25 22:00 Carvedilol (Coreg Tablet) 3.125 mg Q12HR PO 05/15/25 10:00 05/15/25 11:26 DC 05/15/25 10:55 Famotidine (Pepcid Injection) 20 mg DAILY IV 05/15/25 10:00 05/15/25 10:54 Diagnostic Test (Pha) (Accu-Chek Comfort Curve T) 1 strip ACHS 05/15/25 07:00 05/15/25 07:04 Insulin Human Regular (InsuLIN R) HS SC 05/15/25 22:00 Insulin Human Regular (InsuLIN R) AC SC 05/15/25 07:00 05/15/25 07:16 Dextrose 50 ml UD PRN IV Blood Sugar LESS THAN 60 05/15/25 03:30 Sodium Chloride (Saline Lock Ns) 10 ml Q8HR IV 05/15/25 06:00 05/15/25 05:55 Acetaminophen/ Hydrocodone Bitart ([place] 5/325MG Tab) 1 tab Q4HP PRN PO MODERATE PAIN (4-6 PAIN SCALE) 05/15/25 03:30 05/15/25 10:56 Ondansetron HCl (Zofran) 4 mg Q4HP PRN IV NAUSEA / VOMITING 05/15/25 03:30 Docusate Sodium (Colace Capsule) 100 mg BIDPRN PRN PO FOR CONSTIPATION 05/15/25 03:30 Acetaminophen (Tylenol Tablet) 650 mg Q6HP PRN PO PAIN SCALE 1-3 OR TEMP>100.4 05/15/25 03:30 Apixaban (Eliquis) 5 mg BID PO 05/15/25 10:00 05/15/25 09:48 DC Nitroglycerin (Ntrostat Sublingual) 0.4 mg Q5MINP PRN SL FOR CHEST PAIN 05/15/25 05:15 Morphine Sulfate 2 mg Q30M PRN IV FOR CHEST PAIN 05/15/25 05:15 Enoxaparin Sodium (Lovenox) 90 mg Q12HR SC 05/15/25 10:00 Aspirin 81 mg DAILY PO 05/15/25 20:00 Metoprolol Succinate (Toprol Xl) 25 mg DAILY PO 05/16/25 10:00 UNV Lisinopril (Zestril Tablet) 2.5 mg DAILY PO 05/16/25 10:00 UNV Review of Systems Patient seen sitting comfortably in bed No shortness of breath on room air, no tachycardia or fever Reports pain 8 to 9/10 on intensity, sharp around the site of pacemaker implantation with tenderness to palpation Vital Signs Vital Signs Date Time Temp Pulse Resp B/P (MAP) Pulse Ox O2 Delivery O2 Flow Rate FiO2 05/15/25 10:55 67 132/74 05/15/25 06:50 98.3 14 95 98.3 05/15/25 03:33 Room Air Physical Exam Skin - Patients skin is warm and dry. Dora at the site of ppm implantation, fluctuant swelling without overlying erythema HEENT - normocephalic, atraumatic, moist mucous membranes, no scleral icterus, no conjunctival pallor. Neck - full ROM, no LAD, no JVD Pulmonary - B/L clear breath sounds without any wheezing or rales cardiovascular - regular S1,S2 heard, no added sounds or murmurs appreciable. peripheral pulses normal radial 2+, pedal 2+. GI - soft, nontender abdomen. no hepatospleenomegaly. Bowel sounds normoactive Neurological - Patient is A/O X 4 . Bilateral upper extremity strength 5/5, bilateral lower extremity strength 5/5, no facial droop, normal speech, no tremor, no sensory deficiets. Labs/Diagnostic Data Labs Test 05/15/25 05:22 05/14/25 23:54 05/14/25 23:26 05/14/25 22:36 Range/Units White Blood Count 7.8 4.4-10.8 10^3/uL Red Blood Count 5.05 4.0-5.20 10^6/uL Hemoglobin 15.2 12.2-16.2 g/dL Hematocrit 45.1 36.0-46.0 % Mean Corpuscular Volume 89.3 80.0-100.0 fL Mean Corpuscular Hemoglobin 30.1 28.0-32.0 pg Mean Corpuscular Hemoglobin Concent 33.7 32.0-36.0 g/dL Red Cell Distribution Width 16.1 H 11.8-14.3 % Platelet Count 173 140-450 10^3/uL Mean Platelet Volume 10.4 6.9-10.8 fL Neutrophils (%) (Auto) 65.3 37.0-80.0 % Lymphocytes (%) (Auto) 20.8 10.0-50.0 % Monocytes (%) (Auto) 8.8 0.0-12.0 % Eosinophils (%) (Auto) 4.1 0.0-7.0 % Basophils (%) (Auto) 1.0 0.0-2.0 % Neutrophils # (Auto) 5.1 1.6-8.6 10 ^3/uL Lymphocytes # (Auto) 1.6 0.4-5.4 10 ^3/uL Monocytes # (Auto) 0.7 0-1.3 10 ^3/uL Eosinophils # (Auto) 0.3 0-0.8 10 ^3/uL Basophils # (Auto) 0.1 0-0.2 10 ^3/uL Nucleated Red Blood Cells 0.1 % Prothrombin Time 10.3 9.3-11.8 sec Prothrombin Time INR 0.97 0.9-1.15 Activated Partial Thromboplast Time 25.6 24.5-34.5 SEC Sodium Level 142 136-145 mmol/L Potassium Level 3.8 3.5-5.1 mmol/L Chloride Level 105 98-107 mmol/L Carbon Dioxide Level 28 20-31 mmol/L Anion Gap 9 5-15 Blood Urea Nitrogen 16 9-23 mg/dL Creatinine 1.03 H 0.550-1.02 mg/dL Glomerular Filtration Rate Calc 62 >90 mL/min BUN/Creatinine Ratio 15.5 10.0-20.0 Serum Glucose 151 H 74-106 mg/dL Hemoglobin A1c 7.6 H <5.7 % A1C Calcium Level 9.6 8.7-10.4 mg/dL Magnesium Level 2.1 1.6-2.6 mg/dL Total Bilirubin 0.3 0.2-1.0 mg/dL Aspartate Amino Transferase (AST) 30 13-40 U/L Alanine Aminotransferase (ALT) 29 7-40 U/L Alkaline Phosphatase 83 46-116 U/L C-Reactive Protein High Sensitivity 0.61 <1.0 mg/dL Total Protein 7.5 5.7-8.2 g/dL Albumin 4.3 3.2-4.8 g/dL Triglycerides Level 329 H < 150 mg/dL Cholesterol Level 196 < 200 mg/dL LDL Cholesterol 113 H < 100 mg/dL HDL Cholesterol 52 40-59 mg/dL Vitamin D 25-Hydroxy 23.5 L 30.0-100 ng/mL Thyroid Stimulating Hormone (TSH) 2.91 0.55-4.78 uIU/mL Troponin I High Sensitivity 5 </=34 ng/L Urine Color Light-yellow Yellow Urine Clarity Clear Clear Urine pH 5.5 5.0-9.0 Urine Specific [place] 1.025 1.001-1.035 Urine Protein Trace H Negative Urine Ketones Negative Negative Urine Blood Negative Negative /uL Urine Nitrite Negative Negative Urine Bilirubin Negative Negative Urine Urobilinogen Normal Negative mg/dL Urine Leukocyte Esterase Trace Negative /uL Urine RBC 2 0 - 4 /hpf Urine Microscopic WBC 6 H 0-5 /HPF Urine Squamous Epithelial Cells Few <5 /hpf Urine Bacteria None seen None Seen /hpf Urine Glucose 4+ H Normal mg/dL B-Type Natriuretic Peptide 74.00 0-100 pg/mL Assessment Acute chest pain at pacemaker site implantation, noncompliance with antibiotics post ppm implantation Paroxysmal atrial fibrillation Congestive heart failure, diastolic, no exacerbation Plan/Recommendation - chest ultrasound showed palpable lump measuring 3.3 X4.4 X2.1 cm - started on antibiotics IV vancomycin - rate control with the metoprolol, anticoagulation with Lovenox, continue on Eliquis on discharge - patient could be discharged home on p.o. doxycycline and advised to follow up in the clinic with Dr. Chaves on Sunday next week Goals of care discussed with the patient. Plan discussed with Dr. Chaves Plan discussed with: Patient, Other (RN) NYHA Physical activity limitations: Class1(None)absent sob, Date of Service: May 15, 2025 Billing Provider: DARRELL CHAVES MD Cardiology Common Codes: [id number] INP/OBS CARE (High) ROGERIO BRYANT RESIDENT May 15, 2025 11:47
[2025-05-15] MEDS: VANCOMYCIN 1.5GM/250ML 250 ML IV ONE (12:04)
[2025-05-15] MEDS: ENOXAPARIN SOD 100 MG/1 ML SYRINGE SC SCH (12:05)
[2025-05-15] MEDS: ERGOCALCIFEROL 50,000 UNIT(1.25MG) CAP PO SCH (15:18)
[2025-05-15 15:27] LABS: COVID19 ANTIGEN SOFIA FIA NEGATIVE (NEGATIVE)
--- NOTE | 2025-05-15 15:48 | DVHINCON2 ---
Date Seen: May 15, 2025 Referring Physician BENJIE Ordaz Reason for Consultation Pacemaker complications History of Present Illness This is a 59-year-old female with a PMH of atrial fibrillation, diastolic congestive heart failure, CVA, insulin-dependent type 2 diabetes mellitus, CKD, seizures, HIV, peripheral neuropathy who presented to the ED with a complaint of chest pain in the left upper chest at the site of pacemaker implantation about 2 weeks ago. Patient reported tenderness, sharp, nonradiating chest pain occurring at rest in the left upper side of the chest associated with increased swelling around the site of a pacemaker implantation. Patient denied any fever, chills, palpitations. Patient was hospitalized recently about a week ago after fall for which she was in the hospital with 3-4 days and was just recently discharged. Chest US showed a complex region seen in the area of patient's palpable lump measuring 3.3 x 4.4 x 2.1 cm. Chest x-ray is clear. Patient was admitted to the hospital. I am asked to consult on this patient. Past Medical History As per HPI Past Surgical History As per HPI Family History: Cardiovascular disease G8 FATHER Diabetes mellitus G8 SISTER Suicide G8 BROTHER Allergies: Coded Allergies: Loperamide (Verified Allergy, Severe, 08/13/23) Nystatin (Verified Allergy, Severe, 08/13/23) Penicillins (Verified Allergy, Severe, 08/13/23) Diphenhydramine (Verified Allergy, Unknown, 09/23/24) Home Meds Active Scripts Cholecalciferol (VITAMIN D-3) 2,000 Unit Tab, 2000 UNIT PO DAILY, #30 TAB Prov:JENNYFER MCDANIEL MD 01/11/25 Hydrocodone-Acetaminophen (Hydrocodone Bitartrate/AC 5-325 mg) 1 Tab Tab, 1 TAB PO Q6HP PRN, #30 TAB Prov:JENNYFER MCDANIEL MD 01/11/25 Cyclobenzaprine HCl (Cyclobenzaprine Hydrochlo) 10 Mg Tab, 10 MG PO TID, #30 TAB Prov:JENNYFER MCDANIEL MD 01/11/25 Amiodarone HCl (Amiodarone HCl) 200 Mg Tab, 100 MG PO BID for 30 Days, #30 TAB please hold if heart rate remains below 50 / min Prov:LISA OAKES RESIDENT 12/30/24 Reported Medications Furosemide (Lasix) 40 Mg Tab, 40 MG PO DAILY, TAB 04/17/25 Lisinopril (Lisinopril) 2.5 Mg Tab, 2.5 MG PO DAILY for 30 Days, MG 04/17/25 Potassium Chloride (POTASSIUM CHLORIDE CR) 10 Meq Tb, 1 TAB PO DAILY, #30 TAB 5 Refills 04/17/25 Acetaminophen (Acetaminophen) 325 Mg Tab, 500 MG PO Q8HPRN PRN for MILD PAIN for 30 Days, MG 0 Refills 04/17/25 Gcyzfqri-Jifkbuqzfmby-Cgwnxyel (Triumeq 600-50-300 mg) 1 Tab Tab, 1 TAB PO DAILY, TAB 04/17/25 Dapagliflozin Propanediol (Farxiga) 10 Mg Tab, 5 MG PO DAILY, TAB 04/17/25 Duloxetine Hcl (Cymbalta) 60 Mg Cap, 1 CAP PO BID, #90 CAP 3 Refills 04/17/25 Insulin Glargine (Basaglar Kwikpen) 100 Unit/Ml Inj, 100 UNITS SC BID for 30 Days, #60 08/18/24 Insulin Lispro (Insulin Lispro Kwikpen) 100 Unit/Ml Inj, 10 UNITS SC DAILY for 100 Days, #15 08/18/24 Cetirizine HCl (Cetirizine Hydrochloride) 10 Mg Tab, 1 TAB PO DAILY for 90 Days, #90 08/18/24 Dapagliflozin Propanediol (Dapagliflozin Propanediol) 5 Mg Tab, 1 TAB PO DAILY for 100 Days, #100 08/18/24 Ferrous Sulfate (Ferosul) 325 Mg Tab, 1 TAB PO DAILY for anemia 06/08/24 Sitagliptin Phosphate (Januvia) 100 Mg Tab, 1 DAILY for 90 Days, #90 06/08/24 Cyclobenzaprine HCl (Cyclobenzaprine Hydrochlo) 10 Mg Tab, 1 TAB PO BID PRN for PAIN FOR MUSCLE SPASMS for 30 Days, #15 08/13/23 Famotidine (Famotidine) 20 Mg Tab, 1 TAB PO BID PRN for ACID REFLUX AND ABDOMINAL PAIN for 90 Days, #180 08/13/23 Hydrocodone-Acetaminophen (Hydrocodone/Acetaminophen 5-325 mg) 1 Tab Tab, 2 TAB PO BID 08/13/23 Pregabalin (Pregabalin) 200 Mg Cap, 1 CAP PO TID for 30 Days, #90 08/13/23 Apixaban Base (ELIQUIS) 5 Mg Tab, 1 TAB PO BID for 45 Days, #90 08/13/23 Aspirin (Aspirin) 81 Mg Chw, 1 TAB PO DAILY for 90 Days, #90 08/13/23 Atorvastatin Calcium (ATORVASTATIN CALCIUM) 40 Mg Tab, 1 TAB PO DAILY for 90 Days, #90 08/13/23 Current Medications Current Medications Medications (Trade) Dose Ordered Sig/Uyen Route PRN Reason Start Time Stop Time Status Last Admin Atorvastatin Calcium (Lipitor) 40 mg HS PO 05/15/25 22:00 Carvedilol (Coreg Tablet) 3.125 mg Q12HR PO 05/15/25 10:00 05/15/25 11:26 DC 05/15/25 10:55 Famotidine (Pepcid Injection) 20 mg DAILY IV 05/15/25 10:00 05/15/25 10:54 Diagnostic Test (Pha) (Accu-Chek Comfort Curve T) 1 strip ACHS 05/15/25 07:00 05/15/25 11:30 Insulin Human Regular (InsuLIN R) HS SC 05/15/25 22:00 Insulin Human Regular (InsuLIN R) AC SC 05/15/25 07:00 05/15/25 12:06 Dextrose 50 ml UD PRN IV Blood Sugar LESS THAN 60 05/15/25 03:30 Sodium Chloride (Saline Lock Ns) 10 ml Q8HR IV 05/15/25 06:00 05/15/25 05:55 Acetaminophen/ Hydrocodone Bitart (Porter 5/325MG Tab) 1 tab Q4HP PRN PO MODERATE PAIN (4-6 PAIN SCALE) 05/15/25 03:30 05/15/25 10:56 Ondansetron HCl (Zofran) 4 mg Q4HP PRN IV NAUSEA / VOMITING 05/15/25 03:30 Docusate Sodium (Colace Capsule) 100 mg BIDPRN PRN PO FOR CONSTIPATION 05/15/25 03:30 Acetaminophen (Tylenol Tablet) 650 mg Q6HP PRN PO PAIN SCALE 1-3 OR TEMP>100.4 05/15/25 03:30 Apixaban (Eliquis) 5 mg BID PO 05/15/25 10:00 05/15/25 09:48 DC Nitroglycerin (Ntrostat Sublingual) 0.4 mg Q5MINP PRN SL FOR CHEST PAIN 05/15/25 05:15 Morphine Sulfate 2 mg Q30M PRN IV FOR CHEST PAIN 05/15/25 05:15 Enoxaparin Sodium (Lovenox) 90 mg Q12HR SC 05/15/25 10:00 05/15/25 12:05 Aspirin 81 mg DAILY PO 05/15/25 20:00 Metoprolol Succinate (Toprol Xl) 25 mg DAILY PO 05/16/25 10:00 Lisinopril (Zestril Tablet) 2.5 mg DAILY PO 05/16/25 10:00 Review of Systems General: No fever, no chills, or fatigue HEENT: No sore throat, no earache, no congestion, no neck pain. Cardiac: (+) chest pain. No palpitations. Lungs: No shortness of breath, no cough. GI: No nausea, no vomiting, no diarrhea, no constipation, no abdominal pain : No dysuria, frequency, or urgency. No hematuria. Musculoskeletal: No joint pain , no joint swelling, no extremity edema. Skin: No rash, no itching. Neuro: No headache, no dizziness, no weakness Vital Signs Vital Signs Date Time Temp Pulse Resp B/P (MAP) Pulse Ox O2 Delivery O2 Flow Rate FiO2 05/15/25 11:01 65 10 108/60 (76) 97 05/15/25 07:27 Room Air* 0 21 05/15/25 07:27 97.4 97.4 Physical Exam GENERAL: Alert and oriented x 3. No acute distress. EYES: PERRL, EOMI. Anicteric. HENT: Moist mucous membranes. LUNGS: Clear to auscultation bilaterally. CARDIOVASCULAR: Regular rate and rhythm. ABDOMEN: Soft, nontender and nondistended. EXTREMITIES: No edema. NEUROLOGIC: No focal neurological deficits. SKIN: Warm, dry. [place] at the site of PPM implantation, fluctuant swelling without overlying erythema. Labs/Diagnostic Data Labs Test 05/15/25 11:56 05/15/25 05:22 05/14/25 23:54 05/14/25 23:26 Range/Units POC Glucose 272 H 70-106 mg/dl White Blood Count 7.8 4.4-10.8 10^3/uL Red Blood Count 5.05 4.0-5.20 10^6/uL Hemoglobin 15.2 12.2-16.2 g/dL Hematocrit 45.1 36.0-46.0 % Mean Corpuscular Volume 89.3 80.0-100.0 fL Mean Corpuscular Hemoglobin 30.1 28.0-32.0 pg Mean Corpuscular Hemoglobin Concent 33.7 32.0-36.0 g/dL Red Cell Distribution Width 16.1 H 11.8-14.3 % Platelet Count 173 140-450 10^3/uL Mean Platelet Volume 10.4 6.9-10.8 fL Neutrophils (%) (Auto) 65.3 37.0-80.0 % Lymphocytes (%) (Auto) 20.8 10.0-50.0 % Monocytes (%) (Auto) 8.8 0.0-12.0 % Eosinophils (%) (Auto) 4.1 0.0-7.0 % Basophils (%) (Auto) 1.0 0.0-2.0 % Neutrophils # (Auto) 5.1 1.6-8.6 10 ^3/uL Lymphocytes # (Auto) 1.6 0.4-5.4 10 ^3/uL Monocytes # (Auto) 0.7 0-1.3 10 ^3/uL Eosinophils # (Auto) 0.3 0-0.8 10 ^3/uL Basophils # (Auto) 0.1 0-0.2 10 ^3/uL Nucleated Red Blood Cells 0.1 % Prothrombin Time 10.3 9.3-11.8 sec Prothrombin Time INR 0.97 0.9-1.15 Activated Partial Thromboplast Time 25.6 24.5-34.5 SEC Sodium Level 142 136-145 mmol/L Potassium Level 3.8 3.5-5.1 mmol/L Chloride Level 105 98-107 mmol/L Carbon Dioxide Level 28 20-31 mmol/L Anion Gap 9 5-15 Blood Urea Nitrogen 16 9-23 mg/dL Creatinine 1.03 H 0.550-1.02 mg/dL Glomerular Filtration Rate Calc 62 >90 mL/min BUN/Creatinine Ratio 15.5 10.0-20.0 Serum Glucose 151 H 74-106 mg/dL Hemoglobin A1c 7.6 H <5.7 % A1C Calcium Level 9.6 8.7-10.4 mg/dL Magnesium Level 2.1 1.6-2.6 mg/dL Total Bilirubin 0.3 0.2-1.0 mg/dL Aspartate Amino Transferase (AST) 30 13-40 U/L Alanine Aminotransferase (ALT) 29 7-40 U/L Alkaline Phosphatase 83 46-116 U/L C-Reactive Protein High Sensitivity 0.61 <1.0 mg/dL Total Protein 7.5 5.7-8.2 g/dL Albumin 4.3 3.2-4.8 g/dL Triglycerides Level 329 H < 150 mg/dL Cholesterol Level 196 < 200 mg/dL LDL Cholesterol 113 H < 100 mg/dL HDL Cholesterol 52 40-59 mg/dL Vitamin D 25-Hydroxy 23.5 L 30.0-100 ng/mL Thyroid Stimulating Hormone (TSH) 2.91 0.55-4.78 uIU/mL Troponin I High Sensitivity 5 </=34 ng/L Urine Color Light-yellow Yellow Urine Clarity Clear Clear Urine pH 5.5 5.0-9.0 Urine Specific [place] 1.025 1.001-1.035 Urine Protein Trace H Negative Urine Ketones Negative Negative Urine Blood Negative Negative /uL Urine Nitrite Negative Negative Urine Bilirubin Negative Negative Urine Urobilinogen Normal Negative mg/dL Urine Leukocyte Esterase Trace Negative /uL Urine RBC 2 0 - 4 /hpf Urine Microscopic WBC 6 H 0-5 /HPF Urine Squamous Epithelial Cells Few <5 /hpf Urine Bacteria None seen None Seen /hpf Urine Glucose 4+ H Normal mg/dL Test 05/14/25 22:36 Range/Units B-Type Natriuretic Peptide 74.00 0-100 pg/mL Assessment Acute chest pain at pacemaker site implantation. ?Possible abscess, noncompliance with antibiotics post ppm implantation. Paroxysmal atrial fibrillation. Congestive heart failure, diastolic, no exacerbation. Plan/Recommendation I agree with your ongoing assessment and care of plan. Patient has been seen by Sonali Osborne Resident on my behalf, we have discussed the plan with the patient. Started on antibiotics IV Vancomycin. Rate control with the metoprolol, anticoagulation with Lovenox, continue on Eliquis on discharge. Additional plan as per the hospital course. Plan discussed with: Patient NYHA Physical activity limitations: Class1(None)absent sob, Date of Service: May 15, 2025 Billing Provider: DARRELL SIN MD Cardiology Common Codes: [id number] INP/OBS CARE (High) Cardiology Consultation Codes: [id number] CONSULT <45MIN DARRELL SIN MD May 15, 2025 13:43
--- NOTE | 2025-05-15 19:25 | ECG ---
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
--- NOTE | 2025-05-15 19:48 | DVHPNRES ---
Progress Note Date Seen: May 15, 2025 Resident Creating Document: JAYSON NORIEGA RESIDENT Has the PT tested + for MRSA If YES, has PT been informed?: No Medical Necessity Reason Pt with a Central, PICC or Fol: No Subjective Review of Systems Bhargavi Poole is a 59-year-old female, with past medical history of CHF, AFib, DM2, HIV (on antiretroviral therapy) and hypertension. The patient came to [facility] ED with the chief complaint of 2 weeks of progressively worsen chest pain, 7/10, intermittent, dull, localized on left upper part of the chest. On further questioning, the patient reported she had pacemaker placed 2 weeks ago and has been having intermittent episode of chest pain since then; associated with general weakness, subjective fever, chills and malaise. 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 The patient denies nausea, vomit, abdominal pain, secretion from the location of the pacemaker. The patient reported noticing more swelling, erythema and edema from the area of the pacemaker, and pain increased to 9/10, this prompted her visit to the ED. The patient was seen and evaluated in the ED, laboratory data shows WBC 7.1, troponin 5, BNP 74.00, On images, the chest x-ray revealed new cardiac pacer, no pneumothorax, no definite acute cardiopulmonary process. US of the chest showed a complex region seen in the area of patient's palpable lump measuring 3.3 x 4.4 x 2.1 cm, an abscess cannot be excluded.Please see medication orders section in the computer. On my assessment, patient denied chest pain at this moment, no headache, dizziness, diaphoresis, shortness of breaths, no diarrhea, nausea, vomiting, fever, no chills. Patient was admitted for further evaluation and medical management. Past Medical History AFIB, CHF, CKD, DM, HTN, HIV Past Surgical History Cholecystectomy, Hernia Repair, Pacemaker, Thyroidectomy Family History Reviewed, noncontributory to the management of this case. Past Social History The patient lives at assisted care living, smokes cigarettes less than 1 pack per day, denies alcohol or illicit drugs abuse. Home medications: abacavir/dolutegravir/lamivudine Hospital course: On 05/15/25, the patient was evaluated and examined at bedside. The patient's VS, labs and chart was reviewed. The patient still has general weakness. Since admission the patient reports chest pain localized on the insertion of the pacemaker, 12/28 that has subside mildly with analgesics. The patient is receiving IV antibiotics (Vancomycin) The patient' is receiving anticoagulation. The cardiology team was consulted, they recommended to continue with medical management with IV antibiotics, no procedure was recommended at this time. We will continue following the progress of this patient closely. ROS Constitutional: Generalized weakness; No: Fever, Chills, Sweats, Malaise, Other Eyes: No: Pain, Vision change, Conjunctivae inflammation, Eyelid inflammation, Other, Redness ENT: No: Ear pain, Ear discharge, Nose pain, Nose discharge, Nose congestion, Mouth pain, Mouth swelling, Throat pain, Throat swelling, Other Respiratory: No: Cough, Dry, Shortness of breath, SOB with excertion, Wheezing, Hemoptysis, Pleuritic Pain, Sputum, Wheezing, Other Cardiovascular: Chest Pain and a "lump" over the insertion of the pacemaker; No: Palpitations, Orthopnea, Paroxysmal Noc. Dyspnea Gastrointestinal: No: Nausea, Vomiting, Abdominal Pain, Diarrhea, Constipation, Melena, Hematochezia, Other Genitourinary: No Dysuria, No Frequency, No Incontinence, No Hematuria, No Retention, No Other Musculoskeletal: No: other, neck pain, shoulder pain, arm pain, back pain, hand pain, leg pain, foot pain Skin: No: Rash, Lesions, Jaundice, Bruising, Other Neurological: No: Weakness, Numbness, Incoordination, Change in speech, Confusion, Seizures, Other Allergies:Loperamide (Verified Allergy, Severe, 08/13/23) Nystatin (Verified Allergy, Severe, 08/13/23) Penicillins (Verified Allergy, Severe, 08/13/23) Diphenhydramine (Verified Allergy, Unknown, 09/23/24) Objective vital signs Vital Sign Date Time Temp Pulse Resp B/P (MAP) Pulse Ox O2 Delivery O2 Flow Rate FiO2 05/15/25 18:08 65 11 117/60 (79) 05/15/25 16:00 97 05/15/25 14:09 97.6 97.6 05/15/25 07:27 Room Air* 0 21 medications Current Medications Medications Dose Ordered Sig/Uyen Route Start Time Stop Time Status Last Admin Dose Admin Atorvastatin Calcium 40 mg HS PO 05/15/25 22:00 Famotidine 20 mg DAILY IV 05/15/25 10:00 05/15/25 10:54 20 MG Diagnostic Test (Pha) 1 strip ACHS 05/15/25 07:00 05/15/25 17:00 1 STRIP Insulin Human Regular HS SC 05/15/25 22:00 Insulin Human Regular AC SC 05/15/25 07:00 05/15/25 17:31 3 UNITS Dextrose 50 ml UD PRN IV 05/15/25 03:30 Sodium Chloride 10 ml Q8HR IV 05/15/25 06:00 05/15/25 15:18 10 ML Acetaminophen/ Hydrocodone Bitart 1 tab Q4HP PRN PO 05/15/25 03:30 05/15/25 18:12 1 TAB Ondansetron HCl 4 mg Q4HP PRN IV 05/15/25 03:30 Docusate Sodium 100 mg BIDPRN PRN PO 05/15/25 03:30 Acetaminophen 650 mg Q6HP PRN PO 05/15/25 03:30 Nitroglycerin 0.4 mg Q5MINP PRN SL 05/15/25 05:15 Morphine Sulfate 2 mg Q30M PRN IV 05/15/25 05:15 Enoxaparin Sodium 90 mg Q12HR SC 05/15/25 10:00 05/15/25 12:05 90 MG Aspirin 81 mg DAILY PO 05/15/25 20:00 Metoprolol Succinate 25 mg DAILY PO 05/16/25 10:00 Lisinopril 2.5 mg DAILY PO 05/16/25 10:00 Patient Own Medication 1 tab DAILY PO 05/16/25 10:00 Ergocalciferol 50,000 unit Q7D PO 05/15/25 14:30 05/15/25 15:18 50,000 UNIT Examination General Appearance: Alert, Oriented X3, Cooperative, in acute distress HEENT: Atraumatic, PERRLA, EOMI, Mucous membr. moist/pink Respiratory: Clear to auscultation, Normal air movement Chest: There is swelling, edema and erythema over the left upper chest area where the pace maker was implanted. Surgical incision with red borders, tin in place, no active bleeding or discharge. Cardiovascular: Regular rate, Normal S1, Normal S2, No murmurs. Abdominal: Normal bowel sounds, Soft, No tenderness, No hepatospenomegaly, No masses Extremities: No clubbing, No cyanosis, No edema, Normal pulses, No tenderness/swelling Skin: No rashes. Neuro: Normal speech, Normal tone, Sensation intact, Cranial nerves 3-12 NL, Reflexes 2+, Other (Generalized weakness) Psych/Mental Status: Mental status NL, Mood NL laboratory and microbiology Laboratory Tests 05/15/25 05:22 Test 05/15/25 05:22 Range/Units Serum Glucose 151 H 74-106 mg/dL Problem List/Assessment/Plan Problem List/Assessment/Plan #Acute chest pain in pacemaker site implantation #Noncompliance with antibiotics post ppm implantation #Generalized weakness due to above Pain control management IV fluids Cardiology consult: ongoing IV antibiotics: Vancomicyn Blood cultures Wound culture Wound care #Chronic Paroxysmal atrial fibrillation Rate control with the metoprolol, Anticoagulation with Lovenox, continue on Eliquis on discharge [id number] score:6 #Chronic Congestive heart failure, diastolic, no exacerbation #Chronic hypertensive disease with diastolic failure Continue with GDMT therapy Strict I&O BNP #Chronic Diabetes mellitus type 2, with hyperglycemia Insulin sliding scale Low carbohydrate diet #CKD Stage 2 Monitor Creatinine/BUN Avoid nephrotoxic drugs #HIV infection Medication reconciliation: Abacavir/dolutegravir/lamivudine CD4 total #Obesity BMI: 34.4 Counseling about healthy life style. Diet: Cardiac DVT prophylaxis: SCD GI prophylaxis: Protonix Code status: full code Disposition: Telemetry PCP: Non Cardiology: Dr. Chaves Patient's status and plan discussed with the patient >30min. Case discussed with Dr. Rock Plan discussed with: Patient My Orders My Orders Orders - JAYSON NORIEGA RESIDENT Procedure Category Date Status Time Drug Screen LAB 05/15/25 Logged 07:18 Sequential SANJU 05/15/25 In Process Compression Device 07:18 Enoxaparin Sodium PHA 05/15/25 In Process (Lovenox) 10:00 Mrsa Screen CRISTIAN 05/15/25 Logged 16:40 Education - Smoking SANJU 05/15/25 In Process Cessation 16:40 * Smoking Cessation CONS 05/15/25 Transmitted Consult 16:40 Visit Coding STANDARD RES Billing Provider: MATILDA VILLA MD Date of Service if different f: May 15, 2025 Common Visit Codes: [id number] INP/OBS CARE(HIGH) JAYSON NORIEGA RESIDENT May 15, 2025 19:48
[2025-05-15 20:00] VITALS: PULSE 65; RESP 18
[2025-05-15 21:00] VITALS: BP 115/55; PULSE 65; RESP 18; TEMP 98.4; O2SAT 95
[2025-05-15] MEDS: ATORVASTATIN 20 MG TAB PO SCH (21:35)
[2025-05-16] VITALS (9 sets, daily range): BP systolic 119–147; BP diastolic 52–86; PULSE 60–62; RESP 14–20; TEMP 97.8–98.5; O2SAT 95–98
[2025-05-16 06:43] LABS: Albumin 3.8 g/dL (3.2-4.8); Alkaline Phosphatase 78 U/L (46-116); Anion Gap 10 (5-15); BUN/Creatinine Ratio 13.8 (10.0-20.0); Blood Urea Nitrogen 15 mg/dL (9-23); Calcium 9.4 mg/dL (8.7-10.4); Carbon Dioxide 26 mmol/L (20-31); Chloride 106 mmol/L (98-107); Potassium 4.0 mmol/L (3.5-5.1); Sodium 142 mmol/L (136-145); Total Protein 6.5 g/dL (5.7-8.2)
[2025-05-16 06:54] LABS: Bilirubin, Total 0.2 mg/dL (0.2-1.0); Glucose 196 mg/dL (74-106)
[2025-05-16 07:08] LABS: Alanine Aminotransferase 30 U/L (7-40)
[2025-05-16 07:39] LABS: Hematocrit 44.3 % (36.0-46.0); Hemoglobin 14.5 g/dL (12.2-16.2); Mean Corpuscular Hemoglobin 29.4 pg (28.0-32.0); Mean Corpuscular Volume 89.9 fL (80.0-100.0); Nucleated Red Blood Cells % 0.2 %
[2025-05-16] MEDS: LISINOPRIL 5 MG TAB PO SCH (09:17)
[2025-05-16] MEDS: METOPROLOL SUCCINATE XL 50 MG TAB PO SCH (09:18)
[2025-05-16] MEDS: MORPHINE SULFATE INJ 2 MG/ml SYRG IV PRN (10:12)
[2025-05-16] MEDS: MORPHINE SULFATE 4 MG/ML SYR/VIAL ONE (10:14)
--- NOTE | 2025-05-16 15:43 | DVHPNRES ---
Progress Note Date Seen: May 16, 2025 Resident Creating Document: JAYSON NORIEGA RESIDENT Has the PT tested + for MRSA If YES, has PT been informed?: No Medical Necessity Reason Pt with a Central, PICC or Fol: No Subjective Review of Systems PHI: Bhargavi Poole is a 59-year-old female, with past medical history of CHF, AFib, DM2, HIV (on antiretroviral therapy) and hypertension. The patient came to [facility] ED with the chief complaint of 2 weeks of progressively worsen chest pain, 7/10, intermittent, dull, localized on left upper part of the chest. On further questioning, the patient reported she had pacemaker placed 2 weeks ago and has been having intermittent episode of chest pain since then; associated with general weakness, subjective fever, chills and malaise. The patient reports has not seen her general engineer regarding this issue yet. The patient denies nausea, vomit, abdominal pain, secretion from the location of the pacemaker. The patient reported noticing more swelling, erythema and edema from the area of the pacemaker, and pain increased to 9/10, this prompted her visit to the ED. The patient was seen and evaluated in the ED, laboratory data shows WBC 7.1, troponin 5, BNP 74.00, On images, the chest x-ray revealed new cardiac pacer, no pneumothorax, no definite acute cardiopulmonary process. US of the chest showed a complex region seen in the area of patient's palpable lump measuring 3.3 x 4.4 x 2.1 cm, an abscess cannot be excluded.Please see medication orders section in the computer. On my assessment, patient denied chest pain at this moment, no headache, dizziness, diaphoresis, shortness of breaths, no diarrhea, nausea, vomiting, fever, no chills. Patient was admitted for further evaluation and medical management. Past Medical History AFIB, CHF, CKD, DM, HTN, HIV Past Surgical History Cholecystectomy, Hernia Repair, Pacemaker, Thyroidectomy Family History Reviewed, noncontributory to the management of this case. Past Social History The patient lives at assisted care living, smokes cigarettes less than 1 pack per day, denies alcohol or illicit drugs abuse. Home medications: abacavir/dolutegravir/lamivudine Hospital course: On 05/15/25, the patient was evaluated and examined at bedside. The patient's VS, labs and chart was reviewed. The patient still has general weakness. Since admission the patient reports chest pain localized on the insertion of the pacemaker, 8/10 that has subside mildly with analgesics. The patient is receiving IV antibiotics (Vancomycin) The patient' is receiving anticoagulation. The cardiology team was consulted, they recommended to continue with medical management with IV antibiotics, no procedure was recommended at this time. We will continue following the progress of this patient closely. On 05/14/25, the patient was evaluated and examined at bedside. The patient's VS, labs and chart was reviewed. The patient reports chest pain today 9/10 in the middle of the chest and over the pacemaker, new EKG was requested, it showed atrial-paced complexes. No significant ST changes, troponins are 3. No Afib episodes were reported on telemetry. The patient continues receiving IV antibiotics (Vancomycin), The patient' is receiving anticoagulation. The cardiology team was consulted, they recommended to continue with medical management with IV antibiotics, no procedure was recommended at this time. Pacemaker interrogation was requested, still pending at this time. We will continue following the progress of this patient closely. ROS Constitutional: Generalized weakness has improved; No: Fever, Chills, Sweats, Malaise, Other Eyes: No: Pain, Vision change, Conjunctivae inflammation, Eyelid inflammation, Other, Redness ENT: No: Ear pain, Ear discharge, Nose pain, Nose discharge, Nose congestion, Mouth pain, Mouth swelling, Throat pain, Throat swelling, Other Respiratory: No: Cough, Dry, Shortness of breath, SOB with excertion, Wheezing, Hemoptysis, Pleuritic Pain, Sputum, Wheezing, Other Cardiovascular: Chest Pain 9/10 and a "lump" over the insertion of the pacemaker; No: Palpitations, Orthopnea, Paroxysmal Noc. Dyspnea Gastrointestinal: No: Nausea, Vomiting, Abdominal Pain, Diarrhea, Constipation, Melena, Hematochezia, Other Genitourinary: No Dysuria, No Frequency, No Incontinence, No Hematuria, No Retention, No Other Musculoskeletal: No: other, neck pain, shoulder pain, arm pain, back pain, hand pain, leg pain, foot pain Skin: No: Rash, Lesions, Jaundice, Bruising, Other Neurological: No: Weakness, Numbness, Incoordination, Change in speech, Confusion, Seizures, Other Allergies:Loperamide (Verified Allergy, Severe, 3/25/24) Nystatin (Verified Allergy, Severe, 08/13/23) Penicillins (Verified Allergy, Severe, 08/13/23) Diphenhydramine (Verified Allergy, Unknown, 09/23/24) Objective vital signs Vital Sign Date Time Temp Pulse Resp B/P (MAP) Pulse Ox O2 Delivery O2 Flow Rate FiO2 05/16/25 13:05 98.5 62 20 144/57 (86) 98 98.5 05/16/25 07:45 Room Air* 0 21 Total Intake and Output 05/15/25 05/15/25 05/16/25 15:00 23:00 07:00 Intake Total 250 ml 200 ml Balance 250 ml 200 ml medications Current Medications Medications Dose Ordered Sig/Uyen Route Start Time Stop Time Status Last Admin Dose Admin Atorvastatin Calcium 40 mg HS PO 05/15/25 22:00 05/15/25 21:35 40 MG Famotidine 20 mg DAILY IV 05/15/25 10:00 05/16/25 09:16 20 MG Diagnostic Test (Pha) 1 strip ACHS 05/15/25 07:00 05/16/25 11:52 1 STRIP Insulin Human Regular HS SC 05/15/25 22:00 05/15/25 21:33 4 UNITS Insulin Human Regular AC SC 05/15/25 07:00 05/16/25 11:53 6 UNITS Dextrose 50 ml UD PRN IV 05/15/25 03:30 Sodium Chloride 10 ml Q8HR IV 05/15/25 06:00 05/16/25 13:24 10 ML Acetaminophen/ Hydrocodone Bitart 1 tab Q4HP PRN PO 05/15/25 03:30 05/16/25 09:16 1 TAB Ondansetron HCl 4 mg Q4HP PRN IV 05/15/25 03:30 Docusate Sodium 100 mg BIDPRN PRN PO 05/15/25 03:30 Acetaminophen 650 mg Q6HP PRN PO 05/15/25 03:30 Nitroglycerin 0.4 mg Q5MINP PRN SL 05/15/25 05:15 Morphine Sulfate 2 mg Q30M PRN IV 05/15/25 05:15 05/16/25 10:12 2 MG Enoxaparin Sodium 90 mg Q12HR SC 05/15/25 10:00 05/16/25 09:22 90 MG Aspirin 81 mg DAILY PO 05/15/25 20:00 05/16/25 09:17 81 MG Metoprolol Succinate 25 mg DAILY PO 05/16/25 10:00 05/16/25 09:18 25 MG Lisinopril 2.5 mg DAILY PO 05/16/25 10:00 05/16/25 09:17 2.5 MG Patient Own Medication 1 tab DAILY PO 05/16/25 10:00 Ergocalciferol 50,000 unit Q7D PO 05/15/25 14:30 05/15/25 15:18 50,000 UNIT laboratory and microbiology Laboratory Tests 05/16/25 04:55 Test 05/16/25 04:55 Range/Units Serum Glucose 196 H 74-106 mg/dL Problem List/Assessment/Plan Problem List/Assessment/Plan #Acute chest pain in pacemaker site implantation #Noncompliance with antibiotics post ppm implantation #Generalized weakness due to above Pain control management IV fluids Cardiology consult: ongoing IV antibiotics: Vancomicyn Blood cultures: pending to report ECHO: pending. Pacemaker interrogation, pending. #Chronic Paroxysmal atrial fibrillation Rate control with the metoprolol, Anticoagulation with Lovenox, continue on Eliquis on discharge [id number] score:6 #Chronic Congestive heart failure, diastolic, no exacerbation #Chronic hypertensive disease with diastolic failure Continue with GDMT therapy Strict I&O BNP: 74 #Chronic Diabetes mellitus type 2, with hyperglycemia Insulin sliding scale Low carbohydrate diet #CKD Stage 2 Monitor Creatinine/BUN Avoid nephrotoxic drugs #HIV infection Medication reconciliation: Abacavir/dolutegravir/lamivudine. ( is not available in the hospital) CD4/CD8 counts, pending #Obesity BMI: 34.4 Counseling about healthy life style. Diet: Cardiac DVT prophylaxis: SCD GI prophylaxis: Protonix Code status: full code Disposition: Telemetry PCP: Non Cardiology: Dr. Chaves Patient's status and plan discussed with the patient >30min. Case discussed with Dr. Augustin Plan discussed with: Patient My Orders My Orders Orders - JAYSON NORIEGA RESIDENT Procedure Category Date Status Time Mrsa Screen CRISTIAN 05/15/25 Logged 16:40 Education - Smoking SANJU 05/15/25 In Process Cessation 16:40 * Smoking Cessation CONS 05/15/25 Transmitted Consult 16:40 Blood Culture CRISTIAN 05/15/25 In Process 19:27 Strict I&O ED NURSING 05/15/25 Transmitted Cd4/Cd8 Ratio Profile LAB 05/15/25 In Process 20:00 Electrocardigram EKG 05/16/25 Logged 10:02 Communication Order ORDERS 05/16/25 Transmitted 12:59 Echo 2d Mode Cardiac US 05/16/25 Logged DOP 12:59 Complete Blood Count LAB 05/17/25 Verified 04:00 Basic Metabolic Panel LAB 05/17/25 Verified 04:00 Visit Coding STANDARD RES Billing Provider: LUCRECIA AUGUSTIN MD Date of Service if different f: May 16, 2025 Common Visit Codes: [id number] INP/OBS CARE(HIGH) JAYSON NORIEGA RESIDENT May 16, 2025 15:43
--- NOTE | 2025-05-16 19:38 | DVHPN2 ---
Progress Note - Dictate Date Seen: May 16, 2025 Has the PT tested + for MRSA If YES, has PT been informed?: No Medical Necessity Reason Pt with a Central, PICC or Fol: No Subjective Patient was seen and evaluated in follow up. No overnight events. Echocardiogram is ordered/pending. CBC and chemistry are WNL. Immunology is pending. Telemetry reviewed. vital signs Vital Sign Date Time Temp Pulse Resp B/P (MAP) Pulse Ox O2 Delivery O2 Flow Rate FiO2 05/16/25 16:48 98.2 61 20 119/74 (89) 96 98.2 05/16/25 07:45 Room Air* 0 21 Total Intake and Output 05/15/25 05/15/25 05/16/25 15:00 23:00 07:00 Intake Total 250 ml 200 ml Balance 250 ml 200 ml medications Current Medications Medications Dose Ordered Sig/Uyen Route Start Time Stop Time Status Last Admin Dose Admin Atorvastatin Calcium 40 mg HS PO 05/15/25 22:00 05/15/25 21:35 40 MG Famotidine 20 mg DAILY IV 05/15/25 10:00 05/16/25 09:16 20 MG Diagnostic Test (Pha) 1 strip ACHS 05/15/25 07:00 05/16/25 16:46 1 STRIP Insulin Human Regular HS SC 05/15/25 22:00 05/15/25 21:33 4 UNITS Insulin Human Regular AC SC 05/15/25 07:00 05/16/25 16:47 3 UNITS Dextrose 50 ml UD PRN IV 05/15/25 03:30 Sodium Chloride 10 ml Q8HR IV 05/15/25 06:00 05/16/25 13:24 10 ML Acetaminophen/ Hydrocodone Bitart 1 tab Q4HP PRN PO 05/15/25 03:30 05/16/25 09:16 1 TAB Ondansetron HCl 4 mg Q4HP PRN IV 05/15/25 03:30 Docusate Sodium 100 mg BIDPRN PRN PO 05/15/25 03:30 Acetaminophen 650 mg Q6HP PRN PO 05/15/25 03:30 Nitroglycerin 0.4 mg Q5MINP PRN SL 05/15/25 05:15 Morphine Sulfate 2 mg Q30M PRN IV 05/15/25 05:15 05/16/25 10:12 2 MG Enoxaparin Sodium 90 mg Q12HR SC 05/15/25 10:00 05/16/25 09:22 90 MG Aspirin 81 mg DAILY PO 05/15/25 20:00 05/16/25 09:17 81 MG Metoprolol Succinate 25 mg DAILY PO 05/16/25 10:00 05/16/25 09:18 25 MG Lisinopril 2.5 mg DAILY PO 05/16/25 10:00 05/16/25 09:17 2.5 MG Patient Own Medication 1 tab DAILY PO 05/16/25 10:00 Ergocalciferol 50,000 unit Q7D PO 05/15/25 14:30 05/15/25 15:18 50,000 UNIT objective GENERAL: Alert and oriented x 3. No acute distress. EYES: PERRL, EOMI. Anicteric. HENT: Moist mucous membranes. LUNGS: Clear to auscultation bilaterally. CARDIOVASCULAR: Regular rate and rhythm. ABDOMEN: Soft, nontender and nondistended. EXTREMITIES: No edema. NEUROLOGIC: No focal neurological deficits. SKIN: Warm, dry. [place] at the site of PPM implantation, fluctuant swelling without overlying erythema. laboratory and microbiology Laboratory Tests 05/16/25 04:55 Test 05/16/25 04:55 Range/Units Serum Glucose 196 H 74-106 mg/dL Problem List Acute chest pain at pacemaker site implantation. ?Possible abscess, noncompliance with antibiotics post ppm implantation. Paroxysmal atrial fibrillation. Congestive heart failure, diastolic, no exacerbation. Assessment/Plan Continued all current supportive medical care. Morphine and [place] for pain management. Aspirin, Lipitor, Metoprolol. DVT prophylactics. Lisinopril. Nitro SL. Additional plan as per the hospital course. Plan discussed with: Patient DARRELL SIN MD May 16, 2025 19:38
[2025-05-17] VITALS (7 sets, daily range): BP systolic 119–145; BP diastolic 55–93; PULSE 58–68; RESP 17–20; TEMP 97.4–98.4; O2SAT 97–100
[2025-05-17 03:37] LABS: Hematocrit 42.6 % (34.0-46.6); Hemoglobin 14.2 g/dL (11.1-15.9); MCH 31.1 pg (26.6-33.0); MCHC 33.3 g/dL (31.5-35.7); MCV 93 fL (79-97); RBC 4.56 x10E6/uL (3.77-5.28); RDW 14.5 % (11.7-15.4); WBC 5.3 x10E3/uL (3.4-10.8)
[2025-05-17 07:24] LABS: Anion Gap 8 (5-15); Carbon Dioxide 26 mmol/L (20-31); Chloride 109 mmol/L (98-107); Hematocrit 43.8 % (36.0-46.0); Hemoglobin 14.8 g/dL (12.2-16.2); Mean Corpuscular Hemoglobin 30.0 pg (28.0-32.0); Mean Corpuscular Volume 88.6 fL (80.0-100.0); Nucleated Red Blood Cells % 0.2 %; Potassium 4.0 mmol/L (3.5-5.1); Sodium 143 mmol/L (136-145)
[2025-05-17 07:25] LABS: Calcium 9.7 mg/dL (8.7-10.4)
[2025-05-17 07:30] LABS: BUN/Creatinine Ratio 12.6 (10.0-20.0); Blood Urea Nitrogen 12 mg/dL (9-23)
[2025-05-17 07:38] LABS: Glucose 126 mg/dL (74-106)
[2025-05-17] MEDS: VANCOMYCIN 1GM/250ML KIT 250 ML IV ONE (08:15)
[2025-05-17] MEDS ORDERED: VANCOMYCIN PER PHARMACY 0 MG IV SCH (08:15)
[2025-05-17] MEDS ORDERED: MEROPENEM 1GM IVPB 50 ML IV SCH (14:00)
--- NOTE | 2025-05-17 14:34 | DVHPNRES ---
Progress Note Date Seen: May 17, 2025 Resident Creating Document: JEANNETTE BOYD RESIDENT Has the PT tested + for MRSA If YES, has PT been informed?: No Medical Necessity Reason Pt with a Central, PICC or Fol: No Subjective Review of Systems Patient was seen today at bedside Labs and chart reviewed swolling on the pacemaker side, with some fluctuation Ordered metronidazole for anaerobic coverage Continue vancomycin as per pharmacy protocol Cardiology recommendation Objective vital signs Vital Sign Date Time Temp Pulse Resp B/P (MAP) Pulse Ox O2 Delivery O2 Flow Rate FiO2 05/17/25 13:19 97.7 68 20 119/55 (76) 100 97.7 05/16/25 20:00 Room Air* 0 21 Total Intake and Output 05/16/25 05/16/25 05/17/25 15:00 23:00 07:00 Intake Total 500 ml 500 ml Balance 500 ml 500 ml medications Current Medications Medications Dose Ordered Sig/Uyen Route Start Time Stop Time Status Last Admin Dose Admin Atorvastatin Calcium 40 mg HS PO 05/15/25 22:00 05/16/25 22:13 40 MG Famotidine 20 mg DAILY IV 05/15/25 10:00 05/17/25 10:28 20 MG Diagnostic Test (Pha) 1 strip ACHS 05/15/25 07:00 05/17/25 11:32 1 STRIP Insulin Human Regular HS SC 05/15/25 22:00 05/16/25 22:20 4 UNITS Insulin Human Regular AC SC 05/15/25 07:00 05/17/25 11:31 9 UNITS Dextrose 50 ml UD PRN IV 05/15/25 03:30 Sodium Chloride 10 ml Q8HR IV 05/15/25 06:00 05/17/25 05:57 10 ML Acetaminophen/ Hydrocodone Bitart 1 tab Q4HP PRN PO 05/15/25 03:30 05/17/25 05:56 1 TAB Ondansetron HCl 4 mg Q4HP PRN IV 05/15/25 03:30 Docusate Sodium 100 mg BIDPRN PRN PO 05/15/25 03:30 Acetaminophen 650 mg Q6HP PRN PO 05/15/25 03:30 Nitroglycerin 0.4 mg Q5MINP PRN SL 05/15/25 05:15 Morphine Sulfate 2 mg Q30M PRN IV 05/15/25 05:15 05/16/25 10:12 2 MG Enoxaparin Sodium 90 mg Q12HR SC 05/15/25 10:00 05/17/25 10:29 90 MG Aspirin 81 mg DAILY PO 05/15/25 20:00 05/17/25 10:28 81 MG Metoprolol Succinate 25 mg DAILY PO 05/16/25 10:00 05/17/25 10:29 25 MG Lisinopril 2.5 mg DAILY PO 05/16/25 10:00 05/17/25 10:29 2.5 MG Patient Own Medication 1 tab DAILY PO 05/16/25 10:00 Ergocalciferol 50,000 unit Q7D PO 05/15/25 14:30 05/15/25 15:18 50,000 UNIT Vancomycin HCl 0 ml @ 0 mls/hr PER PHARMACY IV 05/17/25 08:15 Meropenem 50 ml @ 17 mls/hr Q8HR IV 05/17/25 14:00 laboratory and microbiology Laboratory Tests 05/17/25 05:05 Test 05/17/25 05:05 Range/Units Serum Glucose 126 H 74-106 mg/dL Microbiology Date/Time Source Procedure Growth Status 05/15/25 20:05 Blood Blood Culture - Preliminary NO GROWTH AFTER 24 HOURS OF INCUBATION. Resulted Problem List/Assessment/Plan Problem List/Assessment/Plan Problem List/Assessment/Plan #Acute chest pain in pacemaker site implantation #Noncompliance with antibiotics post ppm implantation #Generalized weakness due to above Pain control management Cardiology consult: ongoing -ordered Flagyl for Gram-negative IV antibiotics: Vancomicyn Blood cultures no growth so far Pacemaker interrogation, pending. #Chronic Paroxysmal atrial fibrillation Rate control with the metoprolol, Anticoagulation with Lovenox, continue on Eliquis on discharge [id number] score:6 #Chronic Congestive heart failure, diastolic, no exacerbation #Chronic hypertensive disease with diastolic failure Continue with GDMT therapy Strict I&O BNP: 74 #Chronic Diabetes mellitus type 2, with hyperglycemia Insulin sliding scale Low carbohydrate diet #CKD Stage 2 Monitor Creatinine/BUN Avoid nephrotoxic drugs #HIV infection Medication reconciliation: Abacavir/dolutegravir/lamivudine. ( is not available in the hospital) CD4/CD8 counts, pending #Obesity BMI: 34.4 Counseling about healthy life style. Diet: Cardiac DVT prophylaxis: SCD GI prophylaxis: Protonix Code status: full code Disposition: Telemetry PCP: Non Cardiology: Dr. Chaves Patient's status and plan discussed with the patient >30min. Case discussed with Dr. Augustin Plan discussed with: Patient Plan discussed with: Patient, Other (RN) My Orders My Orders Orders - JEANNETTE BOYD Procedure Category Date Status Time Vancomycin Per PHA 05/17/25 In Process Pharmacy 08:15 Complete Blood Count LAB 05/18/25 Verified 04:00 Creatinine LAB 05/18/25 Verified 04:00 Vancomycin,Random LAB 05/18/25 Verified 04:00 Meropenem 1gm Ivpb PHA 05/17/25 In Process (Merrem 1gm/50ml) 14:00 Visit Coding STANDARD RES Billing Provider: MATILDA VILLA MD Date of Service if different f: May 17, 2025 Common Visit Codes: [id number] INP/OBS CARE(HIGH) JEANNETTE BOYD May 17, 2025 14:34
--- NOTE | 2025-05-17 20:11 | DVHPN2 ---
Progress Note - Dictate Date Seen: May 17, 2025 Has the PT tested + for MRSA If YES, has PT been informed?: No Medical Necessity Reason Pt with a Central, PICC or Fol: No Subjective Patient was seen and evaluated in follow up. Patient reports feeling well today. CL 109, GLUC 265. Prelim blood cultures show no growth. Telemetry reviewed. vital signs Vital Sign Date Time Temp Pulse Resp B/P (MAP) Pulse Ox O2 Delivery O2 Flow Rate FiO2 05/17/25 13:19 97.7 68 20 119/55 (76) 100 97.7 05/16/25 20:00 Room Air* 0 21 Total Intake and Output 05/16/25 05/16/25 05/17/25 15:00 23:00 07:00 Intake Total 500 ml 500 ml Balance 500 ml 500 ml medications Current Medications Medications Dose Ordered Sig/Uyen Route Start Time Stop Time Status Last Admin Dose Admin Atorvastatin Calcium 40 mg HS PO 05/15/25 22:00 05/16/25 22:13 40 MG Famotidine 20 mg DAILY IV 05/15/25 10:00 05/17/25 10:28 20 MG Diagnostic Test (Pha) 1 strip ACHS 05/15/25 07:00 05/17/25 11:32 1 STRIP Insulin Human Regular HS SC 05/15/25 22:00 05/16/25 22:20 4 UNITS Insulin Human Regular AC SC 05/15/25 07:00 05/17/25 11:31 9 UNITS Dextrose 50 ml UD PRN IV 05/15/25 03:30 Sodium Chloride 10 ml Q8HR IV 05/15/25 06:00 05/17/25 05:57 10 ML Acetaminophen/ Hydrocodone Bitart 1 tab Q4HP PRN PO 05/15/25 03:30 05/17/25 05:56 1 TAB Ondansetron HCl 4 mg Q4HP PRN IV 05/15/25 03:30 Docusate Sodium 100 mg BIDPRN PRN PO 05/15/25 03:30 Acetaminophen 650 mg Q6HP PRN PO 05/15/25 03:30 Nitroglycerin 0.4 mg Q5MINP PRN SL 05/15/25 05:15 Morphine Sulfate 2 mg Q30M PRN IV 05/15/25 05:15 05/16/25 10:12 2 MG Enoxaparin Sodium 90 mg Q12HR SC 05/15/25 10:00 05/17/25 10:29 90 MG Aspirin 81 mg DAILY PO 05/15/25 20:00 05/17/25 10:28 81 MG Metoprolol Succinate 25 mg DAILY PO 05/16/25 10:00 05/17/25 10:29 25 MG Lisinopril 2.5 mg DAILY PO 05/16/25 10:00 05/17/25 10:29 2.5 MG Patient Own Medication 1 tab DAILY PO 05/16/25 10:00 Ergocalciferol 50,000 unit Q7D PO 05/15/25 14:30 05/15/25 15:18 50,000 UNIT Vancomycin HCl 0 ml @ 0 mls/hr PER PHARMACY IV 05/17/25 08:15 Meropenem 50 ml @ 17 mls/hr Q8HR IV 05/17/25 14:00 objective GENERAL: Alert and oriented x 3. No acute distress. EYES: PERRL, EOMI. Anicteric. HENT: Moist mucous membranes. LUNGS: Clear to auscultation bilaterally. CARDIOVASCULAR: Regular rate and rhythm. ABDOMEN: Soft, nontender and nondistended. EXTREMITIES: No edema. NEUROLOGIC: No focal neurological deficits. SKIN: Warm, dry. [place] at the site of PPM implantation, fluctuant swelling without overlying erythema. laboratory and microbiology Laboratory Tests 05/17/25 05:05 Test 05/17/25 05:05 Range/Units Serum Glucose 126 H 74-106 mg/dL Problem List Acute chest pain at pacemaker site implantation. ?Possible abscess, noncompliance with antibiotics post ppm implantation. Paroxysmal atrial fibrillation. Congestive heart failure, diastolic, no exacerbation. Assessment/Plan Continued all current supportive medical care. Morphine and [place] for pain management. Aspirin, Lipitor, Metoprolol. DVT prophylactics. Lisinopril. Nitro SL. Additional plan as per the hospital course. Plan discussed with: Patient DARRELL SIN MD May 17, 2025 14:02
[2025-05-17] MEDS ORDERED: MEROPENEM 2GM/ 250ML 250 ML IV SCH (22:00)
[2025-05-18 01:00] VITALS: BP 148/84; PULSE 60; RESP 20; TEMP 97.7; O2SAT 95
[2025-05-18 05:00] VITALS: BP 159/89; PULSE 60; RESP 20; TEMP 98.2; O2SAT 96
[2025-05-18 07:10] LABS: Hematocrit 44.2 % (36.0-46.0); Hemoglobin 15.1 g/dL (12.2-16.2); Mean Corpuscular Hemoglobin 30.2 pg (28.0-32.0); Mean Corpuscular Volume 88.5 fL (80.0-100.0); Nucleated Red Blood Cells % 0.0 %
[2025-05-18 07:29] LABS: Anion Gap 8 (5-15); Carbon Dioxide 25 mmol/L (20-31); Potassium 4.0 mmol/L (3.5-5.1); Sodium 144 mmol/L (136-145)
[2025-05-18 07:30] LABS: Calcium 9.9 mg/dL (8.7-10.4)
[2025-05-18 07:35] LABS: BUN/Creatinine Ratio 10.4 (10.0-20.0); Blood Urea Nitrogen 10 mg/dL (9-23)
[2025-05-18 07:36] LABS: Magnesium 1.8 mg/dL (1.6-2.6)
[2025-05-18 07:40] LABS: Chloride 111 mmol/L (98-107); Glucose 161 mg/dL (74-106)
--- NOTE | 2025-05-18 07:42 | ECG ---
[facility] Test Date: 2025-05-15 Test Time: 01:43:38 Pat Name: FELICE COLE Department: [facility] ED Patient ID: [facility]-[id number] Room: 0207T A Gender: F Media Liaison Officer: : 1965 Requested By: DESIRAE WAYNE Order Number: [id number] Reading MD: Stephen Gomez Measurements Intervals [place] Rate: 63 P: -10 IA: 152 QRS: 164 QRSD: 94 T: 39 QT: 457 QTc: 468 Interpretive Statements Sinus rhythm Left posterior fascicular block Consider anterior infarct Electronically Signed On 05-21-2025 17:31:07 PST by Stephen Gomez Please click the below link to view image of tracing.
[2025-05-18 08:00] VITALS: PULSE 60
[2025-05-18 09:00] VITALS: BP 142/73; PULSE 59; RESP 18; TEMP 97.6; O2SAT 99
[2025-05-18 09:07] LABS: CD4/CD8 Ratio 2.92 (0.92-3.72)
[2025-05-18] MEDS: VANCOMYCIN 1GM/250ML KIT 250 ML IV SCH (12:21)
[2025-05-18 12:31] VITALS: BP 135/85; PULSE 59; RESP 18; TEMP 97.6; O2SAT 98
[2025-05-18] MEDS ORDERED: DOXY100C79 PO ×2 (13:49→15:48)
--- NOTE | 2025-05-18 14:00 | DVH ---
CLINICAL INDICATION: recent fall TECHNIQUE: 3 radiographic views of the pelvis were obtained. COMPARISON: None FINDINGS/IMPRESSION: Proximal femurs are intact bilaterally and normal alignment with no dislocations. Acetabula appear intact no fractures. Superior and inferior pubic rami appear intact normal alignment. Right and left yudy purulence appear normal If symptoms persist of the fracture recommend CT pelvis.
--- NOTE | 2025-05-18 14:21 | DVHDSRES ---
Discharge Summary Date of Admission Resident Creating Document: JAYSON NORIEGA RESIDENT May 15, 2025 at 05:10 Date of Discharge: May 18, 2025 Admitting Diagnosis #Acute chest pain in pacemaker site implantation #Noncompliance with antibiotics post ppm implantation #Possible abscess on pacemaker site implantation #Generalized weakness due to above #Chronic Paroxysmal atrial fibrillation #Chronic Congestive heart failure, diastolic, no exacerbation #Chronic hypertensive disease with diastolic failure #Chronic Diabetes mellitus type 2, with hyperglycemia #CKD Stage 2 #Chronic HIV infection #Obesity Wounds: No wound on admission. Labs/Diagnostic Data: Laboratory Results Test 05/18/25 12:28 05/18/25 06:17 05/16/25 04:55 05/15/25 14:00 POC Glucose 202 mg/dl (70-106) White Blood Count 5.1 10^3/uL (4.4-10.8) Red Blood Count 4.99 10^6/uL (4.0-5.20) Hemoglobin 15.1 g/dL (12.2-16.2) Hematocrit 44.2 % (36.0-46.0) Mean Corpuscular Volume 88.5 fL (80.0-100.0) Mean Corpuscular Hemoglobin 30.2 pg (28.0-32.0) Mean Corpuscular Hemoglobin Concent 34.1 g/dL (32.0-36.0) Red Cell Distribution Width 15.4 % (11.8-14.3) Platelet Count 114 10^3/uL (140-450) Mean Platelet Volume 10.1 fL (6.9-10.8) Neutrophils (%) (Auto) 68.4 % (37.0-80.0) Lymphocytes (%) (Auto) 17.5 % (10.0-50.0) Monocytes (%) (Auto) 9.4 % (0.0-12.0) Eosinophils (%) (Auto) 3.6 % (0.0-7.0) Basophils (%) (Auto) 1.1 % (0.0-2.0) Neutrophils # (Auto) 3.5 10 ^3/uL (1.6-8.6) Lymphocytes # (Auto) 0.9 10 ^3/uL (0.4-5.4) Monocytes # (Auto) 0.5 10 ^3/uL (0-1.3) Eosinophils # (Auto) 0.2 10 ^3/uL (0-0.8) Basophils # (Auto) 0.1 10 ^3/uL (0-0.2) Nucleated Red Blood Cells 0.0 % Sodium Level 144 mmol/L (136-145) Potassium Level 4.0 mmol/L (3.5-5.1) Chloride Level 111 mmol/L (98-107) Carbon Dioxide Level 25 mmol/L (20-31) Anion Gap 8 (5-15) Blood Urea Nitrogen 10 mg/dL (9-23) Creatinine 0.96 mg/dL (0.550-1.02) Glomerular Filtration Rate Calc 68 mL/min (>90) BUN/Creatinine Ratio 10.4 (10.0-20.0) Serum Glucose 161 mg/dL (74-106) Calcium Level 9.9 mg/dL (8.7-10.4) Magnesium Level 1.8 mg/dL (1.6-2.6) Random Vancomycin Level 5.6 ug/mL (5-10) Absolute Neutrophils (auto) 3.1 x10E3/uL (1.4-7.0) Absolute Lymphocytes (auto) 1.4 x10E3/uL (0.7-3.1) Absolute Monocytes (auto) 0.5 x10E3/uL (0.1-0.9) Absolute Eosinophils (auto) 0.3 x10E3/uL (0.0-0.4) Absolute Basophils (auto) 0.1 x10E3/uL (0.0-0.2) Immature Granulocytes % 0 % (Not Estab.) Immature Granulocytes # 0 x10E3/uL (0.0-0.1) Immature Blood Cells (.) Hematology Comments (.) Total Bilirubin 0.2 mg/dL (0.2-1.0) Aspartate Amino Transferase (AST) 35 U/L (13-40) Alanine Aminotransferase (ALT) 30 U/L (7-40) Alkaline Phosphatase 78 U/L (46-116) Troponin I High Sensitivity 3 ng/L (</=34) Total Protein 6.5 g/dL (5.7-8.2) Albumin 3.8 g/dL (3.2-4.8) Percent CD4 Cells 66.2 % (30.8-58.5) Absolute CD4 Count 927 /uL (359-1519) T-Lymphocyte CD4/CD8 Ratio 2.92 (0.92-3.72) Percent CD8 Cells 22.7 % (12.0-35.5) Absolute CD8 Count 318 /uL (109-897) Influenza Type A Antigen Negative (Negative) Influenza Type B Antigen Negative (Negative) SARS-CoV-2 Antigen (Rapid) Negative (NEGATIVE) Test 05/15/25 05:22 05/14/25 23:26 05/14/25 22:36 Prothrombin Time 10.3 sec (9.3-11.8) Prothrombin Time INR 0.97 (0.9-1.15) Activated Partial Thromboplast Time 25.6 SEC (24.5-34.5) Hemoglobin A1c 7.6 % A1C (<5.7) C-Reactive Protein High Sensitivity 0.61 mg/dL (<1.0) Triglycerides Level 329 mg/dL (< 150) Cholesterol Level 196 mg/dL (< 200) LDL Cholesterol 113 mg/dL (< 100) HDL Cholesterol 52 mg/dL (40-59) Vitamin B12 Level 309 pg/mL (211-911) Vitamin D 25-Hydroxy 23.5 ng/mL (30.0-100) Thyroid Stimulating Hormone (TSH) 2.91 uIU/mL (0.55-4.78) Urine Color Light-yellow (Yellow) Urine Clarity Clear (Clear) Urine pH 5.5 (5.0-9.0) Urine Specific [place] 1.025 (1.001-1.035) Urine Protein Trace (Negative) Urine Ketones Negative (Negative) Urine Blood Negative /uL (Negative) Urine Nitrite Negative (Negative) Urine Bilirubin Negative (Negative) Urine Urobilinogen Normal mg/dL (Negative) Urine Leukocyte Esterase Trace /uL (Negative) Urine RBC 2 /hpf (0 - 4) Urine Microscopic WBC 6 /HPF (0-5) Urine Squamous Epithelial Cells Few /hpf (<5) Urine Bacteria None seen /hpf (None Seen) Urine Glucose 4+ mg/dL (Normal) B-Type Natriuretic Peptide 74.00 pg/mL (0-100) Other Laboratory Tests 05/18/25 06:17 Brief Hx & Hospital Course: PHI: Felice Poole is a 59-year-old female, with past medical history of CHF, AFib, DM2, HIV (on antiretroviral therapy) and hypertension. The patient came to [facility] ED with the chief complaint of 2 weeks of progressively worsen chest pain, 7/10, intermittent, dull, localized on left upper part of the chest. On further questioning, the patient reported she had pacemaker placed 2 weeks ago and has been having intermittent episode of chest pain since then; associated with general weakness, subjective fever, chills and malaise. 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 The patient denies nausea, vomit, abdominal pain, secretion from the location of the pacemaker. The patient reported noticing more swelling, erythema and edema from the area of the pacemaker, and pain increased to 9/10, this prompted her visit to the ED. The patient was seen and evaluated in the ED, laboratory data shows WBC 7.1, troponin 5, BNP 74.00, On images, the chest x-ray revealed new cardiac pacer, no pneumothorax, no definite acute cardiopulmonary process. US of the chest showed a complex region seen in the area of patient's palpable lump measuring 3.3 x 4.4 x 2.1 cm, an abscess cannot be excluded.Please see medication orders section in the computer. On my assessment, patient denied chest pain at this moment, no headache, dizziness, diaphoresis, shortness of breaths, no diarrhea, nausea, vomiting, fever, no chills. Patient was admitted for further evaluation and medical management. Past Medical History AFIB, CHF, CKD, DM, HTN, HIV Past Surgical History Cholecystectomy, Hernia Repair, Pacemaker, Thyroidectomy Family History Reviewed, noncontributory to the management of this case. Past Social History The patient lives at assisted care living, smokes cigarettes less than 1 pack per day, denies alcohol or illicit drugs abuse. Home medications: abacavir/dolutegravir/lamivudine Hospital course: During her admission in [facility] the patient was examined and evaluated at bedside. The patient's VS, labs and chart was reviewed every day. The patient was assessed as follow: On 05/15/25: The patient still had general weakness. Since admission the patient reports chest pain localized on the insertion of the pacemaker, 8/10 that improved mildly with analgesics. The patient received IV antibiotics (Vancomycin) The cardiology team was consulted, they recommended to continue with medical management with IV antibiotics, no procedure was recommended at this time. On 05/16/25:The patient reports chest pain 9/10 in the middle of the chest and over the pacemaker, new EKG was requested, it showed atrial-paced complexes. No significant ST changes, troponins are 3. No Afib episodes were reported on telemetry. Pacemaker interrogation was requested, still pending at this time. . On 05/17/29: there is swelling on the pacemaker site with some fluctuation metronidazole was added for anaerobic coverage. On 05/18/25: The patient reports chest pain improvement on swelling and pain on the location of the pacemaker. Due to clinical improvement the patient will be discharge home with oral antibiotic: Doxycycline per cardiology recommendations. The patient will follow up tomorrow with cardiology at 4:00pm. The patient will follow up with PCP and d/c clinic within 72 hrs. All patient's question were answered satisfactorily, warning signs and when to return to the ED recommendations were given, patient agreed to understanding. ROS Constitutional: Generalized weakness has improved; No: Fever, Chills, Sweats, Malaise, Other Eyes: No: Pain, Vision change, Conjunctivae inflammation, Eyelid inflammation, Other, Redness ENT: No: Ear pain, Ear discharge, Nose pain, Nose discharge, Nose congestion, Mouth pain, Mouth swelling, Throat pain, Throat swelling, Other Respiratory: No: Cough, Dry, Shortness of breath, SOB with excertion, Wheezing, Hemoptysis, Pleuritic Pain, Sputum, Wheezing, Other Cardiovascular: Chest Pain 9/10 and a "lump" over the insertion of the pacemaker; No: Palpitations, Orthopnea, Paroxysmal Noc. Dyspnea Gastrointestinal: No: Nausea, Vomiting, Abdominal Pain, Diarrhea, Constipation, Melena, Hematochezia, Other Genitourinary: No Dysuria, No Frequency, No Incontinence, No Hematuria, No Retention, No Other Musculoskeletal: No: other, neck pain, shoulder pain, arm pain, back pain, hand pain, leg pain, foot pain Skin: No: Rash, Lesions, Jaundice, Bruising, Other Neurological: No: Weakness, Numbness, Incoordination, Change in speech, Confusion, Seizures, Other Allergies:Loperamide (Verified Allergy, Severe, 08/13/23) Nystatin (Verified Allergy, Severe, 08/13/23) Penicillins (Verified Allergy, Severe, 08/13/23) Diphenhydramine (Verified Allergy, Unknown, 09/23/24) Physical Exam General Appearance: Alert, Oriented X3, Cooperative, in acute distress HEENT: Atraumatic, PERRLA, EOMI, Mucous membr. moist/pink Respiratory: Clear to auscultation, Normal air movement Chest: The swelling, edema and erythema over the left upper chest area where the pace maker was implanted has improved Surgical incision with tin in place, no active bleeding or discharge. No warmth or erythema. Mild tenderness on palpation. Cardiovascular: Regular rate, Normal S1, Normal S2, No murmurs. Abdominal: Normal bowel sounds, Soft, No tenderness, No hepatospenomegaly, No masses Extremities: No clubbing, No cyanosis, No edema, Normal pulses, No tenderness/swelling Skin: No rashes. Neuro: Normal speech, Normal tone, Sensation intact, Cranial nerves 3-12 NL, Reflexes 2+, Other (Generalized weakness) Psych/Mental Status: Mental status NL, Mood NL Plan: D/C home Cardiac diet Doxycycline 100mg po bid x 14 days Continue with home medications F/U with Dr. Chaves 05/19/25 at 4:00pm F/U with PCP and d/c clinic in 75hrs. F/U with ID specialist in 1 week. Consults/Reason for consult Cardiology: Infection on pacemaker site implantation Operations or Procedures PROCEDURE(s): CHSTU - CHEST ULTRASOUND REASON: Ultrasound pacemaker site for abscess ORDER NUMBER(s): [id number], ACCESSION NUMBER(s): [id number] Left Chest Sonogram Date: 05/14/2025 11:26 PM CLINICAL HISTORY: Ultrasound pacemaker site for abscess FINDINGS/IMPRESSION: Multiple images were obtained of the left chest wall. There is a complex region seen in the area of patient's palpable lump measuring 3.3 x 4.4 x 2.1 cm, an abscess cannot be excluded. Close clinical and sonographic follow-up is suggested. ATED BY: KELLY SUÁREZ MD DICTATED DATE/TIME: 05/15/25 0132 PROCEDURE(s): CXRP - CHEST PORTABLE REASON: CHEST PAIN ORDER NUMBER(s): [id number], ACCESSION NUMBER(s): [id number] CHEST RADIOGRAPH REASON FOR EXAM: CHEST PAIN COMPARISON: XY CHEST XRAY 1 VIEW on DOS: 04/22/25, XY CHEST PORTABLE on DOS: 04/17/25, XY CHEST PORTABLE on DOS: 01/24/25, XY CHEST XRAY 1 VIEW on DOS: 01/09/25, CT CT ANGIO CHEST CONTRAST on DOS: 01/02/25 TECHNIQUE: One view of the chest is provided FINDINGS: The cardiomediastinal silhouette is stable. There is aortic atherosclerosis. There is a new 2 lead pacer projecting over the left chest. There is no pneumothorax. There is no definite airspace disease. There is diffuse interstitial prominence, likely chronic changes. There is no significant pleural effusion. No acute osseous abnormality is identified. IMPRESSION: New cardiac pacer. No pneumothorax. No definite acute cardiopulmonary process. EDURE(s): EKG - ELECTROCARDIGRAM ORDER NUMBER(s): [id number], ACCESSION NUMBER(s): [id number] [facility] Test Date: 2025-05-15 Test Time: 00:02:21 Pat Name: FELICE COLE Department: [facility] ED Patient ID: [id number] Room: [address] [place] [address] Gender: F Medical Affairs Director: : 1965 Requested By: DESIRAE WAYNE Order Number: [id number] Reading MD: Measurements Intervals [place] Rate: 60 P: 52 DE: 150 QRS: 163 QRSD: 94 T: 46 QT: 454 QTc: 454 Interpretive Statements Sinus rhythm Probable left atrial enlargement Left posterior fascicular block Anteroseptal infarct, age indeterminate Please click the below link to view image of tracing. DICTATED BY: DICTATED DATE/TIME:05/15/25 0002 Condition at Discharge: Stable Final Diagnosis/Problems List #Possible abscess on pacemaker site implantation #Acute chest pain in pacemaker site implantation #Noncompliance with antibiotics post ppm implantation #Generalized weakness due to above #Chronic Paroxysmal atrial fibrillation #Chronic Congestive heart failure, diastolic, no exacerbation #Chronic hypertensive disease with diastolic failure #Chronic Diabetes mellitus type 2, with hyperglycemia #CKD Stage 2 #Chronic HIV infection #Obesity Discharge Disposition: Home SNF Discharge Will this Physician continue t: No Discharge Instruct/Medications Diet: Cardiac 2g Na,low cholest Activity: No Restrictions, As Tolerated Follow Up/Referral: F/U with Dr. Chaves today at 1600 F/U with PCP in 1 week F/U with ID in 1 week D/C in OR clinic Medications: Doxycycline 100mg po daily for 7 days Scheduled Ztryysah-Ovjkfplysxms-Bqbvzhfh (Triumeq 600-50-300 mg), 1 TAB PO DAILY, (Reported) Amiodarone HCl (Amiodarone HCl), 100 MG PO BID Apixaban Base (Eliquis), 1 TAB PO BID, (Reported) Aspirin (Aspirin), 1 TAB PO DAILY, (Reported) Atorvastatin Calcium (Atorvastatin Calcium), 1 TAB PO DAILY, (Reported) Cetirizine HCl (Cetirizine Hydrochloride), 1 TAB PO DAILY, (Reported) Cholecalciferol (Vitamin D-3), 2,000 UNIT PO DAILY Cyclobenzaprine HCl (Cyclobenzaprine Hydrochlo), 10 MG PO TID Dapagliflozin Propanediol (Dapagliflozin Propanediol), 1 TAB PO DAILY, (Reported) Dapagliflozin Propanediol (Farxiga), 5 MG PO DAILY, (Reported) Doxycycline (Monohydrate) (Doxycycline), 100 MG PO BID Duloxetine Hcl (Cymbalta), 1 CAP PO BID, (Reported) Ferrous Sulfate (Ferosul), 1 TAB PO DAILY, (Reported) Furosemide (Lasix), 40 MG PO DAILY, (Reported) Insulin Glargine (Basaglar Kwikpen), 100 UNITS SC BID, (Reported) Insulin Lispro (Insulin Lispro Kwikpen), 10 UNITS SC DAILY, (Reported) Lisinopril (Lisinopril), 2.5 MG PO DAILY, (Reported) Potassium Chloride (Potassium Chloride Cr), 1 TAB PO DAILY, (Reported) Pregabalin (Pregabalin), 1 CAP PO TID, (Reported) Sitagliptin Phosphate (Januvia), 1 DAILY, (Reported) Scheduled PRN Acetaminophen (Acetaminophen), 500 MG PO Q8HPRN PRN for MILD PAIN, (Reported) Famotidine (Famotidine), 1 TAB PO BID PRN for ACID REFLUX AND ABDOMINAL PAIN, (Reported) Discontinued Medications Cyclobenzaprine HCl (Cyclobenzaprine Hydrochlo), 1 TAB PO BID PRN for PAIN FOR MUSCLE SPASMS, (Reported) Hydrocodone-Acetaminophen (Hydrocodone/Acetaminophen 5-325 mg), 2 TAB PO BID, (Reported) Hydrocodone-Acetaminophen (Hydrocodone Bitartrate/AC 5-325 mg), 1 TAB PO Q6HP PRN Discharge Statement: "Patient was advised to return to the ER or call 911 if any headaches, dizziness, shortness of breath, chest pain, abdominal pain, bleeding, fevers, or worsening of medical condition. Patient was counseled about treatment plan, medications, possible side effects, patientverbalized understanding. All questions were answered to the best of my ability. This discharge took greater then 30 minutes in planning, reviewing documentation, counseling the patient, and discussing with other team members." Discharge Care Plan Instructions Take Rx medications, Notify MD of any issues, Keep list of meds w/ you, Do not drink ETOH/smoke, Call 911 in an emergency, F/U w/ PCP ASSESSMENT ASSESSMENT Assessment #Acute chest pain in pacemaker site implantation #Noncompliance with antibiotics post ppm implantation #Possible abscess on pacemaker site implantation #Generalized weakness due to above #Chronic Paroxysmal atrial fibrillation #Chronic Congestive heart failure, diastolic, no exacerbation #Chronic hypertensive disease with diastolic failure #Chronic Diabetes mellitus type 2, with hyperglycemia #CKD Stage 2 #Chronic HIV infection #Obesity Diet Cardiac diet Code status: full code Disposition: Home no needs. 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 Patient agrees with the discharge plan Case discussed with Dr. Rock Visit Coding STANDARD RES Billing Provider: MATILDA VILLA MD Date of Service if different f: May 18, 2025 Common Visit Codes: 65926-GKU/OBS DISCH DAY >30min JAYSON NORIEGA RESIDENT May 18, 2025 14:21 SHEILA AVILEZ RESIDENT May 19, 2025 08:11
[2025-05-18 16:42] VITALS: BP 107/78; PULSE 61; RESP 18; TEMP 98.3; O2SAT 98
--- NOTE | 2025-05-18 23:16 | DVHPN2 ---
Progress Note - Dictate Date Seen: May 18, 2025 Has the PT tested + for MRSA If YES, has PT been informed?: No Medical Necessity Reason Pt with a Central, PICC or Fol: No Subjective Patient was seen and evaluated in follow up. Patient has no new complaints at this time. Patient denies any cardiac symptoms. Patient is cardiac stable for discharge. Telemetry reviewed. vital signs Vital Sign Date Time Temp Pulse Resp B/P (MAP) Pulse Ox O2 Delivery O2 Flow Rate FiO2 05/18/25 16:42 98.3 61 18 107/78 (88) 98 98.3 05/18/25 07:30 Room Air* 0 21 Total Intake and Output 05/17/25 05/17/25 05/18/25 15:00 23:00 07:00 Intake Total 240 ml 580 ml 150 ml Output Total 100 ml Balance 240 ml 580 ml 50 ml objective GENERAL: Alert and oriented x 3. No acute distress. EYES: PERRL, EOMI. Anicteric. HENT: Moist mucous membranes. LUNGS: Clear to auscultation bilaterally. CARDIOVASCULAR: Regular rate and rhythm. ABDOMEN: Soft, nontender and nondistended. EXTREMITIES: No edema. NEUROLOGIC: No focal neurological deficits. SKIN: Warm, dry. Chantel at the site of PPM implantation, fluctuant swelling without overlying erythema. laboratory and microbiology Laboratory Tests 05/18/25 06:17 Test 05/18/25 06:17 Range/Units Serum Glucose 161 H 74-106 mg/dL Problem List Acute chest pain at pacemaker site implantation. ?Possible abscess, noncompliance with antibiotics post ppm implantation. Paroxysmal atrial fibrillation. Congestive heart failure, diastolic, no exacerbation. Assessment/Plan Continued all current supportive medical care. Morphine and [place] for pain management. Aspirin, Lipitor, Metoprolol. DVT prophylactics. Lisinopril. Nitro SL. Additional plan as per the hospital course. Plan discussed with: Patient DARRELL SIN MD May 18, 2025 23:16
== END 2025-05-18 17:15 | disposition home or self-care (01) | DRG 206 ==
LOC: EDBD 22:21 → ER 22:21 → OVERFLOW 05-15 05:10 → TELE-CENTR 05-15 18:48
PROVIDERS: ADMIT Student in an Organized Health Care Education/Training Program; ATTEND Student in an Organized Health Care Education/Training Program
DX: T82.897A Other specified complication of cardiac prosthetic devices, implants and grafts, initial encounter (principal); I50.32 Chronic diastolic (congestive) heart failure; I13.0 Hypertensive heart and chronic kidney disease with heart failure and stage 1 through stage 4 chronic kidney disease, or unspecified chronic kidney disease; L02.91 Cutaneous abscess, unspecified; E66.9 Obesity, unspecified; E11.22 Type 2 diabetes mellitus with diabetic chronic kidney disease; E11.65 Type 2 diabetes mellitus with hyperglycemia; Z79.01 Long term (current) use of anticoagulants; F17.210 Nicotine dependence, cigarettes, uncomplicated; I48.0 Paroxysmal atrial fibrillation; N18.2 Chronic kidney disease, stage 2 (mild); Z88.0 Allergy status to penicillin; Z68.34 Body mass index [BMI] 34.0-34.9, adult; Z79.899 Other long term (current) drug therapy; Z79.4 Long term (current) use of insulin; Z95.0 Presence of cardiac pacemaker; Z86.73 Personal history of transient ischemic attack (TIA), and cerebral infarction without residual deficits; Z83.3 Family history of diabetes mellitus; Z82.49 Family history of ischemic heart disease and other diseases of the circulatory system; Z90.49 Acquired absence of other specified parts of digestive tract; Z91.199 Patient's noncompliance with other medical treatment and regimen due to unspecified reason; Y84.8 Other medical procedures as the cause of abnormal reaction of the patient, or of later complication, without mention of misadventure at the time of the procedure; Y92.89 Other specified places as the place of occurrence of the external cause
CPT/HCPCS: 36415; 71045; 72170; 80048; 80053; 80061; 80202; 81001; 82306; 82607; 82962; 83036; 83735; 83880; 84443; 84484; 85025; 85610; 85730; 86141; 86360; 87040; 87426; 87804; 93005; G0378; J1815; J2405; J3490